=== PATIENT | female | born 1945 | race Caucasian/White ===

== ENCOUNTER → 2017-06-03 13:22 | Outpatient (CLI) | payer MEDICARE, OTHER, SELFPAY ==
[2017-05-07 13:46] VITALS: BP 164/80; BMI 32.8
--- NOTE | 2017-06-03 13:26 | STE_ITS ---
Reason For Study: CHEST PAIN Stress Results Protocol: Dobutamine Maximum Predicted HR: 149 bpm Target HR: 127 bpm% Maximum Predicted HR: 87 % DurationHeart Rate Stage (mm:ss) (bpm) BPDos e BASELINE 69 187/98 STAGE 1 3:00 67 168/9210.00 STAGE 2 5:00 11 2 194/9520.00 STAGE 3 3:34 12 9 184/7330.00 BASELINE 68 184/92 Stress Duration: 11:34 mm:ss Maximum Stress HR: 129 bpm Baseline Echocardiogram Findings The estimated ejection fraction is 45-50 %. Stress Echo Wall motion Data Resting WMIntermediate WMStress WM Resting Wall Motion Wall Motion Stress Mild global LV dysfunction. LV dilatation at peak infusion. EKG Data Normal intervals are noted. The patient was titrated from 10 mcg to a maximun of 30 mcg of dobutamine during the stress. The maximum heart rate attained was 136 beats per minute. This was 91% of maximum predicted heart rate. During dobutamine infusion, there were no ST or T wave changes noted to suggest ischemia. No clinical angina was noted. Interpretation Summary Total Definity used was 1 ml per protocol during procedure Mild global LV dysfunction. LV dilatation at peak infusion. The patient was titrated from 10 mcg to a maximun of 30 mcg of dobutamine during the stress. Abnormal, adequate, dobutamine echocardiogram. Positive for ischemia by echocardiographic criteria. The patient appeared to develop global LV dilatation at peak infusion. Rare PVCs noted. Hypertensive blood pressure response to dobutamine. Previous to the dobutamine immediately prior to conversion to dobutamine the patient attempted a modified Basilio treadmill echocardiogram however was unable to go any further than around 6 minutes 31 seconds before she became profoundly fatigued, short of breath and wheezy. Poor echo windows requiring Definity and enhancement agent. Baseline global LV dysfunction with EF around 45%. Final LVEF of 55%. Patient tolerated procedure well no complications. Ordering Physician: Ellis Keating Referring Physician: Ellis Keating Performed By: Keny Truong RT
== END ==
PROVIDERS: Family Provider Family Medicine Geriatric Medicine; PCP Family Medicine Geriatric Medicine; Visit Provider Internal Medicine Cardiovascular Disease
DX: I10 Essential (primary) hypertension (principal); E78.2 Mixed hyperlipidemia; I48.0 Paroxysmal atrial fibrillation; R07.9 Chest pain, unspecified
CPT/HCPCS: 93017; 93350; Q9957; A4216; C8928

== ENCOUNTER → 2017-06-05 13:25 | Outpatient (CLI) | payer MEDICARE, OTHER, SELFPAY ==
--- NOTE | 2017-06-05 13:30 | RAD_ITS ---
STUDY: X-RAY CHEST REASON FOR EXAM: Female, 71 years old. Shortness of breath, chest pain and intermittent numbness and tingling in the hands and fingers. TECHNIQUE: 2 views COMPARISON: Prior chest radiograph of June 29, 2016 FINDINGS: The lung flanagan are expanded without new consolidation or focal atelectasis. Stable chronic bibasilar changes. The appearance of a dense nodule over the left upper lobe appears to be callus related to a prior fracture of the left sixth rib. Stable cardiac size. Normal mediastinum and derek. Normal visualized pulmonary arteries. There is atherosclerotic calcification of the aortic arch with tortuosity. There is demineralization of the osseous structures. Severe compression deformity of the upper thoracic spine, probably T6, which is more compressed and now more sclerotic than on the prior exam. Severe compression deformity of the lower thoracic spine, probably T10, now status post kyphoplasty. There is no demonstrated abnormality of the visualized soft tissue structures of the upper abdomen. RAD/Chest PA and Lateral IMPRESSION: No acute cardiopulmonary findings or changes. Negative for new major consolidation, focal atelectasis or a substantial pleural effusion. Stable cardiac size. Atherosclerosis. Callous collar of a old fracture of the posterior left sixth rib projects over the left upper lobe. Incidental thoracic spine findings as stated above. Electronically Signed: Sheryl Cruz MD at 18:45 EST , Service support ,
[2017-06-05 14:12] LABS: Absolute Lymphocyte Count 0.73 X10^3/ul (0.83-4.51); Absolute Neutrophil Count 3.8 X10^3/uL (2.0-7.7); Eosinophil# 0.07 X10^3/uL; Eosinophils% 1.4 % (0-5); Hematocrit 36.7 % (37-47); Hemoglobin 11.9 g/dl (12.0-15.0); Lymphocyte # 0.73 X10^3/ul (4.0); Lymphocyte % 14.2 % (19-41); Mean Corp Hgb Conc 32.4 g/gl (32-36); Mean Corpuscular Hgb 30.4 pg (27.0-32.0); Mean Corpuscular Volume 93.9 fL (81-99); Mean Platelet Vol. 8.3 fl (6.2-12.0); Monocyte# 0.57 X10^3/uL; Monocyte% 11.1 % (0-10); Neutrophil # 3.75 X10^3/uL (2.7-7.7); Neutrophil % 73.1 % (47-70); Platelet Count 210 K/mm3 (150-450); RBC Distribution Width CV 13.6 % (11.6-14.6); RBC Distribution Width SD 46.8 fl (35.1-43.9); Red Blood Count 3.91 M/mm3 (4.2-5.4); White Blood Count 5.1 K/mm3 (4.4-11.0)
[2017-06-05 14:15] LABS: POSITIVE COUNT NO; POSITIVE DIFFERENTIAL NO; POSITIVE MORPHOLOGY NO
[2017-06-05 14:16] LABS: Partial Thromboplast Time 30.7 Seconds (24.1-36.2); Prothrombin Time (Protime)PT. 13.3 SECONDS (11.7-14.9)
[2017-06-05 14:46] LABS: Anion Gap 8 (5-15); BUN 19 mg/dL (7-18); BUN/Creat Ratio 24.9 RATIO (10-20); Calcium,Total 8.6 mg/dL (8.5-10.1); Chloride 102 mmol/L (98-107); Creatinine, Serum 0.76 mg/dL (0.55-1.02); EST Glomerular Filtration Rate 79 mL/min (>60); Est Glom Filt Rate - Afr Amer 96 mL/min (>60); Glucose 80 mg/dL (74-106); Potassium 4.2 mmol/L (3.5-5.1); Sodium Level 135 mmol/L (136-145)
== END ==
PROVIDERS: Family Provider Family Medicine Geriatric Medicine; PCP Family Medicine Geriatric Medicine; Visit Provider Internal Medicine Cardiovascular Disease
DX: R94.39 Abnormal result of other cardiovascular function study (principal); M94.0 Chondrocostal junction syndrome [Tietze]; I10 Essential (primary) hypertension; E78.2 Mixed hyperlipidemia; I48.0 Paroxysmal atrial fibrillation; R55 Syncope and collapse; R00.1 Bradycardia, unspecified; R07.9 Chest pain, unspecified
CPT/HCPCS: 36415; 71046; 80048; 85025; 85610; 85730

== ENCOUNTER → 2017-06-12 07:13 | Day surgery (SDC) | payer MEDICARE, OTHER, SELFPAY ==
[2017-06-11 09:54] VITALS: BMI 32.8
[2017-06-12 09:31] LABS: Blood Gas Specimen Type VEN; VBG BASE EXCESS 1 mmol/L (-1.0-3.5); VBG Bicarbonate 26 mmol/L (22-26); VBG Oxygen Content 27 mmol/L (23-33); VBG PO2 50 mmHg (25-40); VBG SO2 86 % (50-70); VBG pCO2 40.1 mmHg (41-51); VBG pH 7.42 (7.32-7.42)
[2017-06-12 09:31] LABS: Base Excess 1 mmol/L (-2 to +2); Blood Gas Specimen Type ART; PO2 85 mmHG (75-100); SO2 97 % (95-99); Total Carbon Dioxide 26 mmol/L; pH 7.44 (7.35-7.45)
[2017-06-12 09:31] LABS: Blood Gas Specimen Type VEN; VBG BASE EXCESS 0 mmol/L (-1.0-3.5); VBG Bicarbonate 25 mmol/L (22-26); VBG Oxygen Content 26 mmol/L (23-33); VBG PO2 45 mmHg (25-40); VBG SO2 81 % (50-70); VBG pCO2 40.8 mmHg (41-51)
--- NOTE | 2017-06-12 09:34 | CL.D_ITS ---
Patient Name: MARGARETTE WISE Study Date: 06/12/2017 Performing: Ellis Keating MD Ht: 57.08 inches 145 cm : 1945 Wt: 152.12 lbs 69 kg Age: 71 Gender: female BSA: 1.6 PROCEDURE(S) PERFORMED [id number]/LHC/COR/LV CLINICAL PROFILE AND INDICATIONS INDICATIONS: Shortness of Breath Stress/Imaging Stress Echocardiogram: Yes Result: IndeterminantStress Echocardiogram: Indetermina nt Angina Classification Anginal Classification w/in 2 Weeks: CCS III CAD Presentations: Unstable angina. Comorbidities/Risk Factors: 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 Dyslipidemia Prior CHF CONCLUSIONS Global LV systolic dysfunction- Mild Non obstructive coronary arteries Cardiac output - Preserved The patient has pulmonary hypertension which is moderate. RECOMMENDATIONS D/c plavix, d/c HCTZ, start lasix 40mg po daily, increase lisinopril to 40mg po qd. BP check in 2 wee ks. Successful Mynx closure of RFA due to severe HTN. DESCRIPTION OF PROCEDURE The patient arrived to the procedure lab. The risks and benefits of the procedure as well as a full d escription of our services here and current unavailability of surgical backup were fully explained to the patient and/or their significant other prior to the catheterization. The Timeout was completed, verifying the correct patient and procedure. The patient's procedural site was prepped and draped in the usual fashion. Local anesthetic was given subcutaneously to right groin region with Lidocaine 2%. Using a modified Seldinger technique, arterial access was obtained via the right femoral artery, a 4 Fr sheath was inserted Venous access was obtained via the right femoral vein, a 7Fr sheath was insert ed. A 7Fr thermal dilution catheter was inserted and right heart pressures were recorded, it was then advanced to PA position for cardiac outputs. Thermal dilution cardiac outputs were then recorded. O2 saturations were then obtained. The Thermal dilution catheter was then removed. Left Ventriculograph y was performed in MEDELLIN projection using a 4 Fr. Pigtail catheter. LV to AO pullback pressures were th en recorded. Left Coronary Artery selective angiography was performed in multiple views using a 4 Fr. JL5 catheter. Right Coronary Artery selective angiography was then performed in multiple views using a 4 Fr. 3DRC catheter.The arterial sheath was pulled and a Mynx closure device was deployed for hemo stasis. The venous sheath was then pulled and manual compression applied until hemostasis achieved CORONARY ANGIOGRAPHY DOMINANCE: Right Dominant LEFT HEART ASSESSMENT Left Ventricular Ejection Fraction: by LV Gram 45-50 % Global Hypokinesis - Mild Depressed Left Ventricular systolic function Elevated Left Ventricular End Diastolic Pressure RIGHT HEART ASSESSMENT Thermal CO: 8.05 Thermal CI: 5.03 PW: 14 PA: 37/16 24 RV: 53/6 16 RA: 11 PVR: 99 SVR: 1242 Pulmonary 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 Right Heart pressures - elevated LEFT MAIN: Angiographically normal LEFT ANTERIOR DECENDING ARTERY: Angiographically normal CIRCUMFLEX ARTERY: Angiographically normal RIGHT CORONARY ARTERY: Angiographically normal COMPLICATIONS No Complications PROCEDURE MEDICATIONS Versed 1 mg IV Nitro 200 mcg IC 06/12/2017 09:12:23 SUMMARY OF HEMODYNAMIC DATA Time AIR REST ECG 07:38:18 RA (11) SV 08:55:50 RV 53/6, 16 08:56:24 PA 37/16 (24) PA 08:59:20 PW (14) PV 09:00:01 LV 204/8, 17 09:05:35 LV 203/7, 15 09:06:13 PW (19) 09:06:13 LV 195/6, 15 09:07:09 RV 52/4, 15 09:07:09 LV 207/-9, 18 09:08:25 LVp 211/-10, 19 09:08:30 AOp 204/91 (132) 09:08:35 AO 181/99 (136) SA 09:10:33 Type SV CO (l/m) CI (l/m/ HR Time AIR REST Thermal 136.40 8.05 5.03 59 07:38:18 Label % O2 Pres/Loc Time AIR REST AO 97 PV 09:15:19 PA 84 PA 09:15:35 Signed By Ellis Keating MD On 06/12/2017 09:33:29 Ellis Keating MD
== END ==
PROVIDERS: Family Provider Family Medicine Geriatric Medicine; PCP Family Medicine Geriatric Medicine; Visit Provider Internal Medicine Cardiovascular Disease
DX: R07.9 Chest pain, unspecified (principal); I48.0 Paroxysmal atrial fibrillation; I10 Essential (primary) hypertension; E78.2 Mixed hyperlipidemia
CPT/HCPCS: 82803; 93460; 99152; 99153; C1760; J7040; C1751; C1769; C1894; Q9967

== ENCOUNTER → 2017-11-25 14:15 | Outpatient (CLI) | payer MEDICARE, OTHER, SELFPAY ==
[2017-11-25 16:16] LABS: Absolute Lymphocyte Count 0.95 X10^3/ul (0.83-4.51); Absolute Neutrophil Count 3.9 X10^3/uL (2.0-7.7); Basophil# 0.01 X10^3/uL; Basophil% 0.2 % (0-1); Eosinophil# 0.28 X10^3/uL; Hematocrit 36.4 % (37-47); Hemoglobin 12.1 g/dl (12.0-15.0); Lymphocyte # 0.95 X10^3/ul (4.0); Lymphocyte % 16.9 % (19-41); Mean Corp Hgb Conc 33.2 g/gl (32-36); Mean Corpuscular Hgb 30.6 pg (27.0-32.0); Mean Corpuscular Volume 92.2 fL (81-99); Monocyte# 0.47 X10^3/uL; Monocyte% 8.4 % (0-10); Neutrophil % 69.3 % (47-70); POSITIVE COUNT NO; POSITIVE DIFFERENTIAL NO; POSITIVE MORPHOLOGY NO; Platelet Count 261 K/mm3 (150-450); RBC Distribution Width CV 12.8 % (11.6-14.6); RBC Distribution Width SD 42.2 fl (35.1-43.9); Red Blood Count 3.95 M/mm3 (4.2-5.4); White Blood Count 5.6 K/mm3 (4.4-11.0)
[2017-11-25 16:31] LABS: Vitamin D,25 Hydroxy 23.4 ng/mL (29.95-100.01)
[2017-11-25 16:44] LABS: ALB/GLOB Ratio 1.1 RATIO (0.9-2.4); AST(SGOT) 24 U/L (15-37); Alanine Aminotransfer ALT/SGPT 24 U/L (13-56); Albumin, Serum 3.9 g/dL (3.2-5.0); Alkaline Phosphatase 83 U/L (45-117); Anion Gap 13 (5-15); BUN 14 mg/dL (7-18); BUN/Creat Ratio 14.5 RATIO (10-20); Calcium,Total 8.8 mg/dL (8.5-10.1); Chloride 101 mmol/L (98-107); Creatinine, Serum 0.97 mg/dL (0.55-1.02); EST Glomerular Filtration Rate 60 mL/min (>60); Est Glom Filt Rate - Afr Amer 73 mL/min (>60); Globulin 3.5 g/dL (2.2-4.2); Glucose 83 mg/dL (74-106); Potassium 3.9 mmol/L (3.5-5.1); Protein, Total 7.4 g/dL (6.4-8.2); Sodium Level 138 mmol/L (136-145); Thyroid Stim Hormone (TSH) 1.14 uIU/mL (0.358-3.74)
[2017-11-27 13:34] LABS: Hep C Antibodies 0.1 s/co ratio (0.0-0.9)
== END ==
PROVIDERS: Family Provider Family Medicine Geriatric Medicine; PCP Family Medicine Geriatric Medicine; Visit Provider Family Medicine Geriatric Medicine
DX: I10 Essential (primary) hypertension (principal); E55.9 Vitamin D deficiency, unspecified; Z13.89 Encounter for screening for other disorder
CPT/HCPCS: 36415; 80053; 82306; 84443; 85025; 86803

== ENCOUNTER 2018-01-27 18:17 | Emergency (ER) | payer MEDICARE, OTHER, SELFPAY ==
[2018-01-27 18:18] VITALS: BP 171/84; PULSE 64; RESP 18; TEMP 36.6; O2SAT 99; BMI 36.3
--- NOTE | 2018-01-27 18:54 | US_ITS ---
STUDY: VENOUS DOPPLER ULTRASOUND - LEFT LOWER EXTREMITY REASON FOR EXAM: Female, 72 years old. LT LOWER LEG REDNESS WARMTH, EDEMA X 2 DAYS NO PAIN TECHNIQUE: Ultrasound evaluation of the deep vein system to include barnard-scale imaging and compression was performed. Barnard-scale imaging and Doppler sonographic evaluation, including duplex spectral analysis and qualitative color flow sonography, was performed. COMPARISON: None. FINDINGS: Common Femoral Vein: Normal compression, spontaneity and augmentation. Normal color Doppler. Common Femoral Vein/Greater Saphenous Junction: Normal compression, spontaneity and augmentation. Normal color Doppler. Deep Femoral Vein: Normal compression, spontaneity and augmentation. Normal color Doppler. Femoral Proximal: Normal compression, spontaneity and augmentation. Normal color Doppler. Femoral Middle: Normal compression, spontaneity and augmentation. Normal color Doppler. Femoral Distal: Normal compression, spontaneity and augmentation. Normal color Doppler. Popliteal Vein: Normal compression, spontaneity and augmentation. Normal color Doppler. Posterior Tibial Vein: Normal compression, spontaneity and augmentation. Normal color Doppler. Peroneal Vein: Normal compression, spontaneity and augmentation. Normal color Doppler. US/Venous Duplex Imag/Limited/Uni IMPRESSION: Normal venous Doppler ultrasound of the lower extremity. Electronically Signed: Ty Anderson MD at 19:35 EDT , Service support ,
--- NOTE | 2018-01-27 18:57 | ED.DCSUM_ITS ---
- ER Visit Summary Date of Service: 01/27/18 Chief Complaint: LLE redness History of Present Illness: The patient is a 72 F presenting with left lower leg redness. She states this started approximately 4 days ago. She has mild pain and redness to the left lower extremity. Denies injury. Denies fever. Denies chest pain or shortness of breath. Physical Examination: Vitals are stable. Patient is afebrile. Alert no acute distress. HEENT exam is unremarkable. Neck is supple. Lungs are clear and equal bilaterally. Heart is regular rate and rhythm. Extremities mild anterior lower leg erythema, and mild right midfoot erythema. No calf tenderness. Normal distal pulses. Skin is warm and dry. No focal neurologic deficit. Remainder of exam is unremarkable. Emergency Department Course and Treatment: Patient was given Ancef IV. Venous Doppler shows no evidence of DVT. Discussed with Dr. Monaco and he will see her in the office tomorrow for recheck. She is given a prescription for Keflex. Advised return to ED if worsening complaints. Disposition: Discharge home Impression: Left lower extremity cellulitis This note was generated with [employer] dictation software. It may contain incorrect words, spelling, and punctuation that were not noted in review of the chart prior to signing ED Disposition - Plan for ED Patient: Chief Complaint: Lower Extremity Injury Instructions: ED Infec Skin Cellulitis Prescriptions: Cephalexin [Keflex] 500 mg PO Q6 #40 capsule Referrals: Cassius Monaco Chi, MD [Primary Care Provider] -
[2018-01-27] MEDS: Cefazolin 1 GM/50 ML BAG IV (19:00)
--- NOTE | 2018-01-27 19:49 | ED.DEP ---
ED Disposition - Plan for ED Patient: Chief Complaint: Lower Extremity Injury Instructions: ED Infec Skin Cellulitis Prescriptions: Cephalexin [Keflex] 500 mg PO Q6 #40 capsule Referrals: Cassius Monaco Chi, MD [Primary Care Provider] -
[2018-01-27 20:03] VITALS: BP 142/79; PULSE 81; RESP 22; O2SAT 98
--- NOTE | 2018-01-27 20:04 | ED.RN ---
THIS NURSE REVIEWED D/C INSTRUCTIONS WITH PT. PT VERBALIZED UNDERSTANDING OF INSTRUCTIONS. IV D/C. IV CATHETER INTACT. PT DENIES FURTHER NEEDS OR QUESTIONS AT THIS TIME. PT AMBULATES FROM ROOM ON OWN WITHOUT ASSISTANCE FROM STAFF
== END 2018-01-27 20:06 | disposition home or self-care (01) ==
LOC: ED 19:37
PROVIDERS: Emergency Provider Emergency Medicine; Family Provider Family Medicine Geriatric Medicine; PCP Family Medicine Geriatric Medicine
DX: L03.116 Cellulitis of left lower limb (principal); I10 Essential (primary) hypertension
CPT/HCPCS: 93971; 96365; 99283; J7050; A4216

== ENCOUNTER → 2018-02-01 11:13 | Outpatient (CLI) | payer MEDICARE, OTHER, SELFPAY ==
--- NOTE | 2018-02-01 11:38 | RAD_ITS ---
STUDY: X-RAY - LEFT FOOT CLINICAL: Acute pain across top of arch. TECHNIQUE: 3 view(s) of the foot. COMPARISON: Radiographs 01/23/2012. FINDINGS: There is osteopenia. There is a small plantar calcaneal enthesophyte. Normal visualized subtalar, talonavicular, calcaneocuboid, tarsal and tarsometatarsal articulations. There is chronic healed fracture deformity of the distal fifth metatarsal. Normal metatarsophalangeal joint of the great toe. There is mild hallux longus deformity. Normal tibial and fibular sesamoid bones. Normal interphalangeal joint of the great toe. Normal phalanges of the great toe. There are resection arthroplasties of the fourth and fifth proximal interphalangeal joints as on the prior study. There is vascular calcification. RAD/Foot min 3 Views IMPRESSION: Chronic healed fracture deformity of the fifth metatarsal. Postsurgical changes. Small plantar calcaneal enthesophyte. Osteopenia. Electronically Signed: Jay Beckett MD at 12:28 EDT Tel , Service support ,
[2018-02-01 12:40] LABS: Erythrocyte Sedimentation Rate 4 mm/hr (0-30)
[2018-02-01 12:43] LABS: Absolute Lymphocyte Count 0.85 X10^3/ul (0.83-4.51); Absolute Neutrophil Count 2.6 X10^3/uL (2.0-7.7); Basophil# 0.01 X10^3/uL; Basophil% 0.2 % (0-1); Eosinophil# 0.12 X10^3/uL; Eosinophils% 2.9 % (0-5); Hematocrit 34.8 % (37-47); Hemoglobin 11.2 g/dl (12.0-15.0); Lymphocyte # 0.85 X10^3/ul (4.0); Lymphocyte % 20.6 % (19-41); Mean Corp Hgb Conc 32.2 g/gl (32-36); Mean Corpuscular Hgb 29.9 pg (27.0-32.0); Mean Platelet Vol. 8.9 fl (6.2-12.0); Monocyte# 0.53 X10^3/uL; Monocyte% 12.9 % (0-10); Neutrophil % 63.2 % (47-70); Platelet Count 284 K/mm3 (150-450); RBC Distribution Width CV 13.3 % (11.6-14.6); Red Blood Count 3.74 M/mm3 (4.2-5.4); White Blood Count 4.1 K/mm3 (4.4-11.0)
[2018-02-01 12:45] LABS: POSITIVE COUNT NO; POSITIVE DIFFERENTIAL NO; POSITIVE MORPHOLOGY NO
[2018-02-01 12:46] LABS: Anion Gap 9 (5-15); BUN 17 mg/dL (7-18); BUN/Creat Ratio 26.9 RATIO (10-20); CRP 3.68 mg/L (0.0-3.0); Calcium,Total 9.1 mg/dL (8.5-10.1); Chloride 106 mmol/L (98-107); Creatinine, Serum 0.63 mg/dL (0.55-1.02); EST Glomerular Filtration Rate 99 mL/min (>60); Est Glom Filt Rate - Afr Amer 119 mL/min (>60); Glucose 76 mg/dL (74-106); Potassium 3.8 mmol/L (3.5-5.1); Sodium Level 142 mmol/L (136-145); Uric Acid 3.4 mg/dL (2.6-6.0)
== END ==
PROVIDERS: Family Provider Family Medicine Geriatric Medicine; PCP Family Medicine Geriatric Medicine; Referring Provider Family Medicine Geriatric Medicine; Visit Provider Family Medicine Geriatric Medicine
DX: M10.9 Gout, unspecified (principal); M79.609 Pain in unspecified limb
CPT/HCPCS: 36415; 73630; 80048; 84550; 85025; 85652; 86140

== ENCOUNTER → 2018-03-22 13:14 | Outpatient (CLI) | payer MEDICARE, OTHER, SELFPAY ==
[2018-03-22 13:15] VITALS: BMI 32.8
--- NOTE | 2018-03-22 13:19 | RAD_ITS ---
STUDY: X-RAY - RIGHT KNEE REASON FOR EXAM: Female, 72 years old. Postop 1-2 year follow-up. TECHNIQUE: 4 view(s) of the knee. COMPARISON: 4 views of the right knee September 12, 2016. FINDINGS: Again seen is prior right total knee arthroplasty. Metal prostheses overlying the femoral condyles and tibial plateau remain well seated, and in anatomic alignment. Radiolucent prosthesis along the posterior aspect of the patella also grossly stable. Normal visualized proximal fibula. There is no demonstrated destructive osseous lesion or fracture. Normal medial femorotibial compartment. Normal lateral femorotibial compartment. Normal patellofemoral articulation. Normal proximal tibiofibular articulation. There is stable minor soft tissue fullness in the suprapatellar and infrapatellar regions there is question of a very small volume joint effusion. The soft tissue structures are unremarkable. RAD/Knee 4 or More Views IMPRESSION: Prior right total knee arthroplasty again noted. Question of stable small joint effusion. No associated acute osseous abnormality of the right knee. Electronically Signed: Dimitri Swain MD at 14:06 EST , Service support ,
--- NOTE | 2018-03-22 13:19 | RAD_ITS ---
STUDY: X-RAY - LEFT KNEE REASON FOR EXAM: Female, 72 years old. 1-2 year postop follow-up. TECHNIQUE: 4 view(s) of the knee, 2 which are labeled as upright. COMPARISON: 4 weightbearing views of the left knee March 16, 2017. FINDINGS: Again seen are changes of prior left total knee arthroplasty. Metal prostheses overlying the femoral condyles and tibial plateau remain well seated, and in anatomic alignment. There is grossly stable radiolucent prosthesis along the posterior margin of the patella. Normal visualized proximal fibula. There is no demonstrated destructive osseous lesion or acute fracture. Normal medial femorotibial compartment. Normal lateral femorotibial compartment. Normal patellofemoral articulation. Normal proximal tibiofibular articulation. Diminished soft tissue fullness in the suprapatellar and infrapatellar regions suggesting a clearing small volume joint effusion. The soft tissue structures are unremarkable. RAD/Knee 4 or More Views IMPRESSION: Stable appearing prior left total knee arthroplasty. Diminishing suggestion of small joint effusion. No acute osseous abnormalities demonstrated. Electronically Signed: Dimitri Swain MD at 14:09 EST , Service support ,
--- OUTSIDE RECORDS SUMMARY | 2018-06-24 04:08 | XMS RPT_ITS ---
:1945 Author Organization OHIP Support Name Relationship Address Phone DONALD KOEHLER Unavailable [address] + [place] [address] [employer] Unavailable [address] + [place] [address] DONALD KOEHLER Unavailable [address] + [place] [address] [employer] Unavailable [address] + [place] [address] DONALD KOEHLER Unavailable [address] + [place] [address] [employer] Unavailable [address] + [place] [address] CHRISTINA KOEHLERERY Unavailable [address] + [place] [address] [employer] Unavailable [address] + [place] [address] CHRISTINA KOEHLERERY Unavailable [address] + [place] [address] [employer] Unavailable [address] + [place] [address] CHRISTINA KOEHLERERY Unavailable [address] + [place] [address] [employer] Unavailable [address] + [place] [address] CHRISTINA KOEHLERERY Unavailable [address] + [place] [address] [employer] Unavailable [address] + [place] [address] CHRISTINA KOEHLERERY Unavailable [address] + [place] [address] [employer] Unavailable [address] + [place] [address] CAPOZZIO DONALD Unavailable [address] + [place] [address] [employer] Unavailable [address] + [place] [address] CAPOZZIO, DONALD Unavailable [address] + [place] [address] [employer] Unavailable [address] + [place] [address] CAPOZZIO, DONALD Unavailable [address] + [place] [address] [employer] Unavailable [address] + [place] [address] CAPOZZIO, DONALD Unavailable [address] + [place] [address] [employer] Unavailable [address] + [place] [address] CAPOZZIO DONALD Unavailable [address] + [place] [address] [employer] Unavailable [address] + [place] [address] CAPOZZIO, DONALD Unavailable [address] + [place] [address] [employer] Unavailable [address] + [place] [address] CAPOZZIO, DONALD Unavailable [address] + [place] [address] [employer] Unavailable [address] + [place] [address] CAPOZZIO DONALD Unavailable [address] + [place] [address] [employer] Unavailable [address] + [place] [address] [employer] Unavailable [address] + [place] [address] Care Team Providers Name Role Phone Soham Hernandez Attending Unavailable Carlos Enrique, Cassius Chi Referring Unavailable Soham Hernandez Attending Unavailable Soham Hernandez Referring Unavailable Carlos Enrique, Cassius Chi Primary Care Unavailable Ellis Keating Attending Unavailable Carlos Enrique, Cassius Chi Referring Unavailable Carlos Enrique, Cassius Chi Primary Care Unavailable Ellis Keating Attending Unavailable Ellis Keating Referring Unavailable Carlos Enrique, Cassius Chi Primary Care Unavailable Ellis Keating Attending Unavailable Carlos Enrique, Cassius Chi Referring Unavailable Carlos Enrique, Cassius Chi Primary Care Unavailable Ellis Keating Attending Unavailable Ellis Keating Referring Unavailable Carlos Enrique, Cassius Chi Primary Care Unavailable Ellis Keating Attending Unavailable Ellis Keating Referring Unavailable Carlos Enrique, Cassius Chi Primary Care Unavailable Ellis Keating Attending Unavailable Carlos Enrique, Cassius Chi Referring Unavailable Carlos Enrique, Cassius Chi Primary Care Unavailable Ellis Keating Attending Unavailable Ellis Keating Referring Unavailable Ellis Keating Attending Unavailable Jackeline Love Attending Unavailable Carlos Enrique, Cassius Chi Referring Unavailable Carlos Enrique, Cassius Chi Attending Unavailable Carlos Enrique, Cassius Chi Primary Care Unavailable Altagracia Jenkins Attending Unavailable Ellis Keating Attending Unavailable Carlos Enrique, Cassius Chi Referring Unavailable Carlos Enrique, Cassius Chi Primary Care Unavailable Ellis Keating Attending Unavailable Carlos Enrique, Cassius Chi Referring Unavailable Carlos Enrique, Cassius Chi Primary Care Unavailable Carlos Enrique, Cassius Chi Primary Care Unavailable Polly Sandy Attending Unavailable Carlos Enrique, Cassius Chi Attending Unavailable Carlos Enrique, Cassius Chi Primary Care Unavailable Carlos Enrique, Cassius Chi Referring Unavailable PROBLEMS PROBLEMS DATE TYPE CONDITION / CODE ATTENDING STATUS SOURCE 03/22/2018 Unknown M25.561 - Pain in Soham Hernandez Active [facility] right knee / Community M25.561(ICD-10) Hospital Repository 03/22/2018 Unknown M25.562 - Pain in Soham Hernandez Active [facility] left knee / Community M25.562(ICD-10) Hospital Repository 02/01/2018 Unknown M10.9 - Gout, Carlos Enrique, Cassius Chi Active [facility] unspecified / Community M10.9(ICD-10) Hospital Repository 02/01/2018 Unknown M79.609 - Pain in Carlos Enrique, Cassius Chi Active [place] unspecified limb / Community M79.609(ICD-10) Hospital Repository 12/10/2017 Unknown I10 - Essential Ellis Keating Active [facility] (primary) Community hypertension / Hospital I10(ICD-10) Repository 12/10/2017 Unknown E78.2 - Mixed Ellis Keating Active [place] hyperlipidemia / Community E78.2(ICD-10) Hospital Repository 12/10/2017 Unknown R07.9 - Chest pain, Ellis Keating Active [facility] unspecified / Community R07.9(ICD-10) Hospital Repository 12/10/2017 Unknown Z98.890 - Other Ellis Keating Active [place] specified Community postprocedural Hospital states / Repository Z98.890(ICD-10) 07/10/2017 Unknown I48.0 - Paroxysmal Ellis Keating Active [facility] atrial fibrillation Community / I48.0(ICD-10) Hospital Repository 07/10/2017 Unknown R06.02 - Shortness Ellis Keating Active [place] of breath / Community R06.02(ICD-10) Hospital Repository 06/05/2017 Unknown R94.39 - Abnormal Ellis Keating Active [facility] result of other [facility] cardiovascular [facility] function study / Repository R94.39(ICD-10) 06/05/2017 Unknown R55 - Syncope and Ellis Keating Active [facility] collapse / Community R55(ICD-10) Hospital Repository 06/05/2017 Unknown R00.1 - Bradycardia, Ellis Keating Active [place] unspecified / Community R00.1(ICD-10) Hospital Repository PROCEDURES PROCEDURES No Procedure Records FoundRESULTS RESULTS ORTHOPEDIC VISIT Observed: 03/22/2018 Status: F Source: [place] REPORT 2:55 PM [facility] REPOSITORY [facility] [address] [place] [address] OFFICE VISIT Date of Service: 03/22/18 MR#: [id number] Acct: [id number] Name: MARGARETTE WISE Rep #: [id number] : 1945 Provider: DELMY Hernandez Age/Sex: 72/F Location: [facility] Status: Signed Intake Vital Signs03/22/18 Body Mass Index (BMI) 32.8 03/08/18 Body Mass Index (BMI) 32.8 Intake Visit Reasons: bilateral knee Chief Complaint: Routine f/u Allergies piroxicam Allergy (Verified 01/27/18 18:19) Unknown adhesive tape Adverse Reaction (Verified 01/27/18 18:19) Rash Medications Pravastatin [Pravachol] 40 mg PO QHS 01/28/13 [History Confirmed 03/22/18] Potassium Chloride [Klor-Con] 20 meq PO DAILY 03/18/17 [History Confirmed 03/22/18] calcium phosphate 250 mg-vitamin D3 200 unit chewable tablet 2 tab PO BID 05/07/17 [History Confirmed 03/22/18] denosumab 60 mg/mL subcutaneous syringe 60 mg SC [id number] 05/07/17 [History Confirmed 03/22/18] furosemide 40 mg tablet 40 mg PO QDAY #30 tab 06/12/17 [Rx Confirmed 03/22/18] lisinopril 40 mg tablet 40 mg PO QDAY #30 tab 06/12/17 [Rx Confirmed 03/22/18] carvedilol 12.5 mg tablet 12.5 mg PO BID #90 tab 11/09/17 [Rx Confirmed 03/22/18] PFSH Medical History Costochondritis (Resolved) HTN (hypertension) (Chronic) Mixed hyperlipidemia (Chronic) Paroxysmal atrial fibrillation (Chronic) Syncope and collapse (Chronic) Bradycardia (Chronic) GERD (gastroesophageal reflux disease) (Chronic) Vertigo (Chronic) History of hysterectomy (Resolved) H/O: hysterectomy (Inactive) bilateral feet surgery (Inactive) Surgical History History of left heart catheterization (Chronic 06/12/17) History of knee replacement, total (Chronic) History of tonsillectomy (Resolved) History of carpal tunnel release (Inactive) History of tonsillectomy (Inactive) Right TKA (Inactive) Family History Mother 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 Father , from [place] at age 69 CAD (coronary artery disease) Myocardial infarction, Onset Age: 69 Brother 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 Heart disease Myocardial infarction Pacemaker Social History Smoking Status: Never smoker alcohol intake: current substance use type: does not use what type of physical activity do you participate in: none HPI bilateral knee: Details: MARGARETTE WISE is a 72 year old F here today for f/u 08/22/15 right TKA and 04/08/16 left TKA. She has no complaints of pain but does say she experiences some tingling in both legs, most often at night in bed. No instability, clicking or swelling. She is working with no issues. ROS Musc Denies joint pain, Denies joint swelling, Reports as per HPI Ortho Exam Right Knee Skin/Wound: Yes healed Swelling: No Homans Sign: No Knee ROM: Yes ROM-Extension -20 to 0 (actually negative degrees), No ROM-Flexion 0-140 (120) Examination: No Med jt line tenderness, No Pain with flexion, No Lat jt line tenderness, No Pain with extention Quad Atrophy: No Stability: NML: Anterior Drawer Popliteal Adenopathy: No Patella Grind: No Left Knee Skin/Wound: Yes healed Swelling: No Homans Sign: No Knee ROM: Yes ROM-Extension -20 to 0 (actually negative extension), No ROM-Flexion 0-140 (120) Examination: No med jt line tenderness, No Pain with flexion, No Lat jt line tenderness, No Chiara's Test Quad Atrophy: No Stability: NML: Anterior Drawer, NML: Posterior Drawer Popliteal Adenopathy: No Patella Grind: No Assessment AND Plan Problems 1. Status post left knee replacement Z96.652 2. Status post right knee replacement Z96.651 Plan Obtained Xrays of patient's bilateral knees. Personally reviewed Xrays. There is no obvious fracture, dislocation, or lucency noted. There is evident hardware noted in both knees in good anatomic position at this time. There is some minor osteophyte formation noted around the tibial plateau region and inferior patella. Patient has been doing very well post bilateral knee arthroplasty. She has no pains or problems at this time stating she is doing everything that she needs to do from activities of daily living. She denies any swelling of the knee or any other abnormalities on inspection. Patient is very pleased with any field states she is not coming back again. Patient can follow-up as needed. This note was generated with [employer] dictation software. It may contain incorrect words, spelling, and punctuation that were not noted in checking the note before signing. Orders Orders: Coding Level of Care Code Off vis,est,level 3 Diagnoses Status post left knee replacement Z96.652 Status post right knee replacement Z96.651 03/22/18 1455 <Electronically signed by Soham BROCK> Date Soham BROCK Cosigner Signature: Date (if applicable) CC: KNEE 4 OR MORE Observed: 03/22/2018 Status: F Source: [place] VIEWS 1:19 [facility] REPOSITORY [facility] Imaging Services [address] [place] [address] Knee 4 or More Views MR#: [id number] Acct: [id number] Name: MARGARETTE WISE Rep #: [id number] : 1945 F 72 From: Darrell Swain MD PCP: Cassius Monaco MD, Chi Status: REG CLI Study: Knee 4 or More Views Date of Exam: 03/22/18 Exam# [id number] Ordering Dr: Soham Hernandez STUDY: X-RAY - RIGHT KNEE REASON FOR EXAM: Female, 72 years old. Postop 1-2 year follow-up. TECHNIQUE: 4 view(s) of the knee. COMPARISON: 4 views of the right knee September 12, 2016. FINDINGS: Again seen is prior right total knee arthroplasty. Metal prostheses overlying the femoral condyles and tibial plateau remain well seated, and in anatomic alignment. Radiolucent prosthesis along the posterior aspect of the patella also grossly stable. Normal visualized proximal fibula. There is no demonstrated destructive osseous lesion or fracture. Normal medial femorotibial compartment. Normal lateral femorotibial compartment. Normal patellofemoral articulation. Normal proximal tibiofibular articulation. There is stable minor soft tissue fullness in the suprapatellar and infrapatellar regions there is question of a very small volume joint effusion. The soft tissue structures are unremarkable. RAD/Knee 4 or More Views IMPRESSION: Prior right total knee arthroplasty again noted. Question of stable small joint effusion. No associated acute osseous abnormality of the right knee. Electronically Signed: Dimitri Swain MD at 14:06 EST , Service support , CC: DELMY Hernandez; Cassius Monaco MD Child Support Specialist: Signed KNEE 4 OR MORE Observed: 03/22/2018 Status: F Source: [place] VIEWS 1:19 PM [facility] REPOSITORY [facility] Imaging Services [address] [place] [address] Knee 4 or More Views MR#: [id number] Acct: [id number] Name: MARGARETTE WISE Rep #: [id number] : 1945 F 72 From: Darrell Swain MD PCP: Carlos Enrique JULES,Cassius Amaro Status: REG CLI Study: Knee 4 or More Views Date of Exam: 03/22/18 Exam# [id number] Ordering Dr: Soham Hernandez STUDY: X-RAY - LEFT KNEE REASON FOR EXAM: Female, 72 years old. 1-2 year postop follow-up. TECHNIQUE: 4 view(s) of the knee, 2 which are labeled as upright. COMPARISON: 4 weightbearing views of the left knee March 16, 2017. FINDINGS: Again seen are changes of prior left total knee arthroplasty. Metal prostheses overlying the femoral condyles and tibial plateau remain well seated, and in anatomic alignment. There is grossly stable radiolucent prosthesis along the posterior margin of the patella. Normal visualized proximal fibula. There is no demonstrated destructive osseous lesion or acute fracture. Normal medial femorotibial compartment. Normal lateral femorotibial compartment. Normal patellofemoral articulation. Normal proximal tibiofibular articulation. Diminished soft tissue fullness in the suprapatellar and infrapatellar regions suggesting a clearing small volume joint effusion. The soft tissue structures are unremarkable. RAD/Knee 4 or More Views IMPRESSION: Stable appearing prior left total knee arthroplasty. Diminishing suggestion of small joint effusion. No acute osseous abnormalities demonstrated. Electronically Signed: Dimitri Swain MD at 14:09 EST , Service support , CC: DELMY Hernandez; Cassius Monaco MD Child Support Specialist: Signed FOOT MIN 3 VIEWS Observed: 02/01/2018 Status: F Source: [place] 11:31 AM [facility] REPOSITORY [facility] [place] [address] Foot min 3 Views MR#: [id number] Acct: [id number] Name: MARGARETTE WISE Rep #: [id number] : 1945 F 72 From: Jay Beckett MD PCP: Cassius Monaco MD, Chi Status: REG CLI Study: Foot min 3 Views Date of Exam: 02/01/18 Exam# [id number] Ordering Dr: Cassius Monaco MD STUDY: X-RAY - LEFT FOOT CLINICAL: Acute pain across top of arch. TECHNIQUE: 3 view(s) of the foot. COMPARISON: Radiographs 01/23/2012. FINDINGS: There is osteopenia. There is a small plantar calcaneal enthesophyte. Normal visualized subtalar, talonavicular, calcaneocuboid, tarsal and tarsometatarsal articulations. There is chronic healed fracture deformity of the distal fifth metatarsal. Normal metatarsophalangeal joint of the great toe. There is mild hallux longus deformity. Normal tibial and fibular sesamoid bones. Normal interphalangeal joint of the great toe. Normal phalanges of the great toe. There are resection arthroplasties of the fourth and fifth proximal interphalangeal joints as on the prior study. There is vascular calcification. RAD/Foot min 3 Views IMPRESSION: Chronic healed fracture deformity of the fifth metatarsal. Postsurgical changes. Small plantar calcaneal enthesophyte. Osteopenia. Electronically Signed: Jay Beckett MD at 12:28 EDT Tel , Service support , CC: Cassius Monaco MD Child Support Specialist: Signed ERYTHROCYTE SED RATE Collected: 02/01/2018 Status: F Source: [place] 11:14 AM [facility] REPOSITORY TYPE CODE TESTS RESULT OUT OF RANGE REFERENCE UNITS LAB L102.0000 0-30 mm/hr Normal SED RATE 4 Performed By: #### L101.9900, L100.0100 #### [facility] [address] [place], [address] CBC W/DIFF, AUTOMATED Collected: 02/01/2018 Status: F Source: [place] 11:14 AM [facility] REPOSITORY TYPE CODE TESTS RESULT OUT OF RANGE REFERENCE UNITS LAB L100.1000 4.4-11.0 K/mm3 Low WBC 4.1 LAB L100.1200 4.2-5.4 M/mm3 Low RBC 3.74 LAB L100.1300 12.0-15.0 g/dl Low HGB 11.2 LAB L100.1400 37-47 % Low HCT 34.8 LAB L100.1500 81-99 fL Normal MCV 93.0 LAB L100.1600 27.0-32.0 pg Normal MCH 29.9 LAB L100.1700 32-36 g/gl Normal MCHC 32.2 LAB L100.1810 11.6-14.6 % Normal RDW CV 13.3 LAB L100.1820 35.1-43.9 fl High RDW SD 44.0 LAB L100.1900 150-450 K/mm3 Normal PLT 284 LAB L100.2000 6.2-12.0 fl Normal MPV 8.9 LAB L100.2100 47-70 % Normal NEUT% 63.2 LAB L100.2200 19-41 % Normal LY% 20.6 LAB L100.2300 0-10 % High MONO% 12.9 LAB L100.2400 0-5 % Normal EO% 2.9 LAB L100.2500 0-1 % Normal BASO% 0.2 LAB L100.2550 0.0-0.9 % Normal IM GRAN % 0.200 Result Comment: IG% - Immature Granulocytes (promyelocytes, myelocytes and metamyelocytes) > 1% indicates that a LEFT SHIFT is Present. LAB L100.2620 2.0-7.7 X10 3/uL Normal Absolute Neut 2.6 LAB L100.2720 0.83-4.51 X10 3/ul Normal Absolute Lymph 0.85 Performed By: #### L101.9900, L100.0100 #### [facility] [address] [place], [place], [id number] BASIC METABOLIC Collected: 02/01/2018 Status: F Source: [place] PROFILE (BMP) 11:14 AM [facility] REPOSITORY TYPE CODE TESTS RESULT OUT OF RANGE REFERENCE UNITS LAB L501.0100 74-106 mg/dL Normal GLU 76 Result Comment: Please note revised GLUCOSE reference range effective 2017. LAB L501.1000 7-18 mg/dL Normal BUN 17 LAB L501.1100 0.55-1.02 mg/dL Normal CREAT,SERUM 0.63 Result Comment: The validity of the calculated GFR AND GFRAA in patients over 70 years has not been determined. Clinical correlation is essential. LAB L501.1110 >60 mL/min Normal EST GFR 99 Result Comment: Non- GFR Calc LAB L501.1115 >60 mL/min Normal EST GFR - AA 119 Result Comment: GFR Calc LAB L501.1300 10-20 RATIO High BUN/CRE 26.9 LAB L501.2200 8.5-10.1 mg/dL CA Normal 9.1 LAB L501.5300 136-145 mmol/L NA Normal 142 LAB L501.5600 3.5-5.1 mmol/L K Normal 3.8 LAB L501.5900 98-107 mmol/L CL Normal 106 LAB L501.6100 21.0-32.0 mmol/L Normal CO2 27.0 LAB L501.6200 5-15 Normal GAP 9 Performed By: #### L500.2500, L501.1400, L501.6710 #### [facility] [address] [place], [place], [address] URIC ACID Collected: 02/01/2018 Status: F Source: [place] 11:14 AM [facility] REPOSITORY TYPE CODE TESTS RESULT OUT OF RANGE REFERENCE UNITS LAB L501.1400 2.6-6.0 mg/dL Normal URIC 3.4 Result Comment: The drugs N-Acetylcysteine and Metamizole may falsely depress this assay. Performed By: #### L500.2500, L501.1400, L501.6710 #### [facility] [address] [place], [address] CRP Collected: 02/01/2018 Status: F Source: [place] 11:14 AM [facility] REPOSITORY TYPE CODE TESTS RESULT OUT OF RANGE REFERENCE UNITS LAB L501.6710 0.0-3.0 mg/L High 3.68 C-REACTIVE PROT Result Comment: C-Reactive Protein (CRP) provides useful information for the diagnosis, therapy and monitoring of inflammatory processes and associated diseases. For the evaluation of Relative Risk for Cardiovascular Disease, a High Sensitivity CRP (HSCRP) should be ordered. Performed By: #### L500.2500, L501.1400, L501.6710 #### [facility] [address] [place], [address] EMERGENCY DEPARTMENT Observed: 01/27/2018 Status: F Source: [place] SUMMARY 7:51 PM [facility] REPOSITORY [facility] Medical Records Department [address] [facility] [place] [address] Emergency Department Summary 01/27/18 1854 MR#: [id number] Acct: [id number] Name: MARGARETTE WISE Rep #: [id number] : 1945 72 From: Polly Sandy MD PCP: Carlos Enrique JULES,Cassius Amaro Status: REG ER - ER Visit Summary Date of Service: 01/27/18 Chief Complaint: LLE redness History of Present Illness: The patient is a 72 F presenting with left lower leg redness. She states this started approximately 4 days ago. She has mild pain and redness to the left lower extremity. Denies injury. Denies fever. Denies chest pain or shortness of breath. Physical Examination: Vitals are stable. Patient is afebrile. Alert no acute distress. HEENT exam is unremarkable. Neck is supple. Lungs are clear and equal bilaterally. Heart is regular rate and rhythm. Extremities mild anterior lower leg erythema, and mild right midfoot erythema. No calf tenderness. Normal distal pulses. Skin is warm and dry. No focal neurologic deficit. Remainder of exam is unremarkable. Emergency Department Course and Treatment: Patient was given Ancef IV. Venous Doppler shows no evidence of DVT. Discussed with Dr. Monaco and he will see her in the office tomorrow for recheck. She is given a prescription for Keflex. Advised return to ED if worsening complaints. Disposition: Discharge home Impression: Left lower extremity cellulitis This note was generated with [employer] dictation software. It may contain incorrect words, spelling, and punctuation that were not noted in review of the chart prior to signing ED Disposition - Plan for ED Patient: Chief Complaint: Lower Extremity Injury Instructions: ED Infec Skin Cellulitis Prescriptions: Cephalexin [Keflex] 500 mg PO Q6 #40 capsule Referrals: Cassius Monaco Chi, MD [Primary Care Provider] - What to do if you have Problems For any increased pain, shortness of breath, bleeding, nausea or vomiting, chest pain, or any unexpected problems, contact your Primary Care Provider. Call [facility] ([phone]) or report to the closest Emergency Room. Call 911 if necessary. 01/27/181950 <Electronically signed by Polly Sandy MD> Date Polly Sandy MD Cosigner Signature (If Indicated): Date CC: Cassius Monaco MD DISCHARGE INSTRUCTION Observed: 01/27/2018 Status: F Source: [place] 7:50 PM [facility] REPOSITORY [facility] Medical Records Department [address] [place] [address] Discharge Instruction 01/27/181948 MR#: [id number] Acct: [id number] Name: MARGARETTE WISE Rep #: [id number] : 1945 72 From: Polly Sandy MD PCP: Cassius Monaco MD, Chi Status: REG ER ED Disposition - Plan for ED Patient: Chief Complaint: Lower Extremity Injury Instructions: ED Infec Skin Cellulitis Prescriptions: Cephalexin [Keflex] 500 mg PO Q6 #40 capsule Referrals: Cassius Monaco Chi, MD [Primary Care Provider] - What to do if you have Problems For any increased pain, shortness of breath, bleeding, nausea or vomiting, chest pain, or any unexpected problems, contact your Primary Care Provider. Call [facility] ([phone]) or report to the closest Emergency Room. Call 911 if necessary. 01/27/181949 <Electronically signed by Polly Sandy MD> Date Polly Sandy MD Cosigner Signature (If Indicated): Date CC: Cassius Monaco MD VENOUS DUPLEX Observed: 01/27/2018 Status: F Source: [place] IMAG/LIMITED/UNI 6:54 PM [facility] REPOSITORY [facility] Imaging Services [address] [place] [address] Venous Duplex Imag/Limited/Uni MR#: [id number] Acct: [id number] Name: MARGARETTE WISE Rep #: [id number] : 1945 F 72 From: Ty Anderson MD PCP: Cassius Monaco MD, Chi Status: PRE ER Study: Venous Duplex Imag/Limited/Uni Date of Exam: 01/27/18 Exam# [id number] Ordering Dr: Polly Sandy MD STUDY: VENOUS DOPPLER ULTRASOUND - LEFT LOWER EXTREMITY REASON FOR EXAM: Female, 72 years old. LT LOWER LEG REDNESS WARMTH, EDEMA X 2 DAYS NO PAIN TECHNIQUE: Ultrasound evaluation of the deep vein system to include barnard-scale imaging and compression was performed. Barnard-scale imaging and Doppler sonographic evaluation, including duplex spectral analysis and qualitative color flow sonography, was performed. COMPARISON: None. FINDINGS: Common Femoral Vein: Normal compression, spontaneity and augmentation. Normal color Doppler. Common Femoral Vein/Greater Saphenous Junction: Normal compression, spontaneity and augmentation. Normal color Doppler. Deep Femoral Vein: Normal compression, spontaneity and augmentation. Normal color Doppler. Femoral Proximal: Normal compression, spontaneity and augmentation. Normal color Doppler. Femoral Middle: Normal compression, spontaneity and augmentation. Normal color Doppler. Femoral Distal: Normal compression, spontaneity and augmentation. Normal color Doppler. Popliteal Vein: Normal compression, spontaneity and augmentation. Normal color Doppler. Posterior Tibial Vein: Normal compression, spontaneity and augmentation. Normal color Doppler. Peroneal Vein: Normal compression, spontaneity and augmentation. Normal color Doppler. US/Venous Duplex Imag/Limited/Uni IMPRESSION: Normal venous Doppler ultrasound of the lower extremity. Electronically Signed: Ty Anderson MD at 19:35 EDT , Service support , CC: Polly Sandy MD; Cassius Monaco MD Child Support Specialist: Signed OFFICE VISIT REPORT Observed: 01/13/2018 Status: F Source: [place] 1:[address] [address] OFFICE VISIT Date of Service: 12/25/17 MR#: [id number] Acct: [id number] Patient: MARGARETTE WISE Rep #: [id number] : 1945 Provider: Ellis Keating MD Age/Sex: 72/F Location[place] [facility] [place] Status: Signed Intake Intake Visit Reasons: 2 WK BP CK PER DJN Chief Complaint: Routine f/u Allergies piroxicam Allergy (Verified 12/10/17 15:55) Unknown adhesive tape Adverse Reaction (Verified 12/10/17 15:55) Rash Medications Pravastatin [Pravachol] 40 mg PO QHS 01/28/13 [History Confirmed 12/25/17] Potassium Chloride [Klor-Con] 20 meq PO DAILY 03/18/17 [History Confirmed 12/25/17] calcium phosphate 250 mg-vitamin D3 200 unit chewable tablet 2 tab PO BID 05/07/17 [History Confirmed 12/25/17] denosumab 60 mg/mL subcutaneous syringe 60 mg SC [id number] 05/07/17 [History Confirmed 12/25/17] furosemide 40 mg tablet 40 mg PO QDAY #30 tab 06/12/17 [Rx Confirmed 12/25/17] lisinopril 40 mg tablet 40 mg PO QDAY #30 tab 06/12/17 [Rx Confirmed 12/25/17] carvedilol 12.5 mg tablet 12.5 mg PO BID #90 tab 11/09/17 [Rx Confirmed 12/25/17] Nursing Note Patient here for a two week blood pressure check. She was started on Imdur which caused headaches. She stopped medication and feels much better. Blood pressure today was 138/86, pulse 72. She has been keeping track of her blood pressures which have been in the normal range. Per Ozzie Gilliland, patient is to stay on same meds, keep track of blood pressures and if anything changes to let us know. Patient verbalized understanding. 01/13/18 1353 <Electronically signed by Ellis Keating MD> Date Ellis Keating MD [facility] Signature: Date (if applicable) CC: CARDIOLOGY VISIT Observed: 12/10/2017 Status: F Source: [place] REPORT 4:07 PM [facility] REPOSITORY [facility] [address] [place] [address] OFFICE VISIT Date of Service: 12/10/17 MR#: [id number] Acct: [id number] Name: MARGARETTE WISE Rep #: [id number] : 1945 Provider: Ellis Keating MD Age/Sex: 72/F Location: [facility] [place] Status: Signed HPI HPI Chief Complaint: Routine f/u Details: referring physician: Dr. Monaco Mrs. Wise is a very pleasant 72-year-old nondiabetic, nonsmoking female, with no previous cardiac history who was referred to our office for syncope and atrial fibrillation. Approximately 2 weeks prior to our initial visit, while walking to her car with a Pepsi in one hand and her purse and the other hand, the patient had a sudden syncopal episode injuring her right lower extremity causing an abrasion and excessive bleeding and bruising. Patient did not hit her head. patient does not remember anything of the incident until she hit the ground. She did not seek medical attention and then went to her primary care doctor approximately one week later for an unrelated issue. At that time she was found to be in atrial fibrillation and a Holter monitor was ordered on 11/03/13. This demonstrated atrial fibrillation 446 minutes were about 10% of the time. On further history the patient reports that about 3 years ago she had 4 syncopal episodes while taking care of her sick mother. At that time it was similar in that she had no recollection of the events, and actually injured her head when she passed out causing a black eye. It was attributed that time to a psychological issue as she was unable to tell her mother that her mother had been diagnosed with liver cancer. The symptoms abated until this last episode. as part of her cardiac workup she underwent a stress test in November 2013 which was poor exercise capacity and possible anterior ischemia. She then underwent catheterization in November 2013 which demonstrated normal coronary arteries and significant systemic hypertension. The patient was treated with antihypertensive medications and she's had no further symptoms whatsoever. Since October 2014 he Eliquis was discontinued, and she remains on Coreg and baby aspirin as well as lisinopril/HCTZ. She reports her blood pressure was initially much better, and she has no further lower extremity edema. Her shortness of breath is completely resolved. She did not undergo pulmonary function testing. She did however go to the emergency room in January 2016 with vertigo which was corrected with Nylan Barany technique. Since that time she is doing very well and denies any chest pain or angina. She is back to working and standing on her feet most of the day. She reports that her cholesterol was obtained by her PCP about a month ago. She underwent knee surgery, first and June 2015 followed by April 2016. Patient feels much better and is able to ambulate. She occasionally felt what she describes as substernal heaviness as if an elephant is sitting on her chest with exertion, and relieved with rest. The water pill component of her lisinopril was recently discontinued by her PCP out of concern for chronic renal insufficiency. Lipids are pending per her PCP. Patient does not take her blood pressure when her chest pain occurs. As part of her cardiac workup she underwent a dobutamine echocardiogram on 06/03/17 which was abnormal for global LV dilatation and hypertensive blood pressure response to dobutamine. She underwent a diagnostic left and right heart coronary angiogram on 06/12/17 which demonstrated moderate pulmonary hypertension, nonobstructive coronary disease, and mild global LV dysfunction with an EF around 45-50%. She is now here in follow-up. Patient is doing fairly well except for occasionally some dyspnea on exertion. She takes her blood pressure at home which she says ranges in the 130s-140s systolic. She denies any anginal symptoms In office today her blood pressure is 170/80, pulse is 64 and regular. Her physical exam is as below. Lipids are pending Intake Vital Signs12/10/17 Height 4 ft 9 in 12/10/17 Weight: 165 lb 12/10/17 Body Mass Index (BMI) 35.6 12/10/17 Blood Pressure 170/80 Intake Visit Reasons: 6 M Radio Electronics Officer Required: No Is patient in pain?: No Allergies piroxicam Allergy (Verified 12/10/17 15:55) Unknown adhesive tape Adverse Reaction (Verified 12/10/17 15:55) Rash Medications Pravastatin [Pravachol] 40 mg PO QHS 01/28/13 [History Confirmed 12/08/17] Potassium Chloride [Klor-Con] 20 meq PO DAILY 03/18/17 [History Confirmed 12/08/17] calcium phosphate 250 mg-vitamin D3 200 unit chewable tablet 2 tab PO BID 05/07/17 [History Confirmed 12/08/17] denosumab 60 mg/mL subcutaneous syringe 60 mg SC [id number] 05/07/17 [History Confirmed 12/08/17] furosemide 40 mg tablet 40 mg PO QDAY #30 tab 06/12/17 [Rx Confirmed 12/08/17] lisinopril 40 mg tablet 40 mg PO QDAY #30 tab 06/12/17 [Rx Confirmed 12/08/17] carvedilol 12.5 mg tablet 12.5 mg PO BID #90 tab 11/09/17 [Rx Confirmed 12/08/17] isosorbide mononitrate ER 30 mg tablet,extended release 24 hr 30 mg PO DAILY #30 tab 12/10/17 [Rx Confirmed 12/10/17] [facility] Medical History Costochondritis (Resolved) HTN (hypertension) (Chronic) Mixed hyperlipidemia (Chronic) Paroxysmal atrial fibrillation (Chronic) Syncope and collapse (Chronic) Bradycardia (Chronic) GERD (gastroesophageal reflux disease) (Chronic) Vertigo (Chronic) History of carpal tunnel release (Inactive) bilateral feet surgery (Inactive) Surgical History History of left heart catheterization (Chronic 06/12/17) History of knee replacement, total (Chronic) History of hysterectomy (Resolved) History of tonsillectomy (Resolved) H/O: hysterectomy (Inactive) History of tonsillectomy (Inactive) Right TKA (Inactive) Family History Mother 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 Father , from [place] at age 69 CAD (coronary artery disease) Myocardial infarction, Onset Age: 69 Brother 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 Heart disease Myocardial infarction Pacemaker Social History Smoking Status: Never smoker alcohol intake: current substance use type: does not use what type of physical activity do you participate in: none ROS Const Const: Negative for fatigue, weakness, body ache, fever(s), headache(s), chills, frequent falls, night sweats, daytime sleepiness, difficulty sleeping, excessive sweating, weight gain, weight loss, increased appetite, poor appetite, anorexia or other Eyes Eyes: Negative for blind spots, loss of peripheral vision, transient loss of vision, blurry vision, change in vision, double vision, floaters, tunnel vision or other ENT ENT: Negative for headache(s), dizziness, hearing loss, tinnitus, Nosebleed/epistaxis, balance problems, post nasal drip, lip swelling, tongue swelling, bleeding gums, hoarseness, neck pain, dry mouth or other Cardio Chest Pain: No Palpitations: No Edema: None Muscle aches with walking: None Resp Respiratory: Negative for SOB with activity, SOB at rest, SOB orthopnea\SOB lying down, Cough, Coughing up blood/hemoptysis, chest congestion, pain on inspiration, snoring, stridor, wheezing, crackles, paroxysmal nocturnal dyspnea or other GI GI: Negative nausea, vomiting, heartburn, constipation, belching, bloating, cramping, vomiting blood/hematemesis, bright, red blood in stools, black,tarry stools, loose stools, Difficulty Swallowing or other : Negative for hematuria, frequent nighttime urination/ nocturia, erectile dysfunction or abnormal vaginal bleeding Musc Musc: Negative for balance problems, muscle aches/ myalgia, muscle weakness or joint pain Skin Skin: Negative redness, non-healing lesions, rash, unusual bruising, skin ulcer, wounds, jaundice or other Neuro Neuro: Negative for weakness, headache(s), frequent falls, blurry vision, double vision, dizziness, lightheadedness, near syncope, syncope, orthostatic symptoms, confusion, memory loss, restless legs, vertigo, seizures, lack of coordination or other Osvaldo Hematologic/Lymphatic: Negative for easy bleeding, easy bruising, enlarged lymph nodes or other Endo Endo: Negative for fatigue, excessive sweating, cold intolerance, heat intolerance, flushing, increased thirst/drinking, increased hunger, hair loss, hair growth or other Psych Psych: Negative for anxiety, depression, thoughts of harming anyone, thoughts of harming yourself, visual hallucinations, panic attacks or audible hallucinations Allergy Allergy/Immunology: Negative for lip swelling, Negative for tongue swelling, Negative for rash, Negative for throat swelling, Negative for hives Cardiology Exam Const Appearance: cooperative, healthy appearing and no acute distress Nutritional Appearance: well nourished Orientation: alert, oriented x3 and oriented to person Head Head: normal to inspection, atraumatic and normocephalic Nose: external nose normal Face and Sinus: face symmetric Mouth: oral mucosae normal Eyes General: appearance normal, both eyes and all related structures Eyelids: eyelids normal Conjunctivae: conjunctivae normal Pupils: PERRL and normal by confrontation EOM: EOM intact bilaterally Neck Neck: normal visual inspection and full ROM Carotids: normal carotid upstroke Chest Chest inspection: normal inspection of the chest Auscultation: Bilateral: Clear to Auscultation Cardio Palpation: normal PMI Rate: regular rate Rhythm: regular rhythm Heart sounds: S1 normal, S2 normal and prominent P2 GI GI: normal to inspection, no hepatosplenomegaly and bowel sounds present Neuro General: alert, oriented x3, awake, CN's II-XI intact bilaterally and moves all extremities Skin Skin: no rashes or lesions noted Extremities Pulses: Normal: Right Femoral Pulse, Left Femoral Pulse, Right Dorsalis Pedis Pulse, Left Dorsalis Pedis Pulse, Right Posterior Tibial Pulse, Left Posterior Tibial Pulse, Right Radial Pulse, Left Radial Pulse Lower Extremity Edema: None: Bilateral Psych Psychological: normal affect Assessment AND Plan 1. HTN (hypertension) I10 Plan 1. 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: The patient continues to struggle with hypertension despite polypharmacy with Coreg, Lasix, and max dose lisinopril. I recommended that she take her blood pressure twice a day for the next 2 weeks, and bring us the recordings of that. Recommend also that she start on Imdur 30 mg p.o. daily for both systemic and pulmonary hypertension. She will return in 2 weeks time for a blood pressure check. If her blood pressure is optimized will continue present management. I do not believe she requires repeat echocardiogram at this time. 2. Mixed hyperlipidemia E78.2 Plan 2. Hyperlipidemia: We will obtain a repeat lipid profile. Continue Pravachol for now. Her LDL should be less than 70. 3. Return office in 6 months. This note was generated using a voice recognition system and there may be incorrect words, spelling or punctuation that were not noted when reviewing the office note prior to saving. Plan Detail Other Orders Orders: Other Medications New: Discontinued: aspirin (Adult Low Dose Aspirin) Discontinued Reason: Order C81 mg PO QDAY Altagracia mayo Follow Up +6M (Keating) +2Weeks (BP CHECK) Coding Level of Care Code Off vis,est,level 3 Diagnoses HTN (hypertension) I10 Mixed hyperlipidemia E78.2 Coding Level of Care Code Off vis,est,level 3 Diagnoses HTN (hypertension) I10 Mixed hyperlipidemia E78.2 12/10/17 1607 <Electronically signed by Ellis Keating MD> Date Ellis Keating MD Cosigner Signature: Date (if applicable) CC: Cassius Monaco MD CBC W/DIFF, AUTOMATED Collected: 11/25/2017 Status: F Source: [place] 2:18 PM [facility] REPOSITORY TYPE CODE TESTS RESULT OUT OF RANGE REFERENCE UNITS LAB L100.1000 4.4-11.0 K/mm3 Normal WBC 5.6 LAB L100.1200 4.2-5.4 M/mm3 Low RBC 3.95 LAB L100.1300 12.0-15.0 g/dl Normal HGB 12.1 LAB L100.1400 37-47 % Low HCT 36.4 LAB L100.1500 81-99 fL Normal MCV 92.2 LAB L100.1600 27.0-32.0 pg Normal MCH 30.6 LAB L100.1700 32-36 g/gl Normal MCHC 33.2 LAB L100.1810 11.6-14.6 % Normal RDW CV 12.8 LAB L100.1820 35.1-43.9 fl Normal RDW SD 42.2 LAB L100.1900 150-450 K/mm3 Normal PLT 261 LAB L100.2000 6.2-12.0 fl Normal MPV 9.0 LAB L100.2100 47-70 % Normal NEUT% 69.3 LAB L100.2200 19-41 % Low LY% 16.9 LAB L100.2300 0-10 % Normal MONO% 8.4 LAB L100.2400 0-5 % Normal EO% 5.0 LAB L100.2500 0-1 % Normal BASO% 0.2 LAB L100.2550 0.0-0.9 % Normal IM GRAN % 0.200 Result Comment: IG% - Immature Granulocytes (promyelocytes, myelocytes and metamyelocytes) > 1% indicates that a LEFT SHIFT is Present. LAB L100.2620 2.0-7.7 X10 3/uL Normal Absolute Neut 3.9 LAB L100.2720 0.83-4.51 X10 3/ul Normal Absolute Lymph 0.95 Performed By: #### L100.0100 #### [facility] [address], [address] VITAMIN D,25 HYDROXY Collected: 11/25/2017 Status: F Source: [place] 2:18 PM [facility] REPOSITORY TYPE CODE TESTS RESULT OUT OF REFERENCE UNITS RANGE LAB L506.1000 29.95-100.01 ng/mL Low Vitamin D 23.4 25-OH Result Comment: Vitamin D 25(OH) Status Range Deficiency <20 ng/mL (50nmol/L) Insuffciency 20 - 30 ng/mL (50 - 75 nmol/L) Sufficiency 30 - 100 ng/mL (75 - 250 nmol/L) Toxicity >100 ng/mL (>250 nmol/L) Performed By: #### L506.1000 #### [facility] [place], [address] COMPREHENSIVE METABOLIC Collected: 11/25/2017 Status: F Source: [place] [facility] 2:18 PM [facility] REPOSITORY TYPE CODE TESTS RESULT OUT OF RANGE REFERENCE UNITS LAB L501.0100 74-106 mg/dL Normal GLU 83 Result Comment: Please note revised GLUCOSE reference range effective 2017. LAB L501.1000 7-18 mg/dL Normal BUN 14 LAB L501.1100 0.55-1.02 mg/dL Normal CREAT,SERUM 0.97 Result Comment: The validity of the calculated GFR AND GFRAA in patients over 70 years has not been determined. Clinical correlation is essential. LAB L501.1110 >60 mL/min Normal EST GFR 60 Result Comment: Non- GFR Calc LAB L501.1115 >60 mL/min Normal EST GFR - AA 73 Result Comment: GFR Calc LAB L501.1300 10-20 RATIO Normal BUN/CRE 14.5 LAB L501.1500 6.4-8.2 g/dL T Normal PROT 7.4 LAB L501.1800 3.2-5.0 g/dL Normal ALB 3.9 LAB L501.1950 2.2-4.2 g/dL Normal GLOB 3.5 LAB L501.2000 0.9-2.4 RATIO Normal A/G 1.1 LAB L501.2200 8.5-10.1 mg/dL CA Normal 8.8 LAB L501.4100 15-37 U/L Normal AST 24 LAB L501.4305 45-117 U/L Normal ALK P 83 LAB L501.4405 13-56 U/L Normal ALT 24 LAB L501.4600 0.20-1.00 mg/dL T Normal BILI 0.50 LAB L501.5300 136-145 mmol/L NA Normal 138 LAB L501.5600 3.5-5.1 mmol/L K Normal 3.9 LAB L501.5900 98-107 mmol/L CL Normal 101 LAB L501.6100 21.0-32.0 mmol/L Normal CO2 24.0 LAB L501.6200 5-15 Normal GAP 13 Performed By: #### L500.4050, L501.9520 #### [facility] [address] [place], [place], [address] THYROID STIM HORMONE Collected: 11/25/2017 Status: F Source: [place] (TSH) 2:18 PM [facility] REPOSITORY TYPE CODE TESTS RESULT OUT OF RANGE REFERENCE UNITS LAB L501.9520 0.358-3.74 uIU/mL Normal TSH 1.14 Performed By: #### L500.4050, L501.9520 #### [facility] [address] [place], [address] HEPATITIS C ANTIBODIES Collected: 11/25/2017 Status: F Source: [place] 2:18 PM [facility] REPOSITORY TYPE CODE TESTS RESULT OUT OF RANGE REFERENCE UNITS LAB L3100.0650 0.0-0.9 s/co ratio Normal HEP C AB 0.1 Result Comment: Negative: < 0.8 Indeterminate: 0.8 - 0.9 Positive: > 0.9 The CDC recommends that a positive HCV antibody result be followed up with a HCV Nucleic Acid Amplification test (799701). Performed at: - [facility] [id number] Nitrator Operator: Mickey Betancourt PhD, Phone: [phone] Performed By: #### L3100.0625 #### [facility] (refer to report for specific site) refer to report for address and phone number OFFICE VISIT REPORT Observed: 06/30/2017 Status: F Source: [place] 4:16 PM [facility] REPOSITORY [address] [place] [address] OFFICE VISIT Date of Service: 06/29/17 MR#: [id number] Acct: [id number] Patient: MARGARETTE WISE Rep #: [id number] : 1945 Provider: Ellis Keating MD Age/Sex: 71/F [place] [facility] [place] Status: Signed Intake Vital Signs06/29/17 Blood Pressure 144/90 06/29/17 Blood Pressure Location Lt brachial Intake Visit Reasons: 2 wk bp ck per msg from PK Chief Complaint: Routine f/u Radio Electronics Officer Required: No Accompanied by: None Is patient in pain?: No Allergies piroxicam Allergy (Verified 06/12/17 07:24) Unknown adhesive tape Adverse Reaction (Verified 06/12/17 07:24) Rash Medications Pravastatin [Pravachol] 40 mg PO QHS 01/28/13 [History Confirmed 06/11/17] Carvedilol [Coreg] 12.5 mg PO BID 03/18/17 [History Confirmed 06/11/17] Meclizine HCl 25 mg PO Q6H PRN PRN 03/18/17 [History Confirmed 06/11/17] Ondansetron HCl [Zofran] 4 mg PO Q6H PRN PRN 03/18/17 [History Confirmed 06/11/17] Potassium Chloride [Klor-Con] 20 meq PO DAILY 03/18/17 [History Confirmed 06/11/17] calcium phosphate 250 mg-vitamin D3 200 unit chewable tablet 2 tab PO BID 05/07/17 [History Confirmed 06/11/17] denosumab 60 mg/mL subcutaneous syringe 60 mg SC [id number] 05/07/17 [History Confirmed 06/11/17] aspirin 81 mg tablet,delayed release 81 mg PO QDAY tab 06/05/17 [History Confirmed 06/11/17] clopidogrel 75 mg tablet 75 mg PO QDAY #30 tab 06/05/17 [Rx Confirmed 06/11/17] furosemide 40 mg tablet 40 mg PO QDAY #30 tab 06/12/17 [Rx] lisinopril 40 mg tablet 40 mg PO QDAY #30 tab 06/12/17 [Rx] Nursing Note Pt is here today for a bp check due to change in medication. On 06/12/17 Dr. Keating instructed pt to stop lisinopril-HCTZ, start lisinopril 40 mg po daily and lasix 40 mg po daily. Pt denies SOB, chest discomfort, dizziness, no lower extremity edema present. BP 144/90, 60 bpm, RR 18. Ozzie Roof ELECTRICAL AND INSTRUMENTATION MANAGER reviewed vitals and pt is to 1.) monitor bp and call in readings in 2 weeks if bp remains elevated we may consider starting Norvasc, 2.) continue current medication therapy. 06/30/17 1616 <Electronically signed by Ozzie FRENCH> Date Ozzie FRENCH Cosigner Signature: Date (if applicable) CC: Shahla Coelho BLOOD GASES BY CPS Collected: 06/12/2017 Status: F Source: [place] 9:12 AM [facility] REPOSITORY TYPE CODE TESTS RESULT OUT OF RANGE REFERENCE UNITS LAB L9000.9990 Normal BLD GAS ART TYPE LAB L9001.1110 7.35-7.45 Normal pH - 7.44 I-STAT LAB L9001.1210 35-45 mmHg Normal pCO2 - 37.0 ISTAT LAB L9001.1310 75-100 mmHG Normal PO2 85 I-STAT LAB L9001.2300 22-26 mmol/L Normal HCO3 25.0 ISTAT LAB L9001.2400 -2 to +2 mmol/L Normal BE ISTAT 1 LAB L9001.2415 mmol/L Normal TOTAL CO2 26 ISTAT LAB L9001.2425 95-99 % Normal SO2 ISTAT 97 Performed By: #### L9000.0800 #### [facility] Point of Care [address] [place] [address] VENOUS BLOOD GAS Collected: 06/12/2017 Status: F Source: [place] 9:09 AM [facility] REPOSITORY TYPE CODE TESTS RESULT OUT OF RANGE REFERENCE UNITS LAB L9000.9990 Normal BLD GAS AUBREY TYPE LAB L9002.1110 7.32-7.42 Normal VBGpH - 7.42 I-STAT LAB L9002.1212 41-51 mmHg Low VBG pCO2 40.1 - ISTA LAB L9002.1310 25-40 mmHg High VBG PO2 50 I-STAT LAB L9002.2300 22-26 mmol/L Normal VBG HCO3 26 ISTAT LAB L9002.2400 -1.0-3.5 mmol/L Normal VBG BE 1 ISTAT LAB L9002.2410 50-70 % High VBG SO2 86 ISTAT LAB L9002.2415 23-33 mmol/L Normal VBG O2 CT 27 ISTAT Performed By: #### L9000.0810 #### [facility] Point of Care [address] [place] [address] VENOUS BLOOD GAS Collected: 06/12/2017 Status: F Source: [place] 9:05 AM [facility] REPOSITORY TYPE CODE TESTS RESULT OUT OF RANGE REFERENCE UNITS LAB L9000.9990 Normal BLD GAS AUBREY TYPE LAB L9002.1110 7.32-7.42 Normal VBGpH - 7.40 I-STAT LAB L9002.1212 41-51 mmHg Low VBG pCO2 40.8 - ISTA LAB L9002.1310 25-40 mmHg High VBG PO2 45 I-STAT LAB L9002.2300 22-26 mmol/L Normal VBG HCO3 25 ISTAT LAB L9002.2400 -1.0-3.5 mmol/L Normal VBG BE 0 ISTAT LAB L9002.2410 50-70 % High VBG SO2 81 ISTAT LAB L9002.2415 23-33 mmol/L Normal VBG O2 CT 26 ISTAT Performed By: #### L9000.0810 #### [facility] [address] [place] [address] CARDIOLOGY VISIT Observed: 06/12/2017 Status: F Source: [place] REPORT 8:06 AM [facility] REPOSITORY [facility] [address] [place] [address] OFFICE VISIT Date of Service: 05/07/17 MR#: [id number] Acct: [id number] Name: MARGARETTE WISE Rep #: [id number] : 1945 Provider: Ellis Keating MD Age/Sex: 71/F Location[place] [facility] [place] Status: Signed with Addenda ADDENDUM by Claribel Kuo on 06/12/17 at 0805 Addendum entered and electronically signed by DELMY Doe 06/12/17 08:05: I have re-examined the patient. There are no clinical changes since the date of exam. She continues to complain of chest heaviness that is rated at a 5-7/10 with minimal activity that does resolve when she stops. This has worsened over the last month since her OV. Assessment AND Plan Plan Detail Follow Up 6 Months (Keating) 06/12/17 0806 <Electronically signed by Claribel BROCK> Date Claribel Kuo cc: * Signed HPI 6 M FU: Chief Complaint: Routine f/u Details: referring physician: Dr. Monaco Mrs. Wise is a very pleasant 71-year-old nondiabetic, nonsmoking female, with no previous cardiac history who was referred to our office for syncope and atrial fibrillation. Approximately 2 weeks prior to our initial visit, while walking to her car with a Pepsi in one hand and her purse and the other hand, the patient had a sudden syncopal episode injuring her right lower extremity causing an abrasion and excessive bleeding and bruising. Patient did not hit her head. patient does not remember anything of the incident until she hit the ground. She did not seek medical attention and then went to her primary care doctor approximately one week later for an unrelated issue. At that time she was found to be in atrial fibrillation and a Holter monitor was ordered on 11/03/13. This demonstrated atrial fibrillation 446 minutes were about 10% of the time. On further history the patient reports that about 3 years ago she had 4 syncopal episodes while taking care of her sick mother. At that time it was similar in that she had no recollection of the events, and actually injured her head when she passed out causing a black eye. It was attributed that time to a psychological issue as she was unable to tell her mother that her mother had been diagnosed with liver cancer. The symptoms abated until this last episode. as part of her cardiac workup she underwent a stress test in November 2013 which was poor exercise capacity and possible anterior ischemia. She then underwent catheterization in November 2013 which demonstrated normal coronary arteries and significant systemic hypertension. The patient was treated with antihypertensive medications and she's had no further symptoms whatsoever. Since October 2014 he Eliquis was discontinued, and she remains on Coreg and baby aspirin as well as lisinopril/HCTZ. She reports her blood pressure was initially much better, and she has no further lower extremity edema. Her shortness of breath is completely resolved. She did not undergo pulmonary function testing. She did however go to the emergency room in January 2016 with vertigo which was corrected with Nylan Barany technique. Since that time she is doing very well and denies any chest pain or angina. She is back to working and standing on her feet most of the day. She reports that her cholesterol was obtained by her PCP about a month ago. She underwent knee surgery, first and June 2015 followed by April 2016. Patient feels much better and is able to ambulate. She occasionally gets what she describes as substernal heaviness as if an elephant is sitting on her chest with exertion, and relieved with rest. The water pill component of her lisinopril was recently discontinued by her PCP out of concern for chronic renal insufficiency. Lipids are pending per her PCP. Patient does not take her blood pressure when her chest pain occurs. In office today her blood pressure is 164/80, pulse is 60 and regular. Her physical exam is as below. Intake Vital Signs05/07/17 Height 4 ft 9 in 05/07/17 Weight: 152 lb 05/07/17 Body Mass Index (BMI) 32.8 05/07/17 Blood Pressure 164/80 05/07/17 Respiratory Rate 18 05/07/17 Pulse Rate 60 Intake Visit Reasons: 6 M FU Allergies piroxicam Allergy (Verified 05/07/17 13:44) Unknown adhesive tape Adverse Reaction (Verified 05/07/17 13:44) Rash Medications Pravastatin [Pravachol] 40 mg PO QHS 01/28/13 [History Confirmed 04/20/17] Lisinopril [Zestril] 20 mg PO QHS 04/02/16 [History Confirmed 05/07/17] Carvedilol [Coreg] 12.5 mg PO BID 03/18/17 [History Confirmed 05/07/17] Meclizine HCl 25 mg PO Q6H PRN PRN 03/18/17 [History Confirmed 03/18/17] Ondansetron HCl [Zofran] 4 mg PO Q6H PRN PRN 03/18/17 [History Confirmed 03/18/17] Potassium Chloride [Klor-Con] 20 meq PO DAILY 03/18/17 [History Confirmed 03/18/17] calcium phosphate 250 mg-vitamin D3 200 unit chewable tablet 2 tab PO BID 05/07/17 [History Confirmed 05/07/17] denosumab 60 mg/mL subcutaneous syringe 60 mg SC [id number] 05/07/17 [History Confirmed 05/07/17] PFSH Family History Mother 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 Father , from [place] at age 69 CAD (coronary artery disease) Myocardial infarction, Onset Age: 69 Brother 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 Heart disease Myocardial infarction Pacemaker Social History Smoking Status: Never smoker alcohol intake: current substance use type: does not use what type of physical activity do you participate in: none ROS Const Const: Negative for fatigue, difficulty sleeping, excessive sweating, weakness, frequent falls or headache(s) Eyes Eyes: Negative for loss of peripheral vision, transient loss of vision, blurry vision or double vision ENT ENT: Negative for headache(s), Positive for dizziness (Treated for vertigo), Negative for Nosebleed/epistaxis, Negative for balance problems Cardio Chest Pain: Yes Character: dull, tightness Exacerbation: activity, rest Edema: None Muscle aches with walking: None Resp Respiratory: Negative for SOB with activity, SOB at rest, SOB orthopnea\SOB lying down or paroxysmal nocturnal dyspnea GI GI: Negative nausea or heartburn : Negative for hematuria Musc Musc: Negative for muscle aches/ myalgia, muscle weakness, joint pain or balance problems Skin Skin: Negative non-healing lesions, unusual bruising or rash Neuro Neuro: Negative for weakness, Negative for frequent falls, Negative for blurry vision, Positive for lightheadedness, Negative for orthostatic symptoms, Negative for double vision, Negative for headache(s), Positive for dizziness (Treated for vertigo) Osvaldo Hematologic/Lymphatic: Negative for easy bruising Endo Endo: Negative for fatigue, excessive sweating or increased thirst/drinking Psych Psych: Negative for anxiety or depression Allergy Allergy/Immunology: Negative for hives, Negative for rash Cardiology Exam Const Appearance: cooperative, healthy appearing and no acute distress Nutritional Appearance: well nourished Orientation: alert, oriented x3 and oriented to person Head Head: normal to inspection, atraumatic and normocephalic Nose: external nose normal Face and Sinus: face symmetric Mouth: oral mucosae normal Eyes General: appearance normal, both eyes and all related structures Eyelids: eyelids normal Conjunctivae: conjunctivae normal Pupils: PERRL and normal by confrontation EOM: EOM intact bilaterally Neck Neck: normal visual inspection and full ROM Carotids: normal carotid upstroke Chest Chest inspection: normal inspection of the chest Auscultation: Bilateral: Clear to Auscultation Cardio Palpation: normal PMI Rate: regular rate Rhythm: regular rhythm Heart sounds: S1 normal and S2 normal GI GI: normal to inspection, no hepatosplenomegaly and bowel sounds present Neuro General: alert, oriented x3, awake, CN's II-XI intact bilaterally and moves all extremities Skin Skin: no rashes or lesions noted Extremities Pulses: Normal: Right Femoral Pulse, Left Femoral Pulse, Right Dorsalis Pedis Pulse, Left Dorsalis Pedis Pulse, Right Posterior Tibial Pulse, Left Posterior Tibial Pulse, Right Radial Pulse, Left Radial Pulse Lower Extremity Edema: None: Bilateral Psych Psychological: normal affect Assessment AND Plan Plan 1. Substernal chest pain: Patient had a catheterization in 2013 which showed normal coronary arteries, however it is possible the patient may have had progression of coronary artery disease since that time given her risk factors. Recently her hydrochlorothiazide was discontinued out of concern for chronic renal insufficiency. Patient comes on a regular basis with systolic pressures in the 160s. She describes her chest heaviness is exertional and while she is at work moving around boxes. In order to determine if the patient has hypertensive blood pressure response to exercise, I recommend that she undergo a modified Basilio treadmill echocardiogram. If this is grossly abnormal for ischemia, I have a low threshold for repeat catheterization. The patient has no ischemia but a hypertensive blood pressure response to exercise, would recommend initiating amlodipine 5 mg p.o. daily and titrating up from there.In the meantime she will continue her Coreg, lisinopril. 2. Hyperlipidemia: We will try to obtain the patient's cholesterol from Dr. Decker's office. In the meantime she will continue her pravastatin. 3. Return office in 6 months. This note was generated using a voice recognition system and there may be incorrect words, spelling or punctuation that were not noted when reviewing the office note prior to saving. Orders Orders: Medications New: Discontinued: lisinopril-hydrochlorothiazide 20-12.5 mg Discontinued Reas1 tab PO .QD Marry Maldonado on: Order Changed Plan Detail Follow Up 6 Months (Rishabh) Coding Level of Care Code Off vis,est,level 3 Coding Level of Care Code Off vis,est,level 3 05/07/17 1409 <Electronically signed by Ellis Keating MD> Date Ellis Keating MD Cosigner Signature: Date (if applicable) CC: CBC W/DIFF, AUTOMATED Collected: 06/05/2017 Status: F Source: [place] 1:53 PM [facility] REPOSITORY TYPE CODE TESTS RESULT OUT OF RANGE REFERENCE UNITS LAB L100.1000 4.4-11.0 K/mm3 Normal WBC 5.1 LAB L100.1200 4.2-5.4 M/mm3 Low RBC 3.91 LAB L100.1300 12.0-15.0 g/dl Low HGB 11.9 LAB L100.1400 37-47 % Low HCT 36.7 LAB L100.1500 81-99 fL Normal MCV 93.9 LAB L100.1600 27.0-32.0 pg Normal MCH 30.4 LAB L100.1700 32-36 g/gl Normal MCHC 32.4 LAB L100.1810 11.6-14.6 % Normal RDW CV 13.6 LAB L100.1820 35.1-43.9 fl High RDW SD 46.8 LAB L100.1900 150-450 K/mm3 Normal PLT 210 LAB L100.2000 6.2-12.0 fl Normal MPV 8.3 LAB L100.2100 47-70 % High NEUT% 73.1 LAB L100.2200 19-41 % Low LY% 14.2 LAB L100.2300 0-10 % High MONO% 11.1 LAB L100.2400 0-5 % Normal EO% 1.4 LAB L100.2500 0-1 % Normal BASO% 0.0 LAB L100.2550 0.0-0.9 % Normal IM GRAN % 0.200 Result Comment: IG% - Immature Granulocytes (promyelocytes, myelocytes and metamyelocytes) > 1% indicates that a LEFT SHIFT is Present. LAB L100.2620 2.0-7.7 X10 3/uL Normal Absolute Neut 3.8 LAB L100.2720 0.83-4.51 X10 3/ul Low Absolute Lymph 0.73 Performed By: #### L100.0100, L500.2500 #### [facility] [address] [place], [address] BASIC METABOLIC Collected: 06/05/2017 Status: F Source: [place] PROFILE (BMP) 1:53 PM [facility] REPOSITORY TYPE CODE TESTS RESULT OUT OF RANGE REFERENCE UNITS LAB L501.0100 74-106 mg/dL Normal GLU 80 Result Comment: Please note revised GLUCOSE reference range effective 2017. LAB L501.1000 7-18 mg/dL High BUN 19 LAB L501.1100 0.55-1.02 mg/dL Normal CREAT,SERUM 0.76 Result Comment: The validity of the calculated GFR AND GFRAA in patients over 70 years has not been determined. Clinical correlation is essential. LAB L501.1110 >60 mL/min Normal EST GFR 79 Result Comment: Non- GFR Calc LAB L501.1115 >60 mL/min Normal EST GFR - AA 96 Result Comment: GFR Calc LAB L501.1300 10-20 RATIO High BUN/CRE 24.9 LAB L501.2200 8.5-10.1 mg/dL CA Normal 8.6 LAB L501.5300 136-145 mmol/L Low NA 135 LAB L501.5600 3.5-5.1 mmol/L K Normal 4.2 LAB L501.5900 98-107 mmol/L CL Normal 102 LAB L501.6100 21.0-32.0 mmol/L Normal CO2 25.0 LAB L501.6200 5-15 Normal GAP 8 Performed By: #### L100.0100, L500.2500 #### [facility] [address], [address] PROTHROMBIN TIME W/INR Collected: 06/05/2017 Status: F Source: [place] 1:53 PM [facility] REPOSITORY TYPE CODE TESTS RESULT OUT OF RANGE REFERENCE UNITS LAB L300.4150 11.7-14.9 SECONDS Normal PROTIME 13.3 LAB L300.4200 Normal INR 1.0 Performed By: #### L300.3900, L300.4310 #### [facility] [address] [place], [address] PARTIAL THROMBOPLAST Collected: 06/05/2017 Status: F Source: [place] TIME 1:53 PM [facility] REPOSITORY TYPE CODE TESTS RESULT OUT OF RANGE REFERENCE UNITS LAB L300.4310 24.1-36.2 Seconds Normal PTT 30.7 Performed By: #### L300.3900, L300.4310 #### [facility] [address], [address] CHEST PA AND LATERAL Observed: 06/05/2017 Status: F Source: [place] 1:28 PM [facility] REPOSITORY [facility] Imaging Services [address] [place] [address] Chest PA and Lateral MR#: [id number] Acct: [id number] Name: MARGARETTE WISE Rep #: [id number] : 1945 F 71 From: Sheryl Cruz MD PCP: Carlos Enrique JULES,Cassius Chi Status: REG CLI Study: Chest PA and Lateral Date of Exam: 06/05/17 Exam# [id number] Ordering Dr: Ellis Keating MD STUDY: X-RAY CHEST REASON FOR EXAM: Female, 71 years old. Shortness of breath, chest pain and intermittent numbness and tingling in the hands and fingers. TECHNIQUE: 2 views COMPARISON: Prior chest radiograph of June 29, 2016 FINDINGS: The lung flanagan are expanded without new consolidation or focal atelectasis. Stable chronic bibasilar changes. The appearance of a dense nodule over the left upper lobe appears to be callus related to a prior fracture of the left sixth rib. Stable cardiac size. Normal mediastinum and derek. Normal visualized pulmonary arteries. There is atherosclerotic calcification of the aortic arch with tortuosity. There is demineralization of the osseous structures. Severe compression deformity of the upper thoracic spine, probably T6, which is more compressed and now more sclerotic than on the prior exam. Severe compression deformity of the lower thoracic spine, probably T10, now status post kyphoplasty. There is no demonstrated abnormality of the visualized soft tissue structures of the upper abdomen. RAD/Chest PA and Lateral IMPRESSION: No acute cardiopulmonary findings or changes. Negative for new major consolidation, focal atelectasis or a substantial pleural effusion. Stable cardiac size. Atherosclerosis. Callous collar of a old fracture of the posterior left sixth rib projects over the left upper lobe. Incidental thoracic spine findings as stated above. Electronically Signed: Sheryl Cruz MD at 18:45 EST , Service support , CC: Ellis Keating MD; Cassius Monaco MD Child Support Specialist: Signed STRESS TEST ECHO W/O Observed: 06/03/2017 Status: F Source: [place] CONTRAST 3:57 PM [facility] REPOSITORY [facility] Cardiovascular Services [address] [place] [address] Stress Test Echo W/Contrast MR#: [id number] Acct: [id number] Name: MARGARETTE WISE Rep #: [id number] : 1945 71 From: Ellis Keating MD Primary Care: Carlos Enrique JULES,Cassius Amaro Status: REG CLI Ordering Dr: Ellis Keating MD Sex: F C Reason For Study: CHEST PAIN Stress Results Protocol: Dobutamine Maximum Predicted HR: 149 bpm Target HR: 127 bpm% Maximum Predicted HR: 87 % DurationHeart Rate Stage (mm:ss) (bpm) BPDos e BASELINE 69 187/98 STAGE 1 3:00 67 168/9210.00 STAGE 2 5:00 11 2 194/9520.00 STAGE 3 3:34 12 9 184/7330.00 BASELINE 68 184/92 Stress Duration: 11:34 mm:ss Maximum Stress HR: 129 bpm Baseline Echocardiogram Findings The estimated ejection fraction is 45-50 %. Stress Echo Wall motion Data Resting WMIntermediate WMStress WM Resting Wall Motion Wall Motion Stress Mild global LV dysfunction. LV dilatation at peak infusion. EKG Data Normal intervals are noted. The patient was titrated from 10 mcg to a maximun of 30 mcg of dobutamine during the stress. The maximum heart rate attained was 136 beats per minute. This was 91% of maximum predicted heart rate. During dobutamine infusion, there were no ST or T wave changes noted to suggest ischemia. No clinical angina was noted. Interpretation Summary Total Definity used was 1 ml per protocol during procedure Mild global LV dysfunction. LV dilatation at peak infusion. The patient was titrated from 10 mcg to a maximun of 30 mcg of dobutamine during the stress. Abnormal, adequate, dobutamine echocardiogram. Positive for ischemia by echocardiographic criteria. The patient appeared to develop global LV dilatation at peak infusion. Rare PVCs noted. Hypertensive blood pressure response to dobutamine. Previous to the dobutamine immediately prior to conversion to dobutamine the patient attempted a modified Basilio treadmill echocardiogram however was unable to go any further than around 6 minutes 31 seconds before she became profoundly fatigued, short of breath and wheezy. Poor echo windows requiring Definity and enhancement agent. Baseline global LV dysfunction with EF around 45%. Final LVEF of 55%. Patient tolerated procedure well no complications. Ordering Physician: Ellis Keating Referring Physician: Ellis Keating Performed By: Keny Truong RT 06/03/17 1556 Date Ellis Keating MD CC: Ellis Keating MD; Cassius Monaco MD Date Dictated: 06/03/17 1357 Date Transcribed: 06/03/17 290 Child Support Specialist: Signed ALLERGIES ALLERGIES DATE TYPE / CODE NAME / CODE REACTION SEVERITY SOURCE 01/27/2018 Drug piroxicam/F0060 Unknown Unknown [facility] Allergy/416 62180(RXNORM) Hospital 576804(SNOM Repository ED CT) 01/27/2018 Drug adhesive Rash Unknown [facility] Allergy/416 tape/[id number] Hospital 559670(SNOM (RXNORM) Repository ED CT) ENCOUNTERS ENCOUNTERS ADMIT/DISCHARGE ACCOUNT ADMITTING ENCOUNTER LOCATION SOURCE NUMBER CLASS 03/22/2018 [id number] Ambulatory [place] 0 [facility] ing:HPRAD Repository 03/22/2018/ [id number] Ambulatory BMSBuilding:B [place] 8 6 [facility] Repository 02/01/2018 [id number] Ambulatory [place] 1 [facility] ing:POLAB3 Repository 01/27/2018/ [id number] Emergency [place] 8 4 [facility] ing:ED Repository 12/25/2017/ [id number] Ambulatory BMSBuilding:B [place] 8 7 [facility] Repository 12/10/2017/ [id number] Ambulatory BMSBuilding:B [place] 8 1 [facility] Repository 11/27/2017 [id number] Ambulatory BMSBuilding:B [place] 2 [facility] Repository 11/25/2017 [id number] Ambulatory [place] 6 [facility] Hospital ing:POLAB3 Repository 07/30/2017 [id number] Ambulatory BMSBuilding:B [place] 3 [facility] Repository 06/29/2017/ [id number] Ambulatory BMSBuilding:B [place] 8 3 [facility] Repository 06/12/2017 [id number] Ambulatory [place] 3 [facility] Hospital ing:CLSP Repository 06/12/2017 [id number] Ambulatory BMSBuilding:W [place] 5 [facility] Repository 06/05/2017 [id number] Ambulatory [place] 6 [facility] ing:RAD Repository 06/05/2017/ [id number] Ambulatory BMSBuilding:B [place] 8 9 [facility] Repository 06/03/2017 [id number] Ambulatory [place] 6 [facility] ing:CVS Repository 06/03/2017 [id number] Ambulatory BMSBuilding:W [place] 2 [facility] Repository 05/07/2017/ [id number] Ambulatory BMSBuilding:B [place] 8 1 [facility] Repository PAYERS PAYERS ENCOUNTER GUARANTOR PAYER SUBSCRIBER SOURCE 03/22/2018 MARGARETTE Primary MARGARETTE [place] [id number] Insurance:MEDICARE BRENNERDOB: [facility] MARTINEZ PART A [facility] [id number] Number: Repository [address]Sww: 330 [id number] [phone] () Date:2018-03-22 03/22/2018 Secondary MARGARETTE Paul Insurance:MUTUAL OF BRENNERDOB: [facility] Number: [id number] Hospital [id number] Repository Date:6777-62-62RZGZHFVAN [place], [place] [address]UY: 03/22/2018 Tertiary NOT GIVENUNK [place] Insurance:SELF PAY [facility] Number: Effective Repository Date:2018-03-22 03/22/2018 MARGARETTE Primary MARGARETTE Paul [id number] Insurance:MEDICARE BRENNERDOB: [facility] MARTINEZ PART A [facility] [id number] Number: Repository [address]Tkr: [phone] [id number] [phone] () Date:2018-03-08 03/22/2018 Secondary MARGARETTE [place] Insurance:MUTUAL OF BRENNERDOB: [facility] Number: [id number] Hospital [id number] Repository Date:4208-91-52UVXVDE [facility] [address]JK: 03/22/2018 Tertiary NOT GIVENUNK [place] Insurance:SELF PAY [facility] Number: Effective Repository Date:2018-03-19 02/01/2018 MARGARETTE Primary MARGARETTE Paul [id number] Insurance:MEDICARE BRENNERDOB: [facility]EN[facility] PART A [facility] [id number], [place] Number: Repository [address]Iqp: 330 [id number] [phone] () Date:2018-02-01 02/01/2018 Secondary MARGARETTE Paul Insurance:MUTUAL OF BRENNERDOB: [facility] Number: [id number] Hospital [id number] Repository Date:9330-13-40SHJOZJ [place] [address]ES: 02/01/2018 Tertiary NOT GIVENUNK [place] Insurance:SELF PAY [facility] Number: Effective Repository Date:2018-02-01 01/27/2018 MARGARETTE Primary MARGARETTE Paul [id number] Insurance:MEDICARE BRENNERDOB: [facility] KEELEY HENRIQUEZ PART A [facility] [id number], [place] Number: Repository [address]Tkg: [phone] [id number] [phone] () Date:2018-01-27 01/27/2018 Secondary MARGARETTE [place] Insurance:MUTUAL OF BRENNERDOB: [facility] Number: [id number] Hospital [id number] Repository Date:4484-68-03RYTHYF OF [facility] [address]XH: 01/27/2018 Tertiary NOT GIVENUNK [place] Insurance:SELF PAY [facility] Number: Effective Repository Date:2018-01-27 12/25/2017 MARGARETTE Primary MARGARETTE [place] [id number] Insurance:MEDICARE BRENNERDOB: [facility] KEELEY HENRIQUEZ PART A [facility] [id number], [place] Number: Repository [address]Gid: 330 [id number] [phone] () Date:2017-12-10 12/25/2017 Secondary MARGARETTE Paul Insurance:MUTUAL OF BRENNERDOB: [facility] Number: [id number] Hospital [id number] Repository Date:4890-19-12INUBQB OF [place], [place] [address]YN: 12/25/2017 Tertiary NOT GIVENUNK [place] Insurance:SELF PAY [facility] Number: Effective Repository Date:2017-12-25 12/10/2017 MARGARETTE Primary MARGARETTE Paul [id number] Insurance:MEDICARE BRENNERDOB: [facility] DRLEIDA PART A [facility] [id number], [place] Number: Repository [address]Qto: 330 [id number] [phone] () Date:2017-12-03 12/10/2017 Secondary MARGARETTE Paul Insurance:MUTUAL OF BRENNERDOB: [facility] Number: [id number] Hospital [id number] Repository Date:5473-42-78EIXVCJ OF [place], [place] [address]LQ: 12/10/2017 Tertiary NOT GIVENUNK [place] Insurance:SELF PAY [facility] Number: Effective Repository Date:2017-12-10 11/27/2017 MARGARETTE Primary MARGARETTE Paul [id number] Insurance:MEDICARE BRENNERDOB: [facility] PART A [facility] [id number], [place] Number: Repository [address]Mdk: 330 [id number] [phone] () Date:2017-11-27 11/27/2017 Secondary MARGARETTE [place] Insurance:MUTUAL OF BRENNERDOB: [facility] Number: [id number] Hospital [id number] Repository Date:3427-55-35DCOSDZ OF [place], [place] [address]OW: 11/27/2017 Tertiary NOT GIVENUNK [place] Insurance:SELF PAY [facility] Number: Effective Repository Date:2017-11-27 11/25/2017 MARGARETTE Primary MARGARETTE [place] [id number] Insurance:MEDICARE BRENNERDOB: [facility] KEELEY MARTINEZ PART A [facility] [id number] Number: Repository [address]Dzi: 330 [id number] [phone] (HP) Date:2017-11-25 11/25/2017 Secondary MARGARETTE [place] Insurance:MUTUAL OF BRENNERDOB: [facility] Number: [id number] Hospital [id number] Repository Date:3802-26-32LWNMHY OF [place], [place] [address]LL: 11/25/2017 Tertiary NOT GIVENUNK [place] Insurance:SELF PAY [facility] Number: Effective Repository Date:2017-11-25 07/30/2017 MARGARETTE Primary MARGARETTE [place] [id number] Insurance:MEDICARE [facility]NERD[facility] [id number], [place] Number: Repository [address]Dwj: 330 [id number] [phone] (HP) Date:2017-07-23 07/30/2017 Secondary MARGARETTE Paul Insurance:MUTUAL OF BRENNERDOB: [facility] Number: [id number] Hospital [id number] Repository Date:2941-94-06SXOGPA OF [place], [place] [address]QO: 07/30/2017 Tertiary NOT GIVENUNK [place] Insurance:SELF PAY [facility] Number: Effective Repository Date:2017-07-23 06/29/2017 MARGARETTE Primary MARGARETTE Paul [id number] Insurance:MEDICARE BRENNERDOB: [facility] KEELEY DRLEIDA PART A [facility] [id number], [place] Number: Repository [address]Kcm: [phone] [id number] [phone] (HP) Date:2017-06-15 06/29/2017 Secondary MARGARETTE [place] Insurance:MUTUAL OF BRENNERDOB: [facility] Number: [id number] [id number] Repository Date:0459-77-44[place]HUKKSTERL[place], [place] [address]WP: 06/29/2017 Tertiary NOT GIVENUNK Paul Insurance:SELF PAY [facility] Number: Effective Repository Date:2017-06-29 06/12/2017 MARGARETTE Primary MARGARETTE Paul [id number] Insurance:MEDICARE BRENNERDOB: [facility] KEELEY HENRIQUEZ PART A [facility] [id number] Number: Repository [id number]: [phone] [id number] [phone] () Date:2017-06-05 06/12/2017 Secondary MARGARETTE [place] Insurance:MUTUAL OF BRENNERDOB: [facility] Number: [id number] Hospital [id number] Repository Date:5118-83-32JPPPRESTERLING, [place] [address]BM: 06/12/2017 Tertiary NOT GIVENUNK Paul Insurance:SELF PAY [facility] Number: Effective Repository Date:2017-06-05 06/12/2017 MARGARETTE Primary MARGARETTE [place] [id number] Insurance:MEDICARE BRENNERDOB: [facility] KEELEY DRLEIDA PART A [facility] [id number] Number: Repository [id number]: [phone] [id number] [phone] () Date:2017-06-05 06/12/2017 Secondary MARGARETTE [place] Insurance:MUTUAL OF BRENNERDOB: [facility] Number: [id number] Hospital [id number] Repository Date:3091-36-98GIHSTWSTERLING, [place] [address]GB: 06/12/2017 Tertiary NOT GIVENUNK [place] Insurance:SELF PAY [facility] Number: Effective Repository Date:2017-06-12 06/05/2017 MARGARETTE Primary MARGARETTE [place] [id number] Insurance:MEDICARE BRENNERDOB: [facility] KEELEY HENRIQUEZ PART A [facility] [id number], [place] Number: Repository [address]Ltt: 330 [id number] [phone] () Date:2017-06-05 06/05/2017 Secondary MARGARETTE Paul Insurance:MUTUAL OF BRENNERDOB: [facility] Number: [id number] Hospital [id number] Repository Date:7255-51-21GDGZYM OF [place], [place] [address]HC: 06/05/2017 Tertiary NOT GIVENUNK Paul Insurance:SELF PAY [facility] Number: Effective Repository Date:2017-06-05 06/05/2017 MARGARETTE Primary MARGARETTE Paul [id number] Insurance:MEDICARE BRENNERDOB: Community KEELEY HENRIQUEZ PART A [facility] [id number], [place] Number: Repository [address]Qdt: 330 [id number] [phone] () Date:2017-06-04 06/05/2017 Secondary MARGARETTE [place] Insurance:MUTUAL OF BRENNERDOB: [facility] Number: [id number] Hospital [id number] Repository Date:7381-30-62IXXOHG OF [place], [place] [address]PB: 06/05/2017 Tertiary NOT GIVENUNK [place] Insurance:SELF PAY [facility] Number: Effective Repository Date:2017-06-04 06/03/2017 MARGARETTE Primary MARGARETTE [place] [id number] Insurance:MEDICARE BRENNERDOB: [facility] KEELEY DRLEIDA PART A [facility] [id number], [place] Number: Repository [id number]: 330 [id number] [phone] () Date:2017-05-07 06/03/2017 Secondary MARGARETTE [place] Insurance:MUTUAL OF BRENNERDOB: [facility] Number: [id number] Hospital [id number] Repository Date:2020-74-27XBAFIP OF [place], [place] [address]LX: 06/03/2017 Tertiary NOT GIVENUNK [place] Insurance:SELF PAY [facility] Number: Effective Repository Date:2017-05-07 06/03/2017 MARGARETTE Primary MARGARETTE Paul [id number] Insurance:MEDICARE BRENNERDOB: Community KEELEY NAYLORLOT PART A [facility] [id number], [place] Number: Repository [id number]: 330 [id number] [phone] () Date:2017-05-07 06/03/2017 Secondary MARGARETTE Paul Insurance:MUTUAL OF BRENNERDOB: [facility] Number: [id number] Hospital [id number] Repository Date:3204-36-75VEFJMQ [place] [address]KT: 06/03/2017 Tertiary NOT GIVENUNK Paul Insurance:SELF PAY [facility] Number: Effective Repository Date:2017-06-03 05/07/2017 MARGARETTE Primary MARGARETTE [place] [id number] Insurance:MEDICARE BRENNERDOB: Community KEELEY DRIVELOT PART A [facility] [id number], [place] Number: Repository [id number]: [phone] [id number] [phone] () Date:2017-04-30 05/07/2017 Secondary MARGARETTE Paul Insurance:MUTUAL OF BRENNERDOB: [facility] Number: [id number] Hospital [id number] Repository Date:9399-56-55CBQMML [place] [address]AP: 05/07/2017 Tertiary NOT GIVENUNK Paul Insurance:SELF PAY [facility] Number: Effective Repository Date:2017-04-30
== END ==
PROVIDERS: Family Provider Family Medicine Geriatric Medicine; PCP Family Medicine Geriatric Medicine; Referring Provider Physician Assistant; Visit Provider Physician Assistant
DX: M25.561 Pain in right knee (principal); M25.562 Pain in left knee
CPT/HCPCS: 73564

== ENCOUNTER → 2018-05-31 13:28 | Outpatient (CLI) | payer MEDICARE, OTHER, SELFPAY ==
[2018-03-22 13:15] VITALS: BMI 32.8
[2018-05-31 14:58] LABS: Absolute Lymphocyte Count 0.95 X10^3/ul (0.83-4.51); Absolute Neutrophil Count 3.5 X10^3/uL (2.0-7.7); Basophil# 0.01 X10^3/uL; Basophil% 0.2 % (0-1); Eosinophil# 0.14 X10^3/uL; Eosinophils% 2.7 % (0-5); Hematocrit 34.6 % (37-47); Hemoglobin 11.4 g/dl (12.0-15.0); Lymphocyte # 0.95 X10^3/ul (4.0); Lymphocyte % 18.6 % (19-41); Mean Corp Hgb Conc 32.9 g/gl (32-36); Mean Corpuscular Hgb 31.4 pg (27.0-32.0); Mean Corpuscular Volume 95.3 fL (81-99); Mean Platelet Vol. 8.7 fl (6.2-12.0); Monocyte# 0.47 X10^3/uL; Monocyte% 9.2 % (0-10); Neutrophil # 3.54 X10^3/uL (2.7-7.7); Neutrophil % 69.1 % (47-70); Platelet Count 246 K/mm3 (150-450); RBC Distribution Width CV 12.9 % (11.6-14.6); RBC Distribution Width SD 43.3 fl (35.1-43.9); Red Blood Count 3.63 M/mm3 (4.2-5.4); White Blood Count 5.1 K/mm3 (4.4-11.0)
[2018-05-31 15:07] LABS: POSITIVE COUNT NO; POSITIVE DIFFERENTIAL NO; POSITIVE MORPHOLOGY NO
[2018-05-31 15:14] LABS: ALB/GLOB Ratio 1.3 RATIO (0.9-2.4); AST(SGOT) 24 U/L (15-37); Alanine Aminotransfer ALT/SGPT 22 U/L (13-56); Albumin, Serum 3.7 g/dL (3.2-5.0); Alkaline Phosphatase 69 U/L (45-117); Anion Gap 9 (5-15); BUN 14 mg/dL (7-18); BUN/Creat Ratio 21.4 RATIO (10-20); Calcium,Total 8.2 mg/dL (8.5-10.1); Chloride 107 mmol/L (98-107); Creatinine, Serum 0.66 mg/dL (0.55-1.02); EST Glomerular Filtration Rate 94 mL/min (>60); Est Glom Filt Rate - Afr Amer 114 mL/min (>60); Globulin 2.8 g/dL (2.2-4.2); Glucose 89 mg/dL (74-106); Potassium 3.9 mmol/L (3.5-5.1); Protein, Total 6.5 g/dL (6.4-8.2); Sodium Level 141 mmol/L (136-145); Thyroid Stim Hormone (TSH) 0.78 uIU/mL (0.358-3.74); Vitamin D,25 Hydroxy 20.4 ng/mL (29.95-100.01)
== END ==
PROVIDERS: Family Provider Family Medicine Geriatric Medicine; PCP Family Medicine Geriatric Medicine; Visit Provider Family Medicine Geriatric Medicine
DX: I10 Essential (primary) hypertension (principal); E78.5 Hyperlipidemia, unspecified; E55.9 Vitamin D deficiency, unspecified
CPT/HCPCS: 36415; 80053; 82306; 84443; 85025

== ENCOUNTER → 2018-07-20 10:52 | Outpatient (CLI) | payer MEDICARE, OTHER, SELFPAY ==
[2018-03-22 13:15] VITALS: BMI 32.8
--- NOTE | 2018-07-20 10:57 | BD_ITS ---
STUDY: DUAL ENERGY X-RAY ABSORPTIOMETRY / DXA REASON FOR EXAM: Female, 72 years old. The patient is postmenopausal. Loss of height. TECHNIQUE: Bone Mineral Density (BMD) measurements of lumbar spine and bilateral hips were obtained. COMPARISON: Comparison is made with prior study dated July 15, 2016. FINDINGS: Lumbar Spine (L1-L4): g/cm2 (0.936) / T-score (-2.2) / Z-score (-0.5) Findings are suggestive of osteopenia with a high fracture risk. Left Femur Total: g/cm2 (0.593) / T-score (-3.3) / Z-score (-1.7) Left Femoral Neck: g/cm2 (0.575) / T-score (-3.3) / Z-score (-1.5) Right Femur Total: g/cm2 (0.604) / T-score (-3.2) / Z-score (-1.6) Right Femoral Neck: g/cm2 (0.540) / T-score (-3.6) / Z-score (-1.8) The T-Scores on the most recent prior examination were: Lumbar Spine (L1-L4): There has been improvement of bone density since the previous examination. Left Femur Total: which represents an improvement of 10.6%. Right Femur Total: which represents an improvement of 4.3%. BD/Dexa Bone Density Study IMPRESSION: The patient is considered osteoporotic as outlined below according to World [place] Organization (WHO) criteria with a high fracture risk. There has been improvement of bone density since the previous examination. Reference Information: The T-score is the number of standard deviations above or below the standard which is normal for young adults at their peak bone mineral density. The World Health Organization (WHO) interprets the T-scores as follows: Above -1 Normal bone density Between -1 and -2.5 Osteopenia Equal to / or below -2.5 Osteoporosis As a practical clinical guideline, osteopenia may be graded as follows: Mild -1 through -1.5 Moderate -1.6 through -2.0 Severe -2.1 through -2.4 The Z-score is the number of standard deviations above or below age-matched controls. A Z-score of less than -1.5 would be considered abnormal. References: 1. NIH Osteoporosis and Related Bone Diseases http://www.osteo.org 2. International Society for Clinical Densitometry http://www.iscd.org 3. National Osteoporosis Foundation http://www.nof.org Electronically Signed: Nik Guzman, at 11:49 EDT , Service support ,
== END ==
PROVIDERS: Family Provider Family Medicine Geriatric Medicine; PCP Family Medicine Geriatric Medicine; Referring Provider Family Medicine Geriatric Medicine; Visit Provider Family Medicine Geriatric Medicine
DX: M81.0 Age-related osteoporosis without current pathological fracture (principal)
CPT/HCPCS: 77080

== ENCOUNTER → 2018-12-09 11:17 | Outpatient (CLI) | payer MEDICARE, OTHER, SELFPAY ==
[2018-03-22 13:15] VITALS: BMI 32.8
[2018-12-09 12:32] LABS: Absolute Lymphocyte Count 1.02 X10^3/uL (0.83-4.51); Absolute Neutrophil Count 2.7 X10^3/uL (2.0-7.7); Basophil# 0.02 X10^3/uL; Basophil% 0.4 % (0-1); Eosinophils% 4.5 % (0-5); Hematocrit 32.8 % (37-47); Hemoglobin 10.7 g/dL (12.0-15.0); Lymphocyte # 1.02 X10^3/ul (4.0); Lymphocyte % 22.9 % (19-41); Mean Corp Hgb Conc 32.6 g/dL (32-36); Mean Corpuscular Hgb 29.6 pg (27.0-32.0); Mean Corpuscular Volume 90.9 fL (81-99); Mean Platelet Vol. 9.1 fl (6.2-12.0); Monocyte# 0.48 X10^3/uL; Monocyte% 10.8 % (0-10); NRBC Flagged by Analyzer 0 % (0-5); Neutrophil # 2.72 X10^3/uL (2.7-7.7); Neutrophil % 61.2 % (47-70); Platelet Count 218 K/mm3 (150-450); RBC Distribution Width CV 13.1 % (11.6-14.6); RBC Distribution Width SD 43.2 fl (35.1-43.9); Red Blood Count 3.61 M/mm3 (4.2-5.4); White Blood Count 4.5 K/mm3 (4.4-11.0)
[2018-12-09 12:53] LABS: Vitamin D,25 Hydroxy 36.1 ng/mL (29.95-100.01)
[2018-12-09 13:04] LABS: ALB/GLOB Ratio 1.2 RATIO (0.9-2.4); AST(SGOT) 22 U/L (15-37); Alanine Aminotransfer ALT/SGPT 17 U/L (13-56); Albumin, Serum 3.8 g/dL (3.2-5.0); Alkaline Phosphatase 74 U/L (45-117); Anion Gap 6 (5-15); BUN 12 mg/dL (7-18); BUN/Creat Ratio 18.2 RATIO (10-20); Chloride 104 mmol/L (98-107); Creatinine, Serum 0.66 mg/dL (0.55-1.02); EST Glomerular Filtration Rate 94 mL/min (>60); Est Glom Filt Rate - Afr Amer 113 mL/min (>60); Globulin 3.1 g/dL (2.2-4.2); Glucose 93 mg/dL (74-106); Potassium 3.9 mmol/L (3.5-5.1); Protein, Total 6.9 g/dL (6.4-8.2); Sodium Level 137 mmol/L (136-145)
== END ==
PROVIDERS: Family Provider Family Medicine Geriatric Medicine; PCP Family Medicine Geriatric Medicine; Visit Provider Family Medicine Geriatric Medicine
DX: I10 Essential (primary) hypertension (principal); E55.9 Vitamin D deficiency, unspecified; M10.9 Gout, unspecified
CPT/HCPCS: 36415; 80053; 82306; 84443; 84550; 85025

== ENCOUNTER → 2018-12-15 13:23 | Outpatient (CLI) | payer MEDICARE, OTHER, SELFPAY ==
[2018-03-22 13:15] VITALS: BMI 32.8
--- NOTE | 2018-12-15 13:27 | BI_ITS ---
MAMMOGRAPHY - BILATERAL SCREENING REASON FOR EXAM: Female, 73 years old. Routine annual screening examination. PERTINENT HISTORY: Non-contributory. TECHNIQUE: Digital bilateral breast paz (3D mammographic acquisition) in the CC and MLO projections. 2-D mediolateral oblique (MLO) and craniocaudad (CC) views of both breasts were obtained. CAD: Full Field Digital Mammography with Computer Added Detection was performed. COMPARISON: Comparison is made with prior study dated July 15, 2016 and February 13, 2010. FINDINGS: Breast Composition: The breasts are almost entirely fatty. There are no dominant masses or suspicious calcifications. Stable small benign-appearing bilateral axillary lymph nodes. No other significant abnormalities are identified. There has been no significant change since the prior study. BI/SCREEN MAMM (CAD) W/PAZ BILAT IMPRESSION: Stable bilateral screening mammogram. Yearly follow-up mammogram recommended. (A) ASSESSMENT CATEGORY: BIRADS Category 2: Benign. A letter regarding these results will be sent to the patient by the facility within 30 days. Approximately 10% of breast cancers are not detected by mammography. A normal mammogram should not delay biopsy of a clinically suspicious abnormality. [id number] Electronically Signed: Nik Guzman, at 9:13 EDT , Service support ,
== END ==
PROVIDERS: Family Provider Family Medicine Geriatric Medicine; PCP Family Medicine Geriatric Medicine; Referring Provider Family Medicine Geriatric Medicine; Visit Provider Family Medicine Geriatric Medicine
DX: Z12.31 Encounter for screening mammogram for malignant neoplasm of breast (principal)
CPT/HCPCS: 77063; 77067

== ENCOUNTER → 2019-06-16 12:45 | Outpatient (CLI) | payer MEDICARE, OTHER, SELFPAY ==
[2019-06-02 15:12] VITALS: BMI 35.2
--- NOTE | 2019-06-16 12:46 | ECHOD_ITS ---
Reason For Study: CHF Procedure This was a 2D Doppler, Color Flow transthoracic echocardiogram. Exam performed in department. Left Ventricle Normal size and thickness. The estimated ejection fraction is 60 %. Stage 2 diastolic dysfunction. No regional wall motion abnormalities noted. Right Ventricle Moderately dilated right ventricle. Normal systolic function. Atria The left atrium is severely enlarged. Normal right atrium. Normal atrial septum. Mitral Valve Mild diffuse mitral valve thickening. Mild mitral annular calcification extending into the posterior leaflet. Moderately severe (3+) mitral valve insufficiency. Tricuspid Valve Normal tricuspid valve. Trivial tricuspid valve insufficiency. Right ventricular systolic pressure estimated to be 38 mmHg. Mild pulmonary hypertension. Aortic Valve Trisinus/trileaflet aortic valve. Mild diffuse aortic valve thickening. Mild aortic stenosis. Peak aortic valve gradient 18 mmHg. Mean aortic valve gradient 8 mmHg. Calculated aortic valve area (continuity equation) is 1.5 cm2. Pulmonic Valve Normal pulmonic valve. Great Vessels Normal aortic root. Mild atherosclerosis of the aortic arch. Normal inferior vena cava. Inferior vena cava collapse with sniff. Pericardium/Pleural No pericardial effusion. MMode/2D Measurements & Calculations LVIDd: 3.8 cm IVSd: 1.4 cm LVOT diam: 2.0 cm LVIDs: 2.9 cm LVPWd: 1.1 cm LVOT area: 3.0 cm2 RVDd: 4.2 cm FS: 24.9 % Ao root diam: 3.5 cm LAV(MOD-bp): 97.6 ml Aortic Valve Planimetry: 1.5 cm2 LA dimension: 4.6 cm LAV(MOD-bp) Indexed: 62.6 ml/m2 LAV(MOD-sp2): 75.0 ml LAV(MOD-sp4): 115.5 ml LA A4 area: 30.3 cm2 RA A4 area: 19.3 cm2 Time Measurements MV dec time: 0.29 sec Doppler Measurements & Calculations MV E max jose: 89.1 cm/sec Lat Peak E' Jose: 7.7 cm/sec Med Peak E' Jose: 4.6 cm/sec MV A max jose: 72.9 cm/sec E/E' lat: 11.5 E/E' med: 19.2 MV E/A: 1.2 MV V2 max: 114.6 cm/sec MV P1/2t max jose: 118.5 cm/sec Ao V2 max: 210.3 cm/sec MV max P.3 mmHg MV P1/2t: 103.6 msec Ao max P.7 mmHg MV V2 mean: 55.1 cm/sec MV dec slope: 335.0 cm/sec2 Ao V2 mean: 129.1 cm/sec MV mean P.5 mmHg Ao mean P.9 mmHg MV V2 VTI: 43.6 cm MVA(P1/2t): 2.1 cm2 Ao V2 VTI: 40.8 cm MVA(VTI): 1.4 cm2 KRISTA(I,D): 1.5 cm2 KRISTA(V,D): 1.4 cm2 LV V1 max: 98.9 cm/sec MR max jose: 606.7 cm/sec SV(LVOT): 62.6 ml LV V1 max P.9 mmHg MR max P.2 mmHg LV V1 mean P.8 mmHg MR mean jose: 470.8 cm/sec LV V1 mean: 62.3 cm/sec MR mean P.5 mmHg LV V1 VTI: 20.6 cm MR VTI: 232.3 cm PA V2 max: 109.8 cm/sec TR max jose: 285.2 cm/sec TR max P.5 mmHg Interpretation Summary The estimated ejection fraction is 60 %. Stage 2 diastolic dysfunction. Moderately dilated right ventricle. The left atrium is severely enlarged. Moderately severe (3+) mitral valve insufficiency. Trivial tricuspid valve insufficiency. Right ventricular systolic pressure estimated to be 38 mmHg. Mild pulmonary hypertension. Mild aortic stenosis. Compared to echo report dated 11/16/2013, LV function has remained the same but RVSP has increased from 19 to 38 mmHg. Patient appears to have developed moderate to moderate to severe mitral regurgitation in the interim. Ordering Physician: Ellis Keating Referring Physician: Cassius Monaco Chi Performed By: Jerardo Norris RCS
[2019-11-15 09:52] VITALS: BMI 36.3
== END ==
PROVIDERS: PCP Family Medicine Geriatric Medicine; Referring Provider Internal Medicine Cardiovascular Disease; Visit Provider Internal Medicine Cardiovascular Disease
DX: Z98.890 Other specified postprocedural states (principal)
CPT/HCPCS: 93306

== ENCOUNTER → 2019-11-05 07:03 | Outpatient (CLI) | payer MEDICARE, OTHER, SELFPAY ==
[2019-11-02 10:40] VITALS: BMI 36.3
--- NOTE | 2019-11-05 07:05 | RAD_ITS ---
STUDY: X-RAY CHEST REASON FOR EXAM: Female, 73 years old. HEART CATH TECHNIQUE: Frontal and lateral views of the chest COMPARISON: June 29 2016 FINDINGS: Lungs are clear. There is no pneumothorax, pulmonary edema or pleural effusions. Cardiac size is normal. There is widening of the superior mediastinum and enlargement of the pulmonary derek. The skeleton is osteoporotic with a chronic healed left seventh rib fracture. There is severe compression fracture with cement augmentation of a midthoracic vertebra. Appearance is stable since priors. RAD/Chest PA and Lateral IMPRESSION: 1. No acute findings or change since prior. 2. Enlarged derek, nonspecific appearance, possibly due to pulmonary arteries or soft tissue such as lymphadenopathy. Refer to definitive imaging. Electronically Signed: Abram Flores, at 19:40 EDT Tel , Service support ,
[2019-11-05 08:16] LABS: Hematocrit 37.5 % (37-47); Hemoglobin 12.2 g/dL (12.0-15.0); Mean Corp Hgb Conc 32.5 g/dL (32-36); Mean Corpuscular Hgb 30.1 pg (27.0-32.0); Mean Corpuscular Volume 92.6 fL (81-99); Platelet Count 221 K/mm3 (150-450); RBC Distribution Width CV 12.6 % (11.6-14.6); RBC Distribution Width SD 42.7 fl (35.1-43.9); Red Blood Count 4.05 M/mm3 (4.2-5.4); White Blood Count 3.9 K/mm3 (4.4-11.0)
[2019-11-05 08:27] LABS: International Normalized Ratio 1.1; Partial Thromboplast Time 32.1 Seconds (24.1-36.2); Prothrombin Time (Protime)PT. 13.6 SECONDS (11.7-14.9)
[2019-11-05 09:33] LABS: AST(SGOT) 18 U/L (15-37); Alanine Aminotransfer ALT/SGPT 13 U/L (13-56); Albumin, Serum 3.8 g/dL (3.2-5.0); Alkaline Phosphatase 74 U/L (45-117); Anion Gap 3 (5-15); BUN 17 mg/dL (7-18); BUN/Creat Ratio 24.8 RATIO (10-20); Bilirubin, Direct 0.16 mg/dL (0.00-0.30); Calcium,Total 8.9 mg/dL (8.5-10.1); Chloride 107 mmol/L (98-107); Cholesterol 223 mg/dL (200); Creatinine, Serum 0.69 mg/dL (0.55-1.02); EST Glomerular Filtration Rate 89 mL/min (>60); Est Glom Filt Rate - Afr Amer 108 mL/min (>60); Globulin 3.3 g/dL (2.2-4.2); Glucose 82 mg/dL (74-106); High Density Lipoprotein 51 mg/dL; Potassium 3.9 mmol/L (3.5-5.1); Protein, Total 7.1 g/dL (6.4-8.2); Sodium Level 138 mmol/L (136-145); Triglycerides 91 mg/dL; Very Low Density Lipoprotein 18 mg/dL (5-40)
== END ==
PROVIDERS: PCP Family Medicine Geriatric Medicine; Referring Provider Internal Medicine Cardiovascular Disease; Visit Provider Internal Medicine Cardiovascular Disease
DX: R07.9 Chest pain, unspecified (principal); I34.0 Nonrheumatic mitral (valve) insufficiency; I27.20 Pulmonary hypertension, unspecified; E78.00 Pure hypercholesterolemia, unspecified; I48.0 Paroxysmal atrial fibrillation
CPT/HCPCS: 36415; 71046; 80048; 80061; 80076; 85027; 85610; 85730

== ENCOUNTER 2019-11-16 08:35 | Outpatient (CLI) | payer MEDICARE, OTHER, SELFPAY ==
[2019-06-16 13:42] VITALS: BMI 35.2
[2019-11-02 10:40] VITALS: BMI 36.3
--- NOTE | 2019-11-16 08:38 | ECHOTEE_ITS ---
Reason For Study: VALVE REPL EVAL Medication HANNY probe 6VT-D (SN [id number]) passed without difficulty. No complications were noted. [id number] gargled and swallowed. Cetacaine Topical [place] given X2 orally. Versed 4 mg given slow IVP. Fentanyl 25 mcg given slow IVP. Performed a rapid injection of agitated mix of 9 cc saline and 1cc air to assess for atrial septal defect. Left Ventricle Normal size and thickness. The estimated ejection fraction is 65 %. No regional wall motion abnormalities noted. Right Ventricle Moderately dilated right ventricle. Normal systolic function. The right ventricular wall motion is normal. Atria Normal atrial septum. Bubble contrast study negative for right to left interatrial shunt. The left atrium is severely enlarged. No thrombus is detected in the left atrial appendage. Normal right atrium. Mitral Valve Mild diffuse mitral valve thickening. Moderate (2+) mitral valve insufficiency. Tricuspid Valve Normal tricuspid valve. Trivial tricuspid valve insufficiency. Right ventricular systolic pressure estimated to be 23 mmHg. Aortic Valve Trisinus/trileaflet aortic valve. Mild focal aortic valve thickening. There is no aortic stenosis. Pulmonic Valve Normal pulmonic valve. Vessels Normal aortic root. Mild atherosclerosis of the aortic arch. The pulmonary artery is normal size. Normal pulmonary veins. Doppler Measurements & Calculations TR max olesya: 211.4 cm/sec Interpretation Summary The estimated ejection fraction is 65 %. Moderately dilated right ventricle. Bubble contrast study negative for right to left interatrial shunt. The left atrium is severely enlarged. Moderate (2+) mitral valve insufficiency. Trivial tricuspid valve insufficiency. Right ventricular systolic pressure estimated to be 23 mmHg. No thrombus is detected in the left atrial appendage. Ordering Physician: Ellis Keating Referring Physician: PATRIA LOWE Performed By: Mirtha Graff, RDCS, RVT
[2019-11-16 09:05] VITALS: BMI 35.0
[2019-11-16 11:40] LABS: Blood Gas Specimen Type VEN; VBG BASE EXCESS 1 mmol/L (-1.0-3.5); VBG Bicarbonate 26 mmol/L (22-26); VBG Oxygen Content 28 mmol/L (23-33); VBG PO2 50 mmHg (25-40); VBG SO2 83 % (50-70); VBG pCO2 46.3 mmHg (41-51); VBG pH 7.36 (7.32-7.42)
[2019-11-16 11:45] LABS: Blood Gas Specimen Type VEN; VBG BASE EXCESS 2 mmol/L (-1.0-3.5); VBG Bicarbonate 27 mmol/L (22-26); VBG Oxygen Content 29 mmol/L (23-33); VBG PO2 48 mmHg (25-40); VBG SO2 82 % (50-70); VBG pCO2 46.6 mmHg (41-51); VBG pH 7.37 (7.32-7.42)
[2019-11-16 11:51] LABS: Base Excess 3 mmol/L (-2 to +2); Bicarbonate 27.5 mmol/L (22-26); Blood Gas Specimen Type ART; PO2 78 mmHG (75-100); SO2 95 % (95-99); Total Carbon Dioxide 29 mmol/L; pCO2 45.4 mmHg (35-45); pH 7.39 (7.35-7.45)
--- NOTE | 2019-11-16 12:01 | HP.PCM_ITS ---
Problem List (1) HTN (hypertension) Status: Chronic Qualifiers: (2) Mixed hyperlipidemia Status: Chronic (3) Moderate to severe pulmonary hypertension Status: Chronic (4) Paroxysmal atrial fibrillation Status: Chronic (5) Severe mitral regurgitation Status: Chronic History and Physical Date of Admission: 11/16/19 [facility] [address] [place] [address] OFFICE VISIT Date of Service: 11/02/19 MR#: [id number] Acct: [id number] Name: MARGARETTE LAWRENCE Rep #: [id number] : 1945 Provider: MANOLO Fernandez Roof Age/Sex: 73/F Location: [facility] [place] [place] Status: Signed HPI [facility] History of Present Illness Details: Mrs. Lawrence is a very pleasant 73-year-old nondiabetic, nonsmoking female, with no previous cardiac history who was referred to our office for syncope and atrial fibrillation. Approximately 2 weeks prior to our initial visit, while walking to her car with a Pepsi in one hand and her purse and the other hand, the patient had a sudden syncopal episode injuring her right lower extremity causing an abrasion and excessive bleeding and bruising. Patient did not hit her head. patient does not remember anything of the incident until she hit the ground. She did not seek medical attention and then went to her primary care doctor approximately one week later for an unrelated issue. At that time she was found to be in atrial fibrillation and a Holter monitor was ordered on 11/03/13. This demonstrated atrial fibrillation 446 minutes were about 10% of the time. On further history the patient reports that about 3 years ago she had 4 syncopal episodes while taking care of her sick mother. At that time it was similar in that she had no recollection of the events, and actually injured her head when she passed out causing a black eye. It was attributed that time to a psychological issue as she was unable to tell her mother that her mother had been diagnosed with liver cancer. The symptoms abated until this last episode. As part of her cardiac workup she underwent a stress test in November 2013 which was poor exercise capacity and possible anterior ischemia. She then underwent catheterization in November 2013 which demonstrated normal coronary arteries and significant systemic hypertension. The patient was treated with antihypertensive medications and she's had no further symptoms whatsoever. Since October 2014 her Eliquis was discontinued, and she remains on Coreg and baby aspirin as well as lisinopril/HCTZ. She reports her blood pressure was initially much better, and she has no further lower extremity edema. Her shortness of breath is completely resolved. She did not undergo pulmonary function testing. She did however go to the emergency room in January 2016 with vertigo which was corrected with Nylan Barany technique. Since that time she is doing very well and denies any chest pain or angina. She is back to working and standing on her feet most of the day. She reports that her cholesterol was obtained by her PCP about a month ago. She underwent knee surgery, first in June 2015 followed by April 2016. Patient feels much better and is able to ambulate. She occasionally felt what she describes as substernal heaviness as if an elephant is sitting on her chest with exertion, and relieved with rest. The water pill component of her lisinopril was recently discontinued by her PCP out of concern for chronic renal insufficiency. Lipids are pending per her PCP. Patient does not take her blood pressure when her chest pain occurs. As part of her cardiac workup she underwent a dobutamine echocardiogram on 06/03/17 which was abnormal for global LV dilatation and hypertensive blood pressure response to dobutamine. She underwent a diagnostic left and right heart coronary angiogram on 06/12/17 which demonstrated moderate pulmonary hypertension, nonobstructive coronary disease, and mild global LV dysfunction with an EF around 45-50%. Patient has not seen us in the office since 2018. On 06/02/2001 she is extremely hypertensive with a blood pressure 178/102 with a pulse of 68 and regular. 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 She is under an enormous amount of psychosocial stress with her boss who is very demanding. She underwent an Echocardiogram on 06/16/2019 that showed EF of 60%, moderately dilated right ventricle, severely enlarged left atrium, moderately severe mitral valve insufficiency, mild aortic stenosis, and RVSP of 38 mmHg, mild pulmonary hypertension. She will be undergoing a HANNY, RHC, and LHC to evaluate further to guide valve treatment. Pt denies chest, arm, jaw, or neck discomfort. Her exercise tolerance is stable. Pt denies symptoms of CHF, palpitations, lightheadedness, dizziness, near syncopal or syncopal episodes. Pt denies edema or claudication issues. Pt. denies orthopnea, PND, fever, chills, blood in urine, blood in stool, myalgia, or unexplainable fatigue. She states monitoring blood pressure at home and it is much improved. Intake Vital Signs 11/02/19 BP 180/110 H 11/02/19 Blood Pressure Location Lt brachial 11/02/19 Position Sitting 11/02/19 Height 4 ft 8 in 11/02/19 Weight: 162 lb 11/02/19 BP 200/129 H 11/02/19 Blood Pressure Location Lt brachial 11/02/19 Position Sitting 11/02/19 Respiration 18 11/02/19 Pulse 66 11/02/19 Pulse Source Monitor 11/02/19 Pulse Oximetry (%) 97 Intake Visit Reasons: Update H & P/ Needs EKG Editing Intern Required: No Accompanied by: None Is patient in pain?: No Allergies piroxicam Allergy (Verified 11/02/19 13:22) Unknown adhesive tape Adverse Reaction (Verified 11/02/19 13:22) Rash Medications Pravastatin [Pravachol] 40 mg PO QHS 01/28/13 [History Confirmed 06/02/19] furosemide 40 mg tablet 40 mg PO QDAY #30 tab 06/12/17 [Rx Confirmed 06/02/19] lisinopril 40 mg tablet 40 mg PO QDAY #90 tab 05/25/19 [Rx Confirmed 05/25/19] alendronate 70 mg tablet 70 mg PO QWEEK 06/02/19 [History Confirmed 06/02/19] carvedilol 25 mg tablet 25 mg PO BID #180 tab 06/02/19 [Rx Confirmed 06/02/19] ergocalciferol (vitamin D2) 1,250 mcg (50,000 unit) capsule 1,250 mcg PO QMONTH 06/02/19 [History Confirmed 06/02/19] isosorbide mononitrate 30 mg tablet,extended release 24 hr 30 mg PO DAILY #30 tab 06/02/19 [Rx Confirmed 06/02/19] potassium chloride 20 mEq tablet,extended release 20 meq PO DAILY 06/02/19 [History Confirmed 06/02/19] PFSH Medical History (Updated 11/02/19 @ 14:22 by MANOLO Garcia) Chest pain (Acute) Severe mitral regurgitation (Chronic) Moderate to severe pulmonary hypertension (Chronic) Nonrheumatic mitral (valve) insufficiency (Chronic) Secondary pulmonary hypertension (Chronic) Costochondritis (Resolved) HTN (hypertension) (Chronic) Mixed hyperlipidemia (Chronic) Paroxysmal atrial fibrillation (Chronic) Syncope and collapse (Chronic) Bradycardia (Chronic) GERD (gastroesophageal reflux disease) (Chronic) Vertigo (Chronic) bilateral feet surgery (Inactive) Surgical History History of left heart catheterization (Chronic 06/12/17) History of knee replacement, total (Chronic) History of hysterectomy (Resolved) History of tonsillectomy (Resolved) H/O: hysterectomy (Inactive) History of carpal tunnel release (Inactive) History of tonsillectomy (Inactive) Right TKA (Inactive) Social History (Updated 11/02/19 @ 14:23 by MANOLO Garcia) Smoking Status: Never smoker alcohol intake: current alcohol intake frequency: holidays/special occasions only substance use type: does not use caffeine: Yes Type: carbonated beverages Number of servings: 1 what type of physical activity do you participate in: none ROS Const Const: Negative for fatigue, weakness, body ache, fever(s) or chills ENT ENT: Negative for dizziness Cardio Chest Pain: No Palpitations: No Edema: None Muscle aches with walking: None Resp Respiratory: Negative for SOB with activity, SOB at rest, SOB orthopnea\SOB lying down or paroxysmal nocturnal dyspnea GI GI: Negative nausea, vomiting blood/hematemesis, bright, red blood in stools or black,tarry stools : Negative for hematuria or frequent nighttime urination/ nocturia Musc Musc: Negative for muscle aches/ myalgia Skin Skin: Negative non-healing lesions or rash Neuro Neuro: Negative for dizziness, lightheadedness, near syncope, syncope, orthostatic symptoms or weakness Endo Endo: Negative for fatigue Allergy Allergy/Immunology: Negative for rash Cardiology Exam Const Appearance: cooperative, healthy appearing, comfortable and no acute distress Nutritional Appearance: well nourished and obese Orientation: alert, awake and oriented x3 Head Head: normal to inspection Ears: hearing grossly normal bilaterally Nose: external nose normal Face and Sinus: face symmetric Mouth: oral mucosae normal Eyes General: appearance normal, both eyes and all related structures Eyelids: eyelids normal EOM: EOM intact bilaterally Neck Neck: normal visual inspection and no JVD Carotids: normal carotid upstroke Chest Chest inspection: normal inspection of the chest, symmetric chest movement and normal respiratory effort; negative cough Auscultation: Bilateral: Clear to Auscultation Cardio Rate: regular rate Rhythm: regular rhythm Heart sounds: S1 normal, S2 normal and murmur; negative rub or gallop Murmur: Grade 2/6 and LLSB GI GI: normal to inspection and obese Neuro General: alert, awake, oriented x3 and CN's II-XI intact bilaterally Skin Skin: no rashes or lesions noted Extremities Pulses: Normal: Right Posterior Tibial Pulse, Left Posterior Tibial Pulse, Right Radial Pulse, Left Radial Pulse Lower Extremity Edema: None: Bilateral Psych Psychological: normal affect Assessment & Plan 1. Nonrheumatic mitral (valve) insufficiency I34.0 Plan Patient's echocardiogram in June 2019 showed just fraction of 60%, stage II diastolic dysfunction, and moderate severe mitral valve insufficiency. She will proceed with HANNY, right heart catheterization, and left heart catheterization to further guide treatment. Based on results of such tests, further recommendation will be made. 2. Paroxysmal atrial fibrillation I48.0 Plan This appears stable. Her EKG today in office shows sinus rhythm at a rate of 65 bpm QTC of 408. She will continue beta-shikha therapy. We will continue to monitor. She is currently not on oral anticoagulation. Orders Orders: 12 Lead EKG performed by [facility] Today 3. Syncope and collapse R55 Plan There has not been any symptomatic recurrence. Her heart rate and blood pressure are well controlled. We will continue to monitor. 4. Essential hypertension I10 Plan Patient states when she presents to [facility] office appointments that her blood pressure was typically high. She stated it is better controlled at home. Depending on results of upcoming tests, she may benefit from adjustment of medications. This may include increasing isosorbide therapy. 5. Mixed hyperlipidemia E78.2 Plan She will continue current statin medication. Plan Detail Other Orders Orders: 12 Lead EKG performed by [facility] Today R00.1 Additional Comments Thank you for allowing us to participate in the patients plan of care, if you have any questions please do not hesitate to call. This note was generated using a voice recognition system and there may be incorrect words, spelling or punctuation that were not noted when reviewing the office note prior to saving. Follow Up keep as is Coding Level of Care Code Off vis,est,level 3 Diagnoses Nonrheumatic mitral (valve) insufficiency I34.0 Paroxysmal atrial fibrillation I48.0 Syncope and collapse R55 Essential hypertension I10 ??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 type: essential hypertension Mixed hyperlipidemia E78.2 Coding Level of Care Code Off vis,est,level 3 Diagnoses Nonrheumatic mitral (valve) insufficiency I34.0 Paroxysmal atrial fibrillation I48.0 Syncope and collapse R55 Essential hypertension I10 ??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 type: essential hypertension Mixed hyperlipidemia E78.2 Supplemental Info Supplemental Information Echocardiogram from 06/16/2019: Interpretation Summary The estimated ejection fraction is 60 %. Stage 2 diastolic dysfunction. Moderately dilated right ventricle. The left atrium is severely enlarged. Moderately severe (3+) mitral valve insufficiency. Trivial tricuspid valve insufficiency. Right ventricular systolic pressure estimated to be 38 mmHg. Mild pulmonary hypertension. Mild aortic stenosis. Compared to echo report dated 11/16/2013, LV function has remained the same but RVSP has increased from 19 to 38 mmHg. Patient appears to have developed moderate to moderate to severe mitral regurgitation in the interim. Diagnostics Electrocardiogram 11/02/19 Echocardiogram 06/16/19 11/02/19 1424 <Electronically signed by Ozzie Edmonds> Date _ Ozzie Gilliland NP-Andrew Cosigner Signature: Date (if applicable) CC: Dr. Cassius Monaco MD ~ Interventional cardiology addendum: The patient seen and examined on day of procedure, and underwent precatheterization transesophageal echocardiogram to determine her degree of mitral regurgitation. This appeared to have moderate 3+ mitral regurgitation, with moderate left atrial enlargement. The risk/benefits of the procedure were thoroughly explained to the patient including specific attention to lack of onsite surgical backup, and informed consent was obtained prior to HANNY sedation. We will proceed with left and right her catheterization.
--- NOTE | 2019-11-16 12:11 | CL.D_ITS ---
Patient Name: MARGARETTE WISE Study Date: 11/16/2019 Performing: Ellis Keating MD Ht: 55.9 inches 142 cm : 1945 Wt: 160.94 lbs 73 kg Age: 73 Gender: female BSA: 1.62 PROCEDURE(S) PERFORMED MU92-WJS/LHC/COR/LV CLINICAL PROFILE AND INDICATIONS Indications: Stable Known CAD, Pre-Operative Evaluation, Valvular Disease Heart Failure: None Stress/Imaging Date: 06/03/2017Stress Echocardiogram: Positive Low Risk Angina Classification Anginal Classification w/in 2 Weeks: CCS II CAD Presentations: Unstable angina. Other: Dyspnea on exertion Comorbidities/Risk Factors: 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 Dyslipidemia CONCLUSIONS Normal LV size, wall motion,and systolic function Non obstructive coronary arteries Mitral Valve Insufficiency Moderate The patient has pulmonary hypertension which is moderate. RECOMMENDATIONS Management as per referring Transmission Calibration Engineer D/c plavix; increase imdur to 30mg po bid and titrate up from there. Start Hydralazine 10mg po bid a nd titrate up from there. BP check in 2 weeks. If pt continues to have TERRAZAS despite optimized BP, wi ll consider referral for MR repair. Successful Mynx Control closure of RFA. DESCRIPTION OF PROCEDURE The patient arrived to the procedure lab. The risks and benefits of the procedure as well as a full d escription of our services here and current unavailability of surgical backup were fully explained to the patient and/or their significant other prior to the catheterization. The Timeout was completed, verifying the correct patient and procedure. The patient's procedural site was prepped and draped in the usual fashion. Local anesthetic was given subcutaneously to right groin region with Lidocaine 2%. Using a modified Seldinger technique, arterial access was obtained via the right femoral artery, a 4 Fr sheath was inserted Venous access was obtained via the right femoral vein, a 7Fr sheath was insert ed. A 7Fr thermal dilution catheter was inserted and right heart pressures were recorded, it was then advanced to PA position for cardiac outputs. Thermal dilution cardiac outputs were then recorded. O2 saturations were then obtained. Left Ventriculography was performed in MEDELLIN projection using a 4 Fr. Pigtail catheter. Simultaneous pressures were then recorded. The Thermal dilution malena ter was then removed. LV to AO pullback pressures were then recorded. Left Coronary Artery selective angiography was performed in multiple views using a 4 Fr. JL5 catheter. Right Coronary Artery selecti ve angiography was then performed in multiple views using a 4 Fr. 3DRC catheter.The arterial sheath w as pulled and a Mynx closure device was deployed for hemostasis. The venous sheath was then pulled an d manual compression applied until hemostasis achieved CORONARY ANGIOGRAPHY DOMINANCE: Right Dominant LEFT HEART ASSESSMENT Left Ventricular Ejection Fraction: by LV Gram 65 % Normal LV wall motion Normal Left Ventricular systolic function LVEDP: 9 mmHg Normal Left Ventricular End Diastolic Pressure RIGHT HEART ASSESSMENT Thermal CO: 6.32 Thermal CI: 3.9 PW: /10 7 PA: 40/12 22 RV: 42/1 7 RA: 5/6 4 PVR: 190 SVR: 1785 Right Heart pressures - elevated Pulmonary 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 Moderate LEFT MAIN: Angiographically normal LEFT ANTERIOR DESCENDING ARTERY: MID LAD: Mild luminal irregularities less than 30% CIRCUMFLEX ARTERY: MID CIRC: Mild luminal irregularities less than 30% RIGHT CORONARY ARTERY: DISTAL RCA: Mild luminal irregularities less than 30% RT PDA: Proximal - Mild luminal irregularities less than 30% VALVE FINDINGS: Mitral Valve Insufficiency - Grade 2 COMPLICATIONS No Complications PROCEDURE MEDICATIONS Oxygen: 2 L/min via nasal cannula Nitro 300 mcg IC 11/16/2019 11:41:52 Nitro 300 mcg IC 11/16/2019 11:41:52 Nitro Paste 1 in, left chest 11/16/2019 11:49:55 Nitro 300 mcg IC 11/16/2019 11:52:47 SUMMARY OF HEMODYNAMIC DATA Time AIR REST ECG 09:00:58 ECG 11:06:56 RA 5/6 (4) SV 11:30:46 RV 42/1, 7 11:31:04 PA 40/12 (22) PA 11:32:08 PW 11/10 (7) PV 11:35:26 PA 39/6 (23) 11:35:39 LV 220/-9, 12 11:39:31 LV 235/-7, 9 11:39:39 LV 215/-10, 11 11:40:16 PW 18/20 (12) 11:40:16 LV 225/-8, 11 11:40:37 PA 50/12 (28) 11:40:37 LV 227/-7, 10 11:41:10 RV 50/3, 6 11:41:10 LV 202/-11, 7 11:45:04 LVp 215/-9, 8 11:45:08 AOp 222/99 (144) 11:45:14 AO 219/102 (145) SA 11:45:17 Type SV CO (l/m) CI (l/m/ HR Time AIR REST Thermal 121.50 6.32 3.90 52 09:00:58 Signed By Ellis Keating MD On 11/16/2019 12:10:38 Ellis Keating MD
== END 2019-11-16 16:22 | disposition home or self-care (01) ==
LOC: CVS 08:38
PROVIDERS: PCP Family Medicine Geriatric Medicine; Referring Provider Internal Medicine Cardiovascular Disease; Visit Provider Internal Medicine Cardiovascular Disease
DX: I08.0 Rheumatic disorders of both mitral and aortic valves (principal); I48.0 Paroxysmal atrial fibrillation; E78.2 Mixed hyperlipidemia; I10 Essential (primary) hypertension; I27.20 Pulmonary hypertension, unspecified; R55 Syncope and collapse; R06.09 Other forms of dyspnea
CPT/HCPCS: 82803; 87635; 93312; 93320; 93325; 93460; 94799; C1760; J7040; Q9967; A4216; C1751; C1769; C1894; J2405; U0003

== ENCOUNTER 2019-12-08 07:58 | Inpatient (IN) | payer MEDICARE, OTHER, SELFPAY ==
[2019-12-08] VITALS (29 sets, daily range): BP systolic 91–177; BP diastolic 59–134; PULSE 53–127; RESP 14–30; TEMP 36.2–37.1; O2SAT 92–100; BMI 30.7; BMI 35.4
--- NOTE | 2019-12-08 08:20 | EKG12_ITS ---
Test Reason : FATIGUE Blood Pressure : / mmHG Vent. Rate : 118 BPM Atrial Rate : 141 BPM P-R Int : 000 ms QRS Dur : 090 ms QT Int : 334 ms P-R-T Axes : 000 031 020 degrees QTc Int : 468 ms Atrial fibrillation with rapid ventricular response Abnormal ECG Confirmed by ONEIL JULES, LORA ([id number]), food editor STANLEY PRECIADO ([id number]) on 12/14/2019 10:28:57 AM Referred By: CORBY Confirmed By:LORA RIGGS MD
--- NOTE | 2019-12-08 08:40 | ED.RN ---
heart rate irratic, 110's to 160's. dr kourtney mendes
[2019-12-08] MEDS: dilTIAZem 25 MG/5 ML Vial 20 MG IV BOLUS (08:42)
[2019-12-08 08:43] LABS: Absolute Lymphocyte Count 0.86 X10^3/uL (0.83-4.51); Absolute Neutrophil Count 3.3 X10^3/uL (2.0-7.7); Basophil# 0.01 X10^3/uL; Basophil% 0.2 % (0-1); Eosinophil# 0.11 X10^3/uL; Eosinophils% 2.3 % (0-5); Hematocrit 32.4 % (37-47); Hemoglobin 10.6 g/dL (12.0-15.0); Lymphocyte # 0.86 X10^3/ul (4.0); Lymphocyte % 18.3 % (19-41); Mean Corp Hgb Conc 32.7 g/dL (32-36); Mean Corpuscular Hgb 30.9 pg (27.0-32.0); Mean Corpuscular Volume 94.5 fL (81-99); Monocyte# 0.38 X10^3/uL; Monocyte% 8.1 % (0-10); NRBC Flagged by Analyzer 0 % (0-5); Neutrophil # 3.31 X10^3/uL (2.7-7.7); Neutrophil % 70.7 % (47-70); Platelet Count 193 K/mm3 (150-450); RBC Distribution Width CV 13.5 % (11.6-14.6); RBC Distribution Width SD 47.1 fl (35.1-43.9); Red Blood Count 3.43 M/mm3 (4.2-5.4); White Blood Count 4.7 K/mm3 (4.4-11.0)
--- NOTE | 2019-12-08 08:47 | RAD_ITS ---
STUDY: X-RAY CHEST REASON FOR EXAM: Female, 74 years old. WEAKNESS, FATIGUE, RECENTLY STARTED ON NEW CARDIAC MEDS -- HX OF HTN AND HEART CATH TECHNIQUE: Single AP portable view of the chest. COMPARISON: Comparison is made with prior study dated 11/05/2019. FINDINGS: EKG electrodes are seen. The lungs are clear and expanded. There is no demonstrated pleural abnormality. There is mild cardiac enlargement. Normal mediastinum and derek. There is prominence of the pulmonary hilar arteries without peripheral pulmonary vascular congestion, suggesting pulmonary hypertension. There is atherosclerotic calcification of the aortic arch with tortuosity. Prior vertebroplasty of a lower dorsal vertebrae without loss of height. Normal visualized ribs, clavicles, and shoulders. There is no demonstrated abnormality of the visualized soft tissue structures of the upper abdomen. RAD/Chest 1 View (Portable) IMPRESSION: Prominent enlargement of the central pulmonary arteries. Electronically Signed: Nik Guzman, at 9:02 EDT , Service support ,
--- NOTE | 2019-12-08 08:51 | ED.RN ---
heart rate remains irregular, rate improved.
[2019-12-08 09:00] LABS: Anion Gap 5 (5-15); BUN 14 mg/dL (7-18); BUN/Creat Ratio 19.1 RATIO (10-20); Calcium,Total 8.7 mg/dL (8.5-10.1); Chloride 110 mmol/L (98-107); Creatinine, Serum 0.73 mg/dL (0.55-1.02); D-Dimer Quantitative (DVT/PE) 2.01 FEU/ug/m (0.27-0.49); EST Glomerular Filtration Rate 82 mL/min (>60); Est Glom Filt Rate - Afr Amer 100 mL/min (>60); Estimated Creatinine Clearance 50.19 ml/min; Glucose 102 mg/dL (74-106); Potassium 4.4 mmol/L (3.5-5.1); Sodium Level 140 mmol/L (136-145)
--- NOTE | 2019-12-08 09:00 | CT_ITS ---
STUDY: CTA CHEST REASON FOR EXAM: Female, 74 years old. CHEST PAIN, WEAKNESS, ELEVATED D-DIMER, STARTED NEW CARDIAC MEDS RECENTLY RADIATION DOSAGE (If Supplied By Facility): CTDIvol = ( 16.54 ) mGy, DLP = ( 391.60 ) mGycm TECHNIQUE: The examination was performed with the intravenous administration of IV 100mL Isovue-370. Post-processing of the angiographic images was performed, with multiplanar reformation and 3D reconstruction. Individualized dose optimization techniques were used for this CT. COMPARISON: None. FINDINGS: Normal enhancement of the main pulmonary artery and right and left pulmonary arteries. Normal enhancement of the bilateral peripheral pulmonary arteries. There is no demonstrated pulmonary embolism. Normal thoracic aorta and visualized great vessels. There is no demonstrated aortic dissection. There is cardiomegaly. Enlargement of the pulmonary arteries bilaterally. Coronary artery calcification. Normal mediastinum. Normal hilar regions. Normal visualized trachea and bronchi. The lungs are well expanded. There is evidence of scarring in the medial aspect of the left upper lobe. Linear scarring in the posterior medial segment of the right lower lobe. No mass lesion is seen Normal pleura. Normal chest wall structures. There are degenerative changes of thoracic spine. Almost complete collapse of the T9 or T10 vertebrae. 50% loss of height of the L1 vertebrae. Normal visualized upper abdomen. CT/CTA Chest W/WO Contrast IMPRESSION: Enlargement of the central pulmonary arteries. No evidence of pulmonary embolism. Cardiomegaly. Electronically Signed: Nik Guzman, at 9:46 EDT , Service support ,
[2019-12-08 09:02] LABS: BNP,B-Type NATRIURETIC PEPTIDE 917.7 pg/mL (0-100)
--- NOTE | 2019-12-08 09:07 | ED.RN ---
veins above iv site red, edematous after cardizem dr oconnell aware
[2019-12-08 09:10] LABS: Mucous, Urine 0 SEEN /hpf (<or=2+); Red Blood Cells-Urine 0 SEEN /hpf (0-5)
--- NOTE | 2019-12-08 09:29 | ED.VISSUMM ---
- ER Visit Summary Date of Service: 12/08/19 Chief Complaint: [Not feeling well] History of Present Illness: The patient is a 74 F [presents to the emergency department with 2-week history of generalized weakness and shortness of breath with activity. Patient states that 2 weeks ago she had a heart catheterization and a HANNY. Patient states that she has mitral valve prolapse. Patient states that no coronary artery disease was noted that would require any type of intervention. Patient also with history of A. fib. Patient not currently anticoagulated. She denies fever or cough. Patient states that she was started on slow release nitro 2 weeks ago and she takes it twice a day. Patient complains of increased shortness of breath with activity and exertion. She denies recent travel or surgery. No history of PE or DVT.] Physical Examination: [HEENT-PERRLA, EOMI. Cranial nerves II through XII grossly intact. TMs clear. Mucous membranes moist. No adenopathy. Cardiovascular-irregularly irregular with a 2 out of 6 systolic ejection murmur noted. Patient is slightly tachycardic with heart rate in the low 100s Lungs-clear to auscultation, chest wall stable without crepitus or subcu emphysema Abdomen-normoactive bowel sounds, soft, nontender, no rebound or rigidity, no peritoneal signs. Extremities-intact ?4, normal range of motion, normal pulses, atraumatic] Test Results: [EKG obtained showed atrial fibrillation with a ventricular rate of 118 bpm. CBC with it showing a 4.7, hemoglobin 10.6, hematocrit 32, platelets 193. Troponin less than 0.015. BNP was 918. D-dimer was 2.01. CT scan of the chest was negative for PE or dissection. Chest x-ray initially showed some prominent congestion of central pulmonary arteries. Emergency Department Course and Treatment: [Patient received Cardizem 20 mg IV bolus. Patient placed on night monitor. IV line established.] Treatment Plan: [Patient case discussed with hospitalist.] Disposition: [Admit] Impression: [A. fib RVR CHF Pulmonary hypertension] This note was generated with [employer] software. It may contain incorrect words, spelling, and punctuation that were not noted in review of the chart prior to signing ED Disposition - Plan for ED Patient: Referrals: Cassius Monaco Chi, MD [Primary Care Provider] -
[2019-12-08 09:36] LABS: Color, Urine Yellow (Yellow); Glucose, Dipstick Normal (Normal); Ketone-Dipstick Negative (Negative); Leukocyte Esterase-Dipstick 100 /ul (Negative); Nitrite-Dipstick Negative (Negative); Occult Blood-Urine Negative /ul (Negative); Protein-Dipstick Negative (Negative); Specific Gravity, Urine 1.015 (1.002-1.030); Urine Bilirubin Dipstick Negative (Negative); Urine Clarity Sl. Cloudy (Clear); Urine Urobilinogen Normal (Normal)
[2019-12-08 09:45] LABS: Bacteria 1+ /hpf (None Seen); Squamous Epithelial Cells - UA 0-5 SEEN /hpf (5-10); White Blood Cells 10-25 SEEN /hpf (0-5)
[2019-12-08] MEDS: Ensure Clear 120 ML Liquid PO ×3 (14:07→21:28)
--- NOTE | 2019-12-08 15:07 | PCM.HP.STD ---
<Victor Hugo Casas - Last Filed: 12/08/19 15:07> Problem List (1) Atrial fibrillation with RVR Status: Acute (2) Severe mitral regurgitation Status: Chronic (3) Moderate to severe pulmonary hypertension Status: Chronic (4) HTN (hypertension) Status: Chronic (5) Mixed hyperlipidemia Status: Chronic (6) Paroxysmal atrial fibrillation Status: Chronic History of Present Illness Date of Admission: 12/08/19 Chief Complaint: fatigue The patient is a 74 year old F with past medical history of paroxysmal atrial fibrillation, mitral valve prolapse, moderate to severe pulmonary hypertension, who presented to the emergency room with complaints of weakness and inability to tolerate physical exertion, mild shortness of breath. She had a heart catheterization approximately 2 weeks ago and was not found to have any coronary occlusive disease. She does have significant pulmonary hypertension and mitral valve prolapse. Since then she states she has been increasingly short of breath and weak, inability to stand and walk without significant weakness. Patient came to the emergency room was found to have atrial fibrillation with rapid ventricular response. She was given a bolus of IV Cardizem and had improvement in her heart rate. In the past 2 weeks she has felt some racing heart occasionally. She has not had chest pain, pressure, tightness, or heaviness. She denies lightheadedness or dizziness. [] Past Medical History Past Medical History (Chronic Problems): Chronic Problems (Last Updated 10/17/19 @ 14:41 by Altagracia Jenkins) History of right and left heart catheterization (Chronic 11/16/19) Normal LV size, wall motion,and systolic function. Non obstructive coronary arteries. The patient has pulmonary hypertension which is moderate. RECOMMENDATIONS: D/c plavix; increase imdur to 30mg po bid and titrate up from there. Start Hydralazine 10mg po bid and titrate up from there. BP check in 2 weeks. If pt continues to have TERRAZAS despite optimized BP, will consider referral for MR repair. Per FLORES @ [facility] ,11/16/2019 History of transesophageal echocardiography (HANNY) (Chronic 11/16/19) Severe mitral regurgitation (Chronic) Moderate to severe pulmonary hypertension (Chronic) Nonrheumatic mitral (valve) insufficiency (Chronic) Secondary pulmonary hypertension (Chronic) History of left heart catheterization (Chronic 06/12/17) normal coronaries per [facility] 11/21/2013 and also per [facility] 06/12/17 @ [facility] per Dr. Keating HTN (hypertension) (Chronic) Mixed hyperlipidemia (Chronic) Paroxysmal atrial fibrillation (Chronic) Syncope and collapse (Chronic) Bradycardia (Chronic) Medical History: Medical History (Last Updated 10/17/19 @ 14:41 by Altagracia Jenkins) Chest pain (Acute) R07.9 Severe mitral regurgitation (Chronic) I34.0 Moderate to severe pulmonary hypertension (Chronic) I27.20 Nonrheumatic mitral (valve) insufficiency (Chronic) I34.0 Secondary pulmonary hypertension (Chronic) Costochondritis (Resolved) M94.0 HTN (hypertension) (Chronic) I10 Mixed hyperlipidemia (Chronic) E78.2 Paroxysmal atrial fibrillation (Chronic) I48.0 Syncope and collapse (Chronic) R55 Bradycardia (Chronic) R00.1 GERD (gastroesophageal reflux disease) K21.9 Vertigo R42 bilateral feet surgery Allergies piroxicam Allergy (Verified 12/08/19 11:57) Unknown BLEEDING ULCER AFTER ONE CAPSULE adhesive tape Adverse Reaction (Verified 12/08/19 11:57) Rash Home Medications: Ambulatory Orders Medication Instructions Recorded furosemide 40 mg tablet 40 mg PO QDAY #30 tab 06/12/17 lisinopril 40 mg tablet 40 mg PO QDAY #90 tab 05/25/19 alendronate 70 mg tablet 70 mg PO QWEEK 06/02/19 carvedilol 25 mg tablet 25 mg PO BID #180 tab 06/02/19 ergocalciferol (vitamin D2) 1,250 1,250 mcg PO QMONTH 06/02/19 mcg (50,000 unit) capsule potassium chloride 20 mEq 20 meq PO DAILY 06/02/19 tablet,extended release pravastatin 40 mg tablet 40 mg PO QHS #90 tab 11/07/19 isosorbide mononitrate 30 mg 30 mg PO BID #60 tab 11/22/19 tablet,extended release 24 hr Calcium Carbonate [Elemental 600 mg PO BID 12/08/19 Calcium] Surgical History: Surgical History (Last Updated 11/16/19 @ 13:27 by Altagracia Jenkins) History of right and left heart catheterization (Chronic) Onset Date: 11/16/19 Z98.890 Normal LV size, wall motion,and systolic function. Non obstructive coronary arteries. The patient has pulmonary hypertension which is moderate. RECOMMENDATIONS: D/c plavix; increase imdur to 30mg po bid and titrate up from there. Start Hydralazine 10mg po bid and titrate up from there. BP check in 2 weeks. If pt continues to have TERRAZAS despite optimized BP, will consider referral for MR repair. Per FLORES @ [facility] ,11/16/2019 History of left heart catheterization (Chronic) Onset Date: 06/12/17 Z98.890 normal coronaries per [facility] 11/21/2013 and also per [facility] 06/12/17 @ [facility] per Dr. Keating History of knee replacement, total Z96.659 Left 04/08/16; Right 09/04/15 History of hysterectomy Z98.890, Z90.710 History of tonsillectomy Z98.890, Z90.89 H/O: hysterectomy Z90.710 History of carpal tunnel release Z98.890 History of tonsillectomy Z90.89 Right TKA 09/04/15 Surgical History: hysterectomy, tonsillectomy, - - Foot surgery. Psychiatric History: No pertinent psych hx [employer] History: No pertinent [employer] history Smoking Status: Never smoker - *Family History Maternal Family History: Family History (Last Reviewed 12/08/19 @ 15:10 by Victor Hugo BROCK PA) Mother 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 Father CAD (coronary artery disease) Myocardial infarction, Onset Age: 69 Brother 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 Heart disease Myocardial infarction Pacemaker History Items: No pertinent history Paternal Family History: Family History (Last Reviewed 12/08/19 @ 15:10 by Victor Hugo BROCK PA) Mother 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 Father CAD (coronary artery disease) Myocardial infarction, Onset Age: 69 Brother 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 Heart disease Myocardial infarction Pacemaker History Items: No pertinent history Review of Systems Constitutional: Reports: Weakness, Fatigue. Denies: Chills, Fever, Weight Change HEENT: Denies: Head Aches, Sinus Congestion, Sinus Drainage Cardiovascular: Reports: Palpitations. Denies: Chest Pain, Chest Pressure, Chest Tightness, Edema, Heaviness, Light Headedness, Orthopnea, Paroxysmal Noc. Dyspnea, Syncope Respiratory: Reports: Shortness of Breath, Shortness of breath upon exertion. Denies: Cough, Shortness of breath at rest, Sputum production, Wheezing Gastrointestinal: Denies: Abdominal Pain, Diarrhea, Nausea, Vomiting Genitourinary: Denies: Dysuria, Frequency, Urgency Musculoskeletal: Denies: Joint Pain, Joint Tenderness Skin: Denies: Rash, Wounds Neurological: Denies: Numbness, Tingling, Focal weakness Psychiatric: Denies: Anxiety, Depression, Homicidal Ideations, Suicidal Ideations Hematologic/ Lymphatic: Denies: Easy Bruising, Easy Bleeding VTE Information - Inpt Only VTE Present on Admission: No VTE Mechan Device Prophylaxis: None VTE Pharm Prophylaxis ordered?: Yes Patient Problems: Active and Suspected Problems (Last Updated 10/17/19 @ 14:41 by Altagracia Jenkins) Atrial fibrillation with RVR (Acute) - Physical Exam Vitals/I&O's: Vital Signs Temp Pulse Resp BP Pulse Ox 98.6 F 77 18 147/97 H 95 12/08/19 12:13 12/08/19 12:30 12/08/19 12:13 12/08/19 12:13 12/08/19 12:13 Oxygen Delivery Method Room Air Weight: 163 lb 9.328 oz Body Mass Index (BMI) 35.4 General: Alert, Oriented x3, Cooperative HEENT: Atraumatic, PERRLA, EOMI, Normocephalic Neck: Supple, No JVD, Negative Carotid Bruits Lungs: Clear to auscultation, Normal air movement Cardiovascular: No murmurs, Irregular Rate Abdomen: Bowel Sounds Present, Soft, Non Tender Extremities: No edema, Capillary Refill Less than 3 Seconds Skin: No rashes, No breakdown Musculoskeletal: No Tenderness to Palpation of Joints or Extremities Neurological: Cranial nerves II-XII grossly intact Psych/Mental Status: Normal Affect, Appropriate, Alert and oriented to time, place, person, mood and affect Laboratory Results 12/08/19 08:33: WBC 4.7, RBC 3.43 L, Hgb 10.6 L, Hct 32.4 L, MCV 94.5, MCH 30.9, MCHC 32.7, RDW Std Deviation 47.1 H, RDW Coeff of Oralia 13.5, Plt Count 193, MPV 9.0, Immature Gran % (Auto) 0.400, Neut % (Auto) 70.7 H, Lymph % (Auto) 18.3 L, Mcduffie % (Auto) 8.1, Eos % (Auto) 2.3, Baso % (Auto) 0.2, Absolute Neuts (auto) 3.3, Absolute Lymphs (auto) 0.86, Nucleated RBC % 0 12/08/19 08:33: D-Dimer Quant (PE/DVT) 2.01 H* 12/08/19 08:33: Sodium 140, Potassium 4.4, Chloride 110 H, Carbon Dioxide 25.0, Anion Gap 5, BUN 14, Creatinine 0.73, Estim Creat Clear Calc 50.19, Est GFR (MDRD) Af Amer 100, Est GFR (MDRD) Non-Af 82, BUN/Creatinine Ratio 19.1, Glucose 102, Calcium 8.7, Troponin I < 0.015 12/08/19 08:33: B-Natriuretic Peptide 917.7 H 12/08/19 09:00: Urine Color Yellow, Urine Clarity Sl. Cloudy, Urine pH 6.0, Ur Specific [place] 1.015, Urine Protein Negative, Urine Glucose (UA) Normal, Urine Ketones Negative, Urine Occult Blood Negative, Urine Nitrite Negative, Urine Bilirubin Negative, Urine Urobilinogen Normal, Ur Leukocyte Esterase 100 H, Urine RBC 0 SEEN, Urine WBC 10-25 SEEN, Ur Squamous Epith Cells 0-5 SEEN, Urine Bacteria 1+, Urine Mucus 0 SEEN Current Medications Acetaminophen (Tylenol) 650 mg PO Q6H PRN PRN PRN Reason: Pain Score 1-10/Temp > 100.7 F Carvedilol (Coreg) 25 mg PO BID YONG Enoxaparin Sodium (Lovenox) 70 mg SC Q12@0600,1800 YONG Furosemide (Lasix) 40 mg IV BID@1000,1800 YONG Sodium Chloride () 250 mls @ 15 mls/hr IV .[id number] PRN PRN Reason: Saline Flush Sodium Chloride () 250 mls @ 15 mls/hr IV .[id number] PRN PRN Reason: Additional IVPB Infusion Lisinopril (Zestril) 40 mg PO DAILY [facility] Nutritional Formula (Lactose Free) (Ensure Clear) 120 ml PO 4X/DAY [facility] Last Admin: 12/08/19 14:07 Dose: 120 ml Documented by: Ondansetron HCl (Zofran) 4 mg IV Q8H PRN PRN PRN Reason: NAUSEA/VOMITING Pravastatin Sodium (Pravachol) 40 mg PO QHS [facility] Sodium Chloride () 10 - 40 ml IV UD PRN PRN Reason: SALINE FLUSH Assessment/Plan All Active Problems (Last Updated 10/17/19 @ 14:41 by Altagracia Jenkins) Atrial fibrillation with RVR (Acute) Chest pain (Acute) Costochondritis (Resolved) Abnormal cardiovascular stress test (Resolved) Chest pain (Resolved) 1. Paroxysmal atrial fibrillation with rapid ventricular response-improved with IV Cardizem. Continue Coreg. Monitor on telemetry overnight. Patient had cardiac catheterization approximately 2 weeks ago with no occlusive coronary disease. Troponin is negative. 2. Mild diastolic congestive heart failure exacerbation complicated by moderate to severe pulmonary hypertension-we will place patient on IV Lasix. BNP is elevated. She has no increased oxygen demand at this time. She does have significant shortness of breath. Chest x-ray demonstrates cardiomegaly. Will defer echocardiogram as she recently had a HANNY showing EF of 65%, left atrium severely enlarged, 2+ MVI, RVSP 23. D-dimer was elevated however CT of the chest does not demonstrate emboli. It did show enlargement of central pulmonary arteries. 3. Hyperlipidemia-statin 4. Chronic normocytic anemia-trend. 5. Mitral valve prolapse-complicating numbers 1 and 2-has been told in the past that she may need surgery. She recently had a HANNY which showed 2+ MVI. Will defer further work-up at this time. May need referral for surgical evaluation in the near future as an outpatient. DVT prophylaxis: Patient will be started on anticoagulation for A. fib. For now therapeutic Lovenox will be administered. This patient was seen by Victor Hugo Casas PA-C under the supervision of Doctor Lora. <Cassandra Paulino - Last Filed: 12/08/19 17:09> History of Present Illness The patient is a 74 year old F [] Past Medical History Medical History: Medical History (Last Updated 10/17/19 @ 14:41 by Altagracia Jenkins) Chest pain (Acute) R07.9 Severe mitral regurgitation (Chronic) I34.0 Moderate to severe pulmonary hypertension (Chronic) I27.20 Nonrheumatic mitral (valve) insufficiency (Chronic) I34.0 Secondary pulmonary hypertension (Chronic) Costochondritis (Resolved) M94.0 HTN (hypertension) (Chronic) I10 Mixed hyperlipidemia (Chronic) E78.2 Paroxysmal atrial fibrillation (Chronic) I48.0 Syncope and collapse (Chronic) R55 Bradycardia (Chronic) R00.1 GERD (gastroesophageal reflux disease) K21.9 Vertigo R42 bilateral feet surgery Allergies piroxicam Allergy (Verified 12/08/19 11:57) Unknown BLEEDING ULCER AFTER ONE CAPSULE adhesive tape Adverse Reaction (Verified 12/08/19 11:57) Rash Surgical History: Surgical History (Last Updated 11/16/19 @ 13:27 by Altagracia Jenkins) History of right and left heart catheterization (Chronic) Onset Date: 11/16/19 Z98.890 Normal LV size, wall motion,and systolic function. Non obstructive coronary arteries. The patient has pulmonary hypertension which is moderate. RECOMMENDATIONS: D/c plavix; increase imdur to 30mg po bid and titrate up from there. Start Hydralazine 10mg po bid and titrate up from there. BP check in 2 weeks. If pt continues to have TERRAZAS despite optimized BP, will consider referral for MR repair. Per FLORES @ [facility] ,11/16/2019 History of left heart catheterization (Chronic) Onset Date: 06/12/17 Z98.890 normal coronaries per [facility] 11/21/2013 and also per [facility] 06/12/17 @ [facility] per Dr. Keating History of knee replacement, total Z96.659 Left 04/08/16; Right 09/04/15 History of hysterectomy Z98.890, Z90.710 History of tonsillectomy Z98.890, Z90.89 H/O: hysterectomy Z90.710 History of carpal tunnel release Z98.890 History of tonsillectomy Z90.89 Right TKA 09/04/15 - *Family History Maternal Family History: Family History (Last Reviewed 12/08/19 @ 15:10 by Victor Hugo BROCK PA) Mother 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 Father CAD (coronary artery disease) Myocardial infarction, Onset Age: 69 Brother 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 Heart disease Myocardial infarction Pacemaker Paternal Family History: Family History (Last Reviewed 12/08/19 @ 15:10 by Victor Hugo BROCK, PA) Mother 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 Father CAD (coronary artery disease) Myocardial infarction, Onset Age: 69 Brother 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 Heart disease Myocardial infarction Pacemaker - Physical Exam Vitals/I&O's: Vital Signs Temp Pulse Resp BP Pulse Ox 97.9 F 125 H 23 H 155/85 H 92 12/08/19 16:05 12/08/19 16:25 12/08/19 16:25 12/08/19 16:25 12/08/19 16:25 Oxygen Delivery Method Room Air Weight: 74.2 kg Body Mass Index (BMI) 35.4 Laboratory Results 12/08/19 08:33: WBC 4.7, RBC 3.43 L, Hgb 10.6 L, Hct 32.4 L, MCV 94.5, MCH 30.9, MCHC 32.7, RDW Std Deviation 47.1 H, RDW Coeff of Oralia 13.5, Plt Count 193, MPV 9.0, Immature Gran % (Auto) 0.400, Neut % (Auto) 70.7 H, Lymph % (Auto) 18.3 L, Mcduffie % (Auto) 8.1, Eos % (Auto) 2.3, Baso % (Auto) 0.2, Absolute Neuts (auto) 3.3, Absolute Lymphs (auto) 0.86, Nucleated RBC % 0 12/08/19 08:33: D-Dimer Quant (PE/DVT) 2.01 H* 12/08/19 08:33: Sodium 140, Potassium 4.4, Chloride 110 H, Carbon Dioxide 25.0, Anion Gap 5, BUN 14, Creatinine 0.73, Estim Creat Clear Calc 50.19, Est GFR (MDRD) Af Amer 100, Est GFR (MDRD) Non-Af 82, BUN/Creatinine Ratio 19.1, Glucose 102, Calcium 8.7, Troponin I < 0.015 12/08/19 08:33: B-Natriuretic Peptide 917.7 H 12/08/19 09:00: Urine Color Yellow, Urine Clarity Sl. Cloudy, Urine pH 6.0, Ur Specific [place] 1.015, Urine Protein Negative, Urine Glucose (UA) Normal, Urine Ketones Negative, Urine Occult Blood Negative, Urine Nitrite Negative, Urine Bilirubin Negative, Urine Urobilinogen Normal, Ur Leukocyte Esterase 100 H, Urine RBC 0 SEEN, Urine WBC 10-25 SEEN, Ur Squamous Epith Cells 0-5 SEEN, Urine Bacteria 1+, Urine Mucus 0 SEEN Current Medications Acetaminophen (Tylenol) 650 mg PO Q6H PRN PRN PRN Reason: Pain Score 1-10/Temp > 100.7 F Carvedilol (Coreg) 25 mg PO BID OYNG Enoxaparin Sodium (Lovenox) 70 mg SC Q12@0600,1800 YONG Furosemide (Lasix) 40 mg IV BID@1000,1800 YONG Sodium Chloride () 250 mls @ 15 mls/hr IV .[id number] PRN PRN Reason: Saline Flush Sodium Chloride () 250 mls @ 15 mls/hr IV .[id number] PRN PRN Reason: Additional IVPB Infusion Diltiazem HCl 125 mg/ Dextrose 125 mls @ 5 mls/hr IV .Q25H YONG; Protocol Last Admin: 12/08/19 16:25 Dose: 5 mg/hr, 5 mls/hr Documented by: Lisinopril (Zestril) 40 mg PO DAILY YONG Nutritional Formula (Lactose Free) (Ensure Clear) 120 ml PO 4X/DAY YONG Last Admin: 12/08/19 14:07 Dose: 120 ml Documented by: Ondansetron HCl (Zofran) 4 mg IV Q8H PRN PRN PRN Reason: NAUSEA/VOMITING Pravastatin Sodium (Pravachol) 40 mg PO QHS YONG Sodium Chloride () 10 - 40 ml IV UD PRN PRN Reason: SALINE FLUSH Assessment/Plan This patient was seen in conjunction with DELMY King. I have independently interviewed and examined the patient and reviewed pertinent historical, laboratory, and other data. Please refer to DELMY King note for his patient's presentation, findings, and recommendations. I have reviewed and his note and concur with his documentation 74-year-old female past medical history of paroxysmal atrial fibrillation, mitral valve prolapse, severe pulmonary pretension was admitted with shortness of breath and fatigue. She denied any orthopnea or PND. In the ED, patient had A. fib with RVR. She received a bolus of Cardizem. Work-up for possible PE was negative with negative CTA. Physical Exam: Gen: Comfortable, not pale, not jaundiced CVS:HS I +II, regular, no murmurs RESP: CTA GI: BS present and normal, soft, nontender, no palpable organs EXT:Trace bilateral leg edema ASSESSMENT: 1. A. fib with RVR 2. Acute on chronic diastolic CHF/moderate to severe pulmonary pretension 3. Hyperlipidemia 4. Mitral valve prolapse Code status - DNR-CCA Plan: Continue on therapeutic Lovenox, Cardizem drip CHF protocol, Lasix IV I discussed goals of care with patient. I went on to explain in details the various types of CODE STATUS-full code, DNR CCA, DNR CC. Patient does not want to be aggressively resuscitated, rather wants to be comfortable. Opted for DNR-CCA. Time spent discussing CODE STATUS 18 minutes Inpatient E&M: 14342 Init Hosp L3 Procedures: 88070 Advncd Care Plan 30 Min
[2019-12-08] MEDS: Furosemide 40 MG/4 ML Vial IV (18:23)
[2019-12-08] MEDS: Enoxaparin 80 MG/0.8 ML Syringe 70 MG SC (18:27)
[2019-12-08] MEDS: Pravastatin 40 MG Tablet PO (21:29)
[2019-12-08] MEDS: MELATONIN 10 MG TABLET PO (21:29)
[2019-12-08] MEDS: Carvedilol 25 MG Tablet PO (21:29)
[2019-12-09] VITALS (27 sets, daily range): BP systolic 97–138; BP diastolic 49–100; PULSE 64–94; RESP 16–23; TEMP 36.6–37.3; O2SAT 93–99
[2019-12-09] MEDS: Enoxaparin 80 MG/0.8 ML Syringe 70 MG SC (04:52)
[2019-12-09 06:20] LABS: Absolute Lymphocyte Count 0.77 X10^3/uL (0.83-4.51); Absolute Neutrophil Count 2.6 X10^3/uL (2.0-7.7); Basophil# 0.02 X10^3/uL; Basophil% 0.5 % (0-1); Eosinophil# 0.14 X10^3/uL; Eosinophils% 3.6 % (0-5); Hematocrit 32.2 % (37-47); Lymphocyte # 0.77 X10^3/ul (4.0); Lymphocyte % 19.6 % (19-41); Mean Corp Hgb Conc 31.1 g/dL (32-36); Mean Corpuscular Hgb 29.5 pg (27.0-32.0); Mean Platelet Vol. 8.9 fl (6.2-12.0); Monocyte# 0.43 X10^3/uL; NRBC Flagged by Analyzer 0 % (0-5); Neutrophil # 2.55 X10^3/uL (2.7-7.7); Platelet Count 179 K/mm3 (150-450); RBC Distribution Width CV 13.6 % (11.6-14.6); Red Blood Count 3.39 M/mm3 (4.2-5.4); White Blood Count 3.9 K/mm3 (4.4-11.0)
[2019-12-09 06:43] LABS: ALB/GLOB Ratio 1.3 RATIO (0.9-2.4); AST(SGOT) 30 U/L (15-37); Alanine Aminotransfer ALT/SGPT 34 U/L (13-56); Albumin, Serum 3.6 g/dL (3.2-5.0); Alkaline Phosphatase 67 U/L (45-117); Anion Gap 7 (5-15); BUN 13 mg/dL (7-18); Calcium,Total 8.5 mg/dL (8.5-10.1); Chloride 108 mmol/L (98-107); Creatinine, Serum 0.65 mg/dL (0.55-1.02); EST Glomerular Filtration Rate 95 mL/min (>60); Est Glom Filt Rate - Afr Amer 114 mL/min (>60); Estimated Creatinine Clearance 56.88 ml/min; Globulin 2.8 g/dL (2.2-4.2); Glucose 95 mg/dL (74-106); Potassium 3.5 mmol/L (3.5-5.1); Protein, Total 6.4 g/dL (6.4-8.2); Sodium Level 143 mmol/L (136-145)
[2019-12-09] MEDS: Carvedilol 25 MG Tablet PO (09:15)
[2019-12-09] MEDS: Furosemide 40 MG/4 ML Vial IV (09:15)
[2019-12-09] MEDS: Lisinopril 40 MG Tablet PO (09:15)
[2019-12-09] MEDS: 0.9% Saline Lock 10 ML Syringe IV ×3 (09:16→20:10)
--- NOTE | 2019-12-09 12:06 | CASEMGMT ---
Addendum entered by Marita Farah 12/09/19 15:42: AD info to pt at this time. Pt voices no further questions/concerns/needs at this time. Ananda HOBSON CM Original Note: JAZLYN NASSAR assessment: Face to Face with patient for initial transition planning/care coordination assessment. JAZLYN NASSAR introduced self and role at [facility], pt voices understanding and consents to assessment at this time. Pt is lying in bed in no distress at this time. Pt is A/Ox4 at this time and answers all questions appropriately at this time. Care providers, pharmacy, and demographics verified at this time. Presentation: Weakness, fatigue, recently started on new cardiac meds Admitting dx: CHF/Afib PCP: Was Carlos Enrique but states has appt with [facility] physicians in a few weeks but cannot remember name of physician Specialists: cameron Pierce Preferred Pharmacy: [facility] Insurance: MCR A/B, MMO Prescription Benefit: MCR D Living Will/HPOA: Pt states does not have LW/HPOA but would like AD info at this time. Graciela SW aware, voices understanding. LNOK: Shiv Gomez, son Living Arrangements: Pt states lives alone in mobile home with 3 steps in and states no concerns at home at this time. Pt states is independent with ADL's. Transportation: Pt drives self and states no transportation concerns at this time. DME/HHC: Pt states no current DME or need for any at this time. Pt states has had HHC in the past s/p knee replacement but has not been to a SNF. Pt states no concerns with going home at time of discharge. 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 Pt states does not smoke or drink ETOH. Pt states no further concerns/needs at this time. CM to follow for any further discharge planning/needs. Advised pt to ask for CM if any further questions/concerns/needs arise, voices understanding. Pt Goal: Home Plan: Home Ananda HOBSON CM
[2019-12-09] MEDS: Ensure Clear 120 ML Liquid PO ×3 (13:08→22:45)
--- NOTE | 2019-12-09 13:21 | PCM.PN.HOSP ---
<Victor Hugo Casas - Last Filed: 12/09/19 13:21> Patient Problems: Active and Suspected Problems (Last Updated 10/17/19 @ 14:41 by Altagracia Jenkins) Atrial fibrillation with RVR (Acute) Subjective: Afib RVR Objective: rate controlled however still in a fib. No CP. No SOB. Trace LE edema. Vitals/I&O's: Vital Signs Temp Pulse Resp BP Pulse Ox 98.7 F 77 20 H 111/77 95 12/09/19 13:00 12/09/19 13:00 12/09/19 13:00 12/09/19 13:00 12/09/19 13:00 Oxygen Delivery Method Room Air Weight: 160 lb 14.999 oz Body Mass Index (BMI) 35.4 Intake and Output for Last 24 Hours 12/07/19 12/08/19 12/09/19 23:59 23:59 23:59 Intake Total 78.33 / 303.33 810.01 / 810.01 Output Total 2550 / 2550 Balance 78.33 / -996.67 -1739.99 / -1739.99 General: Alert, Oriented x3, Cooperative HEENT: Atraumatic, PERRLA, EOMI, Normocephalic Neck: Supple, No JVD, Negative Carotid Bruits Lungs: Clear to auscultation, Normal air movement Cardiovascular: Irregular Rate, Murmur Abdomen: Bowel Sounds Present, Soft, Non Tender Extremities: No edema, Capillary Refill Less than 3 Seconds Skin: No rashes, No breakdown Musculoskeletal: No Tenderness to Palpation of Joints or Extremities Neurological: Cranial nerves II-XII grossly intact Psych/Mental Status: Normal Affect, Appropriate, Alert and oriented to time, place, person, mood and affect Laboratory Results 12/09/19 06:03: WBC 3.9 L, RBC 3.39 L, Hgb 10.0 L, Hct 32.2 L, MCV 95.0, MCH 29.5, MCHC 31.1 L, RDW Std Deviation 47.0 H, RDW Coeff of Oralia 13.6, Plt Count 179, MPV 8.9, Immature Gran % (Auto) 0.300, Neut % (Auto) 65.0, Lymph % (Auto) 19.6, Juab % (Auto) 11.0 H, Eos % (Auto) 3.6, Baso % (Auto) 0.5, Absolute Neuts (auto) 2.6, Absolute Lymphs (auto) 0.77 L, Nucleated RBC % 0 12/09/19 06:03: Sodium 143, Potassium 3.5, Chloride 108 H, Carbon Dioxide 28.0, Anion Gap 7, BUN 13, Creatinine 0.65, Estim Creat Clear Calc 56.88, Est GFR (MDRD) Af Amer 114, Est GFR (MDRD) Non-Af 95, BUN/Creatinine Ratio 20.0, Glucose 95, Calcium 8.5, Total Bilirubin 0.80, AST 30, ALT 34, Alkaline Phosphatase 67, Total Protein 6.4, Albumin 3.6, Globulin 2.8, Albumin/Globulin Ratio 1.3 Current Medications Acetaminophen (Tylenol) 650 mg PO Q6H PRN PRN PRN Reason: Pain Score 1-10/Temp > 100.7 F Carvedilol (Coreg) 25 mg PO BID [facility] Last Admin: 12/09/19 09:15 Dose: 25 mg Documented by: Enoxaparin Sodium (Lovenox) 70 mg SC Q12@0600,1800 [facility] Last Admin: 12/09/19 04:52 Dose: 70 mg Documented by: Furosemide (Lasix) 40 mg IV BID@1000,1800 [facility] Last Admin: 12/09/19 09:15 Dose: 40 mg Documented by: Sodium Chloride () 250 mls @ 15 mls/hr IV .[id number] PRN PRN Reason: Saline Flush Sodium Chloride () 250 mls @ 15 mls/hr IV .[id number] PRN PRN Reason: Additional IVPB Infusion Diltiazem HCl 125 mg/ Dextrose 125 mls @ 5 mls/hr IV .Q25H [facility]; Protocol Last Titration: 12/09/19 13:00 Dose: 5 mg/hr, 5 mls/hr Documented by: Lisinopril (Zestril) 40 mg PO DAILY [facility] Last Admin: 12/09/19 09:15 Dose: 40 mg Documented by: Melatonin (Melatonin) 10 mg PO QHS PRN PRN Reason: sleep Last Admin: 12/08/19 21:29 Dose: 10 mg Documented by: Nutritional Formula (Lactose Free) (Ensure Clear) 120 ml PO 4X/DAY [facility] Last Admin: 12/09/19 13:08 Dose: 120 ml Documented by: Ondansetron HCl (Zofran) 4 mg IV Q8H PRN PRN PRN Reason: NAUSEA/VOMITING Pravastatin Sodium (Pravachol) 40 mg PO QHS [facility] Last Admin: 12/08/19 21:29 Dose: 40 mg Documented by: Sodium Chloride () 10 - 40 ml IV UD PRN PRN Reason: SALINE FLUSH Last Admin: 12/09/19 09:16 Dose: 20 ml Documented by: STROKE Vital Signs/Narrative: Vital Signs Temp Pulse Resp BP BP Pulse Ox 12/09/19 13:00 98.7 F 77 20 H 111/77 95 12/09/19 12:00 78 19 H 99/65 96 12/09/19 11:00 69 17 109/55 L 96 12/09/19 10:00 78 18 106/49 L 96 Medical Necessity - Tobacco Use Smoking Status: Never smoker Assessment/Plan All Active Problems (Last Updated 10/17/19 @ 14:41 by Altagracia Jenkins) Atrial fibrillation with RVR (Acute) Chest pain (Acute) Costochondritis (Resolved) Abnormal cardiovascular stress test (Resolved) Chest pain (Resolved) 1. Paroxysmal atrial fibrillation with rapid ventricular response-improved overnight on IV cardizem and with home coreg. cardiology consulted. Recent echo which showed 2+ MVI. Will defer further work-up at this time. May need referral for surgical evaluation in the near future as an outpatient. 2. Mild diastolic congestive heart failure exacerbation complicated by moderate to severe pulmonary hypertension-improved. lasix to PO. 3. Chronic normocytic anemia-trend. 4. Mitral valve prolapse-complicating numbers 1 and 2-has been told in the past that she may need surgery. She recently had a HANNY as above. DVT prophylaxis: therapeutic Lovenox This patient was seen by Victor Hugo Casas PA-C under the supervision of Doctor Paulino. <Cassandra Paulino - Last Filed: 12/09/19 16:21> Vitals/I&O's: Vital Signs Temp Pulse Resp BP Pulse Ox 98.7 F 77 20 H 111/77 95 12/09/19 13:00 12/09/19 13:00 12/09/19 13:00 12/09/19 13:00 12/09/19 13:00 Oxygen Delivery Method Room Air Weight: 73 kg Body Mass Index (BMI) 35.4 Intake and Output for Last 24 Hours 12/07/19 12/08/19 12/09/19 23:59 23:59 23:59 Intake Total 78.33 / 303.33 810.01 / 810.01 Output Total 2550 / 2550 Balance 78.33 / -996.67 -1739.99 / -1739.99 Laboratory Results 12/09/19 06:03: WBC 3.9 L, RBC 3.39 L, Hgb 10.0 L, Hct 32.2 L, MCV 95.0, MCH 29.5, MCHC 31.1 L, RDW Std Deviation 47.0 H, RDW Coeff of Oralia 13.6, Plt Count 179, MPV 8.9, Immature Gran % (Auto) 0.300, Neut % (Auto) 65.0, Lymph % (Auto) 19.6, Juab % (Auto) 11.0 H, Eos % (Auto) 3.6, Baso % (Auto) 0.5, Absolute Neuts (auto) 2.6, Absolute Lymphs (auto) 0.77 L, Nucleated RBC % 0 12/09/19 06:03: Sodium 143, Potassium 3.5, Chloride 108 H, Carbon Dioxide 28.0, Anion Gap 7, BUN 13, Creatinine 0.65, Estim Creat Clear Calc 56.88, Est GFR (MDRD) Af Amer 114, Est GFR (MDRD) Non-Af 95, BUN/Creatinine Ratio 20.0, Glucose 95, Calcium 8.5, Total Bilirubin 0.80, AST 30, ALT 34, Alkaline Phosphatase 67, Total Protein 6.4, Albumin 3.6, Globulin 2.8, Albumin/Globulin Ratio 1.3 12/09/19 06:03: Magnesium 2.0 Current Medications Acetaminophen (Tylenol) 650 mg PO Q6H PRN PRN PRN Reason: Pain Score 1-10/Temp > 100.7 F Carvedilol (Coreg) 25 mg PO BID [facility] Last Admin: 12/09/19 09:15 Dose: 25 mg Documented by: Enoxaparin Sodium (Lovenox) 70 mg SC Q12@0600,1800 [facility] Last Admin: 12/09/19 04:52 Dose: 70 mg Documented by: Furosemide (Lasix) 40 mg IV BID@1000,1800 [facility] Last Admin: 12/09/19 09:15 Dose: 40 mg Documented by: Sodium Chloride () 250 mls @ 15 mls/hr IV .[id number] PRN PRN Reason: Saline Flush Sodium Chloride () 250 mls @ 15 mls/hr IV .[id number] PRN PRN Reason: Additional IVPB Infusion Diltiazem HCl 125 mg/ Dextrose 125 mls @ 5 mls/hr IV .Q25H [facility]; Protocol Last Titration: 12/09/19 13:00 Dose: 5 mg/hr, 5 mls/hr Documented by: Lisinopril (Zestril) 40 mg PO DAILY [facility] Last Admin: 12/09/19 09:15 Dose: 40 mg Documented by: Melatonin (Melatonin) 10 mg PO QHS PRN PRN Reason: sleep Last Admin: 12/08/19 21:29 Dose: 10 mg Documented by: Nutritional Formula (Lactose Free) (Ensure Clear) 120 ml PO 4X/DAY [facility] Last Admin: 12/09/19 13:08 Dose: 120 ml Documented by: Ondansetron HCl (Zofran) 4 mg IV Q8H PRN PRN PRN Reason: NAUSEA/VOMITING Pravastatin Sodium (Pravachol) 40 mg PO QHS [facility] Last Admin: 12/08/19 21:29 Dose: 40 mg Documented by: Sodium Chloride () 10 - 40 ml IV UD PRN PRN Reason: SALINE FLUSH Last Admin: 12/09/19 09:16 Dose: 20 ml Documented by: STROKE Vital Signs/Narrative: Vital Signs Temp Pulse Resp BP BP Pulse Ox 12/09/19 13:00 98.7 F 77 20 H 111/77 95 12/09/19 12:00 78 19 H 99/65 96 Assessment/Plan This patient was seen in conjunction with DELMY King. I have independently interviewed and examined the patient and reviewed pertinent historical, laboratory, and other data. Please refer to DELMY King note for his patient's presentation, findings, and recommendations. I have reviewed and his note and concur with his documentation Patient was seen and examined. Heart rate better controlled. Cardizem being weaned down. Physical Exam: Gen: Comfortable, not pale, not jaundiced CVS:HS I +II, regular, no murmurs RESP: CTA GI: BS present and normal, soft, nontender, no palpable organs EXT:Trace bilateral leg edema ASSESSMENT: 1. A. fib with RVR 2. Acute on chronic diastolic CHF/moderate to severe pulmonary pretension 3. Hyperlipidemia 4. Mitral valve prolapse Plan: Cardiology consult Continue with oral Lasix Repeat blood work in a.m. Inpatient E&M: 72698 Subs Hosp L2
[2019-12-09] MEDS: Metoprolol Tartrate 100 MG Tablet PO (18:38)
[2019-12-09] MEDS: Ondansetron 4 MG/2 ML Vial IV (20:10)
[2019-12-09] MEDS: APIXABAN 5 MG TABLET PO (22:46)
[2019-12-09] MEDS: Pravastatin 40 MG Tablet PO (22:46)
[2019-12-10 03:08] VITALS: BP 127/76; PULSE 91; RESP 19; TEMP 37.2; O2SAT 95
[2019-12-10 03:52] VITALS: PULSE 86
[2019-12-10 08:45] VITALS: BP 142/62; PULSE 67; RESP 16; TEMP 36.9; O2SAT 100
[2019-12-10] MEDS: Ensure Clear 120 ML Liquid PO (08:52)
[2019-12-10 08:53] VITALS: BP 142/62; PULSE 67
[2019-12-10] MEDS: APIXABAN 5 MG TABLET PO (08:53)
[2019-12-10] MEDS: Furosemide 40 MG Tablet PO (08:53)
[2019-12-10] MEDS: Metoprolol Tartrate 100 MG Tablet PO (08:53)
[2019-12-10] MEDS: Lisinopril 40 MG Tablet PO (08:54)
--- NOTE | 2019-12-10 09:51 | CM.UR ---
Addendum entered by Honey Brito 12/10/19 10:53: Spoke with patient. States she can afford $31 per month. Instructed her on texting for voucher for first month free. Verb understanding and appreciation. Silver Brito RN, CCM. Addendum entered by Honey Brito 12/10/19 10:49: spoke with pharmacist at [facility]. States the xarelto is only $31 per month. Silver Brito RN, CCM. Original Note: Apixaban was ordered for afib. RX was sent over yesterday. Called [facility] at this time. States Apixaban is $329.[address] Paulino and DELMY Chavarria of cost. DELMY Rosario sent over rx for xarelto to see if it was any better. Said if not any more affordable--will have to do lovenox bridge to coumadin. Silver Brito RN, CCM.
--- NOTE | 2019-12-10 10:56 | DCINST_ITS ---
- Discharge Diagnoses Current Active Problems: Current Active and Chronic Problems (Last Updated 10/17/19 @ 14:41 by Altagracia Jenkins) Atrial fibrillation with RVR (Acute) You will use the following diet at home:: Cardiac Your food should be the consistency of: Regular Your liquids should be the consistency of: Regular/Thin Discharge Activity: Return to Normal Activity Allergies/Adverse Reactions: Allergies piroxicam Allergy (Verified 12/08/19 11:57) Unknown BLEEDING ULCER AFTER ONE CAPSULE adhesive tape Adverse Reaction (Verified 12/08/19 11:57) Rash Medications to take at Discharge furosemide 40 mg tablet 40 mg PO QDAY #30 tab 06/12/17 lisinopril 40 mg tablet 40 mg PO QDAY #90 tab 05/25/19 alendronate 70 mg tablet 70 mg PO QWEEK 06/02/19 ergocalciferol (vitamin D2) 1,250 mcg (50,000 unit) capsule 1,250 mcg PO QMONTH 06/02/19 potassium chloride 20 mEq tablet,extended release 20 meq PO DAILY 06/02/19 pravastatin 40 mg tablet 40 mg PO QHS #90 tab 11/07/19 isosorbide mononitrate 30 mg tablet,extended release 24 hr 30 mg PO BID #60 tab 11/22/19 Calcium Carbonate [Calcium] 600 mg PO BID 12/08/19 Melatonin 10 mg PO QHS PRN 12/08/19 Metoprolol Tartrate [Lopressor (beta shikha)] 100 mg PO BID #60 tab 12/10/19 Rivaroxaban [Xarelto] 20 mg PO DAILY #30 tab 12/10/19 The following prescriptions were given: Metoprolol Tartrate [Lopressor (beta shikha)] 100 mg PO BID #60 tab Transmission Status: [id number] Rivaroxaban [Xarelto] 20 mg PO DAILY #30 tab Transmission Status: Received by [id number] Primary Care Physician: Cassius Monaco Chi, MD [Primary Care Provider] - Please follow up with your Primary Care Physician in: 1-2 weeks Test Results: Test results from this visit will be discussed in further detail at your follow- up appointment, if applicable. Please Follow Up With: Debby Blanco MD When: as directed Proposed Discharge Date: 12/10/19
[2019-12-10 12:03] VITALS: BP 145/82; PULSE 93; RESP 18; TEMP 37.2; O2SAT 98
--- NOTE | 2019-12-10 13:14 | PCM.DC.SUM ---
<Victor Hugo Casas - Last Filed: 12/10/19 13:14> Discharge Date and Diagnosis Date of Admission: 12/08/19 Date of Discharge: 12/10/19 - Primary Discharge Diagnosis Acute Problems: Active Problems (Last Updated 10/17/19 @ 14:41 by Altagracia Jenkins) paroxysmal Atrial fibrillation with RVR (Acute) Acute on chronic diastolic CHF, pulmonary hypertension 2+ MVI - Secondary Discharge Diagnosis Chronic Problems: Chronic Problems (Last Updated 10/17/19 @ 14:41 by Altagracia Jenkins) History of right and left heart catheterization (Chronic 11/16/19) Normal LV size, wall motion,and systolic function. Non obstructive coronary arteries. The patient has pulmonary hypertension which is moderate. RECOMMENDATIONS: D/c plavix; increase imdur to 30mg po bid and titrate up from there. Start Hydralazine 10mg po bid and titrate up from there. BP check in 2 weeks. If pt continues to have TERRAZAS despite optimized BP, will consider referral for MR repair. Per FLORES @ [facility] ,11/16/2019 History of transesophageal echocardiography (HANNY) (Chronic 11/16/19) Severe mitral regurgitation (Chronic) Moderate to severe pulmonary hypertension (Chronic) Nonrheumatic mitral (valve) insufficiency (Chronic) Secondary pulmonary hypertension (Chronic) History of left heart catheterization (Chronic 06/12/17) normal coronaries per [facility] 11/21/2013 and also per [facility] 06/12/17 @ [facility] per Dr. Keating HTN (hypertension) (Chronic) Mixed hyperlipidemia (Chronic) Paroxysmal atrial fibrillation (Chronic) Syncope and collapse (Chronic) Bradycardia (Chronic) Hospital Course and Treatment Imaging Results: RAD/Chest 1 View (Portable) IMPRESSION: Prominent enlargement of the central pulmonary arteries. CT/CTA Chest W/WO Contrast IMPRESSION: Enlargement of the central pulmonary arteries. No evidence of pulmonary embolism. Cardiomegaly. Consults: Cardiology - [place] Operations: None Procedures: None Summary of Care Provided: Hospital course: The patient is a 74 year old F with past medical history of paroxysmal atrial fibrillation, mitral valve disease, who presented to the emergency room with increased shortness of breath, fatigue, and occasional palpitations. The patient was found to be in atrial fibrillation with rapid ventricular response. She was given a Cardizem bolus and had good improvement in her rate. She was admitted to the PCU and placed on telemetry. With her shortness of breath she also had an elevated BNP and was felt to have a mild exacerbation of underlying diastolic congestive heart failure. D-dimer was elevated and a CT of the chest was obtained which demonstrated no pulmonary embolism, cardiomegaly was present, enlargement of central pulmonary arteries is present as well. The patient had a heart catheterization about 2 weeks ago did not have any occlusive disease, had mdoerate pulmonary htn, preserved EF 65%, moderate mitral valve insufficiency. The patient was given IV Lasix. She had good improvement in her shortness of breath. She redeveloped tachycardia and was placed on a Cardizem drip. She had good control with Cardizem drip. Cardiology was consulted and changed her home Coreg to metoprolol. She had good control with metoprolol instead of Coreg without further additional medications. Patient was also placed on Xarelto for DVT prophylaxis. She was discharged home in stable condition. She will need to follow-up with cardiology as directed, follow-up with her PCP in 1 to 2 weeks. This patient was seen by Victor Hugo Casas PA-C under the supervision of Doctor Paulino. [] - Physical Exam Vitals/I&O's: Vital Signs Temp Pulse Resp BP Pulse Ox 98.9 F 93 18 145/82 H 98 12/10/19 12:03 12/10/19 12:03 12/10/19 12:03 12/10/19 12:03 12/10/19 12:03 Oxygen Delivery Method Room Air Weight: 159 lb 6.307 oz Body Mass Index (BMI) 35.4 Intake and Output for Last 24 Hours 12/08/19 12/09/19 12/10/19 23:59 23:59 23:59 Intake Total 78.33 / 303.33 1319.72 / 1319.72 352 / 352 Output Total 2950 / 2950 300 / 300 Balance 78.33 / -996.67 -1630.28 / -1630.28 52 / 52 General: Alert, Oriented x3, Cooperative HEENT: Atraumatic, PERRLA, EOMI, Normocephalic Neck: Supple, No JVD, Negative Carotid Bruits Lungs: Clear to auscultation, Normal air movement Cardiovascular: Regular rate, No murmurs Abdomen: Bowel Sounds Present, Soft, Non Tender Extremities: No edema, Capillary Refill Less than 3 Seconds Skin: No rashes, No breakdown Musculoskeletal: No Tenderness to Palpation of Joints or Extremities Neurological: Cranial nerves II-XII grossly intact Psych/Mental Status: Normal Affect, Appropriate, Alert and oriented to time, place, person, mood and affect Laboratory Results 12/09/19 06:03: Magnesium 2.0 Current Medications Acetaminophen (Tylenol) 650 mg PO Q6H PRN PRN PRN Reason: Pain Score 1-10/Temp > 100.7 F Apixaban (Eliquis) 5 mg PO BID [facility] Last Admin: 12/10/19 08:53 Dose: 5 mg Documented by: Furosemide (Lasix) 40 mg PO DAILY [facility] Last Admin: 12/10/19 08:53 Dose: 40 mg Documented by: Sodium Chloride () 250 mls @ 15 mls/hr IV .[id number] PRN PRN Reason: Saline Flush Sodium Chloride () 250 mls @ 15 mls/hr IV .[id number] PRN PRN Reason: Additional IVPB Infusion Lisinopril (Zestril) 40 mg PO DAILY [facility] Last Admin: 12/10/19 08:54 Dose: 40 mg Documented by: Melatonin (Melatonin) 10 mg PO QHS PRN PRN Reason: sleep Last Admin: 12/08/19 21:29 Dose: 10 mg Documented by: Metoprolol Tartrate (Lopressor (Beta Mary)) 100 mg PO BID [facility] Last Admin: 12/10/19 08:53 Dose: 100 mg Documented by: Nutritional Formula (Lactose Free) (Ensure Clear) 120 ml PO 4X/DAY [facility] Last Admin: 12/10/19 08:52 Dose: 120 ml Documented by: Ondansetron HCl (Zofran) 4 mg IV Q8H PRN PRN PRN Reason: NAUSEA/VOMITING Last Admin: 12/09/19 20:10 Dose: 4 mg Documented by: Pravastatin Sodium (Pravachol) 40 mg PO QHS [facility] Last Admin: 12/09/19 22:46 Dose: 40 mg Documented by: Sodium Chloride () 10 - 40 ml IV UD PRN PRN Reason: SALINE FLUSH Last Admin: 12/09/19 20:10 Dose: 10 ml Documented by: Discharge Diet: Low fat/ Low Cholesterol, 2000 mg Sodium Diet Discharge Activity: Return to Normal Activity Home Medications: Medications to take at Discharge furosemide 40 mg tablet 40 mg PO QDAY #30 tab 06/12/17 lisinopril 40 mg tablet 40 mg PO QDAY #90 tab 05/25/19 alendronate 70 mg tablet 70 mg PO QWEEK 06/02/19 ergocalciferol (vitamin D2) 1,250 mcg (50,000 unit) capsule 1,250 mcg PO QMONTH 06/02/19 potassium chloride 20 mEq tablet,extended release 20 meq PO DAILY 06/02/19 pravastatin 40 mg tablet 40 mg PO QHS #90 tab 11/07/19 isosorbide mononitrate 30 mg tablet,extended release 24 hr 30 mg PO BID #60 tab 11/22/19 Calcium Carbonate [Calcium] 600 mg PO BID 12/08/19 Melatonin 10 mg PO QHS PRN 12/08/19 Metoprolol Tartrate [Lopressor (beta mary)] 100 mg PO BID #60 tab 12/10/19 Rivaroxaban [Xarelto] 20 mg PO DAILY #30 tab 12/10/19 Following Prescriptions Were Given to Patient: Metoprolol Tartrate [Lopressor (beta mary)] 100 mg PO BID #60 tab Transmission Status: Received by [facility]/pharmacy #[id number] Rivaroxaban [Xarelto] 20 mg PO DAILY #30 tab Transmission Status: [id number] Primary Care Physician: Cassius Monaco Chi, MD [Primary Care Provider] - Please follow up with your Primary Care Physician in: 1-2 weeks Please Follow Up With: Debby Blanco MD When: as directed Disposition: Home Minutes spent on discharge:: 35 Patient Condition:: Stable Medical Necessity - Tobacco Use Smoking Status: Never smoker Meaningful Use Info Meaningful Use Diagnoses (Choose all that apply): CHF - AMI/Post PCI/Angioplasty Documented LVEF (%): 65 - CHF ELEANOR/ARB ordered at discharge?: Yes Documented LVEF (%): 65 <Cassandra Paulino - Last Filed: 12/10/19 18:25> Discharge Date and Diagnosis - Secondary Discharge Diagnosis Chronic Problems: Chronic Problems (Last Updated 10/17/19 @ 14:41 by Altagracia Jenkins) History of right and left heart catheterization (Chronic 11/16/19) Normal LV size, wall motion,and systolic function. Non obstructive coronary arteries. The patient has pulmonary hypertension which is moderate. RECOMMENDATIONS: D/c plavix; increase imdur to 30mg po bid and titrate up from there. Start Hydralazine 10mg po bid and titrate up from there. BP check in 2 weeks. If pt continues to have TERRAZAS despite optimized BP, will consider referral for MR repair. Per DJN @ [facility] ,11/16/2019 History of transesophageal echocardiography (HANNY) (Chronic 11/16/19) Severe mitral regurgitation (Chronic) Moderate to severe pulmonary hypertension (Chronic) Nonrheumatic mitral (valve) insufficiency (Chronic) Secondary pulmonary hypertension (Chronic) History of left heart catheterization (Chronic 06/12/17) normal coronaries per [facility] 11/21/2013 and also per [facility] 06/12/17 @ [facility] per Dr. Keating HTN (hypertension) (Chronic) Mixed hyperlipidemia (Chronic) Paroxysmal atrial fibrillation (Chronic) Syncope and collapse (Chronic) Bradycardia (Chronic) Hospital Course and Treatment Summary of Care Provided: This patient was seen in conjunction with DELMY King. I have independently interviewed and examined the patient and reviewed pertinent historical, laboratory, and other data. Please refer to DELMY King note for his patient's presentation, findings, and recommendations. I have reviewed and his note and concur with his documentation 74 y/o with PMHx of paroxysmal atrial fibrillation admitted with progressive SOB, fatigue and palpitations. She found to be in A. fib with RVR, started on Cardizem and maintained on carvedilol. Her BNP was elevated. Patient was managed on IV Lasix. Cardiology consulted. Carvedilol switched to metoprolol with good effect. Patient was discharged on oral Lasix metoprolol and Xarelto. Follow-up with your primary care doctor and cardiology within 2 weeks. On the day of discharge, patient was seen and examined. Denied any new complaints. Physical Exam: Gen: Comfortable, not pale, not jaundiced CVS:HS I +II, regular, no murmurs RESP: CTA GI: BS present and normal, soft, nontender, no palpable organs EXT:Trace bilateral leg edema - Physical Exam Vitals/I&O's: Vital Signs Temp Pulse Resp BP Pulse Ox 98.9 F 93 18 145/82 H 98 12/10/19 12:03 12/10/19 12:03 12/10/19 12:03 12/10/19 12:03 12/10/19 12:03 Oxygen Delivery Method Room Air Weight: 72.3 kg Body Mass Index (BMI) 35.4 Intake and Output for Last 24 Hours 12/08/19 12/09/19 12/10/19 23:59 23:59 23:59 Intake Total 78.33 / 303.33 1319.72 / 1319.72 352 / 352 Output Total 2950 / 2950 300 / 300 Balance 78.33 / -996.67 -1630.28 / -1630.28 52 / 52 Inpatient E&M: [id number] [facility]
--- NOTE | 2019-12-10 14:15 | CON.PCM_ITS ---
Reason for Consult Date of Consultation: 12/10/19 Reason for Consultation: Atrial fibrillation with rapid ventricular response History of Present Illness: The patient is a 74 year old F with past medical history of paroxysmal atrial fibrillation, mitral valve prolapse, moderate to severe pulmonary hypertension, who presented to the emergency room with complaints of weakness and inability to tolerate physical exertion, mild shortness of breath. She had a heart catheterization approximately 2 weeks ago and was not found to have any coronary occlusive disease. She does have significant pulmonary hypertension and mitral valve prolapse. Since then she states she has been increasingly short of breath and weak, inability to stand and walk without significant weakness. Patient came to the emergency room was found to have atrial fibrillation with rapid ventricular response. She was given a bolus of IV Cardizem and had improvement in her heart rate. In the past 2 weeks she has felt some racing heart occasionally. She has not had chest pain, pressure, tightness, or heaviness. She denies lightheadedness or dizziness. Patient's Coreg was discontinued and metoprolol was started. Her IV Cardizem was discontinued last evening. Patient was not seen by me personally but I did discuss with Dr. Paulino. She was doing well this morning. Her heart rate responded well to the medication changes and she was discharged home today. Past Medical History Allergies/Adverse Reactions: Allergies piroxicam Allergy (Verified 12/08/19 11:57) Unknown BLEEDING ULCER AFTER ONE CAPSULE adhesive tape Adverse Reaction (Verified 12/08/19 11:57) Rash Home Medications: Ambulatory Orders Medication Instructions Recorded furosemide 40 mg tablet 40 mg PO QDAY #30 tab 06/12/17 lisinopril 40 mg tablet 40 mg PO QDAY #90 tab 05/25/19 alendronate 70 mg tablet 70 mg PO QWEEK 06/02/19 ergocalciferol (vitamin D2) 1,250 1,250 mcg PO QMONTH 06/02/19 mcg (50,000 unit) capsule potassium chloride 20 mEq 20 meq PO DAILY 06/02/19 tablet,extended release pravastatin 40 mg tablet 40 mg PO QHS #90 tab 11/07/19 isosorbide mononitrate 30 mg 30 mg PO BID #60 tab 11/22/19 tablet,extended release 24 hr Calcium Carbonate [Calcium] 600 mg PO BID 12/08/19 Melatonin 10 mg PO QHS PRN 09/03/20 Metoprolol Tartrate [Lopressor 100 mg PO BID #60 tab 12/10/19 (beta shikha)] Rivaroxaban [Xarelto] 20 mg PO DAILY #30 tab 12/10/19 Past Medical History (Chronic Problems): Chronic Problems (Last Updated 10/17/19 @ 14:41 by Altagracia Jenkins) History of right and left heart catheterization (Chronic 11/16/19) Normal LV size, wall motion,and systolic function. Non obstructive coronary arteries. The patient has pulmonary hypertension which is moderate. RECOMM ENDATIONS: D/c plavix; increase imdur to 30mg po bid and titrate up from there. Start Hydralazine 10mg po bid and titrate up from there. BP check in 2 weeks. If pt continues to have TERRAZAS despite optimized BP, will consider referral for MR repair. Per FLORES @ [facility] ,11/16/2019 History of transesophageal echocardiography (HANNY) (Chronic 11/16/19) Severe mitral regurgitation (Chronic) Moderate to severe pulmonary hypertension (Chronic) Nonrheumatic mitral (valve) insufficiency (Chronic) Secondary pulmonary hypertension (Chronic) History of left heart catheterization (Chronic 06/12/17) normal coronaries per [facility] 11/21/[address] [facility] 06/12/[address] [facility] per Dr. Keating HTN (hypertension) (Chronic) Mixed hyperlipidemia (Chronic) Paroxysmal atrial fibrillation (Chronic) Syncope and collapse (Chronic) Bradycardia (Chronic) Surgical History: hysterectomy, tonsillectomy, - - Foot surgery. 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 history - *Family History Maternal Family History: Family History (Last Reviewed 12/08/19 @ 15:10 by Victor Hugo BROCK PA) Mother 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 Father CAD (coronary artery disease) Myocardial infarction, Onset Age: 69 Brother 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 Heart disease Myocardial infarction Pacemaker History Items: No pertinent history Paternal Family History: Family History (Last Reviewed 12/08/19 @ 15:10 by Victor Hugo BROCK PA) Mother 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 Father CAD (coronary artery disease) Myocardial infarction, Onset Age: 69 Brother 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 Heart disease Myocardial infarction Pacemaker History Items: No pertinent history Smoking Status: Never smoker Objective: Vital Signs Temp Pulse Resp BP Pulse Ox 98.9 F 93 18 145/82 H 98 12/10/19 12:03 12/10/19 12:03 12/10/19 12:03 12/10/19 12:03 12/10/19 12:03 Oxygen Delivery Method Room Air Weight: 159 lb 6.307 oz Body Mass Index (BMI) 35.4 Intake and Output for Last 24 Hours 12/08/19 12/09/19 12/10/19 23:59 23:59 23:59 Intake Total 78.33 / 303.33 1319.72 / 1319.72 352 / 352 Output Total 2950 / 2950 300 / 300 Balance 78.33 / -996.67 -1630.28 / -1630.28 52 / 52 Rhythm: EKG: ECHO: Stress Test: Cardiac Cath: PCI: CT Surgery: Holter monitor: EPS: PPM: CXR: Chest CT Scan: Assessment/Plan 1. Atrial fibrillation: Patient responded well to changing her beta-shikha to metoprolol. She has preserved EF. If her heart rate remains elevated we may have to add Cardizem as an outpatient. She will follow-up with me as an outpatient.
== END 2019-12-10 13:20 | disposition home or self-care (01) | DRG 308 ==
LOC: ED 08:40 → PCU 12-09 06:37
PROVIDERS: Physician Assistant; Admitting Provider Internal Medicine; Emergency Provider Emergency Medicine; PCP Family Medicine Geriatric Medicine; Visit Provider Internal Medicine
DX: I48.0 Paroxysmal atrial fibrillation (principal); I50.33 Acute on chronic diastolic (congestive) heart failure; I11.0 Hypertensive heart disease with heart failure; D64.9 Anemia, unspecified; E78.2 Mixed hyperlipidemia; I34.0 Nonrheumatic mitral (valve) insufficiency; Z66 Do not resuscitate; I27.29 Other secondary pulmonary hypertension; Z79.83 Long term (current) use of bisphosphonates; Z79.01 Long term (current) use of anticoagulants; Z82.49 Family history of ischemic heart disease and other diseases of the circulatory system; Z90.710 Acquired absence of both cervix and uterus; Z96.651 Presence of right artificial knee joint
CPT/HCPCS: 36415; 71045; 71275; 80048; 80053; 81001; 83735; 83880; 84484; 85025; 85379; 93005; 97802; 99285; Q9967; A4216; J1940; J2405

== ENCOUNTER → 2019-12-22 09:58 | Outpatient (CLI) | payer MEDICARE, OTHER, SELFPAY ==
[2019-12-08 11:19] VITALS: BMI 35.4
[2019-12-22 12:32] LABS: Absolute Lymphocyte Count 1.41 X10^3/uL (0.83-4.51); Absolute Neutrophil Count 3.3 X10^3/uL (2.0-7.7); Basophil# 0.02 X10^3/uL; Basophil% 0.4 % (0-1); Eosinophil# 0.14 X10^3/uL; Eosinophils% 2.6 % (0-5); Hematocrit 36.1 % (37-47); Hemoglobin 11.5 g/dL (12.0-15.0); Lymphocyte # 1.41 X10^3/ul (4.0); Lymphocyte % 26.3 % (19-41); Mean Corp Hgb Conc 31.9 g/dL (32-36); Mean Corpuscular Hgb 29.9 pg (27.0-32.0); Mean Platelet Vol. 9.2 fl (6.2-12.0); Monocyte# 0.45 X10^3/uL; Monocyte% 8.4 % (0-10); NRBC Flagged by Analyzer 0 % (0-5); Neutrophil # 3.33 X10^3/uL (2.7-7.7); Neutrophil % 62.1 % (47-70); Platelet Count 299 K/mm3 (150-450); RBC Distribution Width CV 13.4 % (11.6-14.6); RBC Distribution Width SD 46.2 fl (35.1-43.9); Red Blood Count 3.84 M/mm3 (4.2-5.4); White Blood Count 5.4 K/mm3 (4.4-11.0)
[2019-12-22 13:03] LABS: ALB/GLOB Ratio 1.2 RATIO (0.9-2.4); AST(SGOT) 23 U/L (15-37); Alanine Aminotransfer ALT/SGPT 20 U/L (13-56); Albumin, Serum 4.2 g/dL (3.2-5.0); Alkaline Phosphatase 88 U/L (45-117); Anion Gap 7 (5-15); BUN 25 mg/dL (7-18); BUN/Creat Ratio 24.8 RATIO (10-20); Calcium,Total 9.1 mg/dL (8.5-10.1); Chloride 103 mmol/L (98-107); Creatinine, Serum 1.01 mg/dL (0.55-1.02); EST Glomerular Filtration Rate 57 mL/min (>60); Est Glom Filt Rate - Afr Amer 69 mL/min (>60); Globulin 3.4 g/dL (2.2-4.2); Glucose 115 mg/dL (74-106); Potassium 4.4 mmol/L (3.5-5.1); Protein, Total 7.6 g/dL (6.4-8.2); Sodium Level 137 mmol/L (136-145); Thyroid Stim Hormone (TSH) 1.72 uIU/mL (0.358-3.74)
[2019-12-22 13:41] LABS: Vitamin D,25 Hydroxy 39.8 ng/mL
== END ==
PROVIDERS: PCP Family Medicine Geriatric Medicine; Visit Provider Family Medicine Geriatric Medicine
DX: I10 Essential (primary) hypertension (principal); E55.9 Vitamin D deficiency, unspecified
CPT/HCPCS: 36415; 80053; 82306; 84443; 85025

== ENCOUNTER 2020-01-30 09:34 | Outpatient (RCR) | payer MEDICARE, OTHER, SELFPAY ==
[2019-12-22 13:34] VITALS: BMI 34.6
[2020-01-27 13:40] LABS: International Normalized Ratio 2.3; Prothrombin Time (Protime)PT. 24.4 SECONDS (11.7-14.9)
[2020-01-30 10:22] LABS: International Normalized Ratio 3.1; Prothrombin Time (Protime)PT. 31.3 SECONDS (11.7-14.9)
== END 2020-01-30 18:00 | disposition home or self-care (01) ==
LOC: LAB 09:34
PROVIDERS: PCP Family Medicine Geriatric Medicine; Referring Provider Internal Medicine Cardiovascular Disease; Visit Provider Internal Medicine Cardiovascular Disease
DX: I48.91 Unspecified atrial fibrillation (principal); Z79.01 Long term (current) use of anticoagulants
CPT/HCPCS: 36415; 85610

== ENCOUNTER 2020-02-17 10:00 | Outpatient (RCR) | payer MEDICARE, OTHER, SELFPAY ==
[2019-12-22 13:34] VITALS: BMI 34.6
[2020-02-06 09:38] LABS: Prothrombin Time (Protime)PT. 57.9 SECONDS (11.7-14.9)
[2020-02-06 09:42] LABS: AST(SGOT) 26 U/L (15-37); Alanine Aminotransfer ALT/SGPT 20 U/L (13-56); Albumin, Serum 3.5 g/dL (3.2-5.0); Alkaline Phosphatase 71 U/L (45-117); Bilirubin, Direct 0.23 mg/dL (0.00-0.30); Cholesterol 115 mg/dL (200); Globulin 3.1 g/dL (2.2-4.2); High Density Lipoprotein 51 mg/dL; Protein, Total 6.6 g/dL (6.4-8.2); Triglycerides 70 mg/dL; Very Low Density Lipoprotein 14 mg/dL (5-40)
[2020-02-06 09:43] LABS: International Normalized Ratio 6.6
[2020-02-10 11:16] LABS: International Normalized Ratio 2.8; Prothrombin Time (Protime)PT. 28.8 SECONDS (11.7-14.9)
[2020-02-17 10:30] LABS: Prothrombin Time (Protime)PT. 30.7 SECONDS (11.7-14.9)
== END 2020-02-17 18:00 | disposition home or self-care (01) ==
LOC: LAB 10:00
PROVIDERS: PCP Family Medicine Geriatric Medicine; Referring Provider Internal Medicine Cardiovascular Disease; Visit Provider Internal Medicine Cardiovascular Disease
DX: I48.91 Unspecified atrial fibrillation (principal); Z79.01 Long term (current) use of anticoagulants; E78.2 Mixed hyperlipidemia
CPT/HCPCS: 36415; 80061; 80076; 85610

== ENCOUNTER → 2020-03-12 09:36 | Outpatient (CLI) | payer MEDICARE, OTHER, SELFPAY ==
[2019-12-22 13:34] VITALS: BMI 34.6
== END ==
PROVIDERS: PCP Family Medicine Geriatric Medicine; Referring Provider Internal Medicine Cardiovascular Disease; Visit Provider Internal Medicine Cardiovascular Disease
DX: I48.91 Unspecified atrial fibrillation (principal)
CPT/HCPCS: 36415; 85610; 93225; 93226

== ENCOUNTER 2020-03-12 09:54 | Outpatient (RCR) | payer MEDICARE, OTHER, SELFPAY ==
[2019-12-22 13:34] VITALS: BMI 34.6
[2020-03-12 10:46] LABS: International Normalized Ratio 2.8
== END 2020-03-12 18:00 | disposition home or self-care (01) ==
LOC: LAB 09:54
PROVIDERS: PCP Family Medicine Geriatric Medicine; Referring Provider Internal Medicine Cardiovascular Disease; Visit Provider Internal Medicine Cardiovascular Disease
DX: I48.91 Unspecified atrial fibrillation (principal); Z79.01 Long term (current) use of anticoagulants
CPT/HCPCS: 36415; 85610

== ENCOUNTER 2020-04-25 08:40 | Outpatient (RCR) | payer MEDICARE, OTHER, SELFPAY ==
[2019-12-22 13:34] VITALS: BMI 34.6
[2020-04-25 09:34] LABS: International Normalized Ratio 2.7; Prothrombin Time (Protime)PT. 28.4 SECONDS (11.7-14.9)
== END 2020-04-25 18:00 | disposition home or self-care (01) ==
LOC: LAB 08:40
PROVIDERS: PCP Family Medicine Geriatric Medicine; Referring Provider Internal Medicine Cardiovascular Disease; Visit Provider Internal Medicine Cardiovascular Disease
DX: I48.91 Unspecified atrial fibrillation (principal); Z79.01 Long term (current) use of anticoagulants
CPT/HCPCS: 36415; 85610

== ENCOUNTER 2020-05-25 08:36 | Outpatient (RCR) | payer MEDICARE, OTHER, SELFPAY ==
[2019-12-22 13:34] VITALS: BMI 34.6
[2020-05-25 09:39] LABS: International Normalized Ratio 2.1; Prothrombin Time (Protime)PT. 22.9 SECONDS (11.7-14.9)
== END 2020-05-25 18:00 | disposition home or self-care (01) ==
LOC: LAB 08:36
PROVIDERS: PCP Family Medicine Geriatric Medicine; Referring Provider Internal Medicine Cardiovascular Disease; Visit Provider Internal Medicine Cardiovascular Disease
DX: I48.91 Unspecified atrial fibrillation (principal); Z79.01 Long term (current) use of anticoagulants
CPT/HCPCS: 36415; 85610

== ENCOUNTER → 2020-05-28 16:32 | Outpatient (CLI) | payer MEDICARE, OTHER, SELFPAY ==
[2020-05-28 15:41] VITALS: BMI 34.2
[2020-05-28 17:32] LABS: Absolute Lymphocyte Count 1.36 X10^3/uL (0.83-4.51); Absolute Neutrophil Count 3.7 X10^3/uL (2.0-7.7); Basophil# 0.02 X10^3/uL; Basophil% 0.3 % (0-1); Eosinophil# 0.18 X10^3/uL; Eosinophils% 3.1 % (0-5); Hematocrit 32.1 % (37-47); Hemoglobin 9.8 g/dL (12.0-15.0); Lymphocyte # 1.36 X10^3/ul (4.0); Lymphocyte % 23.4 % (19-41); Mean Corp Hgb Conc 30.5 g/dL (32-36); Mean Corpuscular Hgb 27.2 pg (27.0-32.0); Mean Corpuscular Volume 89.2 fL (81-99); Mean Platelet Vol. 8.8 fl (6.2-12.0); Monocyte# 0.51 X10^3/uL; Monocyte% 8.8 % (0-10); NRBC Flagged by Analyzer 0 % (0-5); Neutrophil # 3.71 X10^3/uL (2.7-7.7); Neutrophil % 64.1 % (47-70); Platelet Count 254 K/mm3 (150-450); RBC Distribution Width SD 52.6 fl (35.1-43.9); White Blood Count 5.8 K/mm3 (4.4-11.0)
[2020-05-28 18:05] LABS: Anion Gap 8 (5-15); BUN 20 mg/dL (7-18); Calcium,Total 8.7 mg/dL (8.5-10.1); Chloride 102 mmol/L (98-107); Creatinine, Serum 0.95 mg/dL (0.55-1.02); EST Glomerular Filtration Rate 61 mL/min (>60); Est Glom Filt Rate - Afr Amer 74 mL/min (>60); Glucose 91 mg/dL (74-106); Potassium 3.5 mmol/L (3.5-5.1); Sodium Level 139 mmol/L (136-145)
[2020-05-28 18:08] LABS: BNP,B-Type NATRIURETIC PEPTIDE 821.2 pg/mL (0-100)
== END ==
PROVIDERS: Nurse Practitioner Family; PCP Family Medicine Geriatric Medicine; Referring Provider Internal Medicine Cardiovascular Disease; Visit Provider Internal Medicine Cardiovascular Disease
DX: I48.91 Unspecified atrial fibrillation (principal); I34.0 Nonrheumatic mitral (valve) insufficiency; I27.20 Pulmonary hypertension, unspecified; I10 Essential (primary) hypertension; R06.00 Dyspnea, unspecified
CPT/HCPCS: 36415; 80048; 83880; 85025

== ENCOUNTER → 2020-06-08 09:43 | Outpatient (CLI) | payer MEDICARE, OTHER, SELFPAY ==
[2020-05-28 15:41] VITALS: BMI 34.2
--- NOTE | 2020-06-08 09:46 | ECHOD_ITS ---
Reason For Study: Dyspnea, SOB Procedure This was a 2D Doppler, Color Flow transthoracic echocardiogram. The exam was of adequate technical quality. Exam performed in department. Left Ventricle Normal LV size. Left ventricular systolic function is normal. The estimated ejection fraction is 55 %. Unable to assess diastolic dysfunction. No regional wall motion abnormalities noted. Right Ventricle Moderately dilated right ventricle. Mild global right ventricular systolic dysfunction. Atria The left atrium is severely enlarged. The right atrium is severely enlarged. No doppler evidence for ASD. Mitral Valve Mild diffuse mitral valve thickening. There is mild mitral annular calcification. Moderately severe (3+) mitral valve insufficiency. Tricuspid Valve Poor coaptation of the tricuspid valve apparatus. Moderate (2+) tricuspid valve insufficiency. Right ventricular systolic pressure estimated to be 42 mmHg. Aortic Valve Trisinus/trileaflet aortic valve. Mild diffuse aortic valve thickening. Pulmonic Valve The pulmonic valve is not well visualized. Trivial pulmonic valve insufficiency. Great Vessels Normal sized aortic root. Pericardium/Pleural No pericardial effusion. MMode/2D Measurements & Calculations LVIDd: 3.7 cm IVSd: 1.0 cm Ao root diam: 2.9 cm LVIDs: 2.2 cm LVPWd: 1.2 cm RVDd: 3.9 cm FS: 38.7 % LAV(MOD-bp): 77.5 ml LVAd ap4: 20.6 cm2 SV(MOD-sp4): 30.5 ml LAV(MOD-bp) Indexed: 48.2 ml/m2 EDV(MOD-sp4): 55.2 ml LAV(MOD-sp2): 69.8 ml EDV(sp4-el): 55.5 ml LAV(MOD-sp4): 87.3 ml LVAs ap4: 12.4 cm2 ESV(MOD-sp4): 24.7 ml ESV(sp4-el): 24.6 ml EF(MOD-sp4): 55.3 % EF(sp4-el): 55.7 % SV(sp4-el): 30.9 ml LA A4 area: 25.7 cm2 LA dimension(2D): 5.7 cm RA A4 area: 26.9 cm2 Doppler Measurements & Calculations MV E max olesya: 124.0 cm/sec Ao V2 max: 185.0 cm/sec LV V1 max: 97.2 cm/sec Ao max P.7 mmHg LV V1 max P.8 mmHg Ao V2 mean: 136.4 cm/sec Ao mean P.0 mmHg Ao V2 VTI: 35.4 cm PA V2 max: 99.2 cm/sec TR max olesya: 311.1 cm/sec TR max P.7 mmHg Interpretation Summary Left ventricular systolic function is normal. The estimated ejection fraction is 55 %. Moderately dilated right ventricle. Mild global right ventricular systolic dysfunction. The left atrium is severely enlarged. The right atrium is severely enlarged. There is mild mitral annular calcification. Mild diffuse mitral valve thickening. Moderately severe (3+) mitral valve insufficiency. Poor coaptation of the tricuspid valve apparatus. Moderate (2+) tricuspid valve insufficiency. Mild diffuse aortic valve thickening. Trivial pulmonic valve insufficiency. Right ventricular systolic pressure estimated to be 42 mmHg. Unable to assess diastolic dysfunction. Ordering Physician: Ozzie Gilliland Referring Physician: Cassius Monaco Chi Performed By: Billie Gilliland, DAVID, RVT
== END ==
PROVIDERS: PCP Family Medicine Geriatric Medicine; Referring Provider Nurse Practitioner Family; Visit Provider Nurse Practitioner Family
DX: R06.00 Dyspnea, unspecified (principal); I48.0 Paroxysmal atrial fibrillation; R00.1 Bradycardia, unspecified; I27.20 Pulmonary hypertension, unspecified; I34.0 Nonrheumatic mitral (valve) insufficiency
CPT/HCPCS: 93225; 93226; 93306

== ENCOUNTER → 2020-06-28 15:43 | Outpatient (CLI) | payer MEDICARE, OTHER, SELFPAY ==
[2020-05-28 15:41] VITALS: BMI 34.2
[2020-06-28 17:05] LABS: Absolute Neutrophil Count 3.3 X10^3/uL (2.0-7.7); Basophil# 0.02 X10^3/uL; Basophil% 0.4 % (0-1); Eosinophil# 0.15 X10^3/uL; Eosinophils% 2.9 % (0-5); Hematocrit 31.6 % (37-47); Hemoglobin 9.9 g/dL (12.0-15.0); Mean Corp Hgb Conc 31.3 g/dL (32-36); Mean Corpuscular Hgb 28.3 pg (27.0-32.0); Mean Corpuscular Volume 90.3 fL (81-99); Mean Platelet Vol. 8.7 fl (6.2-12.0); Monocyte% 7.7 % (0-10); NRBC Flagged by Analyzer 0 % (0-5); Neutrophil # 3.32 X10^3/uL (2.7-7.7); Neutrophil % 63.8 % (47-70); Platelet Count 258 K/mm3 (150-450); RBC Distribution Width CV 15.7 % (11.6-14.6); RBC Distribution Width SD 51.6 fl (35.1-43.9); White Blood Count 5.2 K/mm3 (4.4-11.0)
[2020-06-28 17:08] LABS: Vitamin D,25 Hydroxy 25.7 ng/mL
[2020-06-28 17:20] LABS: ALB/GLOB Ratio 1.2 RATIO (0.9-2.4); AST(SGOT) 31 U/L (15-37); Alanine Aminotransfer ALT/SGPT 19 U/L (13-56); Alkaline Phosphatase 100 U/L (45-117); Anion Gap 3 (5-15); BUN 26 mg/dL (7-18); BUN/Creat Ratio 21.8 RATIO (10-20); Calcium,Total 8.9 mg/dL (8.5-10.1); Chloride 104 mmol/L (98-107); Creatinine, Serum 1.19 mg/dL (0.55-1.02); EST Glomerular Filtration Rate 47 mL/min (>60); Est Glom Filt Rate - Afr Amer 57 mL/min (>60); Globulin 3.2 g/dL (2.2-4.2); Glucose 92 mg/dL (74-106); Potassium 3.4 mmol/L (3.5-5.1); Protein, Total 7.2 g/dL (6.4-8.2); Sodium Level 139 mmol/L (136-145); Thyroid Stim Hormone (TSH) 1.06 uIU/mL (0.358-3.74)
== END ==
PROVIDERS: PCP Family Medicine Geriatric Medicine; Visit Provider Family Medicine Geriatric Medicine
DX: I10 Essential (primary) hypertension (principal); E55.9 Vitamin D deficiency, unspecified
CPT/HCPCS: 36415; 80053; 82306; 84443; 85025

== ENCOUNTER 2020-07-03 15:14 | Outpatient (RCR) | payer MEDICARE, OTHER, SELFPAY ==
[2020-05-28 15:41] VITALS: BMI 34.2
[2020-06-25 16:31] LABS: International Normalized Ratio 1.9; Prothrombin Time (Protime)PT. 21.2 SECONDS (11.7-14.9)
[2020-07-03 15:56] LABS: International Normalized Ratio 3.3; Prothrombin Time (Protime)PT. 32.4 SECONDS (11.7-14.9)
[2020-07-03 16:09] LABS: Anion Gap 7 (5-15); BUN 38 mg/dL (7-18); BUN/Creat Ratio 21.1 RATIO (10-20); Calcium,Total 9.3 mg/dL (8.5-10.1); Chloride 99 mmol/L (98-107); EST Glomerular Filtration Rate 29 mL/min (>60); Est Glom Filt Rate - Afr Amer 35 mL/min (>60); Glucose 98 mg/dL (74-106); Potassium 4.1 mmol/L (3.5-5.1); Sodium Level 135 mmol/L (136-145)
== END 2020-07-03 18:00 | disposition home or self-care (01) ==
LOC: LAB 15:14
PROVIDERS: Nurse Practitioner Family; PCP Family Medicine Geriatric Medicine; Referring Provider Internal Medicine Cardiovascular Disease; Visit Provider Internal Medicine Cardiovascular Disease
DX: I48.91 Unspecified atrial fibrillation (principal); Z79.01 Long term (current) use of anticoagulants; I34.0 Nonrheumatic mitral (valve) insufficiency; I50.9 Heart failure, unspecified
CPT/HCPCS: 36415; 80048; 85610

== ENCOUNTER 2020-07-24 14:24 | Outpatient (RCR) | payer MEDICARE, OTHER, SELFPAY ==
[2020-05-28 15:41] VITALS: BMI 34.2
[2020-07-10 16:13] LABS: International Normalized Ratio 3.2; Prothrombin Time (Protime)PT. 31.7 SECONDS (11.7-14.9)
[2020-07-24 16:09] LABS: International Normalized Ratio 2.9; Prothrombin Time (Protime)PT. 29.5 SECONDS (11.7-14.9)
[2020-07-24 16:24] LABS: Anion Gap 5 (5-15); BUN 35 mg/dL (7-18); BUN/Creat Ratio 29.2 RATIO (10-20); Calcium,Total 8.8 mg/dL (8.5-10.1); Chloride 102 mmol/L (98-107); EST Glomerular Filtration Rate 47 mL/min (>60); Est Glom Filt Rate - Afr Amer 56 mL/min (>60); Glucose 91 mg/dL (74-106); Potassium 3.9 mmol/L (3.5-5.1); Sodium Level 137 mmol/L (136-145)
== END 2020-07-24 18:00 | disposition home or self-care (01) ==
LOC: LAB 14:24
PROVIDERS: Nurse Practitioner Family; PCP Family Medicine Geriatric Medicine; Referring Provider Internal Medicine Cardiovascular Disease; Visit Provider Internal Medicine Cardiovascular Disease
DX: I48.91 Unspecified atrial fibrillation (principal); Z79.01 Long term (current) use of anticoagulants
CPT/HCPCS: 36415; 80048; 85610

== ENCOUNTER 2020-07-30 10:45 | Emergency (ER) | payer MEDICARE, OTHER, SELFPAY ==
[2020-07-23 15:57] VITALS: BMI 32.9
[2020-07-30 10:46] VITALS: BP 119/84; PULSE 79; RESP 14; TEMP 36.7; O2SAT 100; BMI 32.6
[2020-07-30] MEDS: Mixture 30 ML Bottle 5 ML TOPICAL (11:35)
[2020-07-30 11:58] LABS: International Normalized Ratio 2.9; Prothrombin Time (Protime)PT. 29.6 SECONDS (11.7-14.9)
--- NOTE | 2020-07-30 12:34 | ED.VIS.GEN ---
History of Present Illness Chief Complaint: Nosebleed Informant: Patient Narrative: 74-year-old female on Coumadin arriving with nosebleed from the right. She states is not running down the back of her throat. She is had to have cautery before. She is unsure which ENT she has seen. She was unable to get it stopped by direct pressure. - Past Medical History (1) Anemia Status: Chronic (2) Atrial fibrillation with RVR Status: Chronic (3) Bradycardia Status: Chronic (4) Essential hypertension Status: Chronic (5) Mixed hyperlipidemia Status: Chronic (6) Moderate to severe pulmonary hypertension Status: Chronic (7) Non-rheumatic mitral regurgitation Status: Chronic Comment: Severe per ECHO 06/08/20 (8) Non-rheumatic tricuspid valve insufficiency Status: Chronic Comment: Moderate per ECHO 06/08/20 (9) Secondary pulmonary hypertension Status: Chronic Past Medical History - Allergies and Home Meds Allergies/Adverse Reactions: Allergies piroxicam Allergy (Verified 07/30/20 10:46) Unknown BLEEDING ULCER AFTER ONE CAPSULE adhesive tape Adverse Reaction (Verified 07/30/20 10:46) Rash Primary Care Physician: Cassius Monaco Chi, MD [Primary Care Provider] - Surgical History: hysterectomy, tonsillectomy, - - Foot surgery. Smoking Status: Never smoker Drugs: None - Family History Maternal Family History: Family History (Last Reviewed 07/23/20 @ 15:57 by Becky Johnson) Mother 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 Father CAD (coronary artery disease) Myocardial infarction, Onset Age: 69 Brother 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 Heart disease Myocardial infarction Pacemaker Family History: Reports: No pertinent history Paternal Family History: Family History (Last Reviewed 07/23/20 @ 15:57 by Becky Johnson) Mother 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 Father CAD (coronary artery disease) Myocardial infarction, Onset Age: 69 Brother 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 Heart disease Myocardial infarction Pacemaker Family History: Reports: No pertinent history Review of Systems General: Denies: Chills, Fever, Sweats Eyes: Denies: Visual changes - bilaterally, Diplopia ENT: Reports: - - Right epistaxis. Denies: Rhinorrhea, Sore throat Cardiovascular: Denies: Chest pain, Palpitations Respiratory: Denies: Dyspnea, Cough, Dyspnea on exertion Gastrointestinal: Denies: Abdominal pain, Nausea, Vomiting, Diarrhea, Melena, Hematochezia Genitourinary: Denies: Dysuria, Hematuria, Frequency Musculoskeletal: Denies: Back pain, Extremity Pain Skin: Denies: Rash, Wounds Neurological: Denies: Headache, Weakness, Numbness Physical Exam Vital Signs/Narrative: Vital Signs Temp Pulse Resp BP Pulse Ox 07/30/20 10:46 98.1 F 79 14 119/84 H 100 Inital Vital Signs reviewed: Yes General: Well nourished, Well developed, No Acute Distress Head: Normocephalic, Atraumatic Eyes: Perrl, EOMI ENT: Moist mucous membranes, No rhinorrhea, - - There is active bleeding coming from the anterior plexus from a exposed blood vessel. Neck: Supple, Nontender, - Cardiovascular: Regular rate, Regular rhythm, No murmurs Respiratory: No distress, CTA bilaterally, Chest nontender Abdomen: Soft, Nontender, Nondistended, Normal bowel sounds Back: Nontender, Normal Inspection Extremities: Nontender, No edema Skin: Normal color, No rash Neurological: Alert, Oriented x3, Cranial nerves II-XII grossly intact, Normal Strength, Normal Sensation Psychological: Normal affect, Normal Mood Diagnostic/Tx/Re-eval Laboratory Last Values PT 29.6 SECONDS (11.7-14.9) H 07/30/20 11:40 INR 2.9 07/30/20 11:40 - Medical Decision Making He now returns at 2.9. Patient had nasal pincers applied. This did not relieve the bleeding. Loan mix on a cottonball was applied and then pincers on top of that. After about 25 minutes I reexamined the patient and there was a small amount of bleeding coming from the vessel still. I went ahead placed a anterior nasal packing. She will leave this in place and follow-up with ENT. ED Disposition - Plan for ED Patient: Disposition: Home or Assisted Living Diagnosis: Epistaxis Instructions: ED Epistaxis (Adult) Additional Instructions: Please follow-up with ENT in 3 days for packing removal
[2020-07-30 13:11] VITALS: BP 127/64; PULSE 96; RESP 18; O2SAT 100
== END 2020-07-30 13:13 | disposition home or self-care (01) ==
PROVIDERS: Emergency Provider Emergency Medicine; PCP Family Medicine Geriatric Medicine
DX: R04.0 Epistaxis (principal); I48.91 Unspecified atrial fibrillation; D64.9 Anemia, unspecified; E78.2 Mixed hyperlipidemia; I10 Essential (primary) hypertension; I27.29 Other secondary pulmonary hypertension; Z79.01 Long term (current) use of anticoagulants; Z82.49 Family history of ischemic heart disease and other diseases of the circulatory system; Z90.710 Acquired absence of both cervix and uterus
CPT/HCPCS: 30901; 85610; 99282; 99283

== ENCOUNTER 2020-07-30 15:59 | Emergency (ER) | payer MEDICARE, OTHER, SELFPAY ==
[2020-07-30 10:46] VITALS: BMI 32.6
[2020-07-30 16:01] VITALS: BP 148/79; PULSE 96; RESP 17; TEMP 36.2; O2SAT 94; BMI 32.6
--- NOTE | 2020-07-30 16:36 | ED.DCSUM_ITS ---
- ER Visit Summary Date of Service: 07/30/20 Chief Complaint: Nasal packing is painful History of Present Illness: The patient is a [address] Monaco and Dr. Sauceda. She reports that she has a nosebleed that began at 830 this morning. She was seen in the emerge department had a nasal packing placed. She reports that since that time she had a sharp pain to the right side of her nose and right ear that is 10 out of 10 in severity. She tried Tylenol, heating pad, and ice without relief. Review of systems: General: No fever, chills, cold sweats. Cardiovascular: No chest pain, palpitations. Respiratory: No cough, shortness of breath, dyspnea on exertion. Gastrointestinal: No abdominal pain, nausea, vomiting, diarrhea, melena, or hematochezia. Genitourinary: No dysuria, frequency, hematuria. Skin: No rash. Neuro: No headache, numbness, weakness. Physical Examination: Vitals: Stable. Afebrile. General: Well-nourished and well-developed. Head: Normocephalic atraumatic. HEENT: There is a packing present in her right nare. There is no bleeding. There is no blood in the oropharynx. Neck: Supple, no lymphadenopathy. No JVD. Nontender. Cardiovascular: Regular rate and rhythm. No murmurs. Respiratory: No respiratory distress. Clear to auscultation bilaterally. Abdominal: Soft, nontender, nondistended, normal bowel sounds. No guarding, rebound, or peritoneal signs. Back: Nontender. Extremities: Nontender, no edema. Skin: Normal color, no rash. Neurologic: Alert and oriented ?3. Cranial nerves II through XII are intact. Normal strength and sensation. Psych: Normal affect. Test Results: Patient's INR was 2.9 when she had this packing placed earlier today. Emergency Department Course and Treatment: The balloon was deflated and the patient's pain resolved. It was then inflated to a lower pressure in the maritime pilot balloon. Patient reports that her pain is much improved. She has been able to ambulate about the emergency department and bend over with no subsequent bleeding. Treatment Plan: Patient will be discharged with Percocet in case her pain worsens. She also given prescription for Keflex to prevent a sinus infection. Instructed to follow-up Dr. Sauceda in 3 to 5 days for another exam. Return to the emergency department for any worsening symptoms. Disposition: To home in improved and stable condition. Impression: 1. Pain due to nasal packing. 2. Coumadin coagulopathy. This note was generated with [employer] dictation software. It may contain incorrect words, spelling, and punctuation that were not noted in review of the chart prior to signing ED Disposition - Plan for ED Patient: Disposition: Home or Assisted Living Instructions: ED Epistaxis (Adult) Prescriptions: Cephalexin [Keflex] 500 mg PO TID #21 capsule Prescription Printed Oxycodone HCl/Acetaminophen [Percocet 5/325] 1 tablet PO Q6H PRN PRN 3 Days #12 tab PRN Reason: Pain Prescription Printed Sennosides [Senna] 8.6 mg PO QHS #10 tablet Prescription Printed Referrals: Khang Sauceda MD [STAFF PHYSICIAN] - 3-5 Days Additional Instructions: Do not take your Coumadin for the next 2 days as the Keflex may make your Coumadin level higher. Follow-up with Dr. Monaco and have your Coumadin level checked before restarting.
== END 2020-07-30 16:55 | disposition home or self-care (01) ==
LOC: ED 16:27
PROVIDERS: Emergency Provider Emergency Medicine; PCP Family Medicine Geriatric Medicine
DX: J34.89 Other specified disorders of nose and nasal sinuses (principal); R79.1 Abnormal coagulation profile; T45.515A Adverse effect of anticoagulants, initial encounter
CPT/HCPCS: 99282

== ENCOUNTER 2020-08-24 10:00 | Outpatient (RCR) | payer MEDICARE, OTHER, SELFPAY ==
[2020-08-17 09:35] LABS: International Normalized Ratio 3.4; Prothrombin Time (Protime)PT. 33.7 SECONDS (11.7-14.9)
[2020-08-24 10:45] LABS: International Normalized Ratio 1.6; Prothrombin Time (Protime)PT. 18.3 SECONDS (11.7-14.9)
== END 2020-08-24 18:00 | disposition home or self-care (01) ==
LOC: LAB 10:00
PROVIDERS: PCP Family Medicine Geriatric Medicine; Referring Provider Internal Medicine Cardiovascular Disease; Visit Provider Internal Medicine Cardiovascular Disease
DX: I48.91 Unspecified atrial fibrillation (principal); Z79.01 Long term (current) use of anticoagulants
CPT/HCPCS: 36415; 85610

== ENCOUNTER 2020-09-05 15:14 | Outpatient (RCR) | payer MEDICARE, OTHER, SELFPAY ==
[2020-08-17 13:03] VITALS: BMI 30.9
[2020-09-05 16:18] LABS: International Normalized Ratio 2.7; Prothrombin Time (Protime)PT. 27.8 SECONDS (11.7-14.9)
== END 2020-09-05 18:00 | disposition home or self-care (01) ==
LOC: LAB 15:14
PROVIDERS: PCP Family Medicine Geriatric Medicine; Referring Provider Internal Medicine Cardiovascular Disease; Visit Provider Internal Medicine Cardiovascular Disease
DX: I48.91 Unspecified atrial fibrillation (principal); Z79.01 Long term (current) use of anticoagulants
CPT/HCPCS: 36415; 85610

== ENCOUNTER 2020-09-14 07:52 | Day surgery (SDC) | payer MEDICARE, OTHER, SELFPAY ==
[2020-08-17 13:03] VITALS: BMI 30.9
[2020-09-14] MEDS: Lactated Ringers 1,000 ML 100 ML IV (08:23)
--- NOTE | 2020-09-14 09:00 | IMM_PTH ---
PATIENT: MARGARETTE WISE LOC: EN U#:[id number] AGE/SX: 74/F ROOM: RE09/14/[address]: Dr. Cam Noyola MD : 1945 BED: DIS: 09/14/2020 SPEC #: [id number] RECD: 09/14/20 12:27 STATUS: ANGELA KATIA #: [id number] JOAN: 09/14/20 09:[address]: Cam Noyola DEPT: IMMUNOHISTOCHEMISTRY RECD BY: Disha Sawant ENTERED: 09/14/20 12:28 SP TYPE: IMMUNO OTHR DR: Dr. Cassius Monaco MD Tissues: A - Stomach, NOS B - Cecum, NOS Procedures: Synapto (add) H Pylori (initial) MSH2 (add) MLH-1 (add) MSH6 (add) Anti-PMS2 (add) CD56 (add) CHROMO (add) CK20 (add) CK7 (add) CHENG-2 (add) HER2 ALEXANDER (add) P53 (add) CDX2 (add) KI-67 (initial) PHYSICIAN & INSTITUTION [place] [address] SPECIMEN INFORMATION: Tissue Source: A ? Antral biopsy, B ? Cecum biopsy Clinical Info: Anemia, occult blood in stool Specimen Number: [id number] A & B CPT code: 97509 x2, 94995 x13 METHODOLOGY: Deparaffinized sections of prefer/formalin-fixed tissue or PAP/DQ stained slides are incubated with monoclonal/polyclonal antibodies/oligonucleotide probes. Localization is made via biotin free immunoperoxidase method. Appropriate controls are performed and reacted as expected. Results on target cell population are indicated in the following table: RESULTS: ANTIBODY / CLONE RESULT Block A H Pylori (polyclonal) negative Block B Ki-67 (30-9) positive, 85% P53 (DO-7) positive, 5% CHENG-2 (SP21) positive MLH-1 (M1) positive MSH2 (25D12) positive MSH6 (44) positive PMS2 ([id number]) positive Her-2neu (CB11) negative CK20 (KS20.8) negative CDX2 ([id number]) negative CD56 (123C3.D5) negative Chromo (LK2H10) negative Synapto (polyclonal) negative CK7 (OV-TL12/30) positive These tests were developed and their performance characteristics determined by [facility]. They may not have been cleared or approved by the U.S. Food and Drug Administration. The FDA has determined that such clearance or approval is not necessary. The above immunohistochemical/dualISH markers are ordered and reviewed by the pathologist. INTERPRETATION: A. Antral biopsy: Negative for Helicobacter pylori organisms. B. Cecum biopsy: Adenocarcinoma, favor GI tract origin. Result of Microsatellite Instability Study: Negative (no loss of mismatch protein; no microsatellite instability detected). Positive (loss of mismatch protein; microsatellite instability detected). Partial loss of MLH1, MSH2, MSH6 and PMS2. Complete loss of MLH1, MSH2, MSH6 and PMS2. AM:spencer 09/28/20
--- NOTE | 2020-09-14 09:00 | IMM_PTH ---
PATIENT: MARGARETTE WISE LOC: EN U#:[id number] AGE/SX: 74/F ROOM: RE09/14/[address]: Dr. Cam Noyola MD : 1945 BED: DIS: 09/14/2020 SPEC #: [id number] RECD: 09/14/20 12:27 STATUS: ANGELA KATIA #: [id number] JOAN: 09/14/20 09:[address]: Cam Noyola DEPT: IMMUNOHISTOCHEMISTRY RECD BY: Disha Sawant ENTERED: 09/14/20 12:28 SP TYPE: IMMUNO OTHR DR: Dr. Cassius Monaco MD Tissues: A - Stomach, NOS B - Cecum, NOS Procedures: Synapto (add) H Pylori (initial) MSH2 (add) MLH-1 (add) MSH6 (add) Anti-PMS2 (add) CD56 (add) CHROMO (add) CK20 (add) CK7 (add) CHENG-2 (add) HER2 ALEXANDER (add) P53 (add) CDX2 (add) KI-67 (initial) PHYSICIAN & INSTITUTION [place] [address] SPECIMEN INFORMATION: Tissue Source: A ? Antral biopsy, B ? Cecum biopsy Clinical Info: Anemia, occult blood in stool Specimen Number: [id number] A & B CPT code: 20940 x2, 29629 x13 METHODOLOGY: Deparaffinized sections of prefer/formalin-fixed tissue or PAP/DQ stained slides are incubated with monoclonal/polyclonal antibodies/oligonucleotide probes. Localization is made via biotin free immunoperoxidase method. Appropriate controls are performed and reacted as expected. Results on target cell population are indicated in the following table: RESULTS: ANTIBODY / CLONE RESULT Block A H Pylori (polyclonal) negative Block B Ki-67 (30-9) positive, 85% P53 (DO-7) positive, 5% CHENG-2 (SP21) positive MLH-1 (M1) positive MSH2 (25D12) positive MSH6 (44) positive PMS2 ([id number]) positive Her-2neu (CB11) negative CK20 (KS20.8) negative CDX2 ([id number]) negative CD56 (123C3.D5) negative Chromo (LK2H10) negative Synapto (polyclonal) negative CK7 (OV-TL12/30) positive These tests were developed and their performance characteristics determined by [facility]. They may not have been cleared or approved by the U.S. Food and Drug Administration. The FDA has determined that such clearance or approval is not necessary. The above immunohistochemical/dualISH markers are ordered and reviewed by the pathologist. INTERPRETATION: A. Antral biopsy: Negative for Helicobacter pylori organisms. B. Cecum biopsy: Adenocarcinoma, favor GI tract origin. Result of Microsatellite Instability Study: Negative (no loss of mismatch protein; no microsatellite instability detected). AM:spencer 09/28/20 AM:spencer 10/02/2020
--- NOTE | 2020-09-14 09:00 | EGD_PTH ---
PATIENT: MARGARETTE WISE LOC: EN U#:[id number] AGE/SX: 74/F ROOM: RE09/14/[address]: Dr. Cam Noyola MD : 1945 BED: DIS: 09/14/2020 SPEC #: [id number] RECD: 09/14/20 11:08 STATUS: ANGELA CRABTREERadha #: [id number] JOAN: 09/14/20 09:[address]: Cam Noyola DEPT: SURGICAL PATHOLOGY RECD BY: Yadira العلي ENTERED: 09/14/20 12:06 SP TYPE: EGD BIOPSY [facility] DR: Dr. Cassius Monaco MD Tissues: A - Gastric mucous membrane B - Cecum, NOS Procedures: Surgery Specimen Level IV HEADER OPERATION: Colonoscopy, EGD ([facility] [place]) PRE-OP DIAGNOSIS: Anemia, occult blood in stool TISSUE SUBMITTED: A ? Antral biopsy and H. pylori and path, B ? Biopsy cecum MICROSCOPIC DIAGNOSIS A. Gastric antrum, biopsy: Mild chronic gastritis. See comment. B. 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 See comment. AM:spencer 09/28/2020 COMMENT A. The results of immunohistochemistry for Helicobacter pylori will be reported separately ([id number]). B. Immunohistochemistry ([id number]) supports the above diagnosis and favor a GI tract primary. Clinical correlation is suggested. Case is discussed with Dr. Noyola 09/19/[address] Khan. Case is seen in consultation with of [employer]. Report is viewable in EMR. Case has been reviewed in consultation with Dr. Bashir who concurs with the above diagnosis. IDC:[email or web address] MICROSCOPIC DESCRIPTION Slides are reviewed. GROSS DESCRIPTION A - Received in fixative is one container labeled with the patient's name and designated antrum. The specimen consists of multiple irregular fragments of light salazar soft tissue that in aggregate measure 0.6 x 0.6 x 0.1 cm. The specimen is totally submitted in one cassette. B - Received in fixative is one container labeled with the patient's name and designated cecum biopsy. The specimen consists of multiple irregular fragments of light salazar soft tissue that in aggregate measure 0.6 x 0.5 x 0.1 cm. The specimen is totally submitted in one cassette. / AM:spencer 09/14/20 TC:0 CPT: 58149 x2
--- NOTE | 2020-09-14 09:01 | HP.PCM_ITS ---
HPI - General HPI Narrative MARGARETTE WISE, is a 74 F who presents for positive fecal occult blood. Patient has been having anemia and occult blood positive. She has not had any gross blood in her stool. She does have a history of bleeding ulcer. Patient stopped her Coumadin for this procedure. She is not having any abdominal pain. Her last colonoscopy was over 15 years ago [facility] Medical History (Updated 09/14/20 @ 09:[address] 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 Mixed hyperlipidemia Moderate to severe pulmonary hypertension Non-rheumatic mitral regurgitation Non-rheumatic tricuspid valve insufficiency Normal echocardiogram (~06/08/20) Normal stress echocardiogram (~06/03/17) Paroxysmal atrial fibrillation Secondary pulmonary hypertension Severe mitral regurgitation Shortness of breath on exertion Syncope and collapse Vertigo Wears dentures Home Medications alendronate 70 mg tablet 70 mg PO QWEEK 06/02/19 [History Last Taken Unknown] potassium chloride 20 mEq tablet,extended release 20 meq PO DAILY #90 tab 01/13/20 [Rx Last Taken Unknown] warfarin 5 mg tablet 5 mg PO .COMPLEX #90 tablet 05/11/20 [Rx Last Taken 09/07/20] ergocalciferol (vitamin D2) 1,000 unit tablet 1 tab PO DAILY tab 05/28/20 [History Last Taken Unknown] pravastatin 40 mg tablet 40 mg PO QHS tab 05/28/20 [History Last Taken Unknown] furosemide 40 mg tablet 80 mg PO BID #360 tab 05/31/20 [Rx Last Taken Unknown] lisinopril 40 mg tablet 40 mg PO DAILY 05/31/20 [History Last Taken 09/14/20] metoprolol tartrate 100 mg tablet 100 mg PO BID tablet 07/13/20 [History Last Taken 09/14/20] polysaccharide iron complex 150 mg PO DAILYCM #90 capsule 07/23/20 [Rx Last Taken Unknown] Sennosides [Senna] 8.6 mg PO QHS #10 tablet 07/30/20 [Rx Last Taken Unknown] isosorbide mononitrate 30 mg tablet,extended release 24 hr 30 mg PO BID tab 08/17/20 [History Last Taken 09/14/20] Allergy/AdvReac Type Severity Reaction Status Date / Time piroxicam Allergy Unknown Verified 09/14/20 08:22 adhesive tape AdvReac Rash Verified 09/14/20 08:22 Family History Mother 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 Father , from [place] at age 69 CAD (coronary artery disease) Myocardial infarction, Onset Age: 69 Brother 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 Heart disease Myocardial infarction Pacemaker Surgical History (Updated 09/13/20 @ 09:54 by Beth Moore) H/O: hysterectomy History of carpal tunnel release History of hysterectomy History of knee replacement, total History of left heart catheterization (06/12/17) History of right and left heart catheterization (11/16/19) History of tonsillectomy History of tonsillectomy History of transesophageal echocardiography (HANNY) (11/16/19) Hx of cataract extraction Right TKA Social History Smoking Status: Never smoker alcohol intake: current alcohol intake frequency: holidays/special occasions only substance use type: does not use caffeine: Yes Type: carbonated beverages Number of servings: 1 what type of physical activity do you participate in: none Past Medical/Surgical History Planned Operation Planned Operative Procedure/s: COLONOSCOPY S.O.S: No Previous Hospitalizations/Surgeries HX Hospitalizations: Yes (2020 INCREASED HR & BP) HX of Surgeries: carpal tunnel, bilat foot surgery, tonsillectomy Any Problems With Anesthesia: No You/Your Family Experience Fever (Hyperthermia) With Anes: No Cholinesterase deficiency: No Cardiovascular Hx Chest Pain within Last 2 months: Yes Hx of Irregular Heartbeat and/or Afib: Yes (A FIB. FOLLOWS WITH DR LEUNG YEARLY) Hx Heart Attack: No Hx Congestive Heart Failure: No Hx Rheumatic Fever: No Hx 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: Yes (ON MEDS BP CONTROLLED) Hx Internal Defibrillator: No Hx Pacemaker: No Hx Cardiac Catheterization: Yes (DR LEUNG) What facility was last heart cath performed: [facility] Date of last Heart Cath: unk Hx Cardiac Surgery/Stents/Etc.: No Hx Stress Test: Yes (2007 AND ECHO 2013, SEE NOTE 03/2016 DR LEUNG) Hx Pain in Legs when Walking/Leg Cramps: Yes (LEFT KNEE PAIN) Respiratory Chronic Cough: No HX of Shortness of Breath: Yes (WITH EXERTION) Hoarseness: No Hx Chronic Obstructive Pulmonary Disease (COPD): No Hx Asthma: No Hx Emphysema: No Hx Sleep Apnea: No CPAP: No Hx Respiratory Tract Infection/Cold (presently): No Do You Snore Loudly (louder than talking or can be heard): No Do You Often Feel Tired/ Fatigued/ Sleepy Dring Daytime?: No Has Anyone Observed You Stop Breathing During Sleep?: No Result (for STOP score): Negative Hx Smoking: No Smoking Status: Never smoker Gastrointestinal Hx Gastroesophageal Reflux: No Hx Gastrointestinal Disorders: No Hx Gastrointestinal Bleed: No Hx Ulcer: Yes (IN THE PAST,RESOLVED) Hx Hiatal Hernia: No Difficulty Chewing/Swallowing: No Special diet followed at home: No Hx Unplanned Weight Loss of 20#: No HX Unplanned Weight Gain of 20#: No Neurological Hx Seizures: No HX Syncope/Blackout Spells/Unconsciousness: Yes (BLACK OUT YRS AGO. HAD CARDIAC WORK UP AND WAS NEGATIVE. RESOLVED.) Hx Transient Ischemic Attacks (TIA): No Hx Multiple Sclerosis: No Hx Parkinson's Disease: No Hx Head/Neck Injury: No Hx Headaches: No Hx Back Injury/Pain: No Recent Onset of Speech Difficulty: No Restless Legs: No Does patient have nerve stimulator: No Blood Disorder Hx Leukemia: No Bleeding Tendencies: No Hx Deep Vein Thrombosis: No Hx High Cholesterol: Yes Blood Transmitted Disease: No Hx Hepatitis: No Hx Cirrhosis: No Hx Anemia: No Hx Blood Disorders: Yes (STATES EASY BRUISING) Reproduction Is Patient Lactating: No Hx Tubal Ligation: No Genitourinary Hx Renal Disease: No Hx Dialysis: No Musculoskeletal Hx Arthritis: Yes (Bilateral TKA, generlized, but mostly in hands.) Hx Rheumatoid Arthritis: No Hx Gout: No Recent Onset of an Orthopedic Problem: No (CHRONIC KNEE PAIN) Endocrine Hx Diabetes: No Thyroid Disease: No Hx Steroid Therapy: Yes (OCTOBER 2015, APPROX) Psycho/Social Hx Substance Use: No Hx Alcohol Use: No Hx Anxiety: No Hx Depression: No Mental Illness: No Hx Dementia: No Miscellaneous Hx Cancer: No Recent Exposure to Contagious Disease: No Hx of C-Diff: No Any Loose Teeth: No (FULL SET OF DENTURES) Allergies piroxicam Allergy (Verified 09/14/20 08:22) Unknown BLEEDING ULCER AFTER ONE CAPSULE adhesive tape Adverse Reaction (Verified 09/14/20 08:22) Rash Maternal: Family History Mother 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 Father CAD (coronary artery disease) Myocardial infarction, Onset Age: 69 Brother 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 Heart disease Myocardial infarction Pacemaker No pertinent history Paternal: Family History Mother 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 Father CAD (coronary artery disease) Myocardial infarction, Onset Age: 69 Brother 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 Heart disease Myocardial infarction Pacemaker No pertinent history Discharge Is Pt Admitted From a Group Home, or a Prison: No After D/C, Where Do you Plan to Go: Return Home From the PAT History Number of Risk Factors: 4 Vital Signs Vital Signs Vital Signs: 09/14/20 08:23 Respiratory Pattern Normal Weight Body Mass Index (BMI) 30.9 Physical Exam Const alert and oriented x3 Resp normal respiratory effort and normal air movement Cardio regular rate and regular rhythm GI soft to palpation, non-tender and non-distended Assessment & Plan Assessment/Plan (1) Anemia: QUALIFIERS: Anemia type: iron deficiency Iron deficiency anemia t ype: unspecified iron deficiency Qualified Code(s): D50.9 - Iron deficiency anemia, unspecified (2) Occult blood in stools: PLAN: The patient has been having positive fecal occult blood and she does have a history of bleeding gastric ulcer. She was originally scheduled for colonoscopy but upon discussing EGD she would like to proceed with EGD as well. I will plan for EGD and colonoscopy. I explained endoscopy in detail to the patient. I explained the risks including but not limited to stroke or heart attack with anesthesia, perforation of the GI tract, bleeding, infection. I explained that any of these could necessitate further emergency surgery. The patient understands and all questions were answered sufficiently. The patient wishes to proceed with procedure. Cam Noyola MD Pager: [facility] [address] [place] [address] [place] [id number] Office: Surgery Risks - Colonoscopy Risks Include but are not Limited To: Risks include but are not limited to: Bleeding, perforation requiring further surgery, inability to complete colonoscopy requiring barium enema.
[2020-09-14 09:15] LABS: INR Fingerstick 0.9
[2020-09-14 10:00] VITALS: BP 106/82; BP 122/66; PULSE 96; RESP 16; TEMP 36.5; O2SAT 94
--- NOTE | 2020-09-14 10:01 | OP.EGD_ITS ---
Patient Name: Rhea Lawrence Procedure Date: 09/14/2020 9:21 AM Date of : 1945 Age: 74 Procedure: Upper GI endoscopy Indications: Iron deficiency anemia Providers: Cam Noyola MD Medicines: Monitored Anesthesia Care Patient Profile: This is a 74 year old female. Refer to note in patient chart for documentation of history and physical. Complications: No immediate complications. Estimated blood loss: Minimal. Procedure: Pre-Anesthesia Assessment: - Prior to the procedure, a History and Physical was performed, and patient medications and allergies were reviewed. The patient's tolerance of previous anesthesia was also reviewed. The risks and benefits of the procedure and the sedation options and risks were discussed with the patient. All questions were answered, and informed consent was obtained. Prior Anticoagulants: The patient has taken Coumadin (warfarin), last dose was 5 days prior to procedure. After reviewing the risks and benefits, the patient was deemed in satisfactory condition to undergo the procedure. After obtaining informed consent, the endoscope was passed under direct vision. Throughout the procedure, the patient's blood pressure, pulse, and oxygen saturations were monitored continuously. The gastroscope was introduced through the mouth, and advanced to the second part of duodenum. The upper GI endoscopy was accomplished without difficulty. The patient tolerated the procedure well. Scope In: 9:25:53 AM Scope Out: 9:30:22 AM Total Procedure Duration Time 0 hours 4 minutes 29 seconds Findings: Few non-bleeding superficial gastric ulcers with no stigmata of bleeding were found in the gastric antrum. Biopsies were taken with a cold forceps for Helicobacter pylori testing. To prevent bleeding after the biopsy, one hemostatic clip was successfully placed. There was no bleeding at the end of the procedure. The esophagus was normal. The examined duodenum was normal. Impression: - Non-bleeding gastric ulcers with no stigmata of bleeding. Biopsied. Clip was placed. - Normal esophagus. - Normal examined duodenum. Recommendation: - Discharge patient to home. - Resume previous diet. - Continue present medications. - Resume Coumadin (warfarin) at prior dose tomorrow. - Await pathology results. - Use Prilosec (omeprazole) 40 mg PO daily for 2 months. Procedure Code(s): --- Professional --- 60952, Esophagogastroduodenoscopy, flexible, transoral; with biopsy, single or multiple Diagnosis Code(s): --- Professional --- K25.9, Gastric ulcer, unspecified as acute or chronic, without hemorrhage or perforation D50.9, Iron deficiency anemia, unspecified CPT copyright 2017 [employer]. All rights reserved. The codes documented in this report are preliminary and upon lithography contact worker review may be revised to meet current compliance requirements. Cam Noyola MD 09/14/2020 10:00:28 AM This report has been signed electronically. Number of Addenda: 0 Note Initiated On: 09/14/2020 9:21 AM
--- NOTE | 2020-09-14 10:01 | OP.CCLET_ITS ---
09/14/2020 Cassius Monaco MD [address] [place] [address] Re : Upper GI endoscopy procedure for Rhea Lawrence Dear Dr. Monaco This procedure was performed on Monday, September 14, 2020. My impressions and recommendations are as follows: Impressions : - Non-bleeding gastric ulcers with no stigmata of bleeding. Biopsied. Clip was placed. - Normal esophagus. - Normal examined duodenum. Recommendations : - Discharge patient to home. - Resume previous diet. - Continue present medications. - Resume Coumadin (warfarin) at prior dose tomorrow. - Await pathology results. - Use Prilosec (omeprazole) 40 mg PO daily for 2 months. My findings are described in the full procedure note, which is enclosed. If I can be of further assistance, please feel free to contact me at Doctor phone number(s): , Work: . Sincerely, Cam Noyola MD 09/14/2020 10:00:28 AM This report has been signed electronically.
--- NOTE | 2020-09-14 10:03 | OP.COLON_ITS ---
Patient Name: Rhea Lawrence Procedure Date: 09/14/2020 8:56 AM Date of : 1945 Age: 74 Procedure: Colonoscopy Indications: Gastrointestinal occult blood loss, Iron deficiency anemia Providers: Cam Noyola MD Medicines: Monitored Anesthesia Care Patient Profile: This is a 74 year old female. Refer to note in patient chart for documentation of history and physical. Last Colonoscopy: more than 10 years ago. Complications: No immediate complications. Estimated blood loss: Minimal. Procedure: Pre-Anesthesia Assessment: - Prior to the procedure, a History and Physical was performed, and patient medications and allergies were reviewed. The patient's tolerance of previous anesthesia was also reviewed. The risks and benefits of the procedure and the sedation options and risks were discussed with the patient. All questions were answered, and informed consent was obtained. Prior Anticoagulants: The patient has taken Coumadin (warfarin), last dose was 5 days prior to procedure. After reviewing the risks and benefits, the patient was deemed in satisfactory condition to undergo the procedure. After I obtained informed consent, the scope was passed under direct vision. Throughout the procedure, the patient's blood pressure, pulse, and oxygen saturations were monitored continuously. The Colonoscope was introduced through the anus and advanced to the cecum, identified by appendiceal orifice and ileocecal valve. After I obtained informed consent, the scope was passed under direct vision. Throughout the procedure, the patient's blood pressure, pulse, and oxygen saturations were monitored continuously. The colonoscopy was performed without difficulty. The patient tolerated the procedure well. The quality of the bowel preparation was good. Scope In: 9:34:02 AM Scope Withdrawal Time 0 hours 6 minutes 2 seconds Scope Out: 9:54:15 AM Total Procedure Duration Time 0 hours 20 minutes 13 seconds Findings: A continuous area of nonbleeding ulcerated mucosa with no stigmata of recent bleeding was present in the cecum. Biopsies were taken with a cold forceps for histology. The exam was otherwise without abnormality on direct and retroflexion views. Impression: - Mucosal ulceration. Biopsied. - The examination was otherwise normal on direct and retroflexion views. Recommendation: - Discharge patient to home. - Resume previous diet. - Continue present medications. - Await pathology results. - Repeat colonoscopy for surveillance based on pathology results. Procedure Code(s): --- Professional --- 78062, Colonoscopy, flexible; with biopsy, single or multiple Diagnosis Code(s): --- Professional --- K63.3, Ulcer of intestine R19.5, Other fecal abnormalities D50.9, Iron deficiency anemia, unspecified CPT copyright 2017 [employer]. All rights reserved. The codes documented in this report are preliminary and upon building principal review may be revised to meet current compliance requirements. Cam Noyola MD 09/14/2020 10:02:47 AM This report has been signed electronically. Number of Addenda: 0 Note Initiated On: 09/14/2020 8:56 AM
--- NOTE | 2020-09-14 10:03 | OP.CCLET_ITS ---
09/14/2020 Cassius Monaco MD [address] [place] [address] Re : Colonoscopy procedure for Rhea Lawrence Dear Dr. Monaco This procedure was performed on Monday, September 14, 2020. My impressions and recommendations are as follows: Impressions : - Mucosal ulceration. Biopsied. - The examination was otherwise normal on direct and retroflexion views. Recommendations : - Discharge patient to home. - Resume previous diet. - Continue present medications. - Await pathology results. - Repeat colonoscopy for surveillance based on pathology results. My findings are described in the full procedure note, which is enclosed. If I can be of further assistance, please feel free to contact me at Doctor phone number(s): , Work: . Sincerely, Cam Noyola MD 09/14/2020 10:02:47 AM This report has been signed electronically.
[2020-09-14 10:05] VITALS: BP 122/66; BP 93/6; PULSE 97; RESP 16; O2SAT 97
[2020-09-14 10:10] VITALS: BP 107/75; BP 122/66; PULSE 96; RESP 16; O2SAT 96
[2020-09-14 10:15] VITALS: BP 122/66; BP 99/70; PULSE 96; RESP 16; O2SAT 96
[2020-09-14 10:30] VITALS: BP 122/66; BP 97/74; PULSE 94; RESP 16; TEMP 36.5; O2SAT 94
[2020-09-14 11:15] VITALS: BP 122/66
[2020-09-15 10:52] LABS: Prothrombin Time Fingerstick 11.1 SEC (11.9-14.4)
== END 2020-09-14 11:35 ==
LOC: EN 07:52 → AC 07:52
PROVIDERS: PCP Family Medicine Geriatric Medicine; Referring Provider Surgery; Visit Provider Surgery
PROC: 0DJD8ZZ Inspection of Lower Intestinal Tract, Via Natural or Artificial Opening Endoscopic (ICD-10-PCS; CPT 45378; principal; 2020-09-14 08:55)
DX: D50.9 Iron deficiency anemia, unspecified (principal); K63.3 Ulcer of intestine; R19.5 Other fecal abnormalities; K25.9 Gastric ulcer, unspecified as acute or chronic, without hemorrhage or perforation; I25.10 Atherosclerotic heart disease of native coronary artery without angina pectoris; I48.91 Unspecified atrial fibrillation; I10 Essential (primary) hypertension; K21.9 Gastro-esophageal reflux disease without esophagitis; E78.2 Mixed hyperlipidemia; I34.0 Nonrheumatic mitral (valve) insufficiency; I48.0 Paroxysmal atrial fibrillation; Z79.01 Long term (current) use of anticoagulants
CPT/HCPCS: 43239; 45380; 36416; 85610; 88305; 88341; 88342; J2405

== ENCOUNTER → 2020-10-03 06:51 | Outpatient (CLI) | payer MEDICARE, OTHER, SELFPAY ==
[2020-09-25 15:33] VITALS: BMI 31.1
--- NOTE | 2020-10-03 06:57 | CT_ITS ---
STUDY: CT CHEST, ABDOMEN T PELVIS WITH CONTRAST REASON FOR EXAM: Female, 74 years old. work up for colon cancer-- PO and IV contrast RADIATION DOSAGE (If Supplied By Facility): CTDIvol = ( 16.17 ) mGy, DLP = ( 1070.36 ) mGycm TECHNIQUE: Transaxial imaging was performed following intravenous administration of Oral and amp;amp; IV Readi-CAT and amp;amp; 100mL Isovue-300. Individualized dose optimization techniques were used for this CT. COMPARISON: 12/08/2019 FINDINGS: CHEST Lingular linear scarring. No noncalcified nodule or mass. There is no demonstrated pleural abnormality. Normal heart and pericardium. Normal mediastinum. Normal hilar regions. Normal unenhanced pulmonary arteries. Normal aorta arch and descending thoracic aorta. Multiple chronic compression fractures of the thoracic spine which is treated with vertebroplasty. There is no demonstrated abnormality of the visualized upper abdomen. ABDOMEN The visualized lung bases are unremarkable. The visualized portions of the heart are within normal limits. Subcentimeter cyst in the posterior segment the right lobe of the liver. Normal gallbladder and extrahepatic biliary system. Normal spleen. Normal pancreas. Normal bilateral adrenal glands. Normal right kidney. Normal left kidney. Normal visualized stomach. Normal small intestine. There are multiple colonic diverticula consistent with diverticulosis. There is non-visualization of the appendix. There is diffuse atherosclerotic calcification of the abdominal aorta, without a demonstrated aneurysm. Normal inferior vena cava. Normal retroperitoneum. Normal abdominal wall. Normal osseous structures. PELVIS Normal urinary bladder. Normal visualized small intestine. There are multiple colonic diverticula of the sigmoid colon consistent with chronic diverticulosis. There is no pelvic fluid. There is no pelvic lymphadenopathy or mass lesion. Normal visualized pelvic arteries. Normal abdominal wall. Normal osseous structures. CT/CT Chest, Abd, Pel w/Contrast IMPRESSION: No CT evidence of primary or metastatic colonic carcinoma. Sigmoid diverticulosis without diverticulitis. Electronically Signed: Keagan Hatch MD at 14:58 EDT Tel , Service support ,
[2020-10-04 14:00] LABS: Carcinoembryonic Antigen 4.8 ng/mL (0.0-4.7)
== END ==
PROVIDERS: PCP Family Medicine Geriatric Medicine; Referring Provider Surgery; Visit Provider Surgery
DX: C18.0 Malignant neoplasm of cecum (principal)
CPT/HCPCS: 36415; 71260; 74177; 82378; Q9967

== ENCOUNTER 2020-10-29 10:10 | Inpatient (IN) | payer MEDICARE, OTHER, SELFPAY ==
[2020-09-25 15:33] VITALS: BMI 31.1
[2020-10-25 15:11] VITALS: BMI 32.4
[2020-10-26 12:34] LABS: Hematocrit 33.3 % (37-47); Hemoglobin 10.4 g/dL (12.0-15.0); Mean Corp Hgb Conc 31.2 g/dL (32-36); Mean Corpuscular Hgb 27.8 pg (27.0-32.0); Mean Platelet Vol. 8.8 fl (6.2-12.0); Platelet Count 260 K/mm3 (150-450); RBC Distribution Width CV 18.2 % (11.6-14.6); RBC Distribution Width SD 57.4 fl (35.1-43.9); Red Blood Count 3.74 M/mm3 (4.2-5.4); White Blood Count 4.3 K/mm3 (4.4-11.0)
[2020-10-26 12:50] LABS: International Normalized Ratio 1.2; Prothrombin Time (Protime)PT. 14.6 SECONDS (11.7-14.9)
[2020-10-26 13:00] LABS: Magnesium 2.1 mg/dL (1.6-2.6)
[2020-10-29] VITALS (21 sets, daily range): BP systolic 73–139; BP diastolic 36–97; PULSE 63–95; RESP 14–100; TEMP 36.2–37; O2SAT 14–100; BMI 32.2; BMI 31.3
--- NOTE | 2020-10-29 | COL._PTH ---
PATIENT: MARGARETTE WISE LOC: MS3 U#:[id number] AGE/SX: 74/F ROOM: [facility] RE10/29/[address]: Dr. Cam Noyola MD : 1945 BED: 1 DIS: 11/01/2020 SPEC #: [id number] RECD: 10/29/20 14:59 STATUS: ANGELA MONTALVO #: [id number] JOAN: 10/29/20 00:[address]: Cam Noyola DEPT: SURGICAL PATHOLOGY RECD BY: Gerard Workman ENTERED: 10/30/20 08:43 SP TYPE: COLON OTHR DR: DO Dr. Cassius Bone Chi, MD Tissues: Colon, NOS Procedures: Surgery Specimen Level HEADER OPERATION: ERAS, laparoscopic hemicolectomy PRE-OP DIAGNOSIS: Adenocarcinoma of cecum TISSUE SUBMITTED: Right hemicolectomy MICROSCOPIC DIAGNOSIS Right colon, hemicolectomy: Invasive moderately differentiated adenocarcinoma. See cancer checklist below. AM:spencer 11/01/2020 COMMENT COLON CANCER SUMMARY Procedure: Right hemicolectomy Tumor site: Ascending colon Tumor size: 1 x 1 x 0.6 cm Macroscopic tumor perforation: Not identified Histologic type: Adenocarcinoma Histologic grade: G2 (moderately differentiated) Tumor extension: Tumor invades into pericolic fatty tissue. Margins: All margins are uninvolved by invasive carcinoma, high grade dysplasia/carcinoma in situ and adenoma. Margins examined: Proximal, distal and serosal Treatment effect: Unknown Lymphvascular invasion: Not identified Perineural invasion: Not identified Tumor deposits: Not identified Regional lymph nodes: 6 of 6 lymph nodes negative for metastatic carcinoma. Associated lesions: None identified Ancillary studies: [id number] Microsatellite instability marker study: Negative (No microsatellite instability detected. No loss of MSI markers.) Additional pathologic findings: None PATHOLOGIC STAGE: pT3 N0 Mx The above summary is in compliance with [employer] [place] (CAP) Cancer Protocols Checklist and [place] Joint Committee on Cancer (AJCC), Staging Manual, 8th Ed. Reference is made to previous biopsy of Cecal mass () in which well to moderately differentiated adenocarcinoma was identified. Case has been reviewed in consultation with Dr. Bashir who concurs with the above diagnosis. IDC:SJ MICROSCOPIC DESCRIPTION Slides are reviewed. GROSS DESCRIPTION Received in fixative is one container labeled with the patient's name and designated right hemicolectomy. The specimen consists of a right hemicolectomy specimen consisting of cecum with ascending colon with attached pericolonic adipose tissue and segment of small intestine. Appendix is not identified. Cecum with ascending colon measures 18 cm in length and segment of small intestine measures 11 cm in length. Both resection margins are stapled. 5 cm away from the ileocecal wall and 7 cm away from the distal resection margin, an ulcerated lesion is noted measuring 1 x 1 cm in the ascending colon. The serosal surface overlying this lesion is inked black. The pericolonic adipose tissue is fixed in lymph-node revealing solution. A lesion is noted in the ascending colon. The lumen of bowel is filled with fecal material. Also present in the container is a donut-shaped piece of colonic bowel tissue measuring 3.5 x 1.5 x 1 cm. Sections will be submitted after fixation. / SJ:spencer 10/30/20 Sections of the tumor mass reveal full thickness involvement. Sections of colonic adipose tissue reveal multiple lymph nodes. The largest lymph node measures 1 cm. Real Estate Inspector sections are submitted as follows: 1 - donut, 2 - proximal and distal resection margins, 3-5 - tumor, entirely, 6 - ileocecal valve, small and large intestine, 7 - one lymph node, 8 - one lymph node, 9 - multiple lymph nodes, 10-12 - pericolonic adipose tissue with possible lymph nodes. / SJ:spencer 10/31/20 TC:0 CPT: 85333
[2020-10-29 10:40] LABS: INR Fingerstick 1.3
--- NOTE | 2020-10-29 10:42 | PCM.HP.BLA ---
History and Physical Date of Admission: 10/29/20 Intake Intake Visit Reasons: Discuss c-scope and testing results Chief Complaint: F/u for anemia evaluation. Allergies piroxicam Allergy (Verified 09/25/20 15:32) Unknown adhesive tape Adverse Reaction (Verified 09/25/20 15:32) Rash [facility] Medical History Anemia Arthritis Atrial fibrillation with RVR Back pain bilateral feet surgery Bradycardia CAD (coronary artery disease) Cardiology follow-up encounter (~08/17/20) Cerumen impaction Chest pain Costochondritis Easy bruising Essential hypertension Excessive bleeding Gastric reflux GERD (gastroesophageal reflux disease) High cholesterol 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 halfway current use of anticoagulant Mixed hyperlipidemia Moderate to severe pulmonary hypertension Non-rheumatic mitral regurgitation Non-rheumatic tricuspid valve insufficiency Normal echocardiogram (~06/08/20) Normal stress echocardiogram (~06/03/17) Paroxysmal atrial fibrillation Secondary pulmonary hypertension Severe mitral regurgitation Shortness of breath on exertion Syncope and collapse Vertigo Wears dentures Surgical History H/O: hysterectomy History of carpal tunnel release History of hysterectomy History of knee replacement, total History of left heart catheterization (06/12/17) History of right and left heart catheterization (11/16/19) History of tonsillectomy History of tonsillectomy History of transesophageal echocardiography (HANNY) (11/16/19) Hx of cataract extraction Right TKA Family History Mother 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 Father , from [place] at age 69 CAD (coronary artery disease) Myocardial infarction, Onset Age: 69 Brother 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 Heart disease Myocardial infarction Pacemaker Social History Smoking Status: Never smoker alcohol intake: current alcohol intake frequency: holidays/special occasions only substance use type: does not use caffeine: Yes Type: carbonated beverages Number of servings: 1 what type of physical activity do you participate in: none HPI HPI HPI: MARGARETTE WISE, is a 74 F who presents to the office today for follow-up after colonoscopy. Patient has not experienced any abdominal pain or blood in her stool. ROS General General: No weight change or fatigue HEENT HEENT: No difficulty swallowing Endo Endocrine: No thyroid disease Musc Musculoskeletal: No back problems or arthritis Cardio Cardiovascular: No pacemaker, heart disease, atrial fibrillation, high blood pressure, heart attack, heart stent, palpitations or chest pain Psych Psychiatric: No depression or anxiety Resp Respiratory: No shortness of breath, No cough, No COPD, No asthma and No emphysema Gastro Gastrointestinal: No abdominal pain, No nausea or vomiting, No diarrhea, No constipation, No blood in stool, No acid reflux, No hemorrhoids, No ulcers, No gallbladder problem and No black,tarry stools Osvaldo Hematologic: No blood thinners Exam Const General: cooperative Orientation: alert and oriented x3 HENMT Head: normal to inspection Neck Neck: normal visual inspection and full ROM Chest Chest palpation & inspection: normal inspection of the chest Resp Effort & Inspection: normal respiratory effort Auscultation: clear to auscultation bilaterally Cardio Rate: regular rate Rhythm: regular rhythm GI Inspection: non-distended Palpation: soft and nontender Skin General: no rashes or lesions noted Neuro General: patient alert and patient oriented x3 Extrem General: full ROM Psych Appearance: grossly normal Mental Status: mental status grossly normal Assessment and Plan Assessment and Plan (1) Adenocarcinoma of cecum: Status: Acute (2) Iron deficiency anemia: Status: Acute Qualifiers: Iron deficiency anemia type: chronic blood loss Qualified Code(s): D50.0 - Iron deficiency anemia secondary to blood loss (chronic) Comment: Iron profile getting worse while on oral iron. Plan: The patient has iron deficiency anemia and underwent EGD and colonoscopy. The patient was found to have an ulcerated area in the cecum and this was biopsied and came back as adenocarcinoma. The patient had CT of the chest abdomen pelvis which were normal and CEA was 4.8. I discussed laparoscopic right hemicolectomy with the patient in detail. I discussed the risks of the procedure including but not noted to bleeding, infection, injury to surrounding organs such as the bladder, kidney, ureter or small bowel. Patient understands the risks and is when to proceed with laparoscopic right hemicolectomy with possible conversion to open. I will recheck a hemoglobin next week and proceed with surgery 2 weeks from now. If the patient is anemic next week I will have her sent for transfusion prior to surgery. Patient has been started on iron supplementation. I will have her stop her Coumadin 5 days prior to surgery. Cam Noyola MD Pager: [facility] [address] [place] [address], [address] [place] [address] Office: I have re-examined the patient. There are no clinical changes since date of exam.
[2020-10-29] MEDS: Gabapentin 600 MG Tablet PO (11:08)
[2020-10-29] MEDS: Acetaminophen 500 MG Tablet 1000 MG PO ×3 (11:08→23:03)
[2020-10-29] MEDS: Lactated Ringers 1,000 ML 40 ML IV ×2 (11:10→13:30)
[2020-10-29 11:31] LABS: Bedside Glucose 106 mg/dL (70-110)
[2020-10-29] MEDS: BUPIVACAINE LIPOSOME/PF 20 ML VIAL OPERA.SITE (14:10)
--- NOTE | 2020-10-29 14:29 | PCM.OPRPT ---
Problems Associated Problem List Diagnoses (1) Adenocarcinoma of cecum: Report of Operation Date of Procedure: 10/29/20 Pre-Operative Diagnosis: Colon cancer of the cecum Post-Operative Diagnosis: Same Surgery/Procedure Performed:: Laparoscopic right hemicolectomy with ileocolonic anastomosis Specimen's removed: Right hemicolon Description of Procedure: Patient was brought back to the operating room and general anesthesia was induced. The abdomen was prepped and draped in usual sterile fashion. A small midline incision was made superior to the umbilicus deep to the fascia was was elevated and incised. 12 mm port was placed into the abdomen and the abdomen was insufflated to 15 mmHg. Next the abdomen was inspected. A 5 mm port was placed in the left lower quadrant and under direct visualization and in the left upper quadrant under direct visualization. A laparoscopic tap block was performed. Next the cecum was identified. The terminal ileum was identified as well. The attachments to the right lateral sidewall were taken down using the Enseal mobilizing the right colon. Next the transverse colon was identified using the Enseal the hepatic flexure was taken down. There is good mobility to the right side of the colon. Next the midline incision the superior abdomen was elongated slightly and a wound protector was placed. The cecum was delivered through the incision and the terminal ileum was divided approximately 15 cm proximal to the ileocecal valve using a ANNELISE stapler. The transverse colon was inspected and the right middle colic vessel was identified and just proximal to this the colon was divided using a ANNELISE stapler. Next the colonic mesentery was taken down using the Enseal until the right colonic pedicle was identified. The artery and vein were each identified and suture-ligated using 0 silk suture. There is good hemostasis. The specimen was removed. Next the corner of the staple line to the small bowel and the colon were removed and a 75 ANNELISE stapler was used to perform an anastomosis between the ileum and the transverse colon. The stapler was removed and the staple line was inspected and had good hemostasis. A TX 60 stapler was used to close the enterostomy. There is good hemostasis and a crotch suture was placed using 3-0 silk. The mesenteric defect was closed using a running 3-0 Vicryl suture. The anastomosis was delivered back into the abdomen. Next gowns gloves were changed. All of the skin incisions were injected with the local anesthetic. The fascia at the midline incision was closed with two #1 PDS sutures meeting in the middle. The subcutaneous tissue was irrigated and suctioned dry and good hemostasis was obtained using electrocautery. Next the skin incisions were closed using interrupted 4-0 Monocryl sutures and Steri-Strips. Bandages were applied and the patient was awoken and taken to PACU in stable condition and tolerated the procedure well. Admit VTE Documentation VTE Mechan Device Prophylaxis: SCD's
[2020-10-29] MEDS: 0.9% Normal Saline 1,000 ML 999 ML IV (18:44)
[2020-10-29 19:37] LABS: Hematocrit 28.8 % (37-47)
[2020-10-29] MEDS: Docusate Sodium 100 MG Capsule PO (21:28)
[2020-10-29] MEDS: Pravastatin 40 MG Tablet PO (21:28)
[2020-10-29 22:52] LABS: Anion Gap 9 (5-15); BUN 23 mg/dL (7-18); BUN/Creat Ratio 11.3 RATIO (10-20); Chloride 104 mmol/L (98-107); Creatinine, Serum 2.03 mg/dL (0.55-1.02); EST Glomerular Filtration Rate 25 mL/min (>60); Est Glom Filt Rate - Afr Amer 31 mL/min (>60); Estimated Creatinine Clearance 25.18 ml/min; Glucose 161 mg/dL (74-106); Potassium 3.7 mmol/L (3.5-5.1); Sodium Level 137 mmol/L (136-145)
--- NOTE | 2020-10-29 23:16 | PN.HOSP_ITS ---
Documented by User: Marilyn Galloway, [email or web address]-C 10/29/20 23:35 Subjective Subjective Patient was seen by Dr. Noyola today and underwent a hemicolectomy. Postoperatively patient has had ongoing hypotension despite receiving 1.5 L of normal saline bolus. Dr. Crandall reports that initially patient had a sco polamine patch on postoperatively however when she was noted to have hypotension that was removed. Patient states that she is not feeling symptomatic and reports that she took her isosorbide and metoprolol this morning. Objective Data Objective Data Vital Signs: Vital Signs Temp Pulse Resp BP Pulse Ox 97.7 F L 80 18 104/67 100 10/29/20 22:15 10/29/20 23:01 10/29/20 22:15 10/29/20 23:01 10/29/20 22:15 Oxygen Flow Rate (L/min) 2 Oxygen Delivery Method Nasal Cannula Weight: 144 lb 9.972 oz Body Mass Index (BMI) 31.3 Intake & Output: Intake and Output for Last 24 Hours 10/27/20 10/28/20 10/29/20 23:59 23:59 23:59 Intake Total 2955.33 / 2955.33 Balance 2955.33 / 2955.33 Lab / Micro Data Result Diagrams: 10/29/20 19:22 10/29/20 22:15 Labs: Laboratory Results - last 24 hr 10/29/20 10:36: POC PT 15.0 H, INR 1.3 10/29/20 10:36: POC Glucose 106 10/29/20 19:22: Hgb 9.0 L, Hct 28.8 L 10/29/20 22:15: Sodium 137, Potassium 3.7, Chloride 104, Carbon Dioxide 24.0, Anion Gap 9, BUN 23 H, Creatinine 2.03 H, Estim Creat Clear Calc 25.18, Est GFR (MDRD) Af Amer 31 L, Est GFR (MDRD) Non-Af 25 L, BUN/Creatinine Ratio 11.3, Glucose 161 H, Calcium 9.0 Physical Exam Const alert, oriented x3 and no apparent distress General Appearance: cooperative and comfortable HEENT normocephalic and head/scalp atraumatic Eyes conjunctivae normal and no scleral icterus Neck supple and no JVD General: trachea midline Chest inspection of chest normal Resp normal respiratory effort, normal air movement and clear to auscultation bilaterally Cardio regular rate, regular rhythm, S1 normal heart sound and S2 normal heart sound Peripheral Pulses: pulses 2+ throughout GI normal to inspection, nondistended, normoactive bowel sounds and soft to palpation Palpation: tender other (At surgical site only) Extremity normal to inspection, full ROM, normal capillary refill and no clubbing, c yanosis or edema Skin no rashes or lesions noted Neuro oriented x3, moves all extremities, no focal motor deficits and no sensory deficits noted Psych mental status grossly normal, thought process normal, cooperative, affect normal and speech normal Assessment & Plan Assessment/Plan (1) Hypotension after procedure: PLAN: 1. Hypotension -Likely due to dehydration as patient has elevated creatinine when compared to previous value. Patient currently asymptomatic and states that other than feeling tired she feels fine. -Will order another 500 mL normal saline bolus. If patient blood pressure stable at that time we will continue to monitor and I would recommend reevaluation for administration of morning medications. -Other contributing factor would be patient took all blood pressure medications this morning including isosorbide which is long-acting nitroglycerin and may be contributing to postoperative hypotension -Per Dr. Noyola nighttime Lasix, isosorbide, metoprolol were held. 2. Anemia -Chronic for patient, daily CBC ordered, trend hemoglobin. -Patient has no signs or symptoms of bleeding. This patient was seen by MANOLO Martinez under the supervision of Dr. Patel. Documented by User: Dr. Cosmo Patel MD 10/30/20 01:15 Objective Data Lab / Micro Data Result Diagrams: 10/29/20 19:22 10/29/20 22:15 Charges/Coding Addendum Addendum: Patient was seen and examined independently. I agree with assessment and plan by MANOLO Martinez In summary patient is a 74-year-old female with a significant history of atrial fibrillation, bradycardia, diastolic dysfunction; mitral valve insufficiency, hypertension, pulmonary hypertension; adenocarcinoma of cecum status post col ectomy postop day 1 who was noted to have hypotension post surgery. Her blood pressure was 80s over 30s. Also patient complaining of a Vertigo. Initially was on scopolamine patch but with hypotension scopolamine patch was discontinued. Of note had a hemoglobin 3 days before surgery was 10.4 and after surgery hemoglobin was 9.0. Physical exam: General: Well-nourished, well-developed, no acute distress Head: Normocephalic, atraumatic, no tenderness Eyes: PERRLA, EOMI ENT, no trauma, moist mucous membranes, no rhinorrhea Neck: Nontender, full range of motion, no spinal tenderness, deformities, step- off CVS: Irregularly irregular rate and rhythm Respiratory no acute distress, clear to auscultation bilaterally, chest wall nontender, no wheezing Abdomen: Dressing dry and intact on mid abdomen. Soft, nontender, nondistended, normal bowel sounds, no masses : Deferred Back: Nontender, no CVA tenderness, no midline spinal tenderness, deformities, step-offs Extremities: Nontender full range of motion, no trauma Skin: Normal color, no trauma, abrasions Neuro: Alert, oriented, cranial nerves II through XII grossly intact. Psychiatry: Normal mood. Normal affect. Not depressed. Not anxious. Assessment and plan Hypotension: Likely multifactorial from blood pressure medication especially isosorbide which is long-acting; and anesthetic effects; and possible dehydration.. I agree with holding blood pressure medicines including metoprolol and Lasix. We will check a.m. cortisol to make sure that is not poor stress response. Trend blood pressures and put patient on telemetry. BMP ordered Patient bolused with another 500 mL of normal saline after normal saline bolus ordered by surgeon post surgery. Heart failure with preserved ejection fraction Review of records shows the patient had surface echocardiogram on 06/08/2020. Surface echo showed ejection fraction of 55%. Right ventricular systolic pressure was 42 mmHg. Moderate tricuspid valve insufficiency was noted. Moderately severe mitral valve insufficiency was noted. Does not appear to be in acute decompensation. Will place on telemetry. Cecal adenocarcinoma status post colectomy Managed by general surgery. Thank you for the consult internal medicine service will continue to follow. Visit Charges OBSV E&M: 97506 Initial observation care L2
[2020-10-30] VITALS (19 sets, daily range): BP systolic 94–110; BP diastolic 44–63; PULSE 58–104; RESP 16–18; TEMP 35.7–37.3; O2SAT 95–99
[2020-10-30] MEDS: Acetaminophen 500 MG Tablet 1000 MG PO ×4 (05:06→23:22)
[2020-10-30 06:18] LABS: Hematocrit 31.3 % (37-47); Hemoglobin 9.2 g/dL (12.0-15.0); Mean Corp Hgb Conc 29.4 g/dL (32-36); Mean Corpuscular Hgb 27.4 pg (27.0-32.0); Mean Corpuscular Volume 93.2 fL (81-99); Mean Platelet Vol. 9.1 fl (6.2-12.0); Platelet Count 191 K/mm3 (150-450); RBC Distribution Width CV 18.6 % (11.6-14.6); RBC Distribution Width SD 63.7 fl (35.1-43.9); Red Blood Count 3.36 M/mm3 (4.2-5.4); White Blood Count 8.1 K/mm3 (4.4-11.0)
[2020-10-30 06:42] LABS: Anion Gap 7 (5-15); BUN 25 mg/dL (7-18); BUN/Creat Ratio 13.9 RATIO (10-20); Calcium,Total 8.8 mg/dL (8.5-10.1); Chloride 104 mmol/L (98-107); EST Glomerular Filtration Rate 29 mL/min (>60); Est Glom Filt Rate - Afr Amer 35 mL/min (>60); Glucose 137 mg/dL (74-106); Potassium 4.1 mmol/L (3.5-5.1); Sodium Level 135 mmol/L (136-145)
--- NOTE | 2020-10-30 06:49 | PN.SURG_ITS ---
Subjective Subjective Patient reports no abdominal pain although she did have dizziness overnight and hypotension. The patient did urinate this morning and says it was dark. Patient not having any nausea or vomiting. Objective Data Objective Data Vital Signs: Vital Signs Temp Pulse Resp BP Pulse Ox 97.6 F L 72 18 110/63 97 10/30/20 04:59 10/30/20 04:59 10/30/20 04:59 10/30/20 04:59 10/30/20 04:59 Oxygen Flow Rate (L/min) 2 Oxygen Delivery Method Nasal Cannula Weight: 144 lb 9.972 oz Body Mass Index (BMI) 31.3 Intake & Output: Intake and Output for Last 24 Hours 10/28/20 10/29/20 10/30/20 23:59 23:59 23:59 Intake Total 2955.33 / 3195.33 440 / 440 Output Total 300 / 300 Balance 2955.33 / 3195.33 140 / 140 Lab / Micro Data Result Diagrams: 10/30/20 05:55 10/30/20 05:55 Labs: Laboratory Results - last 24 hr 10/29/20 10:36: POC PT 15.0 H, INR 1.3 10/29/20 10:36: POC Glucose 106 10/29/20 19:22: Hgb 9.0 L, Hct 28.8 L 10/29/20 22:15: Sodium 137, Potassium 3.7, Chloride 104, Carbon Dioxide 24.0, Anion Gap 9, BUN 23 H, Creatinine 2.03 H, Estim Creat Clear Calc 25.18, Est GFR (MDRD) Af Amer 31 L, Est GFR (MDRD) Non-Af 25 L, BUN/Creatinine Ratio 11.3, Glucose 161 H, Calcium 9.0 10/30/20 05:55: WBC 8.1, RBC 3.36 L, Hgb 9.2 L, Hct 31.3 L, MCV 93.2, MCH 27.4, MCHC 29.4 L D, RDW Std Deviation 63.7 H, RDW Coeff of Oralia 18.6 H, Plt Count 191, MPV 9.1 10/30/20 05:55: Sodium 135 L, Potassium 4.1, Chloride 104, Carbon Dioxide 24.0, Anion Gap 7, BUN 25 H, Creatinine 1.80 H, Estim Creat Clear Calc 28.40, Est GFR (MDRD) Af Amer 35 L, Est GFR (MDRD) Non-Af 29 L, BUN/Creatinine Ratio 13.9, Glucose 137 H, Calcium 8.8 Physical Exam Const oriented x3 and no apparent distress Resp normal respiratory effort GI normal to inspection, nondistended, normoactive bowel sounds Assessment & Plan Assessment/Plan (1) Adenocarcinoma of cecum: PLAN: Patient is doing better this morning. She was having dizziness last night and hypotension. She was given 1.5 L of bolus. The patient started urinating this morning. The creatinine was 2 yesterday evening is now decreased to 1.8. The patient feels hungry and she is having no nausea or vomiting and no abdominal pain. I will advance her to full liquid diet with plans to advance to regular if she tolerates this and starts passing flatus today. Discharge either today or tomorrow. I did consult the hospital service to ensure that there is no medication interaction causing her hypotension and it appears that it was due to dehydration. Hemoglobin is stable today. Cam Noyola MD Pager: [facility] [address] [place] [address], [address] [place] [address] Office:
[2020-10-30] MEDS: Lisinopril 40 MG Tablet PO (09:25)
[2020-10-30] MEDS: Pantoprazole Sodium 40 MG Tablet PO (09:25)
[2020-10-30] MEDS: Potassium Chloride Oral Tablet 20 MEQ PO (09:25)
[2020-10-30] MEDS: Docusate Sodium 100 MG Capsule PO ×2 (09:26→20:59)
[2020-10-30] MEDS: Furosemide 80 MG Tablet PO ×2 (09:26→18:42)
[2020-10-30] MEDS: Metoprolol Tartrate 100 MG Tablet PO (09:26)
[2020-10-30] MEDS: Isosorbide Mononitrate 30 MG Tablet PO (09:26)
[2020-10-30] MEDS: Ensure Clear 120 ML Liquid PO (09:37)
--- NOTE | 2020-10-30 12:20 | CASEMGMT ---
RN CM Face to Face with patient for initial transition planning/care coordination assessment. RN CM introduced self and role at [facility]. Patient sitting in chair, alert and oriented. Patient willing to participate in assessment and is able to answer all questions appropriately. Care providers, pharmacy, and demographics verified. Patient wishes to discharge home, denies need for home health at this time. Patient states she has no further needs or concerns at this time. CM to follow for discharge planning needs that may arise. 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 Patient states she is independent at home. Transportation: self, friend, son, PRIYANKA DME/HHC: patient states she has shower chair at home. Patient denies HHC or SNF Disposition Plan: Patient to discharge home with family support and follow-up plans in place. Marita MCGRAW, RN, CM
[2020-10-30] MEDS: Lactated Ringers 1,000 ML 40 ML IV (15:33)
--- NOTE | 2020-10-30 20:16 | PN.HOSP_ITS ---
Subjective Subjective Patient was seen and examined today, I briefly talked with general surgery about her care, patient's blood pressure has been running in the 100s systolic today, I have decided to reduce the patient's Lasix and Zestril, patient's already received her evening dose of Lasix at the time of my dictation tonight. I had the nurse hold the patient's Imdur tonight only. Objective Data Objective Data Vital Signs: Vital Signs Temp Pulse Resp BP Pulse Ox 99.2 F H 103 H 18 105/44 L 99 10/30/20 16:20 10/30/20 19:29 10/30/20 16:20 10/30/20 16:20 10/30/20 16:20 Oxygen Flow Rate (L/min) 1 Oxygen Delivery Method Room Air Weight: 65.6 kg Body Mass Index (BMI) 31.3 Intake & Output: Intake and Output for Last 24 Hours 10/28/20 10/29/20 10/30/20 23:59 23:59 23:59 Intake Total 2955.33 / 3195.33 2970.67 / 2970.67 Output Total 600 / 600 Balance 2955.33 / 3195.33 2370.67 / 2370.67 Medical Nutrition Assessment Dietitian: Nutrition Therapy Diagnosis Start: 10/30/20 13:43 Freq: Status: Active Protocol: Document 10/30/20 15:32 RMA (Rec: 10/30/20 15:32 RMA [id number]) Nutrition Malnutrition Evidence of Malnutrition Exists No Intake Problem Inadequate Oral Intake Etiology related to altered GI function /post-op for colon cancer Signs/Symptoms as evidenced by clear/full liquid diet at this time. Status Active Problem Recommendation Dietitian Recommendations/Changes Advance diet as tolerated and medically able to Transitional with goal diet of Cardiac. Will d/c ensure clear w/ medpass. Will add 120ml ensure clear TID w/ meals. Additional ONS as needed once diet advanced. Lab / Micro Data Result Diagrams: 10/30/20 05:55 10/30/20 05:55 Labs: Laboratory Results - last 24 hr 10/29/20 22:15: Sodium 137, Potassium 3.7, Chloride 104, Carbon Dioxide 24.0, Anion Gap 9, BUN 23 H, Creatinine 2.03 H, Estim Creat Clear Calc 25.18, Est GFR (MDRD) Af Amer 31 L, Est GFR (MDRD) Non-Af 25 L, BUN/Creatinine Ratio 11.3, Glucose 161 H, Calcium 9.0 10/30/20 05:55: WBC 8.1, RBC 3.36 L, Hgb 9.2 L, Hct 31.3 L, MCV 93.2, MCH 27.4, MCHC 29.4 L D, RDW Std Deviation 63.7 H, RDW Coeff of Oralia 18.6 H, Plt Count 191, MPV 9.1 10/30/20 05:55: Sodium 135 L, Potassium 4.1, Chloride 104, Carbon Dioxide 24.0, Anion Gap 7, BUN 25 H, Creatinine 1.80 H, Estim Creat Clear Calc 28.40, Est GFR (MDRD) Af Amer 35 L, Est GFR (MDRD) Non-Af 29 L, BUN/Creatinine Ratio 13.9, Glucose 137 H, Calcium 8.8 10/30/20 05:55: Cortisol 1.90 L Physical Exam Const alert, oriented x3, no apparent distress and healthy appearing General Appearance: cooperative, well kempt and well developed Orientation / Consciousness: awake, oriented to person, oriented to place and oriented to time HEENT normocephalic and moist oral mucous membranes Eyes PERRL, EOMs intact bilaterally and conjunctivae normal Neck nuchal rigidity, supple, no JVD, thyroid normal and no carotid bruits General: trachea midline Resp normal respiratory effort and clear to auscultation bilaterally Auscultation: Negative for rales, rhonchi or wheezes Cardio regular rate, regular rhythm, no murmurs, no rub and no gallops Extremity no clubbing, cyanosis or edema Skin no rashes or lesions noted General Skin Exam: no breakdown Neuro oriented x3, CN's II-XII intact bilaterally, no focal motor deficits and no sensory deficits noted Sensorium / Orientation: awake and alert Speech: speech normal Psych thought process normal and affect normal Assessment & Plan Assessment/Plan (1) Hypotension after procedure: PLAN: 1. Hypotension-etiology unclear at this point, I will hold the patient's blood pressure medications and continue to observe #2 pulmonary hypertension #3 paroxysmal atrial fibrillation #4 postop day #1 laparoscopic right hemicolectomy with ileocolonic anastomosis secondary to colon cancer of the cecum #5 coronary artery disease-non angiographically significant #6 hyperlipidemia #7 history of essential hypertension-I again due to the patient's hypotension, I will hold the patient's blood pressure medications #8 anemia secondary to expected blood loss from surgery on a backdrop of chronic anemia-iron deficiency anemia-possibly secondary to colon cancer of the cecum- patient does not require transfusion at this time, CBC will be rechecked tomorrow Charges/Coding Visit Charges Inpatient E&M: 22844 Subs Hosp L2
[2020-10-30] MEDS: Pravastatin 40 MG Tablet PO (20:59)
[2020-10-31] VITALS (16 sets, daily range): BP systolic 85–111; BP diastolic 50–68; PULSE 75–111; RESP 16–18; TEMP 36.4–37.3; O2SAT 98–100
[2020-10-31] MEDS: Acetaminophen 500 MG Tablet 1000 MG PO ×3 (05:04→18:03)
[2020-10-31] MEDS: Potassium Chloride Oral Tablet 20 MEQ PO (08:51)
[2020-10-31] MEDS: Metoprolol Tartrate 100 MG Tablet PO ×2 (09:32→21:33)
[2020-10-31] MEDS: Pantoprazole Sodium 40 MG Tablet PO (09:34)
--- NOTE | 2020-10-31 10:42 | PN.SURG_ITS ---
Subjective Subjective Patient seems to be doing well. She is tolerating full liquids with no nausea vomiting or abdominal pain. She is passing flatus and having bowel movements. Objective Data Objective Data Vital Signs: Vital Signs Temp Pulse Resp BP Pulse Ox 98.5 F 80 18 89/59 L 99 10/31/20 08:52 10/31/20 09:32 10/31/20 08:52 10/31/20 08:52 10/31/20 08:52 Oxygen Flow Rate (L/min) 1 Oxygen Delivery Method Room Air Weight: 144 lb 9.972 oz Body Mass Index (BMI) 31.3 Intake & Output: Intake and Output for Last 24 Hours 10/29/20 10/30/20 10/31/20 23:59 23:59 23:59 Intake Total 2955.33 / 3195.33 2970.67 / 3220.67 250 / 250 Output Total 600 / 900 800 / 800 Balance 2955.33 / 3195.33 2370.67 / 2320.67 -550 / -550 Medical Nutrition Assessment Dietitian: Nutrition Therapy Diagnosis Start: 10/30/20 13:43 Freq: Status: Active Protocol: Document 10/30/20 15:32 RMA (Rec: 10/30/20 15:32 RMA [id number]) Nutrition Malnutrition Evidence of Malnutrition Exists No Intake Problem Inadequate Oral Intake Etiology related to altered GI function /post-op for colon cancer Signs/Symptoms as evidenced by clear/full liquid diet at this time. Status Active Problem Recommendation Dietitian Recommendations/Changes Advance diet as tolerated and medically able to Transitional with goal diet of Cardiac. Will d/c ensure clear w/ medpass. Will add 120ml ensure clear TID w/ meals. Additional ONS as needed once diet advanced. Lab / Micro Data Result Diagrams: 10/30/20 05:55 10/30/20 05:55 Physical Exam Const oriented x3 and no apparent distress GI normal to inspection, nondistended, normoactive bowel sounds Assessment & Plan Assessment/Plan (1) Adenocarcinoma of cecum: PLAN: Patient is doing well after right hemicolectomy. She is now tolerating a diet and she was advanced to a regular diet. She will be di scharged home today. Cam Noyola MD Pager: [facility] [address] [place] [address], [address] [place] [address] Office:
--- NOTE | 2020-10-31 10:43 | PCM.DC.SUM ---
Providers Date of Admission: 10/29/20 Primary Care Physician: Dr. Cassius Monaco MD Consultations 10/30/20 07:22 Consult: Hospitalist Routine Consulting Provider: Porfirio Mortensen Reason for Consult: hypotension, med mgmt EMERGENT Consult: No MD Notified: Yes Date Notified: 10/30/20 Time Notified: 07:22 Method of Notification: Verbal Reason For Visit: RT LAP SHARDA COLECTOMY Diagnosis Discharge Diagnosis (1) Adenocarcinoma of cecum: Status: Acute Code(s): C18.0 - Malignant neoplasm of cecum Medications at Discharge Home Medications alendronate 70 mg tablet 70 mg PO QWEEK 06/02/19 potassium chloride 20 mEq tablet,extended release 20 meq PO DAILY #90 tab 01/13/20 ergocalciferol (vitamin D2) 1,000 unit tablet 1 tab PO DAILY tab 05/28/20 pravastatin 40 mg tablet 40 mg PO QHS tab 05/28/20 furosemide 40 mg tablet 80 mg PO BID #360 tab 05/31/20 lisinopril 40 mg tablet 40 mg PO DAILY 05/31/20 metoprolol tartrate 100 mg tablet 100 mg PO BID tablet 07/13/20 isosorbide mononitrate 30 mg tablet,extended release 24 hr 30 mg PO BID tab 08/17/20 warfarin 5 mg PO DAILY 10/22/20 Sennosides [Senna] 8.6 mg PO QHS 10/29/20 omeprazole 40 mg PO DAILY 10/29/20 ibuprofen 600 mg PO Q6H PRN PRN #0 tab 10/31/20 Hospital Course Summary of Care Provided Hospital Course: Patient was admitted after elective right hemicolectomy. She tolerated the procedure well. She required bolus overnight but then started having good urine output. Patient was a started on a clear liquid diet when she was tolerating a clear liquid diet and passing flatus she was slowly advanced and when she was tolerating diet she was discharged home. Medical Records Data Medical Nutrition Assessment Dietitian: Nutrition Therapy Diagnosis Start: 10/30/20 13:43 Freq: Status: Active Protocol: Document 10/30/20 15:32 RMA (Rec: 10/30/20 15:32 RMA [id number]) Nutrition Malnutrition Evidence of Malnutrition Exists No Intake Problem Inadequate Oral Intake Etiology related to altered GI function /post-op for colon cancer Signs/Symptoms as evidenced by clear/full liquid diet at this time. Status Active Problem Recommendation Dietitian Recommendations/Changes Advance diet as tolerated and medically able to Transitional with goal diet of Cardiac. Will d/c ensure clear w/ medpass. Will add 120ml ensure clear TID w/ meals. Additional ONS as needed once diet advanced. Weight / BMI Weight Weight: 144 lb 9.972 oz Body Mass Index (BMI) 31.3 ABG / Lab / Microbiology Data Result Diagrams: 10/30/20 05:55 10/30/20 05:55 D/C Instructions Discharge Diet: Light diet - advance as tolerated Discharge Activity: May Not Drive (No driving for 1 week or while taking narcotic pain meds.) and May Shower Lifting Restrictions: 20 lbs for 4 weeks Call your doctor if your incision/area has: Continuous Slow Oozing, Sudden Increased Bleeding, Increased Pain/ Swelling, Increased Redness, Foul Smelling Discharge and Swelling at the incision site Call your doctor if you observe: Fever of 101 or Higher Suture Line Care: Avoid Pulling/Pushing and Avoid Pinching/Bending Remove Dressing in: 2 days Cleanse incision/area with: Soap & Water Please Follow Up With: Cam Noyola MD When: Please call to schedule 2 week follow up appointment. [phone] Meaningful Use Info Meaningful Use Diagnoses (Choose all that apply): None applicable Discharge Plan Admission Admit Date/Time: 10/29/20 10:10 Attending Provider: Cam Noyola Primary Care Provider: Cassius Monaco Chi Consulting Providers: Porfirio Mortensen Instructions Additional Instructions / Restrictions: Resume coumadin today Discharge Orders/Prescriptions Prescriptions: New ibuprofen 600 mg Tablet 600 mg PO Q6H PRN PRN (Reason: Pain Score 1-10) Qty: 0 RF: 0 Continued alendronate 70 mg tablet 70 mg PO QWEEK RF: 0 ergocalciferol (vitamin D2) 1,000 unit tablet 1,000 unit tablet 1 tab PO DAILY RF: 0 pravastatin 40 mg tablet 40 mg PO QHS RF: 0 Hold Instructions: Leg weakness metoprolol tartrate 100 mg tablet 100 mg PO BID RF: 0 isosorbide mononitrate 30 mg tablet extended release 24 hr 30 mg PO BID RF: 0 warfarin 5 mg tablet 5 mg PO DAILY RF: 0 omeprazole 40 mg capsule,delayed release(DR/EC) 40 mg PO DAILY RF: 0 Sennosides [Senna] 8.6 MG tablet 8.6 mg PO QHS RF: 0 potassium chloride 20 mEq tablet extended release 20 meq PO DAILY Qty: 90 RF: 3 lisinopril 40 mg tablet 40 mg PO DAILY RF: 0 furosemide 40 mg tablet 80 mg PO BID Qty: 360 RF: 3 Referrals / Follow Up: Cassius Monaco Chi, MD [Primary Care Provider] - Disposition Disposition (needs filled in before D/C Order can be placed): Home, Self Care
[2020-10-31] MEDS: Lactated Ringers 1,000 ML 40 ML IV (15:35)
--- NOTE | 2020-10-31 18:32 | PN.HOSP_ITS ---
Subjective Subjective Patient was seen and examined today, her blood pressure has been low today I and I held all her blood pressure medication. I have decided that the time of this dictation that I will transfuse the patient 1 unit of packed red blood cells, patient's hemoglobin this morning was 9.2. Objective Data Objective Data Vital Signs: Vital Signs Temp Pulse Resp BP Pulse Ox 99.2 F H 80 16 91/62 98 10/31/20 13:52 10/31/20 15:35 10/31/20 13:52 10/31/20 13:52 10/31/20 13:52 Oxygen Flow Rate (L/min) 1 Oxygen Delivery Method Room Air Weight: 65.6 kg Body Mass Index (BMI) 31.3 Intake & Output: Intake and Output for Last 24 Hours 10/29/20 10/30/20 10/31/20 23:59 23:59 23:59 Intake Total 2955.33 / 3195.33 2970.67 / 3220.67 1671.33 / 1671.33 Output Total 600 / 900 800 / 800 Balance 2955.33 / 3195.33 2370.67 / 2320.67 871.33 / 871.33 Medical Nutrition Assessment Dietitian: Nutrition Therapy Diagnosis Start: 10/30/20 13:43 Freq: Status: Active Protocol: Document 10/30/20 15:32 RMA (Rec: 10/30/20 15:32 RMA [id number]) Nutrition Malnutrition Evidence of Malnutrition Exists No Intake Problem Inadequate Oral Intake Etiology related to altered GI function /post-op for colon cancer Signs/Symptoms as evidenced by clear/full liquid diet at this time. Status Active Problem Recommendation Dietitian Recommendations/Changes Advance diet as tolerated and medically able to Transitional with goal diet of Cardiac. Will d/c ensure clear w/ medpass. Will add 120ml ensure clear TID w/ meals. Additional ONS as needed once diet advanced. Lab / Micro Data Result Diagrams: 10/30/20 05:55 10/30/20 05:55 Physical Exam Const alert, oriented x3, no apparent distress and healthy appearing General Appearance: cooperative, well kempt and well developed Orientation / Consciousness: awake, oriented to person, oriented to place and oriented to time HEENT normocephalic and moist oral mucous membranes Eyes PERRL, EOMs intact bilaterally and conjunctivae normal Neck nuchal rigidity, supple, no JVD, thyroid normal and no carotid bruits General: trachea midline Resp normal respiratory effort and clear to auscultation bilaterally Auscultation: Negative for rales, rhonchi or wheezes Cardio regular rate, regular rhythm, no murmurs, no rub and no gallops Extremity no clubbing, cyanosis or edema Skin no rashes or lesions noted General Skin Exam: no breakdown Neuro oriented x3, CN's II-XII intact bilaterally, no focal motor deficits and no sensory deficits noted Sensorium / Orientation: awake and alert Speech: speech normal Psych thought process normal and affect normal Assessment & Plan Assessment/Plan (1) Hypotension after procedure: PLAN: 1. Hypotension-etiology unclear at this point, I will hold the patient's blood pressure medications, I have decided to transfuse the patient due to her hypotension #2 pulmonary hypertension #3 paroxysmal atrial fibrillation #4 postop day #1 laparoscopic right hemicolectomy with ileocolonic anastomosis secondary to colon cancer of the cecum #5 coronary artery disease-non angiographically significant #6 hyperlipidemia #7 history of essential hypertension-I again due to the patient's hypotension, I will hold the patient's blood pressure medications #8 anemia secondary to expected blood loss from surgery on a backdrop of chronic anemia-iron deficiency anemia-possibly secondary to colon cancer of the cecum- due to the patient's hypotension, I have decided to transfuse the patient 1 unit of packed red blood cells, labs will be rechecked tomorrow Charges/Coding Visit Charges Inpatient E&M: 32707 Subs Hosp L2
[2020-10-31] MEDS: Pravastatin 40 MG Tablet PO (21:33)
[2020-11-01] VITALS (8 sets, daily range): BP systolic 110–152; BP diastolic 60–87; PULSE 54–106; RESP 16–20; TEMP 36.3–36.9; O2SAT 97–100
[2020-11-01] MEDS: Acetaminophen 500 MG Tablet 1000 MG PO ×2 (00:20→05:52)
--- NOTE | 2020-11-01 01:02 | NURSING ---
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
[2020-11-01 05:30] LABS: Absolute Lymphocyte Count 1.09 X10^3/uL (0.83-4.51); Absolute Neutrophil Count 4.1 X10^3/uL (2.0-7.7); Basophil# 0.02 X10^3/uL; Basophil% 0.3 % (0-1); Eosinophil# 0.39 X10^3/uL; Eosinophils% 6.3 % (0-5); Hematocrit 30.3 % (37-47); Hemoglobin 9.6 g/dL (12.0-15.0); Lymphocyte # 1.09 X10^3/ul (0.83-4.51); Lymphocyte % 17.6 % (19-41); Mean Corp Hgb Conc 31.7 g/dL (32-36); Mean Corpuscular Hgb 28.8 pg (27.0-32.0); Mean Platelet Vol. 8.7 fl (6.2-12.0); Monocyte# 0.54 X10^3/uL; Monocyte% 8.7 % (0-10); NRBC Flagged by Analyzer 0 % (0-5); Neutrophil # 4.12 X10^3/uL (2.7-7.7); Neutrophil % 66.5 % (47-70); Platelet Count 172 K/mm3 (150-450); RBC Distribution Width CV 18.4 % (11.6-14.6); Red Blood Count 3.33 M/mm3 (4.2-5.4); White Blood Count 6.2 K/mm3 (4.4-11.0)
[2020-11-01 05:56] LABS: Anion Gap 3 (5-15); BUN 21 mg/dL (7-18); BUN/Creat Ratio 21.9 RATIO (10-20); Calcium,Total 8.4 mg/dL (8.5-10.1); Chloride 109 mmol/L (98-107); Creatinine, Serum 0.96 mg/dL (0.55-1.02); EST Glomerular Filtration Rate 60 mL/min (>60); Est Glom Filt Rate - Afr Amer 73 mL/min (>60); Estimated Creatinine Clearance 53.24 ml/min; Glucose 90 mg/dL (74-106); Potassium 4.2 mmol/L (3.5-5.1); Sodium Level 138 mmol/L (136-145)
--- NOTE | 2020-11-01 07:23 | PN.SURG_ITS ---
Subjective Subjective Patient reports she is tolerating a regular diet with no nausea vomiting or abdominal pain Objective Data Objective Data Vital Signs: Vital Signs Temp Pulse Resp BP Pulse Ox 97.3 F L 54 L 16 152/87 H 100 11/01/20 05:55 11/01/20 05:55 11/01/20 05:55 11/01/20 05:55 11/01/20 05:55 Oxygen Flow Rate (L/min) 1 Oxygen Delivery Method Room Air Weight: 144 lb 9.972 oz Body Mass Index (BMI) 31.3 Intake & Output: Intake and Output for Last 24 Hours 10/30/20 10/31/20 11/01/20 23:59 23:59 23:59 Intake Total 2970.67 / 3220.67 2021.33 / 2021.33 400 / 400 Output Total 600 / 900 800 / 800 Balance 2370.67 / 2320.67 1221.33 / 1221.33 400 / 400 Medical Nutrition Assessment Dietitian: Nutrition Therapy Diagnosis Start: 10/30/20 13:43 Freq: Status: Active Protocol: Document 10/30/20 15:32 RMA (Rec: 10/30/20 15:32 RMA [id number]) Nutrition Malnutrition Evidence of Malnutrition Exists No Intake Problem Inadequate Oral Intake Etiology related to altered GI function /post-op for colon cancer Signs/Symptoms as evidenced by clear/full liquid diet at this time. Status Active Problem Recommendation Dietitian Recommendations/Changes Advance diet as tolerated and medically able to Transitional with goal diet of Cardiac. Will d/c ensure clear w/ medpass. Will add 120ml ensure clear TID w/ meals. Additional ONS as needed once diet advanced. Lab / Micro Data Result Diagrams: 11/01/20 05:08 11/01/20 05:08 Labs: Laboratory Results - last 24 hr 10/31/20 19:50: Blood Type O POSITIVE, Antibody Screen NEGATIVE, Crossmatch See Detail 11/01/20 05:08: WBC 6.2, RBC 3.33 L, Hgb 9.6 L, Hct 30.3 L, MCV 91.0, MCH 28.8, MCHC 31.7 L D, RDW Std Deviation 60.0 H, RDW Coeff of Oralia 18.4 H, Plt Count 172, MPV 8.7, Immature Gran % (Auto) 0.600, Neut % (Auto) 66.5, Lymph % (Auto) 17.6 L , Tucker % (Auto) 8.7, Eos % (Auto) 6.3 H, Baso % (Auto) 0.3, Absolute Neuts (auto) 4.1, Absolute Lymphs (auto) 1.09, Nucleated RBC % 0 11/01/20 05:08: Sodium 138, Potassium 4.2, Chloride 109 H, Carbon Dioxide 26.0, Anion Gap 3 L, BUN 21 H, Creatinine 0.96, Estim Creat Clear Calc 53.24, Est GFR (MDRD) Af Amer 73, Est GFR (MDRD) Non-Af 60, BUN/Creatinine Ratio 21.9 H, Glucose 90, Calcium 8.4 L Physical Exam Const oriented x3 and no apparent distress Resp normal respiratory effort Cardio regular rate and regular rhythm GI normal to inspection, nondistended, normoactive bowel sounds Extremity normal to inspection Assessment & Plan Assessment/Plan (1) Adenocarcinoma of cecum: PLAN: The patient had hypotension yesterday afternoon and was thought that this was due to the anemia. The patient was given a blood transfusion. The patient had good blood pressures overnight and this morning. From my standpoint the patient is okay for discharge. If the hospitalist agrees I will reconcile the patient's medications list again and discharge patient home today. Cam Noyola MD Pager: [facility] [address] [place] [address], [address] [place] [address] Office:
[2020-11-01] MEDS: Potassium Chloride Oral Tablet 20 MEQ PO (07:48)
--- NOTE | 2020-11-01 09:08 | PCM.DC ---
Discharge Instructions Diet Discharge Diet: Light diet - advance as tolerated Activity Discharge Activity: Return to Normal Activity Weight Bearing Status: Full weight bearing Dressing / Incision Call your doctor if your incision/area has: Continuous Slow Oozing, Sudden Increased Bleeding, Increased Pain/ Swelling, Increased Redness, Foul Smelling Discharge and Swelling at the incision site Call your doctor if you observe: Fever of 101 or Higher Suture Line Care: Avoid Pulling/Pushing and Avoid Pinching/Bending Cleanse incision/area with: Soap & Water Follow Up Care Please Follow Up With: Cam Noyola MD Test Results: Test results from this visit will be discussed in further detail at your follow-up appointment, if applicable. Discharge Plan Admission Admit Date/Time: 10/29/20 10:10 Primary Reason for Your Visit: colon resection Attending Provider: Cam Noyola Primary Care Provider: Cassius Monaco Chi Consulting Providers: Porfirio Mortensen Instructions Additional Instructions / Restrictions: Resume coumadin today Discharge Orders/Prescriptions Prescriptions: New furosemide 40 mg Tablet 40 mg PO BIDLX Qty: 1 RF: 0 metoprolol tartrate 100 mg Tablet 100 mg PO BID Qty: 1 RF: 0 lisinopril 20 mg Tablet 20 mg PO DAILY Qty: 1 RF: 0 isosorbide mononitrate 30 mg Tablet Extended Release 24 Hr 30 mg PO BID Qty: 1 RF: 0 acetaminophen 500 mg Tablet 1,000 mg PO Q6 PRN (Reason: pain) Qty: 1 RF: 0 Continued alendronate 70 mg tablet 70 mg PO QWEEK RF: 0 ergocalciferol (vitamin D2) 1,000 unit tablet 1,000 unit tablet 1 tab PO DAILY RF: 0 pravastatin 40 mg tablet 40 mg PO QHS RF: 0 Hold Instructions: Leg weakness metoprolol tartrate 100 mg tablet 100 mg PO BID RF: 0 isosorbide mononitrate 30 mg tablet extended release 24 hr 30 mg PO BID RF: 0 warfarin 5 mg tablet 5 mg PO DAILY RF: 0 omeprazole 40 mg capsule,delayed release(DR/EC) 40 mg PO DAILY RF: 0 Sennosides [Senna] 8.6 MG tablet 8.6 mg PO QHS RF: 0 potassium chloride 20 mEq tablet extended release 20 meq PO DAILY Qty: 90 RF: 3 lisinopril 40 mg tablet 40 mg PO DAILY RF: 0 Discontinued furosemide 40 mg tablet 80 mg PO BID Qty: 360 RF: 3 Referrals / Follow Up: Cassius Monaco Chi, MD [Primary Care Provider] - Within 1 Week (get your INR rechecked next Thursday or Thursday) Cam Noyola MD [STAFF PHYSICIAN] - See Referral Note (as directed-call for appointment) Disposition Disposition (needs filled in before D/C Order can be placed): Home, Self Care
[2020-11-01] MEDS: Furosemide 40 MG Tablet PO (09:55)
[2020-11-01] MEDS: Metoprolol Tartrate 100 MG Tablet PO (09:55)
[2020-11-01] MEDS: Pantoprazole Sodium 40 MG Tablet PO (09:55)
[2020-11-01] MEDS: Lisinopril 20 MG Tablet PO (09:55)
[2020-11-01] MEDS: Isosorbide Mononitrate 30 MG Tablet PO (09:55)
--- NOTE | 2020-11-02 07:49 | PCM.PN.HOSP ---
Subjective Subjective New to this entry should be 11/01/2020: Patient was seen and examined today, she appears medically stable for discharge at this time, I talked with general surgery about her care today and told Dr. Noyola that I would complete the patient's discharge instructions because her home medications I feel need to be adjusted due to her hypotension during her hospitalization. Patient has no complaints of any chest pain or shortness of breath today, her blood pressure is better today. Objective Data Objective Data Vital Signs: Vital Signs Temp Pulse Resp BP Pulse Ox 98.4 F 100 18 138/70 H 98 11/01/20 11:47 11/01/20 11:47 11/01/20 11:47 11/01/20 11:47 11/01/20 11:47 Oxygen Flow Rate (L/min) 1 Oxygen Delivery Method Room Air Weight: 65.6 kg Body Mass Index (BMI) 31.3 Intake & Output: Intake and Output for Last 24 Hours 10/31/20 11/01/20 11/02/20 23:59 23:59 23:59 Intake Total 202.33 / 2020.33 400 / 400 Output Total 800 / 800 Balance 1221.33 / 1221.33 400 / 400 Lab / Micro Data Result Diagrams: 11/01/20 05:08 11/01/20 05:08 Physical Exam Narrative Physical Exam Const alert, oriented x3, no apparent distress and healthy appearing General Appearance: cooperative, well kempt and well developed Orientation / Consciousness: awake, oriented to person, oriented to place and oriented to time HEENT normocephalic and moist oral mucous membranes Eyes PERRL, EOMs intact bilaterally and conjunctivae normal Neck nuchal rigidity, supple, no JVD, thyroid normal and no carotid bruits General: trachea midline Resp normal respiratory effort and clear to auscultation bilaterally Auscultation: Negative for rales, rhonchi or wheezes Cardio regular rate, regular rhythm, no murmurs, no rub and no gallops Extremity no clubbing, cyanosis or edema Skin no rashes or lesions noted General Skin Exam: no breakdown Neuro oriented x3, CN's II-XII intact bilaterally, no focal motor deficits and no sensory deficits noted Sensorium / Orientation: awake and alert Speech: speech normal Psych thought process normal and affect normal Assessment & Plan Assessment/Plan (1) Hypotension after procedure: PLAN: 1. Hypotension-etiology unclear at this point, this has resolved presently, patient's home-going medications will be adjusted. Patient appears medically stable for discharge at this time #2 pulmonary hypertension #3 paroxysmal atrial fibrillation #4 postop day #3 laparoscopic right hemicolectomy with ileocolonic anastomosis secondary to colon cancer of the cecum #5 coronary artery disease-non angiographically significant #6 hyperlipidemia #7 history of essential hypertension-I again due to the patient's hypotension, I will hold the patient's blood pressure medications #8 anemia secondary to expected blood loss from surgery on a backdrop of chronic anemia-iron deficiency anemia-possibly secondary to colon cancer of the cecum Charges/Coding Visit Charges Inpatient E&M: 66661 Subs Hosp L2
== END 2020-11-01 12:05 | disposition home or self-care (01) | DRG 330 ==
LOC: ACINP 10:13 → MS3 10-30 08:41
PROVIDERS: Anesthesiology; Nurse Practitioner Family; Admitting Provider Surgery; PCP Family Medicine Geriatric Medicine; Referring Provider Surgery; Visit Provider Surgery
PROC: 0DTF4ZZ Resection of Right Large Intestine, Percutaneous Endoscopic Approach (ICD-10-PCS; CPT 44205; principal; 2020-10-29 12:10)
DX: C18.0 Malignant neoplasm of cecum (principal); I50.32 Chronic diastolic (congestive) heart failure; D62 Acute posthemorrhagic anemia; I95.81 Postprocedural hypotension; I11.0 Hypertensive heart disease with heart failure; I27.20 Pulmonary hypertension, unspecified; I08.1 Rheumatic disorders of both mitral and tricuspid valves; E78.5 Hyperlipidemia, unspecified; I48.0 Paroxysmal atrial fibrillation; I25.10 Atherosclerotic heart disease of native coronary artery without angina pectoris; D50.9 Iron deficiency anemia, unspecified
CPT/HCPCS: 36415; 36416; 80048; 82533; 82962; 83735; 85014; 85018; 85025; 85027; 85610; 86850; 86900; 86901; 86920; 86921; 86922; 88309; 94762; 99251; J7030; J7040; J7120; P9016; C1760; G0463; J2405

== ENCOUNTER 2020-11-13 12:23 | Outpatient (RCR) | payer MEDICARE, OTHER, SELFPAY ==
[2020-09-25 15:33] VITALS: BMI 31.1
[2020-10-29 16:48] VITALS: BMI 31.3
[2020-11-13 13:46] LABS: Absolute Lymphocyte Count 1.08 X10^3/uL (0.83-4.51); Absolute Neutrophil Count 2.9 X10^3/uL (2.0-7.7); Basophil# 0.02 X10^3/uL; Basophil% 0.4 % (0-1); Eosinophil# 0.36 X10^3/uL; Eosinophils% 7.4 % (0-5); Hematocrit 29.8 % (37-47); Hemoglobin 9.6 g/dL (12.0-15.0); Lymphocyte # 1.08 X10^3/ul (0.83-4.51); Lymphocyte % 22.3 % (19-41); Mean Corp Hgb Conc 32.2 g/dL (32-36); Mean Corpuscular Hgb 28.8 pg (27.0-32.0); Mean Corpuscular Volume 89.5 fL (81-99); Mean Platelet Vol. 8.7 fl (6.2-12.0); Monocyte# 0.45 X10^3/uL; Monocyte% 9.3 % (0-10); NRBC Flagged by Analyzer 0 % (0-5); Neutrophil # 2.92 X10^3/uL (2.7-7.7); Neutrophil % 60.2 % (47-70); Platelet Count 292 K/mm3 (150-450); RBC Distribution Width CV 19.5 % (11.6-14.6); RBC Distribution Width SD 63.6 fl (35.1-43.9); Red Blood Count 3.33 M/mm3 (4.2-5.4); White Blood Count 4.9 K/mm3 (4.4-11.0)
[2020-11-13 13:55] LABS: International Normalized Ratio 2.3; Prothrombin Time (Protime)PT. 24.4 SECONDS (11.7-14.9)
[2020-11-13 14:32] LABS: ALB/GLOB Ratio 0.9 RATIO (0.9-2.4); AST(SGOT) 19 U/L (15-37); Alanine Aminotransfer ALT/SGPT 15 U/L (13-56); Albumin, Serum 3.2 g/dL (3.2-5.0); Alkaline Phosphatase 112 U/L (45-117); Anion Gap 6 (5-15); BUN 18 mg/dL (7-18); Calcium,Total 8.6 mg/dL (8.5-10.1); Chloride 106 mmol/L (98-107); Creatinine, Serum 1.06 mg/dL (0.55-1.02); EST Glomerular Filtration Rate 54 mL/min (>60); Est Glom Filt Rate - Afr Amer 65 mL/min (>60); Ferritin 337 ng/mL (8-252); Globulin 3.4 g/dL (2.2-4.2); Glucose 94 mg/dL (74-106); Iron 68 ug/dL (50-170); Iron Binding Capacity,Total 302 ug/dL (250-450); LDH 182 U/L (84-246); Potassium 3.2 mmol/L (3.5-5.1); Protein, Total 6.6 g/dL (6.4-8.2); Sodium Level 141 mmol/L (136-145)
[2020-11-15 07:50] LABS: Transferrin 238 mg/dL (192-364)
== END 2020-11-13 18:00 | disposition home or self-care (01) ==
LOC: LAB 12:23
PROVIDERS: Internal Medicine Medical Oncology; PCP Family Medicine Geriatric Medicine; Referring Provider Internal Medicine Cardiovascular Disease; Visit Provider Internal Medicine Cardiovascular Disease
DX: I48.91 Unspecified atrial fibrillation (principal); D50.0 Iron deficiency anemia secondary to blood loss (chronic); Z79.01 Long term (current) use of anticoagulants
CPT/HCPCS: 36415; 80053; 82728; 83540; 83550; 83615; 84466; 85025; 85610

== ENCOUNTER 2021-01-29 10:14 | Outpatient (RCR) | payer MEDICARE, OTHER, SELFPAY ==
[2020-12-04 19:41] VITALS: BMI 31.3
[2021-01-14 10:54] LABS: International Normalized Ratio 4.1; Prothrombin Time (Protime)PT. 38.9 SECONDS (11.7-14.9)
[2021-01-22 09:36] LABS: International Normalized Ratio 2.8; Prothrombin Time (Protime)PT. 28.4 SECONDS (11.7-14.9)
[2021-01-29 10:58] LABS: International Normalized Ratio 2.5
== END 2021-02-03 03:20 | disposition home or self-care (01) ==
LOC: LAB 10:14
PROVIDERS: PCP Family Medicine Geriatric Medicine; Referring Provider Internal Medicine Cardiovascular Disease; Visit Provider Internal Medicine Cardiovascular Disease
DX: I48.11 Longstanding persistent atrial fibrillation (principal); Z79.01 Long term (current) use of anticoagulants
CPT/HCPCS: 36415; 85610

== ENCOUNTER 2021-02-19 09:49 | Outpatient (RCR) | payer MEDICARE, OTHER, SELFPAY ==
[2021-02-03 03:21] VITALS: BMI 31.3
[2021-02-19 11:23] LABS: International Normalized Ratio 2.2; Prothrombin Time (Protime)PT. 23.4 SECONDS (11.7-14.9)
== END 2021-03-05 18:00 | disposition home or self-care (01) ==
LOC: LAB 09:49
PROVIDERS: PCP Family Medicine Geriatric Medicine; Referring Provider Internal Medicine Cardiovascular Disease; Visit Provider Internal Medicine Cardiovascular Disease
DX: I48.91 Unspecified atrial fibrillation (principal); Z79.01 Long term (current) use of anticoagulants
CPT/HCPCS: 36415; 85610

== ENCOUNTER → 2021-03-18 07:50 | Outpatient (CLI) | payer MEDICARE, OTHER, SELFPAY ==
--- NOTE | 2021-03-18 07:52 | ECHOD_ITS ---
Reason For Study: SYNCOPE Procedure This was a 2D Doppler, Color Flow transthoracic echocardiogram. Exam performed in department. Left Ventricle Normal LV size. Left ventricular systolic function is normal. The estimated ejection fraction is 55 %. Unable to assess diastolic dysfunction. No regional wall motion abnormalities noted. Right Ventricle Mildly dilated right ventricle. Normal systolic function. Atria The left atrium is severely enlarged. The right atrium is severely enlarged. No doppler evidence for ASD. Mitral Valve There is no mitral annular calcification. Mild diffuse mitral valve thickening. Moderate (2+) mitral valve insufficiency. Tricuspid Valve Normal tricuspid valve. Moderate (2+) tricuspid valve insufficiency. Right ventricular systolic pressure estimated to be 55 mmHg. Aortic Valve Trisinus/trileaflet aortic valve. Mild diffuse aortic valve thickening. Mild focal aortic valve calcification. Mild aortic stenosis. Trivial aortic valve insufficiency. Pulmonic Valve The pulmonic valve is not well visualized. Great Vessels Normal sized aortic root. Pericardium/Pleural No pericardial effusion. MMode/2D Measurements & Calculations LVIDd: 4.7 cm IVSd: 1.2 cm LVOT diam: 1.9 cm LVIDs: 3.2 cm LVPWd: 1.1 cm LVOT area: 2.7 cm2 RVDd: 4.0 cm FS: 31.6 % Ao root diam: 3.4 cm LAV(MOD-bp): 94.0 ml LVAd ap4: 21.0 cm2 LAV(MOD-bp) Indexed: 57.6 ml/m2 LVLd ap4: 6.4 cm LAV(MOD-sp2): 92.3 ml EDV(MOD-sp4): 59.8 ml LAV(MOD-sp4): 91.1 ml EDV(sp4-el): 58.9 ml LVAs ap4: 12.7 cm2 LVLs ap4: 5.3 cm ESV(MOD-sp4): 25.9 ml ESV(sp4-el): 26.0 ml EF(MOD-sp4): 56.6 % EF(sp4-el): 56.0 % LVAd ap2: 22.8 cm2 SV(MOD-sp4): 33.9 ml SV(MOD-sp2): 33.6 ml LVLd ap2: 7.2 cm EDV(MOD-sp2): 62.5 ml EDV(sp2-el): 61.3 ml LVAs ap2: 13.6 cm2 LVLs ap2: 5.7 cm ESV(MOD-sp2): 28.8 ml ESV(sp2-el): 27.7 ml EF(MOD-sp2): 53.8 % SV(sp4-el): 33.0 ml Aortic Valve Planimetry: 1.5 cm2 LA A4 area: 27.7 cm2 LA dimension(2D): 5.1 cm RA A4 area: 17.3 cm2 Doppler Measurements & Calculations MV E max olesya: 141.4 cm/sec Ao V2 max: 169.3 cm/sec LV V1 max: 75.6 cm/sec Ao max P.6 mmHg LV V1 max P.3 mmHg Ao V2 mean: 120.3 cm/sec LV V1 mean P.2 mmHg Ao mean P.4 mmHg LV V1 mean: 52.9 cm/sec Ao V2 VTI: 30.3 cm LV V1 VTI: 13.7 cm KRISTA(I,D): 1.2 cm2 KRISTA(V,D): 1.2 cm2 SV(LVOT): 37.2 ml PA V2 max: 103.4 cm/sec TR max olesya: 340.9 cm/sec TR max P.5 mmHg ECHO/Echo Complete Interpretation Summary Left ventricular systolic function is normal. The estimated ejection fraction is 55 %. Mildly dilated right ventricle. The left atrium is severely enlarged. The right atrium is severely enlarged. Mild diffuse mitral valve thickening. Moderate (2+) mitral valve insufficiency. Moderate (2+) tricuspid valve insufficiency. Mild aortic stenosis. Trivial aortic valve insufficiency. Right ventricular systolic pressure estimated to be 55 mmHg. Unable to assess diastolic dysfunction. Ordering Physician: Claribel Kuo Referring Physician: PATRIA LOWE Performed By: Mirtha Graff, DAVID, RVT
== END ==
PROVIDERS: PCP Family Medicine Geriatric Medicine; Referring Provider Physician Assistant Medical; Visit Provider Physician Assistant Medical
DX: R55 Syncope and collapse (principal); I34.0 Nonrheumatic mitral (valve) insufficiency
CPT/HCPCS: 93306

== ENCOUNTER 2021-05-13 08:12 | Emergency (ER) | payer MEDICARE, OTHER, SELFPAY ==
[2021-05-13] VITALS (8 sets, daily range): BP systolic 107–211; BP diastolic 70–183; PULSE 64–130; RESP 16–20; TEMP 36.2; O2SAT 96–99; BMI 30.2
--- NOTE | 2021-05-13 08:35 | CT_ITS ---
STUDY: CT BRAIN WITHOUT CONTRAST REASON FOR EXAM: Female, 75 years old. 4 day history of nausea and vomiting. Headaches. History of colon carcinoma. RADIATION DOSAGE (If Supplied By Facility): CTDIvol = ( 44.99 ) mGy, DLP = ( 745.49 ) mGycm TECHNIQUE: Transaxial CT imaging of the brain was performed without administration of intravenous contrast material. Individualized dose optimization techniques were used for this CT. COMPARISON: Comparison is made with prior examination dated 03/18/2017. FINDINGS: Normal soft tissue structures. Normal calvarium. There is mild cerebral atrophy with widening of the extra-axial spaces and ventricular dilatation. There is a 1.5 cm x 1.2 cm hemorrhagic nodule in the peripheral lateral aspect of the left cerebellar hemisphere. There is a 2.1 cm x 1.4 cm hemorrhagic nodule in the left frontal lobe with surrounding edema and mass effect. This extends into the region of the right basal ganglion. A small amount of acute bleed is seen within the third ventricle. There are small punctate calcifications of the basal ganglia which are seen in the aging brain as a normal variant. Normal brainstem. Atherosclerotic calcification of the vertebral arteries and cavernous portions of the internal carotid arteries bilaterally. Normal visualized paranasal sinuses. CT/Brain/Head without Contrast IMPRESSION: Findings suggestive of hemorrhagic metastatic deposits in the lateral aspect of the left cerebellar hemisphere as well as the left frontal lobe with extension to the left basal ganglion. Surrounding edema and mass effect. Small amount of acute bleed is seen within the roof of the third ventricle. N.B. : The above Results were Read Back by Nik Guzman MD to Donna Enrique and understanding confirmed on 05/13/2021 10:25:35 (ET). Electronically Signed: Nik Guzman MD at 10:26 EST ,
--- NOTE | 2021-05-13 08:40 | EKG12_ITS ---
Test Reason : MATHUR Blood Pressure : / mmHG Vent. Rate : 127 BPM Atrial Rate : 141 BPM P-R Int : 000 ms QRS Dur : 094 ms QT Int : 340 ms P-R-T Axes : 000 071 -28 degrees QTc Int : 494 ms Atrial fibrillation Nonspecific ST and T wave abnormality Abnormal ECG Confirmed by ONEIL JULES, LORA ([id number]), field map editor LLOYD MENDES ([id number]) on 05/14/2021 11:41:43 AM Referred By: DE Confirmed By:LORA RIGGS MD
--- NOTE | 2021-05-13 08:40 | EX.ED.VIS.HA ---
HPI History of Present Illness Chief Complaint: Headache Informant: patient Onset/Context/Timing Onset: Days Narrative Narrative: Patient is a 75-year-old female with history of hypertension, atrial fibrillation on Coumadin, GERD, and migraine headaches presenting with headache, nausea and vomiting. Patient states she is had what feels like a sinus headache for the past 5 days. She states she has been able to get rid of it. She has been taking [id number] sinus medicine which she says is something along the lines of Zyrtec or Claritin as well as Tylenol with no relief. She states she has been having associated nausea and she vomits anytime she tries to eat anything including toast. She is been able take her medications up until this morning. She states the pain is from her eyes up and is behind her eyes, the bridge of her nose and her forehead. She states this is different feeling than it had migrated she is had the past. Patient denies any associated chest pain, shortness of breath or difficulty breathing. She denies any falls or head trauma. She states her last INR was 2.1. No other complaints at this time. She states she has been having normal bowel movements. [facility] Medical History (Updated 05/13/21 @ 10:[address] 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 Longstanding persistent atrial fibrillation Mixed hyperlipidemia Moderate to severe pulmonary hypertension Non-rheumatic mitral regurgitation Non-rheumatic tricuspid valve insufficiency Normal echocardiogram (~06/08/20) Normal stress echocardiogram (~06/03/17) Paroxysmal atrial fibrillation Rt flank pain Secondary pulmonary hypertension Severe mitral regurgitation Shortness of breath on exertion Syncope and collapse Vertigo Wears dentures Home Medications alendronate 70 mg tablet 70 mg PO QWEEK 06/02/19 [History Last Taken Unknown] potassium chloride 20 mEq tablet,extended release 20 meq PO DAILY #90 tab 01/13/20 [Rx Last Taken Unknown] ergocalciferol (vitamin D2) 1,000 unit tablet 1 tab PO DAILY tab 05/28/20 [History Last Taken Unknown] Sennosides [Senna] 8.6 mg PO QHS 10/29/20 [History Last Taken Unknown] omeprazole 40 mg PO DAILY 10/29/20 [History Last Taken Unknown] acetaminophen 1,000 mg PO Q6 PRN #1 tab 11/01/20 [Rx Last Taken Unknown] pravastatin 40 mg tablet 40 mg PO QHS #90 tab 11/19/20 [Rx Last Taken Unknown] furosemide 40 mg tablet 40 mg PO DAILY tab 11/20/20 [History Last Taken Unknown] hydralazine 10 mg tablet 10 mg PO ONCE tab 11/20/20 [History Last Taken Unknown] ferrous sulfate 325 mg (65 mg iron) tablet 325 mg PO BID 01/17/21 [History Last Taken Unknown] isosorbide mononitrate 30 mg tablet,extended release 24 hr See Rx Instructions .ROUTE .COMPLEX #180 tab 02/18/21 [Rx Last Taken Unknown] lisinopril 40 mg tablet See Rx Instructions .ROUTE .COMPLEX #90 tablet 02/18/21 [Rx Last Taken Unknown] metoprolol tartrate 100 mg tablet 100 mg PO BID #180 tab 03/25/21 [Rx Last Taken Unknown] warfarin 5 mg tablet See Rx Instructions .ROUTE .COMPLEX #90 tablet 04/25/21 [Rx Last Taken Unknown] Allergy/AdvReac Type Severity Reaction Status Date / Time piroxicam Allergy Unknown Verified 05/13/21 08:15 adhesive tape AdvReac Rash Verified 05/13/21 08:15 Family History Mother 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 Father , from [place] at age 69 CAD (coronary artery disease) Myocardial infarction, Onset Age: 69 Brother 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 Heart disease Myocardial infarction Pacemaker Surgical History H/O: hysterectomy History of carpal tunnel release History of colectomy (~10/2020) History of knee replacement, total History of left heart catheterization (06/12/17) History of right and left heart catheterization (11/16/19) History of tonsillectomy History of transesophageal echocardiography (HANNY) (11/16/19) Hx of cataract extraction Hx of colonoscopy Right TKA Social History Smoking Status: Never smoker alcohol intake: current alcohol intake frequency: holidays/special occasions only substance use type: does not use caffeine: Yes Type: carbonated beverages Number of servings: 1 what type of physical activity do you participate in: none ROS ROS ED Constitutional Constitutional ED: Denies chills or fever(s) Eyes Eyes: Reports other Details: No photophobia ; Denies blurry vision or change in vision ENT ENT ED: Reports ear pain bilateral; Denies rhinorrhea or sore throat Cardiovascular Cardiovascular: Denies chest pain Respiratory/Chest Respiratory/Chest: Denies cough or dyspnea Gastrointestinal Gastrointestinal: Reports nausea and vomiting; Denies abdominal pain, constipation or diarrhea Genitourinary Genitourinary ED: Denies dysuria Musculoskeletal Musculoskeletal: Denies arthralgias, myalgias or neck pain Integumentary Denies rash Neurologic Neurologic: Reports headache(s); Denies paresthesias or weakness EXAM Physical Exam Const Vital Signs: 05/13/21 08:13 Temperature 97.1 F L Temperature Source Temporal Pulse Rate 64 Respiratory Rate 16 Blood Pressure 211/183 H Blood Pressure Mean 192 Pulse Ox 96 Oxygen Delivery Method Room Air Positive well nourished and well developed General Appearance ED: well developed HEENT Reports normocephalic, TM's clear and dry mucous membranes atraumatic and temporal artery tenderness bilateral (mild) Face and Sinus: Negative for sinus tenderness Tympanic Membrane ED: Yes TM's clear Mouth ED: Yes dry mucous membranes Mouth: dry mucous membranes Eyes PERRL and EOMs intact bilaterally Neck supple, no meningeal signs and no JVD Resp normal respiratory effort and clear to auscultation bilaterally Cardio regular rate and no murmurs Rhythm: abnormal rhythm irregularly irregular GI non-tender and non-distended Auscultation: normoactive bowel sounds Palpation: soft Extremity normal to inspection and full ROM Neuro oriented x3, CN's II-XII intact bilaterally and no sensory deficits noted Sensorium / Orientation: awake and alert Motor Exam: strength 5/5 throughout Skin Lesions: no lesions Rashes: no rashes MDM MDM MDM Narrative Medical decision making narrative: Patient evaluated for 5 days of headache and now nausea and vomiting. She has normal neurologic exam. Triage vital signs significant for hypertension and her EKG shows tachycardia. Patient did not take her morning metoprolol and low appears to be in atrial fibrillation with RVR. She is on have a supratherapeutic INR of 13.6. Hemoglobin is normal at 13.1 and x-ray improved from her baseline. Initial I did add on a CRP as well because of the temporal pain. CT of the brain does show hemorrhagic metastatic deposit of the lateral aspect of the left cerebral hemisphere as well as left frontal lobe with extension to the left basal ganglia on. Patient continues to have a stable neurologic exam. She is ordered PCC because of her head bleed in conjunction with a supratherapeutic INR. Patient be transferred to [facility] and accepted by ER physician Dr. Lockwood. Neurosurgery on-call is aware and agreeable with transport as well, Dr. Odin Rothman. Patient will be flown by [facility] due to the potential for catastrophic complications from her bleed and need for timely transportation. Will try to get blood patient's blood pressure below 140 systolic. Lab Data Attestation: I reviewed the patient's lab results. Labs: Laboratory Results - last 24 hr 05/13/21 05/13/21 05/13/21 09:40 09:40 09:40 WBC 6.1 RBC 4.15 L Hgb 13.1 Hct 39.0 MCV 94.0 MCH 31.6 MCHC 33.6 RDW Std Deviation 48.6 H RDW Coeff of Oralia 14.1 Plt Count 250 MPV 9.1 Immature Gran % (Auto) 0.200 Neut % (Auto) 75.3 H Lymph % (Auto) 14.6 L [place] % (Auto) 8.6 Eos % (Auto) 1.0 Baso % (Auto) 0.3 Absolute Neuts (auto) 4.6 Absolute Lymphs (auto) 0.89 Nucleated RBC % 0 PT 101.9 H INR 13.6 H* Sodium 141 Potassium 3.5 Chloride 105 Carbon Dioxide 30.0 Anion Gap 6 BUN 25 H Creatinine 1.24 H Estim Creat Clear Calc 39.30 Est GFR (MDRD) Af Amer 54 L Est GFR (MDRD) Non-Af 45 L BUN/Creatinine Ratio 20.2 H Glucose 122 H Calcium 9.3 Total Bilirubin 1.10 H AST 35 ALT 18 Alkaline Phosphatase 97 Troponin I High Sens 29 C-React Prot Ext Range < 2.90 Total Protein 7.9 Albumin 4.3 Globulin 3.6 Albumin/Globulin Ratio 1.2 Radiography Diagnostic Testing: Clinical Impression(s) from Imaging Studies Brain CT 05/13/21 08:35 IMPRESSION: Findings suggestive of hemorrhagic metastatic deposits in the lateral aspect of the left cerebellar hemisphere as well as the left frontal lobe with extension to the left basal ganglion. Surrounding edema and mass effect. Small amount of acute bleed is seen within the roof of the third ventricle. N.B. : The above Results were Read Back by Nik Guzman MD to Donna Enrique and understanding confirmed on 05/13/2021 10:25:35 (ET). Electronically Signed: Nik Guzman MD at 10:26 EST , ADDENDUM: 05/13/21 1033 IMPRESSION: Findings suggestive of hemorrhagic metastatic deposits in the lateral aspect of the left cerebellar hemisphere as well as the left frontal lobe with extension to the left basal ganglion. Surrounding edema and mass effect. Small amount of acute bleed is seen within the roof of the third ventricle. N.B. : The above Results were Read Back by Nik Guzman MD to Donna Enrique and understanding confirmed on 05/13/2021 10:25:35 (ET). Electronically Signed: Nik Guzman MD at 10:26 EST , Rhythm Strip Rhythm Strip: A-fib Rate: 127 Ectopy: None EKG Initial EKG: Attestation: I personally reviewed and interpreted this EKG as follows: Interpretation: Atrial Fibrillation Comments: Atrial fibrillation with rapid ventricular response at a rate of 127 Normal axis Normal QRS and QTc Nonspecific ST and T wave abnormalities Critical Care Time Critical Care Time: Yes Critical care time (excluding procedures): 30-74 minutes (40), Discussing w/Patient &/or Family/Platform Material Handling Supervisor, Discussing w/Consultants and Arranging Admission or Transfer Discharge Plan Triage Chief Complaint: Headache ED Provider: Donna Enrique Dx/Rx/DC Orders Clinical Impression: Hemorrhagic stroke, Atrial fibrillation with RVR, Metastasis to brain, Supratherapeutic INR Prescriptions: No Action alendronate 70 mg tablet 70 mg PO QWEEK RF: 0 ergocalciferol (vitamin D2) 1,000 unit tablet 1,000 unit tablet 1 tab PO DAILY RF: 0 furosemide 40 mg tablet 40 mg PO DAILY RF: 0 hydralazine 10 mg tablet 10 mg PO ONCE RF: 0 ferrous sulfate [Iron (ferrous sulfate)] 325 mg (65 mg iron) tablet 325 mg PO BID RF: 0 omeprazole 40 mg capsule,delayed release(DR/EC) 40 mg PO DAILY RF: 0 Sennosides [Senna] 8.6 MG tablet 8.6 mg PO QHS RF: 0 acetaminophen 500 mg Tablet 1,000 mg PO Q6 PRN (Reason: pain) Qty: 1 RF: 0 potassium chloride 20 mEq tablet extended release 20 meq PO DAILY Qty: 90 RF: 3 pravastatin 40 mg tablet 40 mg PO QHS Qty: 90 RF: 3 Hold Instructions: Leg weakness isosorbide mononitrate 30 mg tablet extended release 24 hr See Rx Instructions .ROUTE .COMPLEX Qty: 180 RF: 3 lisinopril 40 mg tablet See Rx Instructions .ROUTE .COMPLEX Qty: 90 RF: 3 metoprolol tartrate 100 mg tablet 100 mg PO BID Qty: 180 RF: 3 warfarin 5 mg tablet See Rx Instructions .ROUTE .COMPLEX Qty: 90 RF: 3 Primary Care Provider: Cassius Monaco Chi Referrals: Cassius Monaco Chi, MD [Primary Care Provider] - Disposition Disposition: Acute Care Hospital Discharge Location: [facility]
[2021-05-13 09:49] LABS: Absolute Lymphocyte Count 0.89 X10^3/uL (0.83-4.51); Absolute Neutrophil Count 4.6 X10^3/uL (2.0-7.7); Basophil# 0.02 X10^3/uL; Basophil% 0.3 % (0-1); Eosinophil# 0.06 X10^3/uL; Hemoglobin 13.1 g/dL (12.0-15.0); Lymphocyte # 0.89 X10^3/ul (0.83-4.51); Lymphocyte % 14.6 % (19-41); Mean Corp Hgb Conc 33.6 g/dL (32-36); Mean Corpuscular Hgb 31.6 pg (27.0-32.0); Mean Platelet Vol. 9.1 fl (6.2-12.0); Monocyte# 0.52 X10^3/uL; Monocyte% 8.6 % (0-10); NRBC Flagged by Analyzer 0 % (0-5); Neutrophil # 4.58 X10^3/uL (2.7-7.7); Neutrophil % 75.3 % (47-70); Platelet Count 250 K/mm3 (150-450); RBC Distribution Width CV 14.1 % (11.6-14.6); RBC Distribution Width SD 48.6 fl (35.1-43.9); Red Blood Count 4.15 M/mm3 (4.2-5.4); White Blood Count 6.1 K/mm3 (4.4-11.0)
[2021-05-13 10:06] LABS: Prothrombin Time (Protime)PT. 101.9 SECONDS (11.7-14.9)
[2021-05-13 10:09] LABS: ALB/GLOB Ratio 1.2 RATIO (0.9-2.4); AST(SGOT) 35 U/L (15-37); Alanine Aminotransfer ALT/SGPT 18 U/L (13-56); Albumin, Serum 4.3 g/dL (3.2-5.0); Alkaline Phosphatase 97 U/L (45-117); Anion Gap 6 (5-15); BUN 25 mg/dL (7-18); BUN/Creat Ratio 20.2 RATIO (10-20); CRP < 2.90 mg/L (0.0-3.0); Calcium,Total 9.3 mg/dL (8.5-10.1); Chloride 105 mmol/L (98-107); Creatinine, Serum 1.24 mg/dL (0.55-1.02); EST Glomerular Filtration Rate 45 mL/min (>60); Est Glom Filt Rate - Afr Amer 54 mL/min (>60); Globulin 3.6 g/dL (2.2-4.2); Glucose 122 mg/dL (74-106); Potassium 3.5 mmol/L (3.5-5.1); Protein, Total 7.9 g/dL (6.4-8.2); Sodium Level 141 mmol/L (136-145); Troponin-I HS 29 pg/mL (3.0-54.0)
[2021-05-13 10:12] LABS: International Normalized Ratio 13.6
[2021-05-13] MEDS: Ondansetron 4 MG/2 ML Vial IV (10:24)
[2021-05-13] MEDS: Metoprolol Tartrate 5 MG/5 ML Vial IV (10:34)
[2021-05-13] MEDS: Labetalol (Prefilled) 20 MG/4 ML IV (10:55)
[2021-05-13] MEDS: Nicardipine HCl-0.9% Sod Chlor 20 MG/200 ML IV.SOLN 100 MG IV (11:02)
--- NOTE | 2021-05-13 11:24 | ED.RN ---
Kcentra, Vitamin K & Cardene GTT sent with Dajie along w/pt's belongings. BP 138/84 upon discharge. NIHSS remained 0, pt c/o dull headache which she reports having for 5 days now. Nausea improved w/Zofran
== END 2021-05-13 11:26 | disposition short-term general hospital (02) ==
PROVIDERS: Emergency Provider Emergency Medicine; PCP Family Medicine Geriatric Medicine; Visit Provider Emergency Medicine
DX: I63.9 Cerebral infarction, unspecified (principal); C79.31 Secondary malignant neoplasm of brain; I48.91 Unspecified atrial fibrillation; G43.909 Migraine, unspecified, not intractable, without status migrainosus; R79.1 Abnormal coagulation profile; E78.2 Mixed hyperlipidemia; I25.10 Atherosclerotic heart disease of native coronary artery without angina pectoris; I10 Essential (primary) hypertension
CPT/HCPCS: 70450; 80053; 84484; 85025; 85610; 86140; 87426; 93005; 99285; J7168; A4216; J2405; J3490

== ENCOUNTER 2021-05-22 10:14 | Outpatient (CLI) | payer MEDICARE, OTHER, SELFPAY ==
[2021-05-22 12:16] LABS: Absolute Neutrophil Count 4.1 X10^3/uL (2.0-7.7); Basophil# 0.01 X10^3/uL; Basophil% 0.2 % (0-1); Eosinophil# 0.09 X10^3/uL; Eosinophils% 1.6 % (0-5); Hemoglobin 12.8 g/dL (12.0-15.0); Lymphocyte % 17.4 % (19-41); Mean Corp Hgb Conc 34.6 g/dL (32-36); Mean Corpuscular Hgb 31.4 pg (27.0-32.0); Mean Corpuscular Volume 90.7 fL (81-99); Mean Platelet Vol. 9.4 fl (6.2-12.0); Monocyte# 0.57 X10^3/uL; Monocyte% 9.9 % (0-10); NRBC Flagged by Analyzer 0 % (0-5); Neutrophil # 4.05 X10^3/uL (2.7-7.7); Neutrophil % 70.4 % (47-70); Platelet Count 299 K/mm3 (150-450); RBC Distribution Width SD 46.4 fl (35.1-43.9); Red Blood Count 4.08 M/mm3 (4.2-5.4); White Blood Count 5.8 K/mm3 (4.4-11.0)
[2021-05-22 12:25] LABS: Vitamin D,25 Hydroxy 36.6 ng/mL
[2021-05-22 12:39] LABS: ALB/GLOB Ratio 1.2 RATIO (0.9-2.4); AST(SGOT) 51 U/L (15-37); Alanine Aminotransfer ALT/SGPT 30 U/L (13-56); Albumin, Serum 3.8 g/dL (3.2-5.0); Alkaline Phosphatase 95 U/L (45-117); Anion Gap 8 (5-15); BUN 15 mg/dL (7-18); BUN/Creat Ratio 11.2 RATIO (10-20); Calcium,Total 9.1 mg/dL (8.5-10.1); Chloride 96 mmol/L (98-107); Creatinine, Serum 1.34 mg/dL (0.55-1.02); EST Glomerular Filtration Rate 41 mL/min (>60); Est Glom Filt Rate - Afr Amer 50 mL/min (>60); Globulin 3.3 g/dL (2.2-4.2); Glucose 120 mg/dL (74-106); Potassium 3.6 mmol/L (3.5-5.1); Protein, Total 7.1 g/dL (6.4-8.2); Sodium Level 131 mmol/L (136-145); Thyroid Stim Hormone (TSH) 2.62 uIU/mL (0.358-3.74)
== END 2021-05-22 23:59 | disposition home or self-care (01) ==
LOC: POLAB3 10:15
PROVIDERS: PCP Family Medicine Geriatric Medicine; Visit Provider Family Medicine Geriatric Medicine
DX: I10 Essential (primary) hypertension (principal); E55.9 Vitamin D deficiency, unspecified
CPT/HCPCS: 36415; 80053; 82306; 84443; 85025

== ENCOUNTER 2021-06-03 10:22 | Outpatient (RCR) | payer MEDICARE, OTHER, SELFPAY ==
[2021-03-06 01:58] VITALS: BMI 31.3
[2021-06-03 11:35] LABS: Prothrombin Time (Protime)PT. 12.6 SECONDS (11.7-14.9)
== END 2021-06-03 18:00 | disposition home or self-care (01) ==
LOC: LAB 10:22
PROVIDERS: PCP Family Medicine Geriatric Medicine; Referring Provider Internal Medicine Cardiovascular Disease; Visit Provider Internal Medicine Cardiovascular Disease
DX: I48.11 Longstanding persistent atrial fibrillation (principal); Z79.01 Long term (current) use of anticoagulants
CPT/HCPCS: 36415; 85610

== ENCOUNTER 2021-06-17 08:06 | Outpatient (CLI) | payer MEDICARE, OTHER, SELFPAY ==
--- NOTE | 2021-06-17 08:15 | MRI_ITS ---
STUDY: MRI BRAIN WITH AND WITHOUT CONTRAST REASON FOR EXAM: Female, 75 years old. SWELLING, MASS, LUMP HEAD TECHNIQUE: Standardized multiplanar fat and water weighted pulse sequences were obtained. IV 13ML DOTAREM was administered for the contrast portion of the examination. COMPARISON: Head CT dated May 13, 2021 FINDINGS: 1. Reidentification of a hemorrhagic mass of the medial/parasagittal region of the left frontal lobe abutting the corpus callosum and anterior horn of the left lateral ventricle, demonstrating peripheral enhancement, and measuring 1.37 x 1.24 x 1.09 cm. Interval resolution of previously seen surrounding vasogenic edema and the lesion is smaller in size when compared to the prior measurement of 2.1 x 1.4 cm. 2. Previously seen small amount of hemorrhage from the tumor and the frontal horn of the left lateral ventricle and the third ventricle has resolved in the interim. 3. Previously seen mild rightward midline shift has also resolved. 4. Metastatic lesion at the anterior peripheral aspect of the left cerebellar lobe has also decreased in size currently measuring 0.97 x 0.68 cm with diffuse peripheral enhancement, but decreased from the prior measurement of 1.5 x 1.2 cm. Minimal peritumoral edema is present. 5. No new lesions are present in the supratentorial regions of the brain or posterior fossa. 6. No visualized skull lesions or abnormal enhancement There is mild cerebral atrophy with widening of the extra-axial spaces and ventricular dilatation. There are a limited number of small white matter hyperintensities, distributed throughout the deep white matter tracts of the cerebral hemispheres, consistent with mild chronic white matter ischemic changes. There is no evidence for recent intracranial ischemia or other cause of cytotoxic edema on diffusion weighted imaging (DWI). Normal bilateral basal ganglia. Normal thalami. There is no extra-axial fluid accumulation. Normal flow voids within the major intracranial circulation suggesting patency by spin echo criteria. Normal venous enhancement. Normal sella turcica, pituitary gland, infundibular stalk, optic chiasm and hypothalamus. Normal tectal plate and pineal gland. Normal midbrain, prateek and medulla. Normal cerebellum. Normal basal cisterns. Normal bilateral temporal bones. Normal bilateral internal auditory canals. No demonstrated orbital abnormality, within the constraints of a routine brain study. Normal visualized paranasal sinuses. Normal calvarium and skull base. Normal visualized soft tissue structures. Normal visualized upper cervical spine. Pneumatization of the petrous apex on the left with sinus opacification. MRI/Brain W/WO Contrast IMPRESSION: 1. Reidentification of a hemorrhagic mass of the medial/parasagittal region of the left frontal lobe abutting the corpus callosum and anterior horn of the left lateral ventricle, demonstrating peripheral enhancement, and measuring 1.37 x 1.24 x 1.09 cm. Interval resolution of previously seen surrounding vasogenic edema and the lesion is smaller in size when compared to the prior measurement of 2.1 x 1.4 cm. 2. Previously seen small amount of hemorrhage from the tumor and the frontal horn of the left lateral ventricle and the third ventricle has resolved in the interim. 3. Previously seen mild rightward midline shift has also resolved. 4. Metastatic lesion at the anterior peripheral aspect of the left cerebellar lobe has also decreased in size currently measuring 0.97 x 0.68 cm with diffuse peripheral enhancement, but decreased from the prior measurement of 1.5 x 1.2 cm. Minimal peritumoral edema is present. 5. No new lesions are present in the supratentorial regions of the brain or posterior fossa. 6. No visualized skull lesions or abnormal enhancement 7. Mild chronic ischemic and involutional changes of the brain, as described above. Electronically Signed: Zeus Richard MD at 11:02 EDT ,
== END 2021-06-17 23:59 | disposition home or self-care (01) ==
LOC: MRI 08:07
PROVIDERS: PCP Family Medicine Geriatric Medicine; Visit Provider Family Medicine Geriatric Medicine
DX: R22.0 Localized swelling, mass and lump, head (principal)
CPT/HCPCS: 70553; A9575

== ENCOUNTER → 2021-09-27 | Outpatient (CLI) | payer MEDICARE, OTHER, SELFPAY ==
[2021-09-27 10:22] LABS: Absolute Lymphocyte Count 0.74 X10^3/uL (0.83-4.51); Absolute Neutrophil Count 3.1 X10^3/uL (2.0-7.7); Basophil# 0.02 X10^3/uL; Basophil% 0.4 % (0-1); Eosinophil# 0.21 X10^3/uL; Eosinophils% 4.7 % (0-5); Hematocrit 32.7 % (37-47); Lymphocyte # 0.74 X10^3/ul (0.83-4.51); Lymphocyte % 16.5 % (19-41); Mean Corp Hgb Conc 33.6 g/dL (32-36); Mean Corpuscular Hgb 31.7 pg (27.0-32.0); Mean Corpuscular Volume 94.2 fL (81-99); Monocyte# 0.44 X10^3/uL; Monocyte% 9.8 % (0-10); NRBC Flagged by Analyzer 0 % (0-5); Neutrophil # 3.06 X10^3/uL (2.7-7.7); Neutrophil % 68.4 % (47-70); Platelet Count 186 K/mm3 (150-450); RBC Distribution Width CV 13.1 % (11.6-14.6); RBC Distribution Width SD 44.4 fl (35.1-43.9); Red Blood Count 3.47 M/mm3 (4.2-5.4); White Blood Count 4.5 K/mm3 (4.4-11.0)
[2021-09-27 10:46] LABS: Vitamin D,25 Hydroxy 23.8 ng/mL
[2021-09-27 10:53] LABS: ALB/GLOB Ratio 1.3 RATIO (0.9-2.4); AST(SGOT) 27 U/L (15-37); Alanine Aminotransfer ALT/SGPT 20 U/L (13-56); Albumin, Serum 3.9 g/dL (3.2-5.0); Alkaline Phosphatase 91 U/L (45-117); Anion Gap 8 (5-15); BUN 14 mg/dL (7-18); Calcium,Total 8.6 mg/dL (8.5-10.1); Chloride 102 mmol/L (98-107); Creatinine, Serum 0.93 mg/dL (0.55-1.02); EST Glomerular Filtration Rate 62 mL/min (>60); Est Glom Filt Rate - Afr Amer 75 mL/min (>60); Globulin 3.1 g/dL (2.2-4.2); Glucose 89 mg/dL (74-106); Potassium 3.2 mmol/L (3.5-5.1); Sodium Level 137 mmol/L (136-145); Thyroid Stim Hormone (TSH) 1.37 uIU/mL (0.358-3.74)
== END | disposition home or self-care (01) ==
LOC: POLAB3 09:11
PROVIDERS: PCP Family Medicine Geriatric Medicine; Visit Provider Family Medicine Geriatric Medicine
DX: I10 Essential (primary) hypertension (principal); E11.65 Type 2 diabetes mellitus with hyperglycemia; E55.9 Vitamin D deficiency, unspecified
CPT/HCPCS: 36415; 80053; 82306; 84443; 85025

== ENCOUNTER → 2021-10-04 | Outpatient (CLI) | payer MEDICARE, OTHER, SELFPAY | END | disposition home or self-care (01) | LOC: LAB 12:33 → LABSPEC 12:36 | PROVIDERS: PCP Family Medicine Geriatric Medicine; Visit Provider Internal Medicine Medical Oncology | DX: D64.9 Anemia, unspecified (principal) | CPT/HCPCS: 82274 ==

== ENCOUNTER → 2021-10-24 | Outpatient (CLI) | payer MEDICARE, OTHER, SELFPAY ==
--- NOTE | 2021-10-24 07:45 | US_ITS ---
STUDY: ABDOMINAL ULTRASOUND - RIGHT UPPER QUADRANT REASON FOR VISIT: Female, 75 years old RUQ pain TECHNIQUE: Ultrasound evaluation of the right upper quadrant was performed with real-time and static short-scale imaging. TECHNICAL QUALITY: Adequate. COMPARISON: None. FINDINGS: Liver: The liver measures 15.4 cm. There is normal echogenicity of the liver. The bile ducts are within normal limits. There is hepatic color flow. The direction of portal flow is hepatopetal. There is no demonstrated mass lesion. Gallbladder: Normal distended gallbladder. The gallbladder wall measures 2.4 mm. There is a negative sonographic Wagner''s sign. There is no pericholecystic fluid. There are no gallstones. Common Bile Duct (C.B.D.): The common bile duct measures 3.0 mm. Pancreas: Normal size of the head, body and tail of the pancreas. There is increased echogenicity of the pancreas. There is no demonstrated pancreatic mass or cyst. Right Kidney: Normal size of the right kidney. The right kidney measures 8.2 cm x 3.4 cm x 3.1 cm. Normal renal cortex. The right cortex measures 0.9 cm. There is a 1.3 cm x 1.4 cm x 1.1 cm parapelvic cyst. There is a 1.1 cm x 1 cm x 0.9 cm cyst in the upper pole. There is no right hydronephrosis. US/Gallbladder IMPRESSION: Right renal cysts. Electronically Signed: Nik Guzman MD at 12:29 EDT ,
== END | disposition home or self-care (01) ==
LOC: US 07:44
PROVIDERS: PCP Family Medicine Geriatric Medicine; Referring Provider Surgery; Visit Provider Surgery
DX: R10.11 Right upper quadrant pain (principal)
CPT/HCPCS: 76705

== ENCOUNTER → 2021-11-26 | Outpatient (CLI) | payer MEDICARE, OTHER, SELFPAY ==
--- NOTE | 2021-11-26 10:50 | ECHOD_ITS ---
[id number] ECHO^ECHOD^Echo Complete [id number] Reason For Study: Valvular Heart Disease Procedure This was a 2D Doppler, Color Flow transthoracic echocardiogram. Exam performed in department. Left Ventricle Normal LV size. Left ventricular systolic function is normal. The estimated ejection fraction is 55 %. Diastolic function is indeterminate. No regional wall motion abnormalities noted. Right Ventricle Moderately dilated right ventricle. Moderate global right ventricular systolic dysfunction. Atria The left atrium is severely enlarged. The right atrium is severely enlarged. Positive agitated saline contrast study for right to left interatrial shunt compatible with a small PFO versus ASD. Mitral Valve There is mild mitral annular calcification. Extension of the mitral annular calcification on the base of the posterior mitral valve leaflet. Mild diffuse mitral valve thickening. Moderate (2+) eccentric mitral valve insufficiency. Tricuspid Valve Normal tricuspid valve. Moderate (2+) tricuspid valve insufficiency. Right ventricular systolic pressure estimated to be 37 mmHg. Aortic Valve Trisinus/trileaflet aortic valve. Mild diffuse aortic valve thickening. Mild focal aortic valve calcification. Mild aortic stenosis. Pulmonic Valve The pulmonic valve is not well visualized. Great Vessels Borderline enlarged aortic root. Pericardium/Pleural No pericardial effusion. Medication 20 gauge I.V. with prn adaptor inserted into right arm. Performed a rapid injection of agitated mix of 9 cc saline and 1cc air to assess for atrial septal defect. MMode/2D Measurements & Calculations RVDd: 4.2 cm LVIDd: 4.7 cm FS: 19.6 % IVSd: 0.90 cm LVIDs: 3.8 cm LVPWd: 1.1 cm Ao root diam: 3.9 cm LVOT diam: 2.0 cm LAV(MOD-bp): 77.2 ml ACS: 0.98 cm LVOT area: 3.0 cm2 LAV(MOD-bp) Indexed: 49.9 ml/m2 LA dimension: 5.2 cm LAV(MOD-sp2): 65.5 ml LAV(MOD-sp4): 94.3 ml Aortic Valve Planimetry: 1.0 cm2 LA A4 area: 26.1 cm2 RA A4 area: 24.1 cm2 Time Measurements MV dec time: 0.14 sec Doppler Measurements & Calculations MV E max olesya: 118.6 cm/sec MV V2 max: 117.6 cm/sec MV P1/2t max olesya: 118.6 cm/sec MV A max olesya: 31.0 cm/sec MV max P.5 mmHg MV P1/2t: 82.0 msec MV E/A: 3.8 MV V2 mean: 47.5 cm/sec MV mean P.3 mmHg MV dec slope: 423.5 cm/sec2 MV V2 VTI: 28.9 cm MVA(P1/2t): 2.7 cm2 MVA(VTI): 1.5 cm2 SV(LVOT): 42.7 ml LV V1 max P.3 mmHg MR max olesya: 502.4 cm/sec Ao V2 max: 149.1 cm/sec LV V1 mean P.4 mmHg MR max P.0 mmHg Ao max P.9 mmHg LV V1 max: 76.1 cm/sec MR mean olesya: 385.2 cm/sec Ao V2 mean: 102.5 cm/sec LV V1 mean: 55.0 cm/sec MR mean P.9 mmHg Ao mean P.7 mmHg LV V1 VTI: 14.3 cm MR VTI: 165.7 cm Ao V2 VTI: 27.7 cm KRISTA(I,D): 1.5 cm2 KRISTA(V,D): 1.5 cm2 PA V2 max: 108.8 cm/sec PI end-d olesya: 110.2 cm/sec TR max olesya: 285.6 cm/sec TR max P.8 mmHg PI dec slope: 305.7 cm/sec2 ECHO/Echo Complete Interpretation Summary Left ventricular systolic function is normal. The estimated ejection fraction is 55 %. Moderately dilated right ventricle. Moderate global right ventricular systolic dysfunction. The left atrium is severely enlarged. The right atrium is severely enlarged. There is mild mitral annular calcification. Extension of the mitral annular calcification on the base of the posterior mitr al valve leaflet. Mild diffuse mitral valve thickening. Moderate (2+) eccentric mitral valve insufficiency. Moderate (2+) tricuspid valve insufficiency. Mild aortic stenosis. Borderline enlarged aortic root. Right ventricular systolic pressure estimated to be 37 mmHg. Diastolic function is indeterminate. Ordering Physician: Carlton Pierce Referring Physician: Carlton Pierce Performed By: Jerardo Norrsi RCS
== END | disposition home or self-care (01) ==
LOC: CVS 10:46
PROVIDERS: PCP Family Medicine Geriatric Medicine; Referring Provider Internal Medicine Cardiovascular Disease; Visit Provider Internal Medicine Cardiovascular Disease
DX: R55 Syncope and collapse (principal); I48.91 Unspecified atrial fibrillation; I35.0 Nonrheumatic aortic (valve) stenosis; I25.10 Atherosclerotic heart disease of native coronary artery without angina pectoris; I36.1 Nonrheumatic tricuspid (valve) insufficiency; I34.0 Nonrheumatic mitral (valve) insufficiency; E78.2 Mixed hyperlipidemia
CPT/HCPCS: 93306; A4216

== ENCOUNTER 2021-11-29 05:40 | Day surgery (SDC) | payer MEDICARE, OTHER, SELFPAY ==
[2021-11-29] MEDS: Lactated Ringers 1,000 ML 15 ML IV (05:55)
[2021-11-29 06:09] VITALS: BP 141/84; PULSE 99; RESP 18; TEMP 36.8; O2SAT 97; BMI 33.3
--- NOTE | 2021-11-29 07:00 | HP.PCM_ITS ---
History and Physical Date of Admission: 11/29/21 Intake Vital Signs ? 10/21/2208:06 Height 4 ft 9 in Weight: 135 lb BMI 29.2 BP 122/72 H Blood Pressure LocationB Rt brachial Position Sitting Respiration 18 Pulse 89 Pulse Source Monitor Temp 97.3 F L Temp Source Temporal Pulse Oximetry (%) 98 Oxygen Delivery Method room air Intake Visit Reasons:?COLONOSCOPY Chief Complaint: Colonoscopy Overseamer Required: No Is patient in pain?: No Allergies piroxicam Allergy (Verified 10/21/21 09:08) Unknownadhesive tape Adverse Reaction (Verified 10/21/21 09:08) Rash Medications alendronate 70 mg tablet 70 mg PO QWEEK bone health 06/02/19 [History Confirmed 10/21/21] potassium chloride 20 mEq tablet,extended release 20 meq PO DAILY supplement #90 tabs 01/13/20 [Rx Confirmed 10/21/21] ergocalciferol (vitamin D2) 1,000 unit tablet 1 tab PO DAILY Check with primary doctor 05/28/20 [History Confirmed 10/21/21] Sennosides [Senna] 8.6 mg PO QHS Check with primary doctor 10/29/20 [History Confirmed 10/21/21] omeprazole 40 mg capsule,delayed release 40 mg PO DAILY Check with primary doctor 10/29/20 [History Confirmed 10/21/21] acetaminophen 500 mg tablet 1,000 mg PO Q6 PRN pain #1 TAB 11/01/20 [Rx Confirmed 10/21/21] hydralazine 10 mg tablet 10 mg PO ONCE 11/20/20 [History Confirmed 10/21/21] ferrous sulfate 325 mg (65 mg iron) tablet (Iron (ferrous sulfate)) 325 mg PO BID 01/17/21 [History Confirmed 10/21/21] isosorbide mononitrate 30 mg tablet,extended release 24 hr See Rx Instructions .Route .COMPLEX #180 tabs 02/18/21 [Rx Confirmed 10/21/21] lisinopril 40 mg tablet See Rx Instructions .Route .COMPLEX #90 TABLETS 02/18/21 [Rx Confirmed 10/21/21] metoprolol tartrate 100 mg tablet 100 mg PO BID #180 tabs 03/25/21 [Rx Confirmed 10/21/21] warfarin 5 mg tablet See Rx Instructions .Route .COMPLEX #90 TABLETS 04/25/21 [Rx Confirmed 10/21/21] furosemide 40 mg tablet 40 mg PO DAILY #90 tabs 07/22/21 [Rx Confirmed 10/21/21] pravastatin 40 mg tablet 40 mg PO QHS Check with primary doctor #90 tabs 09/30/21 [Rx Confirmed 10/21/21] PFSH Medical History? 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 H/O: hysterectomy History of carpal tunnel release History of colectomy (~10/2020) History of knee replacement, total History of left heart catheterization (06/12/17) History of right and left heart catheterization (11/16/19) History of tonsillectomy History of transesophageal echocardiography (HANNY) (11/16/19) Hx of cataract extraction Hx of colonoscopy Right TKA Family History? Mother 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Father?? ,? from [place] at age 69 CAD (coronary artery disease) Myocardial infarction,? Onset Age: 69Brother 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 Heart disease Myocardial infarction Pacemaker Social History? Smoking Status:? Never smoker alcohol intake:? current alcohol intake frequency: holidays/special occasions only substance use type:? does not use caffeine:? Yes Type: carbonated beverages Number of servings: 1 what type of physical activity do you participate in:? none HPI HPI HPI: MARGARETTE WISE, is a 75 F who presents to the office today for follow-up colonoscopy.? Patient had right hemicolectomy 1 year ago for colon cancer.? Patient was also having right upper quadrant pain for the past month or 2.? She says this happens after eating.? She is already on a PPI but does not take it daily.? She does have a history of gastric ulcers. ROS General General: Yes fatigue and colon cancer; No weight change, appetite, breast cancer or weakness HEENT HEENT: No difficulty swallowing, eye injury, eye surgery, swollen glands or hoarseness Endo Endocrine: No thyroid disease, diabetes mellitus, thyroid cancer, Hair loss, heat intolerance or cold intolerance Skin Skin: No rash or changing moles Breast Breast: No left breast lump, right breast lump, nipple discharge, breast pain, abnormal mammogram, abnormal US or breast enlargement Musc Musculoskeletal: Yes arthritis; No back problems, rheumatoid arthritis, gout or joint pain Cardio Cardiovascular: Yes murmur and atrial fibrillation; No pacemaker, heart disease, high blood pressure, heart attack, heart stent, palpitations, shortness of breat with exertion or chest pain Psych Psychiatric: Yes depression and anxiety; No hearing voices Resp Respiratory: No shortness of breath, No sleep apnea, No cough, No COPD, No asthma, No emphysema and No wheezing Gastro Gastrointestinal: Yes abdominal pain, No nausea or vomiting, Yes diarrhea, No constipation, Yes blood in stool, No acid reflux, No hemorrhoids, Yes ulcers, No gallbladder problem and No black,tarry stools Osvaldo Hematologic: No blood thinners, No blood disorders, No bleeding, No anemia and No blood clots Neuro Neurologic: No system reviewed and no additional complaints, except as documented, No as per HPI, No abnormal gait, No abnormal hearing, No abnormal movements, No abnormal speech, No behavioral changes, No burning sensations, No confusion, No convulsions, No disequilibrium, No dizziness, No localized weakness, No frequent falls, No headache(s), No lack of coordination, No loss of vision, No memory loss, No numbness, No other visual disturbances, No radicular pain, No restless legs, No sensory deficit, No syncope, No tingling, No tremor(s), No weakness and No other Exam Const General: cooperative Orientation: alert and oriented x3 HENMT Head: normal to inspection Neck Neck: normal visual inspection and full ROM Chest Chest palpation & inspection: normal inspection of the chest Resp Effort & Inspection: normal respiratory effort Auscultation: clear to auscultation bilaterally Cardio Rate: regular rate Rhythm: regular rhythm GI Inspection: non-distended Palpation: soft and nontender Skin General: no rashes or lesions noted Neuro General: patient alert and patient oriented x3 Extrem General: full ROM Psych Appearance: grossly normal Mental Status: mental status grossly normal Assessment and Plan Assessment and Plan (1) RUQ pain: ?Status:?Acute (2) Colon adenocarcinoma: ?Status:?Chronic ?Comment: Stage II disease. No evidence of disease clinically. ? ? ? Orders: Orders Colonoscopy Today C18.9 - Malignant neoplasm of colon, unspecified ? EGD Today R10.11 - Right upper quadrant painA ? Gallbladder Today R10.11 - Right upper quadrant pain ? Plan The patient has a history of colon cancer and requires follow-up colonoscopy for surveillance.? The patient also was having right upper quadrant pain and is already on a PPI but does not take it daily.? I recommended she begin taking this daily.? I will perform an EGD at the same time of colonoscopy to check for ulceration in the stomach. I explained endoscopy in detail to the patient.? I explained the risks including but not limited to stroke or heart attack with anesthesia, perforation of the GI tract, bleeding, infection.? I explained that any of these could necessitate further emergency surgery.? The patient understands and all questions were answered sufficiently.? The patient wishes to proceed with procedure. Cam Noyola MD Pager: [facility] [address] [place] [address], [address] [place] [address] Office: I have seen and reexamined the patient and there are no changes
[2021-11-29 07:35] VITALS: BP 111/66; BP 141/84; PULSE 79; RESP 16; TEMP 36.9; O2SAT 93
--- NOTE | 2021-11-29 07:36 | OP.EGD_ITS ---
Patient Name: Rhea Lawrence Procedure Date: 11/29/2021 6:42 AM Date of : 1945 Age: 76 Procedure: Upper GI endoscopy Indications: Abdominal pain in the right upper quadrant Providers: Cam Noyola MD Referring MD: Cassius Monaco MD Medicines: Monitored Anesthesia Care Patient Profile: This is a 76 year old female. Refer to note in patient chart for documentation of history and physical. Complications: No immediate complications. Procedure: Pre-Anesthesia Assessment: - Prior to the procedure, a History and Physical was performed, and patient medications and allergies were reviewed. The patient's tolerance of previous anesthesia was also reviewed. The risks and benefits of the procedure and the sedation options and risks were discussed with the patient. All questions were answered, and informed consent was obtained. Prior Anticoagulants: The patient has taken no previous anticoagulant or antiplatelet agents. After reviewing the risks and benefits, the patient was deemed in satisfactory condition to undergo the procedure. After obtaining informed consent, the endoscope was passed under direct vision. Throughout the procedure, the patient's blood pressure, pulse, and oxygen saturations were monitored continuously. The gastroscope was introduced through the mouth, and advanced to the fourth part of duodenum. The upper GI endoscopy was accomplished without difficulty. The patient tolerated the procedure well. Scope In: 7:09:09 AM Scope Out: 7:11:00 AM Total Procedure Duration Time 0 hours 1 minute 51 seconds Findings: The esophagus was normal. The stomach was normal. The examined duodenum was normal. Impression: - Normal esophagus. - Normal stomach. - Normal examined duodenum. - No specimens collected. Recommendation: - Discharge patient to home. - Resume previous diet. - Continue present medications. Procedure Code(s): --- Professional --- 97690, Esophagogastroduodenoscopy, flexible, transoral; diagnostic, including collection of specimen(s) by brushing or washing, when performed (separate procedure) Diagnosis Code(s): --- Professional --- R10.11, Right upper quadrant pain CPT copyright 2017 [employer]. All rights reserved. The codes documented in this report are preliminary and upon cattery operator review may be revised to meet current compliance requirements. Cam Noyola MD 11/29/2021 7:35:53 AM This report has been signed electronically. Number of Addenda: 0 Note Initiated On: 11/29/2021 6:42 AM
--- NOTE | 2021-11-29 07:37 | OP.CCLET_ITS ---
11/29/2021 Cassius Monaco MD [address] [place] [address] Re : Upper GI endoscopy procedure for Rhea Lawrence Dear Dr. Monaco This procedure was performed on Monday, November 29, 2021. My impressions and recommendations are as follows: Impressions : - Normal esophagus. - Normal stomach. - Normal examined duodenum. - No specimens collected. Recommendations : - Discharge patient to home. - Resume previous diet. - Continue present medications. My findings are described in the full procedure note, which is enclosed. If I can be of further assistance, please feel free to contact me at Doctor phone number(s): , Work: . Sincerely, Cam Noyola MD 11/29/2021 7:35:53 AM This report has been signed electronically.
[2021-11-29 07:40] VITALS: BP 118/56; BP 141/84; PULSE 86; RESP 16; O2SAT 96
--- NOTE | 2021-11-29 07:40 | OP.COLON_ITS ---
Patient Name: Rhea Lawrence Procedure Date: 11/29/2021 7:11 AM Date of : 1945 Age: 76 Procedure: Colonoscopy Indications: High risk colon cancer surveillance: Personal history of colon cancer Providers: Cam Noyola MD Referring MD: Cassius Monaco MD Medicines: Monitored Anesthesia Care Patient Profile: This is a 76 year old female. Refer to note in patient chart for documentation of history and physical. Refer to note in patient chart for documentation of history and physical. Last Colonoscopy: 1 year ago. Complications: No immediate complications. Procedure: Pre-Anesthesia Assessment: - Prior to the procedure, a History and Physical was performed, and patient medications and allergies were reviewed. The patient's tolerance of previous anesthesia was also reviewed. The risks and benefits of the procedure and the sedation options and risks were discussed with the patient. All questions were answered, and informed consent was obtained. Prior Anticoagulants: The patient has taken no previous anticoagulant or antiplatelet agents. After reviewing the risks and benefits, the patient was deemed in satisfactory condition to undergo the procedure. After I obtained informed consent, the scope was passed under direct vision. Throughout the procedure, the patient's blood pressure, pulse, and oxygen saturations were monitored continuously. The pediatric colonoscope was introduced through the anus and advanced to the ileocolonic anastomosis. The colonoscopy was performed without difficulty. The patient tolerated the procedure well. The quality of the bowel preparation was good. Scope In: 7:14:40 AM Scope Withdrawal Time 0 hours 4 minutes 55 seconds Scope Out: 7:31:47 AM Total Procedure Duration Time 0 hours 17 minutes 7 seconds Findings: The entire examined colon appeared normal on direct and retroflexion views. Impression: - The entire examined colon is normal on direct and retroflexion views. - No specimens collected. Recommendation: - Discharge patient to home. - Resume previous diet. - Continue present medications. - Repeat colonoscopy in 1 year for surveillance. Procedure Code(s): --- Professional --- 85500, Colonoscopy, flexible; diagnostic, including collection of specimen(s) by brushing or washing, when performed (separate procedure) Diagnosis Code(s): --- Professional --- Z85.038, Personal history of other malignant neoplasm of large intestine CPT copyright 2017 [employer]. All rights reserved. The codes documented in this report are preliminary and upon escape wheel tooth cutter review may be revised to meet current compliance requirements. Cam Noyola MD 11/29/2021 7:39:58 AM This report has been signed electronically. Number of Addenda: 0 Note Initiated On: 11/29/2021 7:11 AM
--- NOTE | 2021-11-29 07:41 | OP.CCLET_ITS ---
11/29/2021 Cassius Monaco MD [address] [place] [address] Re : Colonoscopy procedure for Rhea Lawrence Dear Dr. Monaco This procedure was performed on Monday, November 29, 2021. My impressions and recommendations are as follows: Impressions : - The entire examined colon is normal on direct and retroflexion views. - No specimens collected. Recommendations : - Discharge patient to home. - Resume previous diet. - Continue present medications. - Repeat colonoscopy in 1 year for surveillance. My findings are described in the full procedure note, which is enclosed. If I can be of further assistance, please feel free to contact me at Doctor phone number(s): , Work: . Sincerely, Cam Noyola MD 11/29/2021 7:39:58 AM This report has been signed electronically.
[2021-11-29 07:45] VITALS: BP 141/84; BP 93/62; PULSE 88; RESP 16; O2SAT 96
[2021-11-29 07:50] VITALS: BP 141/84; BP 99/63; PULSE 86; RESP 16; TEMP 37.2; O2SAT 95
[2021-11-29 08:13] VITALS: BP 141/84; RESP 18
== END 2021-11-29 08:30 | disposition home or self-care (01) ==
LOC: EN 05:40 → AC 05:40
PROVIDERS: PCP Family Medicine Geriatric Medicine; Referring Provider Family Medicine Geriatric Medicine; Visit Provider Surgery
PROC: 0DJD8ZZ Inspection of Lower Intestinal Tract, Via Natural or Artificial Opening Endoscopic (ICD-10-PCS; CPT 45378; principal; 2021-11-29 07:25)
DX: R10.11 Right upper quadrant pain (principal); I48.0 Paroxysmal atrial fibrillation; Z79.01 Long term (current) use of anticoagulants; Z85.038 Personal history of other malignant neoplasm of large intestine; E78.2 Mixed hyperlipidemia; I10 Essential (primary) hypertension; K21.9 Gastro-esophageal reflux disease without esophagitis
CPT/HCPCS: 43235; 45378; J7120; J2405

== ENCOUNTER → 2021-12-20 | Outpatient (CLI) | payer MEDICARE, OTHER, SELFPAY ==
--- NOTE | 2021-12-20 08:17 | CT_ITS ---
STUDY: CT ABDOMEN AND PELVIS WITH CONTRAST REASON FOR EXAM: Female, 76 years old. MONITOR COLON CA RADIATION DOSAGE (If Supplied By Facility): CTDIvol = ( 31.24 ) mGy, DLP = ( 743.89 ) mGycm TECHNIQUE: Transaxial images were obtained from the dome of the diaphragm to the symphysis pubis without oral contrast. IV 100mL Isovue-300 was administered. Sagittal and coronal images were reconstructed. Individualized dose optimization techniques were used for this CT. COMPARISON: None. FINDINGS: Minimal increased markings at the right lung base suggestive of right basilar atelectasis. The visualized portions of the heart are within normal limits. Heterogeneous appearance of the liver parenchyma. Correlation with ultrasound is recommended. Pericholecystic fluid. Mildly thickened gallbladder wall. Normal spleen. Normal pancreas. Normal bilateral adrenal glands. 8.7 mm cyst in the upper anterior aspect of the right kidney as well as a 5.8 mm cyst in the lateral midportion of the right kidney. There is a 6.3 mm cyst in the anterior aspect of the left kidney. Normal visualized stomach. Normal small intestine. The patient is status post right hemicolectomy. Scattered sigmoid diverticula. There are surgical clips in the region of the appendix consistent with a prior appendectomy. There is scattered atherosclerotic calcification of the abdominal aorta, without a demonstrated aneurysm. Normal inferior vena cava. There is borderline retroperitoneal lymphadenopathy with enlarged nodes no greater than 10mm in the short axis diameter. Normal urinary bladder. There is absence of the uterus consistent with a prior hysterectomy. Normal abdominal wall. Normal osseous structures. CT/Abdomen/Pelvis W IV Cont ONLY IMPRESSION: Heterogeneous appearance of the liver. Mild degree of both thickening of the gallbladder wall with pericholecystic fluid. Correlation with ultrasound is recommended. Small bilateral renal cysts. Status post right hemicolectomy. Electronically Signed: Nik Guzman MD at 9:18 EDT ,
[2021-12-20 08:40] LABS: CREATININE FINGERSTICK < 0.9 mg/dL (0.55-1.02); EGFR FINGERSTICK > 60.0000 mL/min (>60)
== END | disposition home or self-care (01) ==
LOC: CT 08:16
PROVIDERS: PCP Family Medicine Geriatric Medicine; Referring Provider Internal Medicine Medical Oncology; Visit Provider Internal Medicine Medical Oncology
DX: C18.9 Malignant neoplasm of colon, unspecified (principal)
CPT/HCPCS: 74177

== ENCOUNTER → 2022-03-05 | Outpatient (CLI) | payer MEDICARE, OTHER, SELFPAY ==
[2022-03-05 13:15] LABS: Absolute Lymphocyte Count 1.02 X10^3/uL (0.83-4.51); Basophil# 0.01 X10^3/uL; Basophil% 0.2 % (0-1); Eosinophil# 0.17 X10^3/uL; Eosinophils% 3.5 % (0-5); Hematocrit 35.2 % (37-47); Hemoglobin 11.3 g/dL (12.0-15.0); Lymphocyte # 1.02 X10^3/ul (0.83-4.51); Lymphocyte % 21.1 % (19-41); Mean Corp Hgb Conc 32.1 g/dL (32-36); Mean Corpuscular Hgb 31.5 pg (27.0-32.0); Mean Corpuscular Volume 98.1 fL (81-99); Mean Platelet Vol. 9.3 fl (6.2-12.0); Monocyte# 0.59 X10^3/uL; Monocyte% 12.2 % (0-10); NRBC Flagged by Analyzer 0 % (0-5); Neutrophil # 3.04 X10^3/uL (2.7-7.7); Neutrophil % 62.8 % (47-70); Platelet Count 197 K/mm3 (150-450); RBC Distribution Width CV 14.5 % (11.6-14.6); RBC Distribution Width SD 52.1 fl (35.1-43.9); Red Blood Count 3.59 M/mm3 (4.2-5.4); White Blood Count 4.8 K/mm3 (4.4-11.0)
[2022-03-05 13:46] LABS: Vitamin D,25 Hydroxy 33.6 ng/mL
[2022-03-05 14:13] LABS: ALB/GLOB Ratio 1.3 RATIO (0.9-2.4); AST(SGOT) 29 U/L (15-37); Alanine Aminotransfer ALT/SGPT 18 U/L (13-56); Alkaline Phosphatase 88 U/L (45-117); Anion Gap 9 (5-15); BUN 13 mg/dL (7-18); Calcium,Total 8.9 mg/dL (8.5-10.1); Chloride 104 mmol/L (98-107); Creatinine, Serum 0.93 mg/dL (0.55-1.02); EST Glomerular Filtration Rate 62 mL/min (>60); Est Glom Filt Rate - Afr Amer 75 mL/min (>60); Globulin 3.1 g/dL (2.2-4.2); Glucose 105 mg/dL (74-106); Potassium 3.5 mmol/L (3.5-5.1); Protein, Total 7.1 g/dL (6.4-8.2); Sodium Level 140 mmol/L (136-145); Thyroid Stim Hormone (TSH) 1.33 uIU/mL (0.358-3.74)
== END | disposition home or self-care (01) ==
LOC: POLAB3 10:49
PROVIDERS: PCP Family Medicine Geriatric Medicine; Visit Provider Family Medicine Geriatric Medicine
DX: E11.65 Type 2 diabetes mellitus with hyperglycemia (principal); I10 Essential (primary) hypertension; E55.9 Vitamin D deficiency, unspecified
CPT/HCPCS: 36415; 80053; 82306; 84443; 85025

== ENCOUNTER → 2022-04-16 | Outpatient (CLI) | payer MEDICARE, OTHER, SELFPAY ==
--- NOTE | 2022-04-16 11:02 | CT_ITS ---
STUDY: CT ABDOMEN AND PELVIS WITHOUT CONTRAST REASON FOR EXAM: Female, 76 years old. POSSIBLE HERNIA. Worsening of left-sided abdominal pain. History of a colon cancer and partial colectomy. RADIATION DOSAGE (If Supplied By Facility): CTDIvol = ( 10.45 ) mGy, DLP = ( 390.77 ) mGycm TECHNIQUE: Transaxial images were obtained from the dome of the diaphragm to the symphysis pubis without oral contrast, and without intravenous contrast. Sagittal and coronal images were reconstructed. Individualized dose optimization techniques were used for this CT. COMPARISON: Comparison is made with prior study dated 12/20/2021. FINDINGS: The visualized lung bases are unremarkable. The visualized portions of the heart are within normal limits. Normal liver. Increased density within the gallbladder lumen suggestive of either tiny gallstones or sludge. Normal spleen. Normal pancreas. Normal bilateral adrenal glands. Normal right kidney. Normal left kidney. Normal visualized stomach. Normal small intestine. The patient is status post partial right hemicolectomy. There is non-visualization of the appendix. There is diffuse atherosclerotic calcification of the abdominal aorta, without a demonstrated aneurysm. Normal inferior vena cava. There is borderline retroperitoneal lymphadenopathy with enlarged nodes no greater than 10mm in the short axis diameter. Normal urinary bladder. There is absence of the uterus consistent with a prior hysterectomy. Normal abdominal wall. Almost complete collapse of the L1 vertebrae. CT/Abdomen/Pelvis without Cont IMPRESSION: Increased density within the gallbladder lumen suggestive of either gallstones or sludge. Status post right hemicolectomy. Electronically Signed: Nik Guzman MD at 13:43 EST ,
== END | disposition home or self-care (01) ==
PROVIDERS: PCP Family Medicine Geriatric Medicine; Referring Provider Family Medicine Geriatric Medicine; Visit Provider Family Medicine Geriatric Medicine
DX: R59.1 Generalized enlarged lymph nodes (principal); I70.0 Atherosclerosis of aorta
CPT/HCPCS: 74176

== ENCOUNTER → 2022-04-30 | Outpatient (CLI) | payer MEDICARE, OTHER, SELFPAY ==
--- NOTE | 2022-04-30 07:41 | US_ITS ---
STUDY: ABDOMINAL ULTRASOUND - RIGHT UPPER QUADRANT REASON FOR VISIT: Female, 76 years old . Abdominal pain. TECHNIQUE: Ultrasound evaluation of the right upper quadrant was performed with real-time and static short-scale imaging. TECHNICAL QUALITY: Adequate. COMPARISON: Comparison is made with prior examination 10/24/2021. FINDINGS: Liver: The liver measures 15.8 cm. There is a heterogeneous echogenicity of the liver. The bile ducts are within normal limits. There is hepatic color flow. The direction of portal flow is hepatopetal. There is no demonstrated mass lesion. Gallbladder: Normal distended gallbladder. The gallbladder wall is thickened and measures 5 mm. There is a positive sonographic Wagner''s sign. There is pericholecystic fluid. There are multiple echogenic structures within the gallbladder, consistent with multiple small gallstones. Common Bile Duct (C.B.D.): The common bile duct measures 5 mm. Pancreas: Normal size of the head, body and tail of the pancreas. There is normal echogenicity of the pancreas. There is no demonstrated pancreatic mass or cyst. Right Kidney: Normal size of the right kidney. The right kidney measures 8.6 cm x 3.6 cm x 3.7 cm. Normal renal cortex. The right cortex measures 1.6 cm. There is a 1.1 cm x 1 cm x 0.9 cm cyst in the upper pole. There is no right hydronephrosis. US/Gallbladder IMPRESSION: Multiple small gallstones with mild thickening of the gallbladder wall. Minimal pericholecystic fluid. Right renal cyst. Electronically Signed: Nik Guzman MD at 10:48 EST ,
== END | disposition home or self-care (01) ==
LOC: US 07:37
PROVIDERS: PCP Family Medicine Geriatric Medicine; Referring Provider Surgery; Visit Provider Surgery
DX: R10.11 Right upper quadrant pain (principal)
CPT/HCPCS: 76705

== ENCOUNTER 2022-05-01 15:36 | Inpatient (IN) | payer MEDICARE, OTHER, SELFPAY ==
[2022-05-01] VITALS (19 sets, daily range): BP systolic 139–164; BP diastolic 87–109; PULSE 11–126; RESP 16–30; TEMP 36.3–36.9; O2SAT 65–100; BMI 33.7
--- NOTE | 2022-05-01 12:17 | EKG12_ITS ---
Test Reason : PREOP Blood Pressure : / mmHG Vent. Rate : 097 BPM Atrial Rate : 441 BPM P-R Int : 000 ms QRS Dur : 102 ms QT Int : 382 ms P-R-T Axes : 000 072 002 degrees QTc Int : 485 ms Atrial fibrillation with premature ventricular or aberrantly conducted complexes Abnormal ECG When compared with ECG of 13-MAY-2021 08:52, No significant change was found Confirmed by CECIL JULES, MARGI ([id number]), map editor LLOYD MENDES ([id number]) on 05/08/2022 10:53:26 AM Referred By: CATRINA Confirmed By:MARGI JACOB MD
[2022-05-01] MEDS: Lactated Ringers 1,000 ML 15 ML IV (12:26)
[2022-05-01 12:42] LABS: International Normalized Ratio 1.3; Partial Thromboplast Time 32.3 Seconds (24.1-36.2); Prothrombin Time (Protime)PT. 16.3 SECONDS (11.7-14.9)
--- NOTE | 2022-05-01 13:33 | GALL_PTH ---
PATIENT: MARGARETTE WISE LOC: MS3 U#:[id number] AGE/SX: 76/F ROOM: TX311 RE05/02/[address]: Dr. Cam Noyola MD : 1945 BED: 1 DIS: 05/03/2022 SPEC #: [id number] RECD: 05/01/22 16:55 STATUS: ANGELA MONTALVO #: [id number] JOAN: 05/01/22 13:[address]: Cam Noyola DEPT: SURGICAL PATHOLOGY RECD BY: Percy Feliciano ENTERED: 05/02/22 09:09 SP TYPE: DAVY ALLAN DR: Dr. Cassius Monaco MD Tissues: Gallbladder, NOS Procedures: Surgery Specimen Level III HEADER OPERATION: Laparoscopic cholecystectomy PRE-OP DIAGNOSIS: Chronic cholecystitis TISSUE SUBMITTED: Gallbladder and contents MICROSCOPIC DIAGNOSIS Gallbladder, cholecystectomy: Chronic cholecystitis and sludge. AM:spencer 05/05/2022 MICROSCOPIC DESCRIPTION Slides are reviewed. GROSS DESCRIPTION Received is one container labeled with the patient's name and designated gallbladder. The specimen consists of a gallbladder measuring 6 x 2.5 x 2 cm. The external surface is smooth and glistening. Focally, it is granular, hemorrhagic and contains cautery artifact. The lumen of the gallbladder contains yellow-green mucoid bile and some sludge and no calculi. The mucosa is bile-stained and without any mass lesions. The gallbladder wall averages 0.2 cm in thickness and is free of mass lesions. Environmental Auditor sections of the gallbladder and the cystic duct at margin of resection are submitted in one cassette. / AM:spencer 05/02/2022 TC:3 CPT: 84867
--- NOTE | 2022-05-01 13:58 | HP.PCM.SX_ITS ---
HPI - General HPI Narrative MARGARETTE WISE, is a 76 F who presents for laparoscopic cystectomy. Patient was recently having epigastric and right upper quadrant pain and they ordered an ultrasound for which showed signs of acute cholecystitis. Patient has been having pain since summer but at that time her ultrasound was normal and EGD was normal. [facility] Medical History (Updated 05/01/22 @ 13:[address] Cam Noyola MD) Abdominal pain Adenocarcinoma (~10/2020) Adenocarcinoma of cecum Anemia Anxiety Arthritis Atrial fibrillation Atrial fibrillation with RVR Back pain bilateral feet surgery Bradycardia CAD (coronary artery disease) Cancer Cardiology follow-up encounter Cerumen impaction Complicated UTI (urinary tract infection) Costochondritis Depression Difficult intravenous access Easy bruising Essential hypertension GERD (gastroesophageal reflux disease) High cholesterol History of echocardiogram History of edema History of stress test History of ulceration 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 alf current use of anticoagulant Longstanding persistent atrial fibrillation Low iron Mixed hyperlipidemia Moderate to severe pulmonary hypertension Non-rheumatic mitral regurgitation Non-rheumatic tricuspid valve insufficiency Non-smoker Non-smoker Normal echocardiogram (~06/08/20) Normal stress echocardiogram (~06/03/17) Paroxysmal atrial fibrillation Rt flank pain Secondary pulmonary hypertension Severe mitral regurgitation Shortness of breath on exertion Syncope and collapse Vertigo Wears dentures Home Medications potassium chloride 20 mEq tablet,extended release 20 meq PO DAILY supplement #90 tabs 01/13/20 [Rx Last Taken Unknown] ergocalciferol (vitamin D2) 1,000 unit tablet 1 tab PO DAILY Check with primary doctor 05/28/20 [History Last Taken Unknown] omeprazole 40 mg capsule,delayed release 40 mg PO DAILY Check with primary doctor 10/29/20 [History Last Taken 11/29/21] acetaminophen 500 mg tablet 1,000 mg PO Q6 PRN pain #1 TAB 11/01/20 [Rx Last Taken Unknown] ferrous sulfate 325 mg (65 mg iron) tablet (Iron (ferrous sulfate)) 325 mg PO BID 01/17/21 [History Last Taken Unknown] furosemide 40 mg tablet 40 mg PO DAILY #90 tabs 07/22/21 [Rx Last Taken Unknown] pravastatin 40 mg tablet 40 mg PO QHS Check with primary doctor #90 tabs 09/30/21 [Rx Last Taken Unknown] metoprolol tartrate 100 mg tablet 100 mg PO BID #180 tabs 03/24/22 [Rx Last Taken 05/01/22] isosorbide mononitrate 30 mg tablet,extended release 24 hr 30 mg PO BID 04/30/22 [History Last Taken 05/01/22] lisinopril 40 mg tablet 40 mg PO DAILY 04/30/22 [History Last Taken 05/01/22] Allergy/AdvReac Type Severity Reaction Status Date / Time piroxicam Allergy CAUSES Verified 05/01/22 12:26 BLEEDING ULCER adhesive tape AdvReac Rash/BLISTE Verified 05/01/22 12:26 RS Family History Mother 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 Father , from [place] at age 69 CAD (coronary artery disease) Myocardial infarction, Onset Age: 69 Brother 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 Heart disease Myocardial infarction Pacemaker Surgical History H/O: hysterectomy History of carpal tunnel release History of colectomy (~10/2020) History of knee replacement, total History of left heart catheterization (06/12/17) History of right and left heart catheterization (11/16/19) History of tonsillectomy History of transesophageal echocardiography (HANNY) (11/16/19) Hx of cataract extraction Hx of colonoscopy Social History Smoking Status: Never smoker alcohol intake: current alcohol intake frequency: holidays/special occasions only substance use type: does not use caffeine: Yes Type: carbonated beverages Number of servings: 1 what type of physical activity do you participate in: none Vital Signs Vital Signs Vital Signs: 05/01/22 12:27 05/01/22 12:27 Temperature 98.5 F Temperature Source Temporal Pulse Rate 97 Respiratory Rate 18 Respiratory Pattern Normal Blood Pressure 139/90 H Blood Pressure Mean 106 Blood Pressure Source Monitor Blood Pressure Position Semi-Fowlers Blood Pressure Location Right Arm Pulse Ox 96 Oxygen Delivery Method Room Air Weight Weight: 156 lb Body Mass Index (BMI) 33.7 Physical Exam Const alert and oriented x3 HEENT normocephalic Eyes PERRL Resp normal respiratory effort and normal air movement Cardio regular rate and regular rhythm GI soft to palpation and non-distended Palpation: tender RUQ Extremity normal to inspection Results Lab / Micro Data Labs: Laboratory Results - last 24 hr 05/01/22 12:20: PT 16.3 H, INR 1.3, APTT 32.3 Assessment & Plan Assessment/Plan (1) Cholecystitis, chronic: PLAN: The patient was having pain this past summer and at that time I ordered an ultrasound the gallbladder which was normal with no stones and I performed an EGD which was normal as well. Patient continued having ongoing pain and had a CT scan in March that showed cholelithiasis and possible sludge. Patient had ongoing pain and came to see me and I ordered an ultrasound the gallbladder and this was done yesterday morning and it showed wall thickening, gallstones, pericholecystic fluid. I called the patient and discussed adding her on today for laparoscopic cholecystectomy. I discussed the procedure in detail with the patient. I discussed the risks, benefits, and alternatives of the procedure. I discussed the risks including but not limited to bleeding, infection, injury to surrounding organs such as the liver, bile duct, bowels. I did discuss the possibility of having to convert to an open procedure as well as the possibility that if any injuries occurred this may necessitate further surgery at a tertiary care center. Cam Noyola MD Pager: [facility] [address] [place] [address], [address] [place] [address] Office:
[2022-05-01] MEDS: Cefotetan 2 GM in 0.9% NS 100 ML IV (14:17)
[2022-05-01] MEDS: Bupiv/Epi 0.5% Mpf 30 ML Vial (15:31)
--- NOTE | 2022-05-01 15:41 | OP.PCM_ITS ---
Report of Operation Date of Procedure: 05/01/22 Pre-Operative Diagnosis: Acute on chronic cholecystitis Post-Operative Diagnosis: Same Surgery/Procedure Performed:: Laparoscopic cholecystectomy Specimen's removed: Gallbladder Description of Procedure: After obtaining informed consent patient was brought back to the operating room. General anesthesia was induced. The abdomen was prepped and draped in usual sterile fashion. A small midline incision was made superior to the umbilicus and deepened to the level of fascia. The fascia was elevated and incised. Next the peritoneum was elevated and incised in the same fashion. Finger sweep was performed and the Diop trocar was placed into the abdomen. The balloon was inflated. The abdomen was inflated to 15 mmHg. Next a camera was introduced into the abdomen and the abdomen was inspected. Next under direct visualization three 5-mm ports were placed one subxiphoid and 2 subcostal. Next the gallbladder was elevated and retracted toward the right shoulder. The peritoneum was stripped from the gallbladder. The infundibulum was located and retracted laterally. Next the triangle of Calot was dissected and the cystic duct and cystic artery were identified. Cholangiograms were performed. The Roman clamp was used to clamp across the infundibulum and the catheter needle was inserted into the gallbladder. Under fluoroscopy contrast was instilled i nto the gallbladder and the common duct, cystic duct as well as proximal hepatic ducts were identified. There was good filling of the duodenum. There were no filling defects noted in the common bile duct. The clamp was removed as well as the needle and the infundibulum was grasped once more. Three hemolock clips were placed across the cystic duct. The cystic duct was then divided leaving 2 clips on the stump. The cystic artery was clipped and divided in the same fashion. The hook cautery was then used to take the gallbladder off of the gallbladder bed. There was a substantial amount of bleeding from a vessel at the distal end of the gallbladder fossa. Pressure was held and then Floseal and fibrillar were placed over the gallbladder fossa and pressure was applied. The bleeding appeared to slow. Next argon beam coagulation was used to stop any residual oozing. The fibrillar was reapplied to the gallbladder fossa. Gallbladder fossa was irrigated and no active bleeding or bile leakage was noted. Next the camera was introduced in the subxiphoid port. An Endopouch bag was placed through the umbilical port and the gallbladder was placed into it. The gallbladder was then removed through the umbilical incision. The camera was then reinserted through the umbilical port. The gallbladder fossa was inspected once more and noted to be hemostatic with no leaking bile. The abdomen was suctioned dry. The 5 mm ports were removed under direct visualization. The umbilical port was then removed and the air was removed from the abdomen. Next using an 0 Vicryl suture the umbilical fascia was closed in a [id number] fashion. The umbilical port site was irrigated local anesthetic was administered to all the incisions. All the incisions were closed with interrupted subcuticular 4-0 Monocryl sutures followed by Steri-Strips and dressings. The patient was awoken and taken to PACU in stable condition. Due to the bleeding the patient will be observed overnight and serial hemoglobins will be obtained. Admit VTE Documentation VTE Mechan Device Prophylaxis: SCD's
[2022-05-01 17:44] LABS: Hematocrit 33.7 % (37-47); Hemoglobin 10.6 g/dL (12.0-15.0)
[2022-05-01] MEDS: 0.9% Normal Saline 1,000 ML 60 ML IV (18:40)
[2022-05-01] MEDS: Ondansetron 4 MG/2 ML Vial IV (18:54)
--- NOTE | 2022-05-01 19:30 | NURSING ---
Pt sleeping po drop down into 60s while sleeping. Once pt awaken po back into 90s. o2 at 2lnc
[2022-05-01] MEDS: Isosorbide Mononitrate 30 MG Tablet PO (21:55)
[2022-05-01] MEDS: Metoprolol Tartrate 100 MG Tablet PO (21:55)
[2022-05-01] MEDS: Pravastatin 40 MG Tablet PO (21:55)
--- NOTE | 2022-05-01 22:01 | NURSING ---
Pt had a burst of afib rvr 140.
[2022-05-01 23:32] LABS: Hematocrit 31.7 % (37-47); Hemoglobin 10.1 g/dL (12.0-15.0)
--- NOTE | 2022-05-01 23:32 | NURSING ---
Addendum entered by Sue Hayden 05/02/22 04:05: Pt given the is. Pt asked if she is sensitive to anesthesia, Pt denied. will monitor Original Note: Pt very lethargic. Pt awaken to move to side of bed. Pt remains very lethargic and short in color. Pt put back to bed.
[2022-05-02] VITALS (13 sets, daily range): BP systolic 100–144; BP diastolic 65–92; PULSE 80–106; RESP 17–18; TEMP 36.6–37.2; O2SAT 81–100
--- NOTE | 2022-05-02 03:40 | NURSING ---
Pt more awake. Pt color improved. Pt said she feels so good and that she has not been sleeping for a few days. Sprite and ice chips given
--- NOTE | 2022-05-02 05:39 | NURSING ---
Pt walk to bathroom. gait steady. voided asst back. Pt placed on ra
[2022-05-02 07:42] LABS: Absolute Lymphocyte Count 0.41 X10^3/uL (0.83-4.51); Absolute Neutrophil Count 7.7 X10^3/uL (2.0-7.7); Hematocrit 29.4 % (37-47); Hemoglobin 9.4 g/dL (12.0-15.0); Lymphocyte # 0.41 X10^3/ul (0.83-4.51); Lymphocyte % 4.7 % (19-41); Mean Corpuscular Hgb 31.9 pg (27.0-32.0); Mean Corpuscular Volume 99.7 fL (81-99); Mean Platelet Vol. 9.5 fl (6.2-12.0); Monocyte# 0.67 X10^3/uL; Monocyte% 7.6 % (0-10); NRBC Flagged by Analyzer 0 % (0-5); Neutrophil # 7.69 X10^3/uL (2.7-7.7); Neutrophil % 87.2 % (47-70); POSITIVE DIFFERENTIAL YES; Platelet Count 168 K/mm3 (150-450); RBC Distribution Width CV 14.4 % (11.6-14.6); RBC Distribution Width SD 51.5 fl (35.1-43.9); Red Blood Count 2.95 M/mm3 (4.2-5.4); White Blood Count 8.8 K/mm3 (4.4-11.0)
[2022-05-02 07:48] LABS: Differential Indicated SCAN CRITERIA MET
[2022-05-02] MEDS: Furosemide 40 MG Tablet PO (07:57)
[2022-05-02] MEDS: Isosorbide Mononitrate 30 MG Tablet PO ×2 (07:57→21:55)
[2022-05-02] MEDS: Pantoprazole Sodium 40 MG Tablet PO (07:57)
[2022-05-02] MEDS: Metoprolol Tartrate 100 MG Tablet PO (07:57)
[2022-05-02] MEDS: Potassium Chloride Oral Tablet 20 MEQ PO (07:58)
[2022-05-02] MEDS: Lisinopril 40 MG Tablet PO (07:58)
[2022-05-02 08:10] LABS: ALB/GLOB Ratio 1.1 RATIO (0.9-2.4); AST(SGOT) 64 U/L (15-37); Alanine Aminotransfer ALT/SGPT 26 U/L (13-56); Albumin, Serum 3.3 g/dL (3.2-5.0); Alkaline Phosphatase 67 U/L (45-117); Anion Gap 8 (5-15); BUN 23 mg/dL (7-18); BUN/Creat Ratio 17.6 RATIO (10-20); Calcium,Total 8.7 mg/dL (8.5-10.1); Chloride 104 mmol/L (98-107); Creatinine, Serum 1.31 mg/dL (0.55-1.02); EST Glomerular Filtration Rate 42 mL/min (>60); Est Glom Filt Rate - Afr Amer 51 mL/min (>60); Estimated Creatinine Clearance 40.81 ml/min; Globulin 2.9 g/dL (2.2-4.2); Glucose 133 mg/dL (74-106); Potassium 3.9 mmol/L (3.5-5.1); Protein, Total 6.2 g/dL (6.4-8.2); Sodium Level 142 mmol/L (136-145)
[2022-05-02 09:34] LABS: Differential Comment SCANNED
[2022-05-02] MEDS: Acetaminophen 325 MG Tablet 650 MG PO ×3 (10:16→21:53)
[2022-05-02] MEDS: 0.9% Normal Saline 1,000 ML 60 ML IV (11:24)
--- NOTE | 2022-05-02 11:54 | NURSING ---
Pt sitting in recliner, at rest o2 was 87, o2 applied 2 L nc, and it increased to 96 along with using the incentive spirometer.
[2022-05-02 13:05] LABS: Hematocrit 32.2 % (37-47); Hemoglobin 9.4 g/dL (12.0-15.0)
[2022-05-02] MEDS: oxyCODONE 5 MG Tablet PO (14:01)
--- NOTE | 2022-05-02 14:55 | PN.SURG_ITS ---
Subjective Subjective Patient reports that she was doing well this morning with no discomfort or nausea or vomiting. Objective Data Objective Data Vital Signs: Vital Signs Temp Pulse Resp BP Pulse Ox O2 Del Method O2 Flow Rate 98.2 F 92 18 111/66 100 Nasal Cannula 2 05/02/22 13:32 05/02/22 13:32 05/02/22 13:32 05/02/22 13:32 05/02/22 13:32 05/02/22 13:32 05/02/22 13:32 FiO2 100 05/01/22 16:45 Oxygen Flow Rate (L/min) 2 Oxygen Delivery Method Nasal Cannula Weight: 156 lb Body Mass Index (BMI) 33.7 Intake & Output: Intake and Output for Last 24 Hours 04/30/22 05/01/22 05/02/22 23:59 23:59 23:59 Intake Total 195 / 195 1120 / 1120 Output Total 425 / 425 Balance 195 / 195 695 / 695 Lab / Micro Data Result Diagrams: 05/02/22 12:54 05/02/22 06:45 Labs: Laboratory Results - last 24 hr 05/01/22 17:20: Blood Type O POSITIVE, Antibody Screen NEGATIVE 05/01/22 17:20: Hgb 10.6 L, Hct 33.7 L 05/01/22 23:15: Hgb 10.1 L, Hct 31.7 L 05/02/22 06:45: WBC 8.8, RBC 2.95 L, Hgb 9.4 L, Hct 29.4 L, MCV 99.7 H, MCH 31.9, MCHC 32.0, RDW Std Deviation 51.5 H, RDW Coeff of Oralia 14.4, Plt Count 168, MPV 9.5, Immature Gran % (Auto) 0.500, Neut % (Auto) 87.2 H, Lymph % (Auto) 4.7 L, [place]ette % (Auto) 7.6, Eos % (Auto) 0.0, Baso % (Auto) 0.0, Absolute Neuts (auto) 7.7, Absolute Lymphs (auto) 0.41 L, Nucleated RBC % 0, Differential Comment SCANNED 05/02/22 06:45: Sodium 142, Potassium 3.9, Chloride 104, Carbon Dioxide 30.0, Anion Gap 8, BUN 23 H, Creatinine 1.31 H, Estim Creat Clear Calc 40.81, Est GFR (MDRD) Af Amer 51 L, Est GFR (MDRD) Non-Af 42 L, BUN/Creatinine Ratio 17.6, Glucose 133 H, Calcium 8.7, Total Bilirubin 1.10 H, AST 64 H, ALT 26, Alkaline Phosphatase 67, Total Protein 6.2 L, Albumin 3.3, Globulin 2.9, Albumin/Globulin Ratio 1.1 05/02/22 12:54: Hgb 9.4 L, Hct 32.2 L Physical Exam Const oriented x3 Resp normal respiratory effort GI soft to palpation and non-tender Assessment & Plan Assessment/Plan (1) Cholecystitis, chronic: PLAN: The patient had acute blood loss during her surgery yesterday and was observed overnight. Hemoglobin checks yesterday evening and this morning show that her hemoglobin is stable. She was put on 2 L of oxygen and has been unable to wean down to room air. I went back up to see the patient this afternoon and she reports that with deep breathing her right abdomen hurts where her surgery was performed. I encouraged her to take her pain medication so she may take deep breaths. She has been using her incentive spirometer. If her pulse oximeter reading on room air is able to come up over 90% I will discharge her home today. Otherwise I will keep her 1 more night. Cam Noyola MD Pager: [facility] [address] [place] [address], [address] [place] [address] Office:
--- NOTE | 2022-05-02 14:55 | PCM.DC.SUM ---
Providers Date of Admission: 05/01/22 Primary Care Physician: Dr. Cassius Monaco MD Diagnosis Discharge Diagnosis (1) Cholecystitis, chronic: Status: Chronic Code(s): K81.1 - Chronic cholecystitis Plan: The patient was having pain this past summer and at that time I ordered an ultrasound the gallbladder which was normal with no stones and I performed an EGD which was normal as well. Patient continued having ongoing pain and had a CT scan in March that showed cholelithiasis and possible sludge. Patient had ongoing pain and came to see me and I ordered an ultrasound the gallbladder and this was done yesterday morning and it showed wall thickening, gallstones, pericholecystic fluid. I called the patient and discussed adding her on today for laparoscopic cholecystectomy. I discussed the procedure in detail with the patient. I discussed the risks, benefits, and alternatives of the procedure. I discussed the risks including but not limited to bleeding, infection, injury to surrounding organs such as the liver, bile duct, bowels. I did discuss the possibility of having to convert to an open procedure as well as the possibility that if any injuries occurred this may necessitate further surgery at a tertiary care center. Cam Noyola MD Pager: [facility] [address] [place] [address], [address] [place] [address] Office: Medications at Discharge Home Medications potassium chloride 20 mEq tablet,extended release 20 meq PO DAILY supplement #90 tabs 01/13/20 ergocalciferol (vitamin D2) 1,000 unit tablet 1 tab PO DAILY Check with primary doctor 05/28/20 omeprazole 40 mg capsule,delayed release 40 mg PO DAILY Check with primary doctor 10/29/20 acetaminophen 500 mg tablet 1,000 mg PO Q6 PRN pain #1 TAB 11/01/20 ferrous sulfate 325 mg (65 mg iron) tablet (Iron (ferrous sulfate)) 325 mg PO BID 01/17/21 furosemide 40 mg tablet 40 mg PO DAILY #90 tabs 07/22/21 pravastatin 40 mg tablet 40 mg PO QHS Check with primary doctor #90 tabs 09/30/21 metoprolol tartrate 100 mg tablet 100 mg PO BID #180 tabs 03/24/22 isosorbide mononitrate 30 mg tablet,extended release 24 hr 30 mg PO BID 04/30/22 lisinopril 40 mg tablet 40 mg PO DAILY 04/30/22 oxycodone 5 mg tablet 5 mg PO Q4H PRN PRN Pain Score 4-10 5 days #15 tabs 05/02/22 Hospital Course Operations cholecystecomy Summary of Care Provided Hospital Course: The patient had laparoscopic cholecystectomy yesterday for chronic cholecystitis. There was some acute bleeding during the surgery so she was kept for observation. Serial hemoglobins show that there was no ongoing bleeding. Once she is able to tolerate room air she will be discharged home. She is tolerating a diet and her pain is well controlled currently. Weight / BMI Weight Weight: 156 lb Body Mass Index (BMI) 33.7 ABG / Lab / Microbiology Data Result Diagrams: 05/02/22 12:54 05/02/22 06:45 Laboratory: Laboratory Results - last 24 hr 05/01/22 17:20: Blood Type O POSITIVE, Antibody Screen NEGATIVE 05/01/22 17:20: Hgb 10.6 L, Hct 33.7 L 05/01/22 23:15: Hgb 10.1 L, Hct 31.7 L 05/02/22 06:45: WBC 8.8, RBC 2.95 L, Hgb 9.4 L, Hct 29.4 L, MCV 99.7 H, MCH 31.9, MCHC 32.0, RDW Std Deviation 51.5 H, RDW Coeff of Oralia 14.4, Plt Count 168, MPV 9.5, Immature Gran % (Auto) 0.500, Neut % (Auto) 87.2 H, Lymph % (Auto) 4.7 L, [place] % (Auto) 7.6, Eos % (Auto) 0.0, Baso % (Auto) 0.0, Absolute Neuts (auto) 7.7, Absolute Lymphs (auto) 0.41 L, Nucleated RBC % 0, Differential Comment SCANNED 05/02/22 06:45: Sodium 142, Potassium 3.9, Chloride 104, Carbon Dioxide 30.0, Anion Gap 8, BUN 23 H, Creatinine 1.31 H, Estim Creat Clear Calc 40.81, Est GFR (MDRD) Af Amer 51 L, Est GFR (MDRD) Non-Af 42 L, BUN/Creatinine Ratio 17.6, Glucose 133 H, Calcium 8.7, Total Bilirubin 1.10 H, AST 64 H, ALT 26, Alkaline Phosphatase 67, Total Protein 6.2 L, Albumin 3.3, Globulin 2.9, Albumin/Globulin Ratio 1.1 05/02/22 12:54: Hgb 9.4 L, Hct 32.2 L D/C Instructions Discharge Diet: Light diet - advance as tolerated Discharge Activity: May Drive (for 2-3 days or while taking narcotic pain medications.) and - (Do not drive, work heavy equipment or sign legal documents for 24 hours.) May shower in (days): 1 Lifting Restrictions: 20 lbs for 2 weeks Additional Activity Instructions: Pain medication may cause nausea. You should typically eat light foods as you take your pain medications. Pain medication may cause constipation. If this is a problem for you, please discuss with your doctor. Call your doctor if your incision/area has: Continuous Slow Oozing, Sudden Increased Bleeding, Increased Pain/ Swelling, Increased Redness and Foul Smelling Discharge Call your doctor if you observe: Fever of 101 or Higher Suture Line Care: Avoid Pulling/Pushing and Avoid Pinching/Bending Remove Dressing in: 2 days Additional Dressing/Incision Instructions: Leave operative bandaids on for 2 days. When you remove dressing, leave Steri-Strips on until your follow-up appointment, or until the Steri-Strips fall off on their own. Please Follow Up With: Cam Noyola MD When: Please call to schedule 2 week follow up appointment at [phone] Meaningful Use Info Meaningful Use Diagnoses (Choose all that apply): None applicable Discharge Plan Admission Admit Date/Time: 05/01/22 15:36 Attending Provider: Cam Noyola Primary Care Provider: Cassius Monaco Chi Discharge Orders/Prescriptions Prescriptions: New oxycodone 5 mg Tablet 5 mg PO Q4H PRN PRN (Reason: Pain Score 4-10) 5 Days Qty: 15 0RF Continued ergocalciferol (vitamin D2) 1,000 unit tablet 1,000 unit tablet 1 tab PO DAILY ferrous sulfate [Iron (ferrous sulfate)] 325 mg (65 mg iron) tablet 325 mg PO BID omeprazole 40 mg capsule,delayed release(DR/EC) 40 mg PO DAILY acetaminophen 500 mg Tablet 1,000 mg PO Q6 PRN (Reason: pain) Qty: 1 0RF isosorbide mononitrate 30 mg tablet extended release 24 hr 30 mg PO BID lisinopril 40 mg tablet 40 mg PO DAILY potassium chloride 20 mEq tablet extended release 20 meq PO DAILY Qty: 90 3RF furosemide 40 mg tablet 40 mg PO DAILY Qty: 90 3RF pravastatin 40 mg tablet 40 mg PO QHS Qty: 90 3RF Hold Instructions: Leg weakness metoprolol tartrate 100 mg tablet 100 mg PO BID Qty: 180 3RF Referrals / Follow Up: Cassius Monaco Chi, MD [Primary Care Provider] - Disposition Disposition (needs filled in before D/C Order can be placed): Home, Self Care
--- NOTE | 2022-05-02 15:55 | RAD_ITS ---
STUDY: X-RAY CHEST REASON FOR EXAM: Female, 76 years old. Hypoxia TECHNIQUE: PA and lateral views of the chest. COMPARISON: Chest, December 07, 2019. CT of the chest, October 03, 2020. FINDINGS: The lungs are clear and expanded. There is no demonstrated pleural abnormality. The heart is mildly moderately enlarged. Normal mediastinum and derek. Normal visualized pulmonary arteries. There is atherosclerotic calcification of the aortic arch with tortuosity. The degenerative changes and demineralization of the thoracic spine. There is a compression deformity with vertebral augmentation of the T10 vertebra. There is a second compression deformity of L1. Both are stable when compared to the recent CT. There is degenerative osteoarthritis of the bilateral shoulders. There is no demonstrated abnormality of the visualized soft tissue structures of the upper abdomen. RAD/Chest PA and Lateral IMPRESSION: 1. Stable cardiomegaly without acute pulmonary disease. No major interval change. Electronically Signed: Martín Cazares DO at 16:10 EST ,
[2022-05-02] MEDS: Pravastatin 40 MG Tablet PO (21:55)
[2022-05-03] VITALS (7 sets, daily range): BP systolic 117–131; BP diastolic 71–92; PULSE 83–103; RESP 18; TEMP 36.9; O2SAT 90–95
[2022-05-03] MEDS: 0.9% Normal Saline 1,000 ML 60 ML IV (03:42)
[2022-05-03] MEDS: Acetaminophen 325 MG Tablet 650 MG PO (03:42)
--- NOTE | 2022-05-03 05:59 | CON.PCM.CC_ITS ---
Assessment & Plan Assessment/Plan (1) Hypoxia: PLAN: Plan RECOMMENDATIONS: 1. Wean oxygen for saturations greater than 90%. 2. Remove nail haitian from the patient's finger being utilized for pulse oximetry reading. 3. Perform walking oximetry study this morning. 4. If the patient desaturates with ambulation, consider gentle diuresis. 5. Encourage aggressive incentive spirometer use and mobilize patient as tolerated. IMPRESSIONS: 1. Hypoxia The patient has been maintained on 2 L/min of supplemental oxygen following her surgical intervention. According to the patient, she did not require supplemental oxygen previously. She has no pre-existing lung conditions. Her chest imaging was largely unremarkable. The patient did have an echocardiogram completed in November 2021, which did demonstrate a small right to left int eratrial shunt. This could be contributing to the patient's oxygenation status at the present time. On my evaluation of patient this morning, she was maintaining oxygen saturations in the mid 90s on room air. I would recommend that the nail haitian be removed from her finger, after which time, she should be ambulated in the hallway. If the patient were to desaturate with ambulation, could consider gentle diuresis, given her elevated BNP. Otherwise, I would recommend continued outpatient follow-up with Dr. Pierce cardiology. Continue to encourage aggressive incentive spirometer use while in bed. 2. Acute on chronic cholecystitis status post laparoscopic cholecystectomy Continue routine postoperative care per surgery recommendations. This note was generated with [employer] dictation software. It may contain incorrect words, spelling, and punctuation that were not noted in checking the note before signing. HPI Consult Data Date of Consult: 05/04/22 HPI Narrative Reason for Consultation: Hypoxia HPI Narrative: The patient is a 76-year-old female, with a history as outlined below, who presented for an outpatient laparoscopic cholecystectomy on May 01. The patient's intraoperative course was uncomplicated. She is currently documented to be overall net +2.1 L for the hospitalization. Preoperatively, the patient was documented to be saturating in the mid 90s on room air. The patient denies any pre-existing lung conditions. She denies any personal family history of mookie ous thromboembolic disease. She currently denies any resting or exertional shortness of breath. She has been utilizing her incentive spirometer, on average, 1 time per hour. The patient's hemoglobin has been stable at 9.4 g/dL. Chest x-ray yesterday demonstrated no acute cardiopulmonary process. Echocardiogram from November 2021 demonstrated normal LV size and function with an ejection fraction of 55%. Diastolic function was indeterminate. The RV was moderately dilated with moderate global RV systolic dysfunction. The patient did have a positive agitated saline contrast study consistent with a right to left interatrial shunt consistent with small PFO versus ASD. Right ventricular systolic pressure was estimated to be 37 mmHg. During my examination of the patient this morning, she was maintaining oxygen saturations in the mid 90s on room air. [facility] Medical History (Updated 05/03/22 @ 08:[address] 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 Longstanding persistent atrial fibrillation Low iron Mixed hyperlipidemia Moderate to severe pulmonary hypertension Non-rheumatic mitral regurgitation Non-rheumatic tricuspid valve insufficiency Non-smoker Non-smoker Normal echocardiogram (~06/08/20) Normal stress echocardiogram (~06/03/17) Paroxysmal atrial fibrillation Rt flank pain Secondary pulmonary hypertension Severe mitral regurgitation Shortness of breath on exertion Syncope and collapse Vertigo Wears dentures Home Medications potassium chloride 20 mEq tablet,extended release 20 meq PO DAILY supplement #90 tabs 01/13/20 [Rx Last Taken Unknown] ergocalciferol (vitamin D2) 1,000 unit tablet 1 tab PO DAILY Check with primary doctor 05/28/20 [History Last Taken Unknown] omeprazole 40 mg capsule,delayed release 40 mg PO DAILY Check with primary doctor 10/29/20 [History Last Taken 11/29/21] acetaminophen 500 mg tablet 1,000 mg PO Q6 PRN pain #1 TAB 11/01/20 [Rx Last Taken Unknown] ferrous sulfate 325 mg (65 mg iron) tablet (Iron (ferrous sulfate)) 325 mg PO BID 01/17/21 [History Last Taken Unknown] furosemide 40 mg tablet 40 mg PO DAILY #90 tabs 07/22/21 [Rx Last Taken Unknown] pravastatin 40 mg tablet 40 mg PO QHS Check with primary doctor #90 tabs 09/30/21 [Rx Last Taken Unknown] metoprolol tartrate 100 mg tablet 100 mg PO BID #180 tabs 03/24/22 [Rx Last Taken 05/01/22] isosorbide mononitrate 30 mg tablet,extended release 24 hr 30 mg PO BID 04/30/22 [History Last Taken 05/01/22] lisinopril 40 mg tablet 40 mg PO DAILY 04/30/22 [History Last Taken 05/01/22] oxycodone 5 mg tablet 5 mg PO Q4H PRN PRN Pain Score 4-10 5 days #15 tabs 05/02/22 [Rx Last Taken Unknown] Allergy/AdvReac Type Severity Reaction Status Date / Time piroxicam Allergy CAUSES Verified 05/01/22 12:26 BLEEDING ULCER adhesive tape AdvReac Rash/BLISTE Verified 05/01/22 12:26 RS Family History Mother 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 Father , from [place] at age 69 CAD (coronary artery disease) Myocardial infarction, Onset Age: 69 Brother 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 Heart disease Myocardial infarction Pacemaker Surgical History H/O: hysterectomy History of carpal tunnel release History of colectomy (~10/2020) History of knee replacement, total History of left heart catheterization (06/12/17) History of right and left heart catheterization (11/16/19) History of tonsillectomy History of transesophageal echocardiography (HANNY) (11/16/19) Hx of cataract extraction Hx of colonoscopy Social History Smoking Status: Never smoker alcohol intake: current alcohol intake frequency: holidays/special occasions only substance use type: does not use caffeine: Yes Type: carbonated beverages Number of servings: 1 what type of physical activity do you participate in: none ROS ROS Narrative 10 systems were reviewed with pertinent positives as noted in the HPI above. Physical Exam Const alert and no apparent distress General Appearance: cooperative HEENT normocephalic and head/scalp atraumatic Eyes PERRL, EOMs intact bilaterally and conjunctivae normal Neck supple General: trachea midline Chest inspection of chest normal Resp normal respiratory effort Auscultation: Negative for rales, rhonchi or wheezes Cardio regular rate and regular rhythm GI soft to palpation and non-tender Extremity no clubbing, cyanosis or edema Skin no rashes or lesions noted Neuro oriented x3, moves all extremities and no focal motor deficits Psych cooperative and affect normal Lab / Micro Data Result Diagrams: 05/03/22 12:49 05/03/22 05:55 Labs: Laboratory Results - last 24 hr 05/02/22 06:45: WBC 8.8, RBC 2.95 L, Hgb 9.4 L, Hct 29.4 L, MCV 99.7 H, MCH 31.9, MCHC 32.0, RDW Std Deviation 51.5 H, RDW Coeff of Oralia 14.4, Plt Count 168, MPV 9.5, Immature Gran % (Auto) 0.500, Neut % (Auto) 87.2 H, Lymph % (Auto) 4.7 L, Becker % (Auto) 7.6, Eos % (Auto) 0.0, Baso % (Auto) 0.0, Absolute Neuts (auto) 7.7, Absolute Lymphs (auto) 0.41 L, Nucleated RBC % 0, Differential Comment SCANNED 05/02/22 06:45: Sodium 142, Potassium 3.9, Chloride 104, Carbon Dioxide 30.0, Anion Gap 8, BUN 23 H, Creatinine 1.31 H, Estim Creat Clear Calc 40.81, Est GFR (MDRD) Af Amer 51 L, Est GFR (MDRD) Non-Af 42 L, BUN/Creatinine Ratio 17.6, Glucose 133 H, Calcium 8.7, Total Bilirubin 1.10 H, AST 64 H, ALT 26, Alkaline Phosphatase 67, Total Protein 6.2 L, Albumin 3.3, Globulin 2.9, Albumin/Globulin Ratio 1.1 05/02/22 12:54: Hgb 9.4 L, Hct 32.2 L Radiology Impression Chest X-Ray 05/02/22 15:55 IMPRESSION: 1. Stable cardiomegaly without acute pulmonary disease. No major interval change. Electronically Signed: Martín Cazares DO at 16:10 EST Reading Location ID and State: [facility] / [place] Tel [phone], Service support , Charges/Coding Visit Charges Inpatient E&M: 33523 Init Hosp L3
[2022-05-03 06:50] LABS: Absolute Lymphocyte Count 0.87 X10^3/uL (0.83-4.51); Absolute Neutrophil Count 5.1 X10^3/uL (2.0-7.7); Eosinophil# 0.03 X10^3/uL; Eosinophils% 0.4 % (0-5); Hematocrit 26.3 % (37-47); Hemoglobin 8.1 g/dL (12.0-15.0); Lymphocyte # 0.87 X10^3/ul (0.83-4.51); Lymphocyte % 12.8 % (19-41); Mean Corp Hgb Conc 30.8 g/dL (32-36); Mean Corpuscular Hgb 31.3 pg (27.0-32.0); Mean Corpuscular Volume 101.5 fL (81-99); Mean Platelet Vol. 9.6 fl (6.2-12.0); Monocyte# 0.76 X10^3/uL; Monocyte% 11.1 % (0-10); NRBC Flagged by Analyzer 0 % (0-5); Neutrophil # 5.13 X10^3/uL (2.7-7.7); Neutrophil % 75.3 % (47-70); Platelet Count 150 K/mm3 (150-450); RBC Distribution Width CV 14.2 % (11.6-14.6); RBC Distribution Width SD 52.9 fl (35.1-43.9); Red Blood Count 2.59 M/mm3 (4.2-5.4); White Blood Count 6.8 K/mm3 (4.4-11.0)
[2022-05-03 07:17] LABS: BNP,B-Type NATRIURETIC PEPTIDE 528.3 pg/mL (0-100)
[2022-05-03 07:24] LABS: ALB/GLOB Ratio 1.2 RATIO (0.9-2.4); AST(SGOT) 48 U/L (15-37); Alanine Aminotransfer ALT/SGPT 22 U/L (13-56); Albumin, Serum 3.1 g/dL (3.2-5.0); Alkaline Phosphatase 62 U/L (45-117); Anion Gap 6 (5-15); BUN 28 mg/dL (7-18); BUN/Creat Ratio 21.2 RATIO (10-20); Calcium,Total 8.4 mg/dL (8.5-10.1); Chloride 104 mmol/L (98-107); Creatinine, Serum 1.32 mg/dL (0.55-1.02); EST Glomerular Filtration Rate 42 mL/min (>60); Est Glom Filt Rate - Afr Amer 50 mL/min (>60); Globulin 2.6 g/dL (2.2-4.2); Glucose 118 mg/dL (74-106); Potassium 3.5 mmol/L (3.5-5.1); Protein, Total 5.7 g/dL (6.4-8.2); Sodium Level 141 mmol/L (136-145)
--- NOTE | 2022-05-03 08:45 | PN.SURG_ITS ---
Subjective Subjective Patient was hypoxic yesterday so she was kept overnight. She reports her pain is about the same as yesterday. She denies any nausea or vomiting. Objective Data Objective Data Vital Signs: Vital Signs Temp Pulse Resp BP Pulse Ox O2 Del Method O2 Flow Rate 98.4 F 103 H 18 131/92 H 92 Room Air 2 05/03/22 08:20 05/03/22 08:20 05/03/22 08:20 05/03/22 08:20 05/03/22 08:20 05/03/22 08:20 05/03/22 07:33 FiO2 100 05/01/22 16:45 Oxygen Flow Rate (L/min) 2 Oxygen Delivery Method Room Air Weight: 156 lb Body Mass Index (BMI) 33.7 Intake & Output: Intake and Output for Last 24 Hours 05/01/22 05/02/22 05/03/22 23:59 23:59 23:59 Intake Total 195 / 195 1120 / 1360 1418 / 1418 Output Total 425 / 425 Balance 195 / 195 695 / 935 1418 / 1418 Lab / Micro Data Result Diagrams: 05/03/22 05:55 05/03/22 05:55 Labs: Laboratory Results - last 24 hr 05/02/22 06:45: Differential Comment SCANNED 05/02/22 12:54: Hgb 9.4 L, Hct 32.2 L 05/03/22 05:55: WBC 6.8, RBC 2.59 L, Hgb 8.1 L, Hct 26.3 L, MCV 101.5 H, MCH 31.3, MCHC 30.8 L, RDW Std Deviation 52.9 H, RDW Coeff of Oralia 14.2, Plt Count 150, MPV 9.6, Immature Gran % (Auto) 0.400, Neut % (Auto) 75.3 H, Lymph % (Auto) 12.8 L, [place] % (Auto) 11.1 H, Eos % (Auto) 0.4, Baso % (Auto) 0.0, Absolute Neuts (auto) 5.1, Absolute Lymphs (auto) 0.87, Nucleated RBC % 0 05/03/22 05:55: Sodium 141, Potassium 3.5, Chloride 104, Carbon Dioxide 31.0, Anion Gap 6, BUN 28 H, Creatinine 1.32 H, Estim Creat Clear Calc 40.50, Est GFR (MDRD) Af Amer 50 L, Est GFR (MDRD) Non-Af 42 L, BUN/Creatinine Ratio 21.2 H, Glucose 118 H, Calcium 8.4 L, Total Bilirubin 0.90, AST 48 H, ALT 22, Alkaline Phosphatase 62, Total Protein 5.7 L, Albumin 3.1 L, Globulin 2.6, Albumin/Globulin Ratio 1.2 05/03/22 05:55: B-Natriuretic Peptide 528.3 H Radiography Diagnostic Testing: Radiology Impression Chest X-Ray 05/02/22 15:55 IMPRESSION: 1. Stable cardiomegaly without acute pulmonary disease. No major interval change. Electronically Signed: Martín CazaresDO at 16:10 EST Reading Location ID and State: [facility] / [place] Tel [phone], Service support , Physical Exam Const oriented x3 Resp normal respiratory effort GI soft to palpation Assessment & Plan Assessment/Plan (1) Acute blood loss anemia: (2) Cholecystitis, chronic: PLAN: Plan The patient was kept overnight because she was hypoxic yesterday. I had pulmonary see her today and I ordered a chest x-ray. Chest x-ray was normal. Pulmonary looked at her records and found that she does have a cardiac abnormality and may be shunting causing her hypoxia. She is not short of breath or dizzy. I will give her an extra 20 mg of IV Lasix in addition to her oral Lasix she is already on and I will stop her IV fluids. Her hemoglobin also further dropped to 8 from 9 but this may be delusional or from ongoing bleeding. She is not complaining of any increasing abdominal pain and her abdomen is soft with no guarding. I will recheck hemoglobin at noon and if it is stable I will possibly discharge her home. If hypoxia worsens or her hemoglobin drops I will order CT scan. Cam Noyola MD Pager: [facility] [address] [place], [place] [address], [address] [place] [address] Office:
[2022-05-03] MEDS: Potassium Chloride Oral Tablet 20 MEQ PO (09:48)
[2022-05-03] MEDS: Metoprolol Tartrate 100 MG Tablet PO (09:48)
[2022-05-03] MEDS: Isosorbide Mononitrate 30 MG Tablet PO (09:49)
[2022-05-03] MEDS: Furosemide 20 MG/2 ML VIAL IV (09:49)
[2022-05-03] MEDS: Lisinopril 40 MG Tablet PO (09:49)
[2022-05-03] MEDS: Pantoprazole Sodium 40 MG Tablet PO (09:49)
[2022-05-03] MEDS: Furosemide 40 MG Tablet PO (09:49)
[2022-05-03 13:02] LABS: Hematocrit 28.2 % (37-47); Hemoglobin 8.4 g/dL (12.0-15.0)
--- NOTE | 2022-05-03 14:15 | CASEMGMT ---
Addendum entered by Godfrey Mayorga 05/03/22 16:55: Home O2 testing was completed prior to discharge. Pt did not qualify for home O2 Original Note: RN?CM?COMPOUND MIXER?CM?to room to meet with patient for initial transition planning/care coordination?assessment.?RN?CM?introduced self and role at [facility].? Pt voices understanding and consents to?assessment?at this time.? Pt sitting in recliner chair in no distress at this time.? Pt initially A/O and answered all questions appropriately, but then at the end of the assessment she stated, I'm going to go down to room 311. RN CM reoriented her that she is already in 311. She stated, Oh that's right. I'm not usually this scatter-brained. I think it's from the medication from surgery. Per Baylee HOBSON, pt has had intermittent confused statements like this throughout the day and she reports Dr Noyola was aware of this this AM and that she will notify him this afternoon as well. Care providers, pharmacy, and demographics verified/updated at this time. PCP: Dr Monaco Specialists:Dr Noyola-surgeon, Dr Pierce-cardiology, Dr Marrero-oncology, Neurologist @ [facility] Karen--pt states Dr Montez (pt thinks this is the spelling but is not sure). Preferred Pharmacy: [facility] Insurance:[facility], [facility] Prescription Benefit:?Yes Living Will/HPOA:?Pt does not currently have LW/HCPOA. LNOK: 2 sons, Naeem and Memo Living Arrangements: Lives alone in one-story home w/3 steps to enter. She states she is independent and works full-time @ [employer]. Pt states she will be going home w/her friend, Ilene Carver, (PH: [phone]) and plans to stay w/her for about a week. She states there are 2-3 steps to enter Ilene's home. She states she packed a bag of her belonging to stay @ Ilene's prior to surgery that is already @ Ilene's home. Transportation:?Pt states drives self and states no transportation concerns at this time.?Ilene will take her home @ d/c DME: States has the following DME:?pulse ox, BP machine ?Pt states no need for further DME at this time.? HHC/SNF: No hx of SNF. Has had HHC in the past after knee surgery. Pt wishes to discharge to her friend's home and states has no concerns with going home at time of discharge.?? PLAN:??Discharge to friend's home Agnes SANCHEZN?RN?CM
== END 2022-05-03 16:12 | disposition home or self-care (01) | DRG 988 ==
LOC: SDC 16:05 → MS3 16:05
PROVIDERS: Anesthesiology; Internal Medicine Critical Care Medicine; Admitting Provider Surgery; PCP Family Medicine Geriatric Medicine; Visit Provider Surgery
PROC: 0FT44ZZ Resection of Gallbladder, Percutaneous Endoscopic Approach (ICD-10-PCS; CPT 47610; principal; 2022-05-01 13:10)
DX: R09.02 Hypoxemia (principal); D62 Acute posthemorrhagic anemia; K81.1 Chronic cholecystitis; E78.2 Mixed hyperlipidemia; I10 Essential (primary) hypertension; I25.10 Atherosclerotic heart disease of native coronary artery without angina pectoris
CPT/HCPCS: 36415; 71046; 76705; 80053; 83880; 85014; 85018; 85025; 85610; 85730; 86850; 86900; 86901; 88304; 93005; 94668; 94762; 99252; J7030; J7120; G0463; J1940; J2405

== ENCOUNTER 2022-05-12 20:28 | Inpatient (IN) | payer OTHER, MEDICARE, SELFPAY ==
--- NOTE | 2022-05-12 | RAD_ITS ---
STUDY: X-RAY CHEST REASON FOR EXAM: Female, 76 years old. CAD TECHNIQUE: Single AP portable view of the chest. COMPARISON: May 02, 2022, June 29, 2016 FINDINGS: The lungs are clear and expanded. There is no demonstrated pleural abnormality. There is mild to moderate cardiac enlargement. There is a prominent appearance of the bilateral derek and paramediastinal soft tissues. There are calcified mediastinal lymph nodes. There is a prominent appearance of the pulmonary arteries. There is atherosclerotic tortuosity of the aortic arch and descending thoracic aorta. There are diffuse degenerative changes of the visualized thoracic spine. There are Visualize coronary calcifications. There is visualized kyphoplasty material within the thoracic spine at the level of approximately T11. There is chronic appearing loss of height at the level of T7. There is partially visualized chronic loss of height at the level of L2. Normal visualized ribs, clavicles, and shoulders. There is no demonstrated abnormality of the visualized soft tissue structures of the upper abdomen. RAD/Chest 1 View (Portable) IMPRESSION: Mild to moderate cardiomegaly. There are visualized coronary calcifications. Evidence for prior granulomatous disease. Pulmonary arterial enlargement could represent pulmonary arterial hypertension. Multilevel prior compression injuries of the thoracic spine as detailed above. Electronically Signed: Sue Martin MD at 22:20 EST Reading Location ID and State: [facility] / [place] Tel , Service support ,
[2022-05-12 20:54] VITALS: BP 143/103; PULSE 119; RESP 18; TEMP 36.4; O2SAT 97; BMI 38.1
--- NOTE | 2022-05-12 21:02 | EDS_ITS ---
HPI HPI - Fall History of Present Illness Chief Complaint: Fall Narrative Narrative: 76-year-old female past medical history of atrial fibrillation and coronary artery disease presents with right hip pain status post fall. She states that she was working at [employer] although she works for a different company. She was trying to change a paper towel roll that was too high to reach. She went to stand on one of the larger paper towel rolls, and it slipped out from underneath her. She fell onto her right side and heard a snap. She now has pain when she moves her right leg. She was unable to get up and ambulate. She denies hitting her head or loss of consciousness. No neck pain, no other injury. She does not take blood thinners because she states that while she was on warfarin for her atrial fibrillation she had spontaneous intracranial hemorrhages. [facility] Medical History Abdominal pain Adenocarcinoma (~10/2020) Adenocarcinoma of cecum Anemia Anxiety Arthritis Atrial fibrillation Atrial fibrillation with RVR Back pain bilateral feet surgery Bradycardia CAD (coronary artery disease) Cancer Cardiology follow-up encounter Cerumen impaction Cholecystitis, chronic Complicated UTI (urinary tract infection) Costochondritis Depression Difficult intravenous access Easy bruising Essential hypertension GERD (gastroesophageal reflux disease) High cholesterol History of echocardiogram History of edema History of stress test History of ulceration 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 Longstanding persistent atrial fibrillation Low iron Mixed hyperlipidemia Moderate to severe pulmonary hypertension Non-rheumatic mitral regurgitation Non-rheumatic tricuspid valve insufficiency Non-smoker Non-smoker Normal echocardiogram (~06/08/20) Normal stress echocardiogram (~06/03/17) Paroxysmal atrial fibrillation Rt flank pain Secondary pulmonary hypertension Severe mitral regurgitation Shortness of breath on exertion Syncope and collapse Vertigo Wears dentures Home Medications potassium chloride 20 mEq tablet,extended release 20 meq PO DAILY supplement #90 tabs 01/13/20 [Rx Last Taken Unknown] ergocalciferol (vitamin D2) 1,000 unit tablet 1 tab PO DAILY Check with primary doctor 05/28/20 [History Last Taken Unknown] omeprazole 40 mg capsule,delayed release 40 mg PO DAILY Check with primary doctor 10/29/20 [History Last Taken 11/29/21] acetaminophen 500 mg tablet 1,000 mg PO Q6 PRN pain #1 TAB 11/01/20 [Rx Last Taken Unknown] ferrous sulfate 325 mg (65 mg iron) tablet (Iron (ferrous sulfate)) 325 mg PO BID 01/17/21 [History Last Taken Unknown] furosemide 40 mg tablet 40 mg PO DAILY #90 tabs 07/22/21 [Rx Last Taken Unknown] pravastatin 40 mg tablet 40 mg PO QHS Check with primary doctor #90 tabs 09/30/21 [Rx Last Taken Unknown] metoprolol tartrate 100 mg tablet 100 mg PO BID #180 tabs 03/24/22 [Rx Last Taken 05/01/22] isosorbide mononitrate 30 mg tablet,extended release 24 hr 30 mg PO BID 04/30/22 [History Last Taken 05/01/22] lisinopril 40 mg tablet 40 mg PO DAILY 04/30/22 [History Last Taken 05/01/22] oxycodone 5 mg tablet 5 mg PO Q4H PRN PRN Pain Score 4-10 5 days #15 tabs 05/02/22 [Rx Last Taken Unknown] Allergy/AdvReac Type Severity Reaction Status Date / Time piroxicam Allergy CAUSES Verified 05/12/22 21:00 BLEEDING ULCER adhesive tape AdvReac Rash/BLISTE Verified 05/12/22 21:00 RS Family History Mother 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 Father , from [place] at age 69 CAD (coronary artery disease) Myocardial infarction, Onset Age: 69 Brother 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 Heart disease Myocardial infarction Pacemaker Surgical History H/O: hysterectomy History of carpal tunnel release History of colectomy (~10/2020) History of knee replacement, total History of left heart catheterization (06/12/17) History of right and left heart catheterization (11/16/19) History of tonsillectomy History of transesophageal echocardiography (HANNY) (11/16/19) Hx of cataract extraction Hx of colonoscopy Social History Smoking Status: Never smoker alcohol intake: current alcohol intake frequency: holidays/special occasions only substance use type: does not use caffeine: Yes Type: carbonated beverages Number of servings: 1 what type of physical activity do you participate in: none ROS ROS ED ROS Narrative Constitutional: No fever, no chills. HEENT: No sore throat. No neck pain. No loss of vision. No rhinorrhea. Cardiovascular: No chest pain. No palpitations. No pedal edema. Respiratory: No cough, no shortness of breath. Abdominal: No abdominal pain. No nausea. No vomiting. Genitourinary: No dysuria. No hematuria. Musculoskeletal: No myalgias. Right hip pain. Neurologic: No headaches. No dizziness. No lightheadedness. Skin: No rash. No change in color. Psychiatric: No depression. No anxiety. EXAM Physical Exam Narrative Exam Narrative: Afebrile. Vital signs noted. HEENT: Normocephalic. Atraumatic. PERRL, EOMI. Neck soft and supple. No point tenderness or step off. Cardiovascular: Regular rate and rhythm. No murmurs, rubs, or gallops appreciated. Respiratory: No tachypnea. Lungs clear to auscultation bilaterally. Gastrointestinal: Abdomen soft, nontender, with normoactive bowel sounds. No rebound or guarding. Neurological: Awake. Alert. Nonfocal, nonlateralizing. Skin: No rash. Normal color. No pallor. Musculoskeletal: No pedal edema. Diffuse tenderness to palpation right hip. Pelvis stable. Right lower extremity slightly shortened and externally rotated. Positive pain with logrolling of right femur. Neurovascularly intact distally with palpable dorsalis pedis pulse. Const Vital Signs: 05/12/22 20:54 05/12/22 21:01 Temperature 97.6 F L Temperature Source Temporal Pulse Rate 119 H Respiratory Rate 18 Respiratory Effort Normal Non-Labored Blood Pressure 143/103 H Blood Pressure Mean 116 Pulse Ox 97 Oxygen Delivery Method Room Air MDM MDM MDM Narrative Medical decision making narrative: Suspicion is high for either pelvic fracture versus right hip fracture/proximal femur fracture. She was administered morphine 4 mg intravenously for analgesia. Saline lock was placed. X-rays of the pelvis and right hip were obtained and interpreted by myself. My interpretation shows an intertrochanteric right hip fracture. I reviewed the radiology report and they confirmed. Chest x-ray was also obtained, and on my interpretation I see no evidence of pneumothorax or pneumonia. Laboratory work will be obtained in the form of CBC, BMP, and coagulation studies along with type and screen for preoperative, and EKG. I discussed patient with Dr. Canas, with orthopedics, who would like the patient n.p.o. after midnight for surgery tomorrow. Her labs are still pending, but these were obtained for the hospitalist to help in medical clearance. The patient was discussed with Dr. Patel for admission. Patient is in stable condition. Radiography Diagnostic Testing: Clinical Impression(s) from Imaging Studies Chest X-Ray 05/12/22 00:00 IMPRESSION: Mild to moderate cardiomegaly. There are visualized coronary calcifications. Evidence for prior granulomatous disease. Pulmonary arterial enlargement could represent pulmonary arterial hypertension. Multilevel prior compression injuries of the thoracic spine as detailed above. Electronically Signed: Sue Martin MD at 22:20 EST , Hip/Pelvis X-Ray 05/12/22 21:50 IMPRESSION: Acute, intratrochanteric fracture of the right femur. Postoperative change right lower quadrant. Electronically Signed: Sue Martin MD at 22:22 EST , Discharge Plan Dx/Rx/DC Orders Clinical Impression: Fall, Closed fracture of right hip, History of atrial fibrillation Disposition Disposition: Acute Care [facility]
[2022-05-12] MEDS: Morphine 4 MG/ML Syringe IV (21:44)
--- NOTE | 2022-05-12 21:50 | RAD_ITS ---
STUDY: X-RAY - PELVIS AND RIGHT HIP REASON FOR EXAM: Female, 76 years old. Pain TECHNIQUE: 3 views of the pelvis and hip. COMPARISON: April 16, 2022 CT scan pelvis FINDINGS: There is a non-specific bowel gas pattern. Normal bilateral iliac wings, sacroiliac joints and visualized sacrum. Normal bilateral superior and inferior pubic rami. Normal pubic symphysis. Normal bilateral ischial tuberosities. There is an acute intertrochanteric fracture of the right femur. There is slight proximal migration. The left tip appears to be intact. There is degenerative change in the lower lumbar spine. There is postoperative change in the right lower quadrant. RAD/HIP, UNI W/ Pelvis 2-3 Views IMPRESSION: Acute, intratrochanteric fracture of the right femur. Postoperative change right lower quadrant. Electronically Signed: Sue Martni MD at 22:22 EST ,
--- NOTE | 2022-05-12 22:00 | EKG12_ITS ---
Test Reason : FALL Blood Pressure : / mmHG Vent. Rate : 116 BPM Atrial Rate : 000 BPM P-R Int : 000 ms QRS Dur : 096 ms QT Int : 342 ms P-R-T Axes : 000 088 -03 degrees QTc Int : 475 ms Atrial fibrillation with rapid ventricular response Incomplete right bundle branch block Nonspecific ST abnormality Abnormal QRS-T angle, consider primary T wave abnormality Abnormal ECG Confirmed by CECIL JULES, MARGI ([id number]), assignment editor LLOYD MENDES ([id number]) on 05/15/2022 11:30:18 AM Referred By: Confirmed By:MARGI JACOB MD
--- NOTE | 2022-05-12 22:24 | PCM.HP.STD ---
HPI - General General Date of Admission: 05/12/22 Date of Service: 05/12/22 Chief Complaint: Fall HPI Narrative MARGARETTE WISE, is a 76 F with a significant history of persistent A-fib; mitral valve prolapse; hypertension and who had a cholecystectomy about a week before presentation presenting with a fall. Patient was changing a paper towel at work. The paper towel was high. Patient fell and landed on her right side. Following the fall she developed pain at her right hip that increases with movement. Patient is unable to ambulate secondary to pain from her right hip. Emergency department doctor discussed the case with Dr. Canas orthopedic surgeon who will see patient in consult. [facility] Medical History Abdominal pain Adenocarcinoma (~10/2020) Adenocarcinoma of cecum Anemia Anxiety Arthritis Atrial fibrillation Atrial fibrillation with RVR Back pain bilateral feet surgery Bradycardia CAD (coronary artery disease) Cancer Cardiology follow-up encounter Cerumen impaction Cholecystitis, chronic Complicated UTI (urinary tract infection) Costochondritis Depression Difficult intravenous access Easy bruising Essential hypertension GERD (gastroesophageal reflux disease) High cholesterol History of echocardiogram History of edema History of stress test History of ulceration 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 Longstanding persistent atrial fibrillation Low iron Mixed hyperlipidemia Moderate to severe pulmonary hypertension Non-rheumatic mitral regurgitation Non-rheumatic tricuspid valve insufficiency Non-smoker Non-smoker Normal echocardiogram (~06/08/20) Normal stress echocardiogram (~06/03/17) Paroxysmal atrial fibrillation Rt flank pain Secondary pulmonary hypertension Severe mitral regurgitation Shortness of breath on exertion Syncope and collapse Vertigo Wears dentures Home Medications potassium chloride 20 mEq tablet,extended release 20 meq PO DAILY supplement #90 tabs 01/13/20 [Rx Last Taken Unknown] ergocalciferol (vitamin D2) 1,000 unit tablet 1 tab PO DAILY Check with primary doctor 05/28/20 [History Last Taken Unknown] omeprazole 40 mg capsule,delayed release 40 mg PO DAILY Check with primary doctor 10/29/20 [History Last Taken 11/29/21] acetaminophen 500 mg tablet 1,000 mg PO Q6 PRN pain #1 TAB 11/01/20 [Rx Last Taken Unknown] ferrous sulfate 325 mg (65 mg iron) tablet (Iron (ferrous sulfate)) 325 mg PO BID 01/17/21 [History Last Taken Unknown] furosemide 40 mg tablet 40 mg PO DAILY #90 tabs 07/22/21 [Rx Last Taken Unknown] pravastatin 40 mg tablet 40 mg PO QHS Check with primary doctor #90 tabs 09/30/21 [Rx Last Taken Unknown] metoprolol tartrate 100 mg tablet 100 mg PO BID #180 tabs 03/24/22 [Rx Last Taken 05/01/22] isosorbide mononitrate 30 mg tablet,extended release 24 hr 30 mg PO BID 04/30/22 [History Last Taken 05/01/22] lisinopril 40 mg tablet 40 mg PO DAILY 04/30/22 [History Last Taken 05/01/22] oxycodone 5 mg tablet 5 mg PO Q4H PRN PRN Pain Score 4-10 5 days #15 tabs 05/02/22 [Rx Last Taken Unknown] Allergy/AdvReac Type Severity Reaction Status Date / Time piroxicam Allergy CAUSES Verified 05/12/22 21:00 BLEEDING ULCER adhesive tape AdvReac Rash/BLISTE Verified 05/12/22 21:00 RS Family History Mother 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 Father , from [place] at age 69 CAD (coronary artery disease) Myocardial infarction, Onset Age: 69 Brother 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 Heart disease Myocardial infarction Pacemaker Surgical History H/O: hysterectomy History of carpal tunnel release History of colectomy (~10/2020) History of knee replacement, total History of left heart catheterization (06/12/17) History of right and left heart catheterization (11/16/19) History of tonsillectomy History of transesophageal echocardiography (HANNY) (11/16/19) Hx of cataract extraction Hx of colonoscopy Social History Smoking Status: Never smoker alcohol intake: current alcohol intake frequency: holidays/special occasions only substance use type: does not use caffeine: Yes Type: carbonated beverages Number of servings: 1 what type of physical activity do you participate in: none ROS ROS Narrative Pertinent positives and pertinent negatives as noted in HPI. All other systems were reviewed and are negative Vital Signs Vital Signs Vital Signs: 05/12/22 20:54 05/12/22 21:01 Temperature 97.6 F L Temperature Source Temporal Pulse Rate 119 H Respiratory Rate 18 Respiratory Effort Normal Non-Labored Blood Pressure 143/103 H Blood Pressure Mean 116 Pulse Ox 97 Oxygen Delivery Method Room Air Weight Weight: 79.9 kg Body Mass Index (BMI) 38.1 Physical Exam Narrative Physical exam: General: Well-nourished, well-developed. Head: Normocephalic, atraumatic, no tenderness Eyes: Vision is grossly intact. EOMI ENT, no trauma, moist mucous membranes, no rhinorrhea Neck: Nontender, No thyromegaly. CVS: Tachycardia. Irregularly irregular rate and rhythm. S1-S2 present. No murmur, gallop or rub. Respiratory : clear to auscultation bilaterally, chest wall nontender, no wheezing Abdomen: Soft, nontender, nondistended, normal bowel sounds, no masses : Deferred Back: Nontender, no CVA tenderness Extremities: Bilateral hip is not tender. No edema of bilateral lower extremities. Skin: Normal color, no trauma, abrasions Neuro: Alert, oriented, cranial nerves II through XII grossly intact. Psychiatry: Normal mood. Normal affect. Not depressed. Not anxious. Results Lab / Micro Data Result Diagrams: 05/12/22 22:17 05/12/22 22:17 Radiology Impression Chest X-Ray 05/12/22 00:00 IMPRESSION: Mild to moderate cardiomegaly. There are visualized coronary calcifications. Evidence for prior granulomatous disease. Pulmonary arterial enlargement could represent pulmonary arterial hypertension. Multilevel prior compression injuries of the thoracic spine as detailed above. Electronically Signed: Sue Martin MD at 22:20 EST , Hip/Pelvis X-Ray 05/12/22 21:50 IMPRESSION: Acute, intratrochanteric fracture of the right femur. Postoperative change right lower quadrant. Electronically Signed: Sue Martin MD at 22:22 EST , Assessment & Plan Assessment/Plan (1) Closed fracture of right hip: (2) History of atrial fibrillation: (3) Atrial fibrillation with RVR: PLAN: Plan Acute intratrochanteric fracture of the right femur. Hip/pelvis x-ray, impression radiologist: Acute intratrochanteric fracture of the right femur. X-ray was visualized and independently interpreted and I agree with the interpretation Emergent department doctor discussed the case with Dr. Canas Inpatient consult for orthopedic surgery. Morphine IV as needed ordered. Tylenol as needed ordered. Bowel protocol and antiemetics IV ordered. Keep n.p.o. Check vitamin D level. Preoperative showed A-fib RVR. ACS NSQIP surgical risk calculator shows below average surgical risk. Patient's persistent A-fib we will classify patient as above surgical risk for cardiopulmonary complications. We will admit the patient to the progressive care unit. CBC showed flat 11,700. Likely reactive. Trend. Atrial fibrillation with rapid ventricular response EKG in the emergency department showed A-fib with RVR with ventricular rate of 116. Metoprolol IV given emergency department. Will admit patient to progressive care unit. Will place patient on telemetry. After patient is not a candidate for anticoagulation since previously while on warfarin she had intracranial bleed. IV metoprolol ordered emergency department. IV metoprolol as needed ordered. Resume home metoprolol 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 Blood pressure is not within goal Metoprolol and furosemide continued. Trend blood pressure and adjust blood pressure medications. Chronic anemia Stable Trend CBC. DVT prophylaxis: SCDs ordered. Charges/Coding Visit Charges Inpatient E&M: 75831 Init Hosp L3
[2022-05-12 22:39] LABS: Absolute Lymphocyte Count 0.83 X10^3/uL (0.83-4.51); Absolute Neutrophil Count 9.6 X10^3/uL (2.0-7.7); Basophil# 0.04 X10^3/uL; Basophil% 0.3 % (0-1); Eosinophil# 0.11 X10^3/uL; Eosinophils% 0.9 % (0-5); Hematocrit 31.4 % (37-47); Hemoglobin 9.7 g/dL (12.0-15.0); Lymphocyte # 0.83 X10^3/ul (0.83-4.51); Lymphocyte % 7.1 % (19-41); Mean Corp Hgb Conc 30.9 g/dL (32-36); Mean Corpuscular Volume 97.2 fL (81-99); Mean Platelet Vol. 9.7 fl (6.2-12.0); Monocyte# 1.03 X10^3/uL; Monocyte% 8.8 % (0-10); NRBC Flagged by Analyzer 0 % (0-5); Neutrophil % 82.1 % (47-70); Platelet Count 228 K/mm3 (150-450); RBC Distribution Width CV 14.3 % (11.6-14.6); RBC Distribution Width SD 50.5 fl (35.1-43.9); Red Blood Count 3.23 M/mm3 (4.2-5.4); White Blood Count 11.7 K/mm3 (4.4-11.0)
[2022-05-12 22:56] LABS: Anion Gap 9 (5-15); BUN 8 mg/dL (7-18); BUN/Creat Ratio 9.9 RATIO (10-20); Calcium,Total 8.7 mg/dL (8.5-10.1); Chloride 104 mmol/L (98-107); EST Glomerular Filtration Rate 74 mL/min (>60); Est Glom Filt Rate - Afr Amer 89 mL/min (>60); Estimated Creatinine Clearance 75.46 ml/min; Glucose 122 mg/dL (74-106); Potassium 3.1 mmol/L (3.5-5.1); Sodium Level 140 mmol/L (136-145)
[2022-05-12 23:00] LABS: International Normalized Ratio 1.3; Partial Thromboplast Time 31.4 Seconds (24.1-36.2); Prothrombin Time (Protime)PT. 15.9 SECONDS (11.7-14.9)
[2022-05-12 23:45] VITALS: BP 130/84; PULSE 98; RESP 18; TEMP 36.7; O2SAT 95
[2022-05-12] MEDS: Metoprolol Tartrate 5 MG/5 ML Vial IV (23:47)
[2022-05-13] VITALS (9 sets, daily range): BP systolic 100–135; BP diastolic 63–91; PULSE 96–111; RESP 16–22; TEMP 36.6–37.2; O2SAT 93–100; BMI 34.2
[2022-05-13] MEDS: Morphine 4 MG/ML Syringe IV ×4 (00:34→22:25)
[2022-05-13 01:27] LABS: ALB/GLOB Ratio 1.2 RATIO (0.9-2.4); AST(SGOT) 33 U/L (15-37); Alanine Aminotransfer ALT/SGPT 16 U/L (13-56); Albumin, Serum 3.3 g/dL (3.2-5.0); Alkaline Phosphatase 70 U/L (45-117); Anion Gap 8 (5-15); BUN 8 mg/dL (7-18); BUN/Creat Ratio 10.7 RATIO (10-20); Calcium,Total 8.7 mg/dL (8.5-10.1); Chloride 103 mmol/L (98-107); Creatinine, Serum 0.74 mg/dL (0.55-1.02); EST Glomerular Filtration Rate 80 mL/min (>60); Est Glom Filt Rate - Afr Amer 97 mL/min (>60); Estimated Creatinine Clearance 54.32 ml/min; Globulin 2.8 g/dL (2.2-4.2); Glucose 111 mg/dL (74-106); Potassium 3.2 mmol/L (3.5-5.1); Protein, Total 6.1 g/dL (6.4-8.2); Sodium Level 141 mmol/L (136-145)
[2022-05-13 01:29] LABS: Vitamin D,25 Hydroxy 38.4 ng/mL
[2022-05-13] MEDS: Metoprolol Tartrate 100 MG Tablet PO ×3 (01:57→21:24)
--- NOTE | 2022-05-13 07:38 | PN.HOSP_ITS ---
Subjective Subjective Patient is a 76-year-old lady who slipped and fell. Imaging studies obtained on admission demonstrated acute intertrochanteric fracture of the right femur. Patient was also found to be in A-fib with RVR on admission admitted to a monitored bed with consultation placed orthopedic surgery Objective Data Objective Data Vital Signs: Vital Signs Temp Pulse Resp BP Pulse Ox O2 Del Method 97.9 F 103 H 22 H 116/71 96 Room Air 05/13/22 00:16 05/13/22 01:57 05/13/22 00:16 05/13/22 01:57 05/13/22 05:15 05/13/22 05:15 Oxygen Delivery Method Room Air Weight: 71.894 kg Body Mass Index (BMI) 34.2 Intake & Output: Intake and Output for Last 24 Hours 05/11/22 05/12/22 05/13/22 23:59 23:59 23:59 Intake Total 0 / 0 Output Total 0 / 0 Balance 0 / 0 Lab / Micro Data Result Diagrams: 05/13/22 08:18 05/13/22 08:18 Labs: Laboratory Results - last 24 hr 05/12/22 22:17: Blood Type O POSITIVE, Antibody Screen NEGATIVE 05/12/22 22:17: WBC 11.7 H, RBC 3.23 L, Hgb 9.7 L, Hct 31.4 L, MCV 97.2, MCH 30.0, MCHC 30.9 L, RDW Std Deviation 50.5 H, RDW Coeff of Oralia 14.3, Plt Count 228, MPV 9.7, Immature Gran % (Auto) 0.800, Neut % (Auto) 82.1 H, Lymph % (Auto) 7.1 L, [place] % (Auto) 8.8, Eos % (Auto) 0.9, Baso % (Auto) 0.3, Absolute Neuts (auto) 9.6 H, Absolute Lymphs (auto) 0.83, Nucleated RBC % 0 05/12/22 22:17: Sodium 140, Potassium 3.1 L, Chloride 104, Carbon Dioxide 27.0, Anion Gap 9, BUN 8, Creatinine 0.80, Estim Creat Clear Calc 75.46, Est GFR (MDRD) Af Amer 89, Est GFR (MDRD) Non-Af 74, BUN/Creatinine Ratio 9.9 L, Glucose 122 H, Calcium 8.7 02/06/23 22:17: PT 15.9 H, INR 1.3, APTT 31.4 05/13/22 01:00: Sodium 141, Potassium 3.2 L, Chloride 103, Carbon Dioxide 30.0, Anion Gap 8, BUN 8, Creatinine 0.74, Estim Creat Clear Calc 54.32, Est GFR (MDRD) Af Amer 97, Est GFR (MDRD) Non-Af 80, BUN/Creatinine Ratio 10.7, Glucose 111 H, Calcium 8.7, Total Bilirubin 1.30 H, AST 33, ALT 16, Alkaline Phosphatase 70, Total Protein 6.1 L, Albumin 3.3, Globulin 2.8, Albumin/Globulin Ratio 1.2 05/13/22 01:00: Vitamin D 25-Hydroxy 38.4 Radiography Diagnostic Testing: Radiology Impression Chest X-Ray 05/12/22 00:00 IMPRESSION: Mild to moderate cardiomegaly. There are visualized coronary calcifications. Evidence for prior granulomatous disease. Pulmonary arterial enlargement could represent pulmonary arterial hypertension. Multilevel prior compression injuries of the thoracic spine as detailed above. Electronically Signed: Sue Martin MD at 22:20 EST , Hip/Pelvis X-Ray 05/12/22 21:50 IMPRESSION: Acute, intratrochanteric fracture of the right femur. Postoperative change right lower quadrant. Electronically Signed: Sue Martin MD at 22:22 EST , Physical Exam Narrative GENERAL: cooperative HEENT: Atraumatic; normocephalic EYES; Anicteric, Normal Conjunctiva NECK; supple, normal thyroid, RESPIRATORY: Diminished to auscultation CARDIOVASCULAR: Irregularly irregular tachycardic GI: soft, normoactive bowel sounds, : No Renal angle tenderness; EXTREMITIES: No edema, no clubbing, MUSCULOSKELETAL: no muscle wasting NEURO: Awake; no lateralizing signs. SKIN: No Rash PSYCH; Flat affect Assessment & Plan Assessment/Plan (1) Closed fracture of right hip: (2) History of atrial fibrillation: (3) Atrial fibrillation with RVR: PLAN: Plan Patient is a 76-year-old lady who slipped and fell. Imaging studies obtained on admission demonstrated acute intertrochanteric fracture of the right femur. Patient was also found to be in A-fib with RVR on admission admitted to a monitored bed with consultation placed orthopedic surgery 1. Acute intratrochanteric fracture involving the right femur ? Patient has been admitted to monitored bed managed with pain management, immobilization and consultation placed to orthopedic surgery. Case was apparently discussed with Dr. Canas by the emergency room physician. Patient perioperative risk was deemed to be below average risk however with patient developing A-fib with RVR patient was admitted to a monitored bed with plans to control rate prior to any surgical intervention 2. A-fib with RVR ? Patient did receive metoprolol for rate control. Patient apparently did develop intracranial hemorrhage was previously on warfarin 3. 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 - Blood pressure controlled, home medications continued with dose adjustment as needed 4. Anemia - Secondary to chronic disorder monitoring H&H and transfuse if patient becomes symptomatic or hemoglobin falls below 7 5. Dyslipidemia -Patient is on statin therapy, continued at home dose 6. Hypokalemia ? Corrected per protocol repeat potassium ordered for monitoring 7. DVT prophylaxis ? SCDs for now with plans to initiate chemoprophylaxis following patient surgery Time spent in the patient's overall evaluation,decision-making process, review of diagnostic data, adjustment of management, discussion with other providers, nursing nursing and ancillary staff involved in patient's care documentation, 56 Minutes Charges/Coding Visit Charges Inpatient E&M: 57134 Subs Hosp L3 Reason for Visit Reason for Visit: Diagnoses Unspecified atrial fibrillation (05/12/22) Fracture of unspecified part of neck of right femur, initial encounter for closed fracture (05/12/22) Personal history of other diseases of the circulatory system (05/12/22)
--- NOTE | 2022-05-13 07:48 | CONS.ORTHO ---
HPI Consult Data Date of Consult: 05/13/22 HPI Narrative HPI Narrative: MARGARETTE WISE, is a 76 F who presents after mechanical fall at work. She stepped on top of a paper towel roll to change a paper towel above her reaching height. She states she has done this for over a year without difficulty. She states her left foot was not completely on top of the paper towel roll causing her to fall and land on her right side. She denies any head injury or loss consciousness. Denies any antecedent right hip or groin pain. Patient is a community ambulator without assistive device. Denies fevers, chills, nausea vomiting, chest pain or shortness of breath. Patient is admitted under the service of the hospitalist last evening after I was consulted from the emergency room. Of note, patient had history of apparent spontaneous intracranial hemorrhage in May 2021 which was treated nonoperatively. She was on Coumadin at that time for chronic atrial fibrillation. She has since been stopped from any formal anticoagulation. She denies history of blood clot or stroke. [facility] Medical History Abdominal pain Adenocarcinoma (~10/2020) Adenocarcinoma of cecum Anemia Anxiety Arthritis Atrial fibrillation Atrial fibrillation with RVR Back pain bilateral feet surgery Bradycardia CAD (coronary artery disease) Cancer Cardiology follow-up encounter Cerumen impaction Cholecystitis, chronic Complicated UTI (urinary tract infection) Costochondritis Depression Difficult intravenous access Easy bruising Essential hypertension GERD (gastroesophageal reflux disease) High cholesterol History of echocardiogram History of edema History of stress test History of ulceration 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 alf current use of anticoagulant Longstanding persistent atrial fibrillation Low iron Mixed hyperlipidemia Moderate to severe pulmonary hypertension Non-rheumatic mitral regurgitation Non-rheumatic tricuspid valve insufficiency Non-smoker Non-smoker Normal echocardiogram (~06/08/20) Normal stress echocardiogram (~06/03/17) Paroxysmal atrial fibrillation Rt flank pain Secondary pulmonary hypertension Severe mitral regurgitation Shortness of breath on exertion Syncope and collapse Vertigo Wears dentures Home Medications potassium chloride 20 mEq tablet,extended release 20 meq PO DAILY supplement #90 tabs 01/13/20 [Rx Last Taken Unknown] ergocalciferol (vitamin D2) 1,000 unit tablet 1 tab PO DAILY Check with primary doctor 05/28/20 [History Last Taken Unknown] omeprazole 40 mg capsule,delayed release 40 mg PO DAILY Check with primary doctor 10/29/20 [History Last Taken 11/29/21] acetaminophen 500 mg tablet 1,000 mg PO Q6 PRN pain #1 TAB 11/01/20 [Rx Last Taken Unknown] ferrous sulfate 325 mg (65 mg iron) tablet (Iron (ferrous sulfate)) 325 mg PO BID 01/17/21 [History Last Taken Unknown] furosemide 40 mg tablet 40 mg PO DAILY #90 tabs 07/22/21 [Rx Last Taken Unknown] pravastatin 40 mg tablet 40 mg PO QHS Check with primary doctor #90 tabs 09/30/21 [Rx Last Taken Unknown] metoprolol tartrate 100 mg tablet 100 mg PO BID #180 tabs 03/24/22 [Rx Last Taken 05/01/22] isosorbide mononitrate 30 mg tablet,extended release 24 hr 30 mg PO BID 04/30/22 [History Last Taken 05/01/22] lisinopril 40 mg tablet 40 mg PO DAILY 04/30/22 [History Last Taken 05/01/22] oxycodone 5 mg tablet 5 mg PO Q4H PRN PRN Pain Score 4-10 5 days #15 tabs 05/02/22 [Rx Last Taken Unknown] Allergy/AdvReac Type Severity Reaction Status Date / Time piroxicam Allergy CAUSES Verified 05/12/22 21:00 BLEEDING ULCER adhesive tape AdvReac Rash/BLISTE Verified 05/12/22 21:00 RS Family History Mother 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 Father , from [place] at age 69 CAD (coronary artery disease) Myocardial infarction, Onset Age: 69 Brother 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 Heart disease Myocardial infarction Pacemaker Surgical History H/O: hysterectomy History of carpal tunnel release History of colectomy (~10/2020) History of knee replacement, total History of left heart catheterization (06/12/17) History of right and left heart catheterization (11/16/19) History of tonsillectomy History of transesophageal echocardiography (HANNY) (11/16/19) Hx of cataract extraction Hx of colonoscopy Social History Smoking Status: Never smoker alcohol intake: current alcohol intake frequency: holidays/special occasions only substance use type: does not use caffeine: Yes Type: carbonated beverages Number of servings: 1 what type of physical activity do you participate in: none Vital Signs Vital Signs Vital Signs: 05/12/22 20:54 05/12/22 21:01 05/12/22 23:45 Temperature 97.6 F L 98.0 F Temperature Source Temporal Temporal Pulse Rate 119 H 98 Respiratory Rate 18 18 Respiratory Effort Normal Non-Labored Blood Pressure 143/103 H 130/84 H Blood Pressure Mean 116 99 Blood Pressure Source Blood Pressure Position Blood Pressure Location Pulse Ox 97 95 Oxygen Delivery Method Room Air Room Air 05/13/22 00:16 05/13/22 00:30 05/13/22 01:57 Temperature 97.9 F Temperature Source Temporal Pulse Rate 105 H 105 H 103 H Respiratory Rate 22 H Respiratory Effort Blood Pressure 127/91 H 116/71 Blood Pressure Mean 103 Blood Pressure Source Monitor Blood Pressure Position Supine Blood Pressure Location Left Arm Pulse Ox 100 Oxygen Delivery Method Room Air 05/13/22 05:15 Temperature Temperature Source Pulse Rate Respiratory Rate Respiratory Effort Blood Pressure Blood Pressure Mean Blood Pressure Source Blood Pressure Position Blood Pressure Location Pulse Ox 96 Oxygen Delivery Method Room Air Weight Weight: 158 lb 8 oz Body Mass Index (BMI) 34.2 Physical Exam Narrative General -A&Ox3, NAD, appears stated age. Mild tachycardia, normotensive, afebrile. Respiratory -normal work of breathing, no intercostal retractions. CV -pulses irregular, brisk capillary refill ?4 limbs. Abdomen-soft, nontender, nondistended. No guarding, rigidity, rebound tenderness. Musculoskeletal/neurologic -full range of motion nontender throughout bilateral upper extremities, left lower extremity with full sensation and strength in all dermatomes and myotomes. No midline cervical tenderness. Right lower extremity-no obvious deformity. Pain with logroll of the right lower extremity. Nontender throughout the right knee femoral shaft, tibial shaft and right foot/ankle. Brisk capillary refill. Sensation intact light touch L3-S1 dermatomes. DF, PF, EHL intact. DP, PT 2+. Pelvis is stable, nontender. Skin is intact without lacerations, abrasions. No ecchymosis noted. Lab / Micro Data Result Diagrams: 05/12/22 22:17 05/13/22 01:00 Labs: Laboratory Results - last 24 hr 05/12/22 22:17: Blood Type O POSITIVE, Antibody Screen NEGATIVE 05/12/22 22:17: WBC 11.7 H, RBC 3.23 L, Hgb 9.7 L, Hct 31.4 L, MCV 97.2, MCH 30.0, MCHC 30.9 L, RDW Std Deviation 50.5 H, RDW Coeff of Oralia 14.3, Plt Count 228, MPV 9.7, Immature Gran % (Auto) 0.800, Neut % (Auto) 82.1 H, Lymph % (Auto) 7.1 L, [place] % (Auto) 8.8, Eos % (Auto) 0.9, Baso % (Auto) 0.3, Absolute Neuts (auto) 9.6 H, Absolute Lymphs (auto) 0.83, Nucleated RBC % 0 05/12/22 22:17: Sodium 140, Potassium 3.1 L, Chloride 104, Carbon Dioxide 27.0, Anion Gap 9, BUN 8, Creatinine 0.80, Estim Creat Clear Calc 75.46, Est GFR (MDRD) Af Amer 89, Est GFR (MDRD) Non-Af 74, BUN/Creatinine Ratio 9.9 L, Glucose 122 H, Calcium 8.7 05/12/22 22:17: PT 15.9 H, INR 1.3, APTT 31.4 05/13/22 01:00: Sodium 141, Potassium 3.2 L, Chloride 103, Carbon Dioxide 30.0, Anion Gap 8, BUN 8, Creatinine 0.74, Estim Creat Clear Calc 54.32, Est GFR (MDRD) Af Amer 97, Est GFR (MDRD) Non-Af 80, BUN/Creatinine Ratio 10.7, Glucose 111 H, Calcium 8.7, Total Bilirubin 1.30 H, AST 33, ALT 16, Alkaline Phosphatase 70, Total Protein 6.1 L, Albumin 3.3, Globulin 2.8, Albumin/Globulin Ratio 1.2 05/13/22 01:00: Vitamin D 25-Hydroxy 38.4 Radiology Impression Chest X-Ray 05/12/22 00:00 IMPRESSION: Mild to moderate cardiomegaly. There are visualized coronary calcifications. Evidence for prior granulomatous disease. Pulmonary arterial enlargement could represent pulmonary arterial hypertension. Multilevel prior compression injuries of the thoracic spine as detailed above. Electronically Signed: Sue Martin MD at 22:20 EST , Hip/Pelvis X-Ray 05/12/22 21:50 IMPRESSION: Acute, intratrochanteric fracture of the right femur. Postoperative change right lower quadrant. Electronically Signed: Sue Martin MD at 22:22 EST , Assessment & Plan Assessment/Plan (1) Closed fracture of right hip: PLAN: Patient sustained a right intertrochanteric proximal femur fracture. -Closed, neurovascularly intact -Isolated injury -Recommending surgical intervention in the form of right femur cephalomedullary nailing -I discussed the procedure-its risks, benefits and alternative. Risks include but are not limited to bleeding, infection, loss of life or limb, risk of anesthesia, persistent pain or disability, need for additional surgery, nonunion, malunion, failure of orthopedic hardware, neurovascular injury, DVT or PE. Patient expressed understanding these risks and wished proceed with surgery. -Maintenance IV fluids, clear liquid diet after midnight n.p.o. at 2 hours prior to surgery -Type and screen -2 g Ancef on-call to the OR -Bedrest, heel protectors -Plan to proceed with surgery later today when OR becomes available Thank you for this consultation.
[2022-05-13 08:41] LABS: Absolute Lymphocyte Count 0.78 X10^3/uL (0.83-4.51); Absolute Neutrophil Count 5.2 X10^3/uL (2.0-7.7); Basophil# 0.02 X10^3/uL; Basophil% 0.3 % (0-1); Eosinophil# 0.07 X10^3/uL; Hematocrit 29.7 % (37-47); Hemoglobin 9.4 g/dL (12.0-15.0); Lymphocyte # 0.78 X10^3/ul (0.83-4.51); Lymphocyte % 11.4 % (19-41); Mean Corp Hgb Conc 31.6 g/dL (32-36); Mean Corpuscular Hgb 30.4 pg (27.0-32.0); Mean Corpuscular Volume 96.1 fL (81-99); Mean Platelet Vol. 8.8 fl (6.2-12.0); Monocyte% 11.6 % (0-10); NRBC Flagged by Analyzer 0 % (0-5); Neutrophil # 5.18 X10^3/uL (2.7-7.7); Neutrophil % 75.4 % (47-70); Platelet Count 187 K/mm3 (150-450); RBC Distribution Width CV 14.5 % (11.6-14.6); RBC Distribution Width SD 50.7 fl (35.1-43.9); Red Blood Count 3.09 M/mm3 (4.2-5.4); White Blood Count 6.9 K/mm3 (4.4-11.0)
[2022-05-13 08:52] LABS: Anion Gap 8 (5-15); BUN 8 mg/dL (7-18); BUN/Creat Ratio 11.2 RATIO (10-20); Calcium,Total 8.8 mg/dL (8.5-10.1); Chloride 104 mmol/L (98-107); Creatinine, Serum 0.71 mg/dL (0.55-1.02); EST Glomerular Filtration Rate 84 mL/min (>60); Est Glom Filt Rate - Afr Amer 102 mL/min (>60); Estimated Creatinine Clearance 54.32 ml/min; Glucose 109 mg/dL (74-106); Potassium 3.5 mmol/L (3.5-5.1); Sodium Level 140 mmol/L (136-145)
[2022-05-13] MEDS: Potassium Chloride Oral Tablet 20 MEQ 40 MEQ PO (09:49)
[2022-05-13] MEDS: Isosorbide Mononitrate 30 MG Tablet PO ×2 (09:50→21:25)
[2022-05-13] MEDS: Furosemide 40 MG Tablet PO (09:50)
[2022-05-13] MEDS: Ferrous Sulfate 325 MG Tablet PO (09:50)
[2022-05-13] MEDS: Potassium Chloride Oral Tablet 20 MEQ PO (09:50)
[2022-05-13] MEDS: Pantoprazole Sodium 40 MG Tablet PO (09:51)
[2022-05-13] MEDS: Lisinopril 40 MG Tablet PO (09:51)
[2022-05-13] MEDS: Cholecalciferol (VIT D3) 25 MCG TABLET (1,000 UNITS) PO (09:51)
[2022-05-13] MEDS: Senna/Docusate Sodium 1 Tablet 2 TABLET PO (09:51)
[2022-05-13] MEDS: 0.9% Saline Lock 10 ML Syringe IV ×3 (09:57→22:25)
--- NOTE | 2022-05-13 10:59 | CASEMGMT ---
Social Work SW met w/pt to review prior level of care and anticipated disccharge plan. PCP: Dr. Monaco Specialists: Dr. Keating for cardiology, Dr. Noyola for surgery(just had gall bladder removed last week) Insurance: Medicare, [facility], Worker's Comp Pharmacy: [facility] [place] LNOK: 2 sons, daughter in law, 2 grown grandsons LW/POA: Pt has never done the documents, she is aware without the documents her two sons Memo(in [place]) and Naeem(in [place]) would have to make decisions together, and this is what she would want Living arrangements/Prior level of function: Pt lives home alone in a one story trailer, a few steps to enter. Pt is fully independent with all ADLs, cooking, cleaning, driving, personal ADLs. Pt still works and in fact she fell at work. DME: None HHC/SNF: Pt has had both knees replaced, she did outpt PT at [facility] after one, and had home health care after the other. Pt has never had to go somewhere for rehab(SNF) Plan: TBD Pt would like to go home. She states she has family that can stay w/her, or she can go stay with them. SW did print a list via [employer] of senior living facilities in network w/pt's insurance, in preferred geographic area and complete with quality and resource use data. However, pt did not want the list, as she does feel she will be able to go home. SW explained we will see her again after surgery and PT, and review the plan again, and make referrals for what is the most appropriate option. Pt states understanding. Also, pt has an appt tomorrow w/Dr. Noyola, ELIUD offered to cancel for pt, pt agreeable to this. SW called Dr. Noyola's office and canceled the appt. SW/CM will continue to follow along after surgery and PT/OT to assist with making appropriate plans for discharge. ANAND Hobson
--- NOTE | 2022-05-13 12:10 | CHAPLAIN ---
Type of Pastoral Visit _x__ Initial Visit ___ Follow-up Visit ___ On-call Visit ___ General Patient Visit ___ Spiritual Assessment ___ Family Conference ___ Bereavement ___ Rapid Response ___ Code Blue ___ Other (describe below) Pastoral Care Referral From _x__ Patient ___ Family ___ Nurse ___ Physician ___ Restaurant Operations Manager ___ Metal Buggy Operator ___ Other (describe below) Sacrament/Intervention _x__ Active listening ___ Anointing ___ Voodoo ___ Bereavement ___ Communion ___ Dawna exploration ___ ___ Life review _x__ Prayer ___ Reconciliation ___ Sacrament of Sick ___ Supportive presence ___ Wedding ___ Other (describe below) Pastoral Comments patient is quietly resting in bed and waiting for surgery time; pt welcomes prayer for surgery and recovery; pt states she accepts the situation and will just hope for good return to normal
[2022-05-13 13:30] LABS: Vitamin D,25 Hydroxy 48.5 ng/mL
[2022-05-13] MEDS: Pravastatin 40 MG Tablet PO (21:24)
[2022-05-14] VITALS (18 sets, daily range): BP systolic 97–124; BP diastolic 61–93; PULSE 88–126; RESP 16–18; TEMP 36.6–37.7; O2SAT 92–98; BMI 34.2
[2022-05-14] MEDS: Morphine 4 MG/ML Syringe IV (04:20)
[2022-05-14] MEDS: 0.9% Saline Lock 10 ML Syringe IV ×2 (04:22→09:38)
--- NOTE | 2022-05-14 07:48 | PN.HOSP_ITS ---
Reason for Visit Reason for Visit: Diagnoses Unspecified atrial fibrillation (05/12/22) Fracture of unspecified part of neck of right femur, initial encounter for closed fracture (05/12/22) Personal history of other diseases of the circulatory system (05/12/22) Subjective Subjective Patient seen pain remains controlled. Telemetry monitoring demonstrates A-fib but with controlled rates. Patient is scheduled to undergo surgical intervention this afternoon. Objective Data Objective Data Vital Signs: Vital Signs Temp Pulse Resp BP Pulse Ox O2 Del Method 98.5 F 96 18 113/76 98 Room Air 05/14/22 04:09 05/14/22 04:09 05/14/22 04:09 05/14/22 04:09 05/14/22 04:09 05/14/22 04:10 Oxygen Delivery Method Room Air Weight: 71.894 kg Body Mass Index (BMI) 34.2 Intake & Output: Intake and Output for Last 24 Hours 05/12/22 05/13/22 05/14/22 23:59 23:59 23:59 Intake Total 0 / 0 Output Total 700 / 700 400 / 400 Balance -700 / -700 -400 / -400 Lab / Micro Data Result Diagrams: 05/14/22 08:28 05/14/22 08:28 Labs: Laboratory Results - last 24 hr 05/13/22 08:18: WBC 6.9, RBC 3.09 L, Hgb 9.4 L, Hct 29.7 L, MCV 96.1, MCH 30.4, MCHC 31.6 L, RDW Std Deviation 50.7 H, RDW Coeff of Oralia 14.5, Plt Count 187, MPV 8.8, Immature Gran % (Auto) 0.300, Neut % (Auto) 75.4 H, Lymph % (Auto) 11.4 L, Davis % (Auto) 11.6 H, Eos % (Auto) 1.0, Baso % (Auto) 0.3, Absolute Neuts (auto) 5.2, Absolute Lymphs (auto) 0.78 L, Nucleated RBC % 0 05/13/22 08:18: Sodium 140, Potassium 3.5, Chloride 104, Carbon Dioxide 28.0, Anion Gap 8, BUN 8, Creatinine 0.71, Estim Creat Clear Calc 54.32, Est GFR (MDRD) Af Amer 102, Est GFR (MDRD) Non-Af 84, BUN/Creatinine Ratio 11.2, Glucose 109 H, Calcium 8.8 05/13/22 12:38: Vitamin D 25-Hydroxy 48.5 Physical Exam Narrative GENERAL: cooperative HEENT: Atraumatic; normocephalic EYES; Anicteric, Normal Conjunctiva NECK; supple, normal thyroid, RESPIRATORY: Diminished to auscultation CARDIOVASCULAR: Irregularly irregular GI: soft, normoactive bowel sounds, : No Renal angle tenderness; EXTREMITIES: No edema, no clubbing, MUSCULOSKELETAL: no muscle wasting NEURO: Awake; no lateralizing signs. SKIN: No Rash PSYCH; Flat affect Assessment & Plan Assessment/Plan (1) Closed fracture of right hip: (2) History of atrial fibrillation: (3) Atrial fibrillation with RVR: PLAN: Plan Patient is a 76-year-old lady who slipped and fell. Imaging studies obtained on admission demonstrated acute intertrochanteric fracture of the right femur. Patient was also found to be in A-fib with RVR on admission admitted to a monitored bed with consultation placed orthopedic surgery 1. Acute intratrochanteric fracture involving the right femur ? Patient has been admitted to monitored bed managed with pain management, immobilization and consultation placed to orthopedic surgery. Case was apparently discussed with Dr. Canas by the emergency room physician. Patient perioperative risk was deemed to be below average risk however with patient developing A-fib with RVR patient was admitted to a monitored bed with plans to control rate prior to any surgical intervention ? 05/14/2022 patient surgery scheduled for this afternoon. 2. A-fib with RVR ? Patient did receive metoprolol for rate control. Patient apparently did develop intracranial hemorrhage was previously on warfarin ? 05/14/2022; rate remains controlled 3. 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 - Blood pressure controlled, home medications continued with dose adjustment as needed 4. Anemia - Secondary to chronic disorder monitoring H&H and transfuse if patient becomes symptomatic or hemoglobin falls below 7 ? 05/14/2022 further drop in patient hemoglobin from 9.7 on admission to 8.4. Repeat H&H ordered for a.m. 5. Dyslipidemia -Patient is on statin therapy, continued at home dose 6. Hypokalemia ? Corrected per protocol repeat potassium ordered for monitoring ? Till 05/14/2022; potassium up to 3.7. 7. DVT prophylaxis ? SCDs for now with plans to initiate chemoprophylaxis following patient surgery Time spent in the patient's overall evaluation,decision-making process, review of diagnostic data, adjustment of management, discussion with other providers, nursing nursing and ancillary staff involved in patient's care documentation, 56 Minutes Charges/Coding Visit Charges Inpatient E&M: 57221 [facility] Hosp L3
[2022-05-14 08:37] LABS: Hematocrit 27.7 % (37-47); Hemoglobin 8.4 g/dL (12.0-15.0); Mean Corp Hgb Conc 30.3 g/dL (32-36); Mean Corpuscular Hgb 30.1 pg (27.0-32.0); Mean Corpuscular Volume 99.3 fL (81-99); Mean Platelet Vol. 8.8 fl (6.2-12.0); Platelet Count 173 K/mm3 (150-450); RBC Distribution Width CV 14.6 % (11.6-14.6); RBC Distribution Width SD 53.5 fl (35.1-43.9); Red Blood Count 2.79 M/mm3 (4.2-5.4); White Blood Count 6.6 K/mm3 (4.4-11.0)
[2022-05-14 08:52] LABS: Anion Gap 6 (5-15); BUN 9 mg/dL (7-18); BUN/Creat Ratio 11.1 RATIO (10-20); Calcium,Total 8.9 mg/dL (8.5-10.1); Chloride 104 mmol/L (98-107); Creatinine, Serum 0.81 mg/dL (0.55-1.02); EST Glomerular Filtration Rate 73 mL/min (>60); Est Glom Filt Rate - Afr Amer 88 mL/min (>60); Estimated Creatinine Clearance 67.06 ml/min; Glucose 101 mg/dL (74-106); Potassium 3.7 mmol/L (3.5-5.1); Sodium Level 140 mmol/L (136-145)
[2022-05-14] MEDS: Morphine 2 MG/ML Syringe IV (09:38)
[2022-05-14] MEDS: Pantoprazole Sodium 40 MG Tablet PO (09:39)
[2022-05-14] MEDS: Lisinopril 40 MG Tablet PO (09:39)
[2022-05-14] MEDS: Furosemide 40 MG Tablet PO (09:39)
[2022-05-14] MEDS: Metoprolol Tartrate 100 MG Tablet PO ×2 (09:39→21:26)
[2022-05-14] MEDS: Isosorbide Mononitrate 30 MG Tablet PO ×2 (09:39→21:26)
--- NOTE | 2022-05-14 16:47 | PCM.PN.ORT ---
Subjective Subjective Patient seen and examined. Denies any new complaints. Pain controlled with current pain regimen. Denies fevers, chills, nausea vomiting, chest pain or shortness of breath. Objective Data Objective Data Vital Signs: Vital Signs Temp Pulse Resp BP Pulse Ox O2 Del Method 98.7 F 103 H 18 119/73 93 Room Air 05/14/22 15:50 05/14/22 15:50 05/14/22 15:50 05/14/22 15:50 05/14/22 15:50 05/14/22 15:50 Oxygen Delivery Method Room Air Weight: 158 lb 8 oz Body Mass Index (BMI) 34.2 Intake & Output: Intake and Output for Last 24 Hours 05/12/22 05/13/22 05/14/22 23:59 23:59 23:59 Intake Total 0 / 0 0 / 0 Output Total 700 / 700 400 / 400 Balance -700 / -700 -400 / -400 Lab / Micro Data Result Diagrams: 05/14/22 08:28 05/14/22 08:28 Labs: Laboratory Results - last 24 hr 05/12/22 22:17: Crossmatch See Detail 05/14/22 08:28: WBC 6.6, RBC 2.79 L, Hgb 8.4 L, Hct 27.7 L, MCV 99.3 H, MCH 30.1, MCHC 30.3 L, RDW Std Deviation 53.5 H, RDW Coeff of Oralia 14.6, Plt Count 173, MPV 8.8 05/14/22 08:28: Sodium 140, Potassium 3.7, Chloride 104, Carbon Dioxide 30.0, Anion Gap 6, BUN 9, Creatinine 0.81, Estim Creat Clear Calc 67.06, Est GFR (MDRD) Af Amer 88, Est GFR (MDRD) Non-Af 73, BUN/Creatinine Ratio 11.1, Glucose 101, Calcium 8.9 Physical Exam Narrative General -A&Ox3, NAD, appears stated age. Respiratory -normal work of breathing, no intercostal retractions. CV -pulses irregular, brisk capillary refill ?4 limbs. Abdomen-soft, nontender, nondistended. No guarding, rigidity, rebound tenderness. Musculoskeletal/neurologic -full range of motion nontender throughout bilateral upper extremities, left lower extremity with full sensation and strength in all dermatomes and myotomes. No midline cervical tenderness. Right lower extremity-no obvious deformity. Pain with logroll of the right lower extremity. Nontender throughout the right knee femoral shaft, tibial shaft and right foot/ankle. Brisk capillary refill. Sensation intact light touch L3-S1 dermatomes. DF, PF, EHL intact. DP, PT 2+. Pelvis is stable, nontender. Skin is intact without lacerations, abrasions. No ecchymosis noted. Assessment & Plan Assessment/Plan (1) Closed fracture of right hip: QUALIFIERS: Encounter type: initial encounter Qualified Code(s): S72.001A - Fracture of unspecified part of neck of right femur, initial encounter for closed fracture PLAN: Plan to proceed with right femur cephalomedullary nailing this afternoon. Surgery was postponed yesterday due to surgery being bumped due to more emergent surgeries. All questions answered to the patient's satisfaction and informed consent confirmed with the patient. The operative extremity was marked. I did transfuse the patient 1 unit packed red blood cells due to acute blood loss anemia secondary to fracture in the setting of chronic anemia. Another unit packed red blood cells colon and rectal surgeon. I will avoid using TXA perioperatively due to chronic atrial fibrillation and lack of anticoagulation due to history of brain bleed. Further recommendations pending surgery.
[2022-05-14] MEDS: Lactated Ringers 1,000 ML 15 ML IV (16:50)
[2022-05-14] MEDS: Cefazolin 2 GM in 0.9% Normal Saline 100 ML IV (18:07)
--- NOTE | 2022-05-14 18:20 | RAD_ITS ---
STUDY: X-RAY - PELVIS AND RIGHT HIP REASON FOR EXAM: Female, 76 years old. Right femoral fracture. TECHNIQUE: 7 intraoperative views of the pelvis and hip. Fluoroscopy time is not provided. COMPARISON: Pelvis and right hip, May 12, 2022. FINDINGS: The provided images demonstrate alignment of the intertrochanteric femoral fracture noted on the prior study. There is subsequent placement of a medullary phani into the femoral shaft with transfixing gamma nail into the femoral head and neck. Fracture is in normal alignment. . RAD/Hip Min 2 Views (Portable) IMPRESSION: Surgical fixation of a right intertrochanteric fracture in the OR. Electronically Signed: Martín Cazares DO at 19:30 EST ,
--- NOTE | 2022-05-14 19:22 | OP.PCM_ITS ---
Report of Operation Date of Procedure: 05/14/22 Description of Surgical Findings:: Preoperative diagnosis: Right intertrochanteric proximal femur fracture Postoperative diagnosis: Right intertrochanteric proximal femur fracture Procedure: Treatment of intertrochanteric hip fracture with intramedullary nail right femur Surgeon: Rancho Canas DO Anesthesia: General endotracheal Anesthesiologist: Dr. King Complications: None Drains: None Estimated blood loss: 250 cc Urinary output: None recorded IV fluids: 500 cc crystalloid Specimens: None Surgical implants: [place] Gamma3 Cephalomedullary Nail 125 degree 10 mm x 340 mm right, 10.5 mm x 95 mm lag screw, Interlocking screws size 5 mm x 42.5 mm x2 Surgical indications: Patient is a 76 F who presents after mechanical fall at work the evening of 05/12/2022. She stepped on top of a paper towel roll to change a paper towel above her reaching height. She states she has done this for over a year without difficulty. She states her left foot was not completely on top of the paper towel roll causing her to fall and land on her right side. She denies any head injury or loss consciousness. Denies any antecedent right hip or groin pain. Patient is a community ambulator without assistive device. Orthopedics was consulted for surgical recommendations.I recommended cephalomedullary nail fixation of her right intertrochanteric proximal femur fracture. Surgery was scheduled for yesterday 05/13/2022 but surgery was delayed due to surgery scheduling and more urgent cases taking priority from other services. The risks, benefits, alternatives to procedure reviewed with the patient. The risks of the surgery included bleeding, infection, loss of life or limb, malunion, nonunion, damage to vital structures, neurovascular injury, failure of orthopedic hardware, need for additional surgery, persistent pain or disability, risk of anesthesia. The patient expressed understanding of these risks and agreed to proceed with surgery. Blood consent was also obtained. Description of procedure: Patient was seen in preoperative holding area. She was identified by name, medical record number, date of . The operative extremity was marked with a surgical marker. We confirmed informed consent with the patient and questions were answered to her satisfaction. Patient was brought to the operative suite, and general anesthesia was induced on her hospital bed. Endotracheal tube was secured. After adequate anesthesia, patient was transferred to a fracture table with all bony prominences being well-padded. A perineal post was placed to secure the patient on the table. We then applied a ski boot which was well-padded to the operative extremity. The well leg was dropped into extension and secured to the axial post of the fracture table with a pillow and Coban. The right arm was brought across patient's chest with a blanket on her chest. We then performed a closed reduction maneuver with external rotation, traction, internal rotation and adduction. Fluoroscopic images were obtained. Fracture appeared to be accepta belen reduced following closed reduction. Given the reverse obliquity of the fracture and subtrochanteric extension, long cephalomedullary device was indicated. We then prepped and draped the right lower extremity in normal, sterile orthopedic fashion. A timeout was performed with all parties in attendance in agreement with the side, site, and operation be performed. 2 g Ancef was administered prior to incision. No concerns were voiced and we elected to proceed. I first used fluoroscopy to tawnya the level of the fracture and planned incision for insertion of the cephalomedullary nail device. In line with the long axis of the femur, 4 fingerbreadths proximal to the tip of the greater trochanter, a full-thickness skin incision was planned.. Skin was sharply incised with 10 blade scalpel, carried into the subcutaneous tissues. The IT band was encountered and split and planned trajectory of the nail placement. The greater trochanter was then able to be palpated digitally. I then placed a threaded guidewire just medial to the tip of the greater trochanter and in the anterior third of it on the lateral. Opening reamer was then placed over top of the guidewire after placement was confirmed on C arm. A ball-tipped guidewire then was passed into the intramedullary canal after reamer was removed. We used C arm to confirm our placement within the bone. We then sequentially reamed to a final diameter of 11.5 mm using flexible reamers. Reduction was again confirmed. We selected her nail to be 340 mm x 10 mm diameter. Reamers were removed. Nail was assembled on the back table. We placed it over the ball- tipped guidewire and impacted to an appropriate depth. Rotation was confirmed on the lateral. Drill sleeve was placed through the targeting guide. We drilled the pin for the lag screw at an appropriate position and depth, tip to apex distance less than 25 mm on AP and lateral combined. Depth gauge was used to measure the length of the screw, 95 mm. We then used the cannulated drill to drill to an appropriate depth. Drill was removed, drill pin left in place. Lag screw was placed over top of the drill pin and tightened to an appropriate depth. Setscrew was then placed and tightened, and then turned back a quarter turn to allow the lag screw to slide. Final fluoroscopic images of the hip were obtained at this point. I then turned my attention to the distal interlocking slots of the intramedullary device. Perfect [place] technique was utilized to place 2 bicortical screws in the dynamic and static slots of the screw, confirming placement within the intramedullary device using perfect [place] technique. These were made via stab incision along the lateral thigh. Final fluoroscopic images were obtained distally. We irrigated the wounds copiously with normal saline solution. Hemostasis was excellent at this point. We then closed the deeper layers, IT band with 0 Vicryl. Intradermal buried stitches of 2-0 Vicryl were utilized and skin finally reapproximated with skin evie. Sterile compression dressing of Xeroform, 4 x 4's, and Tegaderm was applied. Patient tolerated procedure well without complication. She was transferred back to her hospital bed and subsequently to PACU in stable condition. Intraoperative medications: 2 g Ancef IV Post Operative Plan: Weightbearing: Weightbearing as tolerated right lower extremity with a walker Antibiotics: Ancef 2 g x 3 doses postoperatively, 1 dose given preoperatively DVT Prophylaxis: Per primary due to complex history with spontaneous intracranial hemorrhage while on Coumadin for chronic atrial fibrillation, preoperative discussion with hospitalist tending towards Lovenox. I would recommend 28 days postoperative anticoagulation prophylaxis. Courtney: None Dressing: Dry sterile dressing changes daily and as needed for saturation X-Rays: 2 weeks postop in the office Follow-up: 2 weeks post-operatively with me in the office
--- NOTE | 2022-05-14 20:44 | NURSING ---
Pt back to room from surgery. no complaints at this time.
[2022-05-14] MEDS: Acetaminophen 500 MG Tablet 1000 MG PO (21:26)
[2022-05-14] MEDS: Pravastatin 40 MG Tablet PO (21:26)
[2022-05-15] VITALS (16 sets, daily range): BP systolic 75–121; BP diastolic 46–84; PULSE 98–137; RESP 16–18; TEMP 36.6–38.1; O2SAT 94–100
--- NOTE | 2022-05-15 02:00 | NURSING ---
This nurse and accompanying nurse attempted to get patient up to ambulate since surgery and use the restroom. Pt refused at this time and stated she would get up in a few hours. Pt blood pressure decreased and VSA states to do vitals in 2 hours. Vitals will be done at 0400 and will atempt to get patient up then.
[2022-05-15] MEDS: 0.9% Normal Saline 1,000 ML 999 ML IV (04:42)
[2022-05-15] MEDS: 0.9% Saline Lock 10 ML Syringe IV (04:43)
[2022-05-15 06:25] LABS: Hematocrit 24.1 % (37-47); Hemoglobin 7.4 g/dL (12.0-15.0); Mean Corp Hgb Conc 30.7 g/dL (32-36); Mean Corpuscular Hgb 30.3 pg (27.0-32.0); Mean Corpuscular Volume 98.8 fL (81-99); Mean Platelet Vol. 9.3 fl (6.2-12.0); Platelet Count 136 K/mm3 (150-450); RBC Distribution Width CV 14.3 % (11.6-14.6); RBC Distribution Width SD 51.2 fl (35.1-43.9); Red Blood Count 2.44 M/mm3 (4.2-5.4); White Blood Count 6.3 K/mm3 (4.4-11.0)
[2022-05-15] MEDS: Lactated Ringers 1,000 ML 125 ML IV (06:29)
--- NOTE | 2022-05-15 07:29 | PN.ORTHO_ITS ---
Subjective Subjective Patient seen and examined. Denies any new complaints. States pain is controlled. Up with nursing earlier this morning. Patient was tachycardic and hypotensive overnight. She received 500 cc bolus. She was lightheaded when she got up with nursing. Objective Data Objective Data Vital Signs: Vital Signs Temp Pulse Resp BP Pulse Ox O2 Del Method O2 Flow Rate 98.9 F 100 16 101/50 L 95 Nasal Cannula 2 05/15/22 06:56 05/15/22 06:56 05/15/22 06:56 05/15/22 06:56 05/15/22 06:56 05/15/22 06:56 05/15/22 06:56 Oxygen Flow Rate (L/min) 2 Oxygen Delivery Method Nasal Cannula Weight: 158 lb 1.143 oz Body Mass Index (BMI) 34.2 Intake & Output: Intake and Output for Last 24 Hours 05/13/22 05/14/22 05/15/22 23:59 23:59 23:59 Intake Total 0 / 0 510 / 510 1000 / 1000 Output Total 700 / 700 1450 / 1450 Balance -700 / -700 -940 / -940 1000 / 1000 Lab / Micro Data Result Diagrams: 05/15/22 05:45 05/14/22 08:28 Labs: Laboratory Results - last 24 hr 05/12/22 22:17: Crossmatch See Detail 05/14/22 08:28: WBC 6.6, RBC 2.79 L, Hgb 8.4 L, Hct 27.7 L, MCV 99.3 H, MCH 30.1, MCHC 30.3 L, RDW Std Deviation 53.5 H, RDW Coeff of Oralia 14.6, Plt Count 173, MPV 8.8 05/14/22 08:28: Sodium 140, Potassium 3.7, Chloride 104, Carbon Dioxide 30.0, Anion Gap 6, BUN 9, Creatinine 0.81, Estim Creat Clear Calc 67.06, Est GFR (M DRD) Af Amer 88, Est GFR (MDRD) Non-Af 73, BUN/Creatinine Ratio 11.1, Glucose 101, Calcium 8.9 05/15/22 05:45: WBC 6.3, RBC 2.44 L, Hgb 7.4 L, Hct 24.1 L, MCV 98.8, MCH 30.3, MCHC 30.7 L, RDW Std Deviation 51.2 H, RDW Coeff of Oralia 14.3, Plt Count 136 L, MPV 9.3 Radiography Diagnostic Testing: Radiology Impression Hip X-Ray 05/14/22 18:20 IMPRESSION: Surgical fixation of a right intertrochanteric fracture in the OR. Electronically Signed: Martín Cazares, at 19:30 EST Reading Location ID and State: [address] [place] [address] Tel [phone], Service support , Physical Exam Narrative General - A&Ox3, NAD. VSS/AF Right lower extremity -incisional dressing shows moderate serosanguineous drainage. SILT Sural, Saphenous, SPN, DPN, Tibial N. distributions. DP, PT 2+. BCR. DF, PF, EHL 5/5. No calf TTP. Assessment & Plan Assessment/Plan (1) Closed fracture of right hip: QUALIFIERS: Encounter type: initial encounter Qualified Code(s): S72.001A - Fracture of unspecified part of neck of right femur, initial encounter for closed fracture PLAN: POD#1 s/p right femur CMN - Pain control - Medicine following for medical management - PT/OT-weightbearing as tolerated right lower extremity - DVT PPX -defer to primary regarding complex history of intracranial hemorrhage, SCDs, SIMIN kwakue - Case management - D/C planning (2) Acute blood loss anemia: PLAN: Patient demonstrated hemodynamic instability without significant response from 500 cc IV fluid bolus. Her hemoglobin is 7.4 this morning. This is consistent with acute blood loss anemia with expected drop following surgery in the setting of chronic anemia. I will transfuse the patient an additional 1 unit packed red blood cells this morning.
[2022-05-15] MEDS: Ferrous Sulfate 325 MG Tablet PO ×2 (08:30→17:12)
[2022-05-15] MEDS: Potassium Chloride Oral Tablet 20 MEQ PO (08:30)
[2022-05-15] MEDS: Calcium Carbonate 500 MG Tablet PO ×3 (08:30→17:12)
[2022-05-15 08:35] LABS: Anion Gap 8 (5-15); BUN 13 mg/dL (7-18); Calcium,Total 7.8 mg/dL (8.5-10.1); Chloride 104 mmol/L (98-107); Creatinine, Serum 1.08 mg/dL (0.55-1.02); EST Glomerular Filtration Rate 52 mL/min (>60); Est Glom Filt Rate - Afr Amer 63 mL/min (>60); Estimated Creatinine Clearance 50.16 ml/min; Glucose 99 mg/dL (74-106); Potassium 3.6 mmol/L (3.5-5.1); Sodium Level 142 mmol/L (136-145)
[2022-05-15] MEDS: Cefazolin 2 GM in 0.9% Normal Saline 100 ML IV ×3 (08:37→23:26)
--- NOTE | 2022-05-15 08:41 | CASEMGMT ---
SW received a voice mail from an Jacklyn Hodges RN CM with worker's comp for patient. Jacklyn is asking for updates and clinicals on patient. Jacklyn's phone number is:[phone] and her fax is:[phone]. Ginger MATT
--- NOTE | 2022-05-15 09:25 | PCM.PN.HOSP ---
Reason for Visit Reason for Visit: Diagnoses Acute posthemorrhagic anemia (05/12/22) Unspecified atrial fibrillation (05/12/22) Fracture of unspecified part of neck of right femur, initial encounter for closed fracture (05/12/22) Personal history of other diseases of the circulatory system (05/12/22) Subjective Subjective Patient underwent treatment of intertrochanteric hip fracture with intramedullary nail right femur by Dr. Canas on 05/14/2022. Seen this AM. Hemoglobin down to 7.4 Objective Data Objective Data Vital Signs: Vital Signs Temp Pulse Resp BP Pulse Ox O2 Del Method O2 Flow Rate 98.9 F 103 H 16 101/50 L 99 Nasal Cannula 2 05/15/22 06:56 05/15/22 07:59 05/15/22 06:56 05/15/22 06:56 05/15/22 08:00 05/15/22 08:46 05/15/22 08:00 Oxygen Flow Rate (L/min) 2 Oxygen Delivery Method Nasal Cannula Weight: 71.7 kg Body Mass Index (BMI) 34.2 Intake & Output: Intake and Output for Last 24 Hours 05/13/22 05/14/22 05/15/22 23:59 23:59 23:59 Intake Total 0 / 0 510 / 510 1533.75 / 1533.75 Output Total 700 / 700 1450 / 1450 Balance -700 / -700 -940 / -940 1533.75 / 1533.75 Lab / Micro Data Result Diagrams: 05/15/22 05:45 05/15/22 05:45 Labs: Laboratory Results - last 24 hr 05/12/22 22:17: Crossmatch See Detail 05/15/22 05:45: WBC 6.3, RBC 2.44 L, Hgb 7.4 L, Hct 24.1 L, MCV 98.8, MCH 30.3, MCHC 30.7 L, RDW Std Deviation 51.2 H, RDW Coeff of Oralia 14.3, Plt Count 136 L, MPV 9.3 05/15/22 05:45: Sodium 142, Potassium 3.6, Chloride 104, Carbon Dioxide 30.0, Anion Gap 8, BUN 13, Creatinine 1.08 H, Estim Creat Clear Calc 50.16, Est GFR (MDRD) Af Amer 63, Est GFR (MDRD) Non-Af 52 L, BUN/Creatinine Ratio 12.0, Glucose 99, Calcium 7.8 L Radiography Diagnostic Testing: Radiology Impression Hip X-Ray 05/14/22 18:20 IMPRESSION: Surgical fixation of a right intertrochanteric fracture in the OR. Electronically Signed: Martín Cazares DO at 19:30 EST Reading Location ID and State: [address] [place] [address] Tel [phone], Service support , Physical Exam Narrative GENERAL: cooperative HEENT: Atraumatic; normocephalic EYES; Anicteric, Normal Conjunctiva NECK; supple, normal thyroid, RESPIRATORY: Diminished to auscultation CARDIOVASCULAR: Irregularly irregular GI: soft, normoactive bowel sounds, : No Renal angle tenderness; EXTREMITIES: No edema, no clubbing, MUSCULOSKELETAL: no muscle wasting NEURO: Awake; no lateralizing signs. SKIN: No Rash PSYCH; Flat affect Assessment & Plan Assessment/Plan (1) Closed fracture of right hip: QUALIFIERS: Encounter type: initial encounter Qualified Code(s): S72.001A - Fracture of unspecified part of neck of right femur, initial encounter for closed fracture (2) History of atrial fibrillation: (3) Atrial fibrillation with RVR: PLAN: Plan Patient is a 76-year-old lady who slipped and fell. Imaging studies obtained on admission demonstrated acute intertrochanteric fracture of the right femur. Patient was also found to be in A-fib with RVR on admission admitted to a monitored bed with consultation placed orthopedic surgery 1. Acute intratrochanteric fracture involving the right femur ? Patient has been admitted to monitored bed managed with pain management, immobilization and consultation placed to orthopedic surgery. Case was apparently discussed with Dr. Canas by the emergency room physician. Patient perioperative risk was deemed to be below average risk however with patient developing A-fib with RVR patient was admitted to a monitored bed with plans to control rate prior to any surgical intervention ? 05/14/2022 patient surgery scheduled for this afternoon. ? 05/15/2022; Patient underwent treatment of intertrochanteric hip fracture with intramedullary nail right femur by Dr. Canas on 05/14/19 2. A-fib with RVR ? Patient did receive metoprolol for rate control. Patient apparently did develop intracranial hemorrhage was previously on warfarin ? 05/14/2022; rate remains controlled 3. 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 - Blood pressure controlled, home medications continued with dose adjustment as needed 4. Anemia - Secondary to chronic disorder monitoring H&H and transfuse if patient becomes symptomatic or hemoglobin falls below 7 ? 05/14/2022 further drop in patient hemoglobin from 9.7 on admission to 8.4. Repeat H&H ordered for a.m. ? 05/15/2022 hemoglobin down to 7.4. With patient deemed to be symptomatic and order was given for patient to be transfused with 1 unit PRBC posttransfusion H&H ordered 5. Dyslipidemia -Patient is on statin therapy, continued at home dose 6. Hypokalemia ? Corrected per protocol repeat potassium ordered for monitoring ? Till 05/14/2022; potassium up to 3.7. 7. DVT prophylaxis ? SCDs for now with plans to initiate chemoprophylaxis following patient surgery ? 05/15/2022 patient started on DVT prophylaxis with Lovenox 30 mg SC daily Time spent in the patient's overall evaluation,decision-making process, review of diagnostic data, adjustment of management, discussion with other providers, nursing nursing and ancillary staff involved in patient's care documentation, 56 Minutes Charges/Coding Visit Charges Inpatient E&M: 27369 Subs Hosp L3
[2022-05-15] MEDS: Metoprolol Tartrate 100 MG Tablet PO ×2 (11:17→23:27)
[2022-05-15] MEDS: Lisinopril 40 MG Tablet PO (11:18)
[2022-05-15] MEDS: Senna/Docusate Sodium 1 Tablet 2 TABLET PO ×2 (11:18→23:16)
[2022-05-15] MEDS: Cholecalciferol (VIT D3) 25 MCG TABLET (1,000 UNITS) PO (11:18)
[2022-05-15] MEDS: Furosemide 40 MG Tablet PO (11:18)
[2022-05-15] MEDS: Pantoprazole Sodium 40 MG Tablet PO (11:18)
[2022-05-15] MEDS: Isosorbide Mononitrate 30 MG Tablet PO ×2 (11:18→23:30)
[2022-05-15] MEDS: oxyCODONE 5 MG Tablet 10 MG PO (11:35)
[2022-05-15] MEDS: Enoxaparin 30 MG/0.3 ML Syringe SC (12:54)
--- NOTE | 2022-05-15 13:15 | CASEMGMT ---
Therapy said patient is going to need to go to a alf for rehab as she did not do well. SW went to patient's room and she was sleeping. ELIUD called Tyesha with Worker's Comp and she has not received any information from the hospital on patient's hospital stay. Tyesha said she would need this information so she can get patient's hospital admission approved which will help speed up process to get d/c plans approved. ELIUD spoke with Director Baylee Cisneros and the person Tyesha needs to speak with would be Lizzette Young [phone]. ELIUD called Tyesha back and gave her this information. Tyesha asked that ELIUD send her d/c notes and C9. ELIUD can fax them or e-mail them to her at [email or web address]. ELIUD then called Lizzette Fernandez and left her a voice mail with Tyesha's contact information. ELIUD will speak with patient about nursing homes. Ginger MATT
--- NOTE | 2022-05-15 15:54 | CASEMGMT ---
SW met with patient. Introduced self and role at [facility]. SW spoke with patient about going somewhere for rehab. Patient was rather sleepy and seemed to have a hard time staying awake. SW let patient know SW will leave the list of facilities by her bedside and she will need to pick a few that she would be okay with. Patient verbalized understanding. SW will check back with patient. Plan: SNF pending patient patient choices, accepting facility, and Worker's Comp approval. Ginger MATT
[2022-05-15] MEDS: Pravastatin 40 MG Tablet PO (23:16)
[2022-05-15] MEDS: Acetaminophen 500 MG Tablet 1000 MG PO (23:39)
[2022-05-16] VITALS (13 sets, daily range): BP systolic 84–126; BP diastolic 50–91; PULSE 92–137; RESP 16–18; TEMP 36.5–37; O2SAT 95–99
[2022-05-16] MEDS: Lactated Ringers 1,000 ML 125 ML IV ×3 (03:57→20:21)
[2022-05-16 06:28] LABS: Hematocrit 27.7 % (37-47); Hemoglobin 8.5 g/dL (12.0-15.0); Mean Corp Hgb Conc 30.7 g/dL (32-36); Mean Corpuscular Hgb 30.5 pg (27.0-32.0); Mean Corpuscular Volume 99.3 fL (81-99); Mean Platelet Vol. 9.8 fl (6.2-12.0); Platelet Count 138 K/mm3 (150-450); RBC Distribution Width CV 14.1 % (11.6-14.6); RBC Distribution Width SD 50.7 fl (35.1-43.9); Red Blood Count 2.79 M/mm3 (4.2-5.4); White Blood Count 5.7 K/mm3 (4.4-11.0)
[2022-05-16] MEDS: Acetaminophen 500 MG Tablet 1000 MG PO ×3 (06:43→23:04)
--- NOTE | 2022-05-16 06:44 | PN.ORTHO_ITS ---
Subjective Subjective Patient seen and examined. Denies any new complaints. Out of bed with therapy yesterday. States that did well but did have significant pain in her right hip. Denies fevers, chills, nausea vomiting, chest pain or shortness of breath. Objective Data Objective Data Vital Signs: Vital Signs Temp Pulse Resp BP Pulse Ox O2 Del Method O2 Flow Rate 98.2 F 100 16 114/66 99 Nasal Cannula 3 05/16/22 01:12 05/16/22 01:12 05/16/22 01:12 05/16/22 01:12 05/16/22 01:12 05/16/22 01:12 05/15/22 23:12 Oxygen Flow Rate (L/min) 3 Oxygen Delivery Method Nasal Cannula Weight: 166 lb 10.711 oz Body Mass Index (BMI) 34.2 Intake & Output: Intake and Output for Last 24 Hours 05/14/22 05/15/22 05/16/22 23:59 23:59 23:59 Intake Total 510 / 510 2860.00 / 3010.00 260 / 260 Output Total 1450 / 1450 Balance -940 / -940 2860.00 / 3010.00 260 / 260 Lab / Micro Data Result Diagrams: 05/16/22 05:35 05/15/22 05:45 Labs: Laboratory Results - last 24 hr 05/12/22 22:17: Crossmatch See Detail 05/15/22 05:45: Sodium 142, Potassium 3.6, Chloride 104, Carbon Dioxide 30.0, Anion Gap 8, BUN 13, Creatinine 1.08 H, Estim Creat Clear Calc 50.16, Est GFR (MDRD) Af Amer 63, Est GFR (MDRD) Non-Af 52 L, BUN/Creatinine Ratio 12.0, Glucose 99, Calcium 7.8 L 05/16/22 05:35: WBC 5.7, RBC 2.79 L, Hgb 8.5 L, Hct 27.7 L, MCV 99.3 H, MCH 30.5, MCHC 30.7 L, RDW Std Deviation 50.7 H, RDW Coeff of Oralia 14.1, Plt Count 138 L, MPV 9.8 Physical Exam Narrative General - A&Ox3, NAD. VSS/AF Right lower extremity -incisional dressing shows shadowing with serosanguineous drainage. SILT Sural, Saphenous, SPN, DPN, Tibial N. distributions. DP, PT 2+. BCR. DF, PF, EHL 5/5. Negative Homans' sign bilaterally. Assessment & Plan Assessment/Plan (1) Closed fracture of right hip: QUALIFIERS: Encounter type: initial encounter Qualified Code(s): S72.001A - Fracture of unspecified part of neck of right femur, initial encounter for closed fracture PLAN: POD#2 s/p right femur CMN - Pain control - Medicine following for medical management - PT/OT-weightbearing as tolerated right lower extremity - DVT PPX -Lovenox 30 mg subcutaneously daily x28 days, SIMIN Miranda - Case management - D/C planning -Patient doing well from my standpoint. I will sign off at this time. Please not hesitate to call if any questions or concerns arise. Discharge instructions: Dry sterile dressing changes daily. Okay to shower po stoperative day #4 if no drainage. No tub soaks. Weightbearing as tolerated right lower extremity. Follow-up in 2 weeks for staple removal and x-rays. (2) Acute blood loss anemia: PLAN: Status post 1 unit transfusion packed red blood cells yesterday, hemoglobin improved to 8.5. No evidence of active bleeding. Continue home ferrous sulfate.
--- NOTE | 2022-05-16 07:54 | PN.HOSP_ITS ---
Reason for Visit Reason for Visit: Diagnoses Acute posthemorrhagic anemia (05/12/22) Unspecified atrial fibrillation (05/12/22) Fracture of unspecified part of neck of right femur, initial encounter for closed fracture (05/12/22) Personal history of other diseases of the circulatory system (05/12/22) Subjective Subjective Patient did experience urinary retention this morning and order was given for patient to be straight cath. Hemoglobin up to 8.5 following transfusion with 1 unit PRBC. Objective Data Objective Data Vital Signs: Vital Signs Temp Pulse Resp BP Pulse Ox O2 Del Method O2 Flow Rate 98.2 F 103 H 16 114/66 99 Nasal Cannula 3 05/16/22 01:12 05/16/22 06:59 05/16/22 01:12 05/16/22 01:12 05/16/22 01:12 05/16/22 01:12 05/15/22 23:12 Oxygen Flow Rate (L/min) 3 Oxygen Delivery Method Nasal Cannula Weight: 75.6 kg Body Mass Index (BMI) 34.2 Intake & Output: Intake and Output for Last 24 Hours 05/14/22 05/15/22 05/16/22 23:59 23:59 23:59 Intake Total 510 / 510 2860.00 / 3010.00 260 / 260 Output Total 1450 / 1450 Balance -940 / -940 2860.00 / 3010.00 260 / 260 Lab / Micro Data Result Diagrams: 05/16/22 05:35 05/15/22 05:45 Labs: Laboratory Results - last 24 hr 05/12/22 22:17: Crossmatch See Detail 05/15/22 05:45: Sodium 142, Potassium 3.6, Chloride 104, Carbon Dioxide 30.0, Anion Gap 8, BUN 13, Creatinine 1.08 H, Estim Creat Clear Calc 50.16, Est GFR (MDRD) Af Amer 63, Est GFR (MDRD) Non-Af 52 L, BUN/Creatinine Ratio 12.0, Glucose 99, Calcium 7.8 L 05/16/22 05:35: WBC 5.7, RBC 2.79 L, Hgb 8.5 L, Hct 27.7 L, MCV 99.3 H, MCH 30.5, MCHC 30.7 L, RDW Std Deviation 50.7 H, RDW Coeff of Oralia 14.1, Plt Count 138 L, MPV 9.8 Physical Exam Narrative GENERAL: cooperative HEENT: Atraumatic; normocephalic EYES; Anicteric, Normal Conjunctiva NECK; supple, normal thyroid, RESPIRATORY: Diminished to auscultation CARDIOVASCULAR: Irregularly irregular GI: soft, normoactive bowel sounds, : No Renal angle tenderness; EXTREMITIES: No edema, no clubbing, MUSCULOSKELETAL: no muscle wasting NEURO: Awake; no lateralizing signs. SKIN: No Rash PSYCH; Flat affect Assessment & Plan Assessment/Plan (1) Closed fracture of right hip: QUALIFIERS: Encounter type: initial encounter Qualified Code(s): S72.001A - Fracture of unspecified part of neck of right femur, initial encounter for closed fracture (2) History of atrial fibrillation: (3) Atrial fibrillation with RVR: PLAN: Plan Patient is a 76-year-old lady who slipped and fell. Imaging studies obtained on admission demonstrated acute intertrochanteric fracture of the right femur. Patient was also found to be in A-fib with RVR on admission admitted to a monitored bed with consultation placed orthopedic surgery 1. Acute intratrochanteric fracture involving the right femur ? Patient has been admitted to monitored bed managed with pain management, immobilization and consultation placed to orthopedic surgery. Case was apparently discussed with Dr. Canas by the emergency room physician. Patient perioperative risk was deemed to be below average risk however with patient developing A-fib with RVR patient was admitted to a monitored bed with plans to control rate prior to any surgical intervention ? 05/14/2022 patient surgery scheduled for this afternoon. ? 05/15/2022; Patient underwent treatment of intertrochanteric hip fracture with intramedullary nail right femur by Dr. Canas on 05/14/22 ? 05/16/2022; patient pain is tolerable plan is for patient to be transferred to a residential facility once she picks 1 and her Worker's Comp. goes through. 2. A-fib with RVR ? Patient did receive metoprolol for rate control. Patient apparently did develop intracranial hemorrhage was previously on warfarin ? 05/14/2022; rate remains controlled 3. 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 - Blood pressure controlled, home medications continued with dose adjustment as needed 4. Anemia - Secondary to chronic disorder monitoring H&H and transfuse if patient becomes symptomatic or hemoglobin falls below 7 ? 05/14/2022 further drop in patient hemoglobin from 9.7 on admission to 8.4. Repeat H&H ordered for a.m. ? 05/15/2022 hemoglobin down to 7.4. With patient deemed to be symptomatic and order was given for patient to be transfused with 1 unit PRBC posttransfusion H&H ordered 5. Dyslipidemia -Patient is on statin therapy, continued at home dose 6. Hypokalemia ? Corrected per protocol repeat potassium ordered for monitoring ? Till 05/14/2022; potassium up to 3.7. 7. DVT prophylaxis ? SCDs for now with plans to initiate chemoprophylaxis following patient surgery ? 05/15/2022 patient started on DVT prophylaxis with Lovenox 30 mg SC daily 8. Acute urinary retention ? An order was given for patient to be straight cath. Time spent in the patient's overall evaluation,decision-making process, review of diagnostic data, adjustment of management, discussion with other providers, nursing nursing and ancillary staff involved in patient's care documentation, 36 Minutes Charges/Coding Visit Charges Inpatient E&M: 75914 Subs Hosp L2
[2022-05-16] MEDS: Enoxaparin 30 MG/0.3 ML Syringe SC (08:18)
[2022-05-16] MEDS: Furosemide 40 MG Tablet PO (08:18)
[2022-05-16] MEDS: Metoprolol Tartrate 100 MG Tablet PO ×2 (08:18→23:02)
[2022-05-16] MEDS: Cholecalciferol (VIT D3) 25 MCG TABLET (1,000 UNITS) PO (08:18)
[2022-05-16] MEDS: Isosorbide Mononitrate 30 MG Tablet PO ×2 (08:18→23:03)
[2022-05-16] MEDS: Lisinopril 40 MG Tablet PO (08:18)
[2022-05-16] MEDS: Ferrous Sulfate 325 MG Tablet PO ×2 (08:18→16:17)
[2022-05-16] MEDS: Senna/Docusate Sodium 1 Tablet 2 TABLET PO ×2 (08:19→23:04)
[2022-05-16] MEDS: Potassium Chloride Oral Tablet 20 MEQ PO (08:19)
[2022-05-16] MEDS: Calcium Carbonate 500 MG Tablet PO ×3 (08:19→16:17)
[2022-05-16] MEDS: Pantoprazole Sodium 40 MG Tablet PO (08:19)
--- NOTE | 2022-05-16 09:15 | CASEMGMT ---
SW spoke with patient. Introduced self and role at [facility]. Patient said she has not looked at the list. SW asked patient to please review the list so SW can work on referrals. SW noted patient has a son that lives in [place] so SW mentioned the 2 facilities in [place]. SW also noted where patient lives in [place] and mentioned the 2 facilities that are near her home. SW again encouraged patient to review the list so SW can work on referrals and find out if the facilities she chooses take Worker's Comp. SW told patient SW will check back. Ginger Berrios MSW VERNELL
--- NOTE | 2022-05-16 10:10 | CASEMGMT ---
ELIUD called Tyesha with [employer], the ADOR managing patient's Worker's Comp claim. ELIUD left her a voice mail letting her know SW will be completing a C9 for [facility] Acute Inpatient Rehab Unit. ELIUD will call her when ELIUD faxes this form and documentation. Ginger MATT
--- NOTE | 2022-05-16 11:37 | CASEMGMT ---
ELIUD spoke with Lizzette in [facility] Acute Rehab and they are able to take patient's on Worker's Comp. SW spoke with patient and she was open to going to Inpatient Rehab. SW let patient know SW will work on this, but SW is not sure how soon this will happen as Worker's Comp has to approve it. SW will let her know when SW has updated information. Ginger Berrios CL[employer] VERNELL
--- NOTE | 2022-05-16 12:13 | CASEMGMT ---
ELIUD called Tyesha and let her know ELIUD is e-mailing the C9 and supporting documentation right now. Tyesha said she has not received any clinicals for the hospitalization yet. Tyesha did say that sometimes there is a delay as the information is faxed to a central area, they turn it into a PDF and then send it to her. C9 and supporting documentation e-mailed to Tyesha with [employer]. Ginger Berrios MINE DEPUTY VERNELL
[2022-05-16 16:59] LABS: Bacteria 0 SEEN /hpf (None Seen); Red Blood Cells-Urine 0 SEEN /hpf (0-5); White Blood Cells 0 SEEN /hpf (0-5)
[2022-05-16 17:17] LABS: Color, Urine Yellow (Yellow); Glucose, Dipstick Normal (Normal); Ketone-Dipstick Negative (Negative); Leukocyte Esterase-Dipstick Negative /ul (Negative); Nitrite-Dipstick Negative (Negative); Occult Blood-Urine Negative /ul (Negative); Protein-Dipstick Negative (Negative); Specific Gravity, Urine 1.015 (1.002-1.030); Urine Bilirubin Dipstick Negative (Negative); Urine Clarity Clear (Clear); Urine Urobilinogen Normal (Normal)
[2022-05-16 18:24] LABS: Mucous, Urine 1+ /hpf (<or=2+); Squamous Epithelial Cells - UA 0-5 SEEN /hpf (5-10); Yeast-Urine RARE /hpf (None Seen)
[2022-05-16] MEDS: oxyCODONE 5 MG Tablet 10 MG PO (18:40)
[2022-05-16] MEDS: Metoprolol Tartrate 5 MG/5 ML Vial IV (18:40)
--- NOTE | 2022-05-16 20:49 | CT_ITS ---
INDICATION: History of intracranial bleed EXAMINATION: CT BRAIN - CT Head or Brain W/O Contrast Injection TECHNIQUE: Multiple axial images were obtained of the head without intravenous contrast. A radiation dose optimization technique was used for this scan. IV Contrast dosage and agent: None. COMPARISON: 05/13/2021; 06/17/2021 MRI FINDINGS: BRAIN PARENCHYMA: Trace residual left frontal lobe hypoattenuation in the area of prior parenchymal hemorrhage. No intra- or extra-axial hemorrhage. No evidence of acute infarct. No intracranial mass or mass effect. There is preservation of the short/white matter interface. Posterior fossa structures are unremarkable. CSF SPACES: Appropriate for age. No hydrocephalus. Basal cisterns are patent. CALVARIUM, SKULL BASE, PARANASAL SINUSES AND MASTOID AIR CELLS: Clear. No discrete lytic or blastic abnormalities. ORBITS: Both globes, extraocular muscles, optic nerves and retrobulbar fat appear unremarkable. ASPECTS Score for Acute Strokes: 10 CT/Brain/Head without Contrast IMPRESSION: No acute abnormal intracranial finding. Electronically Signed: Carlton Soto MD at 21:46 EST ,
[2022-05-16] MEDS: Pravastatin 40 MG Tablet PO (23:03)
[2022-05-17] VITALS (15 sets, daily range): BP systolic 95–121; BP diastolic 64–83; PULSE 73–109; RESP 16–18; TEMP 36.2–36.9; O2SAT 86–100
--- NOTE | 2022-05-17 00:12 | NURSING ---
Pt was unable to void since straight cathed last this afternoon nicole #16 F placed. Pt tolerated well emptied 200 ml usama urine.
[2022-05-17] MEDS: Lactated Ringers 1,000 ML 125 ML IV ×3 (04:17→22:40)
[2022-05-17] MEDS: Acetaminophen 500 MG Tablet 1000 MG PO ×3 (05:58→20:43)
[2022-05-17 06:27] LABS: Hematocrit 25.5 % (37-47); Hemoglobin 8.1 g/dL (12.0-15.0); Mean Corp Hgb Conc 31.8 g/dL (32-36); Mean Corpuscular Hgb 31.2 pg (27.0-32.0); Mean Corpuscular Volume 98.1 fL (81-99); Mean Platelet Vol. 9.7 fl (6.2-12.0); Platelet Count 122 K/mm3 (150-450); RBC Distribution Width CV 14.6 % (11.6-14.6); RBC Distribution Width SD 50.8 fl (35.1-43.9); White Blood Count 4.6 K/mm3 (4.4-11.0)
[2022-05-17] MEDS: Potassium Chloride Oral Tablet 20 MEQ PO (09:35)
[2022-05-17] MEDS: Ferrous Sulfate 325 MG Tablet PO ×2 (09:35→18:33)
[2022-05-17] MEDS: Calcium Carbonate 500 MG Tablet PO ×3 (09:35→17:07)
[2022-05-17] MEDS: Isosorbide Mononitrate 30 MG Tablet PO ×2 (09:36→20:43)
[2022-05-17] MEDS: Furosemide 40 MG Tablet PO (09:36)
[2022-05-17] MEDS: Enoxaparin 30 MG/0.3 ML Syringe SC (09:36)
[2022-05-17] MEDS: Pantoprazole Sodium 40 MG Tablet PO (09:37)
[2022-05-17] MEDS: Senna/Docusate Sodium 1 Tablet 2 TABLET PO ×2 (09:37→20:43)
[2022-05-17] MEDS: Cholecalciferol (VIT D3) 25 MCG TABLET (1,000 UNITS) PO (09:37)
[2022-05-17] MEDS: Lisinopril 40 MG Tablet PO (09:38)
[2022-05-17] MEDS: Metoprolol Tartrate 100 MG Tablet PO ×2 (09:39→20:43)
[2022-05-17] MEDS: oxyCODONE 5 MG Tablet PO ×2 (10:15→17:06)
--- NOTE | 2022-05-17 13:39 | PN.HOSP_ITS ---
Reason for Visit Reason for Visit: Diagnoses Acute posthemorrhagic anemia (05/12/22) Unspecified atrial fibrillation (05/12/22) Fracture of unspecified part of neck of right femur, initial encounter for closed fracture (05/12/22) Personal history of other diseases of the circulatory system (05/12/22) Objective Data Objective Data Vital Signs: Vital Signs Temp Pulse Resp BP Pulse Ox O2 Del Method O2 Flow Rate 98.5 F 109 H 16 121/83 H 96 Nasal Cannula 2 05/17/22 07:33 05/17/22 09:39 05/17/22 07:33 05/17/22 09:39 05/17/22 10:26 05/17/22 10:00 05/17/22 11:19 Oxygen Flow Rate (L/min) 2 Oxygen Delivery Method Nasal Cannula Weight: 165 lb 2.02 oz Body Mass Index (BMI) 34.2 Intake & Output: Intake and Output for Last 24 Hours 05/15/22 05/16/22 05/17/22 23:59 23:59 23:59 Intake Total 2860.00 / 3010.00 2620 / 2740 1231.67 / 1231.67 Output Total 1350 / 1550 400 / 400 Balance 2860.00 / 3010.00 1270 / 1190 831.67 / 831.67 Lab / Micro Data Result Diagrams: 05/17/22 05:50 05/15/22 05:45 Labs: Laboratory Results - last 24 hr 05/16/22 16:33: Urine Color Yellow, Urine Clarity Clear, Urine pH 6.0, Ur Specific [place] 1.015, Urine Protein Negative, Urine Glucose (UA) Normal, Urine Ketones Negative, Urine Occult Blood Negative, Urine Nitrite Negative, Urine Bilirubin Negative, Urine Urobilinogen Normal, Ur Leukocyte Esterase Negative, Urine RBC 0 SEEN, Urine WBC 0 SEEN, Ur Squamous Epith Cells 0-5 SEEN, Urine Bacteria 0 SEEN, Urine Mucus 1+, Urine Yeast RARE 05/17/22 05:50: WBC 4.6, RBC 2.60 L, Hgb 8.1 L, Hct 25.5 L, MCV 98.1, MCH 31.2, MCHC 31.8 L, RDW Std Deviation 50.8 H, RDW Coeff of Oralia 14.6, Plt Count 122 L, MPV 9.7 Radiography Diagnostic Testing: Radiology Impression Brain CT 05/16/22 20:49 IMPRESSION: No acute abnormal intracranial finding. Electronically Signed: Carlton Soto MD at 21:46 EST , Physical Exam Narrative Follow-up for acute intertrochanteric fracture of right femur complicated with acute blood loss anemia Patient has 6/10 right hip operative pain. As per nursing staff, she gets confused and disoriented with oxycodone high-dose therefore decreased to 2.5 to 5 mg for moderate to severe pain respectively. Physical exam General: Alert, Oriented x3, Cooperative, looks frail HEENT: Atraumatic, PERRLA, EOMI, Normocephalic Oral: Oral mucosa moist. No Gingival or Mucosal Lesions/ Ulcerations Neck: Supple, No JVD, Negative Carotid Bruits Lungs: Air entry diminished in bilateral lung bases. No crepitation/rhonchi Cardiovascular: Regular rate and rhythm, Normal S1, Normal S2, No murmurs Abdomen: Bowel Sounds Present, Soft, Non Tender, Non-Distended : No renal angle tenderness. No suprapubic tenderness. Extremities: No edema, Capillary Refill Less than 3 Seconds Skin: No rashes, No breakdown Musculoskeletal: Right hip surgical dressing is dry. Mild to moderate postoperative tenderness. No palpable hematoma or bruise. Neurological: Cranial nerves II-XII grossly intact, DTR 2+/4 and Symmetrical Psych/Mental Status: Flat affect, Assessment & Plan Assessment/Plan (1) Closed fracture of right hip: QUALIFIERS: Encounter type: initial encounter Qualified Code(s): S72.001A - Fracture of unspecified part of neck of right femur, initial encounter for closed fracture (2) History of atrial fibrillation: (3) Atrial fibrillation with RVR: PLAN: Plan Patient is a 76-year-old lady who slipped and fell. Imaging studies obtained on admission demonstrated acute intertrochanteric fracture of the right femur. Patient was also found to be in A-fib with RVR on admission admitted to a monitored bed with consultation placed orthopedic surgery 1. Acute intratrochanteric fracture involving the right femur ? Patient has been admitted to monitored bed managed with pain management, immobilization and consultation placed to orthopedic surgery. Case was apparently discussed with Dr. Canas by the emergency room physician. Patient perioperative risk was deemed to be below average risk however with patient developing A-fib with RVR patient was admitted to a monitored bed 05/17: Patient had intramedullary nailing done by Dr. Collins on 05/14/2022. Patient easily gets confused and disoriented with higher dose of oxycodone therefore dose decreased. Plan for SNF pending Worker's Compensation. 2. Perioperative A-fib with RVR ? Patient did receive metoprolol for rate control. Patient apparently did develop intracranial hemorrhage was previously on warfarin Her heart rate is controlled. 3. 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 - Blood pressure controlled, home medications continued with dose adjustment as needed 4. Acute anemia of blood loss with history of chronic anemia 05/13: Hemoglobin 8.1. Platelet count 122,000. On ferrous sulfate and ascorbic acid. Patient not symptomatic with anemia. If hemoglobin drops less than 7 g, will transfuse. 5. Dyslipidemia -Patient is on statin therapy, continued at home dose 6. Hypokalemia ? Corrected per protocol repeat potassium ordered for monitoring ? Potassium 3.6 on 05/15 7. DVT prophylaxis ? SCDs for now with plans to initiate chemoprophylaxis following patient surgery ? 05/15/2022 patient started on DVT prophylaxis with Lovenox 30 mg SC daily 8. Acute urinary retention Patient had Courtney catheterization on 05/16. Clear urine Total time of the visit including total time spent in counseling or coordination of care, (more than 50% of the total time, spent in obtaining medical information from nurses and other ancillary care providers,explaining to the patient about labs, imaging, diagnosis and management of active complex medical conditions), medical record review, review of labs and imaging is 38-minute Charges/Coding Visit Charges Inpatient E&M: 64546 Subs Hosp L2
[2022-05-17] MEDS: Pravastatin 40 MG Tablet PO (20:43)
[2022-05-18] VITALS (10 sets, daily range): BP systolic 101–116; BP diastolic 66–79; PULSE 93–112; RESP 16–20; TEMP 36.2–36.8; O2SAT 96–100
[2022-05-18] MEDS: Lactated Ringers 1,000 ML 125 ML IV ×3 (05:30→21:26)
[2022-05-18] MEDS: Acetaminophen 500 MG Tablet 1000 MG PO ×3 (05:30→21:26)
[2022-05-18 06:26] LABS: Absolute Lymphocyte Count 0.49 X10^3/uL (0.83-4.51); Absolute Neutrophil Count 3.1 X10^3/uL (2.0-7.7); Basophil# 0.01 X10^3/uL; Basophil% 0.2 % (0-1); Eosinophil# 0.29 X10^3/uL; Eosinophils% 6.4 % (0-5); Hematocrit 25.3 % (37-47); Hemoglobin 7.9 g/dL (12.0-15.0); Lymphocyte # 0.49 X10^3/ul (0.83-4.51); Lymphocyte % 10.9 % (19-41); Mean Corp Hgb Conc 31.2 g/dL (32-36); Mean Corpuscular Hgb 30.9 pg (27.0-32.0); Mean Corpuscular Volume 98.8 fL (81-99); Mean Platelet Vol. 9.7 fl (6.2-12.0); Monocyte% 13.3 % (0-10); NRBC Flagged by Analyzer 0 % (0-5); Neutrophil % 68.8 % (47-70); POSITIVE DIFFERENTIAL YES; Platelet Count 144 K/mm3 (150-450); RBC Distribution Width CV 14.7 % (11.6-14.6); RBC Distribution Width SD 51.8 fl (35.1-43.9); Red Blood Count 2.56 M/mm3 (4.2-5.4); White Blood Count 4.5 K/mm3 (4.4-11.0)
[2022-05-18 06:31] LABS: Differential Indicated SCAN CRITERIA MET
[2022-05-18 06:45] LABS: Anion Gap 5 (5-15); BUN 15 mg/dL (7-18); BUN/Creat Ratio 17.6 RATIO (10-20); Calcium,Total 8.5 mg/dL (8.5-10.1); Chloride 105 mmol/L (98-107); Creatinine, Serum 0.85 mg/dL (0.55-1.02); EST Glomerular Filtration Rate 69 mL/min (>60); Est Glom Filt Rate - Afr Amer 83 mL/min (>60); Estimated Creatinine Clearance 67.82 ml/min; Glucose 100 mg/dL (74-106); Potassium 3.9 mmol/L (3.5-5.1); Sodium Level 138 mmol/L (136-145)
[2022-05-18 06:55] LABS: Differential Comment SCANNED
--- NOTE | 2022-05-18 08:26 | PN.HOSP_ITS ---
Reason for Visit Reason for Visit: Diagnoses Acute posthemorrhagic anemia (05/12/22) Unspecified atrial fibrillation (05/12/22) Fracture of unspecified part of neck of right femur, initial encounter for closed fracture (05/12/22) Personal history of other diseases of the circulatory system (05/12/22) Subjective Subjective Follow-up for acute intertrochanteric right hip fracture. Patient has A-fib but not on anticoagulant because of intracerebral hemorrhage at 2 spots less than a year ago, about SeptemberOctober 2021 Objective Data Objective Data Vital Signs: Vital Signs Temp Pulse Resp BP Pulse Ox O2 Del Method O2 Flow Rate 98.2 F 93 16 114/75 100 Nasal Cannula 2 05/18/22 03:47 05/18/22 03:47 05/18/22 03:47 05/18/22 03:47 05/18/22 03:47 05/18/22 03:47 05/18/22 03:47 Oxygen Flow Rate (L/min) 2 Oxygen Delivery Method Nasal Cannula Weight: 168 lb 3.403 oz Body Mass Index (BMI) 34.2 Intake & Output: Intake and Output for Last 24 Hours 05/16/22 05/17/22 05/18/22 23:59 23:59 23:59 Intake Total 2620 / 2740 3337.09 / 3337.09 974.17 / 974.17 Output Total 1350 / 1550 1000 / 1000 150 / 150 Balance 1270 / 1190 2337.09 / 2337.09 824.17 / 824.17 Lab / Micro Data Result Diagrams: 05/18/22 05:30 05/18/22 05:30 Labs: Laboratory Results - last 24 hr 05/18/22 05:30: WBC 4.5, RBC 2.56 L, Hgb 7.9 L, Hct 25.3 L, MCV 98.8, MCH 30.9, MCHC 31.2 L, RDW Std Deviation 51.8 H, RDW Coeff of Oralia 14.7 H, Plt Count 144 L, MPV 9.7, Immature Gran % (Auto) 0.400, Neut % (Auto) 68.8, Lymph % (Auto) 10.9 L , Weston % (Auto) 13.3 H, Eos % (Auto) 6.4 H, Baso % (Auto) 0.2, Absolute Neuts (auto) 3.1, Absolute Lymphs (auto) 0.49 L, Nucleated RBC % 0, Differential Comment SCANNED 05/18/22 05:30: Sodium 138, Potassium 3.9, Chloride 105, Carbon Dioxide 28.0, Anion Gap 5, BUN 15, Creatinine 0.85, Estim Creat Clear Calc 67.82, Est GFR (MDRD) Af Amer 83, Est GFR (MDRD) Non-Af 69, BUN/Creatinine Ratio 17.6, Glucose 100, Calcium 8.5 Physical Exam Narrative Follow-up for acute intertrochanteric fracture of right femur complicated with acute blood loss anemia Patient has 2-3/10 right hip operative pain. Awake and alert. Physical exam General: Alert, Oriented x3, Cooperative, looks frail HEENT: Atraumatic, PERRLA, EOMI, Normocephalic Oral: Oral mucosa moist. No Gingival or Mucosal Lesions/ Ulcerations Neck: Supple, No JVD, Negative Carotid Bruits Lungs: Air entry diminished in bilateral lung bases. No crepitation/rhonchi Cardiovascular: A-fib, irregular rate and rhythm, Normal S1, Normal S2, No murmurs Abdomen: Bowel Sounds Present, Soft, Non Tender, Non-Distended : No renal angle tenderness. No suprapubic tenderness. Extremities: No edema, Capillary Refill Less than 3 Seconds Skin: No rashes, No breakdown Musculoskeletal: Right hip surgical dressing is dry. Mild tenderness. No palpable hematoma or bruise. Neurological: Cranial nerves II-XII grossly intact, DTR 2+/4 and Symmetrical Psych/Mental Status: Flat affect, Assessment & Plan Assessment/Plan (1) Closed fracture of right hip: QUALIFIERS: Encounter type: initial encounter Qualified Code(s): S72.001A - Fracture of unspecified part of neck of right femur, initial encounter for closed fracture (2) History of atrial fibrillation: (3) Atrial fibrillation with RVR: PLAN: Plan Patient is a 76-year-old lady who slipped and fell. Imaging studies obtained on admission demonstrated acute intertrochanteric fracture of the right femur. Patient was also found to be in A-fib with RVR on admission admitted to a monitored bed with consultation placed orthopedic surgery 1. Acute intratrochanteric fracture involving the right femur ? Patient has been admitted to monitored bed managed with pain management, immobilization and consultation placed to orthopedic surgery. Case was apparently discussed with Dr. Canas by the emergency room physician. Patient perioperative risk was deemed to be below average risk however with patient developing A-fib with RVR patient was admitted to a monitored bed 05/17: Patient had intramedullary nailing done by Dr. Canas on 05/14/2022. Patient easily gets confused and disoriented with higher dose of oxycodone therefore dose decreased. Plan for SNF pending Worker's Compensation. 05/18: Patient is awake and alert after reduction of oxycodone dose. PT and OT. 2. Perioperative A-fib with RVR ? Patient did receive metoprolol for rate control. Her heart rate is controlled. 05/18: Patient has history of A-fib in the past and not on warfarin because of intracranial hemorrhage. 3. 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 - Blood pressure controlled, home medications continued with dose adjustment as needed 4. Acute anemia of blood loss with history of chronic anemia 05/13: Hemoglobin 8.1. Platelet count 122,000. On ferrous sulfate and ascorbic acid. Patient not symptomatic with anemia. If hemoglobin drops less than 7 g, will transfuse. 5. Dyslipidemia -Patient is on statin therapy, continued at home dose 6. Hypokalemia ? Corrected per protocol repeat potassium ordered for monitoring ? Potassium 3.6 on 05/15 7. DVT prophylaxis ? SCDs for now with plans to initiate chemoprophylaxis following patient surgery ? 05/15/2022 patient started on DVT prophylaxis with Lovenox 30 mg SC daily 8. Acute urinary retention Patient had Courtney catheterization on 05/16. Clear urine Charges/Coding Visit Charges Inpatient E&M: 73911 Subs Hosp L2
[2022-05-18] MEDS: Senna/Docusate Sodium 1 Tablet 2 TABLET PO ×2 (08:45→21:26)
[2022-05-18] MEDS: Potassium Chloride Oral Tablet 20 MEQ PO (08:46)
[2022-05-18] MEDS: Isosorbide Mononitrate 30 MG Tablet PO ×2 (08:46→21:25)
[2022-05-18] MEDS: Calcium Carbonate 500 MG Tablet PO ×3 (08:46→16:52)
[2022-05-18] MEDS: Ferrous Sulfate 325 MG Tablet PO ×2 (08:46→16:52)
[2022-05-18] MEDS: Metoprolol Tartrate 100 MG Tablet PO ×2 (08:47→21:25)
[2022-05-18] MEDS: Furosemide 40 MG Tablet PO (08:48)
[2022-05-18] MEDS: Pantoprazole Sodium 40 MG Tablet PO (08:48)
[2022-05-18] MEDS: Lisinopril 40 MG Tablet PO (08:48)
[2022-05-18] MEDS: Cholecalciferol (VIT D3) 25 MCG TABLET (1,000 UNITS) PO (08:49)
[2022-05-18] MEDS: Enoxaparin 30 MG/0.3 ML Syringe SC (08:49)
[2022-05-18] MEDS: Tamsulosin HCl 0.4 MG Capsule PO (16:55)
[2022-05-18] MEDS: dilTIAZem 60 MG Tablet PO (17:45)
[2022-05-18] MEDS: Pravastatin 40 MG Tablet PO (21:23)
[2022-05-18] MEDS: oxyCODONE 5 MG Tablet PO (21:25)
[2022-05-19] VITALS (14 sets, daily range): BP systolic 82–116; BP diastolic 53–65; PULSE 37–99; RESP 16–20; TEMP 36.3–36.9; O2SAT 95–100
[2022-05-19] MEDS: dilTIAZem 60 MG Tablet PO (00:13)
[2022-05-19] MEDS: Menthol/Lanolin/Calamine/Znox 113 GM Tube 1 APPLIC TOPICAL ×3 (00:14→21:22)
[2022-05-19] MEDS: Acetaminophen 500 MG Tablet 1000 MG PO ×3 (05:29→21:27)
[2022-05-19] MEDS: Lactated Ringers 1,000 ML 125 ML IV ×3 (05:29→21:27)
[2022-05-19 06:28] LABS: Absolute Lymphocyte Count 0.46 X10^3/uL (0.83-4.51); Absolute Neutrophil Count 3.1 X10^3/uL (2.0-7.7); Basophil# 0.02 X10^3/uL; Basophil% 0.5 % (0-1); Eosinophil# 0.24 X10^3/uL; Eosinophils% 5.5 % (0-5); Hematocrit 25.4 % (37-47); Hemoglobin 7.5 g/dL (12.0-15.0); Lymphocyte # 0.46 X10^3/ul (0.83-4.51); Lymphocyte % 10.6 % (19-41); Mean Corp Hgb Conc 29.5 g/dL (32-36); Mean Corpuscular Hgb 30.2 pg (27.0-32.0); Mean Corpuscular Volume 102.4 fL (81-99); Mean Platelet Vol. 9.9 fl (6.2-12.0); Monocyte# 0.46 X10^3/uL; Monocyte% 10.6 % (0-10); NRBC Flagged by Analyzer 0.9 % (0-5); Neutrophil # 3.14 X10^3/uL (2.7-7.7); Neutrophil % 72.3 % (47-70); POSITIVE COUNT YES; POSITIVE DIFFERENTIAL YES; Platelet Count 141 K/mm3 (150-450); RBC Distribution Width CV 14.6 % (11.6-14.6); RBC Distribution Width SD 53.9 fl (35.1-43.9); Red Blood Count 2.48 M/mm3 (4.2-5.4); White Blood Count 4.3 K/mm3 (4.4-11.0)
[2022-05-19 06:50] LABS: Anion Gap 5 (5-15); BUN 12 mg/dL (7-18); BUN/Creat Ratio 15.6 RATIO (10-20); Calcium,Total 8.5 mg/dL (8.5-10.1); Chloride 105 mmol/L (98-107); Creatinine, Serum 0.77 mg/dL (0.55-1.02); EST Glomerular Filtration Rate 77 mL/min (>60); Est Glom Filt Rate - Afr Amer 94 mL/min (>60); Glucose 103 mg/dL (74-106); Potassium 3.8 mmol/L (3.5-5.1); Sodium Level 140 mmol/L (136-145)
[2022-05-19 06:59] LABS: Differential Indicated SCAN CRITERIA MET
[2022-05-19 07:09] LABS: Anisocytosis 1+; Macrocytosis 1+
[2022-05-19 07:10] LABS: Hypochromasia 2+
--- NOTE | 2022-05-19 08:47 | CASEMGMT ---
ELIUD received an e-mail from Tyesha with [employer]. Tyesha is still waiting on approval to send patient to Inpatient Rehab. Tyesha also said she has not received any clinicals from and asked that they be e-mailed to her. ELIUD sent a message to person handling this patient with Teysha's e-mail. Plan: [facility] Inpatient Rehab Unit pending authorization. Ginger MATT
--- NOTE | 2022-05-19 09:01 | PN.HOSP_ITS ---
Reason for Visit Reason for Visit: Diagnoses Acute posthemorrhagic anemia (05/12/22) Unspecified atrial fibrillation (05/12/22) Fracture of unspecified part of neck of right femur, initial encounter for closed fracture (05/12/22) Personal history of other diseases of the circulatory system (05/12/22) Objective Data Objective Data Vital Signs: Vital Signs Temp Pulse Resp BP Pulse Ox O2 Del Method O2 Flow Rate 97.6 F L 72 20 H 91/57 L 99 Nasal Cannula 2 05/19/22 06:53 05/19/22 06:53 05/19/22 06:53 05/19/22 06:53 05/19/22 07:35 05/19/22 07:35 05/19/22 07:35 Oxygen Flow Rate (L/min) 2 Oxygen Delivery Method Nasal Cannula Weight: 170 lb 6.677 oz Body Mass Index (BMI) 34.2 Intake & Output: Intake and Output for Last 24 Hours 05/17/22 05/18/22 05/19/22 23:59 23:59 23:59 Intake Total 3337.09 / 3337.09 3400.00 / 3640.00 1360 / 1360 Output Total 1000 / 1000 1100 / 1450 450 / 450 Balance 2337.09 / 2337.09 2300.00 / 2190.00 910 / 910 Lab / Micro Data Result Diagrams: 05/19/22 04:56 05/19/22 04:56 Labs: Laboratory Results - last 24 hr 05/19/22 04:56: WBC 4.3 L, RBC 2.48 L, Hgb 7.5 L, Hct 25.4 L, MCV 102.4 H, MCH 30.2, MCHC 29.5 L D, RDW Std Deviation 53.9 H, RDW Coeff of Oralia 14.6, Plt Count 141 L, MPV 9.9, Immature Gran % (Auto) 0.500, Neut % (Auto) 72.3 H, Lymph % (Auto) 10.6 L, Duc[place]ne % (Auto) 10.6 H, Eos % (Auto) 5.5 H, Baso % (Auto) 0.5, Absolute Neuts (auto) 3.1, Absolute Lymphs (auto) 0.46 L, Nucleated RBC % 0.9, Diff Path Review May foll, Hypochromasia 2+, Anisocytosis 1+, Macrocytosis 1+ 05/19/22 04:56: Sodium 140, Potassium 3.8, Chloride 105, Carbon Dioxide 30.0, Anion Gap 5, BUN 12, Creatinine 0.77, Estim Creat Clear Calc 58.40, Est GFR (MDRD) Af Amer 94, Est GFR (MDRD) Non-Af 77, BUN/Creatinine Ratio 15.6, Glucose 103, Calcium 8.5 Micro: Microbiology 05/16/22 16:33 Urine, Random Urine Culture - Final Culture exhibits no growth. Physical Exam Narrative Follow-up for acute intertrochanteric fracture of right femur complicated with acute blood loss anemia Patient is stood up and walked few steps with help of physical therapist outside the room. Patient had A-fib with RVR last evening and started on Cardizem. Physical exam General: Alert, Oriented x3, Cooperative, looks frail HEENT: Atraumatic, PERRLA, EOMI, Normocephalic Oral: Oral mucosa moist. No Gingival or Mucosal Lesions/ Ulcerations Neck: Supple, No JVD, Negative Carotid Bruits Lungs: Air entry diminished in bilateral lung bases. No crepitation/rhonchi Cardiovascular: A-fib, irregular rate and rhythm, Normal S1, Normal S2, No murmurs Abdomen: Bowel Sounds Present, Soft, Non Tender, Non-Distended : No renal angle tenderness. No suprapubic tenderness. Extremities: No edema, Capillary Refill Less than 3 Seconds Skin: No rashes, No breakdown Musculoskeletal: Right hip surgical dressing is dry. Mild tenderness. No palpable hematoma or bruise. Neurological: Cranial nerves II-XII grossly intact, DTR 2+/4 and Symmetrical Psych/Mental Status: Flat affect, Assessment & Plan Assessment/Plan (1) Closed fracture of right hip: QUALIFIERS: Encounter type: initial encounter Qualified Code(s): S72.001A - Fracture of unspecified part of neck of right femur, initial encounter for closed fracture (2) History of atrial fibrillation: (3) Atrial fibrillation with RVR: PLAN: Plan Patient is a 76-year-old lady who slipped and fell. Imaging studies obtained on admission demonstrated acute intertrochanteric fracture of the right femur. Patient was also found to be in A-fib with RVR on admission admitted to a monitored bed with consultation placed orthopedic surgery 1. Acute intratrochanteric fracture involving the right femur ? Patient has been admitted to monitored bed managed with pain management, immobilization and consultation placed to orthopedic surgery. Case was apparently discussed with Dr. Canas by the emergency room physician. Patient perioperative risk was deemed to be below average risk however with patient developing A-fib with RVR patient was admitted to a monitored bed 05/17: Patient had intramedullary nailing done by Dr. Canas on 05/14/2022. Patient easily gets confused and disoriented with higher dose of oxycodone therefore dose decreased. Plan for SNF pending Worker's Compensation. 05/18: Patient is awake and alert after reduction of oxycodone dose. PT and OT. 2. Perioperative A-fib with RVR ? Patient did receive metoprolol for rate control. Her heart rate is controlled. 05/18: Patient has history of A-fib in the past and not on warfarin because of intracranial hemorrhage. 05/19: Patient had RVR yesterday and was started on Cardizem 60 mg every 6 hourly as she already on maximum dose of metoprolol 100 mg twice daily. Changed to Cardizem CD, 120 mg twice daily. Patient also has low BP running in 90s to 100s. 3. 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 - Blood pressure controlled, home medications continued with dose adjustment as needed 4. Acute anemia of blood loss with history of chronic anemia 05/13: Hemoglobin 8.1. Platelet count 122,000. On ferrous sulfate and ascorbic acid. Patient not symptomatic with anemia. If hemoglobin drops less than 7 g, will transfuse. 05/19: Hemoglobin dropped to 7.5 g. Stool for occult blood ordered. 5. Dyslipidemia -Patient is on statin therapy, continued at home dose 6. Hypokalemia ? Corrected per protocol repeat potassium ordered for monitoring ? Potassium 3.6 on 05/15 7. DVT prophylaxis ? SCDs for now with plans to initiate chemoprophylaxis following patient surgery ? 05/15/2022 patient started on DVT prophylaxis with Lovenox 30 mg SC daily 05/19: Lovenox discontinued as hemoglobin is dropping to 7.5. 8. Acute urinary retention Patient had Courtney catheterization on 05/16. Clear urine DC Courtney catheterization. Charges/Coding Visit Charges Inpatient E&M: 33413 Subs Hosp L2
--- NOTE | 2022-05-19 09:15 | TREXTCAR_ITS ---
Diet Diet Order/Speech Therapy: 05/16/22 07:21 Diet: Regular - General Is pt able to select menu?: Yes Wound(s) abdomen: Wound Type: Puncture RIGHT UPPER LEG: Wound Type: Surgical Incision Right mid thigh: Wound Type: Surgical Incision right lower leg: Wound Type: Surgical Incision bilateral lower buttocks: Wound Type: open blisters Therapies Weight Bearing: Non weight bearing Problem/Diagnosis (1) Closed fracture of right hip: Status: Acute Code(s): S72.001A - Fracture of unspecified part of neck of right femur, initial encounter for closed fracture (2) History of atrial fibrillation: Status: Acute Code(s): Z86.79 - Personal history of other diseases of the circulatory system (3) Atrial fibrillation with RVR: Status: Acute Code(s): I48.91 - Unspecified atrial fibrillation Plan Patient is a 76-year-old lady who slipped and fell. Imaging studies obtained on admission demonstrated acute intertrochanteric fracture of the right femur. Patient was also found to be in A-fib with RVR on admission admitted to a monitored bed with consultation placed orthopedic surgery 1. Acute intratrochanteric fracture involving the right femur ? Patient has been admitted to monitored bed managed with pain management, immobilization and consultation placed to orthopedic surgery. Case was apparen tly discussed with Dr. Canas by the emergency room physician. Patient perioperative risk was deemed to be below average risk however with patient developing A-fib with RVR patient was admitted to a monitored bed 05/17: Patient had intramedullary nailing done by Dr. Canas on 05/14/2022. Patient easily gets confused and disoriented with higher dose of oxycodone therefore dose decreased. Plan for SNF pending Worker's Compensation. 05/18: Patient is awake and alert after reduction of oxycodone dose. PT and OT. 2. Perioperative A-fib with RVR ? Patient did receive metoprolol for rate control. Her heart rate is controlled. 05/18: Patient has history of A-fib in the past and not on warfarin because of intracranial hemorrhage. 05/19: Patient had RVR yesterday and was started on Cardizem 60 mg every 6 hourly as she already on maximum dose of metoprolol 100 mg twice daily. Changed to Cardizem CD, 120 mg twice daily. Patient also has low BP running in 90s to 100s. 3. 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 - Blood pressure controlled, home medications continued with dose adjustment as needed 4. Acute anemia of blood loss with history of chronic anemia 05/13: Hemoglobin 8.1. Platelet count 122,000. On ferrous sulfate and ascorbic acid. Patient not symptomatic with anemia. If hemoglobin drops less than 7 g, will transfuse. 5. Dyslipidemia -Patient is on statin therapy, continued at home dose 6. Hypokalemia ? Corrected per protocol repeat potassium ordered for monitoring ? Potassium 3.6 on 05/15 7. DVT prophylaxis ? SCDs for now with plans to initiate chemoprophylaxis following patient surgery ? 05/15/2022 patient started on DVT prophylaxis with Lovenox 30 mg SC daily 8. Acute urinary retention Patient had Courtney catheterization on 05/16. Clear urine Allergies/Procedures Done in Hospital Allergies piroxicam Allergy (Verified 05/12/22 21:00) CAUSES BLEEDING ULCER BLEEDING ULCER AFTER ONE CAPSULE adhesive tape Adverse Reaction (Verified 05/12/22 21:00) Rash/BLISTERS Discharge Plan Admission Admit Date/Time: 05/12/22 22:29 Attending Provider: Kalen Morris Primary Care Provider: Cassius Monaco Chi Consulting Providers: Cosmo Patel ; Rancho Canas ; Momo Wilson Instructions Additional Instructions / Restrictions: Right Hip Discharge instructions: Dry sterile dressing changes daily. Okay to shower postoperative day #4 if no drainage. No tub soaks. Weightbearing as tolerated right lower extremity. Discharge Orders/Prescriptions Prescriptions: No Action ergocalciferol (vitamin D2) 1,000 unit tablet 1,000 unit tablet 1 tab PO DAILY ferrous sulfate [Iron (ferrous sulfate)] 325 mg (65 mg iron) tablet 325 mg PO BID omeprazole 40 mg capsule,delayed release(DR/EC) 40 mg PO DAILY acetaminophen 500 mg Tablet 1,000 mg PO Q6 PRN (Reason: pain) Qty: 1 0RF isosorbide mononitrate 30 mg tablet extended release 24 hr 30 mg PO BID lisinopril 40 mg tablet 40 mg PO DAILY oxycodone 5 mg Tablet 5 mg PO Q4H PRN PRN (Reason: Pain Score 4-10) 5 Days Qty: 15 0RF potassium chloride 20 mEq tablet extended release 20 meq PO DAILY Qty: 90 3RF furosemide 40 mg tablet 40 mg PO DAILY Qty: 90 3RF pravastatin 40 mg tablet 40 mg PO QHS Qty: 90 3RF Hold Instructions: Leg weakness metoprolol tartrate 100 mg tablet 100 mg PO BID Qty: 180 3RF Referrals / Follow Up: Rancho Canas DO [Med Staff - Active Staff] - 05/28/22 Cassius Monaco Chi, MD [Primary Care Provider] - (1) Closed fracture of right hip Qualifiers: Encounter type: initial encounter Qualified Code(s): S72.001A - Fracture of unspecified part of neck of right femur, initial encounter for closed fracture
[2022-05-19] MEDS: Ferrous Sulfate 325 MG Tablet PO ×2 (10:02→17:46)
[2022-05-19] MEDS: Potassium Chloride Oral Tablet 20 MEQ PO (10:02)
[2022-05-19] MEDS: Isosorbide Mononitrate 30 MG Tablet PO ×2 (10:03→21:24)
[2022-05-19] MEDS: Calcium Carbonate 500 MG Tablet PO ×3 (10:03→17:45)
[2022-05-19] MEDS: Metoprolol Tartrate 100 MG Tablet PO ×2 (10:04→21:23)
[2022-05-19] MEDS: Pantoprazole Sodium 40 MG Tablet PO ×2 (10:04→21:26)
[2022-05-19] MEDS: Furosemide 40 MG Tablet PO (10:05)
[2022-05-19] MEDS: Cholecalciferol (VIT D3) 25 MCG TABLET (1,000 UNITS) PO (10:05)
[2022-05-19] MEDS: Lisinopril 40 MG Tablet PO (10:05)
[2022-05-19] MEDS: Enoxaparin 30 MG/0.3 ML Syringe SC (10:06)
[2022-05-19] MEDS: dilTIAZem CD 120 MG Capsule PO ×2 (10:12→21:23)
--- NOTE | 2022-05-19 10:17 | CASEMGMT ---
SW spoke with patient per her request. Patient said she wants to go to TCU as she has been there before. SW let patient know that TCU does not take Worker's Comp that is why she is set to go to Inpatient Rehab which is also here at [facility]. Patient verbalized understanding and agreement with this plan. SW told patient once she is approved she will go over. Plan: [facility] 4th floor Rehab Unit pending approval. Ginger MATT
[2022-05-19 13:03] LABS: Pathologist Review Reviewed
[2022-05-19] MEDS: oxyCODONE 5 MG Tablet PO ×2 (13:30→21:29)
[2022-05-19] MEDS: Tamsulosin HCl 0.4 MG Capsule PO (17:45)
[2022-05-19] MEDS: Pravastatin 40 MG Tablet PO (21:25)
[2022-05-19] MEDS: Senna/Docusate Sodium 1 Tablet 2 TABLET PO (21:26)
[2022-05-20] VITALS (10 sets, daily range): BP systolic 82–113; BP diastolic 41–71; PULSE 73–80; RESP 16–20; TEMP 36.4–37.1; O2SAT 94–100
[2022-05-20] MEDS: Acetaminophen 500 MG Tablet 1000 MG PO ×2 (05:54→13:24)
[2022-05-20] MEDS: Lactated Ringers 1,000 ML 125 ML IV (05:55)
[2022-05-20 06:14] LABS: Absolute Lymphocyte Count 0.48 X10^3/uL (0.83-4.51); Basophil# 0.01 X10^3/uL; Basophil% 0.2 % (0-1); Eosinophil# 0.22 X10^3/uL; Eosinophils% 5.3 % (0-5); Hematocrit 27.5 % (37-47); Hemoglobin 7.7 g/dL (12.0-15.0); Lymphocyte # 0.48 X10^3/ul (0.83-4.51); Lymphocyte % 11.6 % (19-41); Mean Corpuscular Hgb 30.4 pg (27.0-32.0); Mean Corpuscular Volume 108.7 fL (81-99); Mean Platelet Vol. 9.7 fl (6.2-12.0); Monocyte# 0.44 X10^3/uL; Monocyte% 10.6 % (0-10); NRBC Flagged by Analyzer 0.7 % (0-5); Neutrophil # 2.96 X10^3/uL (2.7-7.7); Neutrophil % 71.3 % (47-70); POSITIVE COUNT YES; POSITIVE DIFFERENTIAL YES; Platelet Count 160 K/mm3 (150-450); RBC Distribution Width CV 15.2 % (11.6-14.6); RBC Distribution Width SD 58.4 fl (35.1-43.9); RET-HE 32.1 pg (30-35); Red Blood Count 2.53 M/mm3 (4.2-5.4); Reticulocyte Count 3.86 % (0.5-1.5); White Blood Count 4.2 K/mm3 (4.4-11.0)
[2022-05-20 06:25] LABS: Differential Indicated SCAN CRITERIA MET
[2022-05-20 06:31] LABS: Anisocytosis 1+; Differential Comment SCANNED; Macrocytosis 1+; Ovalocyte RARE
[2022-05-20 06:51] LABS: Ferritin 83 ng/mL (8-252); Iron 46 ug/dL (50-170); Iron Binding Capacity,Total 358 ug/dL (250-450); PERCENT IRON SATURATION 12.8 % (15.0-55.0)
[2022-05-20] MEDS: Cholecalciferol (VIT D3) 25 MCG TABLET (1,000 UNITS) PO (09:00)
[2022-05-20] MEDS: Pantoprazole Sodium 40 MG Tablet PO (09:00)
[2022-05-20] MEDS: Lisinopril 40 MG Tablet PO (09:00)
[2022-05-20] MEDS: dilTIAZem CD 120 MG Capsule PO (09:00)
[2022-05-20] MEDS: Furosemide 40 MG Tablet PO (09:00)
[2022-05-20] MEDS: Menthol/Lanolin/Calamine/Znox 113 GM Tube 1 APPLIC TOPICAL (09:01)
[2022-05-20] MEDS: Metoprolol Tartrate 100 MG Tablet PO (09:01)
[2022-05-20] MEDS: Calcium Carbonate 500 MG Tablet PO ×2 (09:01→12:55)
[2022-05-20] MEDS: Isosorbide Mononitrate 30 MG Tablet PO (09:01)
[2022-05-20] MEDS: Potassium Chloride Oral Tablet 20 MEQ PO (09:01)
[2022-05-20] MEDS: oxyCODONE 5 MG Tablet PO ×2 (09:09→13:32)
--- NOTE | 2022-05-20 09:59 | DCINST_ITS ---
Discharge Instructions Diet Discharge Diet: No restrictions Activity Discharge Activity: Return to Normal Activity Weight Bearing Status: Weight bearing as tolerated Dressing / Incision Call your doctor if you observe: Fever of 101 or Higher, Coldness, Increased Pain, Numbness or Tingling, Change in Color, Inability to urinate, Inability to have a bowel movement, Using more than 1 pad per hour, Shortness of breath, Dizziness, Fainting spells, Swelling in the ankles, Chest pain, Prolonged hiccupping, Increased palpitations (irregular heartbeat) and Calf discomfort Follow Up Care When: IN 2 WEEKS Test Results: Test results from this visit will be discussed in further detail at your follow- up appointment, if applicable. Discharge Plan Admission Admit Date/Time: 05/12/22 22:29 Primary Reason for Your Visit: Acute right intertrochanteric fracture Attending Provider: Kalen Morris Primary Care Provider: Cassius Monaco Chi Consulting Providers: Cosmo Patel ; Rancho Canas ; Momo Wilson Instructions Additional Instructions / Restrictions: Right Hip Discharge instructions: Dry sterile dressing changes daily. Okay to shower postoperative day #4 if no drainage. No tub soaks. Weightbearing as tolerated right lower extremity. Hold Lasix if systolic blood pressure less than 120 mmHg Consider low-dose anticoagulant, NOAC Eliquis 2.5 mg twice daily if hemoglobin stays above 8 g% Discharge Orders/Prescriptions Prescriptions: New acetaminophen 500 mg Tablet 1,000 mg PO Q8 Qty: 0 0RF isosorbide mononitrate 30 mg Tablet Extended Release 24 Hr 30 mg PO DAILY Qty: 0 0RF sennosides-docusate sodium [Stool Softener-Stimulant Laxat] 8.6-50 mg Tablet 2 tab PO BID Qty: 0 0RF tamsulosin 0.4 mg Capsule 0.4 mg PO DAILY@1730 Qty: 0 0RF pantoprazole 40 mg Tablet,Delayed Release (Dr/Ec) 40 mg PO BID Qty: 0 0RF ferrous sulfate [FeroSul] 325 mg (65 mg iron) Tablet 325 mg PO DAILY Qty: 0 0RF Rx Instructions: for 3 months calcium carbonate 200 mg calcium (500 mg) Tablet,Chewable 500 mg PO TIDCM Qty: 0 0RF diltiazem HCl 120 mg Capsule,Extended Release 24hr 120 mg PO Q12 Qty: 0 0RF Rx Instructions: Hold for heart less than 60 or systolic blood pressure less than 90 mmHg. lisinopril 40 mg Tablet 10 mg PO DAILY Qty: 0 0RF Rx Instructions: Hold for SBP less than 130 mmHg Continued ergocalciferol (vitamin D2) 1,000 unit tablet 1,000 unit tablet 1 tab PO DAILY potassium chloride 20 mEq tablet extended release 20 meq PO DAILY Qty: 90 3RF furosemide 40 mg tablet 40 mg PO DAILY Qty: 90 3RF pravastatin 40 mg tablet 40 mg PO QHS Qty: 90 3RF Hold Instructions: Leg weakness metoprolol tartrate 100 mg tablet 100 mg PO BID Qty: 180 3RF Changed oxycodone 5 mg Tablet 2.5 mg PO Q4H PRN PRN (Reason: Pain Score 4-10) 5 Days Qty: 15 0RF Rx Instructions: 2.5 mg for moderate pain 4-6 and 5 mg for severe pain 7-10. Discontinued ferrous sulfate [Iron (ferrous sulfate)] 325 mg (65 mg iron) tablet 325 mg PO BID omeprazole 40 mg capsule,delayed release(DR/EC) 40 mg PO DAILY acetaminophen 500 mg Tablet 1,000 mg PO Q6 PRN (Reason: pain) Qty: 1 0RF isosorbide mononitrate 30 mg tablet extended release 24 hr 30 mg PO BID lisinopril 40 mg tablet 40 mg PO DAILY Referrals / Follow Up: David Sutherland MD [Med Staff - Active Staff] - Within 2 Weeks (acute retention of urine on Flomax. Courtney catheter discontinued) Rancho Canas DO [Med Staff - Active Staff] - 05/28/22 FriendJluis DO [Med Staff - Active Staff] - In 1 Week (for severe anemia and FOBT positive) Cassius Monaco Chi, MD [Primary Care Provider] - Disposition Disposition (needs filled in before D/C Order can be placed): Inpatient Rehab Unit/Facility
--- NOTE | 2022-05-20 10:37 | CASEMGMT ---
ELIUD received an e-mail from Tyesha with [employer]. Patient was approved for Acute Inpatient Rehab Unit. SW also received the approved C9 form. ELIUD notified Lizzette in Rehab. ELIUD also notified patient and her RN. ELIUD will notify physician. Plan: [facility] 4th floor Rehab Unit. Ginger MATT
[2022-05-20] MEDS: Ferrous Sulfate 325 MG Tablet PO (11:30)
--- NOTE | 2022-05-20 11:44 | DS.PCM_ITS ---
Providers Date of Admission: 05/12/22 Date of Discharge: 05/20/22 Primary Care Physician: Dr. Cassius Monaco MD Consultations 05/13/22 00:14 Consult: Orthopedics Routine Consulting Provider: [place] Canas Reason for Consult: Acute intratrochanteric fracture of the right femur EMERGENT Consult: No MD Notified: Yes Date Notified: 05/12/22 Time Notified: 22:40 Method of Notification: ED Physician Initiated Reason For Visit: ACUTE INTRATRACHANTERIC FRACTURE OF THE RT FEMUR Diagnosis Discharge Diagnosis (1) Closed fracture of right hip: Status: Acute Code(s): S72.001A - Fracture of unspecified part of neck of right femur, initial encounter for closed fracture Qualifiers: Encounter type: initial encounter Qualified Code(s): S72.001A - Fracture of unspecified part of neck of right femur, initial encounter for closed fracture (2) History of atrial fibrillation: Status: Acute Code(s): Z86.79 - Personal history of other diseases of the circulatory system (3) Atrial fibrillation with RVR: Status: Acute Code(s): I48.91 - Unspecified atrial fibrillation Medications at Discharge Home Medications potassium chloride 20 mEq tablet,extended release 20 meq PO DAILY supplement #90 tabs 01/13/20 ergocalciferol (vitamin D2) 1,000 unit tablet 1 tab PO DAILY Check with primary doctor 05/28/20 furosemide 40 mg tablet 40 mg PO DAILY #90 tabs 07/22/21 pravastatin 40 mg tablet 40 mg PO QHS Check with primary doctor #90 tabs 09/30/21 metoprolol tartrate 100 mg tablet 100 mg PO BID #180 tabs 03/24/22 acetaminophen 500 mg tablet 1,000 mg PO Q8 #0 tabs 05/20/22 calcium carbonate 200 mg calcium (500 mg) chewable tablet 500 mg PO TIDCM #0 tabs 05/20/22 diltiazem HCl 120 mg capsule,extended release 24 hr 120 mg PO Q12 #0 caps 05/20/22 ferrous sulfate 325 mg (65 mg iron) tablet (FeroSul) 325 mg PO DAILY #0 tabs 05/20/22 isosorbide mononitrate 30 mg tablet,extended release 24 hr 30 mg PO DAILY #0 tabs 05/20/22 lisinopril 40 mg tablet 10 mg PO DAILY #0 tabs 05/20/22 oxycodone 5 mg tablet 2.5 mg PO Q4H PRN PRN Pain Score 4-10 5 days #15 tabs 05/20/22 pantoprazole 40 mg tablet,delayed release 40 mg PO BID #0 tabs 05/20/22 sennosides 8.6 mg-docusate sodium 50 mg tablet (Stool Softener-Stimulant Laxative) 2 tab PO BID #0 tabs 05/20/22 tamsulosin 0.4 mg capsule 0.4 mg PO DAILY@1730 #0 caps 05/20/22 Hospital Course Summary of Care Provided Hospital Course: Patient is a 76-year-old lady who slipped and fell.? Imaging studies obtained on admission demonstrated acute intertrochanteric fracture of the right femur.? Patient was also found to be in A-fib with RVR on admission admitted to a monitored bed with consultation placed orthopedic surgery 1.? Acute intratrochanteric fracture involving the right femur ? Patient has been admitted to monitored bed managed with pain management, immobilization and consultation placed to orthopedic surgery.? Case was apparently discussed with Dr. Canas by the emergency room physician.? Patient perioperative risk was deemed to be below average risk however with patient developing A-fib with RVR patient was admitted to a monitored bed 05/17: Patient had intramedullary nailing done by Dr. Canas on 05/14/2022.? Patient easily gets confused and disoriented with higher dose of oxycodone therefore dose decreased.? Plan for SNF pending Worker's Compensation. 05/18: Patient is awake and alert after reduction of oxycodone dose.? PT and OT. 05/20: Patient is going to acute rehab fourth floor. Continue low-dose oxycodone for moderate to severe pain. 2.? Perioperative A-fib with RVR ? Patient did receive metoprolol for rate control.? Her heart rate is controlled. 05/18: Patient has history of A-fib in the past and not on warfarin because of intracranial hemorrhage. 05/19: Patient had RVR yesterday and was started on Cardizem 60 mg every 6 hourly as she already on maximum dose of metoprolol 100 mg twice daily.? Changed to Cardizem CD, 120 mg twice daily.? Patient also has low BP running in 90s to 100s. 2/14: Heart rate is controlled. Blood pressure is better 113/15. Will recommend low-dose lisinopril as patient has chronic HFpEF. Patient also on furosemide 40 mg daily for right ventricular failure/chronic HFpEF and pulmonary hypertension. Hold if systolic BP more than 120 mmHg 3.? 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 - Blood pressure controlled, home medications continued with dose adjustment as needed 4.? Acute anemia of blood loss due to Lovenox with history of chronic anemia 05/13: Hemoglobin 8.1.? Platelet count 122,000.? On ferrous sulfate and ascorbic acid.? Patient not symptomatic with anemia.? If hemoglobin drops less than 7 g, will transfuse. 05/19: Hemoglobin dropped to 7.5 g.? Stool for occult blood ordered. 05/20: Patient was started on low-dose enoxaparin for DVT prophylaxis after hip fracture/intramedullary nailing. Patient regularly dropped hemoglobin to 7.4, 7.5. Currently 7.7. Patient had iron infusion during hospital stay. On Protonix 40 mg twice daily. On iron and ascorbic acid. Follow-up with GI for severe anemia. If hemoglobin gets stable more than 8 persistently, the patient can have low-dose DOACs for DVT prophylaxis for 1 month after hip fracture. Did not receive PRBC transfusion 5.? Dyslipidemia -Patient is on statin therapy, continued at home dose 6.? Hypokalemia ? Corrected per protocol repeat potassium ordered for monitoring ? Potassium 3.6 on 05/15 7.? DVT prophylaxis ? SCDs for now with plans to initiate chemoprophylaxis following patient surgery ? 05/15/2022 patient started on DVT prophylaxis with Lovenox 30 mg SC daily 05/19: Lovenox discontinued as hemoglobin is dropping to 7.5. 8.? Acute urinary retention Patient had Courtney catheterization on 05/16.? Clear urine DC Courtney catheterization. Discharge medication reconciliation done. Discharge follow-up instructions completed. Discharge process discussed with the patient and all questions were answered to patient's satisfaction. Total time spent, exact 35 minutes on discharge meds reconciliation, examination, coordination of care with nurses and ancillary staff, review of imaging and blood test and discussion with the patient on follow-up instructions. Physical Exam Narrative Follow-up for acute intertrochanteric fracture of right femur complicated with acute blood loss anemia Patient having good bowel movement. Heart rate is controlled. Patient walking few steps with the help of physical therapist. Stool for occult blood positive. Lovenox discontinued Physical exam General: Alert, Oriented x3, Cooperative, looks frail HEENT: Atraumatic, PERRLA, EOMI, Normocephalic Oral: Oral mucosa moist. No Gingival or Mucosal Lesions/ Ulcerations Neck: Supple, No JVD, Negative Carotid Bruits Lungs: Air entry diminished in bilateral lung bases. No crepitation/rhonchi Cardiovascular: A-fib, irregular rate and rhythm, Normal S1, Normal S2, No murmurs Abdomen: Bowel Sounds Present, Soft, Non Tender, Non-Distended : No renal angle tenderness. No suprapubic tenderness. Extremities: No edema, Capillary Refill Less than 3 Seconds Skin: No rashes, No breakdown Musculoskeletal: Right hip surgical dressing is dry. Mild tenderness. No palpable hematoma or bruise. Neurological: Cranial nerves II-XII grossly intact, DTR 2+/4 and Symmetrical Psych/Mental Status: Flat affect, Weight / BMI Weight Weight: 170 lb 6.677 oz Body Mass Index (BMI) 34.2 ABG / Lab / Microbiology Data Result Diagrams: 05/20/22 05:35 05/19/22 04:56 Laboratory: Laboratory Results - last 24 hr 05/19/22 04:56: Diff Path Review Reviewed 05/20/22 05:35: WBC 4.2 L, RBC 2.53 L, Hgb 7.7 L, Hct 27.5 L, MCV 108.7 H D, MCH 30.4, MCHC 28.0 L D, RDW Std Deviation 58.4 H, RDW Coeff of Oralia 15.2 H, Plt Count 160, MPV 9.7, Immature Gran % (Auto) 1.000 H, Neut % (Auto) 71.3 H, Lymph % (Auto) 11.6 L, Atlantic % (Auto) 10.6 H, Eos % (Auto) 5.3 H, Baso % (Auto) 0.2, Absolute Neuts (auto) 3.0, Absolute Lymphs (auto) 0.48 L, Nucleated RBC % 0.7, Differential Comment SCANNED, Diff Path Review May foll, Anisocytosis 1+, Macrocytosis 1+, Ovalocytes RARE, Retic Count 3.86 H, Immature Retic Fraction 28.00 H, Retic Hgb Equivalent 32.1 05/20/22 05:35: Iron 46 L, TIBC 358, Iron Saturation 12.8 L, Ferritin 83 Microbiology: Microbiology 05/20/22 10:00 Stool Stool Occult Blood (VIVIENNE) - Final Occult Blood Positive 05/16/22 16:33 Urine, Random Urine Culture - Final Culture exhibits no growth. D/C Instructions Discharge Diet: No restrictions Weight Bearing Status: Weight bearing as tolerated Call your doctor if you observe: Fever of 101 or Higher, Coldness, Increased Pain, Numbness or Tingling, Change in Color, Inability to urinate, Inability to have a bowel movement, Using more than 1 pad per hour, Shortness of breath, Dizziness, Fainting spells, Swelling in the ankles, Chest pain, Prolonged hiccupping, Increased palpitations (irregular heartbeat) and Calf discomfort When: IN 2 WEEKS Meaningful Use Info Meaningful Use Diagnoses (Choose all that apply): None applicable Discharge Plan Admission Admit Date/Time: 05/12/22 22:29 Primary Reason for Your Visit: Acute right intertrochanteric fracture Attending Provider: Kalen Morris Primary Care Provider: Cassius Monaco Chi Consulting Providers: Cosmo Patel ; [place] Canas ; Momo Wilson Instructions Additional Instructions / Restrictions: Right Hip Discharge instructions: Dry sterile dressing changes daily. Okay to shower postoperative day #4 if no drainage. No tub soaks. Weightbearing as tolerated right lower extremity. Hold Lasix if systolic blood pressure less than 120 mmHg Consider low-dose anticoagulant, NOAC Eliquis 2.5 mg twice daily if hemoglobin stays above 8 g% Discharge Orders/Prescriptions Prescriptions: New acetaminophen 500 mg Tablet 1,000 mg PO Q8 Qty: 0 0RF isosorbide mononitrate 30 mg Tablet Extended Release 24 Hr 30 mg PO DAILY Qty: 0 0RF sennosides-docusate sodium [Stool Softener-Stimulant Laxat] 8.6-50 mg Tablet 2 tab PO BID Qty: 0 0RF tamsulosin 0.4 mg Capsule 0.4 mg PO DAILY@1730 Qty: 0 0RF pantoprazole 40 mg Tablet,Delayed Release (Dr/Ec) 40 mg PO BID Qty: 0 0RF ferrous sulfate [FeroSul] 325 mg (65 mg iron) Tablet 325 mg PO DAILY Qty: 0 0RF Rx Instructions: for 3 months calcium carbonate 200 mg calcium (500 mg) Tablet,Chewable 500 mg PO TIDCM Qty: 0 0RF diltiazem HCl 120 mg Capsule,Extended Release 24hr 120 mg PO Q12 Qty: 0 0RF Rx Instructions: Hold for heart less than 60 or systolic blood pressure less than 90 mmHg. lisinopril 40 mg Tablet 10 mg PO DAILY Qty: 0 0RF Rx Instructions: Hold for SBP less than 130 mmHg Continued ergocalciferol (vitamin D2) 1,000 unit tablet 1,000 unit tablet 1 tab PO DAILY potassium chloride 20 mEq tablet extended release 20 meq PO DAILY Qty: 90 3RF furosemide 40 mg tablet 40 mg PO DAILY Qty: 90 3RF pravastatin 40 mg tablet 40 mg PO QHS Qty: 90 3RF Hold Instructions: Leg weakness metoprolol tartrate 100 mg tablet 100 mg PO BID Qty: 180 3RF Changed oxycodone 5 mg Tablet 2.5 mg PO Q4H PRN PRN (Reason: Pain Score 4-10) 5 Days Qty: 15 0RF Rx Instructions: 2.5 mg for moderate pain 4-6 and 5 mg for severe pain 7-10. Discontinued ferrous sulfate [Iron (ferrous sulfate)] 325 mg (65 mg iron) tablet 325 mg PO BID omeprazole 40 mg capsule,delayed release(DR/EC) 40 mg PO DAILY acetaminophen 500 mg Tablet 1,000 mg PO Q6 PRN (Reason: pain) Qty: 1 0RF isosorbide mononitrate 30 mg tablet extended release 24 hr 30 mg PO BID lisinopril 40 mg tablet 40 mg PO DAILY Referrals / Follow Up: David Sutherland MD [Med Staff - Active Staff] - Within 2 Weeks (acute retention of urine on Flomax. Courtney catheter discontinued) Ranch[place] Canas DO [Med Staff - Active Staff] - 05/28/22 Jluis Brenner DO [Med Staff - Active Staff] - In 1 Week (for severe anemia and FOBT positive) Cassius Monaco Chi, MD [Primary Care Provider] - Disposition Disposition (needs filled in before D/C Order can be placed): Inpatient Rehab Unit/Facility Charges/Coding Visit Charges Inpatient E&M: 43700 Disch Hosp >30min
--- NOTE | 2022-05-20 12:13 | PHA.DC.MR ---
Pharmacy Service has performed discharge medication reconciliation for this patient. The patient's discharge medication list was reviewed for discrepancies and discrepancies were resolved. Home Medications potassium chloride 20 mEq tablet,extended release 20 meq PO DAILY supplement #90 tabs 01/13/20 ergocalciferol (vitamin D2) 1,000 unit tablet 1 tab PO DAILY Check with primary doctor 05/28/20 furosemide 40 mg tablet 40 mg PO DAILY #90 tabs 07/22/21 pravastatin 40 mg tablet 40 mg PO QHS Check with primary doctor #90 tabs 09/30/21 metoprolol tartrate 100 mg tablet 100 mg PO BID #180 tabs 03/24/22 acetaminophen 500 mg tablet 1,000 mg PO Q8 #0 tabs 05/20/22 calcium carbonate 200 mg calcium (500 mg) chewable tablet 500 mg PO TIDCM #0 tabs 05/20/22 diltiazem HCl 120 mg capsule,extended release 24 hr 120 mg PO Q12 #0 caps 05/20/22 ferrous sulfate 325 mg (65 mg iron) tablet (FeroSul) 325 mg PO DAILY #0 tabs 05/20/22 isosorbide mononitrate 30 mg tablet,extended release 24 hr 30 mg PO DAILY #0 tabs 05/20/22 lisinopril 40 mg tablet 10 mg PO DAILY #0 tabs 05/20/22 oxycodone 5 mg tablet 2.5 mg PO Q4H PRN PRN Pain Score 4-10 5 days #15 tabs 05/20/22 pantoprazole 40 mg tablet,delayed release 40 mg PO BID #0 tabs 05/20/22 sennosides 8.6 mg-docusate sodium 50 mg tablet (Stool Softener-Stimulant Laxative) 2 tab PO BID #0 tabs 05/20/22 tamsulosin 0.4 mg capsule 0.4 mg PO DAILY@1730 #0 caps 05/20/22
--- NOTE | 2022-05-20 12:16 | CASEMGMT ---
Patient discharged to [facility] 4th floor Acute Rehab Unit. ELIUD sent d/c instructions to Tyesha with [facility]. ELIUD will also notify Rehab ELIUD Harding of Tyesha's contact information. Plan: d/c to [facility] 4th floor Acute Rehab Unit. Ginger MATT
--- NOTE | 2022-05-20 13:04 | CASEMGMT ---
ELIUD asked patient if she would like SW to notify her family where she is going. Patient said she would like her son Shiv notified and if he could call her later he could get a list of things she would like. ELIUD called patient's son Shiv and let him know this information. Plan: [facility] 4th floor Rehab Unit. Ginger MATT
[2022-05-20 13:35] LABS: Pathologist Review Reviewed
--- NOTE | 2022-05-20 15:22 | CASEMGMT ---
Patient does not have Healthcare Power of Refrigeration Houseman or Healthcare Living Will. Patient expressed no interest in documents. Ginger MATT
--- NOTE | 2022-05-20 15:59 | NURSING ---
Report called to Isela, In patient Rehab, patient ready to discharge to room 402. STRUCTURAL DESIGN ENGINEER made aware.
== END 2022-05-20 16:20 | DRG 481 ==
LOC: ED 22:19 → ICU 23:03 → PCU 05-14 06:38 → ICU 05-14 09:56 → PCU 05-14 09:56
PROVIDERS: Internal Medicine; Student in an Organized Health Care Education/Training Program; Admitting Provider Hospitalist; Emergency Provider Emergency Medicine; PCP Family Medicine Geriatric Medicine; Visit Provider Internal Medicine
PROC: 0QS636Z Reposition Right Upper Femur with Intramedullary Internal Fixation Device, Percutaneous Approach (ICD-10-PCS; CPT 27245; principal; 2022-05-14 14:30)
DX: S72.141A Displaced intertrochanteric fracture of right femur, initial encounter for closed fracture (principal); I50.32 Chronic diastolic (congestive) heart failure; D62 Acute posthemorrhagic anemia; I27.20 Pulmonary hypertension, unspecified; I11.0 Hypertensive heart disease with heart failure; I48.91 Unspecified atrial fibrillation; I25.10 Atherosclerotic heart disease of native coronary artery without angina pectoris; E78.2 Mixed hyperlipidemia; E87.6 Hypokalemia; R33.9 Retention of urine, unspecified
CPT/HCPCS: 36415; 70450; 71045; 73502; 76000; 80048; 80053; 81001; 82274; 82306; 82728; 83540; 83550; 85025; 85027; 85045; 85610; 85730; 86850; 86900; 86901; 86920; 87086; 93005; 94668; 97110; 97116; 97163; 97166; 97530; 97535; 99252; 99285; C1713; J7030; J7040; J7050; J7120; P9016; A4216; G0463; J2405; J2916

== ENCOUNTER 2022-05-20 16:33 | Inpatient (IN) | payer OTHER, MEDICARE, SELFPAY ==
[2022-05-20 16:50] VITALS: BP 116/52; PULSE 86; RESP 18; TEMP 36.9; O2SAT 98
[2022-05-20 19:00] VITALS: BP 124/55; PULSE 83; RESP 18; TEMP 36.7; O2SAT 96
[2022-05-20 20:17] VITALS: BMI 33.5
[2022-05-20 20:42] VITALS: O2SAT 97
[2022-05-20] MEDS: oxyCODONE 5 MG Tablet PO (20:46)
[2022-05-20] MEDS: Menthol/Lanolin/Calamine/Znox 113 GM Tube 1 APPLIC TOPICAL (20:48)
[2022-05-20] MEDS: dilTIAZem CD 120 MG Capsule PO (20:49)
[2022-05-20 20:50] VITALS: PULSE 80
[2022-05-20] MEDS: Pravastatin 40 MG Tablet PO (20:50)
[2022-05-20] MEDS: Metoprolol Tartrate 100 MG Tablet PO (20:50)
[2022-05-20] MEDS: Pantoprazole Sodium 40 MG Tablet PO (20:51)
[2022-05-20] MEDS: Senna/Docusate Sodium 1 Tablet 2 TABLET PO (20:51)
[2022-05-20] MEDS: Acetaminophen 500 MG Tablet 1000 MG PO (21:03)
[2022-05-20 22:00] VITALS: RESP 16; O2SAT 94
[2022-05-21] VITALS (8 sets, daily range): BP systolic 102–125; BP diastolic 52–74; PULSE 64–86; RESP 15–18; TEMP 36.2–37.2; O2SAT 93–100
[2022-05-21] MEDS: Acetaminophen 500 MG Tablet 1000 MG PO ×3 (05:26→20:58)
[2022-05-21 06:05] LABS: Absolute Lymphocyte Count 0.46 X10^3/uL (0.83-4.51); Absolute Neutrophil Count 3.9 X10^3/uL (2.0-7.7); Basophil# 0.02 X10^3/uL; Basophil% 0.4 % (0-1); Eosinophil# 0.24 X10^3/uL; Eosinophils% 4.6 % (0-5); Hematocrit 26.9 % (37-47); Hemoglobin 8.2 g/dL (12.0-15.0); Lymphocyte # 0.46 X10^3/ul (0.83-4.51); Lymphocyte % 8.8 % (19-41); Mean Corp Hgb Conc 30.5 g/dL (32-36); Mean Corpuscular Hgb 31.4 pg (27.0-32.0); Mean Corpuscular Volume 103.1 fL (81-99); Mean Platelet Vol. 9.3 fl (6.2-12.0); Monocyte# 0.56 X10^3/uL; Monocyte% 10.7 % (0-10); NRBC Flagged by Analyzer 0.6 % (0-5); Neutrophil # 3.89 X10^3/uL (2.7-7.7); Neutrophil % 74.7 % (47-70); POSITIVE DIFFERENTIAL YES; Platelet Count 195 K/mm3 (150-450); RBC Distribution Width CV 15.9 % (11.6-14.6); RBC Distribution Width SD 57.1 fl (35.1-43.9); Red Blood Count 2.61 M/mm3 (4.2-5.4); White Blood Count 5.2 K/mm3 (4.4-11.0)
[2022-05-21 06:09] LABS: Differential Indicated SCAN CRITERIA MET
[2022-05-21 06:28] LABS: Differential Comment SCANNED
[2022-05-21 06:34] LABS: ALB/GLOB Ratio 0.9 RATIO (0.9-2.4); AST(SGOT) 30 U/L (15-37); Alanine Aminotransfer ALT/SGPT 7 U/L (13-56); Albumin, Serum 2.8 g/dL (3.2-5.0); Alkaline Phosphatase 85 U/L (45-117); Anion Gap 6 (5-15); BUN 14 mg/dL (7-18); BUN/Creat Ratio 13.2 RATIO (10-20); Chloride 104 mmol/L (98-107); Creatinine, Serum 1.06 mg/dL (0.55-1.02); EST Glomerular Filtration Rate 54 mL/min (>60); Est Glom Filt Rate - Afr Amer 65 mL/min (>60); Estimated Creatinine Clearance 50.11 ml/min; Globulin 3.1 g/dL (2.2-4.2); Glucose 103 mg/dL (74-106); Magnesium 1.4 mg/dL (1.6-2.6); Potassium 4.4 mmol/L (3.5-5.1); Protein, Total 5.9 g/dL (6.4-8.2); Sodium Level 139 mmol/L (136-145)
[2022-05-21] MEDS: Senna/Docusate Sodium 1 Tablet 2 TABLET PO ×2 (08:40→20:58)
[2022-05-21] MEDS: Potassium Chloride Oral Tablet 20 MEQ PO (08:40)
[2022-05-21] MEDS: Lisinopril 10 MG Tablet PO (08:40)
[2022-05-21] MEDS: Pantoprazole Sodium 40 MG Tablet PO ×2 (08:41→20:59)
[2022-05-21] MEDS: Isosorbide Mononitrate 30 MG Tablet PO (08:41)
[2022-05-21] MEDS: dilTIAZem CD 120 MG Capsule PO ×2 (08:41→20:59)
[2022-05-21] MEDS: Calcium Carbonate 500 MG Tablet PO ×2 (08:41→12:20)
[2022-05-21] MEDS: Furosemide 40 MG Tablet PO (08:41)
[2022-05-21] MEDS: Metoprolol Tartrate 100 MG Tablet PO ×2 (08:41→20:58)
[2022-05-21] MEDS: Menthol/Lanolin/Calamine/Znox 113 GM Tube 1 APPLIC TOPICAL ×2 (08:46→21:01)
--- NOTE | 2022-05-21 11:27 | HP.PCM_ITS ---
HPI - General General Date of Admission: 05/20/22 Date of Service: 05/21/22 Chief Complaint: Debility secondary to hip fracture HPI Narrative MARGARETTE WISE, is a 76 YO F with a past medical history of atrial fibrillation, adenocarcinoma of the cecum in October 2020, anxiety, coronary artery disease, chronic anemia, anxiety/depression, hypertension, hyperlipidemia, chronic anticoagulation (stopped in May 2021 after a spontaneous intracranial hemorrhage while on warfarin), secondary pulmonary hypertension, severe mitral regurgitation, GERD and a laparoscopic cholecystectomy on 05/01/[address] Noyola. She presented to the ED at [facility] on 05/12/2022 complaining of R hip pain after a fall and inability to ambulate. X-ray showed an acute intertrochanteric fracture of the right femur. She was seen in consultation by Dr. Canas and taken to surgery on 05/14/2022 for placement of an intramedullary nail in the right femur. That night following surgery she became tachycardic and hypotensive and received a 500 cc fluid bolus but remained lightheaded. Hemoglobin was 7.4, down from 9.7 at admission. she was transfused with 1 unit of PRBC's on 05/15/22 and HGB the following day was 8.5. On 05/16/2022 she had urine retention and had to have straight cath. That night a noncontrast brain CT was done because of confusion and showed no acute abnormal intracranial finding. confusion was most likely due to Oxycodone and the dose was decreased from 5 mg to 2.5 mg. UA was negative for urinary tract infection. Urine culture was negative. Hemoccult stool on 05/20/22 was +. Review of the EMR shows she has had iron deficiency in the past. Iron studies on 05/20/2022 showed a serum iron low at 46, a TIBC of 358 and a low iron saturation at 12.8. She was continued on ferrous sulfate. B12 and folate in the past have been normal. Afebrile VSS -heart rate is within normal limits and the blood pressure is also within normal limits. Maintaining appropriate oxygen saturation on 2 L/min nasal cannula at 94%. Oral intake is poor Discussed with nursing -post void residual at approximately 4:30 AM today was 204 and she was straight cathed. At 11:18 AM the postvoid residual was 549 and a Courtney catheter is being inserted. UA is ordered. Reviewed the PT/OT notes All lab from this morning was personally reviewed. White blood cell count is normal at 5.2 and hemoglobin is 8.2 which is up from 7.7 on 05/20/2022. This may be related to dehydration rather than true improvement in the HGB. Platelets are normal at 195,000. Sodium is 139 today and the potassium is 4.4. The BUN is 14 and the creatinine is 1.06 which is up from 0.77 on 05/19/2022. Calcium is within normal limits but the magnesium is low at 1.4. Phosphorus is normal. Total bilirubin is elevated at 1.7 but it has been elevated in the past as well. Alkaline phosphatase and transaminases are normal. A recent vitamin D level was within normal limits. Medication list reviewed. Currently she is on no pharmacologic DVT prophylaxis. She is on Protonix 40 mg p.o. twice daily and it is likely she is not absorbing ferrous sulfate. I added 500 mg of vitamin C daily to be given with the ferrous sulfate. Echocardiogram in November 2021 showed a normal left ventricular ejection fraction of 55% with no wall motion abnormalities. There was a moderately dilated right ventricle with moderate global right ventricular systolic dysfunction. Both atria were severely enlarged. There was mild diffuse mitral valve thickening and moderate eccentric mitral valve insufficiency. There was also 2+ tricuspid insufficiency and mild aortic stenosis. The right ventricular systolic pressure was estimated at 37. A PET scan on 05/16/2021 at [facility] showed no evidence of metastatic disease. [facility] Medical History (Updated 05/21/22 @ 15:[address] Ada Devlin DO) Abdominal pain Adenocarcinoma (~10/2020) Adenocarcinoma of cecum Anemia Anxiety Arthritis Atrial fibrillation Atrial fibrillation with RVR Back pain bilateral feet surgery Bradycardia Brain mass CAD (coronary artery disease) Cancer Cardiology follow-up encounter Cerumen impaction Cholecystitis, chronic Colon adenocarcinoma Complicated UTI (urinary tract infection) Costochondritis Depression Difficult intravenous access Easy bruising Essential hypertension GERD (gastroesophageal reflux disease) High cholesterol History of echocardiogram History of edema History of stress test History of ulceration 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 Longstanding persistent atrial fibrillation Low iron Mixed hyperlipidemia Moderate to severe pulmonary hypertension Non-rheumatic mitral regurgitation Non-rheumatic tricuspid valve insufficiency Non-smoker Non-smoker Normal echocardiogram (~06/08/20) Normal stress echocardiogram (~06/03/17) Osteoarthritis Paroxysmal atrial fibrillation Rt flank pain Secondary pulmonary hypertension Severe mitral regurgitation Shortness of breath on exertion Syncope and collapse Vertigo Wears dentures Home Medications potassium chloride 20 mEq tablet,extended release 20 meq PO DAILY supplement #90 tabs 01/13/20 [Rx Last Taken Unknown] ergocalciferol (vitamin D2) 1,000 unit tablet 1 tab PO DAILY supplement 05/28/20 [History Last Taken Unknown] acetaminophen 500 mg tablet 1,000 mg PO Q8 Pain 05/20/22 [History Last Taken Un known] ascorbic acid (vitamin C) 500 mg tablet (Vitamin C) 500 mg PO DAILY supplement 05/20/22 [History Last Taken Unknown] calcium carbonate 200 mg calcium (500 mg) chewable tablet 500 mg PO TIDCM Mendoza pplement 05/20/22 [History Last Taken Unknown] diltiazem HCl 120 mg capsule,extended release 24 hr 120 mg PO Q12 BP 05/20/22 [History Last Taken Unknown] ferrous sulfate 325 mg (65 mg iron) tablet (FeroSul) 325 mg PO DAILY Supplement 05/20/22 [History Last Taken Unknown] furosemide 40 mg tablet 40 mg PO DAILY Fluid retention 05/20/22 [History Last Taken Unknown] isosorbide mononitrate 30 mg tablet,extended release 24 hr 30 mg PO DAILY BP 05/20/22 [History Last Taken Unknown] lisinopril 40 mg tablet 10 mg PO DAILY BP 05/20/22 [History Last Taken Unknown] metoprolol tartrate 100 mg tablet 100 mg PO BID BP 05/20/22 [History Last Taken Unknown] oxycodone 5 mg tablet 2.5 mg PO Q4H PRN PRN Pain Score 4-10 5 days #15 tabs 05/20/22 [Rx Last Taken Unknown] pantoprazole 40 mg tablet,delayed release 40 mg PO BID GERD 05/20/22 [History Last Taken Unknown] pravastatin 40 mg tablet 40 mg PO QHS Cholestrol 05/20/22 [History Last Taken Unknown] sennosides 8.6 mg-docusate sodium 50 mg tablet (Stool Softener-Stimulant Laxative) 2 tab PO BID Stool softner 05/20/22 [History Last Taken Unknown] tamsulosin 0.4 mg capsule 0.4 mg PO DAILY@1730 Urinary retention 05/20/22 [History Last Taken Unknown] Allergy/AdvReac Type Severity Reaction Status Date / Time piroxicam Allergy CAUSES Verified 05/12/22 21:00 BLEEDING ULCER adhesive tape AdvReac Rash/BLISTE Verified 05/12/22 21:00 RS Family History Mother 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 Father , from [place] at age 69 CAD (coronary artery disease) Myocardial infarction, Onset Age: 69 Brother 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 Heart disease Myocardial infarction Pacemaker Surgical History (Updated 05/21/22 @ 15:[address] Ada Devlin DO) H/O: hysterectomy History of carpal tunnel release History of colectomy (~10/2020) History of knee replacement, total History of laparoscopic cholecystectomy History of left heart catheterization (06/12/17) History of right and left heart catheterization (11/16/19) History of tonsillectomy History of transesophageal echocardiography (HANNY) (11/16/19) Hx of cataract extraction Hx of colonoscopy Hx of reduction of closed fracture Social History (Updated 05/21/22 @ 15:[address] Ada Devlin DO) household members: none and other details: She lives in a double wide trailer and she is . number of children: 2 Smoking Status: Never smoker alcohol intake: never substance use type: does not use caffeine: Yes Type: carbonated beverages Number of servings: 1 what type of physical activity do you participate in: none Prior Cardiac Testing/Procedures Prior Cardiac Testing/Procedures: Echocardiogram (Interpretation Summary Left ventricular systolic function is normal. The estimated ejection fraction is 55 %. Moderately dilated right ventricle. Moderate global right ventricular systolic dysfunction. The left atrium is severely enlarged. The right atrium is severely enlarged. There is mild mitral ) ROS Constitutional Constitutional: Denies change in weight, chills, daytime sleepiness, difficulty sleeping, excessive sweating, fever(s) or headache(s) Eyes Eyes: Denies blurry vision, burning, change in vision or itchy eyes ENT HEENT: Denies abnormal hearing, dental pain, dysphagia, headache(s), nasal discharge, otalgia, rhinorrhea, sinus pain or sore throat Cardiovascular Cardiovascular: Reports edema and irregular heart rhythm; Denies chest pain, dyspnea at rest or dyspnea on exertion Respiratory/Chest Respiratory/Chest: Denies chest tightness, cough, difficulty clearing secretions, dyspnea on exertion or shortness of breath at rest Gastrointestinal Gastrointestinal: Reports diarrhea Genitourinary Genitourinary: Reports difficulty urinating and other Details: Urine retention ; Denies abdominal discomfort, burning urination or low back pain Musculoskeletal Musculoskeletal: Reports difficulty walking and extremity pain; Denies numbness Integumentary Integumentary: Reports dry skin; Denies acne, alopecia or jaundice Neurologic Neurologic: Reports abnormal gait; Denies abnormal speech, behavior changes, burning sensations, confusion, frequent falls, memory loss, restless legs or vertigo Psychiatric Psychiatric: Reports anxiety and depression; Denies cognitive impairment or panic attacks Endocrine Endocrinology: Denies cold intolerance, deepening of the voice, heat in tolerance, polydipsia or polyuria Hematologic/Lymphatic Hematologic/Lymphatic: Reports easy bleeding and easy bruising Allergic/Immunologic Allergic/Immunologic: Denies rhinitis, eczemia, wheezing or asthma Vital Signs Vital Signs Vital Signs: 05/20/22 16:50 05/20/22 19:00 05/20/22 20:50 Temperature 98.5 F 98.1 F Temperature Source Oral Temporal Pulse Rate 86 83 80 Respiratory Rate 18 18 Respiratory Effort Respiratory Depth Respiratory Pattern Blood Pressure 116/52 L 124/55 H Blood Pressure Mean 73 78 Blood Pressure Source Monitor Monitor Blood Pressure Position Semi-Fowlers Semi-Fowlers Blood Pressure Location Right Arm Right Arm Pulse Ox 98 96 Oxygen Delivery Method Nasal Cannula Nasal Cannula Oxygen Flow Rate (L/min) 2 2 05/20/22 20:42 05/20/22 22:00 05/21/22 02:37 Temperature 97.8 F Temperature Source Temporal Pulse Rate 86 Respiratory Rate 16 15 Respiratory Effort Normal Non-Labored Respiratory Depth Normal Respiratory Pattern Normal Blood Pressure 125/74 H Blood Pressure Mean 91 Blood Pressure Source Blood Pressure Position Blood Pressure Location Pulse Ox 97 94 93 Oxygen Delivery Method Nasal Cannula Nasal Cannula Nasal Cannula Oxygen Flow Rate (L/min) 2 2 2 05/21/22 07:03 05/21/22 07:45 05/21/22 08:41 Temperature 97.1 F L Temperature Source Oral Pulse Rate 64 64 Respiratory Rate 16 Respiratory Effort Respiratory Depth Respiratory Pattern Blood Pressure 102/52 L Blood Pressure Mean 68 Blood Pressure Source Monitor Blood Pressure Position Semi-Fowlers Blood Pressure Location Left Arm Pulse Ox 94 94 Oxygen Delivery Method Nasal Cannula Nasal Cannula Oxygen Flow Rate (L/min) 2 2 Weight Weight: 155 lb Body Mass Index (BMI) 33.5 Physical Exam Const alert, oriented x3 and no apparent distress Constitutional Narrative: Lying in bed and appears to be in no distress General Appearance: cooperative, comfortable and well kempt HEENT normocephalic, head/scalp atraumatic and hearing grossly normal bilaterally HEENT Narrative: Dry Mucous membranes. Eyes PERRL, EOMs intact bilaterally, conjunctivae normal and no scleral icterus Eyes Narrative: No discharge from the eyes and no mattering of the eyelashes. General Eye: normal appearance of both eyes Neck supple Chest Chest: symmetrical chest wall rise Resp normal respiratory effort and clear to auscultation bilaterally Resp Narrative: I watched her do her IS and she is doing it appropriately. She can only get the float up to 750. Effort and Inspection: able to speak in complete sentences; Negative for tachypneic, pursed lip breathing or actively coughing Cardio regular rate, regular rhythm, no rub and no gallops Cardio Narrative: She has a soft systolic MM at the LLSB and the apex and she also has a 1/6 systolic MM in the Left axillary listening post. Heart sounds are a little distant Jugular Venous Distention: Negative for JVD GI soft to palpation, non-tender, non-distended and no masses; Negative for hepatosplenomegaly GI Narrative: No guarding with palpation no CVA tenderness Extremity normal to inspection, normal capillary refill and no calf tenderness Extremity Narrative: + Heberden's and Leighton's nodes on both hands General Extremity: edema; Negative for clubbing Skin General Skin Exam: no breakdown Rashes: no rashes Wound Narrative: the wound is still covered with a silver mepilex and the dressing is not ready to remove yet. Will examine the incision when the dressing is removed. There is no significant DC on the dressing and there is no erythema extending pat the boundaries of the dressing. Neuro oriented x3, CN's II-XII intact bilaterally, moves all extremities and no sensory deficits noted Psych mental status grossly normal, thought process normal, cooperative, affect normal, speech normal, activity/motor behavior normal, denies hallucinations and denies homicidal ideation Appearance: grossly normal and appropriate Attitude: calm Results Lab / Micro Data Result Diagrams: 05/21/22 05:43 05/21/22 05:43 Labs: Laboratory Results - last 24 hr 05/21/22 05:43: WBC 5.2, RBC 2.61 L, Hgb 8.2 L, Hct 26.9 L, MCV 103.1 H D, MCH 31.4, MCHC 30.5 L D, RDW Std Deviation 57.1 H, RDW Coeff of Oralia 15.9 H, Plt Count 195, MPV 9.3, Immature Gran % (Auto) 0.800, Neut % (Auto) 74.7 H, Lymph % (Auto) 8.8 L, [place] % (Auto) 10.7 H, Eos % (Auto) 4.6, Baso % (Auto) 0.4, Absolute Neuts (auto) 3.9, Absolute Lymphs (auto) 0.46 L, Nucleated RBC % 0.6, Differential Comment SCANNED 05/21/22 05:43: Sodium 139, Potassium 4.4, Chloride 104, Carbon Dioxide 29.0, Anion Gap 6, BUN 14, Creatinine 1.06 H, Estim Creat Clear Calc 50.11, Est GFR (MDRD) Af Amer 65, Est GFR (MDRD) Non-Af 54 L, BUN/Creatinine Ratio 13.2, Glucose 103, Calcium 9.0, Phosphorus 3.0, Magnesium 1.4 L, Total Bilirubin 1.70 H, AST 30, ALT 7 L, Alkaline Phosphatase 85, Total Protein 5.9 L, Albumin 2.8 L, Globulin 3.1, Albumin/Globulin Ratio 0.9 Assessment & Plan Assessment/Plan (1) Physical debility: PLAN: Secondary to recent right hip fracture (2) Fall: (3) Closed fracture of right hip: QUALIFIERS: Encounter type: initial encounter Qualified Code(s): S72.001A - Fracture of unspecified part of neck of right femur, initial encounter for closed fracture (4) Hx of reduction of closed fracture: PLAN: With cephalomedullary nailing by Dr. Canas on 05/14/2022 (5) Acute blood loss anemia: PLAN: Received 1 unit of packed red blood cells postoperatively (6) Occult blood in stools: (7) Iron deficiency anemia: QUALIFIERS: Iron deficiency anemia type: chronic blood loss Qualified Code(s): D50.0 - Iron deficiency anemia secondary to blood loss (chronic) PLAN: She has a history of iron deficiency in the past and has failed oral iron. She gets iron infusions ordered by Dr. Marrero when she becomes deficient. (8) Aortic valve stenosis, acquired: PLAN: Mild (9) Longstanding persistent atrial fibrillation: PLAN: Not on anticoagulation due to a spontaneous intracranial bleed while on warfarin. She is also not on an antiplatelet agent. (10) CAD (coronary artery disease): PLAN: Nonobstructive. (11) Non-rheumatic tricuspid valve insufficiency: (12) Non-rheumatic mitral regurgitation: (13) Essential hypertension: (14) Secondary pulmonary hypertension: (15) Mixed hyperlipidemia: (16) Osteoarthritis: (17) Diarrhea: (18) Urine retention: (19) UTI (urinary tract infection): PLAN: Plan PLAN PT for gait stability OT for ADL's Analgesics as needed Bowel protocol Fall precautions Assess for Anxiety/Depression GI prophylaxis with Protonix - not sure why she is on Protonix 40 BID with no recent hx of PUD. She has no abd pain and no N/V. Consider decreasing to once a day. DVT prophylaxis with SCDs and SIMIN hose. If the hemoglobin remains greater than 8 we will consider starting Eliquis at 2.5 mg twice daily or ASA 81 mg BID since she had a spontaneous brain bleed on anticoagulation in the past. Follow up with Dr. Canas, Dr. Monaco, Dr. Marrero and Dr. Pierce following DC from Rehab AM lab including CMP, CBC, Mag and Phos was personally reviewed. give iron Sucrose since she has a hx of failing oral iron in the past. She has no history of adverse reaction to iron infusion. She has now been straight cathed 2 times since admission to rehab and will insert a Courtney. UA done at the time of Courtney insertion is positive for greater than 100 WBCs per high-power field with 3+ bacteria. She did have Courtney catheter while on MedSurg 3. Urine culture has been ordered and will start an empiric antibiotic and await results of the urine culture. She had a recent COVID booster in Mar 2022 or Apr 2022. she drained > 1 Liter when the Courtney was inserted. Will recheck a BMP and a MAG in the AM and also a HH. Supplement MAG Charges/Coding Visit Charges Inpatient E&M: 62156 Init Hosp L2
[2022-05-21] MEDS: Cholecalciferol (VIT D3) 25 MCG TABLET (1,000 UNITS) PO (12:18)
[2022-05-21] MEDS: Ferrous Sulfate 325 MG Tablet PO (12:18)
[2022-05-21] MEDS: Ascorbic Acid 500 MG Tablet PO (12:18)
[2022-05-21 13:32] LABS: Color, Urine Yellow (Yellow); Glucose, Dipstick Normal (Normal); Ketone-Dipstick Negative (Negative); Leukocyte Esterase-Dipstick 500 /ul (Negative); Nitrite-Dipstick Negative (Negative); Occult Blood-Urine 150 /ul (Negative); Protein-Dipstick 30 mg/dl (Negative); Specific Gravity, Urine 1.005 (1.002-1.030); Urine Bilirubin Dipstick Negative (Negative); Urine Clarity Cloudy (Clear); Urine Urobilinogen Normal (Normal); Urine pH 6.5 (5.0 - 8.0)
[2022-05-21 13:57] LABS: White Blood Cells >100 SEEN /hpf (0-5)
[2022-05-21 13:59] LABS: Bacteria 3+ /hpf (None Seen); Mucous, Urine 1+ /hpf (<or=2+); Red Blood Cells-Urine 0-5 SEEN /hpf (0-5); Squamous Epithelial Cells - UA 5-10 SEEN /hpf (5-10)
[2022-05-21] MEDS: Sodium Ferric Gluconat 125 MG in 0.9% Normal Saline 100 ML 110 MG IV (15:09)
[2022-05-21] MEDS: 0.9% Saline Lock 10 ML Syringe IV ×3 (15:09→21:04)
--- NOTE | 2022-05-21 16:19 | REHABEVAL_ITS ---
Admission Information Primary Diagnosis:: Physical debility secondary to recent fall resulting in a right hip intertrochanteric fracture. Status Changes from Prescreening?: No changes Identified Actual Problem List:: UTI, Skin Intergrity, Pain, ALteration in Cmfrt, Depression, Mobility Impaired, Self Care Deficit and Alteration-Leisure Activ. Potential Problem List:: DVT, Bleeding, Infection, UTI, Aspiration, Falls, Skin Integrity and Depression Risk of Complications DVT: SIMIN Hose and Sequential Compression Device Bleeding: Monitor Lab Values, Nursing to Teach Precautions for anti-coagulation therapy., Wound, if applicable, to be assessed every shift. and Stroke patients assessed for lethargy or change in status. Infection: Clinical Staff to Monitor for S/S of infection: and S/S of infection include fever, redness, warmth, etc. Urinary Tract Infection: Monitor for frequency, burning, discomfort, or incontinence. and Nursing will obtain urine sample for urinalysis and C&S when ordered. Aspiration: Clinical staff will monitor for coughing, drooling, congestion., Speech will evaluate swallowing and dsyphasia. and Nursing will monitor patient swallowing during meals. Falls: Patient will be evaluated for Fall Precautions and Patient will be placed on Fall Precautions as indicated per protocol. Skin Breakdown: Nursing will assess skin daily using assessment tool. and Nursing will place on Skin Breakdown Precautions as indicated. Pain: Clinical staff will assess patient's pain level per protocol., Medications will be given, if needed, and the pain level reassessed. and Other methods: Massage, distraction, decrease stimulus, etc. used PRN. Plan of Care Patient requires physician specializing in physical medicine and rehab oversight to provide close medical supervision of rehab issues including: Pain Management, Sleep Problems, Bowel and Bladder, Medical and co-morbidity Management, DVT prophylaxis, Rehabilitation Leadership and Coordination of treatment team Patient needs Physical Therapy: For a minimum of 1 hour and At least 5 out of 7 days Patient needs Physical Therapy to improve:: Mobility, Strengthening, Transfers, Stretching, ROM, Endurance, Stairs, Gait and Balance Patient needs Occupational Therapy: For a minimum of 1 hour and At least 5 out of 7 days Patient needs Occupational Therapy to improve ADL's incl.: Eating, Grooming, Bathing, Dressing, Toileting, Toilet transfers, Community Reintegration, Higher functioning activities, Household tasks, Adaptive Equipment, Splinting and Other activities as determined Patient requires 24/ Rehabilitation Nursing for: Pain Issues, Identifying and preventing risk factors, Monitoring and reporting current medical conditions, Assisting with ambulation, transfer, and all ADL's, Teaching patients about disease process and medications, Family teaching, Providing safe environment, Bowel and Bladder Issues, Skin integrity and Medication Management Patient needs Client Development Director/ Case Management for: Discharge Planning, Arranging Home Equipment or Services and Family Interventions Patient needs Dietary and Nutrition Services for: Adequate Nutrition, Nutritional Supplements and Nutritional Education Goals Patient will remain: free from falls and or injury at time of discharge. Patient will perform bed mobility at: MOD I level of assist. Patient will complete transfers from bed to chair at: MOD I level of assist. Patient will ambulate: with LRD and - (150 feet at mod I with a wheeled walker) Patient will complete upper body dressing at: MOD I level of assist. Patient will complete lower body dressing at: MOD I level of assist. (With adaptive equipment as needed) Patient will complete toileting at: MOD I level of assist. Patient will perform bathing at: MOD I level of assist. Patient will complete grooming at: MOD I level of assist. Patient will complete home management skills at: MOD I level of assist. Patient will achieve: - (1 curb step and 3 steps with 1 HR at SBA so that she is able to enter her home at discharge) Patient will have pain level of: of 3 or less Patient's skin will: remain intact Patient will receive: adequate nutrition. Discharge Planning Pt Prognosis for Sig. Practical Improv. w/in Reasonable Time: Good Estimated Length of stay (days): 21 Anticipated D/C Destination: Home with Home Health Was Preadmission Assessment Accurate?: Yes
[2022-05-21] MEDS: Magnesium Sulfate 4gm/100mL 4 GM/100 ML IV.SOLN. IV (16:50)
[2022-05-21] MEDS: oxyCODONE 5 MG Tablet PO ×2 (16:56→21:28)
[2022-05-21] MEDS: Tamsulosin HCl 0.4 MG Capsule PO (16:56)
[2022-05-21] MEDS: Cefadroxil 500 MG CAPSULE PO (20:57)
[2022-05-21] MEDS: Pravastatin 40 MG Tablet PO (20:59)
[2022-05-22] VITALS (13 sets, daily range): BP systolic 95–113; BP diastolic 45–57; PULSE 66–100; RESP 15–18; TEMP 35.8–36.7; O2SAT 96–99
[2022-05-22] MEDS: Acetaminophen 500 MG Tablet 1000 MG PO ×3 (05:44→21:47)
[2022-05-22] MEDS: oxyCODONE 5 MG Tablet PO ×3 (05:44→19:38)
[2022-05-22 06:00] LABS: Hematocrit 24.3 % (37-47); Hemoglobin 7.4 g/dL (12.0-15.0)
[2022-05-22 06:42] LABS: Anion Gap 5 (5-15); BUN 14 mg/dL (7-18); BUN/Creat Ratio 16.4 RATIO (10-20); Calcium,Total 8.9 mg/dL (8.5-10.1); Chloride 103 mmol/L (98-107); Creatinine, Serum 0.86 mg/dL (0.55-1.02); EST Glomerular Filtration Rate 69 mL/min (>60); Est Glom Filt Rate - Afr Amer 83 mL/min (>60); Estimated Creatinine Clearance 73.01 ml/min; Glucose 97 mg/dL (74-106); Magnesium 2.2 mg/dL (1.6-2.6); Potassium 4.2 mmol/L (3.5-5.1); Sodium Level 138 mmol/L (136-145)
[2022-05-22] MEDS: Senna/Docusate Sodium 1 Tablet 2 TABLET PO ×2 (07:58→21:47)
[2022-05-22] MEDS: Isosorbide Mononitrate 30 MG Tablet PO (07:59)
[2022-05-22] MEDS: Lisinopril 10 MG Tablet PO (07:59)
[2022-05-22] MEDS: Cefadroxil 500 MG CAPSULE PO ×2 (07:59→21:48)
[2022-05-22] MEDS: Furosemide 40 MG Tablet PO (07:59)
[2022-05-22] MEDS: Calcium Carbonate 500 MG Tablet PO ×3 (07:59→17:20)
[2022-05-22] MEDS: Potassium Chloride Oral Tablet 20 MEQ PO (07:59)
[2022-05-22] MEDS: dilTIAZem CD 120 MG Capsule PO ×2 (07:59→21:48)
[2022-05-22] MEDS: Pantoprazole Sodium 40 MG Tablet PO ×2 (07:59→21:47)
[2022-05-22] MEDS: Magnesium Chloride 64 MG Delay Rel.Tablet 128 MG PO (07:59)
[2022-05-22] MEDS: Cholecalciferol (VIT D3) 25 MCG TABLET (1,000 UNITS) PO (08:01)
[2022-05-22] MEDS: Metoprolol Tartrate 100 MG Tablet PO ×2 (08:03→21:47)
[2022-05-22] MEDS: Menthol/Lanolin/Calamine/Znox 113 GM Tube 1 APPLIC TOPICAL ×2 (08:03→19:59)
[2022-05-22] MEDS: Ascorbic Acid 500 MG Tablet PO (11:26)
[2022-05-22] MEDS: Ferrous Sulfate 325 MG Tablet PO (11:26)
--- NOTE | 2022-05-22 13:42 | CASEMGMT ---
Social Work IDT met with patient for Team meeting. Discussed patient's progress in PT/OT/SN. Educated to worker's comp covering stay and will review weekly, NRD 05/26, continued stay is not guaranteed. Pt's goal is to return home alone. Will Team weekly. SW to continue to follow for DC planning. Meaghan Perez, MARLINE JAINW
--- NOTE | 2022-05-22 14:54 | PN_ITS ---
Progress Note Mariaelena was seen on team rounds today. There was no family to participate. Afebrile VSS-she is not tachycardic. Maintaining appropriate oxygen saturation on RA Oral fluid intake was only 480 yesterday. Fluid balance yesterday was -1327 cc. So far today she is +720. Discussed with nursing - She has serosanguineous DC from the R hip. She has pe ripheral edema in the legs and I suspect the DC is related to the edema....she has a known hx of Pulmonary HTN Reviewed the PT/OT/ST notes Medication list reviewed. All lab was personally reviewed. Hemoglobin today is down to 7.4 despite negative fluid balance yesterday. Sodium is 138 and the potassium is 4.2. Serum bicarb is 30. The BUN is 14 and the creatinine is 0.86, down from 1.06 yesterday. Magnesium is 2.2 today which is up from 1.4 yesterday following supplementation with intravenous magnesium. Mariaelena feels very fatigued. She also has some dyspnea on exertion. She denies lightheadedness. She denies chest pain, nausea, vomiting, abdominal pain, calf pain. she tells me that she has more pain today in the R leg.......this is more likely than not due to the 3 hours of therapy. Oxycodone 2.5 mg relieves the pain adequately. No adverse reaction to the 100 mg of iron sucrose yesterday. Physical Exam Const alert and no apparent distress Constitutional Narrative: Looks pale General Appearance: cooperative HEENT HEENT Narrative: The palpebral conjunctiva is pale. Resp normal respiratory effort and clear to auscultation bilaterally Resp Narrative: Normal respiratory effort at rest and she is not tachypneic at rest. Cardio Cardio Narrative: Irregular irregular with controlled ventricular response. No gallops GI normal to inspection, nondistended, normoactive bowel sounds, soft to palpation and non-tender GI Narrative: No guarding with palpation and the bowel sounds are not hyperactive. Extremity no calf tenderness General Extremity: edema Skin General Skin Exam: no breakdown Rashes: no rashes Wound Narrative: There is serosanguineous discharge present on the wound dressing which was changed recently. There is no odor. There is no erythema extending around the dressing. Assessment & Plan Assessment/Plan (1) Closed fracture of right hip: QUALIFIERS: Encounter type: initial encounter Qualified Code(s): S72.001A - Fracture of unspecified part of neck of right femur, initial encounter for closed fracture (2) Hx of reduction of closed fracture: (3) Physical debility: (4) Acute blood loss anemia: (5) Iron deficiency anemia: QUALIFIERS: Iron deficiency anemia type: chronic blood loss Qualified Code(s): D50.0 - Iron deficiency anemia secondary to blood loss (chronic) (6) Occult blood in stools: (7) TERRAZAS (dyspnea on exertion): (8) Moderate to severe pulmonary hypertension: (9) UTI (urinary tract infection): (10) Urine retention: PLAN: Plan 1. Continue therapy 2. Patient has symptomatic anemia secondary to acute blood loss related to recent right hip fracture and subsequent external fixation with a cephalomedullary nail. Patient is iron deficient and unable to respond to the blood loss. Will administer 3 additional doses of iron sucrose 200 mg daily. Hold oral iron while she is receiving intravenous iron. She has failed oral iron supplementation in the past and I am not sure why we are still giving her oral iron. She does have heme positive stool and she is on Protonix. Will transfuse 1 unit of packed red blood cells today and recheck an H&H in the AM. If the hemoglobin continues to drop will need to consult Dr. Brenner for endoscopy. 3. Urine culture is pending. Continue cefadroxil until we have the results of the urine culture. 4. Voiding trial when the urinary tract infection has resolved. 5. she is c/o diarrhea and tells me that oral iron gives her diarrhea.........the stool is not black/melanotic per nursing. Order Imodium PRN......she takes this at home. diarrhea could be related to recent cholecystectomy and if it continues will need to try Questran to see if this helps with diarrhea. Visit Charges Inpatient E&M: 99078 Subs Hosp L2
[2022-05-22] MEDS: 0.9% Saline Lock 10 ML Syringe IV (15:26)
[2022-05-22] MEDS: Sodium Ferric Gluconat 250 MG in 0.9% Normal Saline 250 ML 135 MG IV (15:27)
[2022-05-22] MEDS: Tamsulosin HCl 0.4 MG Capsule PO (17:20)
--- NOTE | 2022-05-22 17:49 | NURSING ---
Patient agreed to receive a blood transfusion and has denied any issues in the past. Son aware.
[2022-05-22] MEDS: Pravastatin 40 MG Tablet PO (21:47)
--- NOTE | 2022-05-22 22:26 | NURSING ---
Transfusion complete and pt tolerated well.
[2022-05-23 05:55] LABS: Hematocrit 27.9 % (37-47); Hemoglobin 9.4 g/dL (12.0-15.0); Mean Corp Hgb Conc 33.7 g/dL (32-36); Mean Corpuscular Hgb 33.2 pg (27.0-32.0); Mean Corpuscular Volume 98.6 fL (81-99); Mean Platelet Vol. 10.2 fl (6.2-12.0); Platelet Count 257 K/mm3 (150-450); RBC Distribution Width CV 16.6 % (11.6-14.6); RBC Distribution Width SD 57.7 fl (35.1-43.9); Red Blood Count 2.83 M/mm3 (4.2-5.4)
[2022-05-23] MEDS: Acetaminophen 500 MG Tablet 1000 MG PO ×3 (06:04→21:49)
[2022-05-23 07:15] VITALS: O2SAT 94
[2022-05-23 07:30] VITALS: BP 140/59; PULSE 70; RESP 18; TEMP 36.3; O2SAT 93
[2022-05-23 08:16] VITALS: BP 140/59; PULSE 70
[2022-05-23] MEDS: Senna/Docusate Sodium 1 Tablet 2 TABLET PO ×2 (08:16→21:50)
[2022-05-23] MEDS: Metoprolol Tartrate 100 MG Tablet PO ×2 (08:16→21:49)
[2022-05-23] MEDS: Magnesium Chloride 64 MG Delay Rel.Tablet 128 MG PO (08:16)
[2022-05-23] MEDS: Pantoprazole Sodium 40 MG Tablet PO ×2 (08:16→21:49)
[2022-05-23] MEDS: Cefadroxil 500 MG CAPSULE PO ×2 (08:16→21:50)
[2022-05-23] MEDS: Lisinopril 10 MG Tablet PO (08:16)
[2022-05-23] MEDS: Isosorbide Mononitrate 30 MG Tablet PO (08:16)
[2022-05-23] MEDS: Cholecalciferol (VIT D3) 25 MCG TABLET (1,000 UNITS) PO (08:16)
[2022-05-23] MEDS: dilTIAZem CD 120 MG Capsule PO ×2 (08:17→21:49)
[2022-05-23] MEDS: Potassium Chloride Oral Tablet 20 MEQ PO (08:17)
[2022-05-23] MEDS: Furosemide 40 MG Tablet PO (08:17)
[2022-05-23] MEDS: Calcium Carbonate 500 MG Tablet PO ×3 (08:17→17:14)
[2022-05-23] MEDS: Menthol/Lanolin/Calamine/Znox 113 GM Tube 1 APPLIC TOPICAL ×2 (08:20→21:52)
[2022-05-23] MEDS: oxyCODONE 5 MG Tablet PO ×3 (08:48→21:44)
[2022-05-23] MEDS: Sodium Chloride 0.65% 1 SPRAY SPRAY.BTL NASAL ×2 (08:48→21:51)
[2022-05-23] MEDS: 0.9% Saline Lock 10 ML Syringe IV (10:17)
[2022-05-23] MEDS: Sodium Ferric Gluconat 250 MG in 0.9% Normal Saline 250 ML 135 MG IV (10:17)
[2022-05-23] MEDS: Ascorbic Acid 500 MG Tablet PO (12:03)
[2022-05-23] MEDS: Tamsulosin HCl 0.4 MG Capsule PO (17:14)
[2022-05-23 20:00] VITALS: BP 112/52; PULSE 75; RESP 16; TEMP 36.4; O2SAT 97
[2022-05-23 20:30] VITALS: O2SAT 97
[2022-05-23 21:49] VITALS: BP 112/52; PULSE 72
[2022-05-23] MEDS: Pravastatin 40 MG Tablet PO (21:49)
[2022-05-24] VITALS (7 sets, daily range): BP systolic 96–103; BP diastolic 47–48; PULSE 75–84; RESP 16–19; TEMP 36.6–37.1; O2SAT 2–98
[2022-05-24] MEDS: 0.9% Saline Lock 10 ML Syringe IV ×2 (05:57→08:27)
[2022-05-24] MEDS: Acetaminophen 500 MG Tablet 1000 MG PO ×3 (05:59→21:33)
[2022-05-24] MEDS: oxyCODONE 5 MG Tablet PO ×2 (06:00→21:32)
[2022-05-24] MEDS: Pantoprazole Sodium 40 MG Tablet PO ×2 (08:23→21:33)
[2022-05-24] MEDS: Senna/Docusate Sodium 1 Tablet 2 TABLET PO (08:23)
[2022-05-24] MEDS: Cholecalciferol (VIT D3) 25 MCG TABLET (1,000 UNITS) PO (08:24)
[2022-05-24] MEDS: Calcium Carbonate 500 MG Tablet PO ×3 (08:24→16:50)
[2022-05-24] MEDS: Isosorbide Mononitrate 30 MG Tablet PO (08:24)
[2022-05-24] MEDS: Metoprolol Tartrate 100 MG Tablet PO ×2 (08:24→21:34)
[2022-05-24] MEDS: Magnesium Chloride 64 MG Delay Rel.Tablet 128 MG PO (08:24)
[2022-05-24] MEDS: Potassium Chloride Oral Tablet 20 MEQ PO (08:24)
[2022-05-24] MEDS: Menthol/Lanolin/Calamine/Znox 113 GM Tube 1 APPLIC TOPICAL ×2 (08:24→21:29)
[2022-05-24] MEDS: dilTIAZem CD 120 MG Capsule PO ×2 (08:24→21:34)
[2022-05-24] MEDS: Lisinopril 10 MG Tablet PO (08:24)
[2022-05-24] MEDS: Furosemide 40 MG Tablet PO (08:24)
[2022-05-24] MEDS: Cefadroxil 500 MG CAPSULE PO ×2 (08:24→21:34)
[2022-05-24] MEDS: Nystatin Powder 15gm Bottle 1 APPLIC TOPICAL ×2 (09:02→21:29)
[2022-05-24] MEDS: Sodium Ferric Gluconat 250 MG in 0.9% Normal Saline 250 ML 135 MG IV (10:06)
[2022-05-24] MEDS: Ascorbic Acid 500 MG Tablet PO (13:04)
[2022-05-24] MEDS: Tamsulosin HCl 0.4 MG Capsule PO (16:50)
[2022-05-24] MEDS: Pravastatin 40 MG Tablet PO (21:35)
[2022-05-24] MEDS: Sodium Chloride 0.65% 1 SPRAY SPRAY.BTL NASAL (21:35)
[2022-05-25] VITALS (7 sets, daily range): BP systolic 91–117; BP diastolic 47–60; PULSE 70–90; RESP 15–19; TEMP 36.2–36.6; O2SAT 93–99
[2022-05-25] MEDS: Acetaminophen 500 MG Tablet 1000 MG PO ×3 (05:22→22:10)
[2022-05-25] MEDS: Cholecalciferol (VIT D3) 25 MCG TABLET (1,000 UNITS) PO (08:23)
[2022-05-25] MEDS: Potassium Chloride Oral Tablet 20 MEQ PO (08:23)
[2022-05-25] MEDS: Calcium Carbonate 500 MG Tablet PO ×3 (08:24→17:22)
[2022-05-25] MEDS: Cefadroxil 500 MG CAPSULE PO ×2 (08:24→22:10)
[2022-05-25] MEDS: dilTIAZem CD 120 MG Capsule PO ×2 (08:25→22:11)
[2022-05-25] MEDS: Furosemide 40 MG Tablet PO (08:26)
[2022-05-25] MEDS: Magnesium Chloride 64 MG Delay Rel.Tablet 128 MG PO (08:26)
[2022-05-25] MEDS: Pantoprazole Sodium 40 MG Tablet PO ×2 (08:26→22:10)
[2022-05-25] MEDS: Isosorbide Mononitrate 30 MG Tablet PO (08:26)
[2022-05-25] MEDS: Lisinopril 10 MG Tablet PO (08:27)
[2022-05-25] MEDS: Menthol/Lanolin/Calamine/Znox 113 GM Tube 1 APPLIC TOPICAL ×2 (08:31→22:11)
[2022-05-25] MEDS: Nystatin Powder 15gm Bottle 1 APPLIC TOPICAL ×2 (08:32→22:15)
[2022-05-25] MEDS: oxyCODONE 5 MG Tablet PO ×2 (09:22→17:23)
[2022-05-25] MEDS: 0.9% Saline Lock 10 ML Syringe IV (10:00)
[2022-05-25] MEDS: Ascorbic Acid 500 MG Tablet PO (12:46)
[2022-05-25] MEDS: Tamsulosin HCl 0.4 MG Capsule PO (17:23)
[2022-05-25] MEDS: Sodium Chloride 0.65% 1 SPRAY SPRAY.BTL NASAL (17:24)
[2022-05-25] MEDS: Metoprolol Tartrate 100 MG Tablet PO (22:10)
[2022-05-25] MEDS: Pravastatin 40 MG Tablet PO (22:11)
[2022-05-26] VITALS (7 sets, daily range): BP systolic 104–108; BP diastolic 53–58; PULSE 75–85; RESP 16–18; TEMP 36.4–37.2; O2SAT 92–97; BMI 39.4
[2022-05-26] MEDS: oxyCODONE 5 MG Tablet PO ×3 (00:33→12:35)
[2022-05-26] MEDS: Acetaminophen 500 MG Tablet 1000 MG PO ×3 (05:21→21:00)
[2022-05-26] MEDS: 0.9% Saline Lock 10 ML Syringe IV ×3 (05:22→21:01)
[2022-05-26] MEDS: Potassium Chloride Oral Tablet 20 MEQ PO (07:41)
[2022-05-26] MEDS: Metoprolol Tartrate 100 MG Tablet PO (07:41)
[2022-05-26] MEDS: Isosorbide Mononitrate 30 MG Tablet PO (07:41)
[2022-05-26] MEDS: Calcium Carbonate 500 MG Tablet PO ×3 (07:41→17:59)
[2022-05-26] MEDS: Magnesium Chloride 64 MG Delay Rel.Tablet 128 MG PO ×2 (07:41→20:53)
[2022-05-26] MEDS: Cefadroxil 500 MG CAPSULE PO ×2 (07:42→20:53)
[2022-05-26] MEDS: Nystatin Powder 15gm Bottle 1 APPLIC TOPICAL ×2 (07:42→20:52)
[2022-05-26] MEDS: dilTIAZem CD 120 MG Capsule PO ×2 (07:42→20:56)
[2022-05-26] MEDS: Cholecalciferol (VIT D3) 25 MCG TABLET (1,000 UNITS) PO (07:42)
[2022-05-26] MEDS: Pantoprazole Sodium 40 MG Tablet PO ×2 (07:42→20:58)
[2022-05-26] MEDS: Furosemide 40 MG Tablet PO (07:42)
[2022-05-26] MEDS: Lisinopril 10 MG Tablet PO (07:42)
--- NOTE | 2022-05-26 10:21 | PCM.PROGNOTE ---
Subjective Subjective Day 6 cefadroxil Afebrile VSS -blood pressures over the past 48 hours have ranged from 91/50 to 104/58. Heart rate is within normal limits. Still requiring oxygen supplementation. she is 96% on 1 LPM this AM. Oral intake of food is good but, she has very poor fluid intake. Intake yesterday was only 420. Weights have been erratic. Will weigh today Discussed with nursing - Still having copious amount of DC from the R hip. Nursing also reports she has pitting edema of the upper thighs and lower abd. Reviewed the PT/OT/ST notes Medication list reviewed. Mariaelena is c/o increased swelling in her legs. They feel tight. She denies chest pain, shortness of breath, cough, sore throat, nausea/vomiting/abdominal pain, suprapubic pain. She feels dizzy at times. Denies vertigo. Objective Data Objective Data Vital Signs: Vital Signs Temp Pulse Resp BP Pulse Ox O2 Del Method O2 Flow Rate 97.6 F L 85 18 104/58 L 96 Nasal Cannula 1 05/26/22 07:57 05/26/22 07:57 05/26/22 07:57 05/26/22 07:57 05/26/22 06:27 05/26/22 08:48 05/26/22 08:48 FiO2 96 05/26/22 08:48 Oxygen Flow Rate (L/min) 1 Oxygen Delivery Method Nasal Cannula Weight: 183 lb 3.266 oz Body Mass Index (BMI) 33.5 Intake & Output: Intake and Output for Last 24 Hours 05/24/22 05/25/22 05/26/22 23:59 23:59 23:59 Intake Total 1200 / 1200 420 / 820 610 / 610 Output Total 1275 / 1275 1300 / 1700 700 / 700 Balance -75 / -75 -880 / -880 -90 / -90 Lab / Micro Data Result Diagrams: 05/26/22 10:45 05/26/22 10:45 Micro: Microbiology 05/21/22 12:00 Urine, Clean Catch Urine Culture - Final Mixed Gram Pos & Gram Neg Org Physical Exam Const alert, oriented x3 and no apparent distress Constitutional Narrative: She is sitting in the recliner at the bedside with her legs elevated. General Appearance: cooperative HEENT HEENT Narrative: Palpebral conjunctiva is pale. Resp normal air movement and clear to auscultation bilaterally Effort and Inspection: Negative for tachypneic or respiratory distress Cardio regular rate, regular rhythm, no rub and no gallops GI normal to inspection, nondistended, normoactive bowel sounds, soft to palpation and non-tender GI Narrative: No guarding with palpation. Extremity Extremity Narrative: She has pitting edema to the groin BL. No pitting in the flanks. ELEANOR wraps are in place. Skin Skin Narrative: There is a large amount of drainage from the R hip. Not purulent in nature and no odor......mostly serosanguineous......likely due to the pitting edema of the legs to the groin. General Skin Exam: no breakdown Rashes: no rashes Assessment & Plan Assessment/Plan (1) Physical debility: (2) Closed fracture of right hip: QUALIFIERS: Encounter type: initial encounter Qualified Code(s): S72.001A - Fracture of unspecified part of neck of right femur, initial encounter for closed fracture (3) Hx of reduction of closed fracture: (4) Urine retention: (5) UTI (urinary tract infection): (6) Acute blood loss anemia: (7) Iron deficiency anemia: QUALIFIERS: Iron deficiency anemia type: chronic blood loss Qualified Code(s): D50.0 - Iron deficiency anemia secondary to blood loss (chronic) (8) Moderate to severe pulmonary hypertension: (9) Acute on chronic right heart failure: PLAN: Plan 1. Continue therapy 2. Decrease metoprolol to 75 mg twice daily 3. Decrease lisinopril to 5 mg daily 4. H&H, BMP, magnesium today 5. the urine culture sent on the was a cath specimen and grew mixed GM + and - organisms. Another culture was sent today......but, she has been on antibiotics for 6 days now......will order a UA and if the pyuria has resolved will assume the Cefadroxil was appropriate tx. 6. DC PO Lasix and start IV Lasix. 7. Get a wt today and start daily weights for the next few days. 8. Monitor the HR closely since we are decreasing the dose of the Metoprolol. Charges/Coding Visit Charges Inpatient E&M: 65491 Subs Hosp L2
[2022-05-26 11:00] LABS: Hematocrit 30.1 % (37-47); Hemoglobin 9.2 g/dL (12.0-15.0)
[2022-05-26 11:26] LABS: BNP,B-Type NATRIURETIC PEPTIDE 445.6 pg/mL (0-100)
[2022-05-26 11:27] LABS: Anion Gap 5 (5-15); BUN 12 mg/dL (7-18); BUN/Creat Ratio 13.8 RATIO (10-20); Calcium,Total 9.6 mg/dL (8.5-10.1); Chloride 99 mmol/L (98-107); Creatinine, Serum 0.87 mg/dL (0.55-1.02); EST Glomerular Filtration Rate 67 mL/min (>60); Est Glom Filt Rate - Afr Amer 81 mL/min (>60); Estimated Creatinine Clearance 71.82 ml/min; Glucose 110 mg/dL (74-106); Magnesium 1.8 mg/dL (1.6-2.6); Potassium 4.7 mmol/L (3.5-5.1); Sodium Level 136 mmol/L (136-145)
[2022-05-26] MEDS: Menthol/Lanolin/Calamine/Znox 113 GM Tube 1 APPLIC TOPICAL ×2 (12:32→20:56)
[2022-05-26] MEDS: Ascorbic Acid 500 MG Tablet PO (12:35)
[2022-05-26] MEDS: Furosemide 40 MG/4 ML Vial IV (13:45)
[2022-05-26 13:47] LABS: Bacteria 0 SEEN /hpf (None Seen); Mucous, Urine 0 SEEN /hpf (<or=2+); Red Blood Cells-Urine 0 SEEN /hpf (0-5)
[2022-05-26 14:23] LABS: Color, Urine Straw (Yellow); Glucose, Dipstick Normal (Normal); Ketone-Dipstick Negative (Negative); Leukocyte Esterase-Dipstick 100 /ul (Negative); Nitrite-Dipstick Negative (Negative); Occult Blood-Urine Negative /ul (Negative); Protein-Dipstick Negative (Negative); Urine Bilirubin Dipstick Negative (Negative); Urine Clarity Clear (Clear); Urine Urobilinogen Normal (Normal); Urine pH 6.5 (5.0 - 8.0)
[2022-05-26 14:31] LABS: Squamous Epithelial Cells - UA 0-5 SEEN /hpf (5-10); White Blood Cells 25-50 SEEN /hpf (0-5)
[2022-05-26] MEDS: Tamsulosin HCl 0.4 MG Capsule PO (17:59)
[2022-05-26] MEDS: Metoprolol Tartrate 50 MG Tablet 75 MG PO (20:54)
[2022-05-26] MEDS: Pravastatin 40 MG Tablet PO (20:57)
[2022-05-27] VITALS (11 sets, daily range): BP systolic 92–119; BP diastolic 40–62; PULSE 67–85; RESP 15–17; TEMP 36.4–37.4; O2SAT 93–97; BMI 38.1
[2022-05-27] MEDS: oxyCODONE 5 MG Tablet PO ×3 (01:13→14:11)
[2022-05-27] MEDS: Acetaminophen 500 MG Tablet 1000 MG PO ×3 (05:36→21:02)
[2022-05-27] MEDS: Sodium Chloride 0.65% 1 SPRAY SPRAY.BTL NASAL ×2 (05:37→20:59)
[2022-05-27 06:37] LABS: Magnesium 1.8 mg/dL (1.6-2.6)
[2022-05-27] MEDS: Lisinopril 5 MG Tablet PO (08:14)
[2022-05-27] MEDS: Cholecalciferol (VIT D3) 25 MCG TABLET (1,000 UNITS) PO (08:15)
[2022-05-27] MEDS: Calcium Carbonate 500 MG Tablet PO ×3 (08:15→16:22)
[2022-05-27] MEDS: dilTIAZem CD 120 MG Capsule PO ×2 (08:15→21:03)
[2022-05-27] MEDS: Potassium Chloride Oral Tablet 20 MEQ PO (08:15)
[2022-05-27] MEDS: Cefadroxil 500 MG CAPSULE PO (08:16)
[2022-05-27] MEDS: Isosorbide Mononitrate 30 MG Tablet PO (08:16)
[2022-05-27] MEDS: Pantoprazole Sodium 40 MG Tablet PO ×2 (08:16→21:02)
[2022-05-27] MEDS: Menthol/Lanolin/Calamine/Znox 113 GM Tube 1 APPLIC TOPICAL ×2 (08:16→21:01)
[2022-05-27] MEDS: Metoprolol Tartrate 50 MG Tablet 75 MG PO ×2 (08:17→21:01)
[2022-05-27] MEDS: Magnesium Chloride 64 MG Delay Rel.Tablet 128 MG PO ×2 (08:25→21:01)
[2022-05-27] MEDS: Nystatin Powder 15gm Bottle 1 APPLIC TOPICAL ×2 (08:25→21:02)
--- NOTE | 2022-05-27 10:06 | PN_ITS ---
Subjective Subjective Temp today is 99.4......will recheck later today. BP is still on the low side with the decrease in the metoprolol and Lisinopril yesterday. HR is in the 70's with no tachycardia. She took 1300 cc orally yesterday. Fluid balance after 40 mg IV Lasix was - 1250. Lab ordered for tomorrow. Urine yesterday still had 25-50 WBC's but no bacteria. 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 Will change the antibiotic since she is still growing bacteria despite 6 full days of Cefadroxil. Mariaelena denies shortness of breath. She tells me that she is feeling better today and she is not as lightheaded. She still complains of tightness in her legs. She denies chest pain, palpitations, nausea/vomiting/abdominal pain, calf pain and cough. Objective Data Objective Data Vital Signs: Vital Signs Temp Pulse Resp BP Pulse Ox O2 Del Method O2 Flow Rate 99.4 F H 79 17 92/46 L 94 Nasal Cannula 1 05/27/22 07:19 05/27/22 08:17 05/27/22 07:19 05/27/22 07:19 05/27/22 07:19 05/27/22 07:19 05/27/22 07:19 FiO2 96 05/26/22 22:00 Oxygen Flow Rate (L/min) 1 Oxygen Delivery Method Nasal Cannula Weight: 182 lb 5.156 oz Body Mass Index (BMI) 39.4 Intake & Output: Intake and Output for Last 24 Hours 05/25/22 05/26/22 05/27/22 23:59 23:59 23:59 Intake Total 420 / 820 1300 / 1300 150 / 150 Output Total 1300 / 1700 2550 / 2550 750 / 750 Balance -880 / -880 -1250 / -1250 -600 / -600 Lab / Micro Data Result Diagrams: 05/26/22 10:45 05/26/22 10:45 Labs: Laboratory Results - last 24 hr 05/26/22 10:45: Hgb 9.2 L, Hct 30.1 L 05/26/22 10:45: Sodium 136, Potassium 4.7, Chloride 99, Carbon Dioxide 32.0, Anion Gap 5, BUN 12, Creatinine 0.87, Estim Creat Clear Calc 71.82, Est GFR (MDRD) Af Amer 81, Est GFR (MDRD) Non-Af 67, BUN/Creatinine Ratio 13.8, Glucose 110 H, Calcium 9.6, Magnesium 1.8 05/26/22 10:45: B-Natriuretic Peptide 445.6 H 05/26/22 13:40: Urine Color Straw, Urine Clarity Clear, Urine pH 6.5, Ur Specific [place] 1.010, Urine Protein Negative, Urine Glucose (UA) Normal, Urine Ketones Negative, Urine Occult Blood Negative, Urine Nitrite Negative, Urine Bilirubin Negative, Urine Urobilinogen Normal, Ur Leukocyte Esterase 100 H, Urine RBC 0 SEEN, Urine WBC 25-50 SEEN, Ur Squamous Epith Cells 0-5 SEEN, Urine Bacteria 0 SEEN, Urine Mucus 0 SEEN 05/27/22 05:29: Magnesium 1.8 Micro: Microbiology 05/26/22 05:30 Urine Catheter - Courtney Urine Culture - Preliminary GNR lactose 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 General Appearance: cooperative HEENT normocephalic, head/scalp atraumatic and hearing grossly normal bilaterally Eyes PERRL, EOMs intact bilaterally, conjunctivae normal and no scleral icterus Eyes Narrative: No discharge from the eyes and no mattering of the eyelashes. General Eye: normal appearance of both eyes Neck supple Chest Chest: symmetrical chest wall rise Resp normal respiratory effort, normal air movement and clear to auscultation bilaterally Resp Narrative: No conversational dyspnea Effort and Inspection: able to speak in complete sentences; Negative for tachypneic, respiratory distress, pursed lip breathing or actively coughing Cardio no gallops Cardio Narrative: Irregular with controlled ventricular response. No tachycardia. Jugular Venous Distention: Negative for JVD GI normal to inspection, nondistended, normoactive bowel sounds, soft to palpation and non-tender GI Narrative: No guarding with palpation. no CVA tenderness Extremity normal to inspection, normal capillary refill and no calf tenderness Extremity Narrative: Still with pitting edema to the groin bilaterally. General Extremity: edema; Negative for clubbing Skin Skin Narrative: There is a large amount of drainage from the R hip. Not purulent in nature and no odor......mostly serosanguineous......likely due to the pitting edema of the legs to the groin. General Skin Exam: no breakdown Rashes: no rashes Wound Narrative: There is serosanguineous discharge present on the wound dressing which was kellie nged recently. There is no odor. There is no erythema extending around the dressing. Neuro oriented x3, CN's II-XII intact bilaterally, moves all extremities and no sensory deficits noted Psych mental status grossly normal, thought process normal, cooperative, affect normal, speech normal, activity/motor behavior normal, denies hallucinations and denies homicidal ideation Appearance: grossly normal and appropriate Attitude: calm Assessment & Plan Assessment/Plan (1) Physical debility: (2) Closed fracture of right hip: QUALIFIERS: Encounter type: initial encounter Qualified Code(s): S72.001A - Fracture of unspecified part of neck of right femur, initial encounter for closed fracture (3) Hx of reduction of closed fracture: (4) Urine retention: (5) UTI (urinary tract infection): (6) Acute blood loss anemia: (7) Iron deficiency anemia: QUALIFIERS: Iron deficiency anemia type: chronic blood loss Qualified Code(s): D50.0 - Iron deficiency anemia secondary to blood loss (chronic) (8) Moderate to severe pulmonary hypertension: (9) Acute on chronic right heart failure: PLAN: Plan 1. Continue therapy 2. Discontinue cefadroxil and start Levaquin. 500 mg x 1 today and then start 250 mg daily on 05/28/2022. 3. Await the final on the urine culture 4. Lab ordered for tomorrow 5. Continue Lasix 40 mg IV but change the frequency to BID. 6. No changes to the antihypertensive regime today - it will take a day or so for the changes made yesterday to take effect. 7. orthostatic VS in the AM Charges/Coding Visit Charges Inpatient E&M: 21604 Subs Hosp L2
[2022-05-27] MEDS: Furosemide 40 MG/4 ML Vial IV ×2 (10:30→18:26)
[2022-05-27] MEDS: 0.9% Saline Lock 10 ML Syringe IV ×3 (10:32→20:45)
[2022-05-27] MEDS: levoFLOXacin 500 MG Tablet PO (12:14)
[2022-05-27] MEDS: Ascorbic Acid 500 MG Tablet PO (12:14)
[2022-05-27] MEDS: Tamsulosin HCl 0.4 MG Capsule PO (16:22)
[2022-05-27] MEDS: Pravastatin 40 MG Tablet PO (21:02)
[2022-05-28] VITALS (7 sets, daily range): BP systolic 97–112; BP diastolic 35–58; PULSE 78–95; RESP 15–16; TEMP 36.3–36.6; O2SAT 90–98; BMI 37.6
[2022-05-28] MEDS: oxyCODONE 5 MG Tablet PO ×4 (01:08→21:06)
[2022-05-28] MEDS: Acetaminophen 500 MG Tablet 1000 MG PO ×3 (06:28→21:06)
[2022-05-28] MEDS: levoFLOXacin 250 MG Tablet PO (06:28)
[2022-05-28 06:48] LABS: Magnesium 1.8 mg/dL (1.6-2.6)
[2022-05-28] MEDS: Magnesium Chloride 64 MG Delay Rel.Tablet 128 MG PO ×2 (08:17→21:06)
[2022-05-28] MEDS: dilTIAZem CD 120 MG Capsule PO (08:17)
[2022-05-28] MEDS: Potassium Chloride Oral Tablet 20 MEQ PO (08:17)
[2022-05-28] MEDS: Pantoprazole Sodium 40 MG Tablet PO ×2 (08:17→21:07)
[2022-05-28] MEDS: Calcium Carbonate 500 MG Tablet PO ×3 (08:17→15:49)
[2022-05-28] MEDS: Metoprolol Tartrate 50 MG Tablet 75 MG PO ×2 (08:17→21:06)
[2022-05-28] MEDS: Isosorbide Mononitrate 30 MG Tablet PO (08:18)
[2022-05-28] MEDS: Lisinopril 5 MG Tablet PO (08:18)
[2022-05-28] MEDS: Menthol/Lanolin/Calamine/Znox 113 GM Tube 1 APPLIC TOPICAL ×2 (08:19→21:05)
[2022-05-28] MEDS: Cholecalciferol (VIT D3) 25 MCG TABLET (1,000 UNITS) PO (08:19)
[2022-05-28] MEDS: Nystatin Powder 15gm Bottle 1 APPLIC TOPICAL ×2 (08:19→21:05)
--- NOTE | 2022-05-28 08:45 | CASEMGMT ---
Social Work Pt requested to speak with this worker. SW spoke with pt. Answered questions. Pt explained she spoke with her employer, Roberto [employer]alcava at [employer], whom was asking when pt would be discharged and able to return to work. Pt expressed feeling pressured by employer to DC and return to work, and overwhelmed with the worker's comp process. SW provided emotional support and offered to speak with employer to answer questions directly. SW assured pt the goal is for pt to receive a full recovery and return home safely. Explained worker's comp is paying for the RU stay and completing reviews weekly. Worker's Comp will decide when pt is ready to DC, along with IDT and pt collaboration. SW inquired if pt plans to return to work. Pt stated she needs the income. SW discussed finances. Pt expressed strain. SW offered Medicaid. Pt agreed to complete application for any assistance. SW provided CARRI dimple to pt. Pt expressed appreciation. SW received call from new test company (through worker's comp) [employer] [phone], who scheduled a time to visit pt and answer questions. [employer] plans to visit pt 06/27 about noon. SW updated therapy and nursing. SW to continue to follow. Meaghan Perez, [employer]
--- NOTE | 2022-05-28 10:16 | NURSING ---
spoke with Aubrie at Dr Samuels office, office is to call back with staple dc orders
[2022-05-28] MEDS: Furosemide 40 MG/4 ML Vial IV (10:19)
[2022-05-28] MEDS: 0.9% Saline Lock 10 ML Syringe IV ×2 (10:20→21:04)
--- NOTE | 2022-05-28 10:24 | PCM.PROGNOTE ---
Subjective Subjective Afebrile VSS -heart rate is in the 90s today. Blood pressure is still on the low side. She is tilt negative today. Maintaining appropriate oxygen saturation on RA -90-94% on room air Oral intake was poor for breakfast today. She ate 25 to 49%. Last night for supper she only ate 25 to 49% but for breakfast and lunch yesterday she ate 50 to 74%. Fluid intake yesterday orally was only 830 but she had 2100 out. Fluid balance was -1270 and overnight she was -1098 for a total of 3.618 since the IV Lasix was started. Weight today is 173.9 pounds down from 182.3 pounds on Thursday. Discussed with nursing - Still with a large amount of serosanguineous drainage from the incisions on the RLE. She complained of some burning in her toes last night. Reviewed the PT/OT/ST notes Medication list reviewed. Urine culture grew Citrobacter Freundii which was resistant to cefazolin and ceftriaxone. It is sensitive to levofloxacin. Mag is 1.8 today and the BMP and CBC are pending. Rhea tells me that she was feeling down yesterday because Workman's comp people are wanting to know how long she will be in rehab or SNF and when she can go back to work. When she goes home it will not be to her trailer.......she will be living with 2 friends for a while. She had some burning in her toes last night when lying down in bed. It is not there now. I suspect this is due to compression of the femoral nerve in the groin from all the swelling. No chills or sweats. Denies SOB, CP, N/V/abd pain, lightheadedness. She does have some pain in the R groin.......This is likely due to the hip surgery/fracture. Objective Data Objective Data Vital Signs: Vital Signs Temp Pulse Resp BP Pulse Ox O2 Del Method O2 Flow Rate 97.3 F L 90 15 99/35 L 92 Room Air 1 05/28/22 07:23 05/28/22 08:17 05/28/22 07:23 05/28/22 07:24 05/28/22 07:23 05/28/22 07:23 05/27/22 09:00 FiO2 96 05/26/22 22:00 Oxygen Flow Rate (L/min) 1 Oxygen Delivery Method Room Air Weight: 173 lb 15.115 oz Body Mass Index (BMI) 37.6 Intake & Output: Intake and Output for Last 24 Hours 05/26/22 05/27/22 05/28/22 23:59 23:59 23:59 Intake Total 1300 / 1300 830 / 830 60 / 60 Output Total 2550 / 2550 2100 / 2100 1150 / 1150 Balance -1250 / -1250 -1270 / -1270 -1090 / -1090 Lab / Micro Data Result Diagrams: 05/26/22 10:45 05/26/22 10:45 Labs: Laboratory Results - last 24 hr 05/28/22 05:31: Magnesium 1.8 Micro: Microbiology 05/26/22 05:30 Urine Catheter - Courtney Urine Culture - Preliminary 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 Pleasant and cooperative. Good color in her face. Resp normal respiratory effort and clear to auscultation bilaterally Effort and Inspection: Negative for tachypneic Cardio no gallops Cardio Narrative: Irregular irregular with HR in the 90's GI normal to inspection, nondistended, normoactive bowel sounds, soft to palpation and non-distended GI Narrative: No pitting in the flanks. Extremity General Extremity: edema bilateral (pitting to the groin BL) Skin General Skin Exam: no breakdown Rashes: no rashes Wound Narrative: Incisions are intact no dehiscence. There is no sierra-incisional erythema or increased warmth to touch. Ecchymosis is resolving. Still with copious amounts of serous drainage. Drainage has no odor. Assessment & Plan Assessment/Plan (1) Physical debility: (2) Closed fracture of right hip: QUALIFIERS: Encounter type: initial encounter Qualified Code(s): S72.001A - Fracture of unspecified part of neck of right femur, initial encounter for closed fracture (3) Hx of reduction of closed fracture: (4) Urine retention: (5) UTI (urinary tract infection): (6) Acute blood loss anemia: PLAN: Stable (7) Iron deficiency anemia: QUALIFIERS: Iron deficiency anemia type: chronic blood loss Qualified Code(s): D50.0 - Iron deficiency anemia secondary to blood loss (chronic) PLAN: She has failed oral iron in the past and sees Dr. Marrero for iron infusion. I see no point in having her on an iron supplement since she does not absorb oral iron AND it gives her diarrhea. (8) Moderate to severe pulmonary hypertension: (9) Acute on chronic right heart failure: PLAN: Baseline weight seems to be around 153-155......Continue to diurese. PLAN: Plan 1. Continue therapy 2. Decrease Cardizem CD to 120 mg once daily - If the HR goes up will need to consider starting amiodarone to help with BP control or digoxin because they will not drop the BP.......Would discuss with Dr. Pierce first. 3. await the results of the BMP and CBC. 4. Continue Levaquin for a total of 7 doses. 5. Voiding trial when we transition back to PO Lasix. 6. Her wt in November of 2021 was 153 lbs. It was 135 lbs in October. She weighed 153 in September. Will continue to diurese until we get the wt down to 160 or less. Charges/Coding Visit Charges Inpatient E&M: 91520 Subs Hosp L2
[2022-05-28] MEDS: Ascorbic Acid 500 MG Tablet PO (12:14)
[2022-05-28 13:42] LABS: Absolute Lymphocyte Count 0.48 X10^3/uL (0.83-4.51); Absolute Neutrophil Count 5.6 X10^3/uL (2.0-7.7); Basophil# 0.02 X10^3/uL; Basophil% 0.3 % (0-1); Eosinophil# 0.17 X10^3/uL; Eosinophils% 2.4 % (0-5); Hemoglobin 9.8 g/dL (12.0-15.0); Lymphocyte # 0.48 X10^3/ul (0.83-4.51); Lymphocyte % 6.8 % (19-41); Mean Corp Hgb Conc 31.6 g/dL (32-36); Mean Corpuscular Hgb 31.5 pg (27.0-32.0); Mean Corpuscular Volume 99.7 fL (81-99); Mean Platelet Vol. 8.6 fl (6.2-12.0); Monocyte# 0.71 X10^3/uL; Monocyte% 10.1 % (0-10); NRBC Flagged by Analyzer 0 % (0-5); Neutrophil % 79.8 % (47-70); POSITIVE DIFFERENTIAL YES; Platelet Count 279 K/mm3 (150-450); RBC Distribution Width CV 17.6 % (11.6-14.6); RBC Distribution Width SD 62.2 fl (35.1-43.9); Red Blood Count 3.11 M/mm3 (4.2-5.4)
[2022-05-28 13:43] LABS: Differential Indicated SCAN CRITERIA MET
[2022-05-28 14:45] LABS: Anion Gap 7 (5-15); BUN 14 mg/dL (7-18); BUN/Creat Ratio 11.7 RATIO (10-20); Calcium,Total 9.9 mg/dL (8.5-10.1); Chloride 96 mmol/L (98-107); EST Glomerular Filtration Rate 46 mL/min (>60); Est Glom Filt Rate - Afr Amer 56 mL/min (>60); Estimated Creatinine Clearance 49.68 ml/min; Glucose 123 mg/dL (74-106); Potassium 4.3 mmol/L (3.5-5.1); Sodium Level 132 mmol/L (136-145)
[2022-05-28] MEDS: Tamsulosin HCl 0.4 MG Capsule PO (15:50)
[2022-05-28] MEDS: Pravastatin 40 MG Tablet PO (21:07)
[2022-05-29] VITALS (8 sets, daily range): BP systolic 99–121; BP diastolic 44–67; PULSE 66–89; RESP 16; TEMP 36.6–37; O2SAT 91–99; BMI 37.7
[2022-05-29] MEDS: oxyCODONE 5 MG Tablet PO ×5 (01:56→22:42)
[2022-05-29] MEDS: levoFLOXacin 250 MG Tablet PO (05:44)
[2022-05-29] MEDS: Acetaminophen 500 MG Tablet 1000 MG PO ×3 (05:44→21:13)
[2022-05-29 06:21] LABS: Anion Gap 4 (5-15); BUN 15 mg/dL (7-18); Calcium,Total 9.5 mg/dL (8.5-10.1); Chloride 98 mmol/L (98-107); EST Glomerular Filtration Rate 57 mL/min (>60); Est Glom Filt Rate - Afr Amer 69 mL/min (>60); Estimated Creatinine Clearance 59.61 ml/min; Glucose 94 mg/dL (74-106); Potassium 4.2 mmol/L (3.5-5.1); Sodium Level 134 mmol/L (136-145)
[2022-05-29] MEDS: Potassium Chloride Oral Tablet 20 MEQ PO (08:15)
[2022-05-29] MEDS: Calcium Carbonate 500 MG Tablet PO ×3 (08:15→17:16)
[2022-05-29] MEDS: Pantoprazole Sodium 40 MG Tablet PO ×2 (08:16→21:14)
[2022-05-29] MEDS: Magnesium Chloride 64 MG Delay Rel.Tablet 128 MG PO ×2 (08:16→21:14)
[2022-05-29] MEDS: Metoprolol Tartrate 50 MG Tablet 75 MG PO ×2 (08:16→21:14)
[2022-05-29] MEDS: dilTIAZem CD 120 MG Capsule PO (08:17)
[2022-05-29] MEDS: Cholecalciferol (VIT D3) 25 MCG TABLET (1,000 UNITS) PO (08:17)
[2022-05-29] MEDS: Menthol/Lanolin/Calamine/Znox 113 GM Tube 1 APPLIC TOPICAL ×2 (08:18→21:16)
[2022-05-29] MEDS: Isosorbide Mononitrate 30 MG Tablet PO (08:18)
[2022-05-29] MEDS: Nystatin Powder 15gm Bottle 1 APPLIC TOPICAL ×2 (08:18→21:16)
[2022-05-29] MEDS: Furosemide 40 MG/4 ML Vial IV (10:11)
[2022-05-29] MEDS: 0.9% Saline Lock 10 ML Syringe IV (10:11)
--- NOTE | 2022-05-29 12:17 | PCM.PROGNOTE ---
Subjective Subjective Was seen on team rounds today. Her friend Ilene was present in the room and they have been friends for 40 years. Mariaelena is going to live with Ilene while she recovers from hip surgery. Afebrile VSS Maintaining appropriate oxygen saturation on RA Oral fluid intake is poor unless the nurses and therapists are constantly offering water. I&O for 05/28/2022 is 640/2300 with a negative fluid balance of -1660. Weight today is 174 pounds and 3 ounces which is up from 173 pounds and 15 ounces yesterday however I suspect this is not accurate since she is -1660 on 05/28/22 Discussed with nursing - no problems that need addressed Reviewed the PT/OT notes Medication list reviewed. All lab was personally reviewed. Sodium is 134 today with a potassium of 4.2. Chloride is up to 98 and the BUN is 15 with a creatinine of 1.0 which is down from 1.2 yesterday. IV furosemide was decreased to 40 mg once daily on Mariaelena denies lightheadedness, vertigo, CP, SOB at rest, SOB with exertion, cough, nausea, vomiting, abd pain, diarrhea, constipation, dysuria, calf pain and ankle swelling. The urine in the Courtney bag and tubing is clear and pale yellow. Objective Data Objective Data Vital Signs: Vital Signs Temp Pulse Resp BP Pulse Ox O2 Del Method O2 Flow Rate 98.6 F 66 16 121/67 H 99 Room Air 1 05/29/22 07:46 05/29/22 08:48 05/29/22 07:46 05/29/22 08:48 05/29/22 09:25 05/29/22 09:25 05/27/22 09:00 FiO2 96 05/26/22 22:00 Oxygen Flow Rate (L/min) 1 Oxygen Delivery Method Room Air Weight: 174 lb 2.643 oz Body Mass Index (BMI) 37.7 Intake & Output: Intake and Output for Last 24 Hours 05/27/22 05/28/22 05/29/22 23:59 23:59 23:59 Intake Total 830 / 830 640 / 640 200 / 200 Output Total 2100 / 2100 2300 / 2450 450 / 450 Balance -1270 / -1270 -1660 / -1810 -250 / -250 Lab / Micro Data Result Diagrams: 05/28/22 13:32 05/29/22 05:41 Labs: Laboratory Results - last 24 hr 05/28/22 13:32: WBC 7.0, RBC 3.11 L, Hgb 9.8 L, Hct 31.0 L, MCV 99.7 H, MCH 31.5, MCHC 31.6 L, RDW Std Deviation 62.2 H, RDW Coeff of Oralia 17.6 H, Plt Count 279, MPV 8.6, Immature Gran % (Auto) 0.600, Neut % (Auto) 79.8 H, Lymph % (Auto) 6.8 L, [place] % (Auto) 10.1 H, Eos % (Auto) 2.4, Baso % (Auto) 0.3, Absolute Neuts (auto) 5.6, Absolute Lymphs (auto) 0.48 L, Nucleated RBC % 0 05/28/22 13:32: Sodium 132 L, Potassium 4.3, Chloride 96 L, Carbon Dioxide 29.0, Anion Gap 7, BUN 14, Creatinine 1.20 H, Estim Creat Clear Calc 49.68, Est GFR (MDRD) Af Amer 56 L, Est GFR (MDRD) Non-Af 46 L, BUN/Creatinine Ratio 11.7, Glucose 123 H, Calcium 9.9 05/29/22 05:41: Sodium 134 L, Potassium 4.2, Chloride 98, Carbon Dioxide 32.0, Anion Gap 4 L, BUN 15, Creatinine 1.00, Estim Creat Clear Calc 59.61, Est GFR (MDRD) Af Amer 69, Est GFR (MDRD) Non-Af 57 L, BUN/Creatinine Ratio 15.0, Glucose 94, Calcium 9.5 Micro: Microbiology 05/26/22 05:30 Urine Catheter - Courtney Urine Culture - Final Citrobacter freundii 05/21/22 12:00 Urine, Clean Catch Urine Culture - Final Mixed Gram Pos & Gram Neg Org Physical Exam Const alert, oriented x3 and no apparent distress Resp normal respiratory effort, normal air movement and clear to auscultation bilaterally Resp Narrative: No conversational dyspnea Effort and Inspection: able to speak in complete sentences; Negative for tachypneic, respiratory distress, pursed lip breathing or actively coughing Cardio no gallops Cardio Narrative: Irregular irregular with HR in the 90's Jugular Venous Distention: Negative for JVD GI normal to inspection, nondistended, normoactive bowel sounds, soft to palpation, non-tender and no masses; Negative for hepatosplenomegaly GI Narrative: No pitting in the flanks. no CVA tenderness Extremity no calf tenderness Extremity Narrative: Still with pitting edema to the groin bilaterally. Skin Skin Narrative: There is a large amount of drainage from the R hip. Not purulent in nature and no odor......mostly serosanguineous......likely due to the pitting edema of the legs to the groin. General Skin Exam: no breakdown Rashes: no rashes Neuro oriented x3, CN's II-XII intact bilaterally, moves all extremities and no sensory deficits noted Assessment & Plan Assessment/Plan (1) Physical debility: (2) Closed fracture of right hip: QUALIFIERS: Encounter type: initial encounter Qualified Code(s): S72.001A - Fracture of unspecified part of neck of right femur, initial encounter for closed fracture (3) Hx of reduction of closed fracture: (4) Urine retention: (5) UTI (urinary tract infection): (6) Acute blood loss anemia: PLAN: Stable (7) Iron deficiency anemia: QUALIFIERS: Iron deficiency anemia type: chronic blood loss Qualified Code(s): D50.0 - Iron deficiency anemia secondary to blood loss (chronic) PLAN: She has failed oral iron in the past and sees Dr. Marrero for iron infusion. I see no point in having her on an iron supplement since she does not absorb oral iron AND it gives her diarrhea. (8) Moderate to severe pulmonary hypertension: (9) Acute on chronic right heart failure: PLAN: Baseline weight seems to be around 153-155......Continue to diurese. Etiology of the swelling is decompensated R heart failure due to pulmonary HTN PLAN: Plan 1. Continue therapy 2. Continue Lasix 40 mg IV daily for fluid loss of approximately 1500 cc daily. Still have approximately 15 pounds of fluid to lose. Still with pitting edema of the posterior thighs but no pitting edema of the flank. 3. We will have her do daily weights at home postdischarge so that acute right heart failure on chronic right heart failure is not an issue. 4. Recheck lab over the weekend. Charges/Coding Visit Charges Inpatient E&M: 25323 Subs Hosp L2
[2022-05-29] MEDS: Ascorbic Acid 500 MG Tablet PO (12:53)
--- NOTE | 2022-05-29 13:33 | PN.ORTHO_ITS ---
Subjective Subjective Patient seen and examined. She states she is doing well with rehab. She states she walked 40 feet yesterday with a walker and was able to stand for 15 minutes. She denies significant pain other than with weightbearing on her right hip. Patient has had a Courtney catheter placed for diuresis due to 30 pound fluid r etention since November. She continues with diuresis currently. She reports serous drainage from her right hip incisions, denies any redness, foul-smelling fluid drainage. Objective Data Objective Data Vital Signs: Vital Signs Temp Pulse Resp BP Pulse Ox O2 Del Method O2 Flow Rate 98.6 F 66 16 121/67 H 99 Room Air 1 05/29/22 07:46 05/29/22 08:48 05/29/22 07:46 05/29/22 08:48 05/29/22 09:25 05/29/22 09:25 05/27/22 09:00 FiO2 96 05/26/22 22:00 Oxygen Flow Rate (L/min) 1 Oxygen Delivery Method Room Air Weight: 174 lb 2.643 oz Body Mass Index (BMI) 37.7 Intake & Output: Intake and Output for Last 24 Hours 05/27/22 05/28/22 05/29/22 23:59 23:59 23:59 Intake Total 830 / 830 640 / 640 320 / 320 Output Total 2100 / 2100 2300 / 2450 450 / 450 Balance -1270 / -1270 -1660 / -1810 -130 / -130 Lab / Micro Data Result Diagrams: 05/28/22 13:32 05/29/22 05:41 Labs: Laboratory Results - last 24 hr 05/28/22 13:32: WBC 7.0, RBC 3.11 L, Hgb 9.8 L, Hct 31.0 L, MCV 99.7 H, MCH 31.5, MCHC 31.6 L, RDW Std Deviation 62.2 H, RDW Coeff of Oralia 17.6 H, Plt Count 279, MPV 8.6, Immature Gran % (Auto) 0.600, Neut % (Auto) 79.8 H, Lymph % (Auto) 6.8 L, [place] % (Auto) 10.1 H, Eos % (Auto) 2.4, Baso % (Auto) 0.3, Absolute Neuts (auto) 5.6, Absolute Lymphs (auto) 0.48 L, Nucleated RBC % 0 05/28/22 13:32: Sodium 132 L, Potassium 4.3, Chloride 96 L, Carbon Dioxide 29.0, Anion Gap 7, BUN 14, Creatinine 1.20 H, Estim Creat Clear Calc 49.68, Est GFR (MDRD) Af Amer 56 L, Est GFR (MDRD) Non-Af 46 L, BUN/Creatinine Ratio 11.7, Glucose 123 H, Calcium 9.9 05/29/22 05:41: Sodium 134 L, Potassium 4.2, Chloride 98, Carbon Dioxide 32.0, Anion Gap 4 L, BUN 15, Creatinine 1.00, Estim Creat Clear Calc 59.61, Est GFR (MDRD) Af Amer 69, Est GFR (MDRD) Non-Af 57 L, BUN/Creatinine Ratio 15.0, Glucose 94, Calcium 9.5 Micro: Microbiology 05/26/22 05:30 Urine Catheter - Courtney Urine Culture - Final Citrobacter freundii 05/21/22 12:00 Urine, Clean Catch Urine Culture - Final Mixed Gram Pos & Gram Neg Org Physical Exam Narrative General - A&Ox3, NAD. VSS/AF Right lower extremity -incisions are well approximated with evie and skin appears to be healed. There is no dehiscence. There is trace serous fluid noted on dry sterile dressings. SILT Sural, Saphenous, SPN, DPN, Tibial N. distributions. DP, PT 2+. BCR. DF, PF, EHL 5/5. Negative Homans' sign swati aterally. Pitting edema is noted bilaterally. Assessment & Plan Assessment/Plan (1) Hx of reduction of closed fracture: PLAN: Patient seen and examined. She is 2 weeks status post right hip nailing. She is mobilizing well with therapy. Drainage from the wounds are expected with her significant fluid retention. Agree with diuresis per primary. Continue weightbearing as tolerated right lower extremity. Continue PT/OT. I will obtain a routine 2-week postoperative x-ray of the right femur. [place] to be removed by nursing staff today. Plan to follow-up in approximately 1 month for routine 6-week follow-up in the office. I encouraged staff to contact if any questions or concerns arise in the interim.
--- NOTE | 2022-05-29 15:37 | CASEMGMT ---
Social Work IDT met with patient and friend for Team meeting. Discussed patient's progress in PT/OT/SN. Educated to worker's comp insurance approving with [employer] 06/03 and continued stay is not guaranteed. Pt's plan is to DC to friends house - address added in [facility] -with skilled HHC. SW assisted pt in completing CARRI dimple and faxed to S. Pt also provided this worker with Roberto Carlos, employer's phone number. SW left voicemail with Roberto Carlos offering to answer questions. Will ReTeam next week. SW to continue to follow. MARLINE HoffW
[2022-05-29] MEDS: Tamsulosin HCl 0.4 MG Capsule PO (17:16)
[2022-05-29] MEDS: Pravastatin 40 MG Tablet PO (21:13)
--- NOTE | 2022-05-29 21:15 | NURSING ---
Pt refusing stool softeners this evening, noted to have been refusing them. Explained to pt that she is taking more pain meds and that can cause constipation, pt states well I had a huge bowel movement yesterday and before that I had loose stools, and I don't want that to happen again. Also explained to pt that Senokot stool softeners are not a laxative and only help keep the stool soft so she won't have to strain. Pt states that she will take them in the morning if she does not have a bowel movement. Pt denies feeling constipated, states it is normal for her to go a couple days between bowel movements. Bowel sounds normoactive at this time, will continue to encourage fluids and taking the senna.
[2022-05-30] MEDS: 0.9% Saline Lock 10 ML Syringe IV ×3 (05:41→21:22)
[2022-05-30] MEDS: levoFLOXacin 250 MG Tablet PO (05:57)
[2022-05-30] MEDS: Acetaminophen 500 MG Tablet 1000 MG PO ×3 (05:57→21:25)
[2022-05-30] MEDS: oxyCODONE 5 MG Tablet PO ×3 (05:58→21:22)
--- NOTE | 2022-05-30 06:00 | NURSING ---
Noted during hygiene care this am that bilat lower legs are more edematous, on right lower leg, noted to have shiny, red skin with small blister forming. Note left for Dr. Devlin to address this am.
[2022-05-30 08:14] VITALS: BP 109/52; PULSE 82; RESP 16; TEMP 36.3; O2SAT 93
[2022-05-30] MEDS: Potassium Chloride Oral Tablet 20 MEQ PO (08:18)
[2022-05-30] MEDS: Calcium Carbonate 500 MG Tablet PO ×3 (08:18→16:37)
[2022-05-30 08:19] VITALS: BP 109/52; PULSE 82
[2022-05-30] MEDS: Metoprolol Tartrate 50 MG Tablet 75 MG PO ×2 (08:19→21:25)
[2022-05-30] MEDS: Magnesium Chloride 64 MG Delay Rel.Tablet 128 MG PO ×2 (08:19→21:24)
[2022-05-30] MEDS: Cholecalciferol (VIT D3) 25 MCG TABLET (1,000 UNITS) PO (08:19)
[2022-05-30] MEDS: Isosorbide Mononitrate 30 MG Tablet PO (08:19)
[2022-05-30] MEDS: dilTIAZem CD 120 MG Capsule PO (08:19)
[2022-05-30] MEDS: Pantoprazole Sodium 40 MG Tablet PO ×2 (08:19→21:24)
[2022-05-30] MEDS: Senna/Docusate Sodium 1 Tablet 2 TABLET PO ×2 (08:20→21:24)
--- NOTE | 2022-05-30 09:51 | VDLE_ITS ---
Reason For Study: swelling RIGHT LEFT GSV is normal. GSV is normal. CFV is compressible, spontaneous, phasic, CFV is compressible, spontaneous, phasic, competent and demonstrates normal competent, and demonstrates normal augmentation. augmentation. FV is compressible, spontaneous, phasic, FV is compressible, spontaneous, phasic, competent and demonstrates normal competent and demonstrates normal augmentation. augmentation. POP V is compressible, spontaneous, phasic, POP V is compressible, spontaneous, phasic, competent and demonstrates normal competent and demonstrates normal augmentation. augmentation. T/P Trunk is compressible. T/P Trunk is compressible. PTV is compressible. PTV is compressible. RT PerV is compressible. LT PerV is compressible. Procedure This is a venous duplex using B-mode, color flow and spectral Doppler. Exam performed in department. The exam was diagnostic. A preliminary report was called and/or faxed to the pt's RN. VL/Venous Duplex US - Alejo Extrem Interpretation Summary Deep veins of the bilateral lower extremities are patent and compressible segme ntally. There is no evidence of bilateral lower extremity deep vein thrombosis. The bilateral great saphenous veins appear patent and compressible segmentally. Ordering Physician: Ada Devlin Performed By: Miquel Jasso RVT
[2022-05-30] MEDS: Furosemide 40 MG/4 ML Vial IV (10:29)
[2022-05-30] MEDS: Menthol/Lanolin/Calamine/Znox 113 GM Tube 1 APPLIC TOPICAL ×2 (10:29→21:25)
[2022-05-30] MEDS: Nystatin Powder 15gm Bottle 1 APPLIC TOPICAL ×2 (10:35→21:25)
[2022-05-30 11:30] VITALS: BMI 36.6
[2022-05-30] MEDS: Ascorbic Acid 500 MG Tablet PO (12:22)
--- NOTE | 2022-05-30 15:21 | CASEMGMT ---
Social Work Received Medicaid pending number [id number] Waiver application submitted for assistance in the home. MARLINE Hoff
[2022-05-30] MEDS: Tamsulosin HCl 0.4 MG Capsule PO (16:37)
[2022-05-30 19:43] VITALS: BP 108/49; PULSE 83; RESP 18; TEMP 37.2; O2SAT 98
[2022-05-30 21:15] VITALS: O2SAT 95
[2022-05-30] MEDS: Pravastatin 40 MG Tablet PO (21:24)
[2022-05-30 21:25] VITALS: BP 108/49; PULSE 83
[2022-05-31] MEDS: Acetaminophen 500 MG Tablet 1000 MG PO ×3 (05:12→21:12)
[2022-05-31] MEDS: levoFLOXacin 250 MG Tablet PO (05:12)
[2022-05-31 07:09] LABS: Hematocrit 29.5 % (37-47); Hemoglobin 9.5 g/dL (12.0-15.0)
[2022-05-31 07:34] VITALS: BP 105/48; PULSE 96; RESP 18; TEMP 36.8; O2SAT 94
[2022-05-31 07:44] LABS: Anion Gap 4 (5-15); BUN 12 mg/dL (7-18); BUN/Creat Ratio 13.2 RATIO (10-20); Calcium,Total 9.3 mg/dL (8.5-10.1); Chloride 100 mmol/L (98-107); Creatinine, Serum 0.91 mg/dL (0.55-1.02); EST Glomerular Filtration Rate 64 mL/min (>60); Est Glom Filt Rate - Afr Amer 77 mL/min (>60); Estimated Creatinine Clearance 63.85 ml/min; Glucose 92 mg/dL (74-106); Potassium 4.4 mmol/L (3.5-5.1); Sodium Level 134 mmol/L (136-145)
[2022-05-31] MEDS: Calcium Carbonate 500 MG Tablet PO ×3 (08:38→16:47)
[2022-05-31] MEDS: Potassium Chloride Oral Tablet 20 MEQ PO (08:38)
[2022-05-31] MEDS: Isosorbide Mononitrate 30 MG Tablet PO (08:39)
[2022-05-31] MEDS: Magnesium Chloride 64 MG Delay Rel.Tablet 128 MG PO ×2 (08:40→21:10)
[2022-05-31] MEDS: Furosemide 40 MG/4 ML Vial IV (08:40)
[2022-05-31 08:41] VITALS: PULSE 96
[2022-05-31] MEDS: Metoprolol Tartrate 50 MG Tablet 75 MG PO ×2 (08:41→21:10)
[2022-05-31] MEDS: Pantoprazole Sodium 40 MG Tablet PO ×2 (08:41→21:09)
[2022-05-31] MEDS: dilTIAZem CD 120 MG Capsule PO (08:44)
[2022-05-31] MEDS: Cholecalciferol (VIT D3) 25 MCG TABLET (1,000 UNITS) PO (08:46)
[2022-05-31] MEDS: oxyCODONE 5 MG Tablet PO ×3 (08:55→20:54)
[2022-05-31] MEDS: Menthol/Lanolin/Calamine/Znox 113 GM Tube 1 APPLIC TOPICAL ×2 (08:56→21:11)
[2022-05-31] MEDS: Nystatin Powder 15gm Bottle 1 APPLIC TOPICAL ×2 (08:57→21:09)
[2022-05-31] MEDS: Senna/Docusate Sodium 1 Tablet 2 TABLET PO ×2 (10:57→21:09)
[2022-05-31] MEDS: Ascorbic Acid 500 MG Tablet PO (11:01)
[2022-05-31] MEDS: Tamsulosin HCl 0.4 MG Capsule PO (16:47)
[2022-05-31 17:55] VITALS: O2SAT 93
[2022-05-31 19:29] VITALS: BP 97/57; PULSE 82; RESP 16; TEMP 36.3; O2SAT 99
[2022-05-31] MEDS: 0.9% Saline Lock 10 ML Syringe IV (21:07)
[2022-05-31] MEDS: Pravastatin 40 MG Tablet PO (21:09)
[2022-05-31 21:10] VITALS: PULSE 82
[2022-05-31 21:15] VITALS: PULSE 82; O2SAT 94
[2022-06-01] MEDS: oxyCODONE 5 MG Tablet PO ×3 (01:25→21:23)
[2022-06-01] MEDS: Sodium Chloride 0.65% 1 SPRAY SPRAY.BTL NASAL (01:26)
[2022-06-01] MEDS: levoFLOXacin 250 MG Tablet PO (05:41)
[2022-06-01] MEDS: Acetaminophen 500 MG Tablet 1000 MG PO ×3 (05:41→21:23)
[2022-06-01 06:14] VITALS: BMI 35.4
[2022-06-01 07:35] VITALS: BP 102/43; PULSE 81; RESP 17; TEMP 36.8; O2SAT 95
[2022-06-01] MEDS: Calcium Carbonate 500 MG Tablet PO ×3 (08:30→16:37)
[2022-06-01] MEDS: Potassium Chloride Oral Tablet 20 MEQ PO (08:30)
[2022-06-01] MEDS: 0.9% Saline Lock 10 ML Syringe IV ×2 (08:36→21:25)
[2022-06-01] MEDS: Cholecalciferol (VIT D3) 25 MCG TABLET (1,000 UNITS) PO (08:36)
[2022-06-01] MEDS: dilTIAZem CD 120 MG Capsule PO (08:37)
[2022-06-01] MEDS: Furosemide 40 MG/4 ML Vial IV (08:37)
[2022-06-01] MEDS: Isosorbide Mononitrate 30 MG Tablet PO (08:37)
[2022-06-01] MEDS: Senna/Docusate Sodium 1 Tablet 2 TABLET PO (08:37)
[2022-06-01] MEDS: Magnesium Chloride 64 MG Delay Rel.Tablet 128 MG PO ×2 (08:37→21:24)
[2022-06-01] MEDS: Pantoprazole Sodium 40 MG Tablet PO ×2 (08:37→21:24)
[2022-06-01 08:38] VITALS: PULSE 81
[2022-06-01] MEDS: Metoprolol Tartrate 50 MG Tablet 75 MG PO ×2 (08:38→21:24)
[2022-06-01] MEDS: Menthol/Lanolin/Calamine/Znox 113 GM Tube 1 APPLIC TOPICAL ×2 (08:38→21:27)
[2022-06-01] MEDS: Nystatin Powder 15gm Bottle 1 APPLIC TOPICAL ×2 (08:38→21:26)
[2022-06-01] MEDS: Ascorbic Acid 500 MG Tablet PO (14:10)
[2022-06-01] MEDS: Tamsulosin HCl 0.4 MG Capsule PO (16:37)
[2022-06-01 19:25] VITALS: BP 102/54; PULSE 76; RESP 16; TEMP 36.8; O2SAT 98
[2022-06-01 21:24] VITALS: PULSE 78
[2022-06-01] MEDS: Pravastatin 40 MG Tablet PO (21:24)
[2022-06-01 22:00] VITALS: PULSE 85; RESP 16
[2022-06-02 05:47] VITALS: BMI 33.8
[2022-06-02] MEDS: Acetaminophen 500 MG Tablet 1000 MG PO ×3 (05:53→22:21)
[2022-06-02] MEDS: levoFLOXacin 250 MG Tablet PO (05:53)
[2022-06-02 07:30] VITALS: BP 110/55; PULSE 76; RESP 15; TEMP 36.3; O2SAT 96
[2022-06-02] MEDS: Potassium Chloride Oral Tablet 20 MEQ PO (08:05)
[2022-06-02 08:06] VITALS: BP 110/55; PULSE 76
[2022-06-02] MEDS: Calcium Carbonate 500 MG Tablet PO ×3 (08:06→16:48)
[2022-06-02] MEDS: Magnesium Chloride 64 MG Delay Rel.Tablet 128 MG PO ×2 (08:06→22:20)
[2022-06-02] MEDS: Metoprolol Tartrate 50 MG Tablet 75 MG PO ×2 (08:06→22:20)
[2022-06-02] MEDS: Pantoprazole Sodium 40 MG Tablet PO ×2 (08:06→22:22)
[2022-06-02] MEDS: Cholecalciferol (VIT D3) 25 MCG TABLET (1,000 UNITS) PO (08:06)
[2022-06-02] MEDS: Isosorbide Mononitrate 30 MG Tablet PO (08:06)
[2022-06-02] MEDS: dilTIAZem CD 120 MG Capsule PO (08:06)
[2022-06-02] MEDS: Senna/Docusate Sodium 1 Tablet 2 TABLET PO (08:07)
[2022-06-02] MEDS: Menthol/Lanolin/Calamine/Znox 113 GM Tube 1 APPLIC TOPICAL ×2 (08:10→22:20)
[2022-06-02] MEDS: Sodium Chloride 0.65% 1 SPRAY SPRAY.BTL NASAL (08:10)
[2022-06-02] MEDS: Nystatin Powder 15gm Bottle 1 APPLIC TOPICAL ×2 (08:11→22:22)
--- NOTE | 2022-06-02 09:36 | PCM.PROGNOTE ---
Subjective Subjective Afebrile VSS -heart rate is well controlled and the blood pressure today is 110/55. Maintaining appropriate oxygen saturation on RA Oral food intake is good. Fluid intake is also good now. Fluid balance for 06/01/2022 was -1440. Weight is down to 156.5 Discussed with nursing - no problems that need addressed Reviewed the PT/OT notes Medication list reviewed. All lab from 05/31/22 was reviewed. Creat is improving with diuresis. Hemoglobin is 9.5. Sodium is stable at 134 and the potassium was 4.4. Lab from today was personally reviewed. Hemoglobin has improved and is now 10.3. Sodium is 135 today and the potassium is 4.1. The BUN is 9 and the creatinine is 0.89. Mariaelena denies lightheadedness, vertigo, CP, SOB at rest, SOB with exertion, cough, nausea, vomiting, abd pain, diarrhea, constipation, dysuria, calf pain and ankle swelling. She is sleeping well and has a goo appetite. tells me that prior to coming to rehab she would have gotten SOB with ambulation but, this has gotten much better and she is ambulating to the therapy room and back with no TERRAZAS. She is worried about some redness in the anterior distal LE.......I think this is due to venous insufficiency......no opening in the skin. The dressing was dry yesterday when it was removed and it was dry again today. Objective Data Objective Data Vital Signs: Vital Signs Temp Pulse Resp BP Pulse Ox O2 Del Method O2 Flow Rate 97.3 F L 76 15 110/55 L 96 Room Air 1 06/02/22 07:30 06/02/22 08:06 06/02/22 07:30 06/02/22 08:06 06/02/22 07:30 06/02/22 07:30 05/27/22 09:00 FiO2 96 05/26/22 22:00 Oxygen Flow Rate (L/min) 1 Oxygen Delivery Method Room Air Weight: 156 lb 8.451 oz Body Mass Index (BMI) 33.8 Intake & Output: Intake and Output for Last 24 Hours 05/31/22 06/01/22 06/02/22 23:59 23:59 23:59 Intake Total 2260 / 2260 1860 / 1860 310 / 310 Output Total 2750 / 3300 3100 / 3100 1050 / 1050 Balance -490 / -1040 -1240 / -1240 -740 / -740 Lab / Micro Data Result Diagrams: 06/02/22 09:44 06/02/22 09:44 Micro: Microbiology 05/26/22 05:30 Urine Catheter - Courtney Urine Culture - Final Citrobacter freundii 05/21/22 12:00 Urine, Clean Catch Urine Culture - Final Mixed Gram Pos & Gram Neg Org Radiography Diagnostic Testing: Radiology Impression Venous Doppler Study 05/30/22 09:51 Interpretation Summary Deep veins of the bilateral lower extremities are patent and compressible segmentally. There is no evidence of bilateral lower extremity deep vein thrombosis. The bilateral great saphenous veins appear patent and compressible segmentally. Ordering Physician: Ada Devlin Performed By: Miquel Jasso RVJuan Carlos Physical Exam Const alert, oriented x3 and no apparent distress General Appearance: cooperative HEENT HEENT Narrative: mildy dry MM Resp normal respiratory effort, normal air movement and clear to auscultation bilaterally Effort and Inspection: Negative for tachypneic or labored Cardio no gallops Cardio Narrative: Irregular irregular rhythm with controlled ventricular response. GI normal to inspection, nondistended, normoactive bowel sounds, soft to palpation and non-tender GI Narrative: No guarding with palpation Extremity Extremity Narrative: Still with some edema distal to the knees but no pitting edema above the knees today. Skin General Skin Exam: no breakdown Rashes: no rashes Assessment & Plan Assessment/Plan (1) Physical debility: (2) Closed fracture of right hip: QUALIFIERS: Encounter type: initial encounter Qualified Code(s): S72.001A - Fracture of unspecified part of neck of right femur, initial encounter for closed fracture (3) Hx of reduction of closed fracture: (4) Urine retention: (5) UTI (urinary tract infection): PLAN: Resolved (6) Acute blood loss anemia: PLAN: Stable (7) Iron deficiency anemia: QUALIFIERS: Iron deficiency anemia type: chronic blood loss Qualified Code(s): D50.0 - Iron deficiency anemia secondary to blood loss (chronic) PLAN: She has failed oral iron in the past and sees Dr. Marrero for iron infusion. I see no point in having her on an iron supplement since she does not absorb oral iron AND it gives her diarrhea. (8) Moderate to severe pulmonary hypertension: (9) Acute on chronic right heart failure: PLAN: PLAN: Plan 1. Continue therapy 2. Discontinue IV Lasix and transition to oral Lasix in the a.m. 3. Advised her to obtain a digital scale and to weigh herself daily every morning after urinating Charges/Coding Visit Charges Inpatient E&M: 35478 Subs Hosp L2
[2022-06-02 09:59] LABS: Hematocrit 33.1 % (37-47); Hemoglobin 10.3 g/dL (12.0-15.0)
[2022-06-02] MEDS: oxyCODONE 5 MG Tablet PO ×3 (10:06→22:22)
[2022-06-02] MEDS: Furosemide 40 MG/4 ML Vial IV (10:06)
[2022-06-02] MEDS: 0.9% Saline Lock 10 ML Syringe IV (10:06)
[2022-06-02 10:10] LABS: Anion Gap 6 (5-15); BUN 9 mg/dL (7-18); BUN/Creat Ratio 10.1 RATIO (10-20); Calcium,Total 9.3 mg/dL (8.5-10.1); Chloride 99 mmol/L (98-107); Creatinine, Serum 0.89 mg/dL (0.55-1.02); EST Glomerular Filtration Rate 66 mL/min (>60); Est Glom Filt Rate - Afr Amer 80 mL/min (>60); Estimated Creatinine Clearance 60.27 ml/min; Glucose 109 mg/dL (74-106); Potassium 4.1 mmol/L (3.5-5.1); Sodium Level 135 mmol/L (136-145)
[2022-06-02] MEDS: Ascorbic Acid 500 MG Tablet PO (12:52)
[2022-06-02] MEDS: Tamsulosin HCl 0.4 MG Capsule PO (16:48)
[2022-06-02 19:39] VITALS: BP 117/63; PULSE 85; RESP 16; TEMP 37.2; O2SAT 96
[2022-06-02 22:20] VITALS: BP 104/52; PULSE 90
[2022-06-02] MEDS: Pravastatin 40 MG Tablet PO (22:21)
[2022-06-03] MEDS: Acetaminophen 500 MG Tablet 1000 MG PO ×3 (05:30→20:22)
[2022-06-03] MEDS: levoFLOXacin 250 MG Tablet PO (05:30)
[2022-06-03] MEDS: 0.9% Saline Lock 10 ML Syringe IV ×2 (05:34→20:20)
[2022-06-03] MEDS: oxyCODONE 5 MG Tablet PO ×3 (05:35→20:20)
[2022-06-03] MEDS: Sodium Chloride 0.65% 1 SPRAY SPRAY.BTL NASAL ×2 (05:39→20:24)
[2022-06-03 06:00] VITALS: BMI 34.2
--- NOTE | 2022-06-03 06:58 | NURSING ---
Courtney catheter removed, sierra care given. Encouraged pt to call as soon as she feels the urge to void. Pt tolerated well.
[2022-06-03 07:22] VITALS: BP 117/63; PULSE 83; RESP 16; TEMP 36.6; O2SAT 97
[2022-06-03 07:56] VITALS: BP 117/63; PULSE 83
[2022-06-03] MEDS: Potassium Chloride Oral Tablet 20 MEQ PO (07:56)
[2022-06-03] MEDS: Pantoprazole Sodium 40 MG Tablet PO ×2 (07:56→20:21)
[2022-06-03] MEDS: Metoprolol Tartrate 50 MG Tablet 75 MG PO ×2 (07:56→20:22)
[2022-06-03] MEDS: Isosorbide Mononitrate 30 MG Tablet PO (07:56)
[2022-06-03] MEDS: Cholecalciferol (VIT D3) 25 MCG TABLET (1,000 UNITS) PO (07:56)
[2022-06-03] MEDS: Calcium Carbonate 500 MG Tablet PO ×3 (07:56→16:34)
[2022-06-03] MEDS: dilTIAZem CD 120 MG Capsule PO (07:56)
[2022-06-03] MEDS: Magnesium Chloride 64 MG Delay Rel.Tablet 128 MG PO ×2 (07:57→20:21)
[2022-06-03] MEDS: Senna/Docusate Sodium 1 Tablet 2 TABLET PO ×2 (07:57→20:22)
[2022-06-03] MEDS: Nystatin Powder 15gm Bottle 1 APPLIC TOPICAL ×2 (08:00→20:25)
[2022-06-03] MEDS: Menthol/Lanolin/Calamine/Znox 113 GM Tube 1 APPLIC TOPICAL ×2 (08:00→20:24)
[2022-06-03] MEDS: Furosemide 40 MG Tablet PO (11:57)
[2022-06-03] MEDS: Ascorbic Acid 500 MG Tablet PO (11:57)
[2022-06-03] MEDS: Tamsulosin HCl 0.4 MG Capsule PO (16:34)
[2022-06-03 19:22] VITALS: BP 139/67; PULSE 87; RESP 14; TEMP 36.7; O2SAT 99
[2022-06-03 20:00] VITALS: O2SAT 98
[2022-06-03] MEDS: Pravastatin 40 MG Tablet PO (20:21)
[2022-06-03 20:22] VITALS: BP 139/67; PULSE 87
[2022-06-04] MEDS: oxyCODONE 5 MG Tablet PO ×4 (04:46→21:12)
[2022-06-04] MEDS: Acetaminophen 500 MG Tablet 1000 MG PO ×3 (04:46→21:02)
[2022-06-04 06:00] VITALS: BMI 34.1
[2022-06-04 07:26] VITALS: BP 119/52; PULSE 81; RESP 18; TEMP 37.1; O2SAT 97
[2022-06-04] MEDS: Potassium Chloride Oral Tablet 20 MEQ PO (08:19)
[2022-06-04] MEDS: Calcium Carbonate 500 MG Tablet PO ×3 (08:19→17:11)
[2022-06-04] MEDS: Menthol/Lanolin/Calamine/Znox 113 GM Tube 1 APPLIC TOPICAL ×2 (08:20→21:01)
[2022-06-04] MEDS: dilTIAZem CD 120 MG Capsule PO (08:20)
[2022-06-04] MEDS: Cholecalciferol (VIT D3) 25 MCG TABLET (1,000 UNITS) PO (08:20)
[2022-06-04] MEDS: Isosorbide Mononitrate 30 MG Tablet PO (08:21)
[2022-06-04] MEDS: Furosemide 40 MG Tablet PO (08:21)
[2022-06-04 08:22] VITALS: BP 119/52; PULSE 81
[2022-06-04] MEDS: Metoprolol Tartrate 50 MG Tablet 75 MG PO ×2 (08:22→21:01)
[2022-06-04] MEDS: Magnesium Chloride 64 MG Delay Rel.Tablet 128 MG PO ×2 (08:22→21:02)
[2022-06-04] MEDS: Nystatin Powder 15gm Bottle 1 APPLIC TOPICAL ×2 (08:22→21:03)
[2022-06-04] MEDS: Pantoprazole Sodium 40 MG Tablet PO ×2 (08:23→21:02)
--- NOTE | 2022-06-04 08:56 | PCM.PROGNOTE ---
Subjective Subjective Afebrile VSS Maintaining appropriate oxygen saturation on RA -oxygenation has definitely improved with diuresis. She is 97 to 98% on room air today. Oral intake is good. Fluid balance yesterday was -540. The last 2 post void residuals are 30 and 11. Discussed with nursing - no problems that need addressed Reviewed the PT/OT notes Medication list reviewed. she had an episode of dizziness yesterday when getting into the tub.......this was associated with nausea but, no diaphoresis. She denies vertigo. She has had these episodes at home and sometimes they last a few minutes but other times they can last a day or so. Denies diaphoresis with the episode yestereday. NO CP, no plapitations. Objective Data Objective Data Vital Signs: Vital Signs Temp Pulse Resp BP Pulse Ox O2 Del Method O2 Flow Rate 98.8 F 81 18 119/52 L 97 Room Air 1 06/04/22 07:26 06/04/22 08:22 06/04/22 07:26 06/04/22 08:22 06/04/22 07:26 06/04/22 07:26 05/27/22 09:00 FiO2 96 05/26/22 22:00 Oxygen Flow Rate (L/min) 1 Oxygen Delivery Method Room Air Weight: 157 lb 13.616 oz Body Mass Index (BMI) 34.1 Intake & Output: Intake and Output for Last 24 Hours 06/02/22 06/03/22 06/04/22 23:59 23:59 23:59 Intake Total 1110 / 1230 1710 / 1910 300 / 300 Output Total 3450 / 3900 2250 / 2250 400 / 400 Balance -2340 / -2670 -540 / -340 -100 / -100 Lab / Micro Data Result Diagrams: 06/09/22 10:12 06/09/22 10:12 Micro: Microbiology 05/26/22 05:30 Urine Catheter - Courtney Urine Culture - Final Citrobacter freundii 05/21/22 12:00 Urine, Clean Catch Urine Culture - Final Mixed Gram Pos & Gram Neg Org Physical Exam Const alert and no apparent distress Resp normal respiratory effort, normal air movement and clear to auscultation bilaterally Resp Narrative: No conversational dyspnea Cardio regular rate, regular rhythm and no gallops GI normal to inspection, nondistended, normoactive bowel sounds, soft to palpation and non-tender GI Narrative: No guarding with palpation Extremity no calf tenderness Extremity Narrative: Edema is much improved. She still has some mild pitting edema of the posterior thighs and a trace of pretibial edema but she has lost at least 30 lbs of excess fluid since admission to rehab. the skin over the distal LE's is wrinkled now. She has mild hyperpigmentation over the distal LE's due to chronic venous stasis. General Extremity: edema bilateral (pitting to the groin BL) Skin General Skin Exam: no breakdown Rashes: no rashes Neuro oriented x3, CN's II-XII intact bilaterally and moves all extremities Assessment & Plan Assessment/Plan (1) Physical debility: (2) Hip fracture requiring operative repair: (3) Venous insufficiency of both lower extremities: (4) Acute on chronic right heart failure: (5) Urine retention: (6) Moderate to severe pulmonary hypertension: (7) Episode of dizziness: PLAN: She does not get diaphoretic with these episodes but she does get nausea. She denies a feeling that the room is spinning but she has difficulty maintaining her balance and has to sit down. Orthostatic vital signs are negative. I do not suspect this is orthostasis as she does not get diaphoretic or have palpitations. We will have the therapist teach her Apley's maneuvers and prescribed as needed Antivert. PLAN: Plan 1. Continue therapy 2. BMP in the a.m. 3. Charges/Coding Visit Charges Inpatient E&M: 99176 Subs Hosp L2
[2022-06-04 10:38] VITALS: BP 101/52; BP 111/50; BP 120/69; PULSE 74; PULSE 79; PULSE 80
[2022-06-04] MEDS: Ascorbic Acid 500 MG Tablet PO (12:36)
[2022-06-04] MEDS: 0.9% Saline Lock 10 ML Syringe IV (12:39)
[2022-06-04] MEDS: Tamsulosin HCl 0.4 MG Capsule PO (17:11)
[2022-06-04 20:00] VITALS: BP 108/55; PULSE 81; RESP 17; TEMP 36.4; O2SAT 98
[2022-06-04 21:01] VITALS: BP 108/55; PULSE 81
[2022-06-04] MEDS: Pravastatin 40 MG Tablet PO (21:02)
[2022-06-04] MEDS: Senna/Docusate Sodium 1 Tablet 2 TABLET PO (21:02)
[2022-06-05] MEDS: Acetaminophen 500 MG Tablet 1000 MG PO ×3 (05:30→22:56)
[2022-06-05] MEDS: oxyCODONE 5 MG Tablet PO ×3 (05:31→23:08)
[2022-06-05 06:43] LABS: Anion Gap 8 (5-15); BUN 9 mg/dL (7-18); BUN/Creat Ratio 11.2 RATIO (10-20); Calcium,Total 9.4 mg/dL (8.5-10.1); Chloride 100 mmol/L (98-107); EST Glomerular Filtration Rate 74 mL/min (>60); Est Glom Filt Rate - Afr Amer 89 mL/min (>60); Estimated Creatinine Clearance 67.62 ml/min; Glucose 89 mg/dL (74-106); Sodium Level 136 mmol/L (136-145)
[2022-06-05] MEDS: Senna/Docusate Sodium 1 Tablet 2 TABLET PO ×2 (07:56→22:56)
[2022-06-05] MEDS: Magnesium Chloride 64 MG Delay Rel.Tablet 128 MG PO ×2 (07:56→22:57)
[2022-06-05] MEDS: Calcium Carbonate 500 MG Tablet PO ×3 (07:56→18:22)
[2022-06-05] MEDS: Potassium Chloride Oral Tablet 20 MEQ PO (07:56)
[2022-06-05] MEDS: Furosemide 40 MG Tablet PO ×2 (07:56→18:23)
[2022-06-05] MEDS: Pantoprazole Sodium 40 MG Tablet PO ×2 (07:56→22:56)
[2022-06-05] MEDS: dilTIAZem CD 120 MG Capsule PO (07:56)
[2022-06-05] MEDS: Isosorbide Mononitrate 30 MG Tablet PO (07:56)
[2022-06-05 08:15] VITALS: BP 105/54; PULSE 83; RESP 16; TEMP 36.4; O2SAT 94
[2022-06-05 08:21] VITALS: BMI 34.0
[2022-06-05 09:34] VITALS: BP 107/60; PULSE 82
[2022-06-05] MEDS: Metoprolol Tartrate 50 MG Tablet 75 MG PO ×2 (09:34→22:57)
[2022-06-05] MEDS: Cholecalciferol (VIT D3) 25 MCG TABLET (1,000 UNITS) PO (09:34)
[2022-06-05] MEDS: Nystatin Powder 15gm Bottle 1 APPLIC TOPICAL (09:36)
[2022-06-05] MEDS: Menthol/Lanolin/Calamine/Znox 113 GM Tube 1 APPLIC TOPICAL ×2 (09:36→22:55)
[2022-06-05] MEDS: 0.9% Saline Lock 10 ML Syringe IV ×2 (09:54→23:08)
--- NOTE | 2022-06-05 11:54 | PCM.PROGNOTE ---
Subjective Subjective Afebrile VSS Maintaining appropriate oxygen saturation on RA Oral intake is good, she took 1360 cc of fluid yesterday. Fluid balance yesterday was -300. Weight today is 157 pounds. Discussed with nursing -night nurses tell me that her right leg is erythematous and possibly has some small blisters. Patient was complaining of pain in both legs distal to the knee. A recent venous ultrasound was negative for DVT. Reviewed the PT/OT notes Medication list reviewed. She had 4 doses of oxycodone 5 mg yesterday. Up to yesterday has been taking 3 tabs daily. All lab was personally reviewed. Sodium is up to 136 today and the potassium is 4.0. BUN is 9 with a creatinine of 0.8 which continues to improve with diuresis. Mariaelena has no complaints other than the pain in the anterior distal lower extremities. The ELEANOR wraps were tight in a few areas causing segmental swelling of the legs. The dorsum of the R foot was more edematous than the left. Mariaelena denies chest pain, cough, lightheadedness, shortness of breath, dysuria and posterior calf pain. Objective Data Objective Data Vital Signs: Vital Signs Temp Pulse Resp BP Pulse Ox O2 Del Method O2 Flow Rate 97.5 F L 82 16 107/60 94 Room Air 1 06/05/22 08:15 06/05/22 09:34 06/05/22 08:15 06/05/22 09:34 06/05/22 08:15 06/05/22 08:15 05/27/22 09:00 FiO2 96 05/26/22 22:00 Oxygen Flow Rate (L/min) 1 Oxygen Delivery Method Room Air Weight: 156 lb 15.506 oz Body Mass Index (BMI) 34.0 Intake & Output: Intake and Output for Last 24 Hours 06/03/22 06/04/22 06/05/22 23:59 23:59 23:59 Intake Total 1710 / 1910 1360 / 1360 50 / 50 Output Total 2250 / 2250 1400 / 1400 700 / 700 Balance -540 / -340 -40 / -40 -650 / -650 Lab / Micro Data Result Diagrams: 06/02/22 09:44 06/05/22 05:29 Labs: Laboratory Results - last 24 hr 06/05/22 05:29: Sodium 136, Potassium 4.0, Chloride 100, Carbon Dioxide 28.0, Anion Gap 8, BUN 9, Creatinine 0.80, Estim Creat Clear Calc 67.62, Est GFR (MDRD) Af Amer 89, Est GFR (MDRD) Non-Af 74, BUN/Creatinine Ratio 11.2, Glucose 89, Calcium 9.4 Micro: Microbiology 05/26/22 05:30 Urine Catheter - Courtney Urine Culture - Final Citrobacter freundii 05/21/22 12:00 Urine, Clean Catch Urine Culture - Final Mixed Gram Pos & Gram Neg Org Physical Exam Const alert and oriented x3 General Appearance: cooperative Resp clear to auscultation bilaterally Cardio no gallops GI normal to inspection, nondistended, normoactive bowel sounds, soft to palpation and non-tender Extremity Extremity Narrative: After the ELEANOR wraps were removed there were ridges circumferentially around the distal leg. There was mild red discoloration of the anterior evans on the left and a deeper red/brown discoloration on the R. There is +1 pitting edema of the distal legs and she still has 1-2+ pitting edema in the posterior thighs. There are no openings in the skin of the distal evans area on the right and I do not appreciate any blister. The skin is wrinkled due to diuresis. The incisions are intact and there is no sierra-incisional erythema and no DC. The dressing on the proximal incision is dry. Skin General Skin Exam: no breakdown Rashes: no rashes Assessment & Plan Assessment/Plan (1) Physical debility: (2) Closed fracture of right hip: QUALIFIERS: Encounter type: initial encounter Qualified Code(s): S72.001A - Fracture of unspecified part of neck of right femur, initial encounter for closed fracture (3) Hx of reduction of closed fracture: (4) Urine retention: (5) UTI (urinary tract infection): (6) Acute blood loss anemia: (7) Iron deficiency anemia: QUALIFIERS: Iron deficiency anemia type: chronic blood loss Qualified Code(s): D50.0 - Iron deficiency anemia secondary to blood loss (chronic) (8) Moderate to severe pulmonary hypertension: (9) Acute on chronic right heart failure: (10) Venous insufficiency of both lower extremities: PLAN: Plan 1. Continue therapy 2. Compression wraps were removed and patient will remain in bed with her legs elevated today when not doing therapy. 3. There is no evidence of cellulitis in either lower extremity so antibiotics are not indicated. 4. Still has significant edema in both lower extremities although it is much better than it was at admission. I discussed increasing the Lasix to 40 mg twice daily with the patient and she is agreeable to this. We will give oral Lasix. Charges/Coding Visit Charges Inpatient E&M: 54805 Subs Hosp L2
--- NOTE | 2022-06-05 12:27 | CASEMGMT ---
Social Work Received Medicaid Pending #[id number] from Cierra Perez, [employer]
[2022-06-05] MEDS: Ascorbic Acid 500 MG Tablet PO (12:36)
--- NOTE | 2022-06-05 13:00 | CASEMGMT ---
Social Work IDT met with patient and friend for Team meeting. Discussed patient's progress in PT/OT/SN. Educated to worker's comp coverage and NRD 06/10. IDT recommending DC 06/11. Pt is agreeable and still plans on DCing to friend's house. Pt will coordinate skilled HHC with WC Rep. No DME needs. Friend to transport. SW emailed WC Rep of DC date and recommendation for skilled HHC. Plan: DC to friend's house 06/11, HHC PT/OT/SN Meaghan Perez, MARLINE JAINW
[2022-06-05] MEDS: Tamsulosin HCl 0.4 MG Capsule PO (18:22)
[2022-06-05 19:38] VITALS: BP 107/49; PULSE 83; RESP 18; TEMP 37.2; O2SAT 95
[2022-06-05] MEDS: Pravastatin 40 MG Tablet PO (22:56)
[2022-06-05 22:57] VITALS: BP 107/49; PULSE 83
[2022-06-06] MEDS: Nystatin Powder 15gm Bottle 1 APPLIC TOPICAL ×3 (00:23→23:15)
--- NOTE | 2022-06-06 02:40 | NURSING ---
Reviewed and agree with Paxton SNEED's, documentation and assessment charting.
[2022-06-06] MEDS: Acetaminophen 500 MG Tablet 1000 MG PO ×3 (06:22→23:14)
[2022-06-06 08:40] VITALS: PULSE 82
[2022-06-06] MEDS: Pantoprazole Sodium 40 MG Tablet PO ×2 (08:40→23:14)
[2022-06-06] MEDS: Senna/Docusate Sodium 1 Tablet 2 TABLET PO (08:40)
[2022-06-06] MEDS: Metoprolol Tartrate 50 MG Tablet 75 MG PO ×2 (08:40→23:12)
[2022-06-06] MEDS: Isosorbide Mononitrate 30 MG Tablet PO (08:40)
[2022-06-06] MEDS: dilTIAZem CD 120 MG Capsule PO (08:42)
[2022-06-06] MEDS: Calcium Carbonate 500 MG Tablet PO ×3 (08:42→16:35)
[2022-06-06] MEDS: Potassium Chloride Oral Tablet 20 MEQ PO (08:42)
[2022-06-06] MEDS: Furosemide 40 MG Tablet PO ×2 (08:42→17:43)
[2022-06-06] MEDS: Cholecalciferol (VIT D3) 25 MCG TABLET (1,000 UNITS) PO (08:42)
[2022-06-06] MEDS: Magnesium Chloride 64 MG Delay Rel.Tablet 128 MG PO ×2 (08:43→23:10)
[2022-06-06] MEDS: Menthol/Lanolin/Calamine/Znox 113 GM Tube 1 APPLIC TOPICAL ×2 (08:43→23:15)
[2022-06-06 09:05] VITALS: BP 107/45; PULSE 82; RESP 16; TEMP 36.9; O2SAT 96
[2022-06-06 10:00] VITALS: BMI 34.0
[2022-06-06] MEDS: Ascorbic Acid 500 MG Tablet PO (11:48)
[2022-06-06] MEDS: oxyCODONE 5 MG Tablet PO ×3 (11:53→23:50)
[2022-06-06] MEDS: Tamsulosin HCl 0.4 MG Capsule PO (16:35)
[2022-06-06 19:17] VITALS: BP 101/47; PULSE 78; RESP 16; TEMP 36.2; O2SAT 94
[2022-06-06 23:12] VITALS: BP 101/47; PULSE 78
[2022-06-06] MEDS: Pravastatin 40 MG Tablet PO (23:14)
[2022-06-06] MEDS: 0.9% Saline Lock 10 ML Syringe IV (23:17)
--- NOTE | 2022-06-07 03:17 | NURSING ---
Reviewed and agree with Paxtno SNEED's, documentation and assessment charting.
[2022-06-07 06:00] VITALS: BMI 32.4
[2022-06-07] MEDS: Acetaminophen 500 MG Tablet 1000 MG PO ×3 (07:30→22:12)
[2022-06-07 08:04] VITALS: BP 125/89; PULSE 79; RESP 20; TEMP 36.6; O2SAT 98
[2022-06-07] MEDS: Magnesium Chloride 64 MG Delay Rel.Tablet 128 MG PO ×2 (08:37→22:13)
[2022-06-07] MEDS: Calcium Carbonate 500 MG Tablet PO ×3 (08:38→15:56)
[2022-06-07] MEDS: dilTIAZem CD 120 MG Capsule PO (08:38)
[2022-06-07] MEDS: Potassium Chloride Oral Tablet 20 MEQ PO (08:39)
[2022-06-07 08:40] VITALS: PULSE 79
[2022-06-07] MEDS: Isosorbide Mononitrate 30 MG Tablet PO (08:40)
[2022-06-07] MEDS: Pantoprazole Sodium 40 MG Tablet PO ×2 (08:40→22:12)
[2022-06-07] MEDS: Metoprolol Tartrate 50 MG Tablet 75 MG PO ×2 (08:40→22:12)
[2022-06-07] MEDS: Cholecalciferol (VIT D3) 25 MCG TABLET (1,000 UNITS) PO (08:40)
[2022-06-07] MEDS: Furosemide 40 MG Tablet PO ×2 (08:40→17:03)
[2022-06-07] MEDS: Nystatin Powder 15gm Bottle 1 APPLIC TOPICAL ×2 (08:41→22:15)
[2022-06-07] MEDS: Menthol/Lanolin/Calamine/Znox 113 GM Tube 1 APPLIC TOPICAL ×2 (08:45→22:15)
[2022-06-07] MEDS: oxyCODONE 5 MG Tablet PO ×3 (10:38→22:11)
[2022-06-07] MEDS: Ascorbic Acid 500 MG Tablet PO (11:21)
[2022-06-07] MEDS: Tamsulosin HCl 0.4 MG Capsule PO (15:56)
[2022-06-07 20:00] VITALS: BP 109/56; PULSE 83; RESP 17; TEMP 36.7; O2SAT 96
[2022-06-07 22:10] VITALS: O2SAT 96
[2022-06-07 22:12] VITALS: BP 109/56; PULSE 83
[2022-06-07] MEDS: Pravastatin 40 MG Tablet PO (22:13)
[2022-06-08] MEDS: Acetaminophen 500 MG Tablet 1000 MG PO ×3 (05:18→21:02)
[2022-06-08 06:00] VITALS: BMI 32.0
[2022-06-08 07:22] VITALS: BP 108/59; PULSE 91; RESP 15; TEMP 36.9; O2SAT 95
[2022-06-08 08:35] VITALS: PULSE 91
[2022-06-08] MEDS: Isosorbide Mononitrate 30 MG Tablet PO (08:35)
[2022-06-08] MEDS: Metoprolol Tartrate 50 MG Tablet 75 MG PO ×2 (08:35→21:03)
[2022-06-08] MEDS: Pantoprazole Sodium 40 MG Tablet PO ×2 (08:35→21:02)
[2022-06-08] MEDS: Furosemide 40 MG Tablet PO ×2 (08:35→16:55)
[2022-06-08] MEDS: Cholecalciferol (VIT D3) 25 MCG TABLET (1,000 UNITS) PO (08:35)
[2022-06-08] MEDS: Nystatin Powder 15gm Bottle 1 APPLIC TOPICAL ×2 (08:36→21:04)
[2022-06-08] MEDS: Calcium Carbonate 500 MG Tablet PO ×3 (08:36→16:54)
[2022-06-08] MEDS: Potassium Chloride Oral Tablet 20 MEQ PO (08:36)
[2022-06-08] MEDS: Menthol/Lanolin/Calamine/Znox 113 GM Tube 1 APPLIC TOPICAL ×2 (08:36→21:04)
[2022-06-08] MEDS: Magnesium Chloride 64 MG Delay Rel.Tablet 128 MG PO ×2 (08:36→21:03)
[2022-06-08] MEDS: dilTIAZem CD 120 MG Capsule PO (08:36)
[2022-06-08] MEDS: oxyCODONE 5 MG Tablet PO ×2 (08:41→15:07)
[2022-06-08] MEDS: Ascorbic Acid 500 MG Tablet PO (11:56)
[2022-06-08] MEDS: Tamsulosin HCl 0.4 MG Capsule PO (16:54)
[2022-06-08 20:00] VITALS: BP 96/49; PULSE 89; RESP 17; TEMP 36.3; O2SAT 100
[2022-06-08 20:30] VITALS: PULSE 89; RESP 17
[2022-06-08] MEDS: Pravastatin 40 MG Tablet PO (21:02)
[2022-06-08 21:03] VITALS: BP 103/55; PULSE 85
[2022-06-09] MEDS: oxyCODONE 5 MG Tablet PO ×4 (01:46→22:53)
[2022-06-09] MEDS: Acetaminophen 500 MG Tablet 1000 MG PO ×3 (05:41→21:30)
[2022-06-09 06:00] VITALS: BMI 31.4
[2022-06-09 07:50] VITALS: BP 101/51; PULSE 86; RESP 14; TEMP 36.9; O2SAT 99
[2022-06-09] MEDS: Pantoprazole Sodium 40 MG Tablet PO ×2 (08:56→21:32)
[2022-06-09] MEDS: Isosorbide Mononitrate 30 MG Tablet PO (08:56)
[2022-06-09] MEDS: Calcium Carbonate 500 MG Tablet PO ×3 (08:56→17:21)
[2022-06-09] MEDS: Furosemide 40 MG Tablet PO ×2 (08:56→17:21)
[2022-06-09] MEDS: Magnesium Chloride 64 MG Delay Rel.Tablet 128 MG PO ×2 (08:56→21:32)
[2022-06-09 08:57] VITALS: BP 101/51; PULSE 86
[2022-06-09] MEDS: Potassium Chloride Oral Tablet 20 MEQ PO (08:57)
[2022-06-09] MEDS: Metoprolol Tartrate 50 MG Tablet 75 MG PO ×2 (08:57→21:33)
[2022-06-09] MEDS: dilTIAZem CD 120 MG Capsule PO (08:57)
[2022-06-09] MEDS: Cholecalciferol (VIT D3) 25 MCG TABLET (1,000 UNITS) PO (08:57)
[2022-06-09] MEDS: Senna/Docusate Sodium 1 Tablet 2 TABLET PO (08:58)
[2022-06-09] MEDS: Nystatin Powder 15gm Bottle 1 APPLIC TOPICAL ×2 (09:03→21:34)
[2022-06-09] MEDS: Menthol/Lanolin/Calamine/Znox 113 GM Tube 1 APPLIC TOPICAL ×2 (09:03→21:34)
--- NOTE | 2022-06-09 09:47 | PCM.PROGNOTE ---
Subjective Subjective Afebrile VSS Maintaining appropriate oxygen saturation on RA Oral intake is good Weight today is 145.5 pounds Discussed with nursing - no problems that need addressed Reviewed the PT/OT notes Medication list reviewed. Mariaelena denies lightheadedness, vertigo, CP, SOB at rest, SOB with exertion, cough, nausea, vomiting, abd pain, diarrhea, constipation, dysuria, calf pain and ankle swelling. Objective Data Objective Data Vital Signs: Vital Signs Temp Pulse Resp BP Pulse Ox O2 Del Method O2 Flow Rate 98.4 F 86 14 101/51 L 99 Room Air 1 06/09/22 07:50 06/09/22 08:57 06/09/22 07:50 06/09/22 08:57 06/09/22 07:50 06/09/22 07:50 05/27/22 09:00 FiO2 96 05/26/22 22:00 Oxygen Flow Rate (L/min) 1 Oxygen Delivery Method Room Air Weight: 145 lb 8.081 oz Body Mass Index (BMI) 31.4 Intake & Output: Intake and Output for Last 24 Hours 06/07/22 06/08/22 06/09/22 23:59 23:59 23:59 Intake Total 1020 / 1020 1215 / 1215 440 / 440 Output Total 900 / 900 300 / 300 Balance 120 / 120 915 / 915 440 / 440 Lab / Micro Data Result Diagrams: 06/09/22 10:12 06/09/22 10:12 Micro: Microbiology 05/26/22 05:30 Urine Catheter - Courtney Urine Culture - Final Citrobacter freundii 05/21/22 12:00 Urine, Clean Catch Urine Culture - Final Mixed Gram Pos & Gram Neg Org Physical Exam Const alert, oriented x3 and no apparent distress Resp normal respiratory effort and clear to auscultation bilaterally Cardio regular rate, regular rhythm and no gallops Cardio Narrative: Irregular irregular rhythm with controlled ventricular response. Jugular Venous Distention: Negative for JVD GI soft to palpation, non-tender and non-distended; Negative for hepatosplenomegaly GI Narrative: No guarding with palpation Extremity no calf tenderness Extremity Narrative: Edema is much improved. she still has some pitting edema of the posterior thighs and a trace of pretibial edema but she has lost at least 30 lbs of excess fluid. General Extremity: edema bilateral (pitting to the groin BL) Skin General Skin Exam: no breakdown Rashes: no rashes Neuro oriented x3, CN's II-XII intact bilaterally, moves all extremities and no sensory deficits noted Psych mental status grossly normal, thought process normal, cooperative, affect normal, speech normal, activity/motor behavior normal, denies hallucinations and denies homicidal ideation Appearance: grossly normal and appropriate Attitude: calm Assessment & Plan Assessment/Plan (1) Physical debility: (2) Closed fracture of right hip: QUALIFIERS: Encounter type: initial encounter Qualified Code(s): S72.001A - Fracture of unspecified part of neck of right femur, initial encounter for closed fracture (3) Hx of reduction of closed fracture: (4) Urine retention: (5) UTI (urinary tract infection): (6) Acute blood loss anemia: (7) Iron deficiency anemia: QUALIFIERS: Iron deficiency anemia type: chronic blood loss Qualified Code(s): D50.0 - Iron deficiency anemia secondary to blood loss (chronic) (8) Moderate to severe pulmonary hypertension: (9) Acute on chronic right heart failure: (10) Venous insufficiency of both lower extremities: PLAN: Plan 1. Continue therapy 2. BMP and H&H today 3. Hold additional Lasix until I see her BMP 4. Will have her check daily wts at home and if the wt goes up 5 lbs she will increase the Lasix to BID until she is back to her baseline. Charges/Coding Visit Charges Inpatient E&M: 36379 Subs Hosp L2
[2022-06-09 10:34] LABS: Hematocrit 33.6 % (37-47); Hemoglobin 10.6 g/dL (12.0-15.0)
[2022-06-09 11:03] LABS: Anion Gap 6 (5-15); BUN 11 mg/dL (7-18); BUN/Creat Ratio 12.2 RATIO (10-20); Calcium,Total 9.2 mg/dL (8.5-10.1); Chloride 97 mmol/L (98-107); EST Glomerular Filtration Rate 65 mL/min (>60); Est Glom Filt Rate - Afr Amer 78 mL/min (>60); Estimated Creatinine Clearance 55.41 ml/min; Glucose 116 mg/dL (74-106); Potassium 3.6 mmol/L (3.5-5.1); Sodium Level 134 mmol/L (136-145)
[2022-06-09] MEDS: Ascorbic Acid 500 MG Tablet PO (11:36)
--- NOTE | 2022-06-09 14:07 | CASEMGMT ---
Addendum entered by Meaghan Perez 06/10/22 10:08: SW left message with rep again to ensure all DME and HHC are coordinate. Original Note: Social Work Secure email sent to worker's comp rep to ensure all DME and HHC are coordinated. Will continue to follow. MARLINE Hoff
[2022-06-09] MEDS: Tamsulosin HCl 0.4 MG Capsule PO (17:21)
[2022-06-09 19:29] VITALS: BP 98/61; PULSE 89; RESP 14; TEMP 36.8; O2SAT 97
[2022-06-09] MEDS: Pravastatin 40 MG Tablet PO (21:32)
[2022-06-09 21:33] VITALS: BP 98/61; PULSE 89
--- NOTE | 2022-06-10 02:48 | NURSING ---
Reviewed and agree with Paxton SNEED's, documentation and assessment charting.
[2022-06-10 05:37] VITALS: BMI 31.0
[2022-06-10] MEDS: Acetaminophen 500 MG Tablet 1000 MG PO ×3 (06:07→21:30)
[2022-06-10 07:03] VITALS: BP 110/56; PULSE 90; RESP 18; TEMP 36.2; O2SAT 96
[2022-06-10 08:04] VITALS: BP 110/56; PULSE 90
[2022-06-10] MEDS: Metoprolol Tartrate 50 MG Tablet 75 MG PO ×2 (08:04→21:31)
[2022-06-10] MEDS: Cholecalciferol (VIT D3) 25 MCG TABLET (1,000 UNITS) PO (08:05)
[2022-06-10] MEDS: Ascorbic Acid 500 MG Tablet PO (08:05)
[2022-06-10] MEDS: Potassium Chloride Oral Tablet 20 MEQ PO (08:06)
[2022-06-10] MEDS: dilTIAZem CD 120 MG Capsule PO (08:06)
[2022-06-10] MEDS: Pantoprazole Sodium 40 MG Tablet PO ×2 (08:06→21:30)
[2022-06-10] MEDS: Isosorbide Mononitrate 30 MG Tablet PO (08:06)
[2022-06-10] MEDS: Senna/Docusate Sodium 1 Tablet 2 TABLET PO (08:06)
[2022-06-10] MEDS: Calcium Carbonate 500 MG Tablet PO ×2 (08:06→16:58)
[2022-06-10] MEDS: Furosemide 40 MG Tablet PO ×2 (08:06→17:02)
[2022-06-10] MEDS: Magnesium Chloride 64 MG Delay Rel.Tablet 128 MG PO ×2 (08:06→21:31)
[2022-06-10] MEDS: Menthol/Lanolin/Calamine/Znox 113 GM Tube 1 APPLIC TOPICAL ×2 (08:08→21:32)
[2022-06-10] MEDS: Nystatin Powder 15gm Bottle 1 APPLIC TOPICAL ×2 (08:08→21:31)
[2022-06-10] MEDS: oxyCODONE 5 MG Tablet PO ×3 (08:12→21:28)
--- NOTE | 2022-06-10 11:48 | DCINST_ITS ---
Discharge Instructions Diet Discharge Diet: - (Low salt diet. Restric fluids to no more than 1500 cc's (50 ounces) of fluid daily.) Activity Discharge Activity: May Not Drive, May Shower and Use Walker Weight Bearing Status: Full weight bearing Lifting Restrictions: no more than 5 lbs Keep extremity elevated above heart level: Legs Dressing / Incision Call your doctor if your incision/area has: Continuous Slow Oozing, Sudden Increased Bleeding, Increased Pain/ Swelling, Increased Redness, Foul Smelling Discharge and Swelling at the incision site Call your doctor if you observe: Fever of 101 or Higher, Inability to urinate, Dizziness, Fainting spells, Chest pain, Increased palpitations (irregular heartbeat), Calf discomfort and Uncontrolled pain Suture Line Care: Avoid Pulling/Pushing and Avoid Pinching/Bending Cleanse incision/area with: Soap & Water and - (no dressing is needed) Follow Up Care Please Follow Up With: Cassius Monaco Chi, MD When: 06/11/22 at 1 PM. You will also need to follow up with Dr. Canas as previously instructed. D Test Results: Test results from this visit will be discussed in further detail at your follow- up appointment, if applicable. Pending Tests Upon Discharge: none Discharge Plan Admission Admit Date/Time: 05/20/22 16:33 Primary Reason for Your Visit: Ability secondary to R hip fracture. Attending Provider: Ada Devlin Primary Care Provider: Cassius Monaco Chi Instructions Patient Instructions: Pulmonary 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, Mitral insufficiency Additional Instructions / Restrictions: 1. You have pulmonary hypertension and also have venous insufficiency. Both of these conditions cause your legs to swell. Diuretics alone will NOT take care of the swelling in your legs. You must wear compression stockings to help prevent the swelling. I am referring you to [facility] here at the hospital to see Dr. Vasquez who will order a type of compression stocking called a Circaid. This stocking is the easiest I know of to get on and they are comfortable. You will need to put the stockings on as soon as you get up in the morning and don't take them off until you go to bed at night. Remember to elevate your legs at anytime you are sitting in a chair. Following these recommendations will help to prevent the 30+ lb weight gain you had. 2. Weigh yourself in the morning on after using the bathroom and with nothing on.......this will be your dry weight. This is the weight we want you to maintain. You will take one 40 mg Lasix in the AM and weigh yourself EVERY morning. Then you will follow the instructions below. I gave you enough medication so that you can take it twice a day if needed. a. A sudden weight gain is an indication that your body is retaining water. Before you can see any swelling in the legs you will have gained at least 4 and 1/2 pounds. A sudden decrease in weight may mean you are dehydrated, [place] if you are also lightheaded or your BP is low. b. Weigh yourself at the same time each morning, wearing the same clothes. Weigh yourself after urinating and before eating. c. Use the same scale each day. Put the scale on a flat, hard surface-not on a rug or carpet. d. Do not stop weighing yourself. If you forget 1 day, weigh again the next morning. e. Keep your weight on a chart located near the scale. Write your weight on the chart as soon as you get off the scale. f. Take your weight chart with you when you go see your doctor. g. If you gain 3 or more pounds in 1 day, or you gain 5 or more pounds in 1 week this is a sign that you are retaining fluid. Cut down on salt and water ingestion and increase the Lasix to twice a day until your weight is back to your baseline. If the weight does not come down call Dr. Monaco or Dr. Pierce. h. If your weight decreases by more than 1-2 lbs for 2-3 days in a row you maybe getting dehydrated. If you are dizzy when you stand up or if your BP is lower than normal, or if you are passing out SIT DOWN and have someone bring you water to drink. Call your doctor for advice or stop the Lasix until your weight is back to your baseline. 3. You do not absorb iron from your GI tract so there is no point taking iron supplements by mouth. We gave you IV iron while you were on rehab and you should not need any iron for a while. Continue to follow up with Dr. Marrero for iron infusions periodically. 4. The reason you have pulmonary hypertension is you have a very leaky mitral valve. the mitral valve is one of the valves in your heart and when your heart squeezes some of the blood leaks back into the lungs and this is what increases the pressure in the lungs that leads to the swelling in the legs. 5. NO BENDING, LIFTING OR TWISTING. 6. It has been a delight having you on rehab Rhea. I have really enjoyed getting to know you and so has the rest of the staff. If you have any questions after you leave rehab please do not hesitate to call me. Office: [phone] Cell: Take care Rhea and live happy. Discharge Orders/Prescriptions Prescriptions: New metoprolol tartrate 50 mg Tablet 50 mg PO BID Qty: 60 0RF oxycodone 5 mg Tablet 5 mg PO Q4H PRN PRN (Reason: Pain Score 4-10) 7 Days Qty: 30 0RF furosemide 40 mg Tablet 40 mg PO BIDLX Qty: 60 0RF cholecalciferol (vitamin D3) 25 mcg (1,000 unit) Tablet 25 mcg PO DAILYCM Qty: 30 0RF meclizine 12.5 mg Tablet 12.5 mg PO TID PRN PRN (Reason: Vertigo) Qty: 30 0RF Mag 64 64 mg Tablet,Delayed Release (Dr/Ec) 128 mg PO BID Qty: 120 0RF Continued ascorbic acid (vitamin C) [Vitamin C] 500 mg Tablet 500 mg PO DAILY calcium carbonate 200 mg calcium (500 mg) tablet,chewable 500 mg PO TIDCM pravastatin 40 mg tablet 40 mg PO QHS Qty: 30 0RF tamsulosin 0.4 mg capsule 0.4 mg PO DAILY@1730 Qty: 30 0RF pantoprazole 40 mg tablet,delayed release (DR/EC) 40 mg PO BID Qty: 60 0RF diltiazem HCl 120 mg capsule,extended release 24hr 120 mg PO Q12 Qty: 60 0RF Rx Instructions: Hold for heart less than 60 or systolic blood pressure less than 90 mmHg. potassium chloride 20 mEq tablet extended release 20 meq PO DAILY Qty: 30 3RF Changed acetaminophen 500 mg tablet 1,000 mg PO Q8 PRN (Reason: pain or fever) Qty: 1 0RF Discontinued ergocalciferol (vitamin D2) 1,000 unit tablet 1,000 unit tablet 1 tab PO DAILY oxycodone 5 mg Tablet 2.5 mg PO Q4H PRN PRN (Reason: Pain Score 4-10) 5 Days Qty: 15 0RF Rx Instructions: 2.5 mg for moderate pain 4-6 and 5 mg for severe pain 7-10. metoprolol tartrate 100 mg tablet 100 mg PO BID sennosides-docusate sodium [Stool Softener-Stimulant Laxat] 8.6-50 mg tablet 2 tab PO BID ferrous sulfate [FeroSul] 325 mg (65 mg iron) tablet 325 mg PO DAILY Rx Instructions: for 3 months lisinopril 40 mg tablet 10 mg PO DAILY Rx Instructions: Hold for SBP less than 130 mmHg No Action furosemide 40 mg tablet 40 mg PO DAILY isosorbide mononitrate 30 mg tablet extended release 24 hr 30 mg PO DAILY Referrals / Follow Up: Rancho Canas DO [Med Staff - Active Staff] - 06/27/22 12:45 pm (Office is mailing you paper work to fill out and take to appointment Take Photo ID and Insurance Card to appointment ) Cassius Monaco Chi, MD [Primary Care Provider] - 06/11/22 1:00 pm (Please make same day appt - Meaghan) Disposition Disposition (needs filled in before D/C Order can be placed): Home Health Service
--- NOTE | 2022-06-10 12:05 | NURSING ---
pt refusing to where jimmy wraps. reeducated on the benefits. voices understanding.
--- NOTE | 2022-06-10 12:53 | DS.PCM_ITS ---
Providers Date of Admission: 05/20/22 Date of Discharge: 06/11/22 Primary Care Physician: Dr. Cassius Monaco MD Reason For Visit: RIGHT HIP FRACTURE Diagnosis Discharge Diagnosis (1) Physical debility: Status: Acute Code(s): R53.81 - Other malaise (2) Closed fracture of right hip: Status: Inactive Code(s): S72.001A - Fracture of unspecified part of neck of right femur, initial encounter for closed fracture Qualifiers: Encounter type: initial encounter Qualified Code(s): S72.001A - Fracture of unspecified part of neck of right femur, initial encounter for closed fracture (3) Hx of reduction of closed fracture: Status: Acute Code(s): Z87.81 - Personal history of (healed) traumatic fracture Plan: 05/14/22 - Dr. Canas, intramedullary nail. Ruby have been removed and the incision is intact with no dehiscence, no purulent DC and no erythema on the day of discharge. (4) Urine retention: Status: Resolved Code(s): R33.9 - Retention of urine, unspecified (5) UTI (urinary tract infection): Status: Resolved Code(s): N39.0 - Urinary tract infection, site not specified Plan: Due to Citrobacter Freundii. (6) Acute blood loss anemia: Status: Acute Code(s): D62 - Acute posthemorrhagic anemia Plan: She had 1 unit of PRBC's on 05/15/22 for a HGB of 7.4. Hemoccult stool was + on 05/20/22. She has a hx of iron deficiency and has failed oral iron replacement in the past. She regularly gets iron infusions from Dr. Marrero. Iron studies on 05/20/2022 showed a low serum iron at 46, a TIBC of 358 and a low iron saturation at 12.8. She was given 700 mg of IV iron sucrose while on rehab. Oral iron was discontinued because she is unable to absorb this.....likely related to the PPI BID and gastric acid inhibition. (7) Iron deficiency anemia: Status: Chronic Code(s): D50.9 - Iron deficiency anemia, unspecified Qualifiers: Iron deficiency anemia type: chronic blood loss Qualified Code(s): D50.0 - Iron deficiency anemia secondary to blood loss (chronic) (8) Moderate to severe pulmonary hypertension: Status: Chronic Code(s): I27.20 - Pulmonary hypertension, unspecified Plan: Due to severe MR. (9) Acute on chronic right heart failure: Status: Resolved Code(s): I50.813 - Acute on chronic right heart failure Plan: With gradual diuresis she is down about 30 lbs since arriving on rehab. (10) Venous insufficiency of both lower extremities: Status: Chronic Code(s): I87.2 - Venous insufficiency (chronic) (peripheral) Plan: Pt is being referred to Dr. Baylee Wood in the wound care center for venous insufficiency due to pulmonary HTN/varicosities with stasis dermatitis. She needs to have good compression and is unable to get standard compression stockings on or VENKATESH wraps. She lives alone and would benefit from Circaids for compression. These are best ordered from the wound care center. (11) Hypoxia: Status: Resolved Code(s): R09.02 - Hypoxemia Plan: Resolved with resolution of acute on chronic diastolic CHF. she was 99% on RA at the time of DC. (12) Occult blood in stools: Status: Acute Code(s): R19.5 - Other fecal abnormalities (13) Longstanding persistent atrial fibrillation: Status: Chronic Code(s): I48.11 - Longstanding persistent atrial fibrillation Plan: Rate controlled with Metoprolol. Dose had to be decreased during her stay in rehab because it kept dropping with resolution of the CHF. she is now on 50 mg BID and the rate is controlled. HR on the day of DC is 81. NOT on anticoagulation due to a spontaneous brain bleed on anticoagulation. (14) Aortic valve stenosis, acquired: Status: Chronic Code(s): I35.0 - Nonrheumatic aortic (valve) stenosis (15) Non-rheumatic mitral regurgitation: Status: Chronic Code(s): I34.0 - Nonrheumatic mitral (valve) insufficiency Plan: Severe, causing pulmonary hypertension. (16) Non-rheumatic tricuspid valve insufficiency: Status: Chronic Code(s): I36.1 - Nonrheumatic tricuspid (valve) insufficiency (17) CAD (coronary artery disease): Status: Chronic Code(s): I25.10 - Atherosclerotic heart disease of [place] coronary artery without angina pectoris Plan: Will follow up with Dr. Pierce. (18) Essential hypertension: Status: Chronic Code(s): I10 - Essential (primary) hypertension Plan: BP is well controlled and is actually on the low side.....we have had to decrease the Metoprolol dose but, the HR remains controlled. She is asymptomatic. (19) Mixed hyperlipidemia: Status: Chronic Code(s): E78.2 - Mixed hyperlipidemia Plan 1. DC home with her friend Nikki rahmanSveta 2. HHC approved by [employer] for PT/OT/SN/MUSKRAT TRAPPER 3. DME to be supplied by [employer] 4. Follow up with Dr. Monaco at 1 PM on the day of DC 5. No pharmacologic DVT prophylaxis due to hx of spontaneous brain bleed.....pt is ambulating now and it has been 1 month since her surgery. 6. F/u with Dr. Wood in the [facility] on 06/20/22 at 10 AM - to arrange for Circaids. 7. F/U with Dr. Pierce as previously arranged 8. F/U with Dr. Canas 9. Follow up with Dr. Marrero as previously scheduled. Medications at Discharge Home Medications ascorbic acid (vitamin C) 500 mg tablet (Vitamin C) 500 mg PO DAILY supplement 05/20/22 calcium carbonate 200 mg calcium (500 mg) chewable tablet 500 mg PO TIDCM Supplement 05/20/22 furosemide 40 mg tablet 40 mg PO DAILY Fluid retention 05/20/22 isosorbide mononitrate 30 mg tablet,extended release 24 hr 30 mg PO DAILY BP acetaminophen 500 mg tablet 1,000 mg PO Q8 PRN pain or fever #1 TAB 06/10/22 cholecalciferol (vitamin D3) 25 mcg (1,000 unit) tablet 25 mcg PO DAILYCM #30 tabs 06/10/22 diltiazem HCl 120 mg capsule,extended release 24 hr 120 mg PO Q12 BP #60 caps 06/10/22 furosemide 40 mg tablet 40 mg PO BIDLX #60 tabs 06/10/22 magnesium chloride 64 mg (magnesium chloride) tablet,delayed release (Mag 64) 128 mg PO BID #120 tabs 06/10/22 meclizine 12.5 mg tablet 12.5 mg PO TID PRN PRN Vertigo #30 tabs 06/10/22 metoprolol tartrate 50 mg tablet 50 mg PO BID #60 tabs 06/10/22 oxycodone 5 mg tablet 5 mg PO Q4H PRN PRN Pain Score 4-10 7 days #30 tabs 06/10/22 pantoprazole 40 mg tablet,delayed release 40 mg PO BID GERD #60 tabs 06/10/22 potassium chloride 20 mEq tablet,extended release 20 meq PO DAILY supplement #30 tabs 06/10/22 pravastatin 40 mg tablet 40 mg PO QHS Cholestrol #30 tabs 06/10/22 tamsulosin 0.4 mg capsule 0.4 mg PO DAILY@1730 Urinary retention #30 caps 06/10/22 Hospital Course Operations - (R hip meduallry nail on 05/14/[address] Canas. ) Summary of Care Provided Minutes Spent on Discharge: 45 Hospital Course: ? 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 Marrero), anxiety, coronary artery disease, chronic anemia, anxiety/depression, hypertension, hyperlipidemia, chronic anticoagulation (stopped in May 2021 after a spontaneous intracranial hemorrhage while on warfarin), secondary pulmonary hypertension due to severe MR, GERD, recurrent iron deficiency (failed oral supplementation and gets IV iron from Dr. Marrero) and a laparoscopic cholecystectomy on 05/01/[address] Noyola.? She presented to the ED at [facility] on 05/12/2022 complaining of R hip pain after a fall and was unable to ambulate.?X-ray showed an acute intertrochanteric fracture of the right femur.? She was seen in consultation by Dr. Canas and taken to surgery on 05/14/2022 for placement of an intramedullary nail in the right femur.? That night following orona rgery she became tachycardic and hypotensive and received a 500 cc fluid bolus but remained lightheaded.? Hemoglobin was 7.4, down from 9.7 at admission.? She was transfused with 1 unit of PRBC's on 05/15/22 and HGB the following day was 8.5. Hemoccult stool on 05/20/22 was +. On 05/16/2022 she had urine retention and had to be straight cath'd.? UA was negative for urinary tract infection.? Urine culture was negative.? That night a noncontrast brain CT was done because of confusion and showed no acute abnormal intracranial finding. Confusion was thought to be due to Oxycodone and the dose was decreased from 5 mg to 2.5 mg.?She has been tolerating 5 mg in rehab with no confusion. ? .?When she arrived on rehab Margarette was requiring oxygen to keep the O2 sat greater than or equal to 90%. She had gained about 30 lbs since the cholecystectomy the end of April. She had pitting edema of both legs to the groin BL. Lungs were CTA. BNP was increased to 445 but, this is actually not bad for her and is likely her baseline. She was diagnosed with acute on chronic R heart failure due to fluid overload in a pt with severe pulmonary HTN. She was started on IV Lasix 40 mg BID initially and later transitioned to 40 mg of oral Lasix. She has lost approximately 30 lbs since arriving on rehab. She is no longer requiring oxygen supplementation. She was discharged on 40 mg Lasix daily but, she will weigh herself daily and if her weight goes up she will follow recommendations given to her at [facility] for adjusting the Lasix dosing until the weight is back to baseline. She is on a low salt diet and will elevate her legs when seated to help control edema. She knows that she needs to wear compression stockings to control the edema in addition to taking Lasix. She is unable to get the standard SIMIN hose on and her friend Ilene will be wrapping her legs with Venkatesh wraps until she is able to follow-up in the wound care center with Dr. Wood to arrange for Circaids which are compression stockings that are easy to get on and they have adjustable compression. Margarette initially retained urine in rehab and a Courtney had to inserted. After 4-5 days a voiding trial was done but, failed and the Courtney had to be reinserted. She developed a urinary tract infection secondary to Citrobacter Freundii and this was treated with appropriate antibiotics. Another voiding trial was done and was successful and Margarette and the last 2 PVR's on 06/03/22 were 30 and 18. She is voiding regularly at the time of discharge. Margarette did quite well in rehab. At the time of discharge she is independent with eating and grooming and contact-guard assist for bathing. She is independent with upper body dressing and standby assist with lower body dressing. She is standby assist for toileting and toilet transfer and contact- guard assist for tub/shower transfer. She is able to ascend/descend to 8 inch steps and three 4 inch steps with a step to pattern and supervision with 2 handrails so that she can gain access to [facility]'s home and to her own home when the time comes. She has ambulated 330 feet at mod I with a front wheeled walker. She is able to get herself to the EOB independently and she is able to go from sitting to standing without assist. She will need addtional therapy following DC home and [employer] will be arranging this. [employer] will also being arranging for any DME. Physical Exam Const alert, oriented x3 and no apparent distress General Appearance: cooperative, comfortable and well kempt HEENT normocephalic, head/scalp atraumatic and hearing grossly normal bilaterally Eyes PERRL, EOMs intact bilaterally, conjunctivae normal and no scleral icterus Eyes Narrative: No discharge from the eyes and no mattering of the eyelashes. General Eye: normal appearance of both eyes Neck supple Chest Chest: symmetrical chest wall rise Resp normal respiratory effort, normal air movement and clear to auscultation bilaterally Resp Narrative: No conversational dyspnea Cardio regular rate, no rub and no gallops Cardio Narrative: She is sometimes in a regular rhythm and at others she is in an irreg, irreg rhythm. When she is in AF the rate is controlled. She has a systolic murmur at the lower left sternal border and the apex and also has a systolic murmur in the left axillary listening post. Heart sounds are somewhat distant. GI normal to inspection, nondistended, normoactive bowel sounds, soft to palpation, non-tender and no masses; Negative for hepatosplenomegaly GI Narrative: No guarding with palpation no CVA tenderness Extremity no calf tenderness Extremity Narrative: Edema is much improved. She still has some mild pitting edema of the posterior thighs and a trace of pretibial edema but she has lost at least 30 lbs of excess fluid since admission to rehab. the skin over the distal LE's is wrinkled now. She has mild hyperpigmentation over the distal LE's due to chronic venous stasis. General Extremity: Negative for clubbing Skin General Skin Exam: no breakdown Rashes: no rashes Wound Narrative: Incisions are intact with no dehiscence. There is no sierra-incisional erythema or increased warmth to touch. Ecchymosis is resolving. there is no drainage from the incisions now that the CHF has improved. Neuro oriented x3, CN's II-XII intact bilaterally, moves all extremities and no sensory deficits noted Psych thought process normal, cooperative, affect normal and activity/motor behavior normal Appearance: appropriate Attitude: calm Weight / BMI Weight Weight: 143 lb 8.335 oz Body Mass Index (BMI) 31.0 ABG / Lab / Microbiology Data Result Diagrams: 06/09/22 10:12 06/09/22 10:12 Microbiology: Microbiology 05/26/22 05:30 Urine Catheter - Courtney Urine Culture - Final Citrobacter freundii 05/21/22 12:00 Urine, Clean Catch Urine Culture - Final Mixed Gram Pos & Gram Neg Org D/C Instructions Discharge Diet: - (Low salt diet. Restric fluids to no more than 1500 cc's (50 ounces) of fluid daily.) Weight Bearing Status: Full weight bearing Keep extremity elevated above heart level: Legs Call your doctor if your incision/area has: Continuous Slow Oozing, Sudden Increased Bleeding, Increased Pain/ Swelling, Increased Redness, Foul Smelling Discharge and Swelling at the incision site Call your doctor if you observe: Fever of 101 or Higher, Inability to urinate, Dizziness, Fainting spells, Chest pain, Increased palpitations (irregular heartbeat), Calf discomfort and Uncontrolled pain Suture Line Care: Avoid Pulling/Pushing and Avoid Pinching/Bending Cleanse incision/area with: Soap & Water and - (no dressing is needed) Pending Tests Upon Discharge: none Please Follow Up With: Cassius Monaco Chi, MD When: 06/11/22 at 1 PM. You will also need to follow up with Dr. Canas as previously instructed. D Meaningful Use Info Meaningful Use Diagnoses (Choose all that apply): None applicable Discharge Plan Admission Admit Date/Time: 05/20/22 16:33 Primary Reason for Your Visit: Ability secondary to R hip fracture. Attending Provider: Ada Devlin Primary Care Provider: Cassius Monaco Chi Instructions Patient Instructions: Pulmonary 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, Mitral insufficiency Additional Instructions / Restrictions: 1. You have pulmonary hypertension and also have venous insufficiency. Both of these conditions cause your legs to swell. Diuretics alone will NOT take care of the swelling in your legs. You must wear compression stockings to help prevent the swelling. I am referring you to the Wound Care Center here at the [facility] to see Dr. Wood who will order a type of compression stocking called a Circaid. This stocking is the easiest I know of to get on and they are comfortable. You will need to put the stockings on as soon as you get up in the morning and don't take them off until you go to bed at night. Remember to elevate your legs at anytime you are sitting in a chair. Following these recommendations will help to prevent the 30+ lb weight gain you had. 2. Weigh yourself in the morning on after using the bathroom and with nothing on.......this will be your dry weight. This is the weight we want you to maintain. You will take one 40 mg Lasix in the AM and weigh yourself EVERY morning. Then you will follow the instructions below. I gave you enough medication so that you can take it twice a day if needed. a. A sudden weight gain is an indication that your body is retaining water. Before you can see any swelling in the legs you will have gained at least 4 and 1/2 pounds. A sudden decrease in weight may mean you are dehydrated, [place] if you are also lightheaded or your BP is low. b. Weigh yourself at the same time each morning, wearing the same clothes. Weigh yourself after urinating and before eating. c. Use the same scale each day. Put the scale on a flat, hard surface-not on a rug or carpet. d. Do not stop weighing yourself. If you forget 1 day, weigh again the next morning. e. Keep your weight on a chart located near the scale. Write your weight on the chart as soon as you get off the scale. f. Take your weight chart with you when you go see your doctor. g. If you gain 3 or more pounds in 1 day, or you gain 5 or more pounds in 1 week this is a sign that you are retaining fluid. Cut down on salt and water ingestion and increase the Lasix to twice a day until your weight is back to your baseline. If the weight does not come down call Dr. Monaco or Dr. Pierce. h. If your weight decreases by more than 1-2 lbs for 2-3 days in a row you maybe getting dehydrated. If you are dizzy when you stand up or if your BP is lower than normal, or if you are passing out SIT DOWN and have someone bring you water to drink. Call your doctor for advice or stop the Lasix until your weight is back to your baseline. 3. You do not absorb iron from your GI tract so there is no point taking iron supplements by mouth. We gave you IV iron while you were on rehab and you should not need any iron for a while. Continue to follow up with Dr. Marrero for iron infusions periodically. 4. The reason you have pulmonary hypertension is you have a very leaky mitral valve. the mitral valve is one of the valves in your heart and when your heart squeezes some of the blood leaks back into the lungs and this is what increases the pressure in the lungs that leads to the swelling in the legs. 5. NO BENDING, LIFTING OR TWISTING. 6. It has been a delight having you on rehab Margarette. I have really enjoyed getting to know you and so has the rest of the staff. If you have any questions after you leave rehab please do not hesitate to call me. Office: [phone] Cell: Take care Margarette and live happy. Discharge Orders/Prescriptions Prescriptions: New metoprolol tartrate 50 mg Tablet 50 mg PO BID Qty: 60 0RF oxycodone 5 mg Tablet 5 mg PO Q4H PRN PRN (Reason: Pain Score 4-10) 7 Days Qty: 30 0RF furosemide 40 mg Tablet 40 mg PO BIDLX Qty: 60 0RF cholecalciferol (vitamin D3) 25 mcg (1,000 unit) Tablet 25 mcg PO DAILYCM Qty: 30 0RF meclizine 12.5 mg Tablet 12.5 mg PO TID PRN PRN (Reason: Vertigo) Qty: 30 0RF Mag 64 64 mg Tablet,Delayed Release (Dr/Ec) 128 mg PO BID Qty: 120 0RF Continued ascorbic acid (vitamin C) [Vitamin C] 500 mg Tablet 500 mg PO DAILY calcium carbonate 200 mg calcium (500 mg) tablet,chewable 500 mg PO TIDCM pravastatin 40 mg tablet 40 mg PO QHS Qty: 30 0RF tamsulosin 0.4 mg capsule 0.4 mg PO DAILY@1730 Qty: 30 0RF pantoprazole 40 mg tablet,delayed release (DR/EC) 40 mg PO BID Qty: 60 0RF diltiazem HCl 120 mg capsule,extended release 24hr 120 mg PO Q12 Qty: 60 0RF Rx Instructions: Hold for heart less than 60 or systolic blood pressure less than 90 mmHg. potassium chloride 20 mEq tablet extended release 20 meq PO DAILY Qty: 30 3RF Changed acetaminophen 500 mg tablet 1,000 mg PO Q8 PRN (Reason: pain or fever) Qty: 1 0RF Discontinued ergocalciferol (vitamin D2) 1,000 unit tablet 1,000 unit tablet 1 tab PO DAILY oxycodone 5 mg Tablet 2.5 mg PO Q4H PRN PRN (Reason: Pain Score 4-10) 5 Days Qty: 15 0RF Rx Instructions: 2.5 mg for moderate pain 4-6 and 5 mg for severe pain 7-10. metoprolol tartrate 100 mg tablet 100 mg PO BID sennosides-docusate sodium [Stool Softener-Stimulant Laxat] 8.6-50 mg tablet 2 tab PO BID ferrous sulfate [FeroSul] 325 mg (65 mg iron) tablet 325 mg PO DAILY Rx Instructions: for 3 months lisinopril 40 mg tablet 10 mg PO DAILY Rx Instructions: Hold for SBP less than 130 mmHg No Action furosemide 40 mg tablet 40 mg PO DAILY isosorbide mononitrate 30 mg tablet extended release 24 hr 30 mg PO DAILY Referrals / Follow Up: wound center [Other] - 06/20/22 10:00 am (Dr wood) Rancho Canas DO [Med Staff - Active Staff] - 06/27/22 12:45 pm (Office is mailing you paper work to fill out and take to appointment Take Photo ID and Insurance Card to appointment ) Cassius Monaco Chi, MD [Primary Care Provider] - 06/11/22 1:00 pm (Please make same day appt - Meaghan) Disposition Disposition (needs filled in before D/C Order can be placed): Home Health Service Charges/Coding Visit Charges Inpatient E&M: 34718 Disch Hosp >30min
[2022-06-10] MEDS: Tamsulosin HCl 0.4 MG Capsule PO (16:58)
[2022-06-10 19:24] VITALS: BP 116/58; PULSE 75; RESP 14; TEMP 36.6; O2SAT 98
[2022-06-10 19:28] VITALS: RESP 14; O2SAT 97
[2022-06-10] MEDS: Sodium Chloride 0.65% 1 SPRAY SPRAY.BTL NASAL (21:28)
[2022-06-10] MEDS: Pravastatin 40 MG Tablet PO (21:30)
[2022-06-10 21:31] VITALS: PULSE 70
[2022-06-11 06:00] VITALS: BMI 31.0
[2022-06-11] MEDS: Acetaminophen 500 MG Tablet 1000 MG PO (06:50)
[2022-06-11 07:25] VITALS: BP 101/52; PULSE 81; RESP 16; TEMP 37.2; O2SAT 99
[2022-06-11] MEDS: Magnesium Chloride 64 MG Delay Rel.Tablet 128 MG PO (08:19)
[2022-06-11] MEDS: dilTIAZem CD 120 MG Capsule PO (08:19)
[2022-06-11] MEDS: Potassium Chloride Oral Tablet 20 MEQ PO (08:19)
[2022-06-11] MEDS: Pantoprazole Sodium 40 MG Tablet PO (08:19)
[2022-06-11] MEDS: Isosorbide Mononitrate 30 MG Tablet PO (08:19)
[2022-06-11] MEDS: Calcium Carbonate 500 MG Tablet PO ×2 (08:19→11:41)
[2022-06-11] MEDS: Cholecalciferol (VIT D3) 25 MCG TABLET (1,000 UNITS) PO (08:19)
[2022-06-11 08:20] VITALS: BP 101/52; PULSE 81
[2022-06-11] MEDS: Ascorbic Acid 500 MG Tablet PO (08:20)
[2022-06-11] MEDS: Furosemide 40 MG Tablet PO (08:20)
[2022-06-11] MEDS: Metoprolol Tartrate 50 MG Tablet 75 MG PO (08:20)
--- NOTE | 2022-06-11 09:38 | CASEMGMT ---
Addendum entered by Dominga Trevizo 06/11/22 12:55: Phone call placed to Tyesha at [facility] and requesting update on DME and HHS. DME will be delivered later today but a time has not been given. HHS has not yet been arranged. SW requesting this be done as soon as possible as pt is leaving facility at this time. SW met with pt and friend and updated that DME will be delivered to home later today. SW will call pt when HHS has been arranged. Pt expressing understanding. SAMUEL Tay Original Note: Social Work SW placed call to Tyesha, [facility] representative. Tyesha states that [employer] will be providing the need DME and delivering to pt's friend's home today. Tyesha to call this SW back with time of delivery when it is obtained. Per Tyesha, Home health PT/OT/SN/TRUCK MANAGER have been approved by [employer]. Home health has not been set up yet, but Tyesha is working on it and will call this SW back shortly with details of home health. ELIUD attempted to meet with pt but sleeping soundly. Nursing updated on above information. Pt plans to discharge today at 1245 for 1300 physician appointment and then home. Tyesha at [employer] updated on discharge time. SAMUEL Mosqueda
[2022-06-11] MEDS: oxyCODONE 5 MG Tablet PO (10:35)
--- NOTE | 2022-06-11 12:55 | NURSING ---
discharged home with friend. discharge medications, instructions and appointments reviewed with pt. denies questions or concerns
[2022-06-11 12:57] VITALS: BP 101/52; PULSE 81; RESP 16; TEMP 37.2; O2SAT 99
[2022-06-11 14:28] LABS: AST(SGOT) 25 U/L (15-37); Alanine Aminotransfer ALT/SGPT 12 U/L (13-56); Albumin, Serum 3.2 g/dL (3.2-5.0); Alkaline Phosphatase 116 U/L (45-117); Globulin 3.3 g/dL (2.2-4.2); Protein, Total 6.5 g/dL (6.4-8.2)
--- NOTE | 2022-06-11 15:45 | CASEMGMT ---
Phone call placed to Tyesha at [employer]. Tyesha still unable to confirm what time DME will be delivered today and has not received answer on setting up home health. Tyesha is aware that pt has been discharged home. SAMUEL Tay
--- NOTE | 2022-06-12 09:12 | CASEMGMT ---
Addendum entered by Dominga Trevizo 06/12/22 11:38: Social Work SW spoke with Tyesha at [facility], Christine at [facility] and Dr. Devlin. Medications issues have been resolved and pt can pick meds up at [facility] today. Tyesha updated and will notify pt. Return call from Zamzam at [facility] and they are able to provide home OT/PT services with start date on Friday 06/16. If an opening come available prior to that, pt will be seen. Tyesha updated and will notify pt. Tyesha to finalize DME to arrive at pt's home today. Discharge complete. SAMUEL Tay Original Note: Social Work SW received phone call from Tyesha at [facility]. DME was not delivered yesterday as promised, Tyesha is working on getting things delivered today. Per Tyesha, pt borrowed a walker from a friend. Secondly, pt was not able to get her medications from [facility]. Finally, Tyesha states determination has not yet been made on home health services so Tyesha recommends that SW set it up through [facility]. Phone call placed to Christine at [facility]. Christine states that prescriptions could not be run through [facility] as [facility] did not authorization for payment. Christine did call [facility] but they were unable to give her correct numbers. Also Christine states [facility] will not cover meds not related to accident and these meds could be run through part D plan. Pt's friend who was picking up scripts refused this option. Phone call placed to Tyesha at [facility] and information provided and ELIUD requested Tyesha contact Christine at [facility] directly to provide approval numbers. Tyesha to call pt at home and discuss medications and workers comp vs part D coverage. Referral made to Zamzam at [facility] for PT/OT. Completed C9's emailed. SW will await determination of acceptance. SAMUEL Tay
== END 2022-06-11 12:55 | disposition home health service (06) | DRG 560 ==
PROVIDERS: Admitting Provider Internal Medicine; PCP Family Medicine Geriatric Medicine; Visit Provider Internal Medicine
DX: S72.141D Displaced intertrochanteric fracture of right femur, subsequent encounter for closed fracture with routine healing (principal); I50.32 Chronic diastolic (congestive) heart failure; I48.11 Longstanding persistent atrial fibrillation; D62 Acute posthemorrhagic anemia; I27.29 Other secondary pulmonary hypertension; I11.0 Hypertensive heart disease with heart failure; E78.2 Mixed hyperlipidemia; I87.2 Venous insufficiency (chronic) (peripheral); M19.90 Unspecified osteoarthritis, unspecified site; K21.9 Gastro-esophageal reflux disease without esophagitis; I25.10 Atherosclerotic heart disease of native coronary artery without angina pectoris; W19.XXXD Unspecified fall, subsequent encounter; Z79.01 Long term (current) use of anticoagulants; F32.A Depression, unspecified; R33.9 Retention of urine, unspecified; Z79.899 Other long term (current) drug therapy
CPT/HCPCS: 36415; 80048; 80053; 81001; 83735; 83880; 84100; 85014; 85018; 85025; 85027; 86850; 86900; 86901; 86920; 86922; 87077; 87086; 87088; 87186; 93970; 94668; 97110; 97112; 97116; 97162; 97166; 97530; 97535; 97802; 97803; J7050; P9016; A4216; J1940; J2916

== ENCOUNTER 2022-06-25 07:41 | Outpatient (RCR) | payer OTHER, SELFPAY ==
[2022-06-25 08:27] VITALS: BP 117/76; PULSE 101; RESP 18; TEMP 36.2; BMI 29.3
--- NOTE | 2022-06-25 11:16 | HP.PCM_ITS ---
History of Present Illness Date of Service: 06/25/22 Chief Complaint: Left hip replacement after a fall at work and leg swelling. 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 Marrero), anxiety, coronary artery disease, chronic anemia, anxiety/depression, hypertension, hyperlipidemia, chronic anticoagulation (stopped in May 2021 after a spontaneous intracranial hemorrhage while on [facility]), secondary pulmonary hypertension due to severe MR, GERD, recurrent iron deficiency (failed oral supplementation and gets IV iron from Dr. Marrero) and a laparoscopic cholecystectomy on 05/01/[address] Noyola. She presented to the ED at [facility] on 05/12/2022 complaining of R hip pain after a fall at work and was unable to ambulate. X-ray showed an acute intertrochanteric fracture of the right femur. She was seen in consultation by Dr. Canas and taken to surgery on 05/14/2022 for placement of an intramedullary nail in the right femur. That night following surgery she became tachycardic and hypotensive and received a 500 cc fluid bolus but remained lightheaded. Hemoglobin was 7.4, down from 9.7 at admission. She was transfused with 1 unit of PRBC's on 05/15/22 and HGB the following day was 8.5. Hemoccult stool on 05/20/22 was +. On 05/16/2022 she had urine retention and had to be straight cath'd. UA was negative for urinary tract infection. Urine culture was negative. That night a noncontrast brain CT was done because of confusion and showed no acute abnormal intracranial finding. Confusion was thought to be due to Oxycodone and the dose was decreased from 5 mg to 2.5 mg. She has been tolerating 5 mg in rehab with no confusion. . When she arrived on rehab Margarette was requiring oxygen to keep the O2 sat greater than or equal to 90%. She had gained about 30 lbs since the cholecystectomy the end of April. She had pitting edema of both legs to the groin BL. Lungs were CTA. BNP was increased to 445 but, this is actually not bad for her and is likely her baseline. She was diagnosed with acute on chronic R heart failure due to fluid overload in a pt with severe pulmonary HTN. She was started on IV Lasix 40 mg BID initially and later transitioned to 40 mg of oral Lasix. She has lost approximately 30 lbs since arriving on rehab. She is no longer requiring oxygen supplementation. She was discharged on 40 mg Lasix daily but, she will weigh herself daily and if her weight goes up she will follow recommendations given to her at [facility] for adjusting the Lasix dosing until the weight is back to baseline. She is on a low salt diet and will elevate her legs when seated to help control edema. She knows that she needs to wear compression stockings to control the edema in addition to taking Lasix. She is unable to get the standard SIMIN hose on and her friend Ilene will be wrapping her legs with Venkatesh wraps until she is able to follow-up in the wound care center to arrange for Circaids which are compression stockings that are easy to get on and they have adjustable compression. She was discharged home from the Rehab floor on 06/10/22. She is walking with a walker. She presents today for further evaluation for compression stockings such as Circaids to help control her lower extremity edema. Today she denies fever, chills, nausea and vomiting. Progress of Wound: Right hip incision is healed. No open wound. Bilateral lower extremity edema is +1 today. [facility] Medical History Abdominal pain Adenocarcinoma (~10/2020) Adenocarcinoma of cecum Anemia Anxiety Aortic valve stenosis, acquired Arthritis Atrial fibrillation Back pain bilateral feet surgery Bradycardia Brain mass CAD (coronary artery disease) Cancer Cardiology follow-up encounter Cerumen impaction Cholecystitis, chronic Closed fracture of right hip Colon adenocarcinoma Complicated UTI (urinary tract infection) Costochondritis Depression Difficult intravenous access TERRAZAS (dyspnea on exertion) Easy bruising Essential hypertension Fall GERD (gastroesophageal reflux disease) High cholesterol History of atrial fibrillation History of echocardiogram History of edema History of stress test History of ulceration 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 Iron deficiency anemia longterm current use of anticoagulant Longstanding persistent atrial fibrillation Low iron Mixed hyperlipidemia Moderate to severe pulmonary hypertension Non-rheumatic mitral regurgitation Non-rheumatic tricuspid valve insufficiency Non-smoker Non-smoker Normal echocardiogram (~06/08/20) Normal stress echocardiogram (~06/03/17) Osteoarthritis Paroxysmal atrial fibrillation Rt flank pain Severe mitral regurgitation Shortness of breath on exertion Syncope and collapse Venous insufficiency of both lower extremities Vertigo Wears dentures Home Medications ascorbic acid (vitamin C) 500 mg tablet (Vitamin C) 500 mg PO DAILY supplement 05/20/22 [History Last Taken Unknown] calcium carbonate 200 mg calcium (500 mg) chewable tablet 500 mg PO TIDCM Supplement 05/20/22 [History Last Taken Unknown] furosemide 40 mg tablet 40 mg PO DAILY Fluid retention 05/20/22 [History Last Taken Unknown] isosorbide mononitrate 30 mg tablet,extended release 24 hr 30 mg PO DAILY BP 05/20/22 [History Last Taken Unknown] acetaminophen 500 mg tablet 1,000 mg PO Q8 PRN pain or fever #1 TAB 06/10/22 [Rx Last Taken Unknown] cholecalciferol (vitamin D3) 25 mcg (1,000 unit) tablet 25 mcg PO DAILYCM #30 tabs 06/10/22 [Rx Last Taken Unknown] diltiazem HCl 120 mg capsule,extended release 24 hr 120 mg PO Q12 BP #60 caps 06/10/22 [Rx Last Taken Unknown] furosemide 40 mg tablet 40 mg PO BIDLX #60 tabs 06/10/22 [Rx Last Taken Unknown] magnesium chloride 64 mg (magnesium chloride) tablet,delayed release (Mag 64) 128 mg PO BID #120 tabs 06/10/22 [Rx Last Taken Unknown] meclizine 12.5 mg tablet 12.5 mg PO TID PRN PRN Vertigo #30 tabs 06/10/22 [Rx Last Taken Unknown] metoprolol tartrate 50 mg tablet 50 mg PO BID #60 tabs 06/10/22 [Rx Last Taken Unknown] oxycodone 5 mg tablet 5 mg PO Q4H PRN PRN Pain Score 4-10 7 days #30 tabs 06/10/22 [Rx Last Taken Unknown] pantoprazole 40 mg tablet,delayed release 40 mg PO BID GERD #60 tabs 06/10/22 [Rx Last Taken Unknown] potassium chloride 20 mEq tablet,extended release 20 meq PO DAILY supplement #30 tabs 06/10/22 [Rx Last Taken Unknown] pravastatin 40 mg tablet 40 mg PO QHS Cholestrol #30 tabs 06/10/22 [Rx Last Taken Unknown] tamsulosin 0.4 mg capsule 0.4 mg PO DAILY@1730 Urinary retention #30 caps 06/10/22 [Rx Last Taken Unknown] Allergy/AdvReac Type Severity Reaction Status Date / Time piroxicam Allergy CAUSES Verified 06/25/22 08:44 BLEEDING ULCER adhesive tape AdvReac Rash/BLISTE Verified 06/25/22 08:44 RS Family History Mother 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 Father , from [place] at age 69 CAD (coronary artery disease) Myocardial infarction, Onset Age: 69 Brother 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 Heart disease Myocardial infarction Pacemaker Surgical History H/O: hysterectomy History of carpal tunnel release History of colectomy (~10/2020) History of knee replacement, total History of laparoscopic cholecystectomy History of left heart catheterization (06/12/17) History of right and left heart catheterization (11/16/19) History of tonsillectomy History of transesophageal echocardiography (HANNY) (11/16/19) Hx of cataract extraction Hx of colonoscopy Hx of reduction of closed fracture Social History household members: none and other details: [place] and she is . number of children: 2 Smoking Status: Never smoker alcohol intake: never substance use type: does not use caffeine: Yes Type: carbonated beverages Number of servings: 1 what type of physical activity do you participate in: none ROS Constitutional Constitutional: Denies chills or fever(s) Eyes Eyes: Reports none ENT HEENT: Reports none Cardiovascular Cardiovascular: Reports as per HPI, irregular heart rhythm and leg edema; Denies chest pain Respiratory/Chest Respiratory/Chest: Denies dry cough or tachypnea Gastrointestinal Gastrointestinal: Denies diarrhea, nausea or vomiting Genitourinary Genitourinary: Reports as per HPI Musculoskeletal Musculoskeletal: Reports as per HPI, abnormal gait and difficulty walking Integumentary Integumentary: Reports skin swelling; Denies skin ulcer Psychiatric Psychiatric: Denies anxiety Endocrine Endocrinology: Reports none Allergic/Immunologic Allergic/Immunologic: Reports none Vital Signs Vital Signs Vital Signs: 06/25/22 08:27 Temperature 97.1 F L Temperature Source Temporal Pulse Rate 101 H Respiratory Rate 18 Blood Pressure 117/76 Blood Pressure Mean 89 Blood Pressure Source Monitor Weight Weight: 135 lb 9.985 oz Body Mass Index (BMI) 29.3 Physical Exam Const alert, oriented x3, no apparent distress and average body habitus General Appearance: cooperative Orientation / Consciousness: awake HEENT normocephalic and head/scalp atraumatic Eyes General Eye: normal appearance of both eyes Neck full ROM Resp normal respiratory effort, normal air movement and clear to auscultation bilaterally Effort and Inspection: able to speak in complete sentences Cardio regular rate Rhythm: abnormal rhythm irregularly irregular Peripheral Pulses: pulses 2+ throughout GI soft to palpation and non-tender Back/Spine normal ROM Extremity normal capillary refill and no calf tenderness Extremity Narrative: She has +1 edema bilateral lower extremities. Her edema is improved compared to previous notes. Peripheral Pulses: Yes pulses 2+ throughout Skin Skin Narrative: Healed incision on right anterior hip, small healed incision on right anterior thigh. General Skin Exam: no breakdown Neuro oriented x3 and moves all extremities Neuro Narrative: Patient needs to walk with walker since she had her hip surgery. Sensorium / Orientation: awake and alert Psych mental status grossly normal, cooperative and affect normal Appearance: appropriate and well kempt Debridement Note Debridement Note No debridement was completed: No debridement was completed today Post-Debridement Measurements and Additional Note: Post-Debridement Measurements/Treatment - Nurse 1 - General Ulcer Assessment Start: 06/25/22 08:10 Freq: Status: Active Protocol: ADELAIDA.[place] Activity Type Activity Date Activity User E-sign Co-sign Detail Recorded Client Recorded Date Recorded By Document 06/25/22 08:27 DL Desktop 06/25/22 08:43 DL 06/25/22 08:27 - Today's Visit Information Type of service Initial Visit Arrival Mode Ambulatory Transfer Assistance None Patient Identification Verified (Name & Yes ) Patient Requires Transmission-Based No Precautions Height and Weight Height 4 ft 9 in Weight 135 lb 9.985 oz Weight in Pounds 135.6 lbs Body Mass Index (BMI) 29.3 BMI Classification Overweight BSA - Ang 1.52 Vital Signs Temperature (97.8 F-99.1 F) 97.1 F L Temperature Source Temporal Pulse Rate (60-100) 101 H Pulse Location Monitor Respiratory Rate (12-18) 18 Respiratory rate source Observation Blood Pressure (90/60-120/80) 117/76 Blood Pressure Mean 89 Source Monitor Pain Scale: 0-10 Numeric Is Patient Pain Free? Yes Lower Extremity Assessment/ Foot Assessment/ Toe Nail Assessment Left -Popliteal Doppler Multiphasic -Posterior Tibial Palpable Yes -Posterior Tibial Doppler Multiphasic -Dorsalis Pedis Palpable Yes -Extremity Color Normal -Hair Growth on Legs No -Hair Growth on Toes No -Temperature of Extremity Warm -Capillary Refill Greater than 3 Seconds -Dependent Rubor No -Blanched when Elevated No -Lipodermatosclerosis No -Other Deformity No -Prior Foot Ulcer No -Charcot Joint No -Prior Amputation No -Thick No -Discolored No -Deformed No Right -Posterior Tibial Palpable Yes -Posterior Tibial Doppler Multiphasic -Dorsalis Pedis Palpable Yes -Dorsalis Pedis Doppler Multiphasic -Extremity Color Normal -Hair Growth on Legs No -Hair Growth on Toes No -Temperature of Extremity Warm -Capillary Refill Greater than 3 Seconds -Dependent Rubor No -Blanched when Elevated No -Lipodermatosclerosis No -Other Deformity Yes -Prior Foot Ulcer No -Charcot Joint No -Prior Amputation Yes -Thick No -Discolored No -Deformed No -Improper Length & Hygeine No Neuropathy Assessment Feet - Top Side and Bottom <Entered> (a) Communication Assessment Preferred language Ken[place] Able to Read Yes Able to Write No Right Hearing Abillity Normal Left Hearing Abillity Normal Visual Assistive Devices Glasses Teaching Assessment Preferences Verbal,Written, Demonstration Barriers to Learning None Readiness To Learn Good Willingness to Engage in Self Management Med Activies Readiness to Engage in Self Management Med Activities Anxiety Level Calm Cooperation Cooperative Perception Coherent Interest in Health Problem Asks Questions Education Importance Acknowledges Need Does Patient Smoke tobacco or other No substances Smoking Status Never smoker Is Patient Diabetic No Functional Assessment Recent Decline in Ability to Perform Denies Any Declines Culture/Congregational/Sales Promoter Cultural/Congregational Needs that may affect No Treatment Plan Would you allow our hospital aba tutor to No meet you for the purpose of spiritual/ emotional support? Sales Promoter to contact place of catholic No Teaching: Wound Center Dressing Your Wound -Person Taught Patient Discharge Instructions -Person Taught Patient *Welcome to the Wound Center -Person Taught Patient (a) 1 - + WC - Nurse 1 - General Ulcer Measurement Start: 06/25/22 08:10 Freq: Status: Active Protocol: Activity Type Activity Date Activity User E-sign Co-sign Detail Recorded Client Recorded Date Recorded By Document 06/25/22 08:27 DL Desktop 06/25/22 08:43 DL 06/25/22 08:27 Wound Center Nurse 1 Right Calf (cm) 36.6 Right Ankle (cm) 20 Right Foot (cm) 36.5 Left Calf (cm) 20.4 WC - Nurse 2 - General Ulcer CM Notes Start: 06/25/22 08:10 Freq: Status: Active Protocol: Activity Type Activity Date Activity User E-sign Co-sign Detail Recorded Client Recorded Date Recorded By Document 06/25/22 09:20 [id number] 06/25/22 09:29 06/25/22 09:20 Pain Scale: 0-10 Numeric Is Patient Pain Free? Yes WC - Nurse 3 - General Ulcer D/C NN Start: 06/25/22 08:10 Freq: Status: Active Protocol: Activity Type Activity Date Activity User E-sign Co-sign Detail Recorded Client Recorded Date Recorded By Document 06/25/22 09:35 DL Desktop 06/25/22 09:36 DL 06/25/22 09:35 Wound Care Center Nurse 3 Right -Tubular Bandage Double Layer -Size of Tubigrip Used Size D -Size D ($) 2 Left -Lotion applied to leg before Yes compression wrap -Tubular Bandage Double Layer -Size of Tubigrip Used Size D -Size D ($) 2 Treatment Response Procedure Tolerated Well Pain Scale: 0-10 Numeric Is Patient Pain Free? Yes WC - Visit Discharge Discharge Condition Stable Ambulatory Status Ambulatory Transportation Private Auto Charges/Coding Visit Charges Office Visits / Consults: [id number] OV L4 Est Assessment/Plan Assessment/Plan (1) Hip fracture requiring operative repair: CODE(S): S72.009A - Fracture of unspecified part of neck of unspecified femur, initial encounter for closed fracture (2) Hx of reduction of closed fracture: CODE(S): Z87.81 - Personal history of (healed) traumatic fracture (3) Bilateral edema of lower extremity: CODE(S): R60.0 - Localized edema (4) Atrial fibrillation with RVR: CODE(S): I48.91 - Unspecified atrial fibrillation (5) Physical debility: CODE(S): R53.81 - Other malaise PLAN: Plan Patient evaluated at the wound center today. She has a history of bilateral leg edema that she would benefit from compression stockings, especially since she broke her right hip in May. Since she lives alone, she is not able to apply traditional compression stock ings by her self. SHe would benefit from wearing Circaid stockings which would help control her edema and she would be able to apply them herself. Will order the Circaid stockings. Discussed with patient that when she is sitting, she needs to keep her legs elevated. She should sleep in a bed, not a recliner to help prevent further edema. She should continue her lasix which was prescribed, it is helping to control her edema. Today for compression will place double tubigrip bilateral lower legs. Will order Circaid stockings. When she obtains the stockings, she is to bring them in and we will instruct her how to wear them and how to care for them. Patient verbalized understanding. Follow up 2 weeks. Bring stockings with her when she comes.
== END 2022-07-04 23:59 | disposition home or self-care (01) ==
LOC: WC 07:41
PROVIDERS: PCP Family Medicine Geriatric Medicine; Referring Provider Internal Medicine; Visit Provider Nurse Practitioner Family
DX: S72.141A Displaced intertrochanteric fracture of right femur, initial encounter for closed fracture (principal); I27.20 Pulmonary hypertension, unspecified; I48.91 Unspecified atrial fibrillation; Z96.643 Presence of artificial hip joint, bilateral; I95.9 Hypotension, unspecified; G62.9 Polyneuropathy, unspecified; I25.10 Atherosclerotic heart disease of native coronary artery without angina pectoris; I10 Essential (primary) hypertension; R41.0 Disorientation, unspecified; R60.0 Localized edema; E78.2 Mixed hyperlipidemia; R53.81 Other malaise; Z87.81 Personal history of (healed) traumatic fracture
CPT/HCPCS: 99214; G0463

== ENCOUNTER → 2022-09-18 | Outpatient (CLI) | payer MEDICARE, OTHER, SELFPAY ==
[2022-09-18 14:35] LABS: Absolute Lymphocyte Count 1.16 X10^3/uL (0.83-4.51); Absolute Neutrophil Count 3.2 X10^3/uL (2.0-7.7); Basophil# 0.01 X10^3/uL; Basophil% 0.2 % (0-1); Hematocrit 39.3 % (37-47); Lymphocyte # 1.16 X10^3/ul (0.83-4.51); Lymphocyte % 23.7 % (19-41); Mean Corp Hgb Conc 33.1 g/dL (32-36); Mean Corpuscular Hgb 34.9 pg (27.0-32.0); Mean Corpuscular Volume 105.6 fL (81-99); Mean Platelet Vol. 8.5 fl (6.2-12.0); Monocyte# 0.46 X10^3/uL; Monocyte% 9.4 % (0-10); NRBC Flagged by Analyzer 0 % (0-5); Neutrophil # 3.16 X10^3/uL (2.7-7.7); Neutrophil % 64.5 % (47-70); Platelet Count 228 K/mm3 (150-450); RBC Distribution Width CV 14.3 % (11.6-14.6); Red Blood Count 3.72 M/mm3 (4.2-5.4); White Blood Count 4.9 K/mm3 (4.4-11.0)
[2022-09-18 15:14] LABS: ALB/GLOB Ratio 1.2 RATIO (0.9-2.4); AST(SGOT) 25 U/L (15-37); Alanine Aminotransfer ALT/SGPT 25 U/L (13-56); Albumin, Serum 4.1 g/dL (3.2-5.0); Alkaline Phosphatase 92 U/L (45-117); Anion Gap 4 (5-15); BUN 9 mg/dL (7-18); BUN/Creat Ratio 10.3 RATIO (10-20); Calcium,Total 9.5 mg/dL (8.5-10.1); Chloride 103 mmol/L (98-107); Creatinine, Serum 0.87 mg/dL (0.55-1.02); EST Glomerular Filtration Rate 67 mL/min (>60); Est Glom Filt Rate - Afr Amer 81 mL/min (>60); Globulin 3.5 g/dL (2.2-4.2); Glucose 111 mg/dL (74-106); Potassium 3.4 mmol/L (3.5-5.1); Protein, Total 7.6 g/dL (6.4-8.2); Sodium Level 138 mmol/L (136-145); Thyroid Stim Hormone (TSH) 0.63 uIU/mL (0.358-3.74)
[2022-09-18 15:26] LABS: Vitamin D,25 Hydroxy 39.6 ng/mL
== END | disposition home or self-care (01) ==
LOC: LAB 13:48
PROVIDERS: PCP Family Medicine Geriatric Medicine; Referring Provider Family Medicine Geriatric Medicine; Visit Provider Family Medicine Geriatric Medicine
DX: E55.9 Vitamin D deficiency, unspecified (principal); E11.65 Type 2 diabetes mellitus with hyperglycemia; I10 Essential (primary) hypertension
CPT/HCPCS: 36415; 80053; 82306; 84443; 85025

== ENCOUNTER 2022-11-20 11:30 | Outpatient (RCR) | payer OTHER, MEDICARE, SELFPAY ==
--- NOTE | 2022-08-13 12:38 | WC ---
Justyna From worker's comp called again regarding patient's stockings. Notified [employer] for the 3rd time and no further actions have been done since my last call to them. Requested at this time for [employer] to ship medium short circaids to BLE's and if they don't fit, they can be returned. Left a message with patient's MCO Justyna in addition to patient leaving a message on her voicemail to call us for a nurse visit for education on application. Have not been able to speak to the patient directly, can only leave voicemails and her home phone does not work.
--- NOTE | 2022-09-09 08:35 | HP.PTEVAL_ITS ---
Patient's Visit Information MARGARETTE WISE is a 76 year old F referred to Physical Therapy by Dr. Rancho Canas, with a diagnosis of DISPLACED INTERTROCHANTERIC PROXIMAL FEMUR FRACTURE. Date of Evaluation: 08/12/22 Physical Therapist: Talon Rust, PT, Cert MDT, OCS - Visit Plan Frequency: 2-3x /Week Duration: 6 Weeks Plan: s/p IM nailing. PT INTERVETIONS ROM HIP/KNEE ,STRENGTHENING QUADS/HAMS/HIP ,GAIT/BALANCE TRAINING AND FUNCTIONAL STRENGTHENING - Subjective This 76 female presents to physical therapy for right femur fracture. Patient fell at work [employer] on right hip went to ER via squad where patient had x rays showed -Acute, intratrochanteric fracture of the right femur. Thus underwent s/p intertrochanteric hip fracture with intramedullary nail right femur on 05/14/[address] Canas. Patient was transferred to Rehab for therapy. Patient had US to r/o DVT and received blood due to decrease Hemoglobin. Also had CATSCAN . Patient d/c to friends home and received and [facility] PT . Patient return July . and [facility] PT and d/c last week. Patient has min pain. Denies paresthesia/tingling-. Patient has difficulty walking extended distances and stand thus uses . Patient use stairs one step at time. Patient is unable to squat/kneel. Patient is able bath and dress. Patient lives module home with steps with rail . Patient has tub/shower with tube seat. Patient initially used fww and transferred to . Patient goals walk with and get stronger. Medication: OXYCODINE. SOCIAL: single. 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 - Pain Right Hip Pain Intensity (Out of 10): 5 Pain Intensity Range: 10 - Objective POSTURE: mild forward posture slight hip knee. NEURO: denies paresthesia/tingling ,reflexes intact. SKIN: incision well approximate. GAIT: ambulates with with 2 point gait mild forward posture slow kaylie with decrease stance right leg. BALANCE: fair+ with QC. AROM: supine knee flexion 115 degrees, hip abduction 35 degrees ,hip flexion 80 degrees. MMT:( peak force) quads 20.7 ,hamstrings 19.6 ,hip flexion 15.5 , hip abduction 0,ankle 4/5 - Balance/Special Test Scores Lower Extremity Functional Score: 29 - Goals Goal 1:: Patient to be I with HEP right hip Goal Time Frame: 6-8 Weeks Goal 2:: Patient to normalize gait without device with improved gait pattern Goal Time Frame: 6-8 Weeks Goal 3:: Patient to increase peak force hip by 10-15 ,quads/hams 5-10 MMT to improve gait Goal Time Frame: 6-8 Weeks Goal 4:: Patient to demonstrate 50% improvement with function and less pain. Goal Time Frame: 6-8 Weeks Goal 5:: Patient to improve LFES score by 5-10 to improve function and QOL Goal Time Frame: 6-8 Weeks Goal 6:: Patient to improve AROM hip /knee by 5-10 degrees to improve stairs Goal Time Frame: 6-8 Weeks - Rehabilitation Potential Physical Therapy Diagnosis: This patient fell sustained femur fx thus s/p IM nailing with decrease ROM ,weakness especially hip abd, decrease gait ,balance impairs ADLS and unable to RTW thus benefit from skilled PT Rehabilitation Potential: Good - Anticipated Interventions Patient/Client Instruction: Educate patient on: Condition, Plan of Care For the Purpose of:: To decrease pain, To increase ROM, To improve muscle performance and motor function, To improve ability to perform ADL's, To increase tolerance to activity/condition/position, To improve ability of physical actions for home/community/work/leisure, To improve gait and locomotor functions, To improve health of tissue, To decrease soft tissue restriction, To increase flexibility/ROM, To improve endurance, To improve balance Therapeutic Exercise to Include: Strength training, Endurance training, Balance training, Flexibilty training, Gait and locomotor training, Active ROM Comment: QUADS/HAMS/HIP For the Purpose of:: To decrease pain, To increase ROM, To improve muscle performance and motor function, To improve ability to perform ADL's, To increase tolerance to activity/condition/position, To improve ability of physical actions for home/community/work/leisure, To improve gait and locomotor functions, To improve health of tissue, To decrease soft tissue restriction, To increase flexibility/ROM, To improve endurance, To improve balance Thank you for the opportunity to evaluate your patient. For Medicare and Medicare HMO plans, please review the plan of care and approve it. It will need to be FAXED BACK to us at [phone] for Medicare purposes. For Medicare only, by signing this I certify the plan of care. Please let me know if there are questions or concerns regarding this plan of care. Physician Signature: Date:
--- NOTE | 2022-11-20 11:57 | HP.PTDCSUM ---
Discharge Summary D/C summary: It has been my pleasure to treat MARGARETTE WISE referred by Dr. Rancho Canas DO, with the diagnosis of DISPLACED INTERTROCHANTERIC PROXIMAL FEMUR FRACTURE for a total of 26 visit(s). Discharge Date: Please see the following information for a summary of their discharge status. Subjective Subjective: Patient plans to have surgery ~1 week next to remove a pin. Pain Right Hip: Pain Intensity (Out of 10): 7 Overall Improvement % Improvement: 0 Objective Objective/Function: POSTURE: mild forward posture slight hip knee. NEURO: denies paresthesia/tingling ,reflexes intact. SKIN: incision well approximate. GAIT: ambulates with QC with 2 point gait mild forward posture slow kaylie with decrease stance right leg. BALANCE: fair+ with QC. AROM: supine knee flexion 115 degrees, hip abduction 35 degrees ,hip flexion 90 degrees. MMT:( peak force) quads 21.7 ,hamstrings 20.8 ,hip flexion 23.5 , hip abduction 0,ankle 4/5 Goals Goal 1:: Patient to be I with HEP right hip Goal Progress: Progressing Goal 2:: Patient to normalize gait without device with improved gait pattern Goal Progress: Progressing Goal 3:: Patient to increase peak force hip by 10-15 ,quads/hams 5-10 MMT to improve gait Goal Progress: Progressing Goal 4:: Patient to demonstrate 50% improvement with function and less pain. Goal Progress: Not Progressing Goal 5:: Patient to improve LFES score by 5-10 to improve function and QOL Goal Progress: Progressing Goal 6:: Patient to improve AROM hip /knee by 5-10 degrees to improve stairs Goal Progress: Progressing Plan Plan: D/C DUE TO SURGERY D/C Information d/c sentence: If there are questions or concerns regarding this patient's physical therapy, please feel free to call me at [phone]. Thank you for the referral of this patient. Sincerely, Talon Rust, PT, Cert MDT, OCS Balance/Gait/Functional tests Balance/Special Test Scores Lower Extremity Functional Score: 32
== END 2022-11-20 19:00 | disposition home or self-care (01) ==
LOC: PT 11:30
PROVIDERS: PCP Family Medicine Geriatric Medicine; Referring Provider Student in an Organized Health Care Education/Training Program; Visit Provider Student in an Organized Health Care Education/Training Program
DX: S72.141D Displaced intertrochanteric fracture of right femur, subsequent encounter for closed fracture with routine healing (principal)
CPT/HCPCS: 97110; 97162; 97530

== ENCOUNTER 2022-11-27 14:51 | Inpatient (IN) | payer OTHER, MEDICARE, SELFPAY ==
--- NOTE | 2022-11-19 08:41 | EKG12_ITS ---
Test Reason : PRE OP Blood Pressure : / mmHG Vent. Rate : 100 BPM Atrial Rate : 127 BPM P-R Int : 000 ms QRS Dur : 094 ms QT Int : 370 ms P-R-T Axes : 000 045 001 degrees QTc Int : 477 ms Atrial fibrillation Incomplete right bundle branch block Nonspecific ST abnormality , probably digitalis effect Abnormal ECG Confirmed by NASREEN PRINGLE ([id number]), editor in chief newspaper KINZA GORDILLO ([id number]) on 11/24/2022 1:55:14 PM Referred By: Rancho Canas Confirmed By:NASREEN PRINGLE
--- NOTE | 2022-11-19 08:50 | RAD_ITS ---
INDICATION: PREOP EXAMINATION/TECHNIQUE: X-RAY - XR Chest 2 Views COMPARISON: 05/12/2022 FINDINGS: LIFE-SUPPORT AND LINES: 1. None HEART AND VESSELS: Cardiac silhouette is large, negligible change. No evidence of congestive failure. LUNGS AND PLEURAL SPACES: Shallow inspiration bibasilar atelectasis and crowding of bronchovascular markings without focal infiltrate or consolidation. No pulmonary mass is noted. MEDIASTINUM AND HILAR REGIONS: No masses adenopathy noted. No areas of calcification. Visualized upper airway is normal in position. BONY ELEMENTS: Postprocedural changes of prior kyphoplasty. No acute bony changes. RAD/Chest PA and Lateral IMPRESSION: 1. Stable exam. 2. Stable cardiomegaly, no evidence of congestive failure, infiltrate or effusion. Electronically Signed: Keagan Cronin MD at 22:49 EDT ,
[2022-11-19 09:47] LABS: Absolute Lymphocyte Count 1.15 X10^3/uL (0.83-4.51); Absolute Neutrophil Count 2.8 X10^3/uL (2.0-7.7); Basophil# 0.01 X10^3/uL; Basophil% 0.2 % (0-1); Eosinophil# 0.13 X10^3/uL; Eosinophils% 2.9 % (0-5); Hematocrit 38.1 % (37-47); Hemoglobin 12.6 g/dL (12.0-15.0); Lymphocyte # 1.15 X10^3/ul (0.83-4.51); Lymphocyte % 25.3 % (19-41); Mean Corp Hgb Conc 33.1 g/dL (32-36); Mean Corpuscular Hgb 33.8 pg (27.0-32.0); Mean Corpuscular Volume 102.1 fL (81-99); Mean Platelet Vol. 8.7 fl (6.2-12.0); Monocyte# 0.42 X10^3/uL; Monocyte% 9.3 % (0-10); NRBC Flagged by Analyzer 0 % (0-5); Neutrophil # 2.82 X10^3/uL (2.7-7.7); Neutrophil % 62.1 % (47-70); Platelet Count 184 K/mm3 (150-450); RBC Distribution Width CV 12.4 % (11.6-14.6); RBC Distribution Width SD 46.8 fl (35.1-43.9); Red Blood Count 3.73 M/mm3 (4.2-5.4); White Blood Count 4.5 K/mm3 (4.4-11.0)
[2022-11-19 10:03] LABS: Anion Gap 4 (5-15); BUN 17 mg/dL (7-18); BUN/Creat Ratio 18.9 RATIO (10-20); Calcium,Total 9.3 mg/dL (8.5-10.1); Chloride 107 mmol/L (98-107); EST Glomerular Filtration Rate 65 mL/min (>60); Est Glom Filt Rate - Afr Amer 78 mL/min (>60); Glucose 123 mg/dL (74-106); Potassium 3.8 mmol/L (3.5-5.1); Sodium Level 141 mmol/L (136-145)
[2022-11-27] VITALS (10 sets, daily range): BP systolic 95–146; BP diastolic 66–94; PULSE 76–95; RESP 14–18; TEMP 36.2–36.7; O2SAT 94–100; BMI 29.5
[2022-11-27] MEDS: Lactated Ringers 1,000 ML 15 ML IV (10:00)
--- NOTE | 2022-11-27 10:45 | RAD_ITS ---
STUDY: X-RAY - PELVIS AND RIGHT HIP REASON FOR EXAM: Female, 77 years old. Intraoperative digital documentation views TECHNIQUE: 4 intraoperative digital documentation views of the pelvis and hip. COMPARISON: Pelvis and hip images dated May 2022. FINDINGS: 4 intraoperative digital documentation of view show intramedullary phani with interlocking dynamic hip screw. RAD/Hip Min 2 Views (Portable) IMPRESSION: Intraoperative digital documentation views as described. Electronically Signed: Yohan Lamb MD at 9:35 EDT ,
[2022-11-27] MEDS: Cefazolin 1 GM/50 ML BAG IV ×2 (11:50→21:22)
[2022-11-27] MEDS: Bupivacaine 0.25% 30 ML Vial (12:36)
--- NOTE | 2022-11-27 14:10 | PN.HOSP_ITS ---
Reason for Visit Reason for Visit: Diagnoses Encounter for other preprocedural examination (11/27/22) Subjective Subjective Medicine consulted for medical management of patient after her procedure today for revision of her hip fracture. Patient seen at bedside. Seen comfortably in bed, conversing normally, in no acute distress. She states that she has only mild pain in her right hip after the procedure earlier today. She denies any fevers or chills. Denies any numbness or tingling down her right leg. She has been resting in bed, has not tried to ambulate since the procedure. No other acute concerns. Objective Data Objective Data Vital Signs: Vital Signs Temp Pulse Resp BP Pulse Ox O2 Del Method O2 Flow Rate 97.8 F 80 18 130/85 H 98 Room Air 4 11/27/22 14:02 11/27/22 14:02 11/27/22 14:02 11/27/22 14:02 11/27/22 14:02 11/27/22 14:02 11/27/22 13:15 Oxygen Flow Rate (L/min) 4 Oxygen Delivery Method Room Air Weight: 62 kg Body Mass Index (BMI) 29.5 Intake & Output: Intake and Output for Last 24 Hours 11/25/22 11/26/22 11/27/22 23:59 23:59 23:59 Intake Total 50 / 50 Balance 50 / 50 Lab / Micro Data 11/19/22 08:32 11/19/22 08:32 Physical Exam Const alert, oriented x3, no apparent distress, average body habitus, healthy ap pearing and well nourished Constitutional Narrative: Pleasant female, conversing normally, no acute distress. General Appearance: cooperative, comfortable, well kempt and well developed HEENT normocephalic, head/scalp atraumatic, hearing grossly normal bilaterally, nasal mucous membranes and turbinates normal and moist oral mucous membranes Eyes PERRL, EOMs intact bilaterally and conjunctivae normal Neck full ROM, no lymphadenopathy and supple Lymph Lymphatic: no lymphadenopathy noted Chest inspection of chest normal Resp normal respiratory effort, normal air movement, no use of accessory muscles and clear to auscultation bilaterally Cardio regular rate, regular rhythm, no murmurs and peripheral pulses 2+ throughout GI normal to inspection, nondistended, normoactive bowel sounds, soft to palpation, non-tender and non-distended Back/Spine normal ROM Extremity normal to inspection Extremity Narrative: Right hip incision site bandaged, appeared clean and dry. Skin no rashes or lesions noted Psych mental status grossly normal Assessment & Plan Assessment/Plan (1) Hip fracture requiring operative repair: PLAN: Plan Patient is a 77-year-old female with history of colon cancer s/p hemicolectomy in 2020, brain mets with hemorrhage while on AC (now stable), A-fib not on AC, hypertension, hyperlipidemia and hip fracture in 05/2022 s/p right femur nail p lacement who presented to [facility] on 11/27/2022 for a planned revision of her right femur nail placement. 1. Surgical revision of right femur fracture, physical debility S/p surgical revision on 11/[address] Canas. Patient tolerated procedure well. Patient initially suffered fall with hip fracture back in May of this year. Had surgery at that time and completed outpatient physical therapy. However, there apparently were issues with the placement of the intramedullary nail, and it needed to be surgically revised. ?PT/OT/case management consulted. Aspirin 81 mg twice daily for DVT prophylaxis per orthopedics. Pain control with Tylenol and oxycodone as needed. 2. Paroxysmal A-fib - Follows outpatient with cardiology. Not an anticoagulation candidate given her history of brain bleed on anticoagulation. Continue home Lopressor and isosorbide mononitrate. 3. Hyperlipidemia ? Continue home pravastatin. DVT prophylaxis: Aspirin twice daily CODE STATUS: Full code, unverified Expected disposition: Home, 1 to 2 days Total clinical time spent by myself addressing the patient's medical issues, reviewing all the data, and collaborating with patient's care team: 35 minutes. Charges/Coding Visit Charges Inpatient E&M: 79536 Subs Hosp L2
[2022-11-27] MEDS: Oxycodone/Apap 5/325 Tablet PO (14:23)
--- NOTE | 2022-11-27 15:34 | CHAPLAIN ---
Type of Pastoral Visit ___ Initial Visit ___ Follow-up Visit ___ On-call Visit ___ General Patient Visit ___ Spiritual Assessment ___ Family Conference ___ Bereavement ___ Rapid Response ___ Code Blue ___ Other (describe below) Pastoral Care Referral From ___ Patient ___ Family ___ Nurse ___ Physician ___ Grand Scribe ___ Lift Truck Mechanic ___ Other (describe below) Sacrament/Intervention ___ Active listening ___ Anointing ___ Jewish ___ Bereavement ___ Communion ___ Dawna exploration ___ ___ Life review ___ Prayer ___ Reconciliation ___ Sacrament of Sick ___ Supportive presence ___ Wedding ___ Other (describe below) Pastoral Comments patient is sleeping; did not disturb
--- NOTE | 2022-11-27 16:09 | OP.PCM_ITS ---
Report of Operation Date of Procedure: 11/27/22 Description of Surgical Findings:: Preoperative diagnosis: Right hip symptomatic hardware Postoperative diagnosis: Right hip symptomatic hardware Procedure: Revision right femur cephalomedullary nail Surgeon: Rancho Canas DO Shingles Roofer: Sabrina Pink PA-C Anesthesia: General endotracheal Anesthesiologist: Dr. Blair Complications: None Drains: None Estimated blood loss: 200 cc Urinary output: None recorded IV fluids: 1 L crystalloid Specimens: None Surgical implants: Isabel 75 mm lag screw for Gamma 3 Surgical indications: This is a 77 F who sustained a fall on 05/12/22 at work and sustained a right intertrochanteric femur fracture. She underwent uncomplicated right femur cephalomedullary nailing on 05/14/22. She recovered uneventfully. She is returning ambulation well. She has had persistent lateral hip pain. X- rays and serial follow-ups showed a well-healed intertrochanteric femur fracture. There was controlled collapse of the fracture with excellent compression. This unfortunately produced a proud screw from the lateral cortex of the proximal femur. This was causing significant lateral hip pain and bursitis. We attempted physical therapy and oral analgesics without relief. I recommended surgical intervention in the form of revision right cephalomedullary nail with exchange of the leg screw. The risks, benefits, terms the procedure reviewed with the patient at length and she agreed to proceed. Risk included but were not limited to bleeding, flexion, loss of life or limb, fracture, nonhealing wounds, persistent pain, neurovascular injury, DVT or PE. Patient expressed understanding of these risks and wished to proceed with surgery. Description of procedure: Patient was seen in preoperative holding area. She was identified by name, medical record number, date of . The operative extremity was marked with a surgical marker. We confirmed informed consent with the patient and questions were answered to her satisfaction. Patient was brought to the operative suite, and general anesthesia was induced on her hospital bed. Endotracheal tube was secured. After adequate anesthesia, patient was transferred to a fracture table with all bony prominences being well-padded. A perineal post was placed to secure the patient on the table. We then applied a ski boot which was well-padded to the operative extremity. The well leg was dropped into extension and secured to the axial post of the fra cture table with a pillow and Coban. The right arm was brought across patient's chest with a blanket on her chest. We then prepped and draped the right lower extremity in normal, sterile orthopedic fashion. A timeout was performed with all parties in attendance in agreement with the side, site, and operation be performed. 2 g Ancef was administered prior to incision. No concerns were voiced and we elected to proceed. I first identified the scar from the proximal incision. This was opened with a 10 blade scalpel and extended distally approximately 3 cm. Skin flaps were developed down to the fascia arvind. Fascia arvind was opened. The tip of the nail was able to be palpated. There is significant fibrous tissue overlying it. This was debrided with a rongeur. I was then able to pass the screwdriver for the setscrew into the nail and loosen the setscrew. This was left in place after loosening. I then turned my attention distally. The leg screw incision was then identified and opened with a 10 blade scalpel. The base of the screw was easily palpated. I placed a threaded guidewire through the cannulated screw. I then attached the locking screwdriver and remove the lag screw. Fracture was well-healed on fluoroscopy. I then measured for a 75 mm lag screw. This was placed in standard fashion with excellent purchase. Orthogonal fluoroscopy confirmed appropriate hardware placement and size. Final fluoroscopic images were obtained. We irrigated the wounds copiously with normal saline solution. Hemostasis was excellent at this point. We then closed the deeper layers, IT band with 0 Vicryl. Intradermal buried stitches of 2-0 Vicryl were utilized and skin finally reapproximated with skin evie. Sterile compression dressing of Xeroform, 4 x 4's, and Tegaderm was applied. Patient tolerated procedure well without complication. She was transferred back to her hospital bed and subsequently to PACU in stable condition. Need for skilled psychologist research assistant: Sabrina Pink PA-C was critical to the outcome of the case. During the course of the procedure the physician psychologist research assistant played a vital role. Her intimate knowledge of my steps in the procedure aided in safe and expedient completion of the procedure. The PA played a vital role in positioning particularly in obtaining the appropriate positioning. The PA was also vital in the retraction of soft tissues during the exposure and protecting vital structures. The PA was also critical with assisting with hardware removal and placement. She also played a vital role in closure and dressing application with my direct supervision. Intraoperative medications: 2 g Ancef IV Post Operative Plan: Patient will be placed in observation overnight for early convalescence medical monitoring. We will mobilize with physical and Occupational Therapy. Weightbearing: Weightbearing as tolerated right lower extremity with a walker Antibiotics: Ancef 2 g x 3 doses postoperatively, 1 dose given preoperatively DVT Prophylaxis: Lovenox to start tomorrow morning Courtney: None Dressing: Dry sterile dressing changes daily and as needed for saturation X-Rays: 2 weeks postop in the office Follow-up: 2 weeks post-operatively with me in the office
[2022-11-27] MEDS: Pravastatin 40 MG Tablet PO (22:58)
[2022-11-27] MEDS: Pantoprazole Sodium 40 MG Tablet PO (22:58)
[2022-11-28] VITALS (7 sets, daily range): BP systolic 90–113; BP diastolic 50–93; PULSE 73–101; RESP 16–18; TEMP 36.9–37.3; O2SAT 94–97
[2022-11-28] MEDS: Cefazolin 1 GM/50 ML BAG IV (03:46)
[2022-11-28 06:23] LABS: Hematocrit 22.3 % (37-47); Hemoglobin 7.5 g/dL (12.0-15.0); Mean Corp Hgb Conc 33.6 g/dL (32-36); Mean Corpuscular Hgb 33.8 pg (27.0-32.0); Mean Corpuscular Volume 100.5 fL (81-99); Mean Platelet Vol. 9.1 fl (6.2-12.0); Platelet Count 140 K/mm3 (150-450); RBC Distribution Width CV 12.7 % (11.6-14.6); RBC Distribution Width SD 45.5 fl (35.1-43.9); Red Blood Count 2.22 M/mm3 (4.2-5.4)
[2022-11-28 06:57] LABS: Anion Gap 5 (5-15); BUN 14 mg/dL (7-18); BUN/Creat Ratio 20.2 RATIO (10-20); Calcium,Total 8.6 mg/dL (8.5-10.1); Chloride 107 mmol/L (98-107); Creatinine, Serum 0.69 mg/dL (0.55-1.02); EST Glomerular Filtration Rate 87 mL/min (>60); Est Glom Filt Rate - Afr Amer 105 mL/min (>60); Estimated Creatinine Clearance 46.11 ml/min; Glucose 128 mg/dL (74-106); Potassium 4.1 mmol/L (3.5-5.1); Sodium Level 139 mmol/L (136-145)
--- NOTE | 2022-11-28 07:29 | PCM.PN.ORT ---
Subjective Subjective Patient seen and examined. Denies any new complaints. States she did not require any pain medicine overnight. Up with nursing to the bathroom. Dressing was changed overnight due to bloody drainage. She denies any lightheadedness or dizziness, chest pain or shortness of breath, nausea or vomiting. Denies fevers or chills. Patient reports several episodes of postoperative anemia requiring blood transfusion. Objective Data Objective Data Vital Signs: Vital Signs Temp Pulse Resp BP Pulse Ox O2 Del Method O2 Flow Rate 98.4 F 87 16 99/56 L 94 Room Air 4 11/28/22 06:28 11/28/22 06:28 11/28/22 06:28 11/28/22 06:28 11/28/22 06:28 11/28/22 06:28 11/27/22 13:15 Oxygen Flow Rate (L/min) 4 Oxygen Delivery Method Room Air Weight: 136 lb 10.986 oz Body Mass Index (BMI) 29.5 Intake & Output: Intake and Output for Last 24 Hours 11/26/22 11/27/22 11/28/22 23:59 23:59 23:59 Intake Total 404.25 / 604.25 350 / 350 Balance 404.25 / 604.25 350 / 350 Lab / Micro Data 11/28/22 05:15 11/28/22 05:15 Labs: Laboratory Results - last 24 hr 11/28/22 05:15: WBC 8.0, RBC 2.22 L, Hgb 7.5 L, Hct 22.3 L, MCV 100.5 H, MCH 33.8 H, MCHC 33.6, RDW Std Deviation 45.5 H, RDW Coeff of Oralia 12.7, Plt Count 140 L, MPV 9.1, Sodium 139, Potassium 4.1, Chloride 107, Carbon Dioxide 27.0, Anion Gap 5, BUN 14, Creatinine 0.69, Estim Creat Clear Calc 46.11, Est GFR (MDRD) Af Amer 105, Est GFR (MDRD) Non-Af 87, BUN/Creatinine Ratio 20.2 H, Glucose 128 H, Calcium 8.6 Physical Exam Narrative General - A&Ox3, NAD. VSS/AF Right lower extremity -incisional dressing shows scant sanguinous spotting, otherwise clean dry and intact. SILT Sural, Saphenous, SPN, DPN, Tibial N. distributions. DP, PT 2+. BCR. DF, PF, EHL /5. No calf TTP. Assessment & Plan Assessment/Plan (1) Retained orthopedic hardware: PLAN: POD#1 s/p revision right hip cephalomedullary nail - Acute blood loss anemia with hemoglobin 7.5 this morning, suspect combination of anticipated blood loss with surgery and dilution component. Hold aspirin. Recheck hemoglobin at noon today and consider packed red blood cell transfusion. - Pain control - Medicine following for medical management - PT/OT -weightbearing as tolerated right lower extremity - DVT PPX -holding aspirin today due to anemia, SCDs, SIMIN kwakue, early mobilization - Case management - D/C planning -Likely plan for discharge tomorrow given anemia. (2) Acute blood loss anemia:
[2022-11-28] MEDS: Pantoprazole Sodium 40 MG Tablet PO ×2 (08:13→21:03)
--- NOTE | 2022-11-28 11:02 | PCM.PN.HOSP ---
Reason for Visit Reason for Visit: Diagnoses Acute posthemorrhagic anemia (11/27/22) Fracture of unspecified part of neck of unspecified femur, initial encounter for closed fracture (11/27/22) Encounter for other preprocedural examination (11/27/22) Presence of functional implant, unspecified (11/27/22) Subjective Subjective Patient feeling well overall, remains in the hospital due to postop anemia, reports she has been up moving around with no significant complaints Objective Data Objective Data Vital Signs: Vital Signs Temp Pulse Resp BP Pulse Ox O2 Del Method O2 Flow Rate 98.4 F 88 18 96/50 L 96 Room Air 4 11/28/22 08:08 11/28/22 08:08 11/28/22 08:08 11/28/22 08:08 11/28/22 08:08 11/28/22 08:08 11/27/22 13:15 Oxygen Flow Rate (L/min) 4 Oxygen Delivery Method Room Air Weight: 62 kg Body Mass Index (BMI) 29.5 Intake & Output: Intake and Output for Last 24 Hours 11/26/22 11/27/22 11/28/22 23:59 23:59 23:59 Intake Total 404.25 / 604.25 350 / 350 Balance 404.25 / 604.25 350 / 350 Lab / Micro Data 11/28/22 05:15 11/28/22 05:15 Labs: Laboratory Results - last 24 hr 11/28/22 05:15: WBC 8.0, RBC 2.22 L, Hgb 7.5 L, Hct 22.3 L, MCV 100.5 H, MCH 33.8 H, MCHC 33.6, RDW Std Deviation 45.5 H, RDW Coeff of Oralia 12.7, Plt Count 140 L, MPV 9.1, Sodium 139, Potassium 4.1, Chloride 107, Carbon Dioxide 27.0, Anion Gap 5, BUN 14, Creatinine 0.69, Estim Creat Clear Calc 46.11, Est GFR (MDRD) Af Amer 105, Est GFR (MDRD) Non-Af 87, BUN/Creatinine Ratio 20.2 H, Glucose 128 H, Calcium 8.6 Radiography Diagnostic Testing: Radiology Impression Hip X-Ray 11/27/22 10:45 IMPRESSION: Intraoperative digital documentation views as described. Electronically Signed: Yohan Lamb MD at 9:35 EDT , Physical Exam Narrative General: Alert, oriented, no apparent distress HEENT: Atraumatic, normocephalic Eyes: Anicteric, normal conjunctiva, extraocular movements grossly intact Neck: Supple Respiratory: Clear to auscultation bilaterally, normal respiratory effort Cardiovascular: Irregularly irregular, no tachycardia GI: Soft, nontender, nondistended Extremities: No edema Musculoskeletal: Moving all extremities Neuro: No overt focal neurological deficits Skin: No rashes appreciated, no significant drainage on dressing over hip Psych: Cooperative Assessment & Plan Assessment/Plan (1) Hip fracture requiring operative repair: PLAN: Plan Patient is a 77-year-old female with history of colon cancer s/p hemicolectomy in 2020, brain mets with hemorrhage while on AC (now stable), A-fib not on AC, hypertension, hyperlipidemia and hip fracture in 05/2022 s/p right femur nail placement who presented to [facility] on 11/27/2022 for a planned revision of her right femur nail placement. #Surgical revision of right femur fracture, physical debility S/p surgical revision on 11/[address] Canas. Patient tolerated procedure well. Patient initially suffered fall with hip fracture back in May of this year. Had surgery at that time and completed outpatient physical therapy. However, there apparently were issues with the placement of the intramedullary nail, and it needed to be surgically revised. ?PT/OT/case management consulted. Aspirin 81 mg twice daily for DVT prophylaxis per orthopedics. Pain control with Tylenol and oxycodone as needed. -11/28: Management per primary #Postop anemia -Patient with soft BP, adjusted home medications, patient completely asymptomatic and was able to get up and walk around without difficulty -Suspect this is all postop related, patient denies any other blood loss, CBC repeating this afternoon will trend again tomorrow. Transfuse if hemoglobin less than 7 #Paroxysmal A-fib - Follows outpatient with cardiology. Not an anticoagulation candidate given her history of brain bleed on anticoagulation. Continue home Lopressor and isosorbide mononitrate. #Hyperlipidemia ? Continue home pravastatin. DVT prophylaxis: Aspirin twice daily CODE STATUS: Full code, unverified Expected disposition: Home, 1 to 2 days Total clinical time spent by myself addressing the patient's medical issues, reviewing all the data, and collaborating with patient's care team: 30 minutes. Charges/Coding Visit Charges Inpatient E&M: 09897 Subs Hosp L1
--- NOTE | 2022-11-28 11:15 | CASEMGMT ---
JAZLYN NASSAR Discharge Planning Assessment: Face to Face with patient for initial transition planning/care coordination assessment.?JAZLYN NASSAR introduced self and role at [facility], pt sitting up in chair, alert, answering questions appropriately, voices understanding and is agreeable to participating in assessment.? Care providers, pharmacy,?and demographics verified. ? Admitting dx: revision rt femur cephalomedulla PCP: Carlos Enrique Specialists: neurologist in [place]; [facility] Preferred Pharmacy: [facility] Retail Insurance: OBW, [facility] A/B, [facility] Prescription Benefit:?yes LNOK: son Shiv Living Arrangements: Pt lives alone in a mobile home with 3 steps and a handrail to enter. Pt states she has been independent with ADLs prior to admission. Pt's son assists with outdoor maintenance tasks. Transportation: Pt drives and denies any concerns with transportation DME: quad cane, comfort height toilet, wheeled and standard walkers, SNF: [facility]: [facility] Pt's Plan: Return home with the support of a friend who is planning to stay with pt the first few days after discharge. Pt states she has an appointment at [facility] for outpt therapy and denies any transportation concerns for this appointment. Pt states she plans to drive herself if she is not taking any pain medication. Pt states she has the [facility] transportation information if she needs to use this as a back up. Plan: Home w/outpt tx. Katarina Valencia RN CM
[2022-11-28] MEDS: Ferrous Sulfate 325 MG Tablet PO ×2 (11:28→17:30)
[2022-11-28 11:36] LABS: Hematocrit 23.5 % (37-47); Hemoglobin 8.1 g/dL (12.0-15.0); Mean Corp Hgb Conc 34.5 g/dL (32-36); Mean Corpuscular Hgb 34.6 pg (27.0-32.0); Mean Corpuscular Volume 100.4 fL (81-99); Mean Platelet Vol. 8.6 fl (6.2-12.0); Platelet Count 155 K/mm3 (150-450); RBC Distribution Width CV 12.8 % (11.6-14.6); RBC Distribution Width SD 45.7 fl (35.1-43.9); Red Blood Count 2.34 M/mm3 (4.2-5.4); White Blood Count 7.9 K/mm3 (4.4-11.0)
[2022-11-28] MEDS: Lactated Ringers 500 ML 999 ML IV (17:54)
[2022-11-28] MEDS: Acetaminophen 325 MG Tablet 650 MG PO (17:54)
[2022-11-28] MEDS: 0.9% Saline Lock 10 ML Syringe IV (17:55)
[2022-11-28] MEDS: Pravastatin 40 MG Tablet PO (21:03)
[2022-11-29] VITALS (10 sets, daily range): BP systolic 88–119; BP diastolic 43–71; PULSE 67–106; RESP 16–19; TEMP 36.4–37.4; O2SAT 96–100
[2022-11-29] MEDS: Senna/Docusate Sodium 1 Tablet PO (05:17)
[2022-11-29] MEDS: Acetaminophen 325 MG Tablet 650 MG PO ×2 (05:17→14:56)
[2022-11-29 06:12] LABS: Absolute Lymphocyte Count 1.13 X10^3/uL (0.83-4.51); Absolute Neutrophil Count 3.4 X10^3/uL (2.0-7.7); Eosinophil# 0.05 X10^3/uL; Hemoglobin 6.9 g/dL (12.0-15.0); Lymphocyte # 1.13 X10^3/ul (0.83-4.51); Mean Corp Hgb Conc 32.9 g/dL (32-36); Mean Corpuscular Hgb 34.2 pg (27.0-32.0); Mean Platelet Vol. 8.9 fl (6.2-12.0); Monocyte# 0.57 X10^3/uL; Monocyte% 11.1 % (0-10); NRBC Flagged by Analyzer 0 % (0-5); Neutrophil # 3.37 X10^3/uL (2.7-7.7); Neutrophil % 65.5 % (47-70); Platelet Count 126 K/mm3 (150-450); RBC Distribution Width CV 13.1 % (11.6-14.6); RBC Distribution Width SD 48.7 fl (35.1-43.9); Red Blood Count 2.02 M/mm3 (4.2-5.4); White Blood Count 5.1 K/mm3 (4.4-11.0)
[2022-11-29 07:11] LABS: Anion Gap 3 (5-15); BUN 15 mg/dL (7-18); BUN/Creat Ratio 19.1 RATIO (10-20); Calcium,Total 8.6 mg/dL (8.5-10.1); Chloride 108 mmol/L (98-107); Creatinine, Serum 0.78 mg/dL (0.55-1.02); EST Glomerular Filtration Rate 76 mL/min (>60); Est Glom Filt Rate - Afr Amer 92 mL/min (>60); Estimated Creatinine Clearance 46.11 ml/min; Glucose 94 mg/dL (74-106); Potassium 4.8 mmol/L (3.5-5.1); Sodium Level 141 mmol/L (136-145)
--- NOTE | 2022-11-29 07:26 | PN.HOSP_ITS ---
Reason for Visit Reason for Visit: Diagnoses Acute posthemorrhagic anemia (11/27/22) Fracture of unspecified part of neck of unspecified femur, initial encounter for closed fracture (11/27/22) Encounter for other preprocedural examination (11/27/22) Presence of functional implant, unspecified (11/27/22) Subjective Subjective Feeling fine, reports she knows her numbers are low and she is somewhat disappointed she can't leave but she's walking well and no dizziness or lightheadedness or other complaints Objective Data Objective Data Vital Signs: Vital Signs Temp Pulse Resp BP Pulse Ox O2 Del Method O2 Flow Rate 98.8 F 94 16 110/54 L 96 Room Air 4 11/29/22 04:13 11/29/22 04:13 11/29/22 04:13 11/29/22 04:13 11/29/22 04:13 11/29/22 04:13 11/27/22 13:15 Oxygen Flow Rate (L/min) 4 Oxygen Delivery Method Room Air Weight: 62 kg Body Mass Index (BMI) 29.5 Intake & Output: Intake and Output for Last 24 Hours 11/27/22 11/28/22 11/29/22 23:59 23:59 23:59 Intake Total 404.25 / 604.25 215 / 2150 Balance 404.25 / 604.25 2149 / 2149 Lab / Micro Data 11/29/22 05:15 11/29/22 05:15 Labs: Laboratory Results - last 24 hr 11/28/22 11:26: WBC 7.9, RBC 2.34 L, Hgb 8.1 L, Hct 23.5 L, MCV 100.4 H, MCH 34.6 H, MCHC 34.5, RDW Std Deviation 45.7 H, RDW Coeff of Oralia 12.8, Plt Count 155, MPV 8.6 11/29/22 05:15: WBC 5.1, RBC 2.02 L, Hgb 6.9 L, Hct 21.0 L, MCV 104.0 H, MCH 34. 2 H, MCHC 32.9, RDW Std Deviation 48.7 H, RDW Coeff of Oralia 13.1, Plt Count 126 L , MPV 8.9, Immature Gran % (Auto) 0.400, Neut % (Auto) 65.5, Lymph % (Auto) 22.0, [place] % (Auto) 11.1 H, Eos % (Auto) 1.0, Baso % (Auto) 0.0, Absolute Neuts (auto) 3.4, Absolute Lymphs (auto) 1.13, Nucleated RBC % 0, Sodium 141, Potassium 4.8, Chloride 108 H, Carbon Dioxide 30.0, Anion Gap 3 L, BUN 15, Creatinine 0.78, Estim Creat Clear Calc 46.11, Est GFR (MDRD) Af Amer 92, Est GFR (MDRD) Non-Af 76, BUN/Creatinine Ratio 19.1, Glucose 94, Calcium 8.6 Radiography Diagnostic Testing: Radiology Impression Hip X-Ray 11/27/22 10:45 IMPRESSION: Intraoperative digital documentation views as described. Electronically Signed: Yohan Lamb MD at 9:35 EDT , Physical Exam Narrative General: Alert, oriented, no apparent distress HEENT: Atraumatic, normocephalic Eyes: Anicteric, normal conjunctiva, extraocular movements grossly intact Neck: Supple Respiratory: Clear to auscultation bilaterally, normal respiratory effort Cardiovascular: Irregularly irregular, no tachycardia GI: Soft, nontender, nondistended Extremities: No edema Musculoskeletal: Moving all extremities Neuro: No overt focal neurological deficits Skin: No rashes appreciated, slight drainage from lower portion of dressing on right hip but is not bleeding through it is localized Psych: Cooperative Assessment & Plan Assessment/Plan (1) Hip fracture requiring operative repair: PLAN: Plan Patient is a 77-year-old female with history of colon cancer s/p hemicolectomy in 2020, brain mets with hemorrhage while on AC (now stable), A-fib not on AC, hypertension, hyperlipidemia and hip fracture in 05/2022 s/p right femur nail placement who presented to [facility] on 11/27/2022 for a planned revision of her right femur nail placement. #Surgical revision of right femur fracture, physical debility S/p surgical revision on 11/[address] Canas. Patient tolerated procedure well. Patient initially suffered fall with hip fracture back in May of this year. Had surgery at that time and completed outpatient physical therapy. However, there apparently were issues with the placement of the intramedullary nail, and it needed to be surgically revised. ?PT/OT/case management consulted. Aspirin 81 mg twice daily for DVT prophylaxis per orthopedics. Pain control with Tylenol and oxycodone as needed. -11/28: Management per primary -11/29: Doing well, mobile, continue PT OT, home soon #Postop anemia -Patient with soft BP, adjusted home medications, patient completely asymptomatic and was able to get up and walk around without difficulty -Suspect this is all postop related, patient denies any other blood loss, CBC repeating this afternoon will trend again tomorrow. Transfuse if hemoglobin less than 7 -11/29: Hemoglobin 7.5 postop and increased to 8 point 1 in the afternoon, this a.m. 6.9 however due to patient's borderline blood pressure yesterday she was given a bolus of fluids and all 3 cell lines are lower today so I suspect this is in part delusional however given is less than 7 we will order 1 unit packed red blood cells. RDW is elevated to suspect her body is beginning to compensate and make red blood cells. No overt further bleeding or hemorrhage and again suspect that this is largely dilutional and is likely stable from yesterday a.m. but believe patient would benefit from 1 unit of packed red blood cells. Continue iron supplementation #Paroxysmal A-fib - Follows outpatient with cardiology. Not an anticoagulation candidate given her history of brain bleed on anticoagulation. Continue home Lopressor and isosorbide mononitrate. -11/29: Continue present management, Toprol decreased with holding parameters due to borderline BP yesterday #Hyperlipidemia ? Continue home pravastatin. DVT prophylaxis: Aspirin twice daily CODE STATUS: Full code, unverified Expected disposition: Home, 1 to 2 days Total clinical time spent by myself addressing the patient's medical issues, reviewing all the data, and collaborating with patient's care team: 36 minutes. Charges/Coding Visit Charges Inpatient E&M: 89999 Subs Hosp L2
[2022-11-29] MEDS: Pantoprazole Sodium 40 MG Tablet PO ×2 (10:12→21:36)
--- NOTE | 2022-11-29 10:39 | PCM.PN.ORT ---
Subjective Subjective Patient seen and examined. She denies any new complaints. Continues to deny any lightheadedness or dizziness. Pain controlled with oral Tylenol and ice. She denies any fevers, chills, nausea vomiting, chest pain or shortness of breath. She states she walked the halls with therapy yesterday and today. She states her hip feels excellent. Objective Data Objective Data Vital Signs: Vital Signs Temp Pulse Resp BP Pulse Ox O2 Del Method O2 Flow Rate 97.9 F 97 16 88/50 L 98 Room Air 4 11/29/22 10:08 11/29/22 10:08 11/29/22 10:08 11/29/22 10:08 11/29/22 10:08 11/29/22 10:08 11/27/22 13:15 Oxygen Flow Rate (L/min) 4 Oxygen Delivery Method Room Air Weight: 136 lb 10.986 oz Body Mass Index (BMI) 29.5 Intake & Output: Intake and Output for Last 24 Hours 11/27/22 11/28/22 11/29/22 23:59 23:59 23:59 Intake Total 404.25 / 604.25 2150 / 2150 Balance 404.25 / 604.25 2150 / 2150 Lab / Micro Data 11/29/22 05:15 11/29/22 05:15 Labs: Laboratory Results - last 24 hr 11/28/22 11:26: WBC 7.9, RBC 2.34 L, Hgb 8.1 L, Hct 23.5 L, MCV 100.4 H, MCH 34.6 H, MCHC 34.5, RDW Std Deviation 45.7 H, RDW Coeff of Oralia 12.8, Plt Count 155, MPV 8.6 11/29/22 05:15: WBC 5.1, RBC 2.02 L, Hgb 6.9 L, Hct 21.0 L, MCV 104.0 H, MCH 34.2 H, MCHC 32.9, RDW Std Deviation 48.7 H, RDW Coeff of Oralia 13.1, Plt Count 126 L, MPV 8.9, Immature Gran % (Auto) 0.400, Neut % (Auto) 65.5, Lymph % (Auto) 22.0, [place] % (Auto) 11.1 H, Eos % (Auto) 1.0, Baso % (Auto) 0.0, Absolute Neuts (auto) 3.4, Absolute Lymphs (auto) 1.13, Nucleated RBC % 0, Sodium 141, Potassium 4.8, Chloride 108 H, Carbon Dioxide 30.0, Anion Gap 3 L, BUN 15, Creatinine 0.78, Estim Creat Clear Calc 46.11, Est GFR (MDRD) Af Amer 92, Est GFR (MDRD) Non-Af 76, BUN/Creatinine Ratio 19.1, Glucose 94, Calcium 8.6 11/29/22 08:40: Blood Type O POSITIVE, Antibody Screen NEGATIVE, Crossmatch See Detail Physical Exam Narrative General - A&Ox3, NAD. Hypotensive Right lower extremity -incisional dressing shows spotted dried sanguinous drainage. SILT Sural, Saphenous, SPN, DPN, Tibial N. distributions. DP, PT 2+. BCR. DF, PF, EHL 5/5. No calf TTP. Assessment & Plan Assessment/Plan (1) Retained orthopedic hardware: PLAN: POD#2 s/p revision right hip cephalomedullary nail -Hemoglobin 6.9 this morning. Appears to have dilutional component secondary to fluid bolus yesterday. Minimal drainage from the operative site. No evidence of expanding hematoma. 1 unit packed red blood cells ordered by hospitalist. Agree with transfusion especially in the setting of soft BP. - Pain control - Medicine following for medical management - PT/OT -weightbearing as tolerated right lower extremity - DVT PPX -restart aspirin, SCDs, SIMIN hose, early mobilization - Case management - D/C planning Anticipate discharge following stabilization of hemoglobin and hypotension (2) Acute blood loss anemia:
[2022-11-29] MEDS: Ferrous Sulfate 325 MG Tablet PO ×2 (12:14→16:54)
--- NOTE | 2022-11-29 15:43 | EKG12_ITS ---
Test Reason : Blood Pressure : / mmHG Vent. Rate : 109 BPM Atrial Rate : 000 BPM P-R Int : 000 ms QRS Dur : 094 ms QT Int : 348 ms P-R-T Axes : 000 049 -01 degrees QTc Int : 468 ms Atrial fibrillation with rapid ventricular response Incomplete right bundle branch block Nonspecific ST abnormality Abnormal ECG When compared with ECG of 19-NOV-2022 08:43, Nonspecific T wave abnormality, worse in Inferior leads Confirmed by CECIL JULES, MARGI ([id number]), newspaper editor managing KINAZ GORDILLO ([id number]) on 01/13/2023 1:49:41 PM Referred By: Rancho Canas Confirmed By:MARGI JACOB MD
[2022-11-29 16:03] LABS: Hematocrit 26.5 % (37-47); Hemoglobin 8.8 g/dL (12.0-15.0)
--- NOTE | 2022-11-29 16:27 | PCM.HOSP.N ---
Hospitalist Note Called regarding pt being aware of her afib. Evaluated pt who said she was laying in bed and she became aware of her afib and like it was going faster than usually and was somewhat heavy but was already starting to feel better. She got up in the chair and was already starting to feel better by time of exam and no SOB or other complaints. EKG obtained and had HR of 109, she usually is on metoprolol 50mg BID but it was decreased d/t BP. Will give another 12.5 metoprolol x1 and increase to 25mg BID. EKG does not appear to have ischemic changes. If any worsening or other symptoms or other episodes will workup further
--- NOTE | 2022-11-29 16:35 | NURSING ---
Pt c/o chest heaviness, Apical irreg, has afib. Also C/o MATHUR. Dr. Ferrera up here to see pt recently and aware of EKG results that were ordered earlier today. Vitals taken, Dr. Ferrera also aware of the results. Wants pt on Telemonitor and going to start her on lopressor x1.
[2022-11-29] MEDS: Metoprolol Tartrate 25 MG Tablet 12.5 MG PO (16:55)
--- NOTE | 2022-11-29 16:59 | NURSING ---
telemonitor on pt at this time
[2022-11-29] MEDS: Lactated Ringers 250 ML 999 ML IV (18:52)
[2022-11-29] MEDS: Metoprolol Tartrate 25 MG Tablet PO (21:36)
[2022-11-29] MEDS: Pravastatin 40 MG Tablet PO (21:36)
[2022-11-29] MEDS: Aspirin 81 MG TAB.CHEW PO (21:37)
[2022-11-30] MEDS: Acetaminophen 325 MG Tablet 650 MG PO ×2 (00:10→11:28)
[2022-11-30 03:52] VITALS: BP 114/65; PULSE 102; RESP 16; TEMP 36.6; O2SAT 97
[2022-11-30 06:46] LABS: Absolute Lymphocyte Count 1.22 X10^3/uL (0.83-4.51); Absolute Neutrophil Count 3.2 X10^3/uL (2.0-7.7); Basophil# 0.01 X10^3/uL; Basophil% 0.2 % (0-1); Eosinophil# 0.22 X10^3/uL; Eosinophils% 4.2 % (0-5); Hematocrit 26.3 % (37-47); Hemoglobin 8.4 g/dL (12.0-15.0); Lymphocyte # 1.22 X10^3/ul (0.83-4.51); Lymphocyte % 23.2 % (19-41); Mean Corp Hgb Conc 31.9 g/dL (32-36); Mean Corpuscular Hgb 33.2 pg (27.0-32.0); Mean Platelet Vol. 9.1 fl (6.2-12.0); Monocyte# 0.63 X10^3/uL; NRBC Flagged by Analyzer 0 % (0-5); Neutrophil # 3.15 X10^3/uL (2.7-7.7); Platelet Count 132 K/mm3 (150-450); RBC Distribution Width CV 14.2 % (11.6-14.6); RBC Distribution Width SD 53.4 fl (35.1-43.9); Red Blood Count 2.53 M/mm3 (4.2-5.4); White Blood Count 5.3 K/mm3 (4.4-11.0)
[2022-11-30 07:08] LABS: Anion Gap 3 (5-15); BUN 13 mg/dL (7-18); BUN/Creat Ratio 20.7 RATIO (10-20); Calcium,Total 8.1 mg/dL (8.5-10.1); Chloride 108 mmol/L (98-107); Creatinine, Serum 0.63 mg/dL (0.55-1.02); EST Glomerular Filtration Rate 98 mL/min (>60); Est Glom Filt Rate - Afr Amer 118 mL/min (>60); Estimated Creatinine Clearance 46.11 ml/min; Glucose 86 mg/dL (74-106); Potassium 4.1 mmol/L (3.5-5.1); Sodium Level 140 mmol/L (136-145)
--- NOTE | 2022-11-30 08:13 | PN.HOSP_ITS ---
Reason for Visit Reason for Visit: Diagnoses Acute posthemorrhagic anemia (11/27/22) Fracture of unspecified part of neck of unspecified femur, initial encounter for closed fracture (11/27/22) Encounter for other preprocedural examination (11/27/22) Presence of functional implant, unspecified (11/27/22) Subjective Subjective Feeling the same, no chest complaints, no chest pain or pressure Objective Data Objective Data Vital Signs: Vital Signs Temp Pulse Resp BP Pulse Ox O2 Del Method O2 Flow Rate 98 F 102 H 16 114/65 97 Room Air 4 11/30/22 03:52 11/30/22 03:52 11/30/22 03:52 11/30/22 03:52 11/30/22 03:52 11/30/22 03:52 11/27/22 13:15 Oxygen Flow Rate (L/min) 4 Oxygen Delivery Method Room Air Weight: 62 kg Body Mass Index (BMI) 29.5 Intake & Output: Intake and Output for Last 24 Hours 11/28/22 11/29/22 11/30/22 23:59 23:59 23:59 Intake Total 2150 / 2150 1110 / 1310 400 / 400 Balance 2150 / 2150 1110 / 1310 400 / 400 Lab / Micro Data 11/30/22 05:25 11/30/22 05:25 Labs: Laboratory Results - last 24 hr 11/29/22 08:40: Blood Type O POSITIVE, Antibody Screen NEGATIVE, Crossmatch See Detail 11/29/22 15:47: Hgb 8.8 L, Hct 26.5 L 11/30/22 05:25: WBC 5.3, RBC 2.53 L, Hgb 8.4 L, Hct 26.3 L, MCV 104.0 H, MCH 33.2 H, MCHC 31.9 L, RDW Std Deviation 53.4 H, RDW Coeff of Oralia 14.2, Plt Count 132 L, MPV 9.1, Immature Gran % (Auto) 0.400, Neut % (Auto) 60.0, Lymph % (Auto) 23.2, [place] % (Auto) 12.0 H, Eos % (Auto) 4.2, Baso % (Auto) 0.2, Absolute Neuts (auto) 3.2, Absolute Lymphs (auto) 1.22, Nucleated RBC % 0, Sodium 140, Potas sium 4.1, Chloride 108 H, Carbon Dioxide 29.0, Anion Gap 3 L, BUN 13, Creatinine 0.63, Estim Creat Clear Calc 46.11, Est GFR (MDRD) Af Amer 118, Est GFR (MDRD) Non-Af 98, BUN/Creatinine Ratio 20.7 H, Glucose 86, Calcium 8.1 L Physical Exam Narrative General: Alert, oriented, no apparent distress HEENT: Atraumatic, normocephalic Eyes: Anicteric, normal conjunctiva, extraocular movements grossly intact Neck: Supple Respiratory: Clear to auscultation bilaterally, normal respiratory effort Cardiovascular: Irregularly irregular GI: Soft, nontender, nondistended Extremities: No edema Musculoskeletal: Moving all extremities Neuro: No overt focal neurological deficits Skin: No rashes appreciated Psych: Cooperative Assessment & Plan Assessment/Plan (1) Hip fracture requiring operative repair: PLAN: Plan Patient is a 77-year-old female with history of colon cancer s/p hemicolectomy in 2020, brain mets with hemorrhage while on AC (now stable), A-fib not on AC, hypertension, hyperlipidemia and hip fracture in 05/2022 s/p right femur nail placement who presented to [facility] on 11/27/2022 for a planned revision of her right femur nail placement. #Surgical revision of right femur fracture, physical debility S/p surgical revision on 11/[address] Canas. Patient tolerated procedure well. Patient initially suffered fall with hip fracture back in May of this year. Had surgery at that time and completed outpatient physical therapy. However, there apparently were issues with the placement of the intramedullary nail, and it needed to be surgically revised. ?PT/OT/case management consulted. Aspirin 81 mg twice daily for DVT prophylaxis per orthopedics. Pain control with Tylenol and oxycodone as needed. -11/28: Management per primary -11/29: Doing well, mobile, continue PT OT, home soon -11/30: Hopefully home today if heart rate is well on home medication #Postop anemia -Patient with soft BP, adjusted home medications, patient completely asymptomatic and was able to get up and walk around without difficulty -Suspect this is all postop related, patient denies any other blood loss, CBC re peating this afternoon will trend again tomorrow. Transfuse if hemoglobin less than 7 -11/29: Hemoglobin 7.5 postop and increased to 8 point 1 in the afternoon, this a.m. 6.9 however due to patient's borderline blood pressure yesterday she was given a bolus of fluids and all 3 cell lines are lower today so I suspect this is in part delusional however given is less than 7 we will order 1 unit packed red blood cells. RDW is elevated to suspect her body is beginning to compensate and make red blood cells. No overt further bleeding or hemorrhage and again suspect that this is largely dilutional and is likely stable from yesterday a.m. but believe patient would benefit from 1 unit of packed red blood cells. Continue iron supplementation -11/30: Hemoglobin improved after red blood cell transfusion and has been stable since yesterday, would recommend repeat CBC in 5 days through outpatient office to verify this is appropriately rising #Paroxysmal A-fib - Follows outpatient with cardiology. Not an anticoagulation candidate given her history of brain bleed on anticoagulation. Continue home Lopressor and isosorbide mononitrate. -11/29: Continue present management, Toprol decreased with holding parameters due to borderline BP yesterday -11/30: Heart rate with intermittent accelerations yesterday causing patient to notice her A-fib, she had been on lower doses of her metoprolol due to low blood pressure after surgery to this has been very increased, would advise following closely with PCP on discharge. She did well yesterday on the increased dose of beta-shikha but at 9 AM had similar accelerations, read increased to her home dose we will give another small bolus of fluid, if patient stable and no further problems this afternoon can likely go home with close outpatient follow-up. Discussed with primary. #Hyperlipidemia ? Continue home pravastatin. DVT prophylaxis: Aspirin twice daily CODE STATUS: Full code, unverified Expected disposition: Home, 1 to 2 days Total clinical time spent by myself addressing the patient's medical issues, reviewing all the data, and collaborating with patient's care team: 36 minutes. Charges/Coding Visit Charges Inpatient E&M: 47143 Subs Hosp L2
[2022-11-30 08:55] VITALS: BP 118/89; PULSE 120; RESP 16; TEMP 36.9; O2SAT 98
[2022-11-30] MEDS: Pantoprazole Sodium 40 MG Tablet PO (09:02)
[2022-11-30] MEDS: Aspirin 81 MG TAB.CHEW PO (09:04)
[2022-11-30 09:05] VITALS: PULSE 120
[2022-11-30] MEDS: Metoprolol Tartrate 25 MG Tablet PO ×2 (09:05→11:19)
--- NOTE | 2022-11-30 10:04 | PCM.PN.ORT ---
Subjective Subjective Patient seen and examined. Denies any new complaints. States she feels more energy with the 1 unit packed red blood cells yesterday. Denies significant pain. Taking Tylenol. Denies fevers, chills, nausea vomiting, chest pain or shortness of breath. Denies any lightheadedness or dizziness. Objective Data Objective Data Vital Signs: Vital Signs Temp Pulse Resp BP Pulse Ox O2 Del Method O2 Flow Rate 98.4 F 120 H 16 118/89 H 98 Room Air 4 11/30/22 08:55 11/30/22 09:05 11/30/22 08:55 11/30/22 08:55 11/30/22 08:55 11/30/22 08:55 11/27/22 13:15 Oxygen Flow Rate (L/min) 4 Oxygen Delivery Method Room Air Weight: 136 lb 10.986 oz Body Mass Index (BMI) 29.5 Intake & Output: Intake and Output for Last 24 Hours 11/28/22 11/29/22 11/30/22 23:59 23:59 23:59 Intake Total 2150 / 2150 1110 / 1310 400 / 400 Balance 2150 / 2150 1110 / 1310 400 / 400 Lab / Micro Data 11/30/22 05:25 11/30/22 05:25 Labs: Laboratory Results - last 24 hr 11/29/22 08:40: Blood Type O POSITIVE, Antibody Screen NEGATIVE, Crossmatch See Detail 11/29/22 15:47: Hgb 8.8 L, Hct 26.5 L 11/30/22 05:25: WBC 5.3, RBC 2.53 L, Hgb 8.4 L, Hct 26.3 L, MCV 104.0 H, MCH 33.2 H, MCHC 31.9 L, RDW Std Deviation 53.4 H, RDW Coeff of Oralia 14.2, Plt Count 132 L, MPV 9.1, Immature Gran % (Auto) 0.400, Neut % (Auto) 60.0, Lymph % (Auto) 23.2, [place] % (Auto) 12.0 H, Eos % (Auto) 4.2, Baso % (Auto) 0.2, Absolute Neuts (auto) 3.2, Absolute Lymphs (auto) 1.22, Nucleated RBC % 0, Sodium 140, Potassium 4.1, Chloride 108 H, Carbon Dioxide 29.0, Anion Gap 3 L, BUN 13, Creatinine 0.63, Estim Creat Clear Calc 46.11, Est GFR (MDRD) Af Amer 118, Est GFR (MDRD) Non-Af 98, BUN/Creatinine Ratio 20.7 H, Glucose 86, Calcium 8.1 L Physical Exam Narrative General - A&Ox3, NAD. Hypotension improved, tachycardic in the 120s Right lower extremity -incisional dressing stable dried sanguinous drainage. SILT Sural, Saphenous, SPN, DPN, Tibial N. distributions. DP, PT 2+. BCR. DF, PF, EHL 5/5. No calf TTP. Assessment & Plan Assessment/Plan (1) Retained orthopedic hardware: PLAN: POD#3 s/p revision right hip cephalomedullary nail -Hemoglobin improved after 1 unit packed red blood cell yesterday. Hemoglobin stable on recheck H&H this morning. Improved BP, tachycardia is noted consistent with A-fib RVR. Defer to primary for management of hypotension/tachycardia. Once stable from medical standpoint, discharge home is anticipated. - Pain control - Medicine following for medical management - PT/OT -weightbearing as tolerated right lower extremity - DVT PPX -restart aspirin, SCDs, SIMIN hose, early mobilization - Case management - D/C planning (2) Acute blood loss anemia:
[2022-11-30 11:19] VITALS: PULSE 91
[2022-11-30] MEDS: Ferrous Sulfate 325 MG Tablet PO (11:19)
[2022-11-30] MEDS: 0.9% Saline Lock 10 ML Syringe IV (11:21)
--- NOTE | 2022-11-30 12:18 | DS.PCM_ITS ---
Providers Date of Admission: 11/27/22 Primary Care Physician: Dr. Cassius Monaco MD Consultations 11/27/22 13:00 Consult: Hospitalist Routine Consulting Provider: Jose Manuel Jang Reason for Consult: Post op R hip medical management EMERGENT Consult: No MD Notified: Yes Date Notified: 11/27/22 Time Notified: 13:02 Method of Notification: via spok Reason For Visit: REVISION RIGHT FEMUR CEPHALOMEDULLA Diagnosis Discharge Diagnosis (1) Hip fracture requiring operative repair: Status: Acute Code(s): S72.009A - Fracture of unspecified part of neck of unspecified femur, initial encounter for closed fracture Medications at Discharge Home Medications ascorbic acid (vitamin C) 500 mg tablet (Vitamin C) 500 mg PO DAILY supplement 05/20/22 calcium carbonate 200 mg calcium (500 mg) chewable tablet 500 mg PO TIDCM Supplement 05/20/22 furosemide 40 mg tablet 40 mg PO DAILY Fluid retention 05/20/22 acetaminophen 500 mg tablet 1,000 mg (2 x 500 mg) PO Q8 PRN pain or fever #1 TAB 06/10/22 cholecalciferol (vitamin D3) 25 mcg (1,000 unit) tablet 25 mcg PO DAILYCM #30 tabs 06/10/22 meclizine 12.5 mg tablet 12.5 mg PO TID PRN PRN Vertigo #30 tabs 06/10/22 metoprolol tartrate 50 mg tablet 50 mg PO BID #60 tabs 06/10/22 pantoprazole 40 mg tablet,delayed release 40 mg PO BID GERD #60 tabs 06/10/22 potassium chloride 20 mEq tablet,extended release 20 meq PO DAILY supplement #30 tabs 06/10/22 pravastatin 40 mg tablet 40 mg PO QHS Cholestrol #90 tabs 10/06/22 aspirin 81 mg chewable tablet 81 mg PO BIDCM 28 days #56 tabs 11/30/22 Hospital Course Summary of Care Provided Minutes Spent on Discharge: 20 Hospital Course: Patient underwent uncomplicated right revision supplementary nailing of the right femur due to asymptomatic lag screw which was exchanged for shorter lag screw. On 11/27/2022. She was admitted postoperatively. She did well with physical and occupational therapies and is able to mobilize well. An internal medicine consult was placed for medical management during her inpatient stay. Her postoperative course was complicated by postoperative acute blood loss anemia. She received 1 unit packed red blood cells. She also went into A-fib RVR which responded well to metoprolol. She was able to be safely discharged to home on postoperative day #3. Physical Exam Narrative General - A&Ox3, NAD. Hypotension improved, tachycardic in the 120s Right lower extremity -incisional dressing stable dried sanguinous drainage. SILT Sural, Saphenous, SPN, DPN, Tibial N. distributions. DP, PT 2+. BCR. DF, PF, EHL 5/5. No calf TTP. Weight / BMI Weight Weight: 136 lb 10.986 oz Body Mass Index (BMI) 29.5 ABG / Lab / Microbiology Data 11/30/22 05:25 11/30/22 05:25 Laboratory: Laboratory Results - last 24 hr 11/29/22 08:40: Crossmatch See Detail 11/29/22 15:47: Hgb 8.8 L, Hct 26.5 L 11/30/22 05:25: WBC 5.3, RBC 2.53 L, Hgb 8.4 L, Hct 26.3 L, MCV 104.0 H, MCH 33.2 H, MCHC 31.9 L, RDW Std Deviation 53.4 H, RDW Coeff of Oralia 14.2, Plt Count 132 L, MPV 9.1, Immature Gran % (Auto) 0.400, Neut % (Auto) 60.0, Lymph % (Auto) 23.2, Merrick % (Auto) 12.0 H, Eos % (Auto) 4.2, Baso % (Auto) 0.2, Absolute Neuts (auto) 3.2, Absolute Lymphs (auto) 1.22, Nucleated RBC % 0, Sodium 140, Potassi um 4.1, Chloride 108 H, Carbon Dioxide 29.0, Anion Gap 3 L, BUN 13, Creatinine 0.63, Estim Creat Clear Calc 46.11, Est GFR (MDRD) Af Amer 118, Est GFR (MDRD) Non-Af 98, BUN/Creatinine Ratio 20.7 H, Glucose 86, Calcium 8.1 L Meaningful Use Info Meaningful Use Diagnoses (Choose all that apply): None applicable Discharge Plan Admission Admit Date/Time: 11/27/22 16:58 Primary Reason for Your Visit: Right hip revision nail Attending Provider: Rancho Canas Primary Care Provider: Cassius Monaco Chi Consulting Providers: Amanda Ferrera Instructions Additional Instructions / Restrictions: Follow preprinted instructions from your surgeons office Recheck CBC in 2 days F/u PCP within 3-5 days from discharge Discharge Orders/Prescriptions Prescriptions: New aspirin 81 mg Tablet,Chewable 81 mg PO BIDCM 28 Days Qty: 56 0RF Continued ascorbic acid (vitamin C) [Vitamin C] 500 mg Tablet 500 mg PO DAILY furosemide 40 mg tablet 40 mg PO DAILY calcium carbonate 200 mg calcium (500 mg) tablet,chewable 500 mg PO TIDCM metoprolol tartrate 50 mg Tablet 50 mg PO BID Qty: 60 0RF cholecalciferol (vitamin D3) 25 mcg (1,000 unit) Tablet 25 mcg PO DAILYCM Qty: 30 0RF meclizine 12.5 mg Tablet 12.5 mg PO TID PRN PRN (Reason: Vertigo) Qty: 30 0RF acetaminophen 500 mg tablet 1,000 mg PO Q8 PRN (Reason: pain or fever) Qty: 1 0RF pantoprazole 40 mg tablet,delayed release (DR/EC) 40 mg PO BID Qty: 60 0RF potassium chloride 20 mEq tablet extended release 20 meq PO DAILY Qty: 30 3RF pravastatin 40 mg tablet 40 mg PO QHS Qty: 90 3RF Discontinued isosorbide mononitrate 30 mg tablet extended release 24 hr 30 mg PO DAILY Other Ambulatory Orders: CBC W/Diff, Automated (Routine) Timeframe: 2 Days Facility: [facility] - Location: Laboratory Ordered By: Dr. Rancho Canas Referrals / Follow Up: Rancho Canas DO [Med Staff - Active Staff] - 12/12/22 Cassius Monaco Chi, MD [Primary Care Provider] - Disposition Disposition (needs filled in before D/C Order can be placed): Home, Self Care
[2022-11-30 14:30] VITALS: BP 120/55; PULSE 71; RESP 16; TEMP 36.8; O2SAT 94
== END 2022-11-30 16:35 | disposition home or self-care (01) | DRG 560 ==
LOC: SDC 14:53 → MS3 14:53
PROVIDERS: Internal Medicine; Admitting Provider Student in an Organized Health Care Education/Training Program; PCP Family Medicine Geriatric Medicine; Referring Provider Student in an Organized Health Care Education/Training Program; Visit Provider Student in an Organized Health Care Education/Training Program
PROC: 0YW Anatomical Regions, Lower Extremities, Revision (ICD-10-PCS; CPT 27245; principal; 2022-11-27 11:15)
DX: Z47.32 Aftercare following explantation of hip joint prosthesis (principal); D62 Acute posthemorrhagic anemia; T84.195A Other mechanical complication of internal fixation device of left femur, initial encounter; I48.0 Paroxysmal atrial fibrillation; I10 Essential (primary) hypertension; E78.5 Hyperlipidemia, unspecified; E66.3 Overweight; S72.141D Displaced intertrochanteric fracture of right femur, subsequent encounter for closed fracture with routine healing; Z85.038 Personal history of other malignant neoplasm of large intestine; Z68.29 Body mass index [BMI] 29.0-29.9, adult; Y82.9 Unspecified medical devices associated with adverse incidents
CPT/HCPCS: 36415; 71046; 73502; 73552; 76000; 80048; 85014; 85018; 85025; 85027; 86850; 86900; 86901; 86920; 86922; 93005; 94668; 97116; 97162; 97166; 97530; 99252; C1713; J7050; J7120; P9016; A4216; G0463; J2405

== ENCOUNTER → 2022-12-09 | Outpatient (CLI) | payer OTHER, MEDICARE, SELFPAY ==
[2022-12-09 13:10] LABS: Absolute Lymphocyte Count 1.02 X10^3/uL (0.83-4.51); Absolute Neutrophil Count 4.1 X10^3/uL (2.0-7.7); Basophil# 0.02 X10^3/uL; Basophil% 0.3 % (0-1); Eosinophil# 0.17 X10^3/uL; Eosinophils% 2.9 % (0-5); Hematocrit 28.6 % (37-47); Hemoglobin 9.3 g/dL (12.0-15.0); Lymphocyte # 1.02 X10^3/ul (0.83-4.51); Lymphocyte % 17.4 % (19-41); Mean Corp Hgb Conc 32.5 g/dL (32-36); Mean Corpuscular Hgb 34.1 pg (27.0-32.0); Mean Corpuscular Volume 104.8 fL (81-99); Mean Platelet Vol. 7.9 fl (6.2-12.0); Monocyte# 0.55 X10^3/uL; Monocyte% 9.4 % (0-10); NRBC Flagged by Analyzer 0 % (0-5); Neutrophil # 4.08 X10^3/uL (2.7-7.7); Neutrophil % 69.7 % (47-70); Platelet Count 256 K/mm3 (150-450); RBC Distribution Width CV 14.6 % (11.6-14.6); RBC Distribution Width SD 54.5 fl (35.1-43.9); Red Blood Count 2.73 M/mm3 (4.2-5.4); White Blood Count 5.9 K/mm3 (4.4-11.0)
== END | disposition home or self-care (01) ==
LOC: LAB 12:57
PROVIDERS: PCP Family Medicine Geriatric Medicine; Referring Provider Student in an Organized Health Care Education/Training Program; Visit Provider Student in an Organized Health Care Education/Training Program
DX: D62 Acute posthemorrhagic anemia (principal)
CPT/HCPCS: 36415; 85025

== ENCOUNTER 2023-04-02 13:30 | Outpatient (RCR) | payer OTHER, MEDICARE, SELFPAY ==
--- NOTE | 2022-12-04 14:18 | HP.PTEVAL_ITS ---
Patient's Visit Information Visit Information Visit Information: MARGARETTE WISE is a 77 year old F referred to Physical Therapy by Dr. Rancho Canas, DO with a diagnosis of S/P R HIP NAILING REVISION 11/27/[address] CANAS. Date of Evaluation: 12/04/22 Physical Therapist: Zamzam Causey, PT, Cert MDT Visit Plan Frequency: 2-3x /Week Duration: 4-6 Weeks Plan: GAIT TRAINING WBAT R LE STARTING WITH FWW UNTIL CLEARED BY DR. CANAS TO TRY TO PROGRESS TO CANE. ARLEEN LE ROM, STRETCHING AND STRENGTHENING TO HELP MEET SET GOALS. Subjective Subjective: DX'S: S/P R HIP NAILING REVISION 11/27/[address] CANAS DISPLACED INTERTROCHANTERIC FX OF R FEMUR. PAIN DUE TO INTERNAL ORTHOPEDIC PROSTHETIC DEVICES, IMPLANTS AND GRAFTS. Work/Leisure: CONTRACTED TO [employer] TO CLEAN - OFF WORK FOR INJURY THAT HAPPENED IN MAY 2022. WORKED UP UNTIL TIME OF INJURY. Present symptoms: RIGHT GROIN PAIN WITH WALKING Present since: MAY 12 2022 Pain Scale: WORST 5/10, LEAST 0/10 Currently: 0/10 Is it getting better, worse or staying the same: GETTING BETTER Commenced as a result of: FALL Symptoms at onset: R HIP PAIN Worse: WALKING. CAN SOMETIMES TAKE SOME STEPS WITH THE WALKER WITHOUT PAIN. Better: PAIN USUALLY STOPS RIGHT AWAY WHEN STOPS WALKING. Disturbed sleep: NO Previous history/Previous treatment: FALL MAY 12 2022. FIRST SX WITH HARDWARE MAY 14 2022 FOLLOWED BY PHYSICAL THERAPY IN THE HOSPITAL X 30 DAYS THEN IN HOME PT X ~ 6 WKS AT A FRIENDS HOUSE. WENT HOME AND HAD MORE HOME PT FOR ANOTHER FEW WEEKS THEN CAME TO OUT PATIENT PT HERE AT [facility] UNTIL A WK BEFORE THIS LAST SURGERY. PATIENT REPORTS PT REALLY HAS DONE NOTHING BUT IRRITATE HER HIP. Treatment this episode: PATIENT REPORTS ANEMIA DUE TO BLOOD LOSS AND AFIB AFTER HIP SX 11/27/22 THEREFORE ADMIT TO [facility] X APPROX 4 DAYS WITH D/C 12/02/22. PATIENT DENIES ANY HISTORY OF HIP INFECTION. STATES THE FRACTURE HEALED WELL BUT THE SCREW MOVED AND MAJOR SCAR TISSUE DEVELPED ACCORDING TO WHAT DR. CANAS TOLD HER. Gait: GETTING AROUND WITH FWW WBAT R LE. Bowel or Bladder Dysfunction: NO PMH/Recent major surgery: PMH IN [facility] EMR REVIEWED WITH PATIENT BY THIS PT. ARLEEN TKR'S. OTHER: PATIENT REPORTS DR. CANAS TOLD HER TO STAY ON THE WALKER AND NOT TRY USING THE CANE UNTIL SHE FOLLOWS UP WITH HIM DEC 12 2022. Objective Objective: THIS PATIENT AMBULATES INDEP'LY INTO PT WITH A FWW WBAT ON RLE X > 300 FEET X 2 IN AND OUT OF THE PT AREA FROM THE LOBBY WITH SLOW CADANCE AND DECREASED WT BEARING TIME, HEEL STRIKE AND TOE OFF PHASES OF GAIT ON THE R LE. SHE IS ABLE TO TRANSFER FROM SIT TO STAND AND REVERESE INDEP'LY WITH ARLEEN UE ASSIST. SHE IS PLEASANT AND COOPERATIVE TO WORK WITH AND A GOOD HISTORIAN. ARLEEN LE LIGHT TOUCH SENSATION IS GROSSLY INTACT AND SYMMETRICAL. ROM: DECREASED AROM R HIP ALL PLANES. L HIP ROM WFL. R KNEE FLEX TO 90 DEG. R ANKLE ROM WFL. L KNEE AND ANKLE ROM WFL. STRENGTH: R HIP 2/5, R KNEE 3-/5, ANKLE 4/5. L HIP 4-/5, KNEE 4/5, ANKLE 5/5. TUG TIME 31.44 SEC WITH FWW. STS CHAIR TEST X 5 WITH ARLEEN UE ASSIST. Balance/Special Test Scores Lower Extremity Functional Score: 23 TUG Test Time Seconds: 31.44 30 Second Chair Rise Test Seconds: 5 Goals Goal 1:: PATIENT WILL COMPLETE 9 STANDS IN 30 SECS TO DEMONSTRATE IMPROVED FUNCTIONAL STRENGTH Goal Time Frame: 6-8 Weeks Goal 2:: PATIENT WILL COMPLETE TUG IN < 15 SECS WITH LEAST AD TO DEMONSTRATE IMPROVED GAIT STABILITY Goal Time Frame: 6-8 Weeks Goal 3:: PATIENT WILL AMBULATE 800 FEET WITH CANE WITH SUPERVISION X 1 TO IMPROVE ACTIVITY TOLERANCE Goal Time Frame: 6-8 Weeks Goal 4:: PATIENT WILL BE ABLE TO INDEP'LY ASCEND AND DESCEND STEPS RECIPRICALLY WITH ONE HR AND LEAST AD SAFELY. Goal Time Frame: 6-8 Weeks Goal 5:: PATIENT WILL BE INDEP WITH A HEP FOR CONTINUED IMPROVEMENT ONCE FORMAL PHYSICAL THERAPY CONCLUDES. Goal Time Frame: 6-8 Weeks Anticipated Interventions Patient/Client Instruction: Educate patient on: Condition, Plan of Care and Risk Factors For the Purpose of:: To improve self management Therapeutic Exercise to Include: Strength training, Balance training, Flexibilty training and Gait and locomotor training For the Purpose of:: To increase ROM, To improve muscle performance and motor function, To increase tolerance to activity/condition/position, To improve ability of physical actions for home/community/work/leisure and To improve gait and locomotor functions Text: Thank you for the opportunity to evaluate your patient. For Medicare and Medicare HMO plans, please review the plan of care and approve it. It will need to be FAXED BACK to us at [phone] for Medicare purposes. For Medicare only, by signing this I certify the plan of care. Please let me know if there are questions or concerns regarding this plan of care. Physician Signature: Date:
--- NOTE | 2023-04-02 15:05 | HP.PTREVAL ---
Re-Evaluation Intro: Dr. Rancho Canas, DO, It has been my pleasure to treat MARGARETTE WISE over the last 22 visits for S/P R HIP NAILING REVISION 11/27/[address] CANAS. Please see the progress note below for an update on the physical therapy plan of care! Subjective Subjective: PATIENT REPORTS SHE CAN'T BUILD STRENGTH UP IN HER LEG AND GET BACK TO WHERE SHE WANTS TO BE. SHE REPORTS THE DOCTOR CONTINUES TO TELL HER THIS IS TO BE EXPECTED FOR WHAT HAS HAPPENED. PATIENT STATES SHE DOES NOT FEEL READY TO DO THE EXERCISES ON HER OWN YET. FOLLOW UP PENDING WITH DR. CANAS 04/08/22. PATIENT REPORTS SHE IS WEARING THE HEEL LIFT AND IT HELPS HER NOT LIMP MUCH. SHE STATES THAT WITH THE HEEL LIFT LEVELING HER OUT HER HIP DOESN'T HURT BAD. NO LONGER USING CANE OR WALKER. GOING UP AND DOWN 3 STEPS IN/OUT OF HOME ONE STEP AT A TIME WITH ONE HR. NO STEPS IN HOUSE. R HIP/THIGH PAIN RANGING 0 - 6/10 LBP RANGES 0-6-7/10. PATIENT REPORTS SHE IS VERY HAPPY WITH THE THERAPY AND CARE THAT SHE IS RECEIVING. PATIENT REPORTS COMPLIANCE WITH HOME EX PROGRAM AND SHE IS HOPING TO BE ABLE TO BECOME INDEP WITH A GYM PROGRAM HERE AT [facility] TOO WITH HER [employer] MEMBERSHIP WHEN SAFE. PATIENT STATES I HAVE COME A LONG WAY BUT ALSO STATES SHE ISN'T WHERE SHE WANTS TO BE. Objective Objective/Function: PATIENT WAS SEEN TODAY FOR RE-ASSESSMENT OF PROGRESS TOWARD THE SET PT GOALS AND THE NEED FOR FURTHER PHYSICAL THERAPY VS READINESS FOR DISCHARGE. PATIENT IS CONTINUING TO DEMONSTRATE SLOW PROGRESS WITH PT IN TERMS OF GAIT, PAIN REPORTS AND R LE FUNCTIONAL STRENGTH AND MOBILITY. SHE APPEARS TO BE A GOOD CANDIDATE TO CONTINUE PT BASED ON PROGRESS MADE AND ROOM FOR FURTHER PT. SHE IS AGREEABLE WITH CONTINUING PT IF SURGEON IS AGREEABLE. UPON EXAM TODAY: THIS PATIENT AMBULATES INDEP'LY INTO PT WITHOUT ANY ASSISTIVE DEVICES, WITH reciprocal PATTERN AND LIMP/DECREASED WEIGHTBEARING TIME ON RLE. PATIENT IS NOW WEARING A 1/4 INCH HEEL LIFT IN HER LEFT SHOE WHICH HAS RESULTED IN DECREASED GAIT DEVIATION AND DECREASED C/O R HIP PAIN WITH GAIT. R KNEE FLEX TO 116 DEG IN SUPINE WITH A HEEL SLIDE NOW COMPARED TO 90 DEG AT INITIAL EVAL. R ANKLE ROM WFL. STRENGTH: R HIP FLEX 4-/5, HIP ABD 3+/5, HIP EXT 4-/5, R KNEE EXT 4/5, R KNEE FLEX 4+/5, ANKLE DF 5/5, ANKLE PF 4/5. L HIP 4-/5, KNEE 4/5, ANKLE 5/5. PATIENT IS ONLY ABLE TO SLS ON R LE WITHOUT UE ASSIST FOR ABOUT 1TO 2 SECONDS WITHOUT LOB. SHE IS ABLE TO DESCEND STAIRS RECIPROCALLY WITH ONE HR BUT REQUIRES 2 HR'S TO ASCEND STEPS RECIPROCALLY WHEN LEADING UP WITH R LE. TUG TEST TIME AND STS TEST SCORE HAVE IMPROVED PER BELOW: TUG TIME 14.87 SEC WITHOUT ANY AD'S. STS CHAIR TEST X 11 WITHOUT UE ASSIST. THERE IS NO SIGNIFICANT IMPROVEMENT IN LEFS SCORE REPORTED BY PATIENT. Plan Plan Plan: IF C-9 AND PHYSICIAN ORDERS REC'D: CONTINUE PT 2X'S A WK X 12 VISITS FOR ARLEEN LE ROM, STRETCHING AND STRENGTHENING TO HELP MEET SET GOALS. CONTINUE TO HELP PATIENT TRANSITION TO SAFE INDEP GYM PROGRAM ABLE. Balance/Gait/Functional tests Balance/Special Test Scores Lower Extremity Functional Score: 22 TUG Test Time Seconds: 31.44 Tug Test: >30sec.=impaired mobility 30 Second Chair Rise Test Seconds: 13 Goals Goals Goal 1:: PATIENT WILL COMPLETE 9 STANDS IN 30 SECS TO DEMONSTRATE IMPROVED FUNCTIONAL STRENGTH Goal Time Frame: 6-8 Weeks Goal Progress: Goal Met Goal 2:: PATIENT WILL COMPLETE TUG IN < 15 SECS WITH LEAST AD TO DEMONSTRATE IMPROVED GAIT STABILITY Goal Time Frame: 6-8 Weeks Goal Progress: Goal Met Goal 3:: PATIENT WILL AMBULATE 800 FEET WITH CANE WITH SUPERVISION X 1 TO IMPROVE ACTIVITY TOLERANCE Goal Time Frame: 6-8 Weeks Goal Progress: Goal Met Goal 4:: PATIENT WILL BE ABLE TO INDEP'LY ASCEND AND DESCEND STEPS RECIPRICALLY WITH ONE HR AND LEAST AD SAFELY. Goal Time Frame: 6-8 Weeks Goal Progress: Progressing Goal 5:: PATIENT WILL BE INDEP WITH A HEP FOR CONTINUED IMPROVEMENT ONCE FORMAL PHYSICAL THERAPY CONCLUDES. Goal Time Frame: 6-8 Weeks Goal Progress: Progressing Goal 6:: PATIENT WILL BE INDEP WITH A GYM EX PROGRAM FOR CONTINUED IMPROVEMENT ONCE FORMAL PHYSICAL THEARPY CONCLUDES. Goal Time Frame: 4-6 Weeks Anticipated Interventions Anticipated Interventions Patient/Client Instruction: Educate patient on: Condition, Plan of Care and Risk Factors For the Purpose of:: To improve self management Therapeutic Exercise to Include: Strength training, Balance training, Flexibilty training and Gait and locomotor training For the Purpose of:: To increase ROM, To improve muscle performance and motor function, To increase tolerance to activity/condition/position, To improve ability of physical actions for home/community/work/leisure and To improve gait and locomotor functions Re-Evaluation Ending Re-evaluation ending: Please do not hesitate to contact me at [phone] by phone or if you have questions or concerns regarding this new plan of care! Sincerely, Zamzam Causey, PT, Cert MDT
== END 2023-04-02 19:00 | disposition home or self-care (01) ==
LOC: PT 13:30
PROVIDERS: PCP Family Medicine Geriatric Medicine; Referring Provider Student in an Organized Health Care Education/Training Program; Visit Provider Student in an Organized Health Care Education/Training Program
DX: S72.141D Displaced intertrochanteric fracture of right femur, subsequent encounter for closed fracture with routine healing (principal); T84.84XD Pain due to internal orthopedic prosthetic devices, implants and grafts, subsequent encounter
CPT/HCPCS: 97110; 97140; 97162; 97164

== ENCOUNTER → 2023-07-02 | Outpatient (CLI) | payer MEDICARE, SELFPAY ==
[2023-07-02 15:40] LABS: Absolute Lymphocyte Count 1.35 X10^3/uL (0.83-4.51); Absolute Neutrophil Count 3.5 X10^3/uL (2.0-7.7); Basophil# 0.03 X10^3/uL; Basophil% 0.5 % (0-1); Eosinophil# 0.16 X10^3/uL; Eosinophils% 2.9 % (0-5); Hematocrit 38.8 % (37-47); Hemoglobin 12.5 g/dL (12.0-15.0); Lymphocyte # 1.35 X10^3/ul (0.83-4.51); Lymphocyte % 24.5 % (19-41); Mean Corp Hgb Conc 32.2 g/dL (32-36); Mean Corpuscular Hgb 32.3 pg (27.0-32.0); Mean Corpuscular Volume 100.3 fL (81-99); Mean Platelet Vol. 8.6 fl (6.2-12.0); Monocyte# 0.51 X10^3/uL; Monocyte% 9.2 % (0-10); NRBC Flagged by Analyzer 0 % (0-5); Neutrophil # 3.45 X10^3/uL (2.7-7.7); Neutrophil % 62.5 % (47-70); Platelet Count 239 K/mm3 (150-450); RBC Distribution Width CV 13.3 % (11.6-14.6); RBC Distribution Width SD 49.6 fl (35.1-43.9); Red Blood Count 3.87 M/mm3 (4.2-5.4); White Blood Count 5.5 K/mm3 (4.4-11.0)
[2023-07-02 15:55] LABS: Vitamin D,25 Hydroxy 26.2 ng/mL
[2023-07-02 16:30] LABS: ALB/GLOB Ratio 1.2 RATIO (0.9-2.4); AST(SGOT) 29 U/L (15-37); Alanine Aminotransfer ALT/SGPT 19 U/L (13-56); Albumin, Serum 4.2 g/dL (3.2-5.0); Alkaline Phosphatase 104 U/L (45-117); Anion Gap 6 (5-15); BUN 17 mg/dL (7-18); BUN/Creat Ratio 18.3 RATIO (10-20); Chloride 106 mmol/L (98-107); Creatinine, Serum 0.93 mg/dL (0.55-1.02); EST Glomerular Filtration Rate 62 mL/min (>60); Est Glom Filt Rate - Afr Amer 75 mL/min (>60); Globulin 3.5 g/dL (2.2-4.2); Glucose 88 mg/dL (74-106); Potassium 3.5 mmol/L (3.5-5.1); Protein, Total 7.7 g/dL (6.4-8.2); Sodium Level 141 mmol/L (136-145); Thyroid Stim Hormone (TSH) 1.25 uIU/mL (0.358-3.74)
== END | disposition home or self-care (01) ==
LOC: POLAB3 14:51
PROVIDERS: PCP Family Medicine Geriatric Medicine; Visit Provider Family Medicine Geriatric Medicine
DX: E11.65 Type 2 diabetes mellitus with hyperglycemia (principal); I10 Essential (primary) hypertension; E55.9 Vitamin D deficiency, unspecified
CPT/HCPCS: 36415; 80053; 82306; 84443; 85025

== ENCOUNTER → 2024-01-04 | Outpatient (CLI) | payer MEDICARE, OTHER, SELFPAY ==
[2024-01-04 15:44] LABS: Absolute Lymphocyte Count 1.24 X10^3/uL (0.83-4.51); Absolute Neutrophil Count 5.3 X10^3/uL (2.0-7.7); Basophil# 0.03 X10^3/uL; Basophil% 0.4 % (0-1); Eosinophil# 0.24 X10^3/uL; Eosinophils% 3.2 % (0-5); Hematocrit 36.6 % (37-47); Hemoglobin 11.4 g/dL (12.0-15.0); Lymphocyte # 1.24 X10^3/ul (0.83-4.51); Lymphocyte % 16.5 % (19-41); Mean Corp Hgb Conc 31.1 g/dL (32-36); Mean Corpuscular Hgb 31.5 pg (27.0-32.0); Mean Corpuscular Volume 101.1 fL (81-99); Mean Platelet Vol. 8.8 fl (6.2-12.0); Monocyte# 0.67 X10^3/uL; Monocyte% 8.9 % (0-10); NRBC Flagged by Analyzer 0 % (0-5); Neutrophil # 5.31 X10^3/uL (2.7-7.7); Neutrophil % 70.7 % (47-70); Platelet Count 261 K/mm3 (150-450); RBC Distribution Width CV 13.8 % (11.6-14.6); RBC Distribution Width SD 51.5 fl (35.1-43.9); Red Blood Count 3.62 M/mm3 (4.2-5.4); White Blood Count 7.5 K/mm3 (4.4-11.0)
[2024-01-04 16:08] LABS: Vitamin D,25 Hydroxy 42.5 ng/mL
[2024-01-04 16:12] LABS: LDH 285 U/L (84-246)
[2024-01-04 16:27] LABS: ALB/GLOB Ratio 1.1 RATIO (0.9-2.4); AST(SGOT) 31 U/L (15-37); Alanine Aminotransfer ALT/SGPT 17 U/L (13-56); Albumin, Serum 3.8 g/dL (3.2-5.0); Alkaline Phosphatase 73 U/L (45-117); Anion Gap 9 (5-15); BUN 9 mg/dL (7-18); BUN/Creat Ratio 9.7 RATIO (10-20); Calcium,Total 9.3 mg/dL (8.5-10.1); Chloride 103 mmol/L (98-107); Creatinine, Serum 0.93 mg/dL (0.55-1.02); EST Glomerular Filtration Rate 62 mL/min (>60); Est Glom Filt Rate - Afr Amer 75 mL/min (>60); Globulin 3.5 g/dL (2.2-4.2); Glucose 104 mg/dL (74-106); Potassium 3.4 mmol/L (3.5-5.1); Protein, Total 7.3 g/dL (6.4-8.2); Sodium Level 139 mmol/L (136-145); Thyroid Stim Hormone (TSH) 0.982 uIU/mL (0.358-3.740)
[2024-01-06 12:10] LABS: Carcinoembryonic Antigen 1.7 ng/mL (0.0-4.7)
== END | disposition home or self-care (01) ==
LOC: POLAB3 15:21
PROVIDERS: Internal Medicine Medical Oncology; PCP Family Medicine Geriatric Medicine; Visit Provider Family Medicine Geriatric Medicine
DX: E11.65 Type 2 diabetes mellitus with hyperglycemia (principal); C18.9 Malignant neoplasm of colon, unspecified; E55.9 Vitamin D deficiency, unspecified; I10 Essential (primary) hypertension
CPT/HCPCS: 36415; 80053; 82306; 82378; 83615; 84443; 85025

== ENCOUNTER → 2024-01-25 | Outpatient (CLI) | payer OTHER, SELFPAY ==
--- NOTE | 2024-01-25 14:35 | RAD_ITS ---
STUDY: X-RAY - LUMBOSACRAL SPINE REASON FOR EXAM: Female, 78 years old. Radiating low back pain TECHNIQUE: 6 view(s) of the lumbosacral spine were obtained. COMPARISON: 05/30/2010 FINDINGS: Normal lumbar lordosis. There is a minimal levoscoliosis of the lumbar spine. There is normal alignment of the vertebrae in the lateral view. There is diffuse demineralization with multi-level endplate spondylosis. There is multi-level degenerative disc disease with multi-level disc space narrowing. There are chronic compression fractures affecting the superior endplate of L1 with loss of approximately 50% of its height along with the superior endplate of L4 which is lost approximately 20% of its height. No acute fracture or paraspinal mass. 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 There is atherosclerotic calcification of the abdominal aorta without a demonstrated aneurysm. Vertebroplasty noted at T10 RAD/L/S Spine Comp/w Bending Views IMPRESSION: Multilevel degenerative changes, no acute findings Electronically Signed: Dimitri Barron MD at 12:46 EDT ,
== END | disposition home or self-care (01) ==
PROVIDERS: PCP Family Medicine Geriatric Medicine; Referring Provider Anesthesiology Pain Medicine; Visit Provider Anesthesiology Pain Medicine
DX: S72.144A Nondisplaced intertrochanteric fracture of right femur, initial encounter for closed fracture (principal)
CPT/HCPCS: 72114

== ENCOUNTER 2024-05-19 12:53 | Outpatient (RCR) | payer OTHER, MEDICARE, SELFPAY ==
--- NOTE | 2024-05-19 15:45 | HP.FCE ---
Task Lift Floor (Occasional 1-33% of Day): 0 Floor (Frequent 34-66% of Day): 0 Floor (Constant 67-100% of Day): 0 Floor PDL: No Ability Knee (Occasional 1-33% of Day): 0 Knee (Frequent 34-66% of Day): 0 Knee (Constant 67-100% of Day): 0 Knee PDL: No Ability Waist (Occasional 1-33% of Day): 0 Waist (Frequent 34-66% of Day): 0 Waist (Constant 67-100% of Day): 0 Waist PDL: No Ability Shoulder (Occasional 1-33% of Day): 0 Shoulder (Frequent 34-66% of Day): 0 Shoulder (Constant 67-100% of Day): 0 Shoulder PDL: No Ability Overhead (Occasional 1-33% of Day): 0 Overhead (Frequent 34-66% of Day): 0 Overhead (Constant 67-100% of Day): 0 Overhead PDL: No Ability Comments: pt rates as no ability in all task lifts during completion of FCE Work Activity/Posture Bending: Frequent Ability (34-66% of day) Squatting: Occasional Ability (1-33% of day) Kneeling: No Ablility (0% of day) Reaching out: Frequent Ability (34-66% of day) Reaching up: Frequent Ability (34-66% of day) Sitting: Occasional Ability (1-33% of day) Walking: Occasional Ability (1-33% of day) Standing: Occasional Ability (1-33% of day) Reference Reference: Duration Sedentary Sedentary Light Light Light Medium Medium Medium Heavy Very Heavy Heavy Occasional (0-33% of day) Frequent (34-66% of day) Constant (67-100% of day) 10 # Negligible Negligible 15 # 8 # Negligible 20 # 10# Negli. 35 # 18 # 7 # 50 # 25 # 10 # 75 # 100 # >100 # 38 # 50 # >50 # 15 # 20 # >20 # Patient Information Height: 4 ft 7 in Weight:: 58.967 kg Hand Dominance: R Medical History Medical History Including Restrictions: This female arrives with history of hip fx May 122022 after sustaining fall while at work reaching to [employer] papertowel dispenser. Pt with surgery May 14 then revision in November due to nail coming loose at hip. Pt has therapy while in hospital 45 days before going home. pt did a total of 11 months of physical therapy after sustaining injury. per pt has been approximately a year since her therapy sessions. Pt states pain has gotten better however feels very weak and has decreased endurance. Pt has B knee replacement. 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 One story home no need to manage stairs. Pt completes own self care tasks states it takes longer for her to complete. pt completes IADL tasks with increased time. pt drives. pt does own grocery shopping (states very little) will have grandson help as needed. grandson completes outdoor yardwork. pt does not currently use any AD as means of mobility however will use AD walker when feeling weak/ sick. does have access to additional AD as needed. Physical Examination Physical Examination: baseline seated HR 93 bpm and 02 97%------- pt has afib ROM: Upper Extremity: BUE WFL Lower Extremity: BLE WFL Strength: measured with fet peak force for objective numbers Upper Extremity: L shoulder flexion: 5.1# R shoulder flexion: 6.2# L bicep: 12.9# R bicep: 9.6# L tricep: 13.4# R tricep: 9.9# L ER: 12.8# R ER: 11.3# Lower Extremity: L hip flexion: 10.5# R hip flexion: 11.3# L quad: 13.3# R quad: 13.8# L hamstrin.4# R hamstrin.9# Right Edge Banding Off Bearer Strength Average: 13.33 Right Edge Banding Off Bearer Strength Percentile: <10th percentile Left Edge Banding Off Bearer Strength Average: 21.66 Left Edge Banding Off Bearer Strength Percentile: <10th percentile Right Lateral Pinch Average: 1.66 Right Lateral Pinch Percentile: <10th percentile Left Lateral Pinch Average: 0 Left Lateral Pinch Percentile: <10th percentile Right Tripod Pinch Average: 0 Right Tripod Pinch Percentile: <10th percentile Left Tripod Pinch Average: 0.66 Left Tripod Pinch Percentile: <10th percentile Comments: [employer]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 percentile Sensation: denies issue with sensation at this time Fine Motor: 9 hole peg assessment L hand trial 1: 32 sec L hand trial 2: 28 sec L hand trial 3: 25 sec L hand average: 28.3 seconds indicating 25% for age and gender R hand trial 1: 22 sec R hand trial 2: 22 sec R hand trial 3: 22 sec R hand average: 22 seconds indicating 50% for age and gender Balance: standing forward reach score 6 a score of 6 or less indicates significant increased risk for falls Non Material Handling Activities Bending: Bending: trial of 3: 3/3 10x at own pace: 01/13 10x fast: 1010 HR 88 bpm and 02 96% uses unilateral support of desk for stability bends at waist able to touch floor each time needs seated rest break after completion light headed after completion pain rating 0/10 Squatting: Squatting: trial of 3: 3/3 10x at own pace: 1010 10x fast: 7/10 pt squats less than alf down unable to go further this date uses unilateral support of desk for support HR 102 bpm and 02 97% pain rating 0/10 Kneeling: Kneeling: trial of 3: 0 10x at own pace: 0 10x fast: 0 --- pt will x2 knee replacement is unable to take a knee per pt she does not have to do this movement for her job states if she did have to she still would not she would ask someone for assistance Reaching out/up: reaching out: trail of 3: 3/3 10x at own pace: 10/10 10x fast: 01/13 sits for RB after completion reaching up: trial of 3: 06/06 10x at own pace: 01/13 10x fast: 01/13 HR 102 bpm and 02 97% no need for external support during task no LOB during task Walking: pt is able to walk from waiting section 3/[address] to OT section of building before needing to stop for static standing RB approx 170 feet Standing: per pt report she would be able to stand for approx 30 min duration before needing to sit for RB during FCE this date pt is able to stand for approx 10 min duration before needing seated RB Sitting: per pt report pt could sit for up to an hour before needing to stand and change positions due to pressure on hip pt is able to sit for intake of FCE assessment approx 35 min before standing to change positions this date Climbing Stairs: pt is able to ascend 10 steps using step to pattern with B hand rails able to descend 10 steps with B hand rails step to pattern HR 100 bpm 02 96% pt would be unable to climb steps without the BUE support needed pt current position with company would need to be able to ascend and descend 26 steps to get into building-- pt reports she is only able to use one UE support due to width of steps unable to reach both at same time Dynamic Occasional Lifting Capacity Floor Lift: Floor Lift: unable Knee Lift: Knee Lift: unable gets approx alf unable to lift to get onto counter top Waist Lift: waist lift: unable pt is able to lift a few inches from counter unable to take step and return with it Shoulder Lift: shoulder lift: unable Overhead Lift: Overhead Lift: unable Carrying: Carry: unable
== END 2024-05-19 19:00 | disposition home or self-care (01) ==
LOC: OT 12:53
PROVIDERS: PCP Family Medicine Geriatric Medicine; Referring Provider Specialist; Visit Provider Specialist
DX: M16.11 Unilateral primary osteoarthritis, right hip (principal)
CPT/HCPCS: 97750

== ENCOUNTER → 2024-08-15 | Outpatient (CLI) | payer MEDICARE, SELFPAY ==
[2024-08-15 14:58] LABS: Absolute Lymphocyte Count 0.98 X10^3/uL (0.83-4.51); Absolute Neutrophil Count 3.1 X10^3/uL (2.0-7.7); Basophil# 0.02 X10^3/uL; Basophil% 0.4 % (0-1); Eosinophil# 0.11 X10^3/uL; Eosinophils% 2.4 % (0-5); Hematocrit 33.7 % (37-47); Hemoglobin 10.9 g/dL (12.0-15.0); Lymphocyte # 0.98 X10^3/ul (0.83-4.51); Lymphocyte % 21.1 % (19-41); Mean Corp Hgb Conc 32.3 g/dL (32-36); Mean Corpuscular Hgb 32.1 pg (27.0-32.0); Mean Corpuscular Volume 99.1 fL (81-99); Mean Platelet Vol. 8.8 fl (6.2-12.0); Monocyte# 0.46 X10^3/uL; Monocyte% 9.9 % (0-10); NRBC Flagged by Analyzer 0 % (0-5); Neutrophil # 3.06 X10^3/uL (2.7-7.7); Neutrophil % 65.8 % (47-70); Platelet Count 187 K/mm3 (150-450); White Blood Count 4.7 K/mm3 (4.4-11.0)
[2024-08-15 16:01] LABS: ALB/GLOB Ratio 1.6 RATIO (0.9-2.4); AST(SGOT) 26 U/L (<=31); Alanine Aminotransfer ALT/SGPT 10 U/L (<=34); Albumin, Serum 4.3 g/dL (3.4-4.8); Alkaline Phosphatase 83 U/L (35-104); Anion Gap 10 (5-15); BUN 13 mg/dL (4-19); Calcium,Total 9.4 mg/dL (7.6-11.0); Carbon Dioxide 28.5 mmol/L (21.0-32.0); Chloride 104 mmol/L (98-108); Creatinine, Serum 0.86 mg/dL (0.70-1.20); EST Glomerular Filtration Rate 69 (>60); Globulin 2.7 g/dL (2.2-4.2); Glucose 91 mg/dL (70-99); Potassium 3.7 mmol/L (3.3-5.1); Sodium Level 142 mmol/L (133-145); Total Bilirubin 0.85 mg/dL (0.00-1.30)
[2024-08-15 16:02] LABS: Vitamin D,25 Hydroxy 27.9 ng/mL (30-100)
== END | disposition home or self-care (01) ==
LOC: LAB 14:01
PROVIDERS: PCP Family Medicine Geriatric Medicine; Referring Provider Family Medicine Geriatric Medicine; Visit Provider Family Medicine Geriatric Medicine
DX: E11.65 Type 2 diabetes mellitus with hyperglycemia (principal); I10 Essential (primary) hypertension; E55.9 Vitamin D deficiency, unspecified
CPT/HCPCS: 36415; 80053; 82306; 84443; 85025

== ENCOUNTER → 2024-08-17 | Outpatient (CLI) | payer MEDICARE, SELFPAY ==
[2024-08-17 11:38] LABS: Absolute Lymphocyte Count 0.78 X10^3/uL (0.83-4.51); Absolute Neutrophil Count 2.6 X10^3/uL (2.0-7.7); Basophil# 0.01 X10^3/uL; Basophil% 0.3 % (0-1); Eosinophil# 0.11 X10^3/uL; Eosinophils% 2.8 % (0-5); Hematocrit 32.4 % (37-47); Hemoglobin 10.5 g/dL (12.0-15.0); Lymphocyte # 0.78 X10^3/ul (0.83-4.51); Lymphocyte % 19.7 % (19-41); Mean Corp Hgb Conc 32.4 g/dL (32-36); Mean Corpuscular Volume 98.8 fL (81-99); Mean Platelet Vol. 8.8 fl (6.2-12.0); Monocyte# 0.42 X10^3/uL; Monocyte% 10.6 % (0-10); NRBC Flagged by Analyzer 0 % (0-5); Neutrophil # 2.62 X10^3/uL (2.7-7.7); Neutrophil % 66.3 % (47-70); Platelet Count 175 K/mm3 (150-450); RBC Distribution Width SD 47.1 fl (35.1-43.9); RET-HE 33.4 pg (30-35); Red Blood Count 3.28 M/mm3 (4.2-5.4); Reticulocyte Count 1.53 % (0.5-1.5)
[2024-08-17 13:14] LABS: Ferritin 105 ng/mL (22-378); Iron 64 ug/dL (50-170); Iron Binding Capacity,Total 301 ug/dL (250-450); Iron Binding Capacity,Unsat 237 ug/dL (228-428); Vitamin B12 206 pg/mL (180-914)
== END | disposition home or self-care (01) ==
LOC: LAB 10:07
PROVIDERS: PCP Family Medicine Geriatric Medicine; Referring Provider Family Medicine Geriatric Medicine; Visit Provider Family Medicine Geriatric Medicine
DX: D50.9 Iron deficiency anemia, unspecified (principal)
CPT/HCPCS: 36415; 82607; 82728; 82746; 83540; 83550; 85025; 85045

== ENCOUNTER → 2024-08-23 | Outpatient (CLI) | payer MEDICARE, SELFPAY | END | disposition home or self-care (01) | LOC: LABSPEC 13:22 | PROVIDERS: PCP Family Medicine Geriatric Medicine; Referring Provider Family Medicine Geriatric Medicine; Visit Provider Family Medicine Geriatric Medicine | DX: D50.9 Iron deficiency anemia, unspecified (principal) | CPT/HCPCS: 82274 ==

== ENCOUNTER → 2024-10-11 | Outpatient (CLI) | payer MEDICARE, SELFPAY ==
--- NOTE | 2024-10-11 06:57 | ECHOD_ITS ---
Reason For Study Reason For Study: TERRAZAS Procedure This was a 2D Doppler, Color Flow transthoracic echocardiogram. Exam performed in department. Left Ventricle Normal LV size. Mild concentric left ventricular hypertrophy. The left ventricular ejection fraction is 55 %. No regional wall motion abnormalities noted. Right Ventricle Normal RV size. Normal systolic function. Atria The left atrium is moderately enlarged. The right atrium is moderately enlarged. Lipomatous hypertrophy of the atrial septum. Mitral Valve Normal mitral valve. Moderate (2+) eccentric mitral valve insufficiency. Tricuspid Valve Normal tricuspid valve. Mild to moderate (1-2+) tricuspid valve insufficiency. Pulmonary artery systolic pressure is 59 mmHg. Aortic Valve Trisinus/trileaflet aortic valve. Mild focal aortic valve calcification. Pulmonic Valve Normal pulmonic valve. Mild (1+) pulmonic valve insufficiency. Great Vessels Normal aortic root. The pulmonary artery is normal size. Inferior vena cava collapse with respiration. Pericardium/Pleural No pericardial effusion. MMode/2D Measurements & Calculations LVIDd: 4.3 cm IVSd: 1.3 cm LVOT diam: 2.0 cm LVIDs: 2.9 cm LVPWd: 1.3 cm LVOT area: 3.0 cm2 RVDd: 4.2 cm FS: 32.3 % Ao root diam: 3.3 cm LAV(MOD-bp): 89.0 ml LVAd ap4: 17.0 cm2 ACS: 1.0 cm LAV(MOD-bp) Indexed: 57.7 ml/m2 LVLd ap4: 6.0 cm LAV(MOD-sp2): 75.8 ml EDV(MOD-sp4): 41.3 ml LAV(MOD-sp4): 87.3 ml EDV(sp4-el): 41.2 ml LVAs ap4: 10.6 cm2 LVLs ap4: 5.1 cm ESV(MOD-sp4): 19.1 ml ESV(sp4-el): 18.9 ml EF(MOD-sp4): 53.9 % EF(sp4-el): 54.2 % SV(MOD-sp4): 22.3 ml SV(sp4-el): 22.3 ml LA A4 area: 25.8 cm2 SI(MOD-sp4): 14.4 ml/m2 LA dimension(2D): 5.8 cm RA A4 area: 26.9 cm2 TAPSE: 1.4 cm Doppler Measurements & Calculations MV E max jose: 127.2 cm/sec Lat Peak E' Jose: 14.1 cm/sec Med Peak E' Jose: 8.0 cm/sec E/E' lat: 9.0 E/E' med: 15.9 Ao V2 max: 184.2 cm/sec LV V1 max: 100.6 cm/sec SV(LVOT): 58.6 ml Ao max P.7 mmHg LV V1 max P.1 mmHg Ao V2 mean: 136.2 cm/sec LV V1 mean P.3 mmHg Ao mean P.3 mmHg LV V1 mean: 72.1 cm/sec Ao V2 VTI: 36.0 cm LV V1 VTI: 19.2 cm AV (velocity ratio): 0.53 KRISTA(I,D): 1.6 cm2 KRISTA(V,D): 1.7 cm2 PA V2 max: 127.0 cm/sec PI end-d jose: 146.4 cm/sec TR max jose: 370.9 cm/sec TR max P.0 mmHg ECHO/Echo Complete Interpretation Summary Normal LV size. The left ventricular ejection fraction is 55 %. The left atrium is moderately enlarged. The right atrium is moderately enlarged. Moderate (2+) eccentric mitral valve insufficiency. Mild to moderate (1-2+) tricuspid valve insufficiency. Mild concentric left ventricular hypertrophy. Mild focal aortic valve calcification. Pulmonary artery systolic pressure is 59 mmHg. Ordering Physician: Alan Pichardo Referring Physician: Cassius Monaco Chi Performed By: Billie Gilliland RVT, RDCS and Student
--- NOTE | 2024-10-11 18:07 | STRESSREP ---
Stress Test Report Pharmacologic myocardial perfusion stress test. 78-year-old lady with a history of dyspnea on exertion and valvular heart disease Resting EKG demonstrates sinus rhythm with a rate of 84 bpm. Resting blood pressure is 146/93 mmHg. 0.4 mg of regadenoson was infused per usual protocol followed by rapid intravenous saline flush injection. Continuous EKG monitoring was performed. The maximum heart rate was 115 bpm which was 80% of max impacted heart rate the maximum workload was 1 metabolic equivalent. At rest there were no ST or T wave changes noted to suggest ischemia and at peak infusion nonspecific ST changes were noted which did not meet the criteria for ischemia. No clinical angina is noted. The final blood pressure was 146/82 mmHg. Myocardial perfusion protocol. 13.1 mCi of technetium 99m sestamibi was injected at rest. 0.4 mg of regadenoson was infused per usual protocol. At peak infusion 39.4 mCi of technetium 99m sestamibi was injected stress images were obtained stress and rest images were reconstructed and compared in the short axis vertical long and horizontal long axis. Gated images were also obtained. Perfusion SPECT analysis: Review of the stress images demonstrate normal uptake of tracer noted in all areas of the myocardium. The resting images similar demonstrated normal uptake of tracer noted in all areas of the myocardium. No areas of reversibility are noted to suggest ischemia and no previous infarct is noted. Gated SPECT analysis: The gated ejection fraction is 69%. Conclusion: Normal pharmacologic myocardial perfusion stress test. Preserved ejection fraction.
== END | disposition home or self-care (01) ==
LOC: CVS 06:56
PROVIDERS: PCP Family Medicine Geriatric Medicine; Referring Provider Student in an Organized Health Care Education/Training Program; Visit Provider Student in an Organized Health Care Education/Training Program
DX: R06.09 Other forms of dyspnea (principal)
CPT/HCPCS: 78452; 93017; 93306; A9500; A4216; J2785

== ENCOUNTER → 2024-10-14 | Outpatient (CLI) | payer MEDICARE, SELFPAY ==
[2024-10-14 16:33] LABS: Anion Gap 10 (5-15); BUN 13 mg/dL (4-19); BUN/Creat Ratio 13.8 RATIO (10-20); Calcium,Total 9.5 mg/dL (7.6-11.0); Carbon Dioxide 26.6 mmol/L (21.0-32.0); Chloride 103 mmol/L (98-108); Glucose 89 mg/dL (70-99); Potassium 5.0 mmol/L (3.3-5.1)
== END | disposition home or self-care (01) ==
LOC: LAB 14:54
PROVIDERS: PCP Family Medicine Geriatric Medicine; Referring Provider Student in an Organized Health Care Education/Training Program; Visit Provider Student in an Organized Health Care Education/Training Program
DX: I10 Essential (primary) hypertension (principal); I27.20 Pulmonary hypertension, unspecified
CPT/HCPCS: 36415; 80048

== ENCOUNTER 2024-11-03 11:09 | Day surgery (SDC) | payer MEDICARE, SELFPAY ==
--- NOTE | 2024-10-31 09:37 | PAT.ANE_ITS ---
Pre-Assessment Diagnosis/Proposed Procedure Planned Operative Procedure(s): COLONOSCOPY/EGD Anesthesia History Anesthesia History - director of strategic alliances: Anesthesia History - director of strategic alliances Hx Hospitalization No 10/31/24 08:43 Any Problems With Anesthesia Yes: PONV 10/31/24 08:43 Cholinesterase deficiency No 10/31/24 08:43 You/Your Family Experience No 10/31/24 08:43 fever (hyperthermia) with Relationship Recent Exposure to Contagious No 11/27/22 10:17 Disease Does patient have nerve No 10/31/24 08:43 stimulator Patient instructed to have device shut off --Does patient have Pacemaker or ICD? When Was Last Pacemaker Check QUESTION #4 FULL TEXT: You/Your Family Experience fever (hyperthermia) with Anesthesia Last Oral Intake Last Oral intake: Last Oral Intake NPO since Meds taken in AM with sips of water? Meds patient instructed to take am of surgery PONV PONV - director of strategic alliances: PONV - director of strategic alliances Female Yes 10/31/24 08:43 HX of Motion Sickness No 10/31/24 08:43 HX of N/V After Surgery No 10/31/24 08:43 Non-Smoker Yes 10/31/24 08:43 Duration of Surgery greater No 10/31/24 08:43 than 60 minutes Number of Risk Factors 2 10/31/24 08:43 PONV Score Moderate Risk 10/31/24 08:43 Height & Weight Height & Weight: Anesthesia: Height & Weight Height 4 ft 7 in 08/10/24 08:26 Respiratory Assessment Respiratory Assessment - director of strategic alliances: Respiratory Tract Infection Hx - director of strategic alliances Hx Respiratory Tract Infection No 10/31/24 08:43 STOP Sleep Apnea STOP Sleep Apnea - director of strategic alliances: STOP Sleep Apnea - director of strategic alliances Hx 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 Yes: PER PT, CONTROLLED ON 10/31/24 08:43 MEDS Hx Sleep Apnea No 10/31/24 08:43 CPAP No 10/31/24 08:43 BIPAP Do you snore loudly (louder No 10/31/24 08:43 than talking or can be heard Do you often feel tired/ No 10/31/24 08:43 fatigued/ sleepy during daytime? Has anyone observed you stop No 10/31/24 08:43 breathing during sleep? STOP Results Negative 10/31/24 08:43 QUESTION #5 FULL TEXT : Do you snore loudly (louder than talking or can be heard through closed doors)? 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 Specify any problems Hx of Preganancy in last 3 No 10/31/24 08:43 Months Nurse Filling Out Transfusion VCHRISTIN 10/31/24 08:43 & Questions: Date: 10/31/24 10/31/24 08:43 Time: 08:44 10/31/24 08:43 Patient unable to answer at this time (ie. confused, unrespo /Reproduction History /Reproductive History - director of strategic alliances: /Reproductive Hx- director of strategic alliances Hx Now No 10/31/24 08:43 Gestational Age (in weeks): EDC: Hx Hx Para Hx Section SAB No 10/31/24 08:43 [facility] Medical History (Updated 10/31/24 @ 08:43 by Beth Moore) Post-menopausal Excessive bleeding Sleep apnea Normal Holter exam Hx of fracture of femur Ambulates with cane History of intracranial hemorrhage PONV (postoperative nausea and vomiting) Venous insufficiency of both lower extremities Osteoarthritis History of atrial fibrillation Closed fracture of right hip Fall Cholecystitis, chronic Depression Shortness of breath on exertion History of edema 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 Cardiology follow-up encounter Abdominal pain TERRAZAS (dyspnea on exertion) Difficult intravenous access Anxiety Low iron History of ulceration Non-smoker History of stress test History of echocardiogram Aortic valve stenosis, acquired Brain mass Atrial fibrillation Complicated UTI (urinary tract infection) Rt flank pain Longstanding persistent atrial fibrillation 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 Iron deficiency anemia Wears dentures Arthritis High cholesterol Easy bruising Back pain Normal stress echocardiogram (~06/03/17) Normal echocardiogram (~06/08/20) CAD (coronary artery disease) Anemia Cerumen impaction Non-rheumatic tricuspid valve insufficiency Non-rheumatic mitral regurgitation Essential hypertension nursing home current use of anticoagulant Moderate to severe pulmonary hypertension Severe mitral regurgitation Vertigo GERD (gastroesophageal reflux disease) Costochondritis Mixed hyperlipidemia Paroxysmal atrial fibrillation Syncope and collapse Bradycardia bilateral feet surgery Home Medications ?Medication ?Instructions ?Recorded ?Last Taken ?Type calcium carbonate 500 mg PO DAILY Supplement 0 05/20/22 11/26/22 History acetaminophen 500 mg tablet 1,000 mg (2 x 500 mg) PO Q 8 PRN 06/10/22 11/26/22 Rx pain or fever #1 TAB cholecalciferol (vitamin D3) 25 25 mcg PO DAILYCM #30 tabs 06/10/22 11/26/22 Rx mcg (1,000 unit) tablet isosorbide mononitrate 30 mg 30 mg PO DAILY #90 tabs 1 04/20/23 Unknown Rx tablet,extended release 24 hr lisinopril 40 mg tablet 40 mg PO QDAY 08/10/24 Unkno wn History colestipol 1 gram tablet 1 g PO QHS 09/13/24 Unknown History metoprolol tartrate 50 mg tablet 50 mg PO BID #180 tab s 09/26/24 Unknown Rx pravastatin 40 mg tablet 40 mg PO QHS for cholesterol #90 09/29/24 Unknown Rx TABLETS furosemide 40 mg tablet 40 mg PO .COMPLEX Fluid rete ntion 10/14/24 Unknown Rx #125 tabs Allergy/AdvReac Type Severity Reaction Status Date / Time piroxicam Allergy CAUSES Verified 10/31/24 08:29 BLEEDING ULCER adhesive tape AdvReac Rash/BLISTE Verified 10/31/24 08:29 RS Family History Mother 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 Father , from [place] at age 69 CAD (coronary artery disease) Myocardial infarction, Onset Age: 69 Brother 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 Heart disease Myocardial infarction Pacemaker Surgical History (Updated 10/31/24 @ 08:43 by Beth Moore) History of back surgery History of cardiac catheterization Hx of reduction of closed fracture History of laparoscopic cholecystectomy History of colectomy (~10/2020) Hx of colonoscopy Hx of cataract extraction History of right and left heart catheterization (11/16/19) History of transesophageal echocardiography (HANNY) (11/16/19) History of left heart catheterization (06/12/17) History of knee replacement, total History of tonsillectomy History of carpal tunnel release H/O: hysterectomy Social History household members: none and other details: She lives in a double wide trailer and she is . number of children: 2 Smoking Status: Never smoker alcohol intake: never substance use type: does not use caffeine: Yes Type: carbonated beverages Number of servings: 1 what type of physical activity do you participate in: none Audit: Pertinent Findings Pertinent Findings EKG Perinent findings: 11/29/2022. Atrial fibrillation. Rapid ventricular response. 109 bpm. Incomplete right bundle branch block. Nonspecific ST abnormality. Stress test pertinent findings: 10/11/2024. EF 69%. Normal myocardial perfusion stress test. Consult pertinent findings: Cardiology. 10/14/2024. Atrial fibrillation. Chronic. Pulmonary hypertension. Chronic. 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. Chronic. Stable. Coronary artery disease. Chronic. Stable. Recent stress test negative. Recommendation Anesthesia Recommendation Anesthesia recommendation: OPTIMIZED for anesthesia
[2024-11-03] VITALS (7 sets, daily range): BP systolic 103–150; BP diastolic 71–88; PULSE 72–84; RESP 16; TEMP 36.1–36.8; O2SAT 95–97; BMI 33.7
--- NOTE | 2024-11-03 11:21 | HP.PCM_ITS ---
HPI - General General Date of Admission: 11/03/24 Date of Service: 11/03/24 Chief Complaint: anemia HPI Narrative MARGARETTE WISE, is a 78 F who presents with the Chief Complaint: Anemia 09.14.20 EGD - Non-bleeding gastric ulcers with no stigmata of bleeding. Biopsied. Clip was placed. Normal esophagus. Normal examined duodenum. PATH: Mild chronic gastritis. 09.14.20 Colonoscopy - Mucosal ulceration. Biopsied. The examination was otherwise normal on direct and retroflexion views. PATH: Invasive well to moderately differentiated adenocarcinoma with associated ulceration and granulation. 10.29.20 Right hemicolectomy due to adenocarcinoma with . Staging: T3 N0 M0-stage II. 05.13.21 She presented with headaches, nausea and vomiting with high INR of 13.6. CT showed hemorrhagic brain mass in L frontal lobe and L cerebellar lobe so was transferred to [facility]. MRI brain on 05/13/2021 showed hemorrhagic mass L frontal lobe and L lateral cerebellum. CT c/a/p was negative. She remained stable with no progression of bleeding. PET/CT on 05/16/2021 at [facility] showed no evidence of metastatic disease. 05.01.22 cholecystectomy 09.13.24 She denies hematochezia, melena, hemorrhoids, abdominal pain, heartburn, reflux, nausea, emesis, difficulty chewing and swallowing. She reports diarrhea if she misses a dose of her colestipol since her gallbladder was removed. With her history of stage II colon cancer with right hemicolectomy she prefers to investigate the positive stool for OB. Explained to her that red meats can also cause positive stool OB results and she states that she really doesn't eat red meats that often. [facility], [facility] Medical History (Updated 10/31/24 @ 08:43 by Beth Moore) Post-menopausal Excessive bleeding Sleep apnea Normal Holter exam Hx of fracture of femur Ambulates with cane History of intracranial hemorrhage PONV (postoperative nausea and vomiting) Venous insufficiency of both lower extremities Osteoarthritis History of atrial fibrillation Closed fracture of right hip Fall Cholecystitis, chronic Depression Shortness of breath on exertion History of edema 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 Cardiology follow-up encounter Abdominal pain TERRAZAS (dyspnea on exertion) Difficult intravenous access Anxiety Low iron History of ulceration Non-smoker History of stress test History of echocardiogram Aortic valve stenosis, acquired Brain mass Atrial fibrillation Complicated UTI (urinary tract infection) Rt flank pain Longstanding persistent atrial fibrillation 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 Iron deficiency anemia Wears dentures Arthritis High cholesterol Easy bruising Back pain Normal stress echocardiogram (~06/03/17) Normal echocardiogram (~06/08/20) CAD (coronary artery disease) Anemia Cerumen impaction Non-rheumatic tricuspid valve insufficiency Non-rheumatic mitral regurgitation 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 Moderate to severe pulmonary hypertension Severe mitral regurgitation Vertigo GERD (gastroesophageal reflux disease) Costochondritis Mixed hyperlipidemia Paroxysmal atrial fibrillation Syncope and collapse Bradycardia bilateral feet surgery Home Medications ?Medication ?Instructions ?Recorded ?Last Taken ?Type calcium carbonate 500 mg PO DAILY Supplement 0 05/20/22 11/26/22 History acetaminophen 500 mg tablet 1,000 mg (2 x 500 mg) PO Q 8 PRN 06/10/22 11/26/22 Rx pain or fever #1 TAB cholecalciferol (vitamin D3) 25 25 mcg PO DAILYCM #30 tabs 06/10/22 11/26/22 Rx mcg (1,000 unit) tablet isosorbide mononitrate 30 mg 30 mg PO DAILY #90 tabs 1 04/20/23 Unknown Rx tablet,extended release 24 hr lisinopril 40 mg tablet 40 mg PO QDAY 08/10/24 Unkno wn History colestipol 1 gram tablet 1 g PO QHS 09/13/24 Unknown History metoprolol tartrate 50 mg tablet 50 mg PO BID #180 tab s 09/26/24 Unknown Rx pravastatin 40 mg tablet 40 mg PO QHS for cholesterol #90 09/29/24 Unknown Rx TABLETS furosemide 40 mg tablet 40 mg PO .COMPLEX Fluid rete ntion 10/14/24 Unknown Rx #125 tabs Allergy/AdvReac Type Severity Reaction Status Date / Time piroxicam Allergy CAUSES Verified 10/31/24 08:29 BLEEDING ULCER adhesive tape AdvReac Rash/BLISTE Verified 10/31/24 08:29 RS Family History Mother 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 Father , from [place] at age 69 CAD (coronary artery disease) Myocardial infarction, Onset Age: 69 Brother 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 Heart disease Myocardial infarction Pacemaker Surgical History (Updated 10/31/24 @ 08:43 by Beth Moore) History of back surgery History of cardiac catheterization Hx of reduction of closed fracture History of laparoscopic cholecystectomy History of colectomy (~10/2020) Hx of colonoscopy Hx of cataract extraction History of right and left heart catheterization (11/16/19) History of transesophageal echocardiography (HANNY) (11/16/19) History of left heart catheterization (06/12/17) History of knee replacement, total History of tonsillectomy History of carpal tunnel release H/O: hysterectomy Social History household members: none and other details: She lives in a double wide trailer and she is . number of children: 2 Smoking Status: Never smoker alcohol intake: never substance use type: does not use caffeine: Yes Type: carbonated beverages Number of servings: 1 what type of physical activity do you participate in: none ROS Constitutional Constitutional: Denies fatigue, fever(s), poor appetite, weight gain or weight loss Gastrointestinal Gastrointestinal: Denies belching, bloating, change in bowel habits, change in stool character, chewing difficulty, coffee ground emesis, constipation, cramping, diarrhea, dyspepsia, dysphagia, early satiety, excessive flatus, fecal incontinence, heartburn, hematemesis, hematochezia, hemorrhoids, loose stools, melena, nausea, odynophagia, rectal bleeding, tenesmus, vomiting or weight changes Physical Exam Const alert, oriented x3, no apparent distress and healthy appearing General Appearance: cooperative GI normal to inspection, nondistended, normoactive bowel sounds, soft to palpation, non-tender and non-distended Percussion: normal to percussion Rectal Exam: deferred Assessment & Plan Assessment/Plan (1) Anemia: QUALIFIERS: Anemia type: unspecified type Qualified Code(s): D64.9 - Anemia, unspecified PLAN: Assessment and Plan Assessment and Plan (1) Anemia: Status: Chronic Qualifiers: Anemia type: unspecified type Qualified Code(s): D64.9 - Anemia, unspecified (2) Occult blood in stools: Status: Acute (3) Colon adenocarcinoma: Status: Chronic Comment: Stage II disease. Comes for follow up. CEA is normal. No evidence of disease clinically. Plan MARGARETTE BILLIE, is a 78 F who presents to the office today for establishment with [facility] regarding stool positive for OB by her PCP and chronic anemia. Discussed care plan with her. Discussed timing of endoscopies and if she feels that we cannot schedule her soon enough, we can facilitate her possibly returning to [facility] since she is known to him. She denies feeling short of breath, excessive fatigue, dizzy or lightheaded with position changes. She has a significant cardiac history and will need clearance prior to endoscopic procedures. She is agreeable. * schedule bidirectional endoscopies with cardiac clearance * consider pill cam if endoscopies are inconclusive for bleeding source * office FU 1wk post endoscopy
[2024-11-03] MEDS: Lactated Ringers 1,000 ML 15 ML IV (11:33)
--- NOTE | 2024-11-03 12:04 | PRE.ANES_ITS ---
ASA Classification* ASA Classification ASA Classification: 3 Assessment & Plan Anesthesia* Anesthesia Assessment Anesthesia Assessment: Discussed sedation and/or anesthesia options, risks, benefits, and alternatives with patient/parents/legal guardian/POA. Questions invited. The patient/parents/legal guardian/POA seems to understand and agrees to proceed with anesthesia plan. Reviewed the physical assessment, medical history, allergy history and patient home medications list prior to surgery/procedure/anesthetic and documented any changes. Performed airway and anesthesia risk assessments. Anesthesia Type Anesthesia Type: MAC History Source History Obtained from:: Patient and Chart Anesthesia Focused Assessment* Temperature: 98.3 F Pulse Rate: 83 Blood Pressure: 150/88 Respiratory Rate: 16 Oxygen Delivery Method: Room Air Airway Assessment Mouth opens: >3 cm Mallampati Score: II Teeth Condition: Dentures Neck Range of motion (ROM): Limited ROM Labs Anesthesia Preop lab: CBC WBC 4.0 K/mm3 (4.4-11.0) L 08/17/24 10:08/17/24 RBC 3.28 M/mm3 (4.2-5.4) L 08/17/24 10:28 08/17/24 Hgb 10.5 g/dL (12.0-15.0) L 08/17/24 10: 5 Hct 32.4 % (37-47) L 08/17/24 10:28 08/17/24 Plt Count 175 K/mm3 (150-450) 08/17/24 10:28 08/17/24 CHEMISTRY Potassium 5.0 mmol/L (3.3-5.1) 10/14/24 15:04 10/14/24 Sodium 140 mmol/L (133-145) 10/14/24 15:04 10/14/24 Magnesium 2.0 mg/dL (1.6-2.6) 05/31/22 06:54 05/31/22 Phosphorus 3.0 mg/dL (2.5-4.9) 05/21/22 05:43 05/21/22 BUN 13 mg/dL (4-19) 10/14/24 15:04 10/14/24 Creatinine 0.97 mg/dL (0.70-1.20) 10/14/24 15:04 10/14/24 Glucose 89 mg/dL (70-99) 10/14/24 15:04 10/14/24 POC Glucose 106 mg/dL (70-110) 10/29/20 10:36 10/29/20 TSH 0.710 uIU/mL (0.300-4.200) 08/15/24 14:09 08/04 05/31 COAG PT 15.9 SECONDS (11.7-14.9) H 05/12/22 22:17 09/26 Pre-Assessment Diagnosis/Proposed Procedure Planned Operative Procedure(s): COLONOSCOPY/EGD Anesthesia History Anesthesia History - hand frame surgical elastic knitter: Anesthesia History - hand frame surgical elastic knitter Hx Hospitalization No 10/31/24 08:43 Any Problems With Anesthesia Yes: PONV 10/31/24 08:43 Cholinesterase deficiency No 10/31/24 08:43 You/Your Family Experience No 10/31/24 08:43 fever (hyperthermia) with Relationship Recent Exposure to Contagious No 11/03/24 11:34 Disease Does patient have nerve No 10/31/24 08:43 stimulator Patient instructed to have device shut off --Does patient have Pacemaker No 11/03/24 11:34 or ICD? When Was Last Pacemaker Check QUESTION #4 FULL TEXT: You/Your Family Experience fever (hyperthermia) with Anesthesia Last Oral Intake Last Oral intake: Last Oral Intake NPO since 08:00 11/03/24 11:34 Meds taken in AM with sips of Yes 11/03/24 11:34 water? Meds patient instructed to take am of surgery PONV PONV - hand frame surgical elastic knitter: PONV - hand frame surgical elastic knitter Female Yes 10/31/24 08:43 HX of Motion Sickness No 10/31/24 08:43 HX of N/V After Surgery No 10/31/24 08:43 Non-Smoker Yes 10/31/24 08:43 Duration of Surgery greater No 10/31/24 08:43 than 60 minutes Number of Risk Factors 2 10/31/24 08:43 PONV Score Moderate Risk 10/31/24 08:43 Height & Weight Height & Weight: Anesthesia: Height & Weight Height 4 ft 7 in 11/03/24 11:34 Weight: 65.8 kg 11/03/24 11:34 Body Mass Index (BMI) 33.7 11/03/24 11:34 Respiratory Assessment Respiratory Assessment - hand frame surgical elastic knitter: Respiratory Tract Infection Hx - hand frame surgical elastic knitter Hx Respiratory Tract Infection No 10/31/24 08:43 STOP Sleep Apnea STOP Sleep Apnea - hand frame surgical elastic knitter: STOP Sleep Apnea - hand frame surgical elastic knitter Hx 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 Yes: PER PT, CONTROLLED ON 10/31/24 08:43 MEDS Hx Sleep Apnea No 10/31/24 08:43 CPAP No 10/31/24 08:43 BIPAP Do you snore loudly (louder No 10/31/24 08:43 than talking or can be heard Do you often feel tired/ No 10/31/24 08:43 fatigued/ sleepy during daytime? Has anyone observed you stop No 10/31/24 08:43 breathing during sleep? STOP Results Negative 10/31/24 08:43 QUESTION #5 FULL TEXT : Do you snore loudly (louder than talking or can be heard through closed doors)? 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 Specify any problems Hx of Preganancy in last 3 No 10/31/24 08:43 Months Nurse Filling Out Transfusion VCHRISTIN 10/31/24 08:43 & Questions: Date: 10/31/24 10/31/24 08:43 Time: 08:44 10/31/24 08:43 Patient unable to answer at this time (ie. confused, unrespo /Reproduction History /Reproductive History - hand frame surgical elastic knitter: /Reproductive Hx- hand frame surgical elastic knitter Hx Now No 10/31/24 08:43 Gestational Age (in weeks): EDC: Hx Hx Para Hx Section SAB No 10/31/24 08:43 Active Medications Active Medications: Current Medications Generic Name Dose Route Start Last Admin Trade Name Freq PRN Reason Stop Dose Admin Lactated Ringer's 1,000 mls @ 15 mls/hr 11/03/24 11:15 11/03/24 11:33 IV 15 mls/hr .Q48H YONG Administration PFSH Medical History (Updated 10/31/24 @ 08:43 by Beth Moore) Post-menopausal Excessive bleeding Sleep apnea Normal Holter exam Hx of fracture of femur Ambulates with cane History of intracranial hemorrhage PONV (postoperative nausea and vomiting) Venous insufficiency of both lower extremities Osteoarthritis History of atrial fibrillation Closed fracture of right hip Fall Cholecystitis, chronic Depression Shortness of breath on exertion History of edema 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 Cardiology follow-up encounter Abdominal pain TERRAZAS (dyspnea on exertion) Difficult intravenous access Anxiety Low iron History of ulceration Non-smoker History of stress test History of echocardiogram Aortic valve stenosis, acquired Brain mass Atrial fibrillation Complicated UTI (urinary tract infection) Rt flank pain Longstanding persistent atrial fibrillation 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 Iron deficiency anemia Wears dentures Arthritis High cholesterol Easy bruising Back pain Normal stress echocardiogram (~06/03/17) Normal echocardiogram (~06/08/20) CAD (coronary artery disease) Anemia Cerumen impaction Non-rheumatic tricuspid valve insufficiency Non-rheumatic mitral regurgitation Essential hypertension 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 Moderate to severe pulmonary hypertension Severe mitral regurgitation Vertigo GERD (gastroesophageal reflux disease) Costochondritis Mixed hyperlipidemia Paroxysmal atrial fibrillation Syncope and collapse Bradycardia bilateral feet surgery Home Medications ?Medication ?Instructions ?Recorded ?Last Taken ?Type calcium carbonate 500 mg PO DAILY Supplement 0 05/20/22 11/26/22 History acetaminophen 500 mg tablet 1,000 mg (2 x 500 mg) PO Q 8 PRN 06/10/22 11/26/22 Rx pain or fever #1 TAB cholecalciferol (vitamin D3) 25 25 mcg PO DAILYCM #30 tabs 06/10/22 11/26/22 Rx mcg (1,000 unit) tablet isosorbide mononitrate 30 mg 30 mg PO DAILY #90 tabs 1 04/20/23 11/03/24 08:00 Rx tablet,extended release 24 hr lisinopril 40 mg tablet 40 mg PO QDAY 08/10/24 Unkno wn History colestipol 1 gram tablet 1 g PO QHS 09/13/24 Unknown History metoprolol tartrate 50 mg tablet 50 mg PO BID #180 tab s 09/26/24 11/03/24 08:00 Rx pravastatin 40 mg tablet 40 mg PO QHS for cholesterol #90 09/29/24 Unknown Rx TABLETS furosemide 40 mg tablet 40 mg PO .COMPLEX Fluid rete ntion 10/14/24 Unknown Rx #125 tabs Allergy/AdvReac Type Severity Reaction Status Date / Time piroxicam Allergy CAUSES Verified 11/03/24 11:32 BLEEDING ULCER adhesive tape AdvReac Rash/BLISTE Verified 11/03/24 11:32 RS Family History Mother 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 Father , from [place] at age 69 CAD (coronary artery disease) Myocardial infarction, Onset Age: 69 Brother 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 Heart disease Myocardial infarction Pacemaker Surgical History (Updated 10/31/24 @ 08:43 by Beth Moore) History of back surgery History of cardiac catheterization Hx of reduction of closed fracture History of laparoscopic cholecystectomy History of colectomy (~10/2020) Hx of colonoscopy Hx of cataract extraction History of right and left heart catheterization (11/16/19) History of transesophageal echocardiography (HANNY) (11/16/19) History of left heart catheterization (06/12/17) History of knee replacement, total History of tonsillectomy History of carpal tunnel release H/O: hysterectomy Social History household members: none and other details: She lives in a double wide [place] and she is . number of children: 2 Smoking Status: Never smoker alcohol intake: never substance use type: does not use caffeine: Yes Type: carbonated beverages Number of servings: 1 what type of physical activity do you participate in: none Review of Systems (Anesthesia) ROS Narrative System reviewed and no additional complaints, except as documented.
--- NOTE | 2024-11-03 12:15 | EGD_PTH ---
PATIENT: MARGARETTE WISE LOC: [facility] U#:[id number] AGE/SX: 78/F ROOM: RE11/03/[address]: Dr. Jluis Brenner DO : 1945 BED: DIS: 11/03/2024 SPEC #: [id number] RECD: 11/03/24 13:49 STATUS: ANGELA KATIA #: [id number] JOAN: 11/03/24 12:[address]: Jluis Brenner DEPT: SURGICAL PATHOLOGY RECD BY: Sergio Walden ENTERED: 11/03/24 14:57 SP TYPE: EGD BIOPSY SANJANA DR: Dr. Cassius Monaco MD Tissues: A - Esophagus, NOS Procedures: Surgery Specimen Level IV HEADER OPERATION: Colonoscopy, EGD, biopsy PRE-OP DIAGNOSIS: Anemia, occult blood in stools, colon adenocarcinoma TISSUE SUBMITTED: A- Distal esophagus biopsy MICROSCOPIC DIAGNOSIS A. Distal esophagus, biopsy: - Squamous mucosa with reactive changes. - Negative for goblet cell metaplasia MICROSCOPIC DESCRIPTION Slides are reviewed. GROSS DESCRIPTION A. Received in fixative is one container labeled with the patient's name and designated Distal esophagus biopsy. The specimen consists of one irregular fragment of light salazar soft tissue that measures 0.4 cm. The specimen is totally submitted in one cassette. IN 11/03/2024 CPT:61842
--- NOTE | 2024-11-03 13:31 | PCM.POST.ANE ---
Anesthesia: Postop Eval I Current Vital Signs Temperature: 97 F Pulse Rate: 80 Blood Pressure: 103/71 Respiratory Rate: 16 Pulse Ox: 97 Oxygen Delivery Method: Room Air Assessment Airway patent: Yes Spontaneous unlabored respirations: Yes Mental status: Calm nausea: No Vomiting: No Anesthesia Complication: No Fluid Hydration Crystalloid volume administer (ml): 300 Total IV fluid infused: 300 Progress Note Anesthesia document: Postop Eval 1 completed: Yes
--- NOTE | 2024-11-03 13:35 | OP.PROVAT_ITS ---
11/03/2024 Cassius Monaco MD [address] [place] [address] Re : Upper GI endoscopy procedure for Rhea Lawrence Dear Dr. Monaco This procedure was performed on October. My impressions and recommendations are as follows: Impressions : - LA Grade A reflux esophagitis with no bleeding. Biopsied. - No gross lesions in the entire stomach. - No gross lesions in the entire examined duodenum. Recommendations : - Discharge patient to home. - Resume previous diet. - Continue present medications. - Await pathology results. My findings are described in the full procedure note, which is enclosed. If I can be of further assistance, please feel free to contact me at . Sincerely, Jluis Brenner, 11/03/2024 1:34:26 PM This report has been signed electronically.
--- NOTE | 2024-11-03 13:35 | OP.EGD_ITS ---
Patient Name: Rhea Lawrence Procedure Date: 11/03/2024 12:55 PM Date of : 1945 Age: 78 Procedure: Upper GI endoscopy Indications: Epigastric abdominal pain, Iron deficiency anemia, Heartburn Providers: Jluis Brenner DO Referring MD: Cassius Monaco MD Medicines: Monitored Anesthesia Care Patient Profile: This is a 78 year old female. Refer to note in patient chart for documentation of history and physical. Patient has symptoms of chronic abdominal cramping and chronic dyspepsia. Complications: No immediate complications. Procedure: Pre-Anesthesia Assessment: - Prior to the procedure, a History and Physical was performed, and patient medications and allergies were reviewed. The patient is competent. The risks and benefits of the procedure and the sedation options and risks were discussed with the patient. All questions were answered and informed consent was obtained. Patient identification and proposed procedure were verified by the physician in the pre-procedure area. Mental Status Examination: alert and oriented. Airway Examination: normal oropharyngeal airway and neck mobility. Respiratory Examination: clear to auscultation. CV Examination: normal. Prophylactic Antibiotics: The patient does not require prophylactic antibiotics. Prior Anticoagulants: The patient has taken no anticoagulant or antiplatelet agents except for NSAID medication. ASA Grade Assessment: II - A patient with mild systemic disease. After reviewing the risks and benefits, the patient was deemed in satisfactory condition to undergo the procedure. The anesthesia plan was to use monitored anesthesia care (MAC). Immediately prior to administration of medications, the patient was re-assessed for adequacy to receive sedatives. The heart rate, respiratory rate, oxygen saturations, blood pressure, adequacy of pulmonary ventilation, and response to care were monitored throughout the procedure. The physical status of the patient was re-assessed after the procedure. After obtaining informed consent, the endoscope was passed under direct vision. Throughout the procedure, the patient's blood pressure, pulse, and oxygen saturations were monitored continuously. The Colonoscope was introduced through the mouth, and advanced to the third part of the duodenum. Small bowel enteroscopy was deemed necessary. The upper GI endoscopy was accomplished without difficulty. The patient tolerated the procedure well. Scope In: 1:08:36 PM Scope Out: 1:11:21 PM Total Procedure Duration Time 0 hours 2 minutes 45 seconds Findings: LA Grade A (one or more mucosal breaks less than 5 mm, not extending between tops of 2 mucosal folds) esophagitis with no bleeding was found 38 to 40 cm from the incisors. Biopsies were taken with a cold forceps for histology. Verification of patient identification for the specimen was done. Estimated blood loss was minimal. No gross lesions were noted in the entire examined stomach. No gross lesions were noted in the entire examined duodenum. Impression: - LA Grade A reflux esophagitis with no bleeding. Biopsied. - No gross lesions in the entire stomach. - No gross lesions in the entire examined duodenum. Recommendation: - Discharge patient to home. - Resume previous diet. - Continue present medications. - Await pathology results. Procedure Code(s): --- Professional --- 91002, Small intestinal endoscopy, enteroscopy beyond second portion of duodenum, not including ileum; with biopsy, single or multiple CPT copyright 2021 [employer]. All rights reserved. The codes documented in this report are preliminary and upon snowmobile mechanic review may be revised to meet current compliance requirements. Jluis Brenner DO 11/03/2024 1:34:26 PM This report has been signed electronically. Number of Addenda: 0 Note Initiated On: 11/03/2024 12:55 PM
--- NOTE | 2024-11-03 13:37 | OP.PROVAT_ITS ---
11/03/2024 Cassius Monaco MD [address] [place] [address] Re : Colonoscopy procedure for Rhea Lawrence Dear Dr. Monaco This procedure was performed on October. My impressions and recommendations are as follows: Impressions : - Patent end-to-side ileo-colonic anastomosis, characterized by healthy appearing mucosa. - The examination was otherwise normal on direct and retroflexion views. - The entire examined colon is normal. - The entire examined colon is normal. - Diverticulosis in the recto-sigmoid colon and in the sigmoid colon. - No specimens collected. Recommendations : - Discharge patient to home. - Resume previous diet. - Continue present medications. - Repeat colonoscopy in 5 years for surveillance. My findings are described in the full procedure note, which is enclosed. If I can be of further assistance, please feel free to contact me at . Sincerely, Jluis Brenner, 11/03/2024 1:37:02 PM This report has been signed electronically.
--- NOTE | 2024-11-03 13:37 | OP.COLON_ITS ---
Patient Name: Rhea Lawrence Procedure Date: 11/03/2024 1:13 PM Date of : 1945 Age: 78 Procedure: Colonoscopy Indications: High risk colon cancer surveillance: Personal history of colon cancer Providers: Jluis Brenner DO Referring MD: Cassius Monaco MD Medicines: Monitored Anesthesia Care Patient Profile: This is a 78 year old female. Refer to note in patient chart for documentation of history and physical. Patient has symptoms of chronic abdominal cramping and chronic dyspepsia. Last Colonoscopy: several years ago. Complications: No immediate complications. Procedure: Pre-Anesthesia Assessment: - Prior to the procedure, a History and Physical was performed, and patient medications and allergies were reviewed. The patient is competent. The risks and benefits of the procedure and the sedation options and risks were discussed with the patient. All questions were answered and informed consent was obtained. Patient identification and proposed procedure were verified by the physician in the pre-procedure area. Mental Status Examination: alert and oriented. Airway Examination: normal oropharyngeal airway and neck mobility. Respiratory Examination: clear to auscultation. CV Examination: normal. Prophylactic Antibiotics: The patient does not require prophylactic antibiotics. Prior Anticoagulants: The patient has taken no anticoagulant or antiplatelet agents except for NSAID medication. ASA Grade Assessment: II - A patient with mild systemic disease. After reviewing the risks and benefits, the patient was deemed in satisfactory condition to undergo the procedure. The anesthesia plan was to use monitored anesthesia care (MAC). Immediately prior to administration of medications, the patient was re-assessed for adequacy to receive sedatives. The heart rate, respiratory rate, oxygen saturations, blood pressure, adequacy of pulmonary ventilation, and response to care were monitored throughout the procedure. The physical status of the patient was re-assessed after the procedure. After I obtained informed consent, the scope was passed under direct vision. Throughout the procedure, the patient's blood pressure, pulse, and oxygen saturations were monitored continuously. The Colonoscope was introduced through the anus and advanced to the ileocolonic anastomosis. The colonoscopy was performed without difficulty. The patient tolerated the procedure well. The quality of the bowel preparation was adequate. The terminal ileum was photographed. Scope In: 1:14:38 PM Scope Withdrawal Time 0 hours 5 minutes 12 seconds Scope Out: 1:26:52 PM Total Procedure Duration Time 0 hours 12 minutes 14 seconds Findings: The perianal and digital rectal examinations were normal. There was evidence of a prior end-to-side ileo-colonic anastomosis in the ascending colon. This was patent and was characterized by healthy appearing mucosa. The anastomosis was traversed. The exam was otherwise without abnormality on direct and retroflexion views. The entire examined colon appeared normal. The entire examined colon appeared normal. A few diverticula were found in the recto-sigmoid colon and sigmoid colon. Impression: - Patent end-to-side ileo-colonic anastomosis, characterized by healthy appearing mucosa. - The examination was otherwise normal on direct and retroflexion views. - The entire examined colon is normal. - The entire examined colon is normal. - Diverticulosis in the recto-sigmoid colon and in the sigmoid colon. - No specimens collected. Recommendation: - Discharge patient to home. - Resume previous diet. - Continue present medications. - Repeat colonoscopy in 5 years for surveillance. Procedure Code(s): --- Professional --- 98054, Colonoscopy, flexible; diagnostic, including collection of specimen(s) by brushing or washing, when performed (separate procedure) CPT copyright 2021 [employer]. All rights reserved. The codes documented in this report are preliminary and upon surgery tech review may be revised to meet current compliance requirements. Jluis Brenner DO 11/03/2024 1:37:02 PM This report has been signed electronically. Number of Addenda: 0 Note Initiated On: 11/03/2024 1:13 PM
--- NOTE | 2024-11-03 14:05 | POSTOPAN2_ITS ---
Anesthesia Postop Eval I Sum Postop Eval Completion status Anesthesia document: Postop Eval 1 completed: Yes Anesthesia Postop Eval I Summary Anesthesia Postop Eval I Summary: Anesthesia Postop Eval I: Assessment Summary Airway patent Yes 11/03/24 13:31 TURBINE ROOM [email or web address].[email or web address] Spontaneous unlabored Yes 11/03/24 13:31 TURBINE ROOM ATTENDANT.TNES respirations Mental status Calm 11/03/24 13:31 TURBINE ROOM ATTENDANT.TNES nausea No 11/03/24 13:31 TURBINE ROOM ATTENDANT.TNES Vomiting No 11/03/24 13:31 TURBINE ROOM ATTENDANT.TNES Anesthesia Postop Eval I: Fluid Summary Crystalloid volume administer 300 11/03/24 13:31 TURBINE ROOM ATTENDANT.TNES (ml) Colloids volume administered ( ml) Blood Product volume administered (ml) Total IV fluid infused 300 11/03/24 13:31 TURBINE ROOM ATTENDANT.TNES Anesthesia Postop Eval I: Summary Notes Anesthesia Complication No 11/03/24 13:31 TURBINE ROOM ATTENDANT.TNES Anesthesia Complication Comment: Post-operative progress note Anesthesia: Postop Eval II Evaluation Mental status: Awake and Calm Pain Level: 1 nausea: No Vomiting: No Complications Anesthesia Complication: No
--- NOTE | 2024-11-03 14:05 | PCM.POSTANE2 ---
Anesthesia Postop Eval I Sum Postop Eval Completion status Anesthesia document: Postop Eval 1 completed: Yes Anesthesia Postop Eval I Summary Anesthesia Postop Eval I Summary: Anesthesia Postop Eval I: Assessment Summary Airway patent Yes 11/03/24 13:31 PICKER OPERATOR.[email or web address] Spontaneous unlabored Yes 11/03/24 13:31 PICKER OPERATOR.TNES respirations Mental status Calm 11/03/24 13:31 PICKER OPERATOR.TNES nausea No 11/03/24 13:31 PICKER OPERATOR.TNES Vomiting No 11/03/24 13:31 PICKER OPERATOR.TNES Anesthesia Postop Eval I: Fluid Summary Crystalloid volume administer 300 11/03/24 13:31 PICKER OPERATOR.TNES (ml) Colloids volume administered ( ml) Blood Product volume administered (ml) Total IV fluid infused 300 11/03/24 13:31 PICKER OPERATOR.TNES Anesthesia Postop Eval I: Summary Notes Anesthesia Complication No 11/03/24 13:31 PICKER OPERATOR.TNES Anesthesia Complication Comment: Post-operative progress note Anesthesia: Postop Eval II Evaluation Mental status: Awake and Calm Pain Level: 1 nausea: No Vomiting: No Complications Anesthesia Complication: No
== END 2024-11-03 14:20 | disposition home or self-care (01) ==
LOC: EN 11:10 → AC 11:11
PROVIDERS: PCP Family Medicine Geriatric Medicine; Referring Provider Family Medicine Geriatric Medicine; Visit Provider Internal Medicine Gastroenterology
PROC: 0DJD8ZZ Inspection of Lower Intestinal Tract, Via Natural or Artificial Opening Endoscopic (ICD-10-PCS; CPT 45378; principal; 2024-11-03 12:10)
DX: K21.00 Gastro-esophageal reflux disease with esophagitis, without bleeding (principal); I48.0 Paroxysmal atrial fibrillation; K57.30 Diverticulosis of large intestine without perforation or abscess without bleeding; I10 Essential (primary) hypertension; I87.2 Venous insufficiency (chronic) (peripheral); E78.2 Mixed hyperlipidemia; F41.9 Anxiety disorder, unspecified; F32.A Depression, unspecified; D50.9 Iron deficiency anemia, unspecified; I34.0 Nonrheumatic mitral (valve) insufficiency; I35.0 Nonrheumatic aortic (valve) stenosis; I25.10 Atherosclerotic heart disease of native coronary artery without angina pectoris; Z87.19 Personal history of other diseases of the digestive system; Z90.49 Acquired absence of other specified parts of digestive tract; Z85.038 Personal history of other malignant neoplasm of large intestine; Z79.899 Other long term (current) drug therapy
CPT/HCPCS: 44361; 45378; 88305

== ENCOUNTER → 2024-11-22 | Outpatient (CLI) | payer MEDICARE, SELFPAY | END | disposition home or self-care (01) | LOC: SL 19:58 | PROVIDERS: PCP Family Medicine Geriatric Medicine; Referring Provider Student in an Organized Health Care Education/Training Program; Visit Provider Student in an Organized Health Care Education/Training Program | DX: G47.10 Hypersomnia, unspecified (principal); I27.20 Pulmonary hypertension, unspecified; G47.33 Obstructive sleep apnea (adult) (pediatric) | CPT/HCPCS: 95810 ==

== ENCOUNTER → 2025-02-14 | Outpatient (CLI) | payer MEDICARE, SELFPAY | END | disposition home or self-care (01) | LOC: SL 11:54 | PROVIDERS: PCP Family Medicine Geriatric Medicine; Referring Provider Nurse Practitioner Family; Visit Provider Nurse Practitioner Family | DX: G47.33 Obstructive sleep apnea (adult) (pediatric) (principal) | CPT/HCPCS: 98960; G0463 ==

== ENCOUNTER → 2025-02-14 | Outpatient (CLI) | payer MEDICARE, SELFPAY ==
[2025-02-14 13:28] LABS: Hematocrit 33.1 % (37-47); Hemoglobin 11.0 g/dL (12.0-15.0); Immature Granulocytes Count 0.010 X10^3/uL (0.0-0.0); Mean Corp Hgb Conc 33.2 g/dL (32-36); Mean Corpuscular Volume 97.4 fL (81-99); Mean Platelet Vol. 8.9 fl (6.2-12.0); NRBC Flagged by Analyzer 0 % (0-5); Platelet Count 174 K/mm3 (150-450); RBC Distribution Width CV 13.1 % (11.6-14.6); RBC Distribution Width SD 46.5 fl (35.1-43.9); Red Blood Count 3.40 M/mm3 (4.2-5.4); White Blood Count 4.6 K/mm3 (4.4-11.0)
[2025-02-14 14:38] LABS: AST(SGOT) 25 U/L (<=31); Alanine Aminotransfer ALT/SGPT 7 U/L (<=34); Albumin, Serum 4.4 g/dL (3.4-4.8); Alkaline Phosphatase 72 U/L (35-104); Anion Gap 8 (5-15); BUN 15 mg/dL (4-19); BUN/Creat Ratio 16.0 RATIO (10-20); Calcium,Total 9.4 mg/dL (7.6-11.0); Carbon Dioxide 28.1 mmol/L (21.0-32.0); Chloride 104 mmol/L (98-108); Globulin 2.6 g/dL (2.2-4.2); Glucose 122 mg/dL (70-99); Potassium 4.2 mmol/L (3.3-5.1); Vitamin D,25 Hydroxy 32.4 ng/mL (30-100)
[2025-02-14 21:03] LABS: Xtra Tube Kwok EXTRA TUBE
== END | disposition home or self-care (01) ==
LOC: POLAB3 13:03
PROVIDERS: PCP Family Medicine Geriatric Medicine; Visit Provider Family Medicine Geriatric Medicine
DX: I10 Essential (primary) hypertension (principal); E55.9 Vitamin D deficiency, unspecified; D50.9 Iron deficiency anemia, unspecified
CPT/HCPCS: 36415; 80053; 82306; 84443; 85025

== ENCOUNTER → 2025-02-20 | Outpatient (CLI) | payer MEDICARE, SELFPAY | END | disposition home or self-care (01) | LOC: SL 13:50 | PROVIDERS: PCP Family Medicine Geriatric Medicine; Visit Provider Nurse Practitioner Family | DX: Z46.89 Encounter for fitting and adjustment of other specified devices (principal) ==

== ENCOUNTER → 2025-03-22 | Outpatient (CLI) | payer MEDICARE, SELFPAY ==
--- NOTE | 2025-03-22 15:03 | CT_ITS ---
PROCEDURE: ABDOMEN/PELVIS W IV CONT ONLY 03/22/2025 REASON FOR EXAM: HX OF COLON CA TECHNIQUE: Procedure Code: [id number] Modality: CT Procedure: ABDOMEN/PELVIS W IV CONT ONLY CT abdomen and pelvis was performed with IV contrast. Multiplanar reformats were generated. CONTRAST: Isovue 370 VOLUME: 86 mL One or more dose reduction techniques were used (e.g., Automated exposure control, adjustment of the mA and/or kV according to patient size, use of iterative reconstruction technique. RADIATION DOSE SUMMARY: CTDlvol: 25.85 mGy DLP: 1110.61 mGycm COMPARISON: 04/30/2022 and prior FINDINGS: Mild streak artifact through the pelvis related to RIGHT femoral hardware. Lung bases: Mild atelectasis/scarring. Cardiomegaly. Coronary atherosclerosis and/or stents. Mild aortic annular calcification. Aortic atherosclerosis.. Small hiatal hernia. Liver: Suspect calcifying subcapsular granuloma versus gallstone or peritoneal mouse posteriorly near the hepatorenal fossa.. 1.0 cm subcapsular indeterminate focal hypodensity along the gallbladder fossa which was not seen previously. Spleen: Unremarkable. Gallbladder/biliary: Interval cholecystectomy. Pancreas: Somewhat atrophic. Adrenals: Unremarkable. Kidneys: Subcentimeter hypodensities too small to characterize, presumed cysts. Bowel: Diverticulosis. Partial RIGHT colectomy with ileocolic anastomosis.. Lymph nodes: Unremarkable. Vasculature: Atherosclerosis. Peritoneum: Unremarkable. Bladder: Underdistended and suboptimally evaluated, grossly unremarkable. Reproductive Organs: Hysterectomy. Body Wall: Operative changes. Bones: Interval placement of partially imaged intramedullary hardware RIGHT femur traversing a chronic appearing posttraumatic deformity. Demineralization. Degenerative findings. Similar L1 compression deformity. L3 compression deformity and L4 burst fracture are new from 02/14/2023, otherwise age indeterminate. T10 compression deformity post kyphoplasty/vertebroplasty, presumed chronic given procedural changes. Mild scoliosis. CT/Abdomen/Pelvis W IV Cont ONLY IMPRESSION: 1. L3 compression deformity and L4 burst fracture are new from 02/14/2023, othe rwise age indeterminate. Correlate with history and point tenderness. 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 2. 1.0 cm hepatic hypodensity not seen previously may reflect focal steatosis h owever this is not definite. Given the context, recommend either very close CT follow-up or more definitive characterization wi multiphase hepatic protocol MRI with and without contrast. No other definite evidence of metastatic disease within the abdomen/pelvis. 3. Additional description as above. Reading Location: [id number]
[2025-03-22 15:38] LABS: Hematocrit 33.3 % (37-47); Hemoglobin 11.0 g/dL (12.0-15.0); Immature Granulocytes Count 0.010 X10^3/uL (0.0-0.0); Mean Corp Hgb Conc 33.0 g/dL (32-36); Mean Corpuscular Volume 97.4 fL (81-99); Mean Platelet Vol. 9.1 fl (6.2-12.0); NRBC Flagged by Analyzer 0 % (0-5); Platelet Count 169 K/mm3 (150-450); RBC Distribution Width CV 13.1 % (11.6-14.6); RBC Distribution Width SD 46.7 fl (35.1-43.9); Red Blood Count 3.42 M/mm3 (4.2-5.4); White Blood Count 4.0 K/mm3 (4.4-11.0)
[2025-03-22 16:30] LABS: AST(SGOT) 25 U/L (<=31); Alanine Aminotransfer ALT/SGPT 8 U/L (<=34); Albumin, Serum 4.1 g/dL (3.4-4.8); Alkaline Phosphatase 67 U/L (35-104); Anion Gap 12 (5-15); BUN 15 mg/dL (4-19); BUN/Creat Ratio 15.0 RATIO (10-20); Calcium,Total 9.3 mg/dL (7.6-11.0); Carbon Dioxide 28.1 mmol/L (21.0-32.0); Chloride 102 mmol/L (98-108); Globulin 2.4 g/dL (2.2-4.2); Glucose 109 mg/dL (70-99); LDH 220 U/L (84-246); Potassium 4.5 mmol/L (3.3-5.1)
[2025-03-24 04:07] LABS: Carcinoembryonic Antigen 1.6 ng/mL (0.0-4.7)
== END | disposition home or self-care (01) ==
PROVIDERS: PCP Family Medicine Geriatric Medicine; Referring Provider Internal Medicine Medical Oncology; Visit Provider Internal Medicine Medical Oncology
DX: C18.9 Malignant neoplasm of colon, unspecified (principal)
CPT/HCPCS: 36415; 74177; 80053; 82378; 83615; 85025; Q9967; A4216